=== PATIENT | female | born 1950 | race Caucasian/White ===

== ENCOUNTER 2016-10-31 20:43 | Emergency (ER) | payer OTHER ==
[~2016-10-31 20:43] MED LIST: ADVIN50050 INH; ALBU1NEB10 INH; AMIT10TA6 PO; ASPCH81X PO; ATOR-24 PO; BUPRTAB PO; DRGTP50 TOP; FEXO1TAB46 PO; FLX10 PO; FSM70 PO; FURO-85 PO; IPRA1AER2 INH; IPRASOL4 NEB; LORA10TA5 PO; MONT1TAB3 PO; NTRGSL/4 UT; ONDA4TAB46 PO; OXYC-106 PO; PANT40TA PO; POTA-327 PO; PRED10TA PO; ROPI0.5T15 PO; TIOTCAP INH
[2016-11-01] MEDS ORDERED: LACT1LOT3 TD (05:25)
[2016-11-01] MEDS ORDERED: ONDA4TAB46 PO (05:27)
[2016-11-01] MEDS ORDERED: DOCU100C31 PO (05:28)
[2016-11-01] MEDS ORDERED: ROPI2TAB6 PO (05:32)
[2016-11-01] MEDS ORDERED: ROPI1TAB PO (05:32)
[2016-11-01] MEDS ORDERED: BACL10TA PO (05:37)
[2016-11-01] MEDS ORDERED: ASCO500T16 PO (05:40)
[2016-11-01] MEDS ORDERED: TRAZ50TA35 PO (05:44)
[2016-11-02] MEDS ORDERED: ONDA4TAB46 PO (10:50)
[2016-11-02] MEDS ORDERED: FLM4 PO (10:50)
[2016-11-12] MEDS ORDERED: LCHC12280 TOP (11:46)
[2016-11-12] MEDS ORDERED: ALBINS/ INH (11:46)
[2016-11-12] MEDS ORDERED: OXGN (11:51)
[2016-11-12] MEDS ORDERED: PRED10TA PO (11:51)
[2016-11-12] MEDS ORDERED: NTRGSL/4 UT (11:51)
[2016-11-12] MEDS ORDERED: LEVO1TAB35 PO (11:51)
[2016-11-12] MEDS ORDERED: FLM4 PO (11:52)
[2016-11-19] MEDS ORDERED: OXYC-57 PO (09:26)
[2016-11-19] MEDS ORDERED: FLM4 PO (09:26)
[2016-11-19] MEDS ORDERED: NITR1CAP16 PO (09:26)
== END 2016-10-31 20:53 | disposition left against medical advice (07) ==
LOC: C.EDB 20:44
DX: R10.9 Unspecified abdominal pain (principal)

== ENCOUNTER 2016-11-01 03:17 | Emergency (ER) | payer OTHER ==
[~2016-11-01] VITALS: Ht 154.9 cm; Wt 110.6 kg
[2016-11-01] VITALS (9 sets, daily range): BP systolic 98–178; BP diastolic 58–113; PULSE 87–104; TEMP 36.8–37.6; O2SAT 90–95; Ht 154.9 cm; Wt 110.6 kg
[2016-11-01 03:39] LABS: BASO % 0.2 %; BASO ABS # 0.03 K/uL (0-0.2); COMPLETE YES; EOS % 0.2 %; HEMATOCRIT 44.2 % (37-47); IG% 0.2 %; LYMPH ABS # 0.67 K/uL (1.2-3.4); MEAN CELL VOLUME 87.2 fL (80-100); MEAN CORPUSCULAR HEMOGLOBIN 28.6 pg (25-34); MEAN CORPUSCULAR HGB CONC 32.8 g/dl (32-36); MEAN PLATELET VOLUME 12.5 fL (7.4-10.4); NEUT % 87.4 %; PLATELET COUNT 178 K/uL (130-400); RED BLOOD COUNT 5.07 M/uL (4.2-5.4); WHITE BLOOD COUNT 16.55 K/uL (4.8-10.8)
[2016-11-01 03:57] LABS: BUN/CREATININE RATIO 13.9 (10-20); CALCIUM 8.6 mg/dl (8.5-10.1); CREATININE 1.1 mg/dl (0.60-1.20); POTASSIUM 4.3 mmol/L (3.5-5.1)
[2016-11-01 04:45] LABS: MANUAL MICROSCOPIC REQUIRED? NO; REVIEW REQ? NO; URINE APPEARANCE CLEAR (CLEAR); URINE BILIRUBIN NEG (NEG); URINE COLOR YELLOW; URINE EPITHELIAL CELL AUTO >30 /lpf (0-5); URINE NITRITE NEG (NEG); URINE SPECIFIC GRAVITY 1.026 (1.000-1.030); UROBILINOGEN NEG (NEG); ZZUR CULT IF INDIC CLEAN CATCH NO
[2016-11-01] MEDS ORDERED: LACT1LOT3 TD (05:25)
[2016-11-01] MEDS ORDERED: ONDA4TAB46 PO (05:27)
[2016-11-01] MEDS ORDERED: HYDROmorphone INJ 0.5 MG/0.5 ML SYR IV STA (05:27)
[2016-11-01] MEDS ORDERED: DOCU100C31 PO (05:28)
[2016-11-01] MEDS ORDERED: CEFTRIAXONE SOD INJ 1 GM ADDVIAL IV STA (05:31)
[2016-11-01] MEDS ORDERED: ROPI1TAB PO (05:32)
[2016-11-01] MEDS ORDERED: ROPI2TAB6 PO (05:32)
[2016-11-01] MEDS ORDERED: BACL10TA PO (05:37)
[2016-11-01] MEDS ORDERED: ASCO500T16 PO (05:40)
[2016-11-01] MEDS ORDERED: TRAZ50TA35 PO (05:44)
[2016-11-01] MEDS ORDERED: TAMSULOSIN HCL 0.4 MG CAP PO SCH (05:59)
[2016-11-01] MEDS ORDERED: LEVALBUTEROL/IPRATROPIUM NEB INH PRN (06:45)
[2016-11-01] MEDS ORDERED: GLUCAGON FOR INJ 1 MG VIAL SQ PRN (06:45)
[2016-11-01] MEDS ORDERED: HYDROmorphone INJ 0.5 MG/0.5 ML SYR IV PRN (06:45)
[2016-11-01] MEDS ORDERED: OXYCODONE/ACETAMINOPHEN 10/325MG TAB PO PRN (06:45)
[2016-11-01] MEDS ORDERED: LORAZEPAM 2 MG/ML 1 ML VIAL IV PRN (06:45)
[2016-11-01] MEDS ORDERED: GLUCOSE 10 TABS/TUBE PO PRN (06:45)
[2016-11-01] MEDS ORDERED: GLUCOSE 40% GEL 15 GM TUBE PO PRN (06:45)
[2016-11-01] MEDS ORDERED: ACETAMINOPHEN 325 MG TAB PO PRN (06:45)
[2016-11-01] MEDS ORDERED: SODIUM CHLORIDE 0.45% 1000ML 1,000 ML IV ONE (06:45)
[2016-11-01] MEDS ORDERED: PROMETHAZINE HCL INJ 12.5 MG in SODIUM CHLORIDE 0.9% 50ML 50 ML IV PRN (06:45)
[2016-11-01] MEDS ORDERED: DEXTROSE 50% 50 ML SYR IV PRN (06:45)
[2016-11-01] MEDS ORDERED: IV FLUIDS COMPLETED PRN (06:45)
[2016-11-01 06:54] LABS: THYROID STIMULATING HORMONE 1.94 uIu/ml (0.300-4.500)
[2016-11-01] MEDS ORDERED: IPRATROPIUM BROMIDE NEB SOLN 0.02% 2.5 ML VIAL INH PRN (07:00)
[2016-11-01] MEDS ORDERED: LEVALBUTEROL 1.25MG/0.5ML NEB INH PRN (07:00)
--- NOTE | 2016-11-01 07:27 | EMERGENCY ROOM VISIT NOTE ---
History Report prepared by Renay: Jose Orozco Under the Supervision of: Dr. Rusty Juan M.D. First contact with patient: 03:21 Chief Complaint: FLANK PAIN Stated Complaint: FLANK PAIN History of Present Illness The patient is a 66 year old female who presents to the Emergency Room with complaints of persistent left-sided pain that started yesterday afternoon. The patient notes that the discomfort is similar to the symptoms she had in the past with kidney stones. She also complains of nausea. The patient was given 2 5 mg of Morphine and Zofran en route to the ED and notes that these helped her symptoms. Pt denies LOC, headache, fevers, chills, diaphoresis, visual changes, neck pain, chest pain, breathing difficulties, vomiting, melena, hematochezia, numbness, weakness, lymphadenopathy, rash, or other complaints. Source of History: patient Onset: yesterday afternoon Position: abdomen Timing: other (persistent) Associated Symptoms: + nausea Review of Systems See HPI for pertinent positives and negatives. A total of ten systems were reviewed and were otherwise negative. Past Medical & Surgical Medical Problems: (1) Benign hypertension (2) Calculus of kidney and ureter (3) Chronic Obstructive Asthma, Nos (4) Chronic obstructive lung disease (5) Diabetes mellitus type 2 (6) Dyslipidemia (7) Gastroesophageal reflux disease (8) Hypertension Nos (9) intractable vomiting (10) Lumbago (11) Morbid Obesity (12) Personal History, Pneumonia (Recurrent) (13) Renal colic (14) Sleep apnea (15) Spinal stenosis Family History High cholesterol Hypertension Social History Smoking Status: Current Every Day Smoker Alcohol Use: none Drug Use: none Marital Status: Housing Status: lives with family Occupation Status: retired Current/Historical Medications Scheduled Alendronate Sodium (Alendronate Sodium), 70 MG PO WK Amitriptyline Hcl (Elavil), 10 MG PO HS Ascorbic Acid (Ascorbic Acid), 500 MG PO DAILY Aspirin (Aspirin Chewable), 81 MG PO DAILY Atorvastatin (Lipitor), 40 MG PO DAILY Baclofen (Lioresal), 10 MG PO DAILY Bupropion Hcl (Wellbutrin Xl), 150 MG PO DAILY Docusate Sodium (Docusate Sodium), 100 MG PO BID Fentanyl (Fentanyl), 1 PATCH TOP [id number] Fluticasone Prop/Salmeterol (Advair Diskus 500-50 Mcg/Dose), 1 PUFF INH BID Furosemide (Lasix), 20 MG PO DAILY Lactic Acid (Ammonium Lactate) (Amlactin), 1 APPLN TD DAILY Montelukast Sodium (Singulair), 10 MG PO DAILY Pantoprazole (Protonix), 40 MG PO DAILY Potassium Ext Rel (Klor-Con), 10 MEQ PO BID Ropinirole (Requip), 1 MG PO Q AFTERNOON Ropinirole (Requip), 2 MG PO HS Tiotropium [place] (Spiriva [place]), 1 CAP INH DAILY Trazodone Hcl (Trazodone), 50 MG PO HS Scheduled PRN Ipratropium-Albuterol (Combivent Respimat), 1 PUFF INH QID PRN for SOB/Wheezing Ipratropium-Albuterol (Duoneb), 3 ML NEB QID PRN for Shortness of Breath Ondansetron Hcl (Zofran), 4 MG PO DAILY PRN for Nausea Oxycodone/Acetaminophen 10MG/325MG (Percocet 10MG/325MG), 1 TAB PO Q4H PRN for Pain Allergies Coded Allergies: Aspirin (Verified Allergy, Unknown, Patient can take upto 81 mg of ASA not any higher, 06/16/16) NSAIDs (Verified Allergy, Unknown, allergy, 06/16/16) Tramadol (Verified Adverse Reaction, Intermediate, URINARY RETENTION, ) Morphine (Verified Adverse Reaction, Mild, HALLUCINATIONS, 06/16/16) Physical Exam Vital Signs Date Time Temp Pulse Resp B/P Pulse Ox O2 Delivery O2 Flow Rate FiO2 11/01/16 06:20 95 22 171/94 96 Room Air 11/01/16 05:38 96 20 114/80 96 11/01/16 04:15 95 16 114/80 98 11/01/16 03:39 92 11/01/16 03:21 36.8 97 20 122/103 95 Room Air Physical Exam GENERAL: Awake, alert, well-appearing, in no distress HENT: Normocephalic, atraumatic. Oropharynx unremarkable. EYES: Normal conjunctiva. Sclera non-icteric. NECK: Supple. No nuchal rigidity. FROM. No JVD. RESPIRATORY: Clear to auscultation. CARDIAC: Regular rate, normal rhythm. Extremities warm and well perfused. Pulses equal. ABDOMEN: Soft, non-distended. No tenderness to palpation. No rebound or guarding. No masses. RECTAL: Deferred. MUSCULOSKELETAL: Chest examination reveals no tenderness. The back is symmetrical on inspection without obvious abnormality. There is left CVA tenderness to palpation. No joint edema. LOWER EXTREMITIES: Calves are equal size bilaterally and non-tender. No edema. No discoloration. NEURO: Normal sensorium. No sensory or motor deficits noted. SKIN: No rash or jaundice noted. Medical Decision & Procedures ER Provider Diagnostic Interpretation: Radiology results as stated below per my review and radiologist interpretation CT Abdomen & Pelvis: Comparison with CT dated 01/08/2014 6.5 mm calculus at the left UPJ with moderate left hydronephrosis and associated left renal enlargement and left perinephric stranding/fluid; these are findings are all likely obstructive. However would correlate clinically to exclude any superimposed infection. Multiple small left lower pole nonobstructing calyceal calculi. No bowel obstruction. No appendicitis or other inflammatory changes of bowel. Colonic diverticulitis. Pancreas and gallbladder are grossly unremarkable. Small hypodensities involving the nonenlarged spleen. No free air or free fluid. No other acute disease. Laboratory Results 11/01/16 02:55 Red Blood Count 5.07, Mean Corpuscular Volume 87.2, Mean Corpuscular Hemoglobin 28.6, Mean Corpuscular Hemoglobin Concent 32.8, Mean Platelet Volume 12.5, Neutrophils (%) (Auto) 87.4, Lymphocytes (%) (Auto) 4.0, Monocytes (%) (Auto) 8.0, Eosinophils (%) (Auto) 0.2, Basophils (%) (Auto) 0.2, Neutrophils # (Auto) 14.45, Lymphocytes # (Auto) 0.67, Monocytes # (Auto) 1.32, Eosinophils # (Auto) 0.04, Basophils # (Auto) 0.03 11/01/16 02:55 Test 11/01/16 02:55 11/01/16 04:30 11/01/16 07:10 White Blood Count 16.55 K/uL (4.8-10.8) Red Blood Count 5.07 M/uL (4.2-5.4) Hemoglobin 14.5 g/dL (12.0-16.0) Hematocrit 44.2 % (37-47) Mean Corpuscular Volume 87.2 fL (80-100) Mean Corpuscular Hemoglobin 28.6 pg (25-34) Mean Corpuscular Hemoglobin Concent 32.8 g/dl (32-36) Platelet Count 178 K/uL (130-400) Mean Platelet Volume 12.5 fL (7.4-10.4) Neutrophils (%) (Auto) 87.4 % Lymphocytes (%) (Auto) 4.0 % Monocytes (%) (Auto) 8.0 % Eosinophils (%) (Auto) 0.2 % Basophils (%) (Auto) 0.2 % Neutrophils # (Auto) 14.45 K/uL (1.4-6.5) Lymphocytes # (Auto) 0.67 K/uL (1.2-3.4) Monocytes # (Auto) 1.32 K/uL (0.11-0.59) Eosinophils # (Auto) 0.04 K/uL (0-0.5) Basophils # (Auto) 0.03 K/uL (0-0.2) RDW Standard Deviation 48.6 fL (36.4-46.3) RDW Coefficient of Variation 15.3 % (11.5-14.5) Immature Granulocyte % (Auto) 0.2 % Immature Granulocyte # (Auto) 0.04 K/uL (0.00-0.02) Anion Gap 8.0 mmol/L (3-11) Est Creatinine Clear Calc Drug Dose 57.7 ml/min Estimated GFR () 60.6 Estimated GFR (Non- 52.3 BUN/Creatinine Ratio 13.9 (10-20) Calcium Level 8.6 mg/dl (8.5-10.1) Magnesium Level 2.0 mg/dl (1.8-2.4) Total Bilirubin 0.7 mg/dl (0.2-1) Direct Bilirubin 0.1 mg/dl (0-0.2) Aspartate Amino Transf (AST/SGOT) 21 U/L (15-37) Alanine Aminotransferase (ALT/SGPT) 38 U/L (12-78) Alkaline Phosphatase 92 U/L (45-117) Total Protein 7.4 gm/dl (6.4-8.2) Albumin 3.9 gm/dl (3.4-5.0) Lipase 148 U/L (73-393) Thyroid Stimulating Hormone (TSH) 1.940 uIu/ml (0.300-4.500) Urine Color YELLOW Urine Appearance CLEAR (CLEAR) Urine pH 8.0 (4.5-7.5) Urine Specific [place] 1.026 (1.000-1.030) Urine Protein NEG (NEG) Urine Glucose (UA) TRACE (NEG) Urine Ketones NEG (NEG) Urine Occult Blood NEG (NEG) Urine Nitrite NEG (NEG) Urine Bilirubin NEG (NEG) Urine Urobilinogen NEG (NEG) Urine Leukocyte Esterase TRACE (NEG) Urine WBC (Auto) 1-5 /hpf (0-5) Urine RBC (Auto) 0-4 /hpf (0-4) Urine Hyaline Casts (Auto) 0 /lpf (0-5) Urine Epithelial Cells (Auto) >30 /lpf (0-5) Urine Bacteria (Auto) NEG (NEG) Laboratory results reviewed by me Medications Administered Medications (Trade) Dose Ordered Sig/Christiana Route Start Time Stop Time Status Last Admin Dose Admin Hydromorphone HCl (Dilaudid Inj) 0.5 mg NOW STAT IV 11/01/16 05:27 11/01/16 05:31 DC 11/01/16 05:40 0.5 MG Ceftriaxone Sodium (Rocephin Inj) 1 gm NOW STAT IV 11/01/16 05:31 11/01/16 05:33 DC 11/01/16 05:40 1 GM Tamsulosin HCl (Flomax Cap) 0.4 mg 0559 PO 11/01/16 05:59 11/01/16 06:30 DC 11/01/16 06:18 0.4 MG ED Course 0331: The patient was evaluated in room B10. A complete history and physical exam was performed. 0520: At this time, I reevaluated the patient and she was resting. She asked for her dose of chronic pain medicine that she is prescribed. Dilaudid was ordered. 0527: Ordered Dilaudid Inj 0.5 mg IV. 0529: At this time, the patient was reevaluated and she was resting. 0531: Ordered Rocephin Inj 1 gm. 0542: At this time, I discussed the patient's case with Dr. Soto - Hospitalist Kelly and he agreed to accept the patient for further evaluation. Medical Decision Prior records/ancillary studies reviewed. Triage Nursing notes reviewed and agree them. Additional history obtained from the family. The patient's history was concerning for flank and abdominal pain. Differential diagnosis: Etiologies such as renal colic, appendicitis, diverticulitis, mesenteric ischemia, aortic pathology, infections, inflammatory bowel disease, PUD, biliary pathology, UTI, as well as others were entertained. Physical examination findings: As above. ER treatment provided: IV Dilaudid IV Rocephin On reassessment the patient felt better. Diagnostic interpretation by me: The labs revealed a moderate leukocytosis of 16,000. CT imaging raise concerns about possible infection although the patient's urinalysis was unremarkable. Chemistry panel unremarkable. Urine culture pending. Imaging studies: CT of the abdomen and pelvis as above. The patient has a significant leukocytosis, large stone, and abnormal CT. I discussed further evaluation and management in the hospital. The patient was in agreement. Consultation: A consultation was placed with the hospitalist. The case was discussed and diagnostics were reviewed. The patient was evaluated in the ER for further treatment. The chart was completed utilizing [employer] Speech voice recognition software. Grammatical errors, random word insertions, pronoun errors, and incomplete sentences are an occasional consequence of this system due to software limitations, ambient noise, and hardware issues. Any formal questions or concerns about the content, text, or information contained within the body of this dictation should be directly addressed to the physician for clarification. Consults Time Called: [phone] Consulting Physician: Dr. Soto - Loraine Mendoza Returned Call: [phone] At this time, I discussed the patient's case with Dr. Soto and he agreed to accept the patient for further evaluation. Impression Primary Impression: Kidney stone Scribe Attestation The scribe's documentation has been prepared under my direction and personally reviewed by me in its entirety. I confirm that the note above accurately reflects all work, treatment, procedures, and medical decision making performed by me. Departure Information Dispostion Being Evaluated By Hospitalist Mariano Baldwin D.O. (PCP)
--- NOTE | 2016-11-01 07:29 | DIAGNOSTIC IMAGING REPORT ---
ABDOMEN AND PELVIS CT WITHOUT CONTRAST CT DOSE: 2076.27 mGy.cm HISTORY: Pain left flank pain TECHNIQUE: Multiaxial CT images of the abdomen and pelvis were performed without the use of intravenous and oral contrast according to the standard department stone protocol. COMPARISON STUDY: None. FINDINGS: Lung bases are clear. Liver pancreas is unremarkable. Several potential cysts/hypodensities in the spleen. Pancreas is uniform. Right kidney is negative for hydronephrosis. Multiple nonobstructing calcifications left kidney. Moderate left hydroureteronephrosis. 5 mm calculus left ureteropelvic junction. Ureters otherwise are normal in course and caliber. Bladder is midline. Bowel pattern is nonobstructive. The appendix is normal. IMPRESSION: 1. Obstructing 5 mm calculus left ureteropelvic junction. 2. Moderate left hydronephrosis. 3. Multiple nonobstructing calcifications mid to lower aspect left kidney. Electronically signed by: Camron Ramsey M.D. 11/01/2016 7:27 AM Dictated Date/Time: 11/01/2016 7:22 AM
[2016-11-01 07:35] LABS: PARTIAL THROMBOPLASTIN RATIO 0.9; PROTHROMBIN TIME (PATIENT) 10.3 SECONDS (9.0-12.0)
--- NOTE | 2016-11-01 08:08 | HISTORY & PHYSICAL EXAMINATION ---
DATE OF ADMISSION: 11/01/2016 PRIMARY CARE DOCTOR: Dr. Torres. Hx obtained from px and records. CHIEF COMPLAINT: Left flank pain. HISTORY OF PRESENT ILLNESS: Medical history significant for chronic respiratory failure secondary to COPD on home O2, past tobacco abuse, chronic pain on narcotics, DM2 diet controlled, mood/ anxiety disorder, urolithiasis. Recent confinement last April 2015 for COPD exacerbation. Ffw days history of achy left flank pain similar to kidney stone pain. No fever, no chills, no hematuria. Intractable pain in the Emergency Room. MEDICAL HISTORY: As above. SURGERIES: She has had urologic procedures, cataract surgery, tonsillectomy, breast punch biopsy, tonsillectomy. HOME MEDICATIONS: Include Klor-Con, Requip, Spiriva, trazodone, DuoNeb, Singulair, Zofran, Percocet, Protonix, docusate sodium, Lasix, fentanyl patch, Advair Diskus, Combivent, Elavil, ascorbic acid, aspirin chewable, alendronate, Lipitor, Wellbutrin. ALLERGIES: MORPHINE, TRAMADOL, NSAIDs. FAMILY HISTORY: Hypertension. PERSONAL AND SOCIAL HISTORY: past tobacco abuse. denies chronic ETOH intake. 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 REVIEW OF SYSTEMS: As per HPI, all other ROS negative. PHYSICAL EXAMINATION: VITAL SIGNS: Blood pressure was noted to be 122/70, pulse rate 97, RR 21, T 37 O2sats 95 on room air. GENERAL: Noted to be uncomfortable, obese, looks older for stated age, no resp distress. SKIN: Normal color. HEENT: [place] palpebral conjunctivae. Dry mucosa. NECK: Short neck. LUNGS: Decreased breath sounds. Occasional wheeze. HEART: Regular rate and rhythm. ABDOMEN: Soft. BCAK : No flank pain. EXTREMITIES: No edema. No tenderness. NEUROLOGIC: No gross focality. LABS: Hemoglobin was noted to be 14.5, white cell count 16.5, platelets 178. Sodium 141, potassium 4, chloride 104, CO2 of 29, BUN 50, creatinine 1, glucose 188 Hemoglobin A1c from [address] of the abdomen and pelvis initial read showed 6.5 mm calculus at left UPJ with moderate left hydronephrosis, perinephric stranding. Correlate clinically for superimposed infection; no enlarged spleen. UA, trace WBC esterase. ASSESSMENT: 1. Renal colic, L hx recurrent urolithiasis No sepsis for now. 2. Hypertension, stable. 3. Chronic resp failure 2 to COPD on home O2 pulmo status at baseline 4. past tobacco abuse 5. chronic pain on narcotics 6. DM2, diet controlled well controlled as of recent outpx HgA1c. PLAN: Observation GMF Flomax trial, analgesia, IVF, strain urine low threshold for initiating antibiotic rx if w/ fever spike Urology consult L renal colic (px known to Dr. Elizalde) ISS BG goal 140-180, px due for hemoglobin A1c recheck DVT prophylaxis, Lovenox subQ. Full code. MTDD
[2016-11-01] MEDS ORDERED: FENTANYL 50 MCG/HR TDSY TD SCH (09:00)
[2016-11-01] MEDS: MONTELUKAST SOD 10 MG TAB PO SCH ×2 (09:00→09:25)
[2016-11-01 09:09] LABS: ESTIMATED AVERAGE GLUCOSE 154 mg/dl; HA1C FLAG Normal (Normal)
[2016-11-01] MEDS: DOCUSATE SODIUM 100 MG CAP PO SCH ×2 (09:25→21:47)
[2016-11-01] MEDS: ASPIRIN 81 MG ECTAB PO SCH (09:25)
[2016-11-01] MEDS: FLUTICASONE/SALMETEROL (ADVAIR) 500/50 INH 14 PUFF INH SCH ×2 (09:25→21:47)
[2016-11-01] MEDS: TIOTROPIUM BROMIDE 5 PUFF/90 MCG INH INH SCH (09:25)
[2016-11-01] MEDS: BuPROPion XL 150 MG TABCR PO SCH (09:25)
[2016-11-01] MEDS: PANTOprazole SOD 40 MG TAB PO SCH (09:25)
[2016-11-01] MEDS: BACLOFEN 10 MG TAB PO SCH (09:25)
[2016-11-01] MEDS: ATORVASTATIN 40 MG TAB PO SCH (09:25)
[2016-11-01] MEDS: ENOXAPARIN 40 MG/0.4 ML SYR SQ SCH (09:30)
--- NOTE | 2016-11-01 10:20 | Urology Consultation ---
History General Date of Service: Nov 01, 2016. Chief Complaint: stones Primary Care Physician: Mariano Torres D.O. Pt seen a urologist before?: Yes If yes, why?: stones History of Present Illness I am asked by Dr Fonseca to evaluate and treat patient for stones. he is admitted with left renal colic. The ct scna shows left perinephric stranding and an obstructing left UPJ 5mm stone. She has an even larger 11mm stone in the left lower pole. She has had many stones and some ESWL with Dr Cabezas years ago. She has had pain nausea for one day. No fevers. Imaging Imaging: CT Laboratory Results Past 24 Hours Test 11/01/16 02:55 11/01/16 04:30 11/01/16 07:10 Range/Units White Blood Count 16.55 4.8-10.8 K/uL Red Blood Count 5.07 4.2-5.4 M/uL Hemoglobin 14.5 12.0-16.0 g/dL Hematocrit 44.2 37-47 % Mean Corpuscular Volume 87.2 80-100 fL Mean Corpuscular Hemoglobin 28.6 25-34 pg Mean Corpuscular Hemoglobin Concent 32.8 32-36 g/dl Platelet Count 178 130-400 K/uL Mean Platelet Volume 12.5 7.4-10.4 fL Neutrophils (%) (Auto) 87.4 % Lymphocytes (%) (Auto) 4.0 % Monocytes (%) (Auto) 8.0 % Eosinophils (%) (Auto) 0.2 % Basophils (%) (Auto) 0.2 % Neutrophils # (Auto) 14.45 1.4-6.5 K/uL Lymphocytes # (Auto) 0.67 1.2-3.4 K/uL Monocytes # (Auto) 1.32 0.11-0.59 K/uL Eosinophils # (Auto) 0.04 0-0.5 K/uL Basophils # (Auto) 0.03 0-0.2 K/uL RDW Standard Deviation 48.6 36.4-46.3 fL RDW Coefficient of Variation 15.3 11.5-14.5 % Immature Granulocyte % (Auto) 0.2 % Immature Granulocyte # (Auto) 0.04 0.00-0.02 K/uL Sodium Level 141 136-145 mmol/L Potassium Level 4.3 3.5-5.1 mmol/L Chloride Level 104 98-107 mmol/L Carbon Dioxide Level 29 21-32 mmol/L Anion Gap 8.0 3-11 mmol/L Blood Urea Nitrogen 15 7-18 mg/dl Creatinine 1.10 0.60-1.20 mg/dl Est Creatinine Clear Calc Drug Dose 57.7 ml/min Estimated GFR () 60.6 Estimated GFR (Non- 52.3 BUN/Creatinine Ratio 13.9 10-20 Random Glucose 188 70-99 mg/dl Estimated Average Glucose 154 mg/dl Hemoglobin A1c 7.0 4.5-5.6 % Calcium Level 8.6 8.5-10.1 mg/dl Magnesium Level 2.0 1.8-2.4 mg/dl Total Bilirubin 0.7 0.2-1 mg/dl Direct Bilirubin 0.1 0-0.2 mg/dl Aspartate Amino Transf (AST/SGOT) 21 15-37 U/L Alanine Aminotransferase (ALT/SGPT) 38 12-78 U/L Alkaline Phosphatase 92 45-117 U/L Total Protein 7.4 6.4-8.2 gm/dl Albumin 3.9 3.4-5.0 gm/dl Lipase 148 73-393 U/L Thyroid Stimulating Hormone (TSH) 1.940 0.300-4.500 uIu/ml Urine Color YELLOW Urine Appearance CLEAR CLEAR Urine pH 8.0 4.5-7.5 Urine Specific [place] 1.026 1.000-1.030 Urine Protein NEG NEG Urine Glucose (UA) TRACE NEG Urine Ketones NEG NEG Urine Occult Blood NEG NEG Urine Nitrite NEG NEG Urine Bilirubin NEG NEG Urine Urobilinogen NEG NEG Urine Leukocyte Esterase TRACE NEG Urine WBC (Auto) 1-5 0-5 /hpf Urine RBC (Auto) 0-4 0-4 /hpf Urine Hyaline Casts (Auto) 0 0-5 /lpf Urine Epithelial Cells (Auto) >30 0-5 /lpf Urine Bacteria (Auto) NEG NEG Prothrombin Time 10.3 9.0-12.0 SECONDS Prothromb Time International Ratio 1.0 0.9-1.1 Activated Partial Thromboplast Time 24.5 21.0-31.0 SECONDS Partial Thromboplastin Ratio 0.9 Microbiology Results 11/01/16 Urine Culture, Received Pending Labs were reviewed and are within normal limits unless listed below. Labs are available in the chart and at [facility] Problem List Medical Problems: (1) Back pain Status: Acute (2) Contusion of left chest wall Status: Acute (3) Cough Status: Acute (4) Kidney stone Status: Acute Past History anxiety, asthma, COPD, diabetes, hypertension Past Surgical History: other (stone surgery ) Family History High cholesterol Hypertension Social History Hx Tobacco Use In Past Year?: No Smoking: quit greater than 1 year Alcohol: socially Drug use: none Marital status: Housing status: lives with family Occupation status: retired Immunizations History of Influenza Vaccine: No Influenza Vaccine Date: Jun 15, 2012 History of Tetanus Vaccine?: Yes Tetanus Immunization Date: Feb 23, 2011 History of Pneumococcal: Yes Pneumococcal Date: Aug 07, 2005 History of Hepatitis B Vaccine: No History of MDRO No Allergies Coded Allergies: Aspirin (Verified Allergy, Unknown, Patient can take upto 81 mg of ASA not any higher, 06/16/16) NSAIDs (Verified Allergy, Unknown, allergy, 06/16/16) Tramadol (Verified Adverse Reaction, Intermediate, URINARY RETENTION, ) Morphine (Verified Adverse Reaction, Mild, HALLUCINATIONS, 06/16/16) Medications Home Medications: Home Meds and Scripts Medications Dose Route/Sig Max Daily Dose Days Date Category Dose Instructions Trazodone (Trazodone HCl) 50 Mg Tab 50 Mg PO HS 11/01/16 Reported Ascorbic Acid 500 Mg Tab 500 Mg PO DAILY 11/01/16 Reported Lioresal (Baclofen) 10 Mg Tab 10 Mg PO DAILY 11/01/16 Reported Requip (Ropinirole HCl) 2 Mg Tab 2 Mg PO HS 11/01/16 Reported Requip (Ropinirole HCl) 1 Mg Tab 1 Mg PO Q AFTERNOON 11/01/16 Reported Docusate Sodium 100 Mg Cap 100 Mg PO BID 11/01/16 Reported Zofran (Ondansetron HCl) 4 Mg Tab 4 Mg PO DAILY PRN 11/01/16 Reported Amlactin (Lactic Acid (Ammonium Lactate)) 12 % Lot 1 Appln TD DAILY 11/01/16 Reported APPLY TO DRY AREAS ON FEET DAILY Alendronate Sodium 70 Mg Tab 70 Mg PO WK 06/16/16 Reported Singulair (Montelukast Sodium) 10 Mg Tab 10 Mg PO DAILY 09/03/15 Reported Duoneb (Ipratropium-Albuterol) 3 Ml Nebu 3 Ml NEB QID PRN 04/25/15 Reported Elavil (Amitriptyline Hcl) 10 Mg Tab 10 Mg PO HS 01/27/15 Reported Percocet 10MG/325MG (Oxycodone/Acetaminophen) Tab 1 Tab PO Q4H PRN 01/27/15 Reported Fentanyl 50 Mcg Tdsy 1 Patch TOP [id number] 02/08/14 Reported Advair Diskus 500-50 Mcg/Dose (Fluticasone Prop/Salmeterol) 14 Puff/1 Inhaler Aerp 1 Puff INH BID 02/08/14 Reported Wellbutrin Xl (Bupropion Hcl) 150 Mg Tab 150 Mg PO DAILY 01/26/14 Reported Lasix (Furosemide) 20 Mg Tab 20 Mg PO DAILY 06/12/13 Reported Combivent Respimat (Ipratropium-Albuterol) 1 Aer Aer 1 Puff INH QID PRN 02/14/13 Reported Lipitor (Atorvastatin Calcium) 40 Mg Tab 40 Mg PO DAILY 10/20/12 Reported Aspirin Chewable (Aspirin) 81 Mg Chew 81 Mg PO DAILY 07/25/12 Reported Protonix (Pantoprazole Sodium) 40 Mg Tab 40 Mg PO DAILY 12/08/11 Reported Spiriva Handihaler (Tiotropium [place]) 18 Mcg/ Aerp 1 Cap INH DAILY 01/28/11 Reported Klor-Con (Potassium Chloride) 10 Meq Tabcr 10 Meq PO BID 05/22/09 Reported Inpatient Medications: Current Inpatient Medications Medications (Trade) Dose Ordered Sig/Christiana Route Start Time Stop Time Status Last Admin Dose Admin Tamsulosin HCl (Flomax Cap) 0.4 mg QAM PO 11/02/16 09:00 12/02/16 08:59 Enoxaparin Sodium (Lovenox Inj) 40 mg DAILY@0900 SQ 11/01/16 09:00 12/01/16 08:59 11/01/16 09:30 40 MG Acetaminophen (Tylenol Tab) 650 mg Q4H PRN PO 11/01/16 06:45 12/01/16 06:44 Insulin Aspart (novoLOG ASPART) SLIDING SCALE If C... ACHS SC 11/01/16 11:00 12/01/16 10:59 Glucose (Glucose 40% Gel) 15-30 GRAMS 15 GRAMS... UD PRN PO 11/01/16 06:45 12/01/16 06:44 Glucose (Glucose Chew Tab) 4-8 Tablets 4 Tabl... UD PRN PO 11/01/16 06:45 12/01/16 06:44 Dextrose (Dextrose 50% 50ML Syringe) 25-50ML OF 50% DW IV FOR... UD PRN IV 11/01/16 06:45 12/01/16 06:44 Glucagon (Glucagon Inj) 1 mg UD PRN SQ 11/01/16 06:45 12/01/16 06:44 Hydromorphone HCl (Dilaudid Inj) 0.5 mg Q3H PRN IV 11/01/16 06:45 11/15/16 06:44 Lorazepam (Ativan Inj) 0.5 mg Q4H PRN IV 11/01/16 06:45 12/01/16 06:44 Ondansetron HCl 4 mg 4 mg Q6H PRN IV 11/01/16 06:45 12/01/16 06:44 Promethazine HCl 12.5 mg/Sodium Chloride 50.5 ml @ 204 mls/hr Q6H PRN IV 11/01/16 06:45 12/01/16 06:44 Sodium Chloride (1/2 Nss 1000ml) 1,000 ml @ 100 mls/hr Q10H ONCE IV 11/01/16 06:45 11/01/16 16:44 11/01/16 08:37 100 MLS/HR Amitriptyline HCl (Elavil Tab) 10 mg HS PO 11/01/16 21:00 12/01/16 20:59 Aspirin (Ecotrin Tab) 81 mg DAILY PO 11/01/16 09:00 12/01/16 08:59 11/01/16 09:25 81 MG Atorvastatin Calcium (Lipitor Tab) 40 mg DAILY PO 11/01/16 09:00 12/01/16 08:59 11/01/16 09:25 40 MG Baclofen (Lioresal Tab) 10 mg DAILY PO 11/01/16 09:00 12/01/16 08:59 11/01/16 09:25 10 MG Bupropion HCl (Wellbutrin-Xl Tab) 150 mg DAILY PO 11/01/16 09:00 12/01/16 08:59 11/01/16 09:25 150 MG Docusate Sodium (coLACE CAP) 100 mg BID PO 11/01/16 09:00 12/01/16 08:59 11/01/16 09:25 100 MG Fentanyl (Duragesic Patch) 50 mcg Q72H TD 11/01/16 09:00 11/15/16 08:59 11/01/16 09:33 50 MCG Salmeterol Xinafoate/ Fluticasone (Advair Diskus 500/50 Inh) 1 puff BID INH 11/01/16 09:00 12/01/16 08:59 11/01/16 09:25 1 PUFF Pantoprazole Sodium (Protonix Tab) 40 mg DAILY PO 11/01/16 09:00 12/01/16 08:59 11/01/16 09:25 40 MG Ropinirole HCl (Requip Tab) 1 mg DAILY@1300 PO 11/01/16 13:00 12/01/16 12:59 Ropinirole HCl (Requip Tab) 2 mg HS PO 11/01/16 21:00 12/01/16 20:59 Tiotropium [place] (Spiriva Handihaler Inhaler) 1 puff DAILY INH 11/01/16 09:00 12/01/16 08:59 11/01/16 09:25 1 PUFF Trazodone HCl (Desyrel Tab) 50 mg HS PO 11/01/16 21:00 12/01/16 20:59 Oxycodone/ Acetaminophen (Percocet 10-325MG Tab) pain not relieved by tyle... Q4H PRN PO 11/01/16 06:45 11/15/16 06:44 Miscellaneous (Iv Fluids Completed) 1 ea PRN PRN N/A 11/01/16 06:45 11/01/17 06:44 Ipratropium [place] (Atrovent 0.02% 0.5MG/2.5ML Neb) 0.5 mg Q4H PRN INH 11/01/16 07:00 12/01/16 06:59 Levalbuterol (Xopenex 1.25MG/ 0.5ML Neb) 1.25 mg Q4H PRN INH 11/01/16 07:00 12/01/16 06:59 Miscellaneous (Fentanyl Patch Remove & Waste) 1 ea Q3D@0859 N/A 11/04/16 08:59 12/04/16 08:58 Miscellaneous Information (Check Fentanyl Patch Placement) 1 ea QS N/A 11/01/16 16:00 12/01/16 15:59 Montelukast Sodium (Singulair Tab) 10 mg HS PO 11/01/16 21:00 12/01/16 08:59 UNV Review of Systems Review of Systems Constitutional: No chills, No weight loss Neurological: No dizzy Endocrine: + excessive thirst, + tired/sluggish, No too cold, No too hot Gastrointestinal: + abdominal pain, + indigestion, + nausea, No constipation, No diarrhea Cardiovascular: No chest pain, No palpitations, No swelling ankles/feet Respiratory: + chronic cough, + shortness of breath Female : + infections, + kidney stones, No blood in urine, No frequent urination, No painful urination, No weak stream Physical Exam Vital Signs: Vital Signs Past 12 Hours Date Time Temp Pulse Resp B/P Pulse Ox O2 Delivery O2 Flow Rate FiO2 11/01/16 07:53 37.0 95 18 129/68 92 Room Air 11/01/16 07:40 90 22 155/79 96 11/01/16 06:20 95 22 171/94 96 Room Air 11/01/16 05:38 96 20 114/80 96 11/01/16 04:15 95 16 114/80 98 11/01/16 03:39 92 11/01/16 03:21 36.8 97 20 122/103 95 Room Air Physical Exam: General Appearance: WD/WN, no apparent distress, + obese Eyes: bilateral eyes normal inspection ENT: hearing grossly normal Neck: supple, no adenopathy, no JVD Respiratory/Chest: no respiratory distress, no accessory muscle use, + decreased breath sounds Cardiovascular: regular rate, rhythm, no edema Gastrointestinal: Abdomen: LUQ tenderness Bladder: normal bladder Renal: cva tenderness (left) Liver: normal liver Spleen: normal spleen Extremities: non-tender, normal inspection, no pedal edema, normal capillary refill Assessment & Plan Assessment & Plan obstructing 5mm left upj stone even larger left lp stone plan staged approach stent today under sedation and then in 2-3 weeks a left ureteroscopy to laser and remove all stones. 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
[2016-11-01] MEDS: INSULIN ASPART 100 UNITS/ML 3 ML PEN SC SCH ×3 (11:00→21:00)
[2016-11-01] MEDS ORDERED: LIDOCAINE 2% 20 MG/ML 5ML SYR ONE (12:27)
[2016-11-01] MEDS ORDERED: PROPOFOL IV EMULSION 10 MG/ML 20 ML VIAL IV ONE (12:27)
[2016-11-01] MEDS ORDERED: FENTANYL CITRATE INJ 50 MCG/1 ML 2 ML VIAL ONE (12:28)
[2016-11-01] MEDS ORDERED: MIDAZOLAM HCL 1 MG/ML 2ML VIAL ONE (12:28)
[2016-11-01] MEDS ORDERED: ROPINIROLE HCL 1 MG TAB PO SCH ×2 (13:00→21:00)
[2016-11-01] MEDS ORDERED: SODIUM CHLORIDE 0.9% INJ 10 ML VIAL ONE (13:24)
[2016-11-01] MEDS ORDERED: KETAMINE HCL INJ 50 MG/ML 10 ML VIAL ONE (13:24)
[2016-11-01] MEDS ORDERED: BELLADONNA/OPIUM SUPP 60 MG SUPP PR ONE ×2 (13:34→13:56)
--- NOTE | 2016-11-01 13:57 | [facility] Operative Report ---
Operative Report Operative Date Nov 01, 2016. Pre-Operative Diagnosis obstructing left upj stone, left renal stone, renal insufficiency Post-Operative Diagnosis same Procedure(s) Performed cysto left stent placement Surgeon naveed Associate Justice Surgeon(s) none Estimated Blood Loss 0mL Findings radio-opaque left upj stone and left lp renal stones Fluids 200mL Specimens none Drains 6 fr 24 centimeter double J stent Anesthesia iv sedation Complication(s) None Disposition Recovery Room / PACU (icu on the weekends) Indications severe pain from an obstructing 5mm left upj stone. also has larger left lp renal stones. plan stent to temporize pain and dilate ureter then do stone removal surgery in a few weeks. Description of Procedure Patient was sedated and placed in lithotomy position. Her severe COPD required her to have her torso elevated on blankets and pillows to ease respiration. Her genitals were prepped and draped in sterile fashion. Time out held with team. I placed a 21 fr rigid cystoscope to bladder. The urethra is unremarkable. The UOs are wide slit shape. There are small amounts white debris in the bladder but no bladder erythema. I placed a road runner wire up left ureter and placed a 24 centimeter 6 Fr double J stent easily. There is brisk efflux after placement. I left bladder empty and concluded case. I placed a belladonna and opium suppository for post-op pain. She transferred to recovery under my escort, in stable condition. Plan: Home today flomax daily oral pain meds as needed plan outpatient surgery for stones in 2-3 weeks ASA 4 clean contaminated case 8 seconds fluoro ceftriaxone antibiotic earlier this am. I attest to the content of the Intraoperative Record and any orders documented therein. Any exceptions are noted below.
--- NOTE | 2016-11-01 14:00 | DIAGNOSTIC IMAGING REPORT ---
Retrograde pyelogram RETROGRADE INCLUDES KUB CLINICAL HISTORY: CYSTO STENT stent placement TECHNIQUE: Image intensifier COMPARISON STUDY: CT abdomen and pelvis same date FINDINGS: Image intensifier was used for a left ureteral stent placement IMPRESSION: Image intensifier was used for left ureteral stent placement Electronically signed by: Camron Ramsey M.D. 11/01/2016 1:59 PM Dictated Date/Time: 11/01/2016 1:58 PM
[2016-11-01] MEDS ORDERED: ONDANSETRON INJ 2 MG/ML 2 ML VIAL ONE (14:10)
[2016-11-01] MEDS ORDERED: NURSING VERBAL MED ORDER ONE (14:10)
[2016-11-01] MEDS ORDERED: ONDANSETRON INJ 2 MG/ML 2 ML VIAL IV ONE (15:00)
--- NOTE | 2016-11-01 15:46 | Anesthesiology Progress Note ---
Anesthesia Post Op Note Date & Time Nov 01, 2016 at 15:46 Vital Signs Pain Intensity: 0 Vital Signs Past 12 Hours Date Time Temp Pulse Resp B/P Pulse Ox O2 Delivery O2 Flow Rate FiO2 11/01/16 14:35 94 18 98/58 92 Room Air 11/01/16 14:20 37.6 95 20 111/76 94 Room Air 11/01/16 14:05 36.5 90 20 126/72 96 Nasal Cannula 3 11/01/16 13:55 36.5 93 20 120/70 96 Nasal Cannula 3 11/01/16 13:47 36.5 96 20 138/84 96 Nasal Cannula 3 11/01/16 07:53 37.0 95 18 129/68 92 Room Air 11/01/16 07:40 90 22 155/79 96 11/01/16 06:20 95 22 171/94 96 Room Air 11/01/16 05:38 96 20 114/80 96 11/01/16 04:15 95 16 114/80 98 Notes Mental Status: alert / awake / arousable, participated in evaluation Pt Amnestic to Procedure: Yes Nausea / Vomiting: adequately controlled Pain: adequately controlled Airway Patency, RR, SpO2: stable & adequate BP & HR: stable & adequate Hydration State: stable & adequate Anesthetic Complications: no major complications apparent
[2016-11-01] MEDS: CHECK FENTANYL PATCH PLACEMENT SCH (16:49)
[2016-11-01] MEDS ORDERED: KETOROLAC TROMETHAMINE 30 MG/ML VIAL IV ONE (17:00)
--- NOTE | 2016-11-01 18:10 | Progress Note ---
Subjective Date of Service: Nov 01, 2016. Subjective Pt evaluation today including: conversation w/ patient, physical exam, lab review, review of studies, review of inpatient medication list Saw/examined the patient in room 253 She had a stent put in earlier today; continues to have left flank pain telling me she can't go home because of pain no nausea, no fevers Problem List Medical Problems: (1) Back pain Status: Acute (2) Contusion of left chest wall Status: Acute (3) Cough Status: Acute (4) Kidney stone Status: Acute Review of Systems Constitutional: No chills, No fever, No weakness Respiratory: No shortness of breath Cardiac: No chest pain Abdomen: + pain, + see HPI, No diarrhea, No nausea, No vomiting Musculoskeletal: No see HPI Female : No dysuria, No hematuria, No incontinence, No urinary frequency Heme: No abnormal bleeding/bruising Medications Current Inpatient Medications Medications (Trade) Dose Ordered Sig/Christiana Route Start Time Stop Time Status Last Admin Dose Admin Tamsulosin HCl (Flomax Cap) 0.4 mg QAM PO 11/02/16 09:00 12/02/16 08:59 Enoxaparin Sodium (Lovenox Inj) 40 mg DAILY@0900 SQ 11/01/16 09:00 12/01/16 08:59 11/01/16 09:30 40 MG Acetaminophen (Tylenol Tab) 650 mg Q4H PRN PO 11/01/16 06:45 12/01/16 06:44 Insulin Aspart (novoLOG ASPART) SLIDING SCALE If C... ACHS SC 11/01/16 11:00 12/01/16 10:59 Glucose (Glucose 40% Gel) 15-30 GRAMS 15 GRAMS... UD PRN PO 11/01/16 06:45 12/01/16 06:44 Glucose (Glucose Chew Tab) 4-8 Tablets 4 Tabl... UD PRN PO 11/01/16 06:45 12/01/16 06:44 Dextrose (Dextrose 50% 50ML Syringe) 25-50ML OF 50% DW IV FOR... UD PRN IV 11/01/16 06:45 12/01/16 06:44 Glucagon (Glucagon Inj) 1 mg UD PRN SQ 11/01/16 06:45 12/01/16 06:44 Hydromorphone HCl (Dilaudid Inj) 0.5 mg Q3H PRN IV 11/01/16 06:45 11/15/16 06:44 Lorazepam (Ativan Inj) 0.5 mg Q4H PRN IV 11/01/16 06:45 12/01/16 06:44 Ondansetron HCl 4 mg 4 mg Q6H PRN IV 11/01/16 06:45 12/01/16 06:44 Promethazine HCl/ Sodium Chloride (Phenergan Inj/ Nss 50ml) 50.5 ml @ 204 mls/hr Q6H PRN IV 11/01/16 06:45 12/01/16 06:44 Amitriptyline HCl (Elavil Tab) 10 mg HS PO 11/01/16 21:00 12/01/16 20:59 Aspirin (Ecotrin Tab) 81 mg DAILY PO 11/01/16 09:00 12/01/16 08:59 11/01/16 09:25 81 MG Atorvastatin Calcium (Lipitor Tab) 40 mg DAILY PO 11/01/16 09:00 12/01/16 08:59 11/01/16 09:25 40 MG Baclofen (Lioresal Tab) 10 mg DAILY PO 11/01/16 09:00 12/01/16 08:59 11/01/16 09:25 10 MG Bupropion HCl (Wellbutrin-Xl Tab) 150 mg DAILY PO 11/01/16 09:00 12/01/16 08:59 11/01/16 09:25 150 MG Docusate Sodium (coLACE CAP) 100 mg BID PO 11/01/16 09:00 12/01/16 08:59 11/01/16 09:25 100 MG Fentanyl (Duragesic Patch) 50 mcg Q72H TD 11/01/16 09:00 11/15/16 08:59 11/01/16 09:33 50 MCG Salmeterol Xinafoate/ Fluticasone (Advair Diskus 500/50 Inh) 1 puff BID INH 11/01/16 09:00 12/01/16 08:59 11/01/16 09:25 1 PUFF Pantoprazole Sodium (Protonix Tab) 40 mg DAILY PO 11/01/16 09:00 12/01/16 08:59 11/01/16 09:25 40 MG Ropinirole HCl (Requip Tab) 1 mg DAILY@1300 PO 11/01/16 13:00 12/01/16 12:59 Ropinirole HCl (Requip Tab) 2 mg HS PO 11/01/16 21:00 12/01/16 20:59 Tiotropium [place] (Spiriva Handihaler Inhaler) 1 puff DAILY INH 11/01/16 09:00 12/01/16 08:59 11/01/16 09:25 1 PUFF Trazodone HCl (Desyrel Tab) 50 mg HS PO 11/01/16 21:00 12/01/16 20:59 Oxycodone/ Acetaminophen (Percocet 10-325MG Tab) pain not relieved by tyle... Q4H PRN PO 11/01/16 06:45 11/15/16 06:44 11/01/16 15:52 2 TAB Miscellaneous (Iv Fluids Completed) 1 ea PRN PRN N/A 11/01/16 06:45 11/01/17 06:44 Ipratropium [place] (Atrovent 0.02% 0.5MG/2.5ML Neb) 0.5 mg Q4H PRN INH 11/01/16 07:00 12/01/16 06:59 Levalbuterol (Xopenex 1.25MG/ 0.5ML Neb) 1.25 mg Q4H PRN INH 11/01/16 07:00 12/01/16 06:59 Miscellaneous (Fentanyl Patch Remove & Waste) 1 ea Q3D@0859 N/A 11/04/16 08:59 12/04/16 08:58 Miscellaneous Information (Check Fentanyl Patch Placement) 1 ea QS N/A 11/01/16 16:00 12/01/16 15:59 11/01/16 16:49 1 EA Montelukast Sodium (Singulair Tab) 10 mg HS PO 11/01/16 21:00 12/01/16 08:59 Objective Vital Signs Date Time Temp Pulse Resp B/P Pulse Ox O2 Delivery O2 Flow Rate FiO2 11/01/16 16:54 37.4 95 20 133/79 92 Room Air 11/01/16 16:07 37.2 101 24 150/113 95 Nasal Cannula 3.0 11/01/16 14:35 94 18 98/58 92 Room Air 11/01/16 14:20 37.6 95 20 111/76 94 Room Air 11/01/16 14:05 36.5 90 20 126/72 96 Nasal Cannula 3 11/01/16 13:55 36.5 93 20 120/70 96 Nasal Cannula 3 11/01/16 13:47 36.5 96 20 138/84 96 Nasal Cannula 3 11/01/16 07:53 37.0 95 18 129/68 92 Room Air 11/01/16 07:40 90 22 155/79 96 11/01/16 06:20 95 22 171/94 96 Room Air 11/01/16 05:38 96 20 114/80 96 11/01/16 04:15 95 16 114/80 98 11/01/16 03:39 92 11/01/16 03:21 36.8 97 20 122/103 95 Room Air Physical Exam General Appearance: + moderate distress (secondary to pain) Respiratory/Chest: lungs clear, normal breath sounds, no respiratory distress, no accessory muscle use Cardiovascular: regular rate, rhythm, no edema, no murmur Abdomen: + tenderness (left flank) Laboratory Results Last 24 Hours Test 11/01/16 02:55 11/01/16 04:30 11/01/16 07:10 11/01/16 11:08 White Blood Count 16.55 K/uL Red Blood Count 5.07 M/uL Hemoglobin 14.5 g/dL Hematocrit 44.2 % Mean Corpuscular Volume 87.2 fL Mean Corpuscular Hemoglobin 28.6 pg Mean Corpuscular Hemoglobin Concent 32.8 g/dl Platelet Count 178 K/uL Mean Platelet Volume 12.5 fL Neutrophils (%) (Auto) 87.4 % Lymphocytes (%) (Auto) 4.0 % Monocytes (%) (Auto) 8.0 % Eosinophils (%) (Auto) 0.2 % Basophils (%) (Auto) 0.2 % Neutrophils # (Auto) 14.45 K/uL Lymphocytes # (Auto) 0.67 K/uL Monocytes # (Auto) 1.32 K/uL Eosinophils # (Auto) 0.04 K/uL Basophils # (Auto) 0.03 K/uL RDW Standard Deviation 48.6 fL RDW Coefficient of Variation 15.3 % Immature Granulocyte % (Auto) 0.2 % Immature Granulocyte # (Auto) 0.04 K/uL Sodium Level 141 mmol/L Potassium Level 4.3 mmol/L Chloride Level 104 mmol/L Carbon Dioxide Level 29 mmol/L Anion Gap 8.0 mmol/L Blood Urea Nitrogen 15 mg/dl Creatinine 1.10 mg/dl Est Creatinine Clear Calc Drug Dose 57.7 ml/min Estimated GFR () 60.6 Estimated GFR (Non- 52.3 BUN/Creatinine Ratio 13.9 Random Glucose 188 mg/dl Estimated Average Glucose 154 mg/dl Hemoglobin A1c 7.0 % Calcium Level 8.6 mg/dl Magnesium Level 2.0 mg/dl Total Bilirubin 0.7 mg/dl Direct Bilirubin 0.1 mg/dl Aspartate Amino Transf (AST/SGOT) 21 U/L Alanine Aminotransferase (ALT/SGPT) 38 U/L Alkaline Phosphatase 92 U/L Total Protein 7.4 gm/dl Albumin 3.9 gm/dl Lipase 148 U/L Thyroid Stimulating Hormone (TSH) 1.940 uIu/ml Urine Color YELLOW Urine Appearance CLEAR Urine pH 8.0 Urine Specific [place] 1.026 Urine Protein NEG Urine Glucose (UA) TRACE Urine Ketones NEG Urine Occult Blood NEG Urine Nitrite NEG Urine Bilirubin NEG Urine Urobilinogen NEG Urine Leukocyte Esterase TRACE Urine WBC (Auto) 1-5 /hpf Urine RBC (Auto) 0-4 /hpf Urine Hyaline Casts (Auto) 0 /lpf Urine Epithelial Cells (Auto) >30 /lpf Urine Bacteria (Auto) NEG Prothrombin Time 10.3 SECONDS Prothromb Time International Ratio 1.0 Activated Partial Thromboplast Time 24.5 SECONDS Partial Thromboplastin Ratio 0.9 Bedside Glucose 182 mg/dl Test 11/01/16 16:17 Bedside Glucose 153 mg/dl Assessment and Plan This is a 66 year old female with PMH of COPD on home O2, chronic narcotic use secondary to pain, DM2, obesity, depression/anxiety presents with left sided kidney stone Left Side Nephrolithiasis patient presented with kidney stone s/p stent as per urology appreciate their input will continue flomax patient was to be discharged home today, but she is in too much pain give an extra dose of IV Toradol, continue with percocet PRN Dilaudid PRN if above measures do not work COPD no exacerbation, no shortness of breath continue O2 continuously continue Spiriva, and home inhalers Chronic Pain continue home medications fentanyl patch and other home medications should have outpatient pain management consult Depression/Anxiety continue home medications DVT ppx Lovenox FULL CODE d/c home in AM (11/02)
[2016-11-01] MEDS ORDERED: AMITRIPTYLINE HCL 10 MG TAB PO SCH (21:00)
[2016-11-01] MEDS ORDERED: MONTELUKAST SOD 10 MG TAB PO SCH (21:00)
[2016-11-01] MEDS ORDERED: TRAZODONE HCL 50 MG TAB PO SCH (21:00)
[2016-11-01] MEDS: ONDANSETRON INJ 2 MG/ML 2 ML VIAL IV PRN (21:44)
[2016-11-02] MEDS: CHECK FENTANYL PATCH PLACEMENT SCH ×2 (00:01→08:00)
[2016-11-02] MEDS: ONDANSETRON INJ 2 MG/ML 2 ML VIAL IV PRN ×2 (05:51→11:22)
[2016-11-02 07:40] LABS: BASO % 0.2 %; BASO ABS # 0.02 K/uL (0-0.2); COMPLETE YES; HEMATOCRIT 34.7 % (37-47); IG% 0.1 %; LYMPH % 7.8 %; LYMPH ABS # 0.66 K/uL (1.2-3.4); MEAN CELL VOLUME 86.8 fL (80-100); MEAN CORPUSCULAR HEMOGLOBIN 27.8 pg (25-34); MEAN PLATELET VOLUME 11.9 fL (7.4-10.4); NEUT % 79.9 %; PLATELET COUNT 128 K/uL (130-400); WHITE BLOOD COUNT 8.42 K/uL (4.8-10.8)
[2016-11-02 07:41] LABS: CALCIUM 7.9 mg/dl (8.5-10.1); CREATININE 1.3 mg/dl (0.60-1.20); POTASSIUM 3.9 mmol/L (3.5-5.1)
[2016-11-02] MEDS ORDERED: NURSING VERBAL MED ORDER ONE (08:15)
[2016-11-02 08:23] VITALS: BP 131/84; PULSE 82; TEMP 36.7; O2SAT 95
[2016-11-02] MEDS ORDERED: PROMETHAZINE HCL INJ 12.5 MG in SODIUM CHLORIDE 0.9% 50ML 50 ML IV ONE (08:30)
[2016-11-02] MEDS: BACLOFEN 10 MG TAB PO SCH (08:54)
[2016-11-02] MEDS: ASPIRIN 81 MG ECTAB PO SCH (08:54)
[2016-11-02] MEDS: FLUTICASONE/SALMETEROL (ADVAIR) 500/50 INH 14 PUFF INH SCH (08:54)
[2016-11-02] MEDS: PANTOprazole SOD 40 MG TAB PO SCH (08:54)
[2016-11-02] MEDS: ATORVASTATIN 40 MG TAB PO SCH (08:55)
[2016-11-02] MEDS: TIOTROPIUM BROMIDE 5 PUFF/90 MCG INH INH SCH (08:55)
[2016-11-02] MEDS: BuPROPion XL 150 MG TABCR PO SCH (08:55)
[2016-11-02] MEDS: DOCUSATE SODIUM 100 MG CAP PO SCH (08:55)
[2016-11-02] MEDS ORDERED: TAMSULOSIN HCL 0.4 MG CAP PO SCH (09:00)
[2016-11-02] MEDS: INSULIN ASPART 100 UNITS/ML 3 ML PEN SC SCH ×2 (09:03→11:00)
[2016-11-02] MEDS: ENOXAPARIN 40 MG/0.4 ML SYR SQ SCH (09:34)
--- NOTE | 2016-11-02 10:44 | Progress Note ---
Subjective Date of Service: Nov 02, 2016. Subjective Pt evaluation today including: conversation w/ patient, physical exam, lab review, review of studies, review of inpatient medication list Saw/examined the patient in room 253 She is doing well, pain subsided +nausea, which is a chronic issue Eager to get home Problem List Medical Problems: (1) Back pain Status: Acute (2) Contusion of left chest wall Status: Acute (3) Cough Status: Acute (4) Kidney stone Status: Acute Review of Systems Constitutional: No chills, No fever, No weakness Cardiac: No chest pain, No edema, No palpitations Abdomen: + nausea, No GI bleeding, No constipation, No diarrhea, No pain (pain subsided), No vomiting Heme: No abnormal bleeding/bruising Medications Current Inpatient Medications Medications (Trade) Dose Ordered Sig/Christiana Route Start Time Stop Time Status Last Admin Dose Admin Tamsulosin HCl (Flomax Cap) 0.4 mg QAM PO 11/02/16 09:00 12/02/16 08:59 11/02/16 08:54 0.4 MG Enoxaparin Sodium (Lovenox Inj) 40 mg DAILY@0900 SQ 11/01/16 09:00 12/01/16 08:59 11/02/16 09:34 40 MG Acetaminophen (Tylenol Tab) 650 mg Q4H PRN PO 11/01/16 06:45 12/01/16 06:44 Insulin Aspart (novoLOG ASPART) SLIDING SCALE If C... ACHS SC 11/01/16 11:00 12/01/16 10:59 Glucose (Glucose 40% Gel) 15-30 GRAMS 15 GRAMS... UD PRN PO 11/01/16 06:45 12/01/16 06:44 Glucose (Glucose Chew Tab) 4-8 Tablets 4 Tabl... UD PRN PO 11/01/16 06:45 12/01/16 06:44 Dextrose (Dextrose 50% 50ML Syringe) 25-50ML OF 50% DW IV FOR... UD PRN IV 11/01/16 06:45 12/01/16 06:44 Glucagon (Glucagon Inj) 1 mg UD PRN SQ 11/01/16 06:45 12/01/16 06:44 Hydromorphone HCl (Dilaudid Inj) 0.5 mg Q3H PRN IV 11/01/16 06:45 11/15/16 06:44 Lorazepam (Ativan Inj) 0.5 mg Q4H PRN IV 11/01/16 06:45 12/01/16 06:44 Ondansetron HCl 4 mg 4 mg Q6H PRN IV 11/01/16 06:45 12/01/16 06:44 11/02/16 05:51 4 MG Promethazine HCl/ Sodium Chloride (Phenergan Inj/ Nss 50ml) 50.5 ml @ 204 mls/hr Q6H PRN IV 11/01/16 06:45 12/01/16 06:44 Amitriptyline HCl (Elavil Tab) 10 mg HS PO 11/01/16 21:00 12/01/16 20:59 11/01/16 21:47 10 MG Aspirin (Ecotrin Tab) 81 mg DAILY PO 11/01/16 09:00 12/01/16 08:59 11/02/16 08:54 81 MG Atorvastatin Calcium (Lipitor Tab) 40 mg DAILY PO 11/01/16 09:00 12/01/16 08:59 11/02/16 08:55 40 MG Baclofen (Lioresal Tab) 10 mg DAILY PO 11/01/16 09:00 12/01/16 08:59 11/02/16 08:54 10 MG Bupropion HCl (Wellbutrin-Xl Tab) 150 mg DAILY PO 11/01/16 09:00 12/01/16 08:59 11/02/16 08:55 150 MG Docusate Sodium (coLACE CAP) 100 mg BID PO 11/01/16 09:00 12/01/16 08:59 11/02/16 08:55 100 MG Fentanyl (Duragesic Patch) 50 mcg Q72H TD 11/01/16 09:00 11/15/16 08:59 11/01/16 09:33 50 MCG Salmeterol Xinafoate/ Fluticasone (Advair Diskus 500/50 Inh) 1 puff BID INH 11/01/16 09:00 12/01/16 08:59 11/02/16 08:54 1 PUFF Pantoprazole Sodium (Protonix Tab) 40 mg DAILY PO 11/01/16 09:00 12/01/16 08:59 11/02/16 08:54 40 MG Ropinirole HCl (Requip Tab) 1 mg DAILY@1300 PO 11/01/16 13:00 12/01/16 12:59 Ropinirole HCl (Requip Tab) 2 mg HS PO 11/01/16 21:00 12/01/16 20:59 11/01/16 21:46 2 MG Tiotropium [place] (Spiriva Handihaler Inhaler) 1 puff DAILY INH 11/01/16 09:00 12/01/16 08:59 11/02/16 08:55 1 PUFF Trazodone HCl (Desyrel Tab) 50 mg HS PO 11/01/16 21:00 12/01/16 20:59 11/01/16 21:47 50 MG Oxycodone/ Acetaminophen (Percocet 10-325MG Tab) pain not relieved by tyle... Q4H PRN PO 11/01/16 06:45 11/15/16 06:44 11/01/16 15:52 2 TAB Miscellaneous (Iv Fluids Completed) 1 ea PRN PRN N/A 11/01/16 06:45 11/01/17 06:44 Ipratropium [place] (Atrovent 0.02% 0.5MG/2.5ML Neb) 0.5 mg Q4H PRN INH 11/01/16 07:00 12/01/16 06:59 Levalbuterol (Xopenex 1.25MG/ 0.5ML Neb) 1.25 mg Q4H PRN INH 11/01/16 07:00 12/01/16 06:59 Miscellaneous (Fentanyl Patch Remove & Waste) 1 ea Q3D@0859 N/A 11/04/16 08:59 12/04/16 08:58 Miscellaneous Information (Check Fentanyl Patch Placement) 1 ea QS N/A 11/01/16 16:00 12/01/16 15:59 11/02/16 08:00 1 EA Montelukast Sodium (Singulair Tab) 10 mg HS PO 11/01/16 21:00 12/01/16 08:59 11/01/16 21:48 10 MG Objective Vital Signs Date Time Temp Pulse Resp B/P Pulse Ox O2 Delivery O2 Flow Rate FiO2 11/02/16 08:23 36.7 82 20 131/84 95 11/02/16 07:45 Nasal Cannula 2.0 11/01/16 23:55 Nasal Cannula 2.0 11/01/16 23:12 36.8 87 16 107/70 94 Nasal Cannula 2.0 11/01/16 19:41 Room Air 11/01/16 17:57 37.0 100 18 106/68 90 Room Air 11/01/16 16:54 37.4 95 20 133/79 92 Room Air 11/01/16 16:45 37.4 95 20 133/79 92 Room Air 11/01/16 16:07 37.2 101 24 150/113 95 Room Air 11/01/16 16:07 37.2 101 24 150/113 95 Nasal Cannula 3.0 11/01/16 14:35 94 18 98/58 92 Room Air 11/01/16 14:20 37.6 95 20 111/76 94 Room Air 11/01/16 14:05 36.5 90 20 126/72 96 Nasal Cannula 3 11/01/16 13:55 36.5 93 20 120/70 96 Nasal Cannula 3 11/01/16 13:47 36.5 96 20 138/84 96 Nasal Cannula 3 Physical Exam General Appearance: no apparent distress, + obese Respiratory/Chest: no respiratory distress, no accessory muscle use, + wheezing (mild end expiratory wheezing) Cardiovascular: regular rate, rhythm, no edema, no murmur Abdomen: normal bowel sounds, non tender, soft Extremities: normal inspection, no pedal edema Laboratory Results Last 24 Hours Test 11/01/16 11:08 11/01/16 16:17 11/01/16 19:56 11/02/16 06:40 Bedside Glucose 182 mg/dl 153 mg/dl 153 mg/dl White Blood Count 8.42 K/uL Red Blood Count 4.00 M/uL Hemoglobin 11.1 g/dL Hematocrit 34.7 % Mean Corpuscular Volume 86.8 fL Mean Corpuscular Hemoglobin 27.8 pg Mean Corpuscular Hemoglobin Concent 32.0 g/dl Platelet Count 128 K/uL Mean Platelet Volume 11.9 fL Neutrophils (%) (Auto) 79.9 % Lymphocytes (%) (Auto) 7.8 % Monocytes (%) (Auto) 11.0 % Eosinophils (%) (Auto) 1.0 % Basophils (%) (Auto) 0.2 % Neutrophils # (Auto) 6.72 K/uL Lymphocytes # (Auto) 0.66 K/uL Monocytes # (Auto) 0.93 K/uL Eosinophils # (Auto) 0.08 K/uL Basophils # (Auto) 0.02 K/uL RDW Standard Deviation 52.4 fL RDW Coefficient of Variation 16.2 % Immature Granulocyte % (Auto) 0.1 % Immature Granulocyte # (Auto) 0.01 K/uL Sodium Level 135 mmol/L Potassium Level 3.9 mmol/L Chloride Level 101 mmol/L Carbon Dioxide Level 27 mmol/L Anion Gap 7.0 mmol/L Blood Urea Nitrogen 26 mg/dl Creatinine 1.30 mg/dl Est Creatinine Clear Calc Drug Dose 49.0 ml/min Estimated GFR () 49.5 Estimated GFR (Non- 42.7 BUN/Creatinine Ratio 20.0 Random Glucose 156 mg/dl Calcium Level 7.9 mg/dl Test 11/02/16 07:25 Bedside Glucose 150 mg/dl Assessment and Plan This is a 66 year old female with PMH of COPD on home O2, chronic narcotic use secondary to pain, DM2, obesity, depression/anxiety presents with left sided kidney stone Left Side Nephrolithiasis 11/02 pain has subsided will d/c patient home today Flomax to be discharged home pain medications for pain will prescribe Zofran for nausea outpatient f/u with Dr. Torres on 11/10 @ 8:50AM outpatient urology follow-up 11/01 patient presented with kidney stone s/p stent as per urology appreciate their input will continue flomax patient was to be discharged home today, but she is in too much pain give an extra dose of IV Toradol, continue with percocet PRN Dilaudid PRN if above measures do not work COPD no exacerbation, no shortness of breath continue O2 continuously continue Spiriva, and home inhalers Chronic Pain continue home medications fentanyl patch and other home medications should have outpatient pain management consult Depression/Anxiety continue home medications DVT ppx Lovenox FULL CODE d/c home in AM (11/02)
[2016-11-02] MEDS ORDERED: ONDA4TAB46 PO (10:50)
[2016-11-02] MEDS ORDERED: FLM4 PO (10:50)
--- NOTE | 2016-11-02 11:00 | Discharge Instructions ---
Discharge Instructions Date of Service Nov 02, 2016. Admission Reason for Admission: Renal Colic Discharge Discharge Diagnosis / Problem: Left Renal Colic; nephrolithiasis Discharge Goals Goal(s): Decrease discomfort, Improve function, Diagnostic testing, Therapeutic intervention Activity Recommendations Activity Limitations: resume your previous activity . Instructions / Follow-Up Instructions / Follow-Up Please follow-up with Dr. Torres on November 10 @ 8:50AM * Will prescribe Flomax - to use daily * Outpatient urology follow-up for outpatient surgery Current Hospital Diet Patient's current hospital diet: AHA Diet (Heart Healthy), Diabetes Type 2 Diet Discharge Diet Recommended Diet: AHA Diet (Heart Healthy), Diabetes Type 2 Diet Procedures Procedures Performed: Cystscopy with left ureteral stent insertion Pending Studies Studies pending at discharge: no Laboratory Results Hemoglobin A1c Test 11/01/16 02:55 Range/Units Estimated Average Glucose 154 mg/dl Hemoglobin A1c 7.0 H 4.5-5.6 % Medical Emergencies . Who to Call and When: Medical Emergencies: If at any time you feel your situation is an emergency, please call 911 immediately. . Non-Emergent Contact Non-Emergency issues call your: Primary Care Provider, Urologist . . "Provider Documentation" section prepared by [employer]. VTE Core Measure Inpt VTE Proph given/why not?: Enoxaparin (Lovenox)SQ
--- NOTE | 2016-11-02 11:03 | Discharge Summary ---
Discharge Summary Date of Service Nov 02, 2016. Discharge Summary Admission Date: Nov 01, 2016 at 06:16 Discharge Date: Nov 02, 2016 Discharge Disposition: Home Principal Diagnosis: Left Renal Colic/Nephrolithiasis Medication Reconciliation New Medications: Tamsulosin HCl (Tamsulosin HCl) 0.4 Mg Cap 0.4 MG PO QAM for 30 Days, #30 CAP Continued Medications: Alendronate Sodium (Alendronate Sodium) 70 Mg Tab 70 MG PO WK Amitriptyline Hcl (Elavil) 10 Mg Tab 10 MG PO HS Ascorbic Acid (Ascorbic Acid) 500 Mg Tab 500 MG PO DAILY, TAB Aspirin (Aspirin Chewable) 81 Mg Chew 81 MG PO DAILY Atorvastatin (Lipitor) 40 Mg Tab 40 MG PO DAILY Baclofen (Lioresal) 10 Mg Tab 10 MG PO DAILY, TAB Bupropion Hcl (Wellbutrin Xl) 150 Mg Tab 150 MG PO DAILY Docusate Sodium (Docusate Sodium) 100 Mg Cap 100 MG PO BID, CAP Fentanyl (Fentanyl) 50 Mcg Tdsy 1 PATCH TOP CQ72HR Fluticasone Prop/Salmeterol (Advair Diskus 500-50 Mcg/Dose) 14 Puff/1 Inhaler Aerp 1 PUFF INH BID Furosemide (Lasix) 20 Mg Tab 20 MG PO DAILY Ipratropium-Albuterol (Combivent Respimat) 1 Aer Aer 1 PUFF INH QID PRN for SOB/Wheezing Ipratropium-Albuterol (Duoneb) 3 Ml Nebu 3 ML NEB QID PRN for Shortness of Breath Lactic Acid (Ammonium Lactate) (Amlactin) 12 % Lot 1 APPLN TD DAILY APPLY TO DRY AREAS ON FEET DAILY Montelukast Sodium (Singulair) 10 Mg Tab 10 MG PO DAILY Ondansetron Hcl (Zofran) 4 Mg Tab 4 MG PO DAILY PRN for Nausea for 10 Days, #10 TAB (This prescription has been renewed) Oxycodone/Acetaminophen 10MG/325MG (Percocet 10MG/325MG) Tab 1 TAB PO Q4H PRN for Pain Pantoprazole (Protonix) 40 Mg Tab 40 MG PO DAILY, 0 Refills Potassium Ext Rel (Klor-Con) 10 Meq Tabcr 10 MEQ PO BID Ropinirole (Requip) 1 Mg Tab 1 MG PO Q AFTERNOON, TAB Ropinirole (Requip) 2 Mg Tab 2 MG PO HS, TAB Tiotropium [place] (Spiriva Handihaler) 18 Mcg/ Aerp 1 CAP INH DAILY, 0 Refills Trazodone Hcl (Trazodone) 50 Mg Tab 50 MG PO HS, TAB Admission Information Physical Exam (per Admitting): DATE OF ADMISSION: 11/01/2016 PRIMARY CARE DOCTOR: Dr. Torres. Hx obtained from px and records. CHIEF COMPLAINT: Left flank pain. HISTORY OF PRESENT ILLNESS: Medical history significant for chronic respiratory failure secondary to COPD on home O2, past tobacco abuse, chronic pain on narcotics, DM2 diet controlled, mood/ anxiety disorder, urolithiasis. Recent confinement last April 2015 for COPD exacerbation. Ffw days history of achy left flank pain similar to kidney stone pain. No fever, no chills, no hematuria. Intractable pain in the Emergency Room. MEDICAL HISTORY: As above. SURGERIES: She has had urologic procedures, cataract surgery, tonsillectomy, breast punch biopsy, tonsillectomy. HOME MEDICATIONS: Include Klor-Con, Requip, Spiriva, trazodone, DuoNeb, Singulair, Zofran, Percocet, Protonix, docusate sodium, Lasix, fentanyl patch, Advair Diskus, Combivent, Elavil, ascorbic acid, aspirin chewable, alendronate, Lipitor, Wellbutrin. ALLERGIES: MORPHINE, TRAMADOL, NSAIDs. FAMILY HISTORY: Hypertension. PERSONAL AND SOCIAL HISTORY: past tobacco abuse. denies chronic ETOH intake. 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 REVIEW OF SYSTEMS: As per HPI, all other ROS negative. PHYSICAL EXAMINATION: VITAL SIGNS: Blood pressure was noted to be 122/70, pulse rate 97, RR 21, T 37 O2sats 95 on room air. GENERAL: Noted to be uncomfortable, obese, looks older for stated age, no resp distress. SKIN: Normal color. HEENT: [place] palpebral conjunctivae. Dry mucosa. NECK: Short neck. LUNGS: Decreased breath sounds. Occasional wheeze. HEART: Regular rate and rhythm. ABDOMEN: Soft. BCAK : No flank pain. EXTREMITIES: No edema. No tenderness. NEUROLOGIC: No gross focality. LABS: Hemoglobin was noted to be 14.5, white cell count 16.5, platelets 178. Sodium 141, potassium 4, chloride 104, CO2 of 29, BUN 50, creatinine 1, glucose 188 Hemoglobin A1c from [address] of the abdomen and pelvis initial read showed 6.5 mm calculus at left UPJ with moderate left hydronephrosis, perinephric stranding. Correlate clinically for superimposed infection; no enlarged spleen. UA, trace WBC esterase. ASSESSMENT: 1. Renal colic, L hx recurrent urolithiasis No sepsis for now. 2. Hypertension, stable. 3. Chronic resp failure 2 to COPD on home O2 pulmo status at baseline 4. past tobacco abuse 5. chronic pain on narcotics 6. DM2, diet controlled well controlled as of recent outpx HgA1c. PLAN: Observation GMF Flomax trial, analgesia, IVF, strain urine low threshold for initiating antibiotic rx if w/ fever spike Urology consult L renal colic (px known to Dr. Elizalde) ISS BG goal 140-180, px due for hemoglobin A1c recheck DVT prophylaxis, Lovenox subQ. Full code. Hospital Course This is a 66 year old female with PMH of COPD on home O2, chronic narcotic use secondary to pain, DM2, obesity, depression/anxiety presents with left sided kidney stone Left Side Nephrolithiasis 11/02 pain has subsided will d/c patient home today Flomax to be discharged home pain medications for pain will prescribe Zofran for nausea outpatient f/u with Dr. Torres on 11/10 @ 8:50AM outpatient urology follow-up 11/01 patient presented with kidney stone s/p stent as per urology appreciate their input will continue flomax patient was to be discharged home today, but she is in too much pain give an extra dose of IV Toradol, continue with percocet PRN Dilaudid PRN if above measures do not work COPD no exacerbation, no shortness of breath continue O2 continuously continue Spiriva, and home inhalers Chronic Pain continue home medications fentanyl patch and other home medications should have outpatient pain management consult Depression/Anxiety continue home medications DVT ppx Lovenox FULL CODE d/c home in AM (11/02) Total time spent on discharge = 25 minutes This includes examination of the patient, discharge planning, medication reconciliation, and communication with other providers. Discharge Instructions Please follow-up with Dr. Torres on November 10 @ 8:50AM * Will prescribe Flomax - to use daily * Outpatient urology follow-up for outpatient surgery
[2016-11-02 12:41] VITALS: BP 131/84; PULSE 82; TEMP 36.7; O2SAT 95
[2016-11-04] MEDS ORDERED: FENTANYL PATCH REMOVE & WASTE SCH (08:59)
[2016-11-12] MEDS ORDERED: LCHC12280 TOP (11:46)
[2016-11-12] MEDS ORDERED: ALBINS/ INH (11:46)
[2016-11-12] MEDS ORDERED: LEVO1TAB35 PO (11:51)
[2016-11-12] MEDS ORDERED: OXGN (11:51)
[2016-11-12] MEDS ORDERED: NTRGSL/4 UT (11:51)
[2016-11-12] MEDS ORDERED: PRED10TA PO (11:51)
[2016-11-12] MEDS ORDERED: FLM4 PO (11:52)
[2016-11-19] MEDS ORDERED: OXYC-57 PO (09:26)
[2016-11-19] MEDS ORDERED: NITR1CAP16 PO (09:26)
[2016-11-19] MEDS ORDERED: FLM4 PO (09:26)
[2017-06-27] MEDS ORDERED: GENT0.3S6 OPB (02:57)
== END 2016-11-02 13:00 | disposition home or self-care (01) ==
LOC: ENRESERVTM → ENRESERVDT → EDBD 03:17 → C.EDB 03:18 → C.MS2W 06:16
PROVIDERS: ADMIT Family Medicine; ATTEND Family Medicine
DX: N23 Unspecified renal colic (principal); N20.0 Calculus of kidney; I10 Essential (primary) hypertension; E78.5 Hyperlipidemia, unspecified; K21.9 Gastro-esophageal reflux disease without esophagitis; J45.909 Unspecified asthma, uncomplicated; J44.9 Chronic obstructive pulmonary disease, unspecified; F32.9 Major depressive disorder, single episode, unspecified; E11.9 Type 2 diabetes mellitus without complications; E66.01 Morbid (severe) obesity due to excess calories; Z68.42 Body mass index [BMI] 45.0-49.9, adult; Z88.5 Allergy status to narcotic agent; Z79.82 Long term (current) use of aspirin; Z79.899 Other long term (current) drug therapy; Z90.89 Acquired absence of other organs; Z98.49 Cataract extraction status, unspecified eye; Z98.890 Other specified postprocedural states; Z86.718 Personal history of other venous thrombosis and embolism; Z87.891 Personal history of nicotine dependence; Z82.49 Family history of ischemic heart disease and other diseases of the circulatory system

== ENCOUNTER 2016-11-19 05:12 | Day surgery (SDC) | payer OTHER ==
[2016-11-12 11:54] VITALS: BMI 46.0
--- NOTE | 2016-11-12 12:36 | PAT Medication Instructions ---
Service Date Nov 12, 2016. Current Home Medication List Albuterol Sulf (Proventil 0.083% 2.5MG/3ML), 2.5 MG INH QID PRN for PRN Alendronate Sodium (Alendronate Sodium), 70 MG PO WK Amitriptyline Hcl (Elavil), 10 MG PO HS Aspirin (Aspirin Chewable), 81 MG PO QAM Atorvastatin (Lipitor), 40 MG PO QAM Baclofen (Lioresal), 10 MG PO BID Bupropion Hcl (Wellbutrin Xl), 150 MG PO QAM Docusate Sodium (Docusate Sodium), 100 MG PO BID PRN for PRN Fentanyl (Fentanyl), 1 PATCH TOP CQ72HR Fluticasone Prop/Salmeterol (Advair Diskus 500-50 Mcg/Dose), 1 PUFF INH BID Furosemide (Lasix), 20 MG PO QAM Ipratropium-Albuterol (Combivent Respimat), 1 PUFF INH QID PRN for SOB/Wheezing Lactic Acid (Ammonium Lactate Cream 12%), 1 DOSE TOP DAILY Levofloxacin (Levaquin), 750 MG PO UD PRN for RN Montelukast Sodium (Singulair), 10 MG PO QAM Nitroglycerin (Nitrostat), 0.4 MG UT PRN Ondansetron Hcl (Zofran), 4 MG PO DAILY PRN for Nausea Oxycodone/Acetaminophen 10MG/325MG (Percocet 10MG/325MG), 1 TAB PO Q8H PRN for Pain Oxygen (Oxygen), 2.5 LITERS NA HS Pantoprazole (Protonix), 40 MG PO BID Potassium Ext Rel (Klor-Con), 10 MEQ PO BID Prednisone Tab (Prednisone), 10 MG PO UD PRN for RN Ropinirole (Requip), 1 MG PO HS Tamsulosin HCl (Tamsulosin HCl), 0.4 MG PO QAM Tiotropium [place] (Spiriva Handihaler), 1 CAP INH QAM Medication Instructions For Your Scheduled Surgery - Check surgeon/family doctor for instructions: Aspirin (Aspirin Chewable), 81 MG PO QAM - Continue as directed Fentanyl (Fentanyl), 1 PATCH TOP CQ72HR (avoid placing at surgical site) Alendronate Sodium (Alendronate Sodium), 70 MG PO WK (check if okay with family doctor) - Hold the following medications the morning of surgery: Tamsulosin HCl (Tamsulosin HCl), 0.4 MG PO QAM Potassium Ext Rel (Klor-Con), 10 MEQ PO BID Montelukast Sodium (Singulair), 10 MG PO QAM Lactic Acid (Ammonium Lactate Cream 12%), 1 DOSE TOP DAILY Furosemide (Lasix), 20 MG PO QAM Docusate Sodium (Docusate Sodium), 100 MG PO BID PRN for PRN Baclofen (Lioresal), 10 MG PO BID - Take the following medications the morning of surgery with a sip of water: Tiotropium [place] (Spiriva Handihaler), 1 CAP INH QAM Prednisone Tab (Prednisone), 10 MG PO UD PRN for RN (rescue kit)-- if needed Levofloxacin (Levaquin), 750 MG PO UD PRN for RN (rescue kit)-- if needed Pantoprazole (Protonix), 40 MG PO BID Ondansetron Hcl (Zofran), 4 MG PO DAILY PRN for Nausea Nitroglycerin (Nitrostat), 0.4 MG UT PRN Ipratropium-Albuterol (Combivent Respimat), 1 PUFF INH QID PRN for SOB/Wheezing Fluticasone Prop/Salmeterol (Advair Diskus 500-50 Mcg/Dose), 1 PUFF INH BID Bupropion Hcl (Wellbutrin Xl), 150 MG PO QAM Atorvastatin (Lipitor), 40 MG PO QAM Albuterol Sulf (Proventil 0.083% 2.5MG/3ML), 2.5 MG INH QID PRN for PRN (bring with you to hospital morning of surgery) Oxycodone/Acetaminophen 10MG/325MG (Percocet 10MG/325MG), 1 TAB PO Q8H PRN for Pain (okay to take up to 4 hours prior to surgery if needed) - Hold the following medications as scheduled the night before surgery: Ropinirole (Requip), 1 MG PO HS - Take the following medications as scheduled the night before surgery: Prednisone Tab (Prednisone), 10 MG PO UD PRN for RN (rescue kit)-- if needed Levofloxacin (Levaquin), 750 MG PO UD PRN for RN (rescue kit)-- if needed Potassium Ext Rel (Klor-Con), 10 MEQ PO BID Pantoprazole (Protonix), 40 MG PO BID Oxygen (Oxygen), 2.5 LITERS NA HS Ondansetron Hcl (Zofran), 4 MG PO DAILY PRN for Nausea Nitroglycerin (Nitrostat), 0.4 MG UT PRN Ipratropium-Albuterol (Combivent Respimat), 1 PUFF INH QID PRN for SOB/Wheezing Fluticasone Prop/Salmeterol (Advair Diskus 500-50 Mcg/Dose), 1 PUFF INH BID Docusate Sodium (Docusate Sodium), 100 MG PO BID PRN for PRN Baclofen (Lioresal), 10 MG PO BID Amitriptyline Hcl (Elavil), 10 MG PO HS Albuterol Sulf (Proventil 0.083% 2.5MG/3ML), 2.5 MG INH QID PRN for PRN Oxycodone/Acetaminophen 10MG/325MG (Percocet 10MG/325MG), 1 TAB PO Q8H PRN for Pain If you have any questions please call us at [phone] (Kisha Biggs PA-C) or [phone] or [phone]
--- NOTE | 2016-11-12 13:44 | DIAGNOSTIC IMAGING REPORT ---
TWO VIEW CHEST CLINICAL HISTORY: Preoperative examination. FINDINGS: PA and lateral chest radiographs are compared to study dated 06/16/2016 and correlated with chest CT dated 01/27/2015. The examination is degraded by large body habitus. The heart is mildly enlarged and there is atherosclerotic calcification of the thoracic aorta. The pulmonary vasculature is noncongested. Chronic interstitial thickening is unchanged. The lungs and pleural spaces are clear. There is no pneumothorax. The skeletal structures are osteopenic. Degenerative change is noted throughout the thoracic spine. IMPRESSION: Mild cardiac enlargement with no active disease in the chest. Electronically signed by: John Foster M.D. 11/12/2016 1:43 PM Dictated Date/Time: 11/12/2016 1:42 PM
[~2016-11-19] VITALS: Ht 154.9 cm; Wt 109.9 kg
[~2016-11-19 05:12] MED LIST changes: +ALBINS/ INH; -ALBU1NEB10 INH; +BACL10TA PO; +DOCU100C31 PO; -FEXO1TAB46 PO; +FLM4 PO; -FLX10 PO; -IPRASOL4 NEB; +LCHC12280 TOP; +LEVO1TAB35 PO; -LORA10TA5 PO; +OXGN; -ROPI0.5T15 PO; +ROPI1TAB PO
[2016-11-19 05:43] VITALS: BP 168/81; PULSE 90; TEMP 36.9; O2SAT 95; Ht 154.9 cm; Wt 109.9 kg
[2016-11-19] MEDS ORDERED: CEFAZOLIN 2000 MG/60 ML D5W IV SCH (06:00)
[2016-11-19] MEDS ORDERED: LACTATED RINGER'S 1000ML 1,000 ML IV SCH (06:00)
[2016-11-19] MEDS ORDERED: ROCURONIUM BROMIDE 10 MG/ML 5 ML VIAL ONE (06:48)
[2016-11-19] MEDS ORDERED: ONDANSETRON INJ 2 MG/ML 2 ML VIAL ONE (06:48)
[2016-11-19] MEDS ORDERED: PROPOFOL IV EMULSION 10 MG/ML 20 ML VIAL IV ONE (06:48)
[2016-11-19] MEDS ORDERED: FENTANYL CITRATE INJ 50 MCG/1 ML 2 ML VIAL ONE (06:48)
[2016-11-19] MEDS ORDERED: SUCCINYLCHOLINE CHLORIDE 20 MG/ML 10 ML VIAL IV ONE (06:48)
[2016-11-19] MEDS ORDERED: DEXAMETHASONE SOD INJ 4 MG/ML VIAL ONE (06:48)
[2016-11-19] MEDS ORDERED: LIDOCAINE HCL 2% 2 ML VIAL (20MG/ML) ONE (06:48)
--- NOTE | 2016-11-19 07:08 | History and Physical ---
History Date of Service: Nov 19, 2016. Chief Complaint: left ureteral and kidney stones Primary Care Physician: Mariano Torres D.O. Pt seen a urologist before?: Yes History of Present Illness Patient presents for treatment of her left kidney stones. She was urgently stented mid October. She will have stone laser litho today. Imaging CT Laboratory Labs were reviewed and are within normal limits unless listed below. Labs are available in the chart and at [facility] Problem List Medical Problems: (1) Back pain Status: Acute (2) Contusion of left chest wall Status: Acute (3) Cough Status: Acute (4) Kidney stone Status: Acute Past History Past Medical History: anxiety, asthma, COPD, diabetes, GERD, hypertension Pt had a problem w anesthesia?: No Past Surgical History: other Family History High cholesterol Hypertension Social History Hx Tobacco Use In Past Year?: No (SMOKED 1 PPD X 50 YRS-QUIT 2013) Smoking: quit greater than 1 year Alcohol: socially Drug use: none Marital status: Housing status: lives with family Occupation status: retired Immunizations History of Influenza Vaccine: No Influenza Vaccine Date: Jun 15, 2012 History of Tetanus Vaccine?: Yes Tetanus Immunization Date: Feb 23, 2011 History of Pneumococcal: Yes Pneumococcal Date: Aug 07, 2005 History of Hepatitis B Vaccine: No History of MDRO No Allergies Coded Allergies: Aspirin (Verified Allergy, Unknown, Patient can take upto 81 mg of ASA not any higher- hives, 11/19/16) NSAIDs (Verified Allergy, Unknown, hives, 11/19/16) Tramadol (Verified Adverse Reaction, Intermediate, URINARY RETENTION, ) Morphine (Verified Adverse Reaction, Mild, HALLUCINATIONS-PT DENIES, ) Medications Home Medications: Home Meds and Scripts Medications Dose Route/Sig Max Daily Dose Days Date Category Dose Instructions Tamsulosin HCl 0.4 Mg Cap 0.4 Mg PO QAM 11/12/16 Reported Oxygen Gas 2.5 Liters NA HS 11/12/16 Reported Nitrostat (Nitroglycerin) 0.4 Mg Tab 0.4 Mg UT PRN 11/12/16 Reported Prednisone 10 Mg Tab 10 Mg PO UD PRN 11/12/16 Reported RESCUE KIT Levaquin (Levofloxacin) 750 Mg Tab 750 Mg PO UD PRN 11/12/16 Reported RESCUE KIT Proventil 0.083% 2.5MG/3ML (Albuterol Sulf) 2.5 Mg/3 Ml Nebu 2.5 Mg INH QID PRN 11/12/16 Reported Ammonium Lactate Cream 12% (Lactic Acid) 280 Gm Cr 1 Dose TOP DAILY 11/12/16 Reported Zofran (Ondansetron HCl) 4 Mg Tab 4 Mg PO DAILY PRN 10 11/02/16 Rx Lioresal (Baclofen) 10 Mg Tab 10 Mg PO BID 11/01/16 Reported Requip (Ropinirole HCl) 1 Mg Tab 1 Mg PO HS 11/01/16 Reported Docusate Sodium 100 Mg Cap 100 Mg PO BID PRN 11/01/16 Reported Alendronate Sodium 70 Mg Tab 70 Mg PO WK 06/16/16 Reported WEDNESDAYS Singulair (Montelukast Sodium) 10 Mg Tab 10 Mg PO QAM 09/03/15 Reported Elavil (Amitriptyline Hcl) 10 Mg Tab 10 Mg PO HS 01/27/15 Reported Percocet 10MG/325MG (Oxycodone/Acetaminophen) Tab 1 Tab PO Q8H PRN 01/27/15 Reported Fentanyl 50 Mcg Tdsy 1 Patch TOP CQ72HR 02/08/14 Reported Advair Diskus 500-50 Mcg/Dose (Fluticasone Prop/Salmeterol) 14 Puff/1 Inhaler Aerp 1 Puff INH BID 02/08/14 Reported Wellbutrin Xl (Bupropion Hcl) 150 Mg Tab 150 Mg PO QAM 01/26/14 Reported Lasix (Furosemide) 20 Mg Tab 20 Mg PO QAM 06/12/13 Reported Combivent Respimat (Ipratropium-Albuterol) 1 Aer Aer 1 Puff INH QID PRN 02/14/13 Reported Lipitor (Atorvastatin Calcium) 40 Mg Tab 40 Mg PO QAM 10/20/12 Reported Aspirin Chewable (Aspirin) 81 Mg Chew 81 Mg PO QAM 07/25/12 Reported Protonix (Pantoprazole Sodium) 40 Mg Tab 40 Mg PO BID 12/08/11 Reported Spiriva Handihaler (Tiotropium [place]) 18 Mcg/ Aerp 1 Cap INH QAM 01/28/11 Reported Klor-Con (Potassium Chloride) 10 Meq Tabcr 10 Meq PO BID 05/22/09 Reported Inpatient Medications: Current Inpatient Medications Medications (Trade) Dose Ordered Sig/Christiana Route Start Time Stop Time Status Last Admin Dose Admin Cefazolin Sodium 60 ml @ 100 mls/hr PREOP IV 11/19/16 06:00 11/19/16 18:00 Lactated Ringer's (Lr 1000ml) 1,000 ml @ 15 mls/hr Q24H IV 11/19/16 06:00 11/20/16 05:59 11/19/16 06:54 15 MLS/HR Review of Systems Review of Systems Constitutional: + fever, + frequent headaches, No chills Endocrine: + excessive thirst, + tired/sluggish, No too cold, No too hot Gastrointestinal: + indigestion, No abdominal pain, No constipation, No nausea , No vomiting Cardiovascular: No chest pain, No palpitations Respiratory: + chronic cough, + shortness of breath Female : + blood in urine, + kidney stones Physical Exam Vital Signs: Vital Signs Past 12 Hours Date Time Temp Pulse Resp B/P Pulse Ox O2 Delivery O2 Flow Rate FiO2 11/19/16 05:43 36.9 90 20 168/81 95 Room Air Physical Exam: General Appearance: WD/WN, no apparent distress, + obese Eyes: bilateral eyes normal inspection ENT: hearing grossly normal Respiratory/Chest: chest non-tender, no accessory muscle use, + decreased breath sounds, + rhonchi Cardiovascular: regular rate, rhythm, no edema Extremities: non-tender, normal inspection, no pedal edema, no calf tenderness Neurologic/Psychiatric: alert, normal mood/affect, oriented x 3 Skin: normal color, warm/dry, no rash Assessment & Plan Assessment & Plan left ureteral and renal stones plan left ureteroscopy laser lithotripsy basket stone extraction 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
[2016-11-19] MEDS ORDERED: CEFAZOLIN SOD 1 GM VIAL ONE (07:48)
[2016-11-19] MEDS ORDERED: ALBUTEROL HFA INHALER 8.5 GM INH ONE (07:48)
[2016-11-19] MEDS ORDERED: SODIUM CHLORIDE 0.9% INJ 10 ML VIAL ONE (07:49)
[2016-11-19] MEDS ORDERED: EpHEDrine SULFATE INJ 50 MG/ML AMP IV PRN (08:15)
[2016-11-19] MEDS ORDERED: ATROPINE SULFATE 0.1 MG/ML 5ML SYR IV PRN (08:15)
[2016-11-19] MEDS ORDERED: ONDANSETRON INJ 2 MG/ML 2 ML VIAL IV PRN (08:15)
[2016-11-19] MEDS ORDERED: BELLADONNA/OPIUM SUPP 60 MG SUPP PR ONE (09:15)
--- NOTE | 2016-11-19 09:22 | [facility] Operative Report ---
Operative Report Operative Date Nov 19, 2016. Pre-Operative Diagnosis Left ureteral and kidney stones Post-Operative Diagnosis left renal stones, narrow left mid ureter Procedure(s) Performed cysto left ureteroscopy laser lithotripsy basket stone extraction stent exchange Surgeon Dr. Carine Elizalde Neurology Nurse Surgeon(s) None Estimated Blood Loss 1 mL Findings radio-opaque left renal stones, narrow left mid ureter Fluids 200mL Specimens Permanent specimens A: Left renal stone for analysis Drains 6 fr 24 centimeter double j stent Anesthesia GET Complication(s) None Disposition Recovery Room / PACU Indications obstructing left upper ureteral stone and many medium left renal stone in 3 locations in mid and lower left kidney. She was stented a few weeks ago to allow for ureteral dilation and now presents for stone removal. Description of Procedure Patient was given general ET anesthesia and placed in lithotomy position. Her genitals were prepped and draped in sterile fashion. Time out held with team. I placed a 22 fr rigid cystoscope to bladder. The urethra is unremarkable. The UOs are in normal location. The stent is clean. I grasped left stent tip and withdrew it to the meatus. I placed a stiff wire up left ureter to kidney and removed stent and found it to be intact. I attempted ureteral access sheath placement but it will not pass the mid ureter. There is no stone there just a dense slight narrowing of the ureter. I then passed the ureteroscope to the left kidney. The ureteral stone has been pushed into the renal pelvis. I used a 200 micron holmium laser to fragment 6 different stones into small pieces. I used a 2.2 fr zero tip basket to remove dozens of stone fragments. I then placed a 24 centimeter 6 Fr double J stent easily. There is brisk efflux after placement. I left bladder empty and concluded case. I placed a belladonna and opium suppository for post-op pain. She transferred to recovery under my escort, in stable condition. 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 Any exceptions are noted below.
[2016-11-19] MEDS ORDERED: FLM4 PO (09:26)
[2016-11-19] MEDS ORDERED: NITR1CAP16 PO (09:26)
[2016-11-19] MEDS ORDERED: OXYC-57 PO (09:26)
--- NOTE | 2016-11-19 09:28 | Discharge Instructions ---
Discharge Instructions Date of Service Nov 19, 2016. Admission Reason for Admission: Left Kidney Stone Discharge Discharge Diagnosis / Problem: kidney stones Discharge Goals Goal(s): Improve function, Improve disease control Activity Recommendations Activity Limitations: resume your previous activity Lifting Limitations: none Exercise/Sports Limitations: none May Resume Sexual Activity: when tolerated Shower/Bathe: no limitations . Instructions / Follow-Up Instructions / Follow-Up you will have bladder, urethra and left kidney pain for several days. call with fever over 100F take tamsulosin daily until stent is removed next week take macrobid antibiotic twice daily Discharge Diet Recommended Diet: Regular Diet Fluid Restriction: None Procedures Procedures Performed: Cystoscopy, Left Ureteroscopy, Laser Lithotripsy, Basket Stone Extraction; Stent Exchange Pending Studies Studies pending at discharge: yes List of pending studies: stone analysis Laboratory Results Hemoglobin A1c Test 11/01/16 02:55 Range/Units Estimated Average Glucose 154 mg/dl Hemoglobin A1c 7.0 H 4.5-5.6 % Medical Emergencies . Who to Call and When: Medical Emergencies: If at any time you feel your situation is an emergency, please call 911 immediately. . Non-Emergent Contact Non-Emergency issues call your: Urologist ([phone]) Call Non-Emergent contact if: temperature is above 100.5 . . "Provider Documentation" section prepared by Carine Elizalde. VTE Core Measure Inpt VTE Proph given/why not?: SCD's [place] Drug Monitoring Program Search Results: patient reviewed within database, no issues identified
[2016-11-19] MEDS: FENTANYL CITRATE INJ 50 MCG/1 ML 2 ML VIAL IV PRN ×3 (09:43→10:00)
[2016-11-19] MEDS ORDERED: ACETAMINOPHEN 1000 MG/100 ML IV IV ONE (09:59)
[2016-11-19] MEDS ORDERED: ACETAMINOPHEN IV 1,000 MG in EMPTY BAG 0 ML IV ONE (10:15)
[2016-11-19 10:30] VITALS: BP 118/65; PULSE 76; TEMP 36.6; O2SAT 96
--- NOTE | 2016-11-19 10:48 | DIAGNOSTIC IMAGING REPORT ---
KUB HISTORY: LEFT STENT EXCHANGE FLUOROSCOPY TIME: 10 seconds. FINDINGS: 3 fluoroscopic spot images were submitted for review. A guidewire was placed in the left ureter in a retrograde fashion. This is followed by placement of left ureteral stent. Only the distal portion of the stent is identified and appears be in good position. IMPRESSION: Fluoroscopy provided for left ureteral stent placement.. Electronically signed by: Wero Moore M.D. 11/19/2016 10:46 AM Dictated Date/Time: 11/19/2016 10:43 AM
--- NOTE | 2016-11-19 10:59 | Anesthesiology Progress Note ---
Anesthesia Post Op Note Date & Time Nov 19, 2016 at 10:58 Vital Signs Pain Intensity: 3 Vital Signs Past 12 Hours Date Time Temp Pulse Resp B/P Pulse Ox O2 Delivery O2 Flow Rate FiO2 11/19/16 10:30 36.6 76 22 118/65 96 Nasal Cannula 2.5 11/19/16 10:10 78 14 118/60 96 Nasal Cannula 2 11/19/16 10:00 75 14 119/61 96 Nasal Cannula 2 11/19/16 09:55 74 16 134/69 95 Nasal Cannula 2 11/19/16 09:45 76 16 129/71 96 Nasal Cannula 2 11/19/16 09:35 78 16 127/67 99 Nasal Cannula 3 11/19/16 09:25 79 16 115/63 97 Nasal Cannula 3 11/19/16 09:18 36.1 78 16 120/70 100 Nasal Cannula 3 11/19/16 05:43 36.9 90 20 168/81 95 Room Air Notes Mental Status: alert / awake / arousable, participated in evaluation Pt Amnestic to Procedure: Yes Nausea / Vomiting: adequately controlled Pain: adequately controlled Airway Patency, RR, SpO2: stable & adequate BP & HR: stable & adequate Hydration State: stable & adequate Anesthetic Complications: no major complications apparent post op flank pain controlled with fentanyl and ofirmev
[2017-06-27] MEDS ORDERED: GENT0.3S6 OPB (02:57)
== END 2016-11-19 11:16 | disposition home or self-care (01) ==
LOC: C.ACU 05:12
PROVIDERS: ATTEND Urology
DX: N20.2 Calculus of kidney with calculus of ureter (principal); E11.9 Type 2 diabetes mellitus without complications; I10 Essential (primary) hypertension; J44.9 Chronic obstructive pulmonary disease, unspecified; K21.9 Gastro-esophageal reflux disease without esophagitis; Z87.891 Personal history of nicotine dependence

== ENCOUNTER 2017-04-01 23:55 | Emergency (ER) | payer OTHER ==
[~2017-04-01] VITALS: Ht 157.5 cm; Wt 111.8 kg
[~2017-04-01 23:55] MED LIST changes: +OXYC-57 PO
[2017-04-01 23:58] VITALS: TEMP 36.7; Ht 157.5 cm; Wt 111.8 kg
[2017-04-02] MEDS ORDERED: KETOROLAC TROMETHAMINE 60 MG/2 ML VIAL IM STA (00:12)
--- NOTE | 2017-04-02 00:40 | EMERGENCY ROOM VISIT NOTE ---
History Report prepared by Renay: Dariusz Renteria Under the Supervision of: Dr. Georgie Rodriguez D.O. First contact with patient: 00:04 Chief Complaint: KNEEPAIN Stated Complaint: KNEE PAIN History of Present Illness The patient is a 66 year old female who presents to the Emergency Room with complaints of constant right knee pain beginning yesterday. The patient states that her porch was giving out, and it had a table with wood on it. She reports that yesterday afternoon she was chasing her cat and stepped on the weak portion of the porch. The patient notes her porch caved in, and the wood landed directly on her knee. She states that she was pinned down to the porch, and it took her daughter five minutes to remove all the wood. The patient reports that it hurts to walk, and she believes her knee has an indent in it. She notes that she is able to bed it, but it hurts. The patient states that she is using fentanyl patches and oxycodone for pain. She notes that she has a history of degenerative disk disease. The patient states that she went to the orthopedic the other day and was told she does not have cartilage in her knee; it is bone to bone contact. She denies a history of knee surgeries. The patient denies calf tenderness, hitting head, abdominal pain, and pain to the back of her knee. Source of History: patient Onset: yesterday Position: knee (right) Timing: constant Modifying Factors (Worsening): movement Modifying Factors (Relieving): narcotics Associated Symptoms: No abdominal pain Note: The patient denies calf tenderness, hitting head, and pain to the back of her knee. Review of Systems See HPI for pertinent positives & negatives. A total of 10 systems reviewed and were otherwise negative. Past Medical & Surgical Medical Problems: (1) Benign hypertension (2) Calculus of kidney and ureter (3) Chronic Obstructive Asthma, Nos (4) Chronic obstructive lung disease (5) Diabetes mellitus type 2 (6) Dyslipidemia (7) Gastroesophageal reflux disease (8) Hypertension Nos (9) intractable vomiting (10) Lumbago (11) Morbid Obesity (12) Personal History, Pneumonia (Recurrent) (13) Renal colic (14) Sleep apnea (15) Spinal stenosis Family History High cholesterol Hypertension Social History Smoking Status: Current Every Day Smoker Alcohol Use: none Drug Use: none Marital Status: Housing Status: lives with family Occupation Status: retired Current/Historical Medications Scheduled Alendronate Sodium (Alendronate Sodium), 70 MG PO WK Amitriptyline Hcl (Elavil), 10 MG PO HS Aspirin (Aspirin Chewable), 81 MG PO QAM Atorvastatin (Lipitor), 40 MG PO QAM Baclofen (Lioresal), 10 MG PO BID Bupropion Hcl (Wellbutrin Xl), 150 MG PO QAM Fentanyl (Fentanyl), 1 PATCH TOP CQ72HR Fluticasone Prop/Salmeterol (Advair Diskus 500-50 Mcg/Dose), 1 PUFF INH BID Furosemide (Lasix), 20 MG PO QAM Home O2 Therapy (Oxygen), 2.5 LITERS NA HS Lactic Acid (Ammonium Lactate Cream 12%), 1 DOSE TOP DAILY Montelukast Sodium (Singulair), 10 MG PO QAM Pantoprazole (Protonix), 40 MG PO BID Potassium Chloride (Potassium Chloride Er), 10 MEQ PO BID Ropinirole (Requip), 1 MG PO HS Tiotropium [place] (Spiriva Handihaler), 1 CAP INH QAM Scheduled PRN Albuterol Sulf (Proventil 0.083% 2.5MG/3ML), 2.5 MG INH QID PRN for PRN Docusate Sodium (Docusate Sodium), 100 MG PO BID PRN for PRN Ipratropium-Albuterol (Combivent Respimat), 1 PUFF INH QID PRN for SOB/Wheezing Levofloxacin (Levaquin), 750 MG PO UD PRN for RN Nitroglycerin (Nitrostat), 0.4 MG UT UD PRN for Chest Pain Oxycodone/Acetaminophen 10MG/325MG (Percocet 10MG/325MG), 1 TAB PO Q8H PRN for Pain Prednisone Tab (Prednisone), 10 MG PO UD PRN for RN Allergies Coded Allergies: Aspirin (Verified Allergy, Unknown, Patient can take upto 81 mg of ASA not any higher- hives, 11/19/16) NSAIDs (Verified Allergy, Unknown, hives, 11/19/16) Tramadol (Verified Adverse Reaction, Intermediate, URINARY RETENTION, ) Morphine (Verified Adverse Reaction, Mild, HALLUCINATIONS-PT DENIES, ) Physical Exam Vital Signs Date Time Temp Pulse Resp B/P (MAP) Pulse Ox O2 Delivery O2 Flow Rate FiO2 04/02/17 01:26 76 16 133/76 95 04/01/17 23:58 36.7 85 20 167/98 99 Room Air Physical Exam Neck: Supple; no JVD, nuchal rigidity, cervical lymphadenopathy. Heart: Regular rate and rhythm. There is a normal S1 and S2 with no murmurs, clicks, or gallops appreciated. Heart sounds distant secondary to body habitus. Lungs: Clear to auscultation bilaterally with no wheezes, rales, or rhonchi. Lung sounds distant secondary to body habitus. Abdomen: Soft, completely nontender, nondistended, with good bowel sounds. There are no palpable pulsatile masses or hepatosplenomegaly. There is no guarding, rigidity, or rebound noted. Extremities: Pain to palpation and edema over the lateral aspect of the right knee. Pain to palpation to the anterior and inferior aspect of the right knee. Could not tolerate any ligamentous testing. There are easily palpable peripheral pulses. Skin: warm and dry with good turgor and no rashes. Medical Decision & Procedures ER Provider Diagnostic Interpretation: X-ray results as stated below per interpretation by me: Right Knee Two View: no joint effusion, no obvious fracture, unchanged from 2014 Medications Administered Medications (Trade) Dose Ordered Sig/Christiana Route Start Time Stop Time Status Last Admin Dose Admin Ketorolac Tromethamine (Toradol Inj) 60 mg NOW STAT IM 04/02/17 00:12 04/02/17 00:14 DC 04/02/17 00:19 60 MG Procedure 0012: Ordered Toradol Inj 60 mg IM ED Course 0008: The patient was evaluated in room B09. A complete history and physical examination were performed. Nursing notes and previous electronic medical records were reviewed. 0012: Ordered Toradol Inj 60 mg IM. The patient went for plain films of the right knee as described above. 0121: The patient showed significant improvement of her symptoms. She is supposed to have a knee brace sent to her house from orthopedics. She will use her cane at home to ambulate. I discussed findings and results with her. She verbalized agreement of the treatment plan. She was discharged home. Medical Decision The patient is a 66 year old female who presents to the ED with right knee pain. Differential diagnosis includes lower extremity fracture, knee contusion, knee strain, and ligamentous injury to the right knee. X-ray shows no acute evidence of atraumatic injury. The patient had significant improvement in her symptoms after receiving IM Toradol. The patient has a history of chronic knee pain for which she was seen at orthopedics. They've ordered the patient to use a cane and wear a brace. The patient plans to do this. She will follow-up with [facility] orthopedics. Medication Reconcilliation Current Medication List: was personally reviewed by me Blood Pressure Screening Patient's blood pressure: Normal blood pressure Blood pressure disposition: Did not require urgent referral Impression Primary Impression: Contusion of knee, right Scribe Attestation The scribe's documentation has been prepared under my direction and personally reviewed by me in its entirety. I confirm that the note above accurately reflects all work, treatment, procedures, and medical decision making performed by me. Departure Information Dispostion Home / Self-Care Referrals No Doctor, Assigned (PCP) Forms HOME CARE DOCUMENTATION FORM, IMPORTANT VISIT INFORMATION Patient Instructions Contusion Bone About, My [facility] [employer] Additional Instructions Rest the knee. limit standing and walking Take tylenol for pain Wear the brace when you get it. Use the cane Problem Qualifiers Primary Impression: Contusion of knee, right Encounter type: initial encounter Qualified Codes: S80.01XA - Contusion of right knee, initial encounter
[2017-04-02] MEDS ORDERED: SPRIN/30 INH (01:16)
[2017-04-02] MEDS ORDERED: POTA-74 PO (01:17)
[2017-04-02 01:26] VITALS: BP 133/76; PULSE 76; O2SAT 95
--- NOTE | 2017-04-02 07:14 | DIAGNOSTIC IMAGING REPORT ---
RIGHT KNEE 1 OR 2 VIEWS ROUTINE CLINICAL HISTORY: eval right knee - pile of wood fell on leg Right pain. Trauma. COMPARISON: None. DISCUSSION: Degenerative change all major joint compartments. Moderate peripheral reactive osteophytic formation. No evidence for fracture or dislocation. Mild soft tissue edema IMPRESSION: Degenerative change. Mild soft tissue edema. The above report was generated using voice recognition software. It may contain grammatical, syntax or spelling errors. Electronically signed by: Camron Ramsey M.D. 04/02/2017 7:13 AM Dictated Date/Time: 04/02/2017 7:12 AM
== END 2017-04-02 01:27 | disposition home or self-care (01) ==
LOC: C.EDB 23:57
DX: S80.01XA Contusion of right knee, initial encounter (principal); W23.1XXA Caught, crushed, jammed, or pinched between stationary objects, initial encounter; Y92.018 Other place in single-family (private) house as the place of occurrence of the external cause; I10 Essential (primary) hypertension; E11.9 Type 2 diabetes mellitus without complications; E78.5 Hyperlipidemia, unspecified; K21.9 Gastro-esophageal reflux disease without esophagitis; J44.9 Chronic obstructive pulmonary disease, unspecified; E66.01 Morbid (severe) obesity due to excess calories; G47.30 Sleep apnea, unspecified; M48.00 Spinal stenosis, site unspecified; F17.200 Nicotine dependence, unspecified, uncomplicated; Z82.49 Family history of ischemic heart disease and other diseases of the circulatory system; Z79.82 Long term (current) use of aspirin

== ENCOUNTER 2017-06-30 02:36 | Emergency (ER) | payer OTHER ==
[~2017-06-30] VITALS: Ht 154.9 cm; Wt 115.0 kg
[~2017-06-30 02:36] MED LIST changes: -FLM4 PO; +GENT0.3S6 OPB; -ONDA4TAB46 PO; -OXYC-57 PO; -POTA-327 PO; +POTA-74 PO; +SPRIN/30 INH; -TIOTCAP INH
[2017-06-30 02:44] VITALS: TEMP 36.8; Ht 154.9 cm; Wt 115.0 kg
[2017-06-30] MEDS ORDERED: FENTANYL CITRATE INJ 50 MCG/1 ML 2 ML VIAL IV STA (03:15)
[2017-06-30] MEDS ORDERED: ONDANSETRON 4MG OD TAB PO ONE (03:15)
[2017-06-30] MEDS ORDERED: PROMETHAZINE HCL INJ 25 MG/ML 1 ML VIAL IM STA (03:15)
[2017-06-30] MEDS ORDERED: SODIUM CHLORIDE 0.9% 500ML 500 ML IV STA (03:15)
[2017-06-30 03:45] LABS: HEMATOCRIT 39.3 % (37-47); MEAN CELL VOLUME 87.1 fL (80-100); MEAN CORPUSCULAR HEMOGLOBIN 27.9 pg (25-34); MEAN CORPUSCULAR HGB CONC 32.1 g/dl (32-36); MEAN PLATELET VOLUME 12.1 fL (7.4-10.4); PLATELET COUNT 183 K/uL (130-400); RED BLOOD COUNT 4.51 M/uL (4.2-5.4); WHITE BLOOD COUNT 19.08 K/uL (4.8-10.8)
[2017-06-30 03:54] LABS: URINE APPEARANCE CLEAR (CLEAR); URINE BILIRUBIN NEG (NEG); URINE COLOR YELLOW; URINE NITRITE NEG (NEG); URINE SPECIFIC GRAVITY 1.023 (1.000-1.030); UROBILINOGEN NEG (NEG); ZZUR CULT IF INDIC CLEAN CATCH NO
[2017-06-30 04:00] LABS: MANUAL MICROSCOPIC REQUIRED? NO; REVIEW REQ? YES
[2017-06-30 04:02] LABS: ALT/SGPT 32 U/L (12-78); AST/SGOT 20 U/L (15-37); BLOOD UREA NITROGEN 15 mg/dl (7-18); BUN/CREATININE RATIO 17.4 (10-20); CALCIUM 8.8 mg/dl (8.5-10.1); CARBON DIOXIDE 28 mmol/L (21-32); CHLORIDE 106 mmol/L (98-107); CREATININE 0.86 mg/dl (0.60-1.20); GLUCOSE 158 mg/dl (70-99); MAGNESIUM 1.8 mg/dl (1.8-2.4); SODIUM 142 mmol/L (136-145)
--- NOTE | 2017-06-30 04:02 | EMERGENCY ROOM VISIT NOTE ---
History Report prepared by Renay: Cynthia Barnard Under the Supervision of: Dr. Kaur Camargo M.D. First contact with patient: 02:51 Chief Complaint: FLU LIKE SX Stated Complaint: FLU LIKE SYMPTOMS History of Present Illness The patient is a 66 year old female who presents to the Emergency Room with complaints of persistent vomiting starting [employer]. The patient presents to the ED by EMS. The patient is currently on eye drops for an eye infection. She started using the eye drops 3 days ago. Since then, she has had an upset stomach. Today , she started vomiting when she was trying to take her medications. She is currently having 10/10 pain all over her body because she has been unable to take her pain medication. She states that her fentanyl patch fell off 3 days ago. She put one on today, but reports that EMS knocked it off. Her mouth feels dry. She has been drinking a lot of water. She is having diarrhea. She denies any chest pain or SOB. She is borderline diabetic. She is not on Coumadin. 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 Review of Systems See HPI for pertinent positives & negatives. A total of 10 systems reviewed and were otherwise negative. Past Medical & Surgical Medical Problems: (1) Benign hypertension (2) Calculus of kidney and ureter (3) Chronic Obstructive Asthma, Nos (4) Chronic obstructive lung disease (5) Diabetes mellitus type 2 (6) Dyslipidemia (7) Gastroesophageal reflux disease (8) Hypertension Nos (9) intractable vomiting (10) Lumbago (11) Morbid Obesity (12) Personal History, Pneumonia (Recurrent) (13) Renal colic (14) Sleep apnea (15) Spinal stenosis Family History High cholesterol Hypertension Social History Smoking Status: Former Smoker Alcohol Use: none Drug Use: none Marital Status: Housing Status: lives with family Occupation Status: retired Current/Historical Medications Scheduled Alendronate Sodium (Alendronate Sodium), 70 MG PO WK Amitriptyline Hcl (Elavil), 10 MG PO HS Aspirin (Aspirin Chewable), 81 MG PO QAM Atorvastatin (Lipitor), 40 MG PO QAM Baclofen (Lioresal), 10 MG PO BID Bupropion Hcl (Wellbutrin Xl), 150 MG PO QAM Fentanyl (Fentanyl), 1 PATCH TOP [id number] Fluticasone Prop/Salmeterol (Advair Diskus 500-50 Mcg/Dose), 1 PUFF INH BID Furosemide (Lasix), 20 MG PO QAM Gentamicin Sulfate (Ophth) (Gentak), 1 DROP OPB Q4 Home O2 Therapy (Oxygen), 2.5 LITERS NA HS Lactic Acid (Ammonium Lactate Cream 12%), 1 DOSE TOP DAILY Montelukast Sodium (Singulair), 10 MG PO QAM Pantoprazole (Protonix), 40 MG PO BID Potassium Chloride (Potassium Chloride Er), 10 MEQ PO BID Ropinirole (Requip), 1 MG PO HS Tiotropium [place] (Spiriva Handihaler), 1 CAP INH QAM Scheduled PRN Albuterol Sulf (Proventil 0.083% 2.5MG/3ML), 2.5 MG INH QID PRN for PRN Docusate Sodium (Docusate Sodium), 100 MG PO BID PRN for PRN Ipratropium-Albuterol (Combivent Respimat), 1 PUFF INH QID PRN for SOB/Wheezing Levofloxacin (Levaquin), 750 MG PO UD PRN for RN Nitroglycerin (Nitrostat), 0.4 MG UT UD PRN for Chest Pain Oxycodone/Acetaminophen 10MG/325MG (Percocet 10MG/325MG), 1 TAB PO Q8H PRN for Pain Prednisone Tab (Prednisone), 10 MG PO UD PRN for RN Allergies Coded Allergies: Aspirin (Verified Allergy, Unknown, Patient can take upto 81 mg of ASA not any higher- hives, 06/30/17) NSAIDs (Verified Allergy, Unknown, hives, 06/30/17) Tramadol (Verified Adverse Reaction, Intermediate, URINARY RETENTION, ) Morphine (Verified Adverse Reaction, Mild, HALLUCINATIONS-PT DENIES, 06/30) Physical Exam Vital Signs Date Time Temp Pulse Resp B/P (MAP) Pulse Ox O2 Delivery O2 Flow Rate FiO2 06/30/17 04:46 99 15 160/91 95 06/30/17 04:37 99 15 160/91 95 Room Air 06/30/17 03:50 99 20 135/90 96 Room Air 06/30/17 02:44 36.8 100 15 174/70 94 Room Air Physical Exam Vital signs reviewed. General: Chronically ill-appearing female, in no significant distress. HEENT: Edentulous. Dry mucous membranes. No scleral icterus, PERRLA, neck supple. Atraumatic. Cardiovascular: Regular rate and rhythm, no extra sounds. Pulmonary: Clear to auscultation bilaterally, normal work of breathing. Abdomen: Obese, soft, diffusely tender, no rebound, no guarding, nondistended, positive bowel sounds. Musculoskeletal: Atraumatic, no peripheral edema. Neurologic: Patient awake alert and oriented x 3, full strength in all 4 extremities. Cranial nerves 2 through 12 grossly intact. Skin: Warm, dry, no rash Medical Decision & Procedures ER Provider Diagnostic Interpretation: Abdominal x-ray series: Abdominal x-ray series to my interpretation is negative for free air or obstruction. Chest x-ray is largely clear. No focal lung consolidation or failure evident. Laboratory Results 06/30/17 03:30 Red Blood Count 4.51, Mean Corpuscular Volume 87.1, Mean Corpuscular Hemoglobin 27.9, Mean Corpuscular Hemoglobin Concent 32.1, Mean Platelet Volume 12.1, Neutrophils (%) (Auto) 86.7, Lymphocytes (%) (Auto) 3.6, Monocytes (%) (Auto) 8.9, Eosinophils (%) (Auto) 0.4, Basophils (%) (Auto) 0.1, Neutrophils # (Auto) 16.56, Lymphocytes # (Auto) 0.68, Monocytes # (Auto) 1.69, Eosinophils # (Auto) 0.08, Basophils # (Auto) 0.02 06/30/17 03:30 Test 06/30/17 03:30 06/30/17 03:40 White Blood Count 19.08 K/uL (4.8-10.8) Red Blood Count 4.51 M/uL (4.2-5.4) Hemoglobin 12.6 g/dL (12.0-16.0) Hematocrit 39.3 % (37-47) Mean Corpuscular Volume 87.1 fL (80-100) Mean Corpuscular Hemoglobin 27.9 pg (25-34) Mean Corpuscular Hemoglobin Concent 32.1 g/dl (32-36) Platelet Count 183 K/uL (130-400) Mean Platelet Volume 12.1 fL (7.4-10.4) Neutrophils (%) (Auto) 86.7 % Lymphocytes (%) (Auto) 3.6 % Monocytes (%) (Auto) 8.9 % Eosinophils (%) (Auto) 0.4 % Basophils (%) (Auto) 0.1 % Neutrophils # (Auto) 16.56 K/uL (1.4-6.5) Lymphocytes # (Auto) 0.68 K/uL (1.2-3.4) Monocytes # (Auto) 1.69 K/uL (0.11-0.59) Eosinophils # (Auto) 0.08 K/uL (0-0.5) Basophils # (Auto) 0.02 K/uL (0-0.2) RDW Standard Deviation 49.3 fL (36.4-46.3) RDW Coefficient of Variation 15.5 % (11.5-14.5) Immature Granulocyte % (Auto) 0.3 % Immature Granulocyte # (Auto) 0.05 K/uL (0.00-0.02) Toxic Vacuolation 1+ Anion Gap 8.0 mmol/L (3-11) Est Creatinine Clear Calc Drug Dose 75.8 ml/min Estimated GFR () 81.6 Estimated GFR (Non- 70.4 BUN/Creatinine Ratio 17.4 (10-20) Calcium Level 8.8 mg/dl (8.5-10.1) Magnesium Level 1.8 mg/dl (1.8-2.4) Total Bilirubin 0.4 mg/dl (0.2-1) Direct Bilirubin < 0.1 mg/dl (0-0.2) Aspartate Amino Transf (AST/SGOT) 20 U/L (15-37) Alanine Aminotransferase (ALT/SGPT) 32 U/L (12-78) Alkaline Phosphatase 104 U/L (45-117) Total Protein 7.4 gm/dl (6.4-8.2) Albumin 3.5 gm/dl (3.4-5.0) Lipase 184 U/L (73-393) Urine Color YELLOW Urine Appearance CLEAR (CLEAR) Urine pH 6.0 (4.5-7.5) Urine Specific Rock 1.023 (1.000-1.030) Urine Protein NEG (NEG) Urine Glucose (UA) NEG (NEG) Urine Ketones TRACE (NEG) Urine Occult Blood NEG (NEG) Urine Nitrite NEG (NEG) Urine Bilirubin NEG (NEG) Urine Urobilinogen NEG (NEG) Urine Leukocyte Esterase TRACE (NEG) Urine WBC (Auto) 1-5 /hpf (0-5) Urine RBC (Auto) 0-4 /hpf (0-4) Urine Hyaline Casts (Auto) 0 /lpf (0-5) Urine Epithelial Cells (Auto) 10-20 /lpf (0-5) Urine Bacteria (Auto) NEG (NEG) Urine Crystals CALCIUM OXALATE (NONE Laboratory results per my review. Medications Administered Medications (Trade) Dose Ordered Sig/Christiana Route Start Time Stop Time Status Last Admin Dose Admin Ondansetron HCl (Zofran Odt) 4 mg ONE ONCE PO 06/30/17 03:15 06/30/17 03:16 DC 06/30/17 03:11 4 MG Sodium Chloride 500 ml @ 999 mls/hr Q31M STAT IV 06/30/17 03:15 06/30/17 03:45 DC 06/30/17 03:15 999 MLS/HR Promethazine HCl (Phenergan Inj) 25 mg NOW STAT IM 06/30/17 03:15 06/30/17 03:19 DC 06/30/17 03:51 25 MG Fentanyl Citrate (Fentanyl Inj) 50 mcg NOW STAT IV 06/30/17 03:15 06/30/17 03:19 DC 06/30/17 03:47 50 MCG ECG Indication: nausea Rate (beats per minute): 96 Rhythm: normal sinus Findings: no acute ischemic change, no ectopy ED Course 0313: Past medical records reviewed. The patient was evaluated in room B12B. A complete history and physical examination was performed. 0315: Fentanyl Citrate 50 mcg IV, Promethazine HCl 25 mg IM, NSS 500 ml @ 999 mls/hr IV, Zofran Odt 4 mg PO. 0434: Upon reevaluation, the patient appeared to have improvement of her symptoms. I discussed findings with her. She verbalized agreement of the treatment plan. She was discharged home. Medical Decision Differential diagnosis: Etiologies such as gastroenteritis, food borne illness, infections, appendicitis , diverticulitis, inflammatory bowel disease, obstruction, GI bleed, biliary pathology, medication withdrawal as well as others were entertained. This patient was evaluated and appeared to be in no significant distress. Patient seems to be somewhat uncomfortable on exam. She initially was hesitant to have an IV placed and laboratory work drawn. Patient was given Zofran 4 mg ODT. She had no further vomiting or diarrhea in the emergency department. She had been given 25 g of IV fentanyl and 25 mg of IM Phenergan for nausea. Patient did receive IV hydration. Abdominal x-ray series to my interpretation is negative for free air or obstruction. Chest x-ray is largely to clear. Patient is found have a leukocytosis of 19. She is afebrile without any other infectious symptoms. I suspect this is reactive. After the above interventions the patient stated she is "feeling much better and ready to go home." She does have family at the bedside. Patient will be discharged to see her PCP tomorrow as scheduled. She'll be given a Zofran home pack. Patient will return to the ER for worsening of symptoms or any medical concerns. Medication Reconcilliation Current Medication List: was personally reviewed by me Blood Pressure Screening Patient's blood pressure: Elevated blood pressure Blood pressure disposition: Elevated BP felt to be situational, Referred to PCP Impression Primary Impression: Acute narcotic withdrawal Scribe Attestation The scribe's documentation has been prepared under my direction and personally reviewed by me in its entirety. I confirm that the note above accurately reflects all work, treatment, procedures, and medical decision making performed by me. Departure Information Dispostion Home / Self-Care Referrals Mariano Torres D.O. (PCP) Forms HOME CARE DOCUMENTATION FORM, IMPORTANT VISIT INFORMATION Patient Instructions My [facility] Additional Instructions Diagnosis: Acute narcotic withdrawal Please drink plenty of clear fluids. Follow-up with your physician tomorrow for discussion of your narcotic prescription management and for reevaluation. Zofran 4 mg ODT every 6 hours as needed for nausea. Return to the emergency department for worsening of symptoms, fever, increased pain, inability to keep fluids down or any medical concerns.
[2017-06-30 04:05] LABS: ALKALINE PHOSPHATASE 104 U/L (45-117)
[2017-06-30 04:13] LABS: BASO % 0.1 %; BASO ABS # 0.02 K/uL (0-0.2); COMPLETE YES; EOS % 0.4 %; IG% 0.3 %; LYMPH % 3.6 %; LYMPH ABS # 0.68 K/uL (1.2-3.4); MONO % 8.9 %; NEUT % 86.7 %; VACUOLIZATION 1+
[2017-06-30] MEDS ORDERED: ONDANSETRON HOME PACK 4MG OD TAB PO ONE (04:45)
[2017-06-30 04:46] VITALS: BP 160/91; PULSE 99; O2SAT 95
--- NOTE | 2017-06-30 07:04 | DIAGNOSTIC IMAGING REPORT ---
ABDOMEN 2VIEW W/PA CHEST RTN HISTORY: 66 years-old Female SOB, nausea acute shortness of breath with nausea COMPARISON: Chest radiograph 11/12/2016, CT 11/01/2016 TECHNIQUE: Frontal view of the chest with erect and supine views of the abdomen FINDINGS: Cardiac silhouette is mildly enlarged and unchanged. There is atherosclerosis of the aorta. There is no pneumothorax, pleural effusion, focal airspace consolidation or overt pulmonary edema. Linear subsegmental left basilar opacities are again seen suggesting atelectasis or scarring. Degenerative changes are seen about the shoulders and spine. Multiple left-sided nephrolithiasis redemonstrated measuring up to approximately 6 mm. No definite ureteral calculi. Calcifications of the pelvis suggest phleboliths. Nonspecific small bowel air-fluid level of the left midabdomen. No pneumoperitoneum. Bowel gas pattern is nonobstructive. No organomegaly. Moderate degenerative changes of the hips. Degenerative changes of the lower lumbar spine also noted. IMPRESSION: 1. Mild cardiomegaly without acute cardiopulmonary process. 2. Left-sided nephrolithiasis redemonstrated without definite ureteral calculi. 3. Nonspecific small bowel air-fluid level of the left midabdomen may reflect ileus or enteritis. No bowel obstruction or pneumoperitoneum. The above report was generated using voice recognition software. It may contain grammatical, syntax or spelling errors. Electronically signed by: Naren Smith M.D. 06/30/2017 7:02 AM Dictated Date/Time: 06/30/2017 6:59 AM
== END 2017-06-30 04:48 | disposition home or self-care (01) ==
LOC: EDBD 02:36 → C.EDB 02:37
DX: F11.23 Opioid dependence with withdrawal (principal); R11.0 Nausea; I10 Essential (primary) hypertension; E11.9 Type 2 diabetes mellitus without complications; E78.5 Hyperlipidemia, unspecified; J44.9 Chronic obstructive pulmonary disease, unspecified; K21.9 Gastro-esophageal reflux disease without esophagitis; G47.39 Other sleep apnea; Z87.442 Personal history of urinary calculi; Z87.01 Personal history of pneumonia (recurrent); Z87.891 Personal history of nicotine dependence; Z79.82 Long term (current) use of aspirin; Z79.899 Other long term (current) drug therapy; Z88.5 Allergy status to narcotic agent; Z88.6 Allergy status to analgesic agent; Z88.8 Allergy status to other drugs, medicaments and biological substances; Z82.49 Family history of ischemic heart disease and other diseases of the circulatory system

== ENCOUNTER → 2017-07-01 | Outpatient (CLI) | payer OTHER ==
--- NOTE | 2017-07-01 13:07 | DIAGNOSTIC IMAGING REPORT ---
BILATERAL LOWER EXTREMITY VENOUS DOPPLER HISTORY: Bilateral leg edema. COMPARISON STUDY: None. FINDINGS: There is normal compressibility, flow, and augmentation within the bilateral lower extremity deep venous systems. A 5.8 x 2.9 x 0.9 cm complex popliteal cyst demonstrating septations and a few small calcifications. IMPRESSION: No DVT within the right or left lower extremity. Complex left popliteal cyst. Electronically signed by: Wero Moore M.D. 07/01/2017 1:05 PM Dictated Date/Time: 07/01/2017 1:04 PM
== END | disposition home or self-care (01) ==
LOC: C.ULTR 12:06
PROVIDERS: ATTEND Internal Medicine
DX: R60.0 Localized edema (principal); M71.22 Synovial cyst of popliteal space [Baker], left knee

== ENCOUNTER 2019-08-03 11:47 | Inpatient (IN) ==
[2019-08-03] MEDS ORDERED: fentaNYL citrate 100 MCG/2 ML VIAL IV STA (12:23)
[2019-08-03] MEDS ORDERED: ONDANSETRON INJ 2 MG/ML 2 ML VIAL IV STA (12:24)
[2019-08-03] MEDS ORDERED: fentaNYL citrate 100 MCG/2 ML VIAL IV PRN (12:35)
[2019-08-03] MEDS ORDERED: CEFAZOLIN 3,000 MG in DEXTROSE 5% 50 ML IV STA (12:35)
[2019-08-03 12:56] LABS: Basophils # (auto) 0.03 K/uL (0-0.2); Basophils % (auto) 0.3 %; Eosinophils # (auto) 0.11 K/uL (0-0.5); Eosinophils % (auto) 1.2 %; Hematocrit (blood only) 36.6 % (37-47); Hemoglobin 11.6 g/dL (12.0-16.0); Immature Granulocytes # (auto) 0.02 K/uL (0.00-0.02); Immature Granulocytes % (auto) 0.2 %; Lymphocytes # (auto) 1.17 K/uL (1.2-3.4); Lymphocytes % (auto) 12.3 %; Mean Corpuscular Hgb Conc 31.7 g/dL (32-36); Mean Corpuscular Volume 88.4 fL (80-100); Mean Platelet Volume 11.7 fL (7.4-10.4); Monocytes # (auto) 0.66 K/uL (0.11-0.59); Monocytes % (auto) 6.9 %; Neutrophils # (auto) 7.54 K/uL (1.4-6.5); Neutrophils % (auto) 79.1 %; Platelet Count 192 K/uL (130-400); RDW Coefficient of Variation 16.4 % (11.5-14.5); Red Blood Count 4.14 M/uL (4.2-5.4); White Blood Count 9.53 K/uL (4.8-10.8)
[2019-08-03 13:06] LABS: Partial Thromboplastin Ratio 0.9; Partial Thromboplastin Time 24.5 Seconds (21.0-31.0); Prothrombin Time 10.3 Seconds (9.0-12.0)
--- NOTE | 2019-08-03 13:10 | XRay Report ---
XR knee LT 1 or 2V routine HISTORY: 68 years-old Female laceration, fall acute left knee pain status post fall with soft tissue laceration COMPARISON: None available TECHNIQUE: 2 views of the left knee FINDINGS: Mildly demineralized appearance of the bones. Mild tricompartmental osteoarthritis. There is a large soft tissue defect of the anterior knee at the level of the patella. Extensive associated soft tissue swelling with areas of deep tissue air compatible with penetrating injury. No acute fracture, disloc ation or opaque foreign body. Small joint effusion. Soft tissue calcifications are noted within the s oft tissues posterior to the knee. Arterial calcifications also noted. IMPRESSION: 1. Soft tissue swelling with large soft tissue defect and deep tissue air of the anterior knee compat ible with penetrating injury. 2. No acute fracture, dislocation or opaque foreign body. ACT 112: Negative or not required by law. The above report was generated using voice recognition software. It may contain grammatical, syntax o r spelling errors. Electronically signed by: Naren Smith M.D. 08/03/2019 1:09 PM
[2019-08-03 13:14] LABS: Albumin Level 3.2 gm/dl (3.4-5.0); BUN Creatinine Ratio 13.1 (10-20); Calcium 8.7 mg/dl (8.5-10.1); Creatinine Clr Calc Pharmacy 82.1 ml/min; Est GFR (African American) 87.8; Est GFR (Non-African American) 75.8; Potassium 4.3 mmol/L (3.5-5.1)
[2019-08-03 13:17] LABS: Albumin Globulin Ratio 0.9 (0.9-2); Bilirubin,Total 0.5 mg/dl (0.2-1); Globulin 3.4 gm/dl (2.5-4.0); Total Protein 6.6 gm/dl (6.4-8.2)
--- NOTE | 2019-08-03 13:18 | Emergency Department Note ---
History of Present Illness General Chief Complaint: Fall Source: patient Mode of arrival: ambulatory Limitations: no limitations History of Present Illness Provider complaint: fall Onset (ago): hour(s) 1 Fall from: standing Fall witnessed: no Place fall occurred: home Loss of consciousness: none Prolonged down time: no Symptoms prior to fall: none Treatments prior to arrival: + other (Fentanyl, bandaging) Context: + tripped/slipped and + history of frequent falls Location of injury - extremities: Left: knee Severity: severe Current Pain Intensity: 10 Quality: + sharp and + throbbing This 68-year-old female patient presents emergency department today via ambulance due to a large laceration/degloving type of injury on the left knee. The patient states she tripped and fell, and slid across the carpet in the house. She states when she fell, she landed directly onto her left knee. She denies any head injury or loss of consciousness. She is supposed to be ambulating with assistive devices and was not using them. Patient reports sharp and throbbing 10/10 pain. The bleeding was controlled with bulky dressing by EMS staff. The patient states she was able to get herself up and ambulate after the fall with the help of the dog. Tetanus vaccination is up-to-date. Patient denies any history of surgery or injury to this knee. Related Data Patient tetanus UTD: Yes Home Medications Home Medications Medication Instructions Recorded Confirmed Type alendronate [Fosamax] 70 mg PO WK 06/09/18 08/03/19 History amitriptyline 10 mg PO HS 06/09/18 08/03/19 History aspirin 81 mg PO DAILY 06/09/18 08/03/19 History atorvastatin 40 mg PO QAM 06/09/18 08/03/19 History baclofen 10 mg PO BID 06/09/18 08/03/19 History bupropion HCl [Wellbutrin XL] 150 mg PO DAILY 06/09/18 08/03/19 History cholecalciferol (vitamin D3) 2,000 unit PO DAILY 06/09/18 08/03/19 History [Vitamin D3] docusate sodium 100 mg PO BID PRN 06/09/18 08/03/19 History fentanyl [Duragesic] 50 mcg TOPICAL UD 06/09/18 08/03/19 History furosemide [Lasix] 20 mg PO QAM 06/09/18 08/03/19 History mometasone-formoterol [Dulera] 2 puff INHALATION BID 06/09/18 08/03/19 History montelukast [Singulair] 10 mg PO PM 06/09/18 08/03/19 History nitroglycerin [Nitrostat] 0.4 mg SUBLINGUAL UD PRN 06/09/18 08/03/19 History oxycodone-acetaminophen [Percocet] 1 tab PO Q8 06/09/18 08/03/19 History pantoprazole [Protonix] 40 mg PO BID 06/09/18 08/03/19 History potassium chloride [Klor-Con 10] 10 meq PO BID 06/09/18 08/03/19 History prednisone 10 mg PO UD 06/09/18 08/03/19 History tiotropium bromide [Spiriva with 1 dose INHALATION DAILY 06/09/18 08/03/19 History HandiHaler] ropinirole 1 mg PO HS 08/03/19 08/03/19 History Allergies Allergy/AdvReac Type Severity Reaction Status Date / Time aspirin Allergy Unknown Patient Verified 08/03/19 13:09 can take upto 81 mg of ASA not any higher- hives NSAIDS (Non-Steroidal Allergy Unknown hives Verified 08/03/19 13:09 Anti-Inflamma tramadol AdvReac Intermediate URINARY Verified 08/03/19 13:09 RETENTION Past Med/Surg History Medical History Acid reflux Cervical strain (Acute) Chest pain (Acute) Chronic low back pain COPD exacerbation (Acute) Near syncope (Inactive) Vertigo (Inactive) Surgical History Hx of tonsillectomy Family History Other Gallbladder disease Kidney stone Lung disease Social History Preferred Language: Guinean Feels Safe at Home: Yes Smoking Status: Former smoker Review of Systems A total of 10 systems reviewed and were otherwise negative Physical Exam Vital Signs Vital Signs - 24 hr 08/03/19 11:47 08/03/19 11:51 08/03/19 13:00 Temperature 37.1 C Temperature Source Oral Pulse Rate 79 73 80 Pulse Rate from SpO2 Sensor 73 Pulse Rhythm Regular Regular Respiratory Rate 18 9 L 16 Respiratory Effort / Characteristics Non-Labored Respiratory Depth Normal Respiratory Pattern Regular Blood Pressure 178/103 H 178/103 H Blood Pressure Mean 128 129 Pulse Oximetry 95 90 92 Oxygen Delivery Method Room Air Room Air Room Air Sepsis Recent Fever Within 48 Hours No Sepsis New/Unexplained Change in Mental Status No Sepsis Action Taken by Nursing No Action Required 08/03/19 13:10 08/03/19 13:31 08/03/19 14:01 Temperature Temperature Source Pulse Rate 75 84 85 Pulse Rate from SpO2 Sensor 76 83 84 Pulse Rhythm Respiratory Rate 11 L 13 18 Respiratory Effort / Characteristics Respiratory Depth Respiratory Pattern Blood Pressure 139/59 L 103/86 133/95 Blood Pressure Mean 96 89 117 Pulse Oximetry 92 90 Oxygen Delivery Method Room Air Sepsis Recent Fever Within 48 Hours Sepsis New/Unexplained Change in Mental Status Sepsis Action Taken by Nursing 08/03/19 15:01 08/03/19 15:13 Temperature Temperature Source Pulse Rate 83 83 Pulse Rate from SpO2 Sensor 83 Pulse Rhythm Respiratory Rate 22 22 Respiratory Effort / Characteristics Respiratory Depth Respiratory Pattern Blood Pressure 100/62 100/62 Blood Pressure Mean 76 Pulse Oximetry 91 91 Oxygen Delivery Method Room Air Room Air Sepsis Recent Fever Within 48 Hours Sepsis New/Unexplained Change in Mental Status Sepsis Action Taken by Nursing VITALS: Vitals are noted on the nurse's note and reviewed by myself. Vital signs stable. GENERAL: This is a 68-year-old obese white female, in no acute distress, nondiaphoretic, well-developed well-nourished. SKIN: There is an 18 cm avulsion/degloving type of injury overlying the patella on the left knee. The deep structures including tendon and patella are visible at the base of the wound. There is a mild amount of active bleeding, but no obvious vascular bleeding or significant hemorrhage. Sensation in the area of the laceration is intact. The skin was otherwise without rashes, erythema, edema, or bruising. There is no tenting of the skin. Capillary refill less than 2 seconds. HEAD: Normocephalic atraumatic. NECK: Supple without nuchal rigidity. No lymphadenopathy. No thyromegaly. Cervical spine is nontender. No JVD. HEART: Regular rate and rhythm without murmurs gallops or rubs. LUNGS: Mild wheezing throughout. No retractions or accessory muscle use. ABDOMEN: Positive bowel sounds x 4. Normal tympanic percussion. Soft, nontender, without masses or organomegaly. Alvarado sign negative. No guarding or rebound tenderness. MUSCULOSKELETAL: Decreased range of motion at the left knee due to the large gaping laceration. Strength 3/5 in the left lower extremity, limited due to pain. Tendon and bone visible at the base of the laceration. Unable to perform deep physical exam due to patient's pain at this time, so unclear whether or not the tendon is lacerated, but highly suspicious. Decreased flexion of the left lower extremity due to pain. No muscle atrophy, erythema, or edema noted. Full range of motion without joint tenderness in all extremities except as noted. No tenderness to palpation of except of the left lower extremity is noted. Strength 5/5 throughout except as noted. NEURO: Patient was alert and oriented to person place and time. Normal se nsation to light and sharp touch. No focal neurological deficits. Course The patient was seen and evaluated as above. IV access obtained, labs drawn. Patient medicated with IV fluids, Ancef, fentanyl, and Zofran. I discussed the case with my attending physician. He did see and evaluate the patient. Paged orthopedics. Imaging performed and reviewed by myself and radiologist as above. Labs reviewed by myself. I discussed the findings with the patient at bedside. I discussed the case with Konrad Horton PA-C with [facility]. He did agree to see and evaluate the patient. I discussed the case at bedside with Konrad during his evaluation. He will consult with the surgeon and the patient will be taken to the operating room for irrigation and repair. Please see orthopedics dictation regarding ongoing management care of this patient. Administered Medications Fentanyl Citrate (Fentanyl Citrate) 50 mcg IV Q15M PRN PRN Reason: Pain Stop: 08/17/19 12:34 Last Admin: 08/03/19 14:58 Dose: 50 mcg Documented by: [id number] Discontinued Medications Fentanyl Citrate (Fentanyl Citrate) 50 mcg IV NOW STA Stop: 08/03/19 12:24 Last Admin: 08/03/19 12:31 Dose: 50 mcg Documented by: [id number] Cefazolin Sodium 3,000 mg/ (Dextrose) 72.5 mls @ 145 mls/hr IV NOW STA Stop: 08/03/19 13:04 Last Infusion: 08/03/19 13:45 Dose: 0 mls/hr Documented by: [id number] Admin: 08/03/19 13:09 Dose: 145 mls/hr Documented by: [id number] Ondansetron HCl (Zofran) 4 mg IV NOW STA Stop: 08/03/19 12:25 Last Admin: 08/03/19 12:31 Dose: 4 mg Documented by: [id number] Medical Decision Making Differential Diagnosis syncope, dislocation, fracture, compression fracture, concussion with loss of consciousness, concussion without loss of consciousness, closed head injury, intracranial bleeding, contusion, abrasion, soft tissue injury, conpartment syndrome and rhabdomyolysis Medical Records Attestation: I reviewed the patient's medical records. Home Medications Current Medication List: was personally reviewed by me Laboratory Data Attestation: I reviewed the patient's lab results. No leukocytosis. Mild anemia with a hemoglobin of 11.6 hematocrit 36.6. Coags normal. Renal, hepatic function and electrolytes without significant abnormality. Blood glucose elevated at 141. Result diagrams: 08/03/19 12:43 08/03/19 12:43 Lab Results 08/03/19 08/03/19 08/03/19 Range/Units 12:43 12:43 12:43 WBC 9.53 (4.8-10.8) K/uL RBC 4.14 L (4.2-5.4) M/uL Hgb 11.6 L (12.0-16.0) g/dL Hct 36.6 L (37-47) % MCV 88.4 (80-100) fL MCH 28.0 (25-34) pg MCHC 31.7 L (32-36) g/dL RDW Std Deviation 53.0 H (36.4-46.3) fL RDW Coeff of Isak 16.4 H (11.5-14.5) % Plt Count 192 (130-400) K/uL MPV 11.7 H (7.4-10.4) fL Immature Gran % (Auto) 0.2 % Neut % (Auto) 79.1 % Lymph % (Auto) 12.3 % Bandera % (Auto) 6.9 % Eos % (Auto) 1.2 % Baso % (Auto) 0.3 % Immature Gran # (Auto) 0.02 (0.00-0.02) K/uL Neut # (Auto) 7.54 H (1.4-6.5) K/uL Lymph # (Auto) 1.17 L (1.2-3.4) K/uL Bandera # (Auto) 0.66 H (0.11-0.59) K/uL Eos # (Auto) 0.11 (0-0.5) K/uL Baso # (Auto) 0.03 (0-0.2) K/uL PT 10.3 (9.0-12.0) Seconds INR 1.0 (0.9-1.1) APTT 24.5 (21.0-31.0) Seconds PTT Ratio 0.9 Sodium 141 (136-145) mmol/L Potassium 4.3 (3.5-5.1) mmol/L Chloride 108 H (98-107) mmol/L Carbon Dioxide 29 (21-32) mmol/L Anion Gap 4.0 (3-11) BUN 11 (7-18) mg/dl Creatinine 0.80 (0.6-1.2) mg/dl Est Cr Clr Drug Dosing 82.1 ml/min Est GFR ( Amer) 87.8 Est GFR (Non-Af Amer) 75.8 BUN/Creatinine Ratio 13.1 (10-20) Glucose 141 H (70-99) mg/dl Calcium 8.7 (8.5-10.1) mg/dl Total Bilirubin 0.5 (0.2-1) mg/dl AST 13 L (15-37) U/L ALT 27 (12-78) U/L Alkaline Phosphatase 94 (45-117) U/L Total Protein 6.6 (6.4-8.2) gm/dl Albumin 3.2 L (3.4-5.0) gm/dl Globulin 3.4 (2.5-4.0) gm/dl Albumin/Globulin Ratio 0.9 (0.9-2) Imaging Data Radiologist's Impression: XR knee LT 1 or 2V routine HISTORY: 68 years-old Female laceration, fall acute left knee pain status post fall with soft tissue laceration COMPARISON: None available TECHNIQUE: 2 views of the left knee FINDINGS: Mildly demineralized appearance of the bones. Mild tricompartmental osteoarthritis. There is a large soft tissue defect of the anterior knee at the level of the patella. Extensive associated soft tissue swelling with areas of deep tissue air compatible with penetrating injury. No acute fracture, dislocation or opaque foreign body. Small joint effusion. Soft tissue calcifications are noted within the soft tissues posterior to the knee. Arterial calcifications also noted. IMPRESSION: 1. Soft tissue swelling with large soft tissue defect and deep tissue air of the anterior knee compatible with penetrating injury. 2. No acute fracture, dislocation or opaque foreign body. ACT 112: Negative or not required by law. The above report was generated using voice recognition software. It may contain grammatical, syntax or spelling errors. Electronically signed by: Naren Smith M.D. 08/03/2019 1:09 PM XR chest 1V portable CLINICAL HISTORY: Preoperative evaluation. COMPARISON STUDY: Chest radiograph June 09, 2018. FINDINGS: Lung volumes are normal. Lungs are clear. There is no pneumothorax or pleural effusion. Mild cardiomegaly is unchanged. Mediastinal contours are no rmal. There is no evidence for pulmonary edema. Opacity along the left heart border favors epicardial fat pad. IMPRESSION: 1. No acute findings. 2. Mild cardiomegaly. Electronically signed by: Jon Cormier M.D. 08/03/2019 1:46 PM ECG Data Attestation: I personally reviewed and interpreted this ECG as follows: Indication: other (pre-op) Rate (beats per minute): 76 Rhythm: normal sinus Findings: no ST depression, no T-wave inversion, no ST elevation, no acute ischemic change and no ectopy Comparison ECG Date: from (06/09/18) Change: no significant change (MO interval has decreased) Blood Pressure Blood Pressure Findings: Elevated blood pressure Blood Pressure Disposition: elevated BP felt to be situational MDM Narrative This 68-year-old female patient presents the emergency department today for evaluation of a degloving type of laceration of the left knee. This does appear to extend into the joint. The patient's pain was managed while in the emergency department with IV fentanyl. Baseline labs obtained and preop chest x-ray and EKG performed. The patient will be taken to the operating room by orthopedics for washout of the wound and repair. Please see orthopedic dictation regarding ongoing management care of this patient. The chart was completed utilizing [employer] voice recognition software. Grammatical errors, random word insertions, pronoun errors, and incomplete sentences are an occasional consequence of this system due to software limitations, ambient noise, and hardware issues. Any formal questions or concerns about the content, text, or information contained within the body of this dictation should be directly addressed to the provider for clarification. Impression & Plan Degloving injury of left lower leg Discharge Plan Visit Data *Final* Discharge Date/Time: 08/03/19 15:13 Chief Complaint: Fall ED Provider: John Arrington ED Midlevel Provider: Jerrica Gomez Discharge Problem: Degloving injury of left lower leg Patient Disposition: Admitted As Inpatient Condition: Good Discharge Instructions Interventions: ED Discharge Assessment Last Done: 08/03/19 15:13
--- NOTE | 2019-08-03 13:48 | XRay Report ---
XR chest 1V portable CLINICAL HISTORY: Preoperative evaluation. COMPARISON STUDY: Chest radiograph June 09, 2018. FINDINGS: Lung volumes are normal. Lungs are clear. There is no pneumothorax or pleural effusion. Mil d cardiomegaly is unchanged. Mediastinal contours are normal. There is no evidence for pulmonary da a. Opacity along the left heart border favors epicardial fat pad. IMPRESSION: 1. No acute findings. 2. Mild cardiomegaly. Electronically signed by: Jon Cormier M.D. 08/03/2019 1:46 PM
--- NOTE | 2019-08-03 14:12 | Emergency Department Note ---
ED Visit Note Patient was seen by our PA/FARMHAND. I was involved in the patient's care and did evaluate the patient myself. I was involved in the care throughout the ER stay. The patient has a significant soft tissue injury to her left anterior knee. The underlying knee joint structures and patella are exposed. There appears to be some patellar injury. She is going to require orthopedic intervention and likely OR work. Lab work and imaging has been ordered. Antibiotics have been given. The orthopedic group has been consulted. .
--- NOTE | 2019-08-03 14:34 | History & Physical Report ---
Date of Service August 03, 2019 Assessment & Plan (1) Degloving injury of left lower leg: Patient will need irrigation debridement and repair of her laceration/degloving injury. This is been discussed with the patient in detail and she is in agreement to have her wound taken care of. Dr. Lane is present and will take the patient to the operating room here shortly for the above-noted I&D and repair. History of Present Illness Chief Complaint: Left knee pain Primary Care Provider: Mariano Torres DO Patient is a 68-year-old female who was walking across some carpet today and ended up tripping. She denies any shortness of breath, chest pain, lightheadedness prior to or after the fall. She did not hit her head. She did not lose consciousness. She had immediate pain in her left knee and noticed a large laceration across the knee itself. She was able to get herself up off of the floor however her ccie from her [employer] brought her to the emergency room to be seen by the staff. She was seen and x-rays were taken. X-rays are showing possibility of gas within the joint of the left knee along with noted swelling of the left knee. After examination, we were called noting that during examination they could see open tendon of the left knee and possibly bone. Patient is currently lying in bed sitting up and has some pain off and on whenever trying to examine her wound. Otherwise she is comfortable. She has no other complaints at this time. Allergies Allergy/AdvReac Type Severity Reaction Status Date / Time aspirin Allergy Unknown Patient Verified 08/03/19 13:09 can take upto 81 mg of ASA not any higher- hives NSAIDS (Non-Steroidal Allergy Unknown hives Verified 08/03/19 13:09 Anti-Inflamma tramadol AdvReac Intermediate URINARY Verified 08/03/19 13:09 RETENTION Home Medications Home Medications Medication Instructions Recorded Confirmed Type alendronate [Fosamax] 70 mg PO WK 06/09/18 08/03/19 History amitriptyline 10 mg PO HS 06/09/18 08/03/19 History aspirin 81 mg PO DAILY 06/09/18 08/03/19 History atorvastatin 40 mg PO QAM 06/09/18 08/03/19 History baclofen 10 mg PO BID 06/09/18 08/03/19 History bupropion HCl [Wellbutrin XL] 150 mg PO DAILY 06/09/18 08/03/19 History cholecalciferol (vitamin D3) 2,000 unit PO DAILY 06/09/18 08/03/19 History [Vitamin D3] docusate sodium 100 mg PO BID PRN 06/09/18 08/03/19 History fentanyl [Duragesic] 50 mcg TOPICAL UD 06/09/18 08/03/19 History furosemide [Lasix] 20 mg PO QAM 06/09/18 08/03/19 History mometasone-formoterol [Dulera] 2 puff INHALATION BID 06/09/18 08/03/19 History montelukast [Singulair] 10 mg PO PM 06/09/18 08/03/19 History nitroglycerin [Nitrostat] 0.4 mg SUBLINGUAL UD PRN 06/09/18 08/03/19 History oxycodone-acetaminophen [Percocet] 1 tab PO Q8 06/09/18 08/03/19 History pantoprazole [Protonix] 40 mg PO BID 06/09/18 08/03/19 History potassium chloride [Klor-Con 10] 10 meq PO BID 06/09/18 08/03/19 History prednisone 10 mg PO UD 06/09/18 08/03/19 History tiotropium bromide [Spiriva with 1 dose INHALATION DAILY 06/09/18 08/03/19 History HandiHaler] ropinirole 1 mg PO HS 08/03/19 08/03/19 History Past Med/Surg History Medical History (Updated 08/03/19 @ 14:37 by Konrad Horton PA-C) Acid reflux Cervical strain (Acute) Chest pain (Acute) Chronic low back pain COPD exacerbation (Acute) Near syncope (Inactive) Vertigo (Inactive) Surgical History Hx of tonsillectomy Family History Other Gallbladder disease Kidney stone Lung disease Social History Preferred Language: Sami Feels Safe at Home: Yes Smoking Status: Former smoker Review of Systems Review of Systems: No recent fevers, chills, recent cold or flu symptoms. She states that she gets short of breath on exertion and uses oxygen at nighttime at home. She has had no recent exacerbations of her COPD/asthma. She states that she has had twinges of chest pain in the past but no diagnosis of heart disease and no history of myocardial infarction. She states that she does have valvular disease of some kind but she cannot remember what type. No recent chest pressure, irregular heartbeat. H/O Pneumonia in the past. Denies hemoptysis, bronchitis. Above-noted history of COPD/asthma on home O2. States that she has GERD on occasion. Denies any unusual nausea, vomiting, diarrhea. Denies hematemesis, melena, hematochezia, hepatitis, peptic ulcer disease. No history of gynecological issues and denies any history of hematuria, pyuria, dysuria, or frequent urinary tract infections. No history of renal calculi. No history of CVA or TIA. Some history of vertigo in the past. No history of seizure disorder. Denies history of migraine headaches. Physical Exam Constitutional: WD/WN, vitals as above + obese Eyes: PERRL, conjunctivae normal, anicteric sclerae ENMT: external ear and nose normal, oropharynx normal Neck: normal visual inspection Respiratory: She has some mild wheezing in both lung moe. She is in no acute distress and does not appear to be using accessory muscles for breathing. She denies being short of breath currently Cardiovascular: Rate/Rhythm: regular rate and regular rhythm Gastrointestinal (Abdomen): normal bowel sounds, soft, nontender, no hepatosplenomegaly Musculoskeletal: On examination of her left knee, she has an approximate 18 cm horizontal laceration that goes from the medial aspect of the knee joint to the lateral aspect of the knee joint anteriorly. She has a fair amount of bleeding noted from this. I can see muscle and tendon however with further examination the wound causes her moderate pain. She has good range of motion of her ankle and toe of the left leg and has good sensation. No discomfort in the posterior aspect of the knee. Calves are soft and nontender. Right lower extremity is within normal limits and has good range of motion at the hip knee and ankle. Upper extremities are unaffected at this time. She has decreased range of motion of the knee obvious lead to her laceration, but otherwise has no gross motor or sensory loss at this time. Distal pulses are 2/4 bilaterally. Skin: no rashes, warm and dry Results & Data Vital Signs (Past 12 Hours) Vital Signs Temp Pulse Resp BP Pulse Ox 08/03/19 13:31 84 13 103/86 92 08/03/19 13:10 75 11 L 139/59 L 08/03/19 13:00 80 16 92 08/03/19 11:51 73 9 L 178/103 H 90 08/03/19 11:47 37.1 C 79 18 178/103 H 95 Laboratory Results Laboratory Results WBC 9.53 K/uL (4.8-10.8) 08/03/19 12:43 RBC 4.14 M/uL (4.2-5.4) L 08/03/19 12:43 Hgb 11.6 g/dL (12.0-16.0) L 08/03/19 12:43 Hct 36.6 % (37-47) L 08/03/19 12:43 MCV 88.4 fL (80-100) 08/03/19 12:43 MCH 28.0 pg (25-34) 08/03/19 12:43 MCHC 31.7 g/dL (32-36) L 08/03/19 12:43 RDW Std Deviation 53.0 fL (36.4-46.3) H 08/03/19 12:43 RDW Coeff of Isak 16.4 % (11.5-14.5) H 08/03/19 12:43 Plt Count 192 K/uL (130-400) 08/03/19 12:43 MPV 11.7 fL (7.4-10.4) H 08/03/19 12:43 Immature Gran % (Auto) 0.2 % 08/03/19 12:43 Neut % (Auto) 79.1 % 08/03/19 12:43 Lymph % (Auto) 12.3 % 08/03/19 12:43 [place] % (Auto) 6.9 % 08/03/19 12:43 Eos % (Auto) 1.2 % 08/03/19 12:43 Baso % (Auto) 0.3 % 08/03/19 12:43 Immature Gran # (Auto) 0.02 K/uL (0.00-0.02) 08/03/19 12:43 Neut # (Auto) 7.54 K/uL (1.4-6.5) H 08/03/19 12:43 Lymph # (Auto) 1.17 K/uL (1.2-3.4) L 08/03/19 12:43 [place] # (Auto) 0.66 K/uL (0.11-0.59) H 08/03/19 12:43 Eos # (Auto) 0.11 K/uL (0-0.5) 08/03/19 12:43 Baso # (Auto) 0.03 K/uL (0-0.2) 08/03/19 12:43 PT 10.3 Seconds (9.0-12.0) 08/03/19 12:43 INR 1.0 (0.9-1.1) 08/03/19 12:43 APTT 24.5 Seconds (21.0-31.0) 08/03/19 12:43 PTT Ratio 0.9 08/03/19 12:43 Sodium 141 mmol/L (136-145) 08/03/19 12:43 Potassium 4.3 mmol/L (3.5-5.1) 08/03/19 12:43 Chloride 108 mmol/L (98-107) H 08/03/19 12:43 Carbon Dioxide 29 mmol/L (21-32) 08/03/19 12:43 Anion Gap 4.0 (3-11) 08/03/19 12:43 BUN 11 mg/dl (7-18) 08/03/19 12:43 Creatinine 0.80 mg/dl (0.6-1.2) 08/03/19 12:43 Est Cr Clr Drug Dosing 82.1 ml/min 08/03/19 12:43 Est GFR ( Amer) 87.8 08/03/19 12:43 Est GFR (Non-Af Amer) 75.8 08/03/19 12:43 BUN/Creatinine Ratio 13.1 (10-20) 08/03/19 12:43 Glucose 141 mg/dl (70-99) H 08/03/19 12:43 Calcium 8.7 mg/dl (8.5-10.1) 08/03/19 12:43 Total Bilirubin 0.5 mg/dl (0.2-1) 08/03/19 12:43 AST 13 U/L (15-37) L 08/03/19 12:43 ALT 27 U/L (12-78) 08/03/19 12:43 Alkaline Phosphatase 94 U/L (45-117) 08/03/19 12:43 Total Protein 6.6 gm/dl (6.4-8.2) 08/03/19 12:43 Albumin 3.2 gm/dl (3.4-5.0) L 08/03/19 12:43 Globulin 3.4 gm/dl (2.5-4.0) 08/03/19 12:43 Albumin/Globulin Ratio 0.9 (0.9-2) 08/03/19 12:43 Diagnostic Findings Patient: MAYRA BYRNE Date: 08/03/19 MR#: [id number]: [address] Acct ID:[id number]: Date: 1950[facility] Zip: [place] [id number] Age: 68Location: ED Sex: F Room/Bed: Att Phy:Diagnosis: FALL Caity Phy: Mariano Torres, DOService Date: 08/03/19 Fam Phy:Interpreting Phy: Corby Smith Admit Phy: Ordering Phy: Jerrica Gomez PA-C cc: ~ XR knee LT 1 or 2V routine HISTORY: 68 years-old Female laceration, fall acute left knee pain status post fall with soft tissue laceration COMPARISON: None available TECHNIQUE: 2 views of the left knee FINDINGS: Mildly demineralized appearance of the bones. Mild tricompartmental osteoarthritis. There is a large soft tissue defect of the anterior knee at the level of the patella. Extensive associated soft tissue swelling with areas of deep tissue air compatible with penetrating injury. No acute fracture, dislocation or opaque foreign body. Small joint effusion. Soft tissue calcifications are noted within the soft tissues posterior to the knee. Arterial calcifications also noted. IMPRESSION: 1. Soft tissue swelling with large soft tissue defect and deep tissue air of the anterior knee compatible with penetrating injury. 2. No acute fracture, dislocation or opaque foreign body. ACT 112: Negative or not required by law. The above report was generated using voice recognition software. It may contain grammatical, syntax or spelling errors. Electronically signed by: Naren Smith M.D. 08/03/2019 1:09 PM
[2019-08-03] MEDS ORDERED: ALUMINUM/MAGNESIUM SUSP 30 ML UDC PO PRN (14:39)
[2019-08-03] MEDS ORDERED: ONDANSETRON INJ 2 MG/ML 2 ML VIAL IV PRN ×2 (14:39→15:48)
[2019-08-03] MEDS ORDERED: BACITRACIN INJ 50,000 UNIT VIAL ONE ×2 (14:43→15:57)
[2019-08-03] MEDS ORDERED: MIDAZOLAM HCL 1 MG/ML 2ML VIAL ONE (14:48)
[2019-08-03] MEDS ORDERED: fentaNYL citrate 100 MCG/2 ML VIAL ONE ×2 (14:48→16:15)
--- NOTE | 2019-08-03 15:23 | History & Physical Bridge Note ---
Date of Service August 03, 2019 History & Physical Bridge Note I have examined the patient, reviewed the History & Physical and in the interval since the performance of the History & Physical I have noted the following changes of clinical significance: no changes noted
[2019-08-03] MEDS ORDERED: CEFAZOLIN 2,000 MG/15 ML IV PUSH IV ONE (15:39)
[2019-08-03] MEDS ORDERED: ATROPINE SULFATE 0.1 MG/ML 10ML SYR IV PRN (15:48)
[2019-08-03] MEDS ORDERED: PROMETHAZINE HCL 6.25 MG in SODIUM CHLORIDE 0.9% 50 ML IV PRN (15:48)
[2019-08-03] MEDS ORDERED: ePHEDrine sulfate 50 MG/ML AMP IV PRN (15:48)
--- NOTE | 2019-08-03 15:48 | Anesthesiology Consultation ---
Date of Service August 03, 2019 Severe COPD Mitral regurg Morbid Obesity JEMIMA Chronic steroids Assessment & Plan (1) Encounter for pre-operative examination: Chart Review Chart Review: Acceptable Risk for Surgery and Patient NOT seen in Pre Admission Testing Consults Requested none ASA ASA4 Proposed Anesthesia Anesthesia Type: General Risk / Benefits Reviewed With: PT / POA / Parent / Guardian, Accepts Plan and Informed Consent Obtained History Surgery Operation Date: 08/03/19 13:45 Proposed Procedures p Left Knee Degloving - David Lane DO Height/Weight Height: 5 ft 3 in Weight: 114.6 kg Allergies Allergy/AdvReac Type Severity Reaction Status Date / Time aspirin Allergy Unknown Patient Verified 08/03/19 13:09 can take upto 81 mg of ASA not any higher- hives NSAIDS (Non-Steroidal Allergy Unknown hives Verified 08/03/19 13:09 Anti-Inflamma tramadol AdvReac Intermediate URINARY Verified 08/03/19 13:09 RETENTION Medications Home Medications Medication Instructions Recorded Confirmed Last Taken alendronate [Fosamax] 70 mg PO WK 06/09/18 08/03/19 08/03/19 amitriptyline 10 mg PO HS 06/09/18 08/03/19 08/02/19 aspirin 81 mg PO DAILY 06/09/18 08/03/19 08/03/19 atorvastatin 40 mg PO QAM 06/09/18 08/03/19 08/03/19 baclofen 10 mg PO BID 06/09/18 08/03/19 08/03/19 bupropion HCl [Wellbutrin XL] 150 mg PO DAILY 06/09/18 08/03/19 08/03/19 cholecalciferol (vitamin D3) 2,000 unit PO DAILY 06/09/18 08/03/19 08/03/19 [Vitamin D3] docusate sodium 100 mg PO BID PRN 06/09/18 08/03/19 08/03/19 fentanyl [Duragesic] 50 mcg TOPICAL UD 06/09/18 08/03/19 08/03/19 furosemide [Lasix] 20 mg PO QAM 06/09/18 08/03/19 08/03/19 mometasone-formoterol [Dulera] 2 puff INHALATION BID 06/09/18 08/03/19 08/03/19 montelukast [Singulair] 10 mg PO PM 06/09/18 08/03/19 08/02/19 nitroglycerin [Nitrostat] 0.4 mg SUBLINGUAL UD PRN 06/09/18 08/03/19 Unknown oxycodone-acetaminophen [Percocet] 1 tab PO Q8 06/09/18 08/03/19 08/03/19 pantoprazole [Protonix] 40 mg PO BID 06/09/18 08/03/19 08/03/19 potassium chloride [Klor-Con 10] 10 meq PO BID 06/09/18 08/03/19 08/03/19 prednisone 10 mg PO UD 06/09/18 08/03/19 Unknown tiotropium bromide [Spiriva with 1 dose INHALATION DAILY 06/09/18 08/03/19 08/03/19 HandiHaler] ropinirole 1 mg PO HS 08/03/19 08/03/19 08/02/19 Active Medications Generic Name Dose Route Start Last Admin Trade Name Freq PRN Reason Stop Dose Admin Fentanyl Citrate 50 mcg 08/03/19 12:35 08/03/19 14:58 Fentanyl Citrate IV 08/17/19 12:34 50 mcg Q15M PRN Administration Pain NPO Date Last Intake of Fluids: 08/03/19 Time Last Intake of Fluids: 09:00 Date Last Intake of Solids: 08/02/19 Time Last Intake of Solids: 21:00 Past Medical History Medical History Acid reflux Cervical strain (Acute) Chest pain (Acute) Chronic low back pain COPD exacerbation (Acute) Near syncope (Inactive) Vertigo (Inactive) Exercise / Class Metabolic Activity II 4-5 Yardwork/Stairs/Walk up hill Past Family History Family History Other Gallbladder disease Kidney stone Lung disease Past Surgical History Surgical History Hx of tonsillectomy Past Anesthesia History No Hx of Anesthesia Complications and No Family Hx of Anesthesia Complications History of PONV No Hx of PONV and No Hx of Motion Sickness Social History Smoking Status: Former smoker Physical Exam Vital Signs Last Vital Signs Temp 37.3 C 08/03/19 15:23 Pulse 84 08/03/19 15:23 Resp 18 08/03/19 15:23 BP 104/71 08/03/19 15:23 Pulse Ox 92 08/03/19 15:23 Constitutional + morbidly obese ENMT Mouth: + edentulous Thyromental Distance: > or= 3.5 Finger Breadths Mallampati Class: III Neck normal visual inspection, + short neck and + thick neck Respiratory normal respiratory effort Auscultation: + diminished lung sounds (bilaterally with increased expiratory phase) Cardiovascular Rate/Rhythm: regular rate and regular rhythm Psychiatric Orientation: alert Testing Laboratory Results 08/03/19 12:43 08/03/19 12:43 PT 10.3 Seconds (9.0-12.0) 08/03/19 12:43 INR 1.0 (0.9-1.1) 08/03/19 12:43 APTT 24.5 Seconds (21.0-31.0) 08/03/19 12:43 Electrocardiogram Date: 08/03/19 Findings: + NSR @ Chest X-Ray Date: 08/03/19 Findings: + NAD
[2019-08-03] MEDS ORDERED: SUCCINYLCHOLINE CHLORIDE 20 MG/ML 10 ML VIAL ONE (15:58)
[2019-08-03] MEDS ORDERED: PROPOFOL IV EMULSION 10 MG/ML 20 ML VIAL IV ONE (15:58)
[2019-08-03] MEDS ORDERED: ONDANSETRON INJ 2 MG/ML 2 ML VIAL ONE (15:58)
--- NOTE | 2019-08-03 16:34 | Operative Report ---
Post Operative Report Pre & Post Diagnosis Operation Date: 08/03/19 13:45 Pre-Op Diagnosis: Degloving injury of left lower leg Post-Op Diagnosis: Degloving injury of left lower leg I identified the patient and participated in the time-out.: Yes Procedure Operation Date: 08/03/19 13:45 Actual Procedures p Irrigation, debridement, and repair of degloved left knee 17 cm degloved- horizontal laceration to the inferior degloved area extra-articular wound David Lane DO Surgeon David Lane DO Cylinder Block Mechanic Konrad HEREDIA Estimated Blood Loss 20 Findings Consistent with Post-Op Diagnosis Patient presents after having had a fall landing on her left anterior knee sustaining 17 cm horizontal degloving injury down to the extensor mechanism without the disruption into the joint with an inferior degloved area approximately 6 cm under the skin with some necrosis of skin proximal skin wounds very poor quality of tissue Specimens None Drains Medium bore Hemovac Anesthesia Type General Complications none Disposition Accompanied Patient To Recovery: No Disposition: Recovery Room Indications Patient presents as a 60-year-old white female for having a fall sustaining an horizontal degloving wound of her anterior knee Description of Procedure After proper prepping and draping the left lower extremity 9 L of bacitracin impregnated sterile saline solution were washed through the knee wound hemostasis was obtained the wound did not extend through the extensor mechanism or capsule into the intra-articular portion of the joint there was market friability to the tissue though patient is been long-term prednisone with a very poor quality tissue the deep wound was closed over 2-0 Vicryl over medium bore Hemovac this the subcu and skin was closed with 2-0 Vicryl the skin was closed with a combination of skin wilber and 3-0 nylon sterile compressive dressings placed was in the immobilizer patient taken recovery in stable condition please note YAN Valentine was necessary prepping draping retraction wound closure of deep fascia subcu and skin I attest to the content of the Intraoperative Record and any orders documented therein. Any exceptions are noted below.
[2019-08-03] MEDS ORDERED: ALBUTEROL HFA INHALER 8.5 GM ONE (16:52)
[2019-08-03] MEDS: fentaNYL citrate 100 MCG/2 ML VIAL IV PRN ×4 (16:55→17:10)
[2019-08-03] MEDS: HYDROmorphone INJ 1 MG/ML SYRINGE IV PRN ×6 (17:15→17:40)
--- NOTE | 2019-08-03 17:45 | Anesthesiology Progress Note ---
Date of Service August 03, 2019 Anesthesia Post Procedure Vital Signs Vital Signs: Temp Pulse Pulse Pulse Resp BP BP 08/03/19 17:40 76 20 132/80 08/03/19 17:36 79 12 08/03/19 17:35 80 16 113/67 08/03/19 17:31 82 14 08/03/19 17:30 77 13 125/78 08/03/19 17:27 79 14 08/03/19 17:26 77 12 146/91 H 08/03/19 17:25 84 13 08/03/19 17:22 84 13 145/51 H 08/03/19 17:20 85 14 08/03/19 17:16 84 16 161/78 H 08/03/19 17:15 82 17 08/03/19 17:11 89 14 107/69 08/03/19 17:10 88 14 08/03/19 17:06 84 14 08/03/19 17:05 81 87 13 139/82 139/82 08/03/19 17:01 79 13 08/03/19 17:00 80 12 121/61 08/03/19 16:55 87 14 132/72 08/03/19 16:48 97.5 F L 86 16 105/79 08/03/19 15:23 99.1 F 84 18 104/71 08/03/19 15:13 83 22 100/62 08/03/19 15:01 83 22 100/62 08/03/19 14:01 85 18 133/95 08/03/19 13:31 84 13 103/86 08/03/19 13:10 75 11 L 139/59 L 08/03/19 13:00 80 16 08/03/19 11:51 73 9 L 178/103 H 08/03/19 11:47 98.8 F 79 18 178/103 H Pulse Ox 08/03/19 17:40 96 08/03/19 17:36 94 18 17:35 98 08/03/19 17:31 97 08/03/19 17:30 98 08/03/19 17:27 100 08/03/19 17:26 99 18 17:25 99 08/03/19 17:22 96 08/03/19 17:20 97 08/03/19 17:16 99 08/03/19 17:15 97 08/03/19 17:11 96 08/03/19 17:10 95 08/03/19 17:06 100 08/03/19 17:05 100 08/03/19 17:01 99 08/03/19 17:00 100 08/03/19 16:55 94 08/03/19 16:48 97 08/03/19 15:23 92 08/03/19 15:13 91 08/03/19 15:01 91 08/03/19 14:01 90 08/03/19 13:31 92 08/03/19 13:10 08/03/19 13:00 92 08/03/19 11:51 90 08/03/19 11:47 95 Pain Intensity Left Knee: Pain Intensity: 8 Transfer of Care Handoff Completed per policy Notes Mental Status: alert / awake / arousable and participated in evaluation Patient Amnestic to Procedure: Yes Nausea / Vomiting: adequately controlled Pain: adequately controlled Airway Patency, RR, SpO2: stable & adequate BP & HR: stable & adequate Hydration State: stable & adequate Anesthetic Complications: no major complications apparent and Pt Satisfied with anesthetic care
[2019-08-03] MEDS ORDERED: bisacodyL 10 MG SUPP PR PRN (18:24)
[2019-08-03] MEDS ORDERED: SODIUM CHLORIDE 0.9% 1000ML 1,000 ML IV SCH (18:24)
[2019-08-03] MEDS ORDERED: MAGNESIUM HYDROXIDE SUSP 30 ML UDC PO PRN (18:24)
[2019-08-03] MEDS ORDERED: NITROGLYCERIN SL 0.4 MG/TAB TAB SL PRN (18:24)
[2019-08-03] MEDS ORDERED: NALOXONE HCL 0.4 MG/1 ML VIAL/CARP IV PRN (18:24)
[2019-08-03] MEDS: SODIUM CHLORIDE 0.9% 1000ML 1,000 ML IV SCH ×2 (19:26→19:36)
[2019-08-03] MEDS: OXYCODONE HCL IR 5 MG TAB (IMMEDIATE RELEASE) PO PRN ×2 (19:26→19:57)
[2019-08-03] MEDS ORDERED: GLUCOSE 10 TABS/TUBE PO PRN (20:03)
[2019-08-03] MEDS ORDERED: DEXTROSE 50% 50 ML SYRINGE IV PRN (20:03)
[2019-08-03] MEDS ORDERED: GLUCAGON FOR INJ 1 MG VIAL SQ PRN (20:03)
[2019-08-03] MEDS ORDERED: CARBOHYDRATES FOR HYPOGLYCEMIA PO PRN (20:03)
[2019-08-03] MEDS ORDERED: GLUCOSE 40% GEL 15 GM TUBE PO PRN (20:03)
--- NOTE | 2019-08-03 20:19 | Hospitalist Consultation ---
Date of Consultation August 03, 2019 Assessment & Plan (1) Degloving injury of left lower leg: -patient presented to the ED after suffering a mechanical fall at home which resulted in a large laceration/degloving injury to the left knee -s/p irrigation, debridement, and repair of degloved left knee laceration - activity and wound care orders as per ortho - pain control with bowel regimen - PT/OT (2) Diabetes mellitus type 2, diet-controlled: -hgb a1c 7.2 05/2019 -currently not on any medications at home -Novolog per protocol while hospitalized -follow up with PCP (3) COPD (chronic obstructive pulmonary disease): -no signs of acute exacerbation -continue home inhalers (4) HTN (hypertension): -BP controlled -continue Losartan (5) Acid reflux: -continue PPI (6) DVT prophylaxis: -SCDs as per ortho Thank you for this consultation. We will follow the patient with you during their hospital stay. You can reach a member of the [place] [facility] Hospitalist Team 09/03 via pager @ [phone]. Supervising Physician Co-Signing Physician Notes Pt was seen and examined. Agreed with Eduarda MCCLENDON exam, assessment and plan. 68 year old female with PMH of diabetes, COPD, HTN, obesity present to the ER for degloving left knee laceration after falling on the carpet. S/P irrigation, debridement, and repair of degloved left knee laceration today by Dr. Lane. No post op complications. Continue pain management. PT/OT. Fall precaution. Monitor CBC. MD Timothy History of Present Illness Reason for Consultation: Post Op Medical Management Requesting Physician: Dr. Lane Attending Physician: Dr. Aguirre History of Present Illness 68 year old female who is s/p irrigation, debridement, and repair of degloved left knee laceration today by Dr. Lane. Patient tripped over a carpet in her home and suffered the injury. Fall seems to be mechanical. Patient denies any preceding lightheadedness, dizziness, or syncopal event. Reports she otherwise has been feeling well recently. Post operatively, patient reports she is having pain and nausea. She has had a couple of episodes of vomiting. No abdominal pain. Denies chest pain and shortness of breath. Allergies Allergy/AdvReac Type Severity Reaction Status Date / Time aspirin Allergy Unknown Patient Verified 12/18/19 13:09 can take upto 81 mg of ASA not any higher- hives NSAIDS (Non-Steroidal Allergy Unknown hives Verified 08/03/19 13:09 Anti-Inflamma tramadol AdvReac Intermediate URINARY Verified 08/03/19 13:09 RETENTION Home Medications Home Medications Medication Instructions Recorded Confirmed Type alendronate [Fosamax] 70 mg PO WK 06/09/18 08/03/19 History amitriptyline 10 mg PO HS 06/09/18 08/03/19 History aspirin 81 mg PO DAILY 06/09/18 08/03/19 History atorvastatin 40 mg PO QAM 06/09/18 08/03/19 History baclofen 10 mg PO BID 06/09/18 08/03/19 History bupropion HCl [Wellbutrin XL] 150 mg PO DAILY 06/09/18 08/03/19 History cholecalciferol (vitamin D3) 2,000 unit PO DAILY 06/09/18 08/03/19 History [Vitamin D3] docusate sodium 100 mg PO BID PRN 06/09/18 08/03/19 History fentanyl [Duragesic] 50 mcg TOPICAL UD 06/09/18 08/03/19 History furosemide [Lasix] 20 mg PO QAM 06/09/18 08/03/19 History mometasone-formoterol [Dulera] 2 puff INHALATION BID 06/09/18 08/03/19 History montelukast [Singulair] 10 mg PO PM 06/09/18 08/03/19 History nitroglycerin [Nitrostat] 0.4 mg SUBLINGUAL UD PRN 06/09/18 08/03/19 History oxycodone-acetaminophen [Percocet] 1 tab PO Q6H PRN 06/09/18 08/03/19 History pantoprazole [Protonix] 40 mg PO BID 06/09/18 08/03/19 History potassium chloride [Klor-Con 10] 10 meq PO BID 06/09/18 08/03/19 History prednisone 10 mg PO UD 06/09/18 08/03/19 History tiotropium bromide [Spiriva with 1 dose INHALATION DAILY 06/09/18 08/03/19 History HandiHaler] ropinirole 1 mg PO HS 08/03/19 08/03/19 History Patient History Medical History Acid reflux Chronic low back pain COPD (chronic obstructive pulmonary disease) Diabetes mellitus type 2, diet-controlled Dyslipidemia HTN (hypertension) Nocturnal hypoxia Non-rheumatic aortic stenosis Osteoarthritis RLS (restless legs syndrome) Spinal stenosis Vertigo (Inactive) Surgical History History of cataract surgery Hx of tonsillectomy Family History Mother Breast cancer Social History Preferred Language: Lao Communication Ability: Effective Toe Closing Machine Tender Required: No Beliefs That Will Affect Care: [employer] Beliefs: [employer] Current Living Situation: Family Current Living Situation Comment: lives with son and daughter Other Information That Helps Us Care for You: No Feels Safe at Home: Yes Safety Concerns: Feels Safe At This Time Smoking Status: Former smoker Smoking End Date: 2013 ; Hx Alcohol Use: Yes Alcohol type: wine Hx Substance Use: No Review of Systems Review of Systems: ROS per HPI, all other systems reviewed and negative Physical Exam Constitutional: WD/WN, vitals as above + obese; no acute distress Eyes: PERRL, conjunctivae normal, anicteric sclerae ENMT: external ear and nose normal, oropharynx normal Respiratory: normal respiratory effort, lungs clear to auscultation Cardiovascular: Rate/Rhythm: regular rate and regular rhythm Vessels: normal peripheral pulses Extremities: no edema Gastrointestinal (Abdomen): normal bowel sounds, soft, nontender, no hepatosplenomegaly Musculoskeletal: no cyanosis or clubbing, extremities motor strength 5/5 s/p left knee surgery, CSM checks intact to LLE, surgical dressing in place, drain in place draining bloody drainage Skin: no rashes, warm and dry Neurologic: PERRL, EOMI, accommodation nl, no face palsy, no dysarthria Psychiatric: A+Ox3, euthymic affect Results & Data Vital Signs (Past 12 Hours) Vital Signs Temp Pulse Pulse Pulse Resp BP BP 08/03/19 19:38 36.5 C 75 16 141/71 H 08/03/19 19:05 36.4 C L 78 20 133/64 08/03/19 18:32 36.8 C 77 14 137/60 08/03/19 18:16 79 19 140/68 08/03/19 18:15 75 20 08/03/19 18:11 70 12 145/68 H 08/03/19 18:10 79 17 08/03/19 18:07 70 14 08/03/19 18:06 75 10 L 137/47 L 08/03/19 18:05 73 26 H 08/03/19 18:01 71 14 08/03/19 18:00 70 12 144/59 H 08/03/19 17:56 74 14 08/03/19 17:55 76 18 147/73 H 08/03/19 17:54 36.6 C 08/03/19 17:52 69 14 08/03/19 17:51 69 16 113/76 08/03/19 17:50 79 13 08/03/19 17:46 77 14 08/03/19 17:45 73 14 137/62 08/03/19 17:41 78 15 08/03/19 17:40 76 20 132/80 08/03/19 17:36 79 12 08/03/19 17:35 80 16 113/67 08/03/19 17:31 82 14 08/03/19 17:30 77 13 125/78 08/03/19 17:27 79 14 08/03/19 17:26 77 12 146/91 H 08/03/19 17:25 84 13 08/03/19 17:22 84 13 145/51 H 08/03/19 17:20 85 14 08/03/19 17:16 84 16 161/78 H 08/03/19 17:15 82 17 08/03/19 17:11 89 14 107/69 08/03/19 17:10 88 14 08/03/19 17:06 84 14 08/03/19 17:05 81 87 13 139/82 139/82 08/03/19 17:01 79 13 08/03/19 17:00 80 12 121/61 08/03/19 16:55 87 14 132/72 08/03/19 16:48 36.4 C L 86 16 105/79 08/03/19 15:23 37.3 C 84 18 104/71 08/03/19 15:13 83 22 100/62 08/03/19 15:01 83 22 100/62 18 14:01 85 18 133/95 1819 13:31 84 13 103/86 08/03/19 13:10 75 11 L 139/59 L 08/03/19 13:00 80 16 08/03/19 11:51 73 9 L 178/103 H 08/03/19 11:47 37.1 C 79 18 178/103 H Pulse Ox 08/03/19 19:38 96 18 19:05 96 08/03/19 18:32 97 18 18:16 91 08/03/19 18:15 97 08/03/19 18:11 91 08/03/19 18:10 98 08/03/19 18:07 91 08/03/19 18:06 94 08/03/19 18:05 97 08/03/19 18:01 95 08/03/19 18:00 93 18 17:56 92 1819 17:55 92 1819 17:54 97 1819 17:52 92 1819 17:51 94 18/19 17:50 95 1819 17:46 93 18/19 17:45 92 18/19 17:41 98 18/19 17:40 96 18/19 17:36 94 18/19 17:35 98 18/19 17:31 97 18/19 17:30 98 18/19 17:27 100 18/19 17:26 99 18/19 17:25 99 18/19 17:22 96 18/19 17:20 97 18/19 17:16 99 18/19 17:15 97 18/19 17:11 96 18/19 17:10 95 18/19 17:06 100 18/19 17:05 100 18/19 17:01 99 18/19 17:00 100 18/19 16:55 94 18/19 16:48 97 18/19 15:23 92 18/19 15:13 91 18/19 15:01 91 08/03/19 14:01 90 13:31 92 08/03/19 13:10 08/03/19 13:00 92 08/03/19 11:51 90 08/03/19 11:47 95 (1) Degloving injury of left lower leg Encounter type: initial encounter Qualified Code(s): S81.802A - Unspecified open wound, left lower leg, initial encounter
[2019-08-03] MEDS ORDERED: Nursing to Pharmacy Communication ONE (20:52)
[2019-08-03] MEDS: AMITRIPTYLINE HCL 10 MG TAB PO SCH (21:15)
[2019-08-03] MEDS: ACETAMINOPHEN 500 MG TAB PO SCH (21:16)
[2019-08-03] MEDS: POTASSIUM CHLORIDE 10 MEQ TABCR PO SCH (21:16)
[2019-08-03] MEDS: MONTELUKAST SODIUM 10 MG TABLET PO SCH (21:16)
[2019-08-03] MEDS: DOCUSATE SODIUM 100 MG CAP PO SCH (21:16)
[2019-08-03] MEDS: BACLOFEN 10 MG TAB PO SCH (21:17)
[2019-08-03] MEDS: ROPINIROLE HCL 1 MG TABLET PO SCH (21:17)
[2019-08-03] MEDS: PANTOprazole 40 MG TAB PO SCH (21:17)
[2019-08-03] MEDS: HYDROmorphone INJ 0.5 MG/0.5 ML SYR IV PRN (21:24)
[2019-08-03] MEDS: TIOTROPIUM BROMIDE 5 PUFF/90 MCG INH INH SCH (21:28)
[2019-08-03] MEDS: INSULIN ASPART 100 UNITS/ML 3 ML PEN SC SCH (22:23)
[2019-08-03] MEDS ORDERED: DULERA~ORDER AWAITING ACTION SCH (22:30)
[2019-08-04] MEDS: CHECK FENTANYL PATCH PLACEMENT SCH ×3 (00:06→15:42)
[2019-08-04] MEDS: IPRATROPIUM BROMIDE/ALBUTEROL respimat INH INH SCH ×3 (00:07→13:33)
[2019-08-04] MEDS: FLUTICASONE/SALMETEROL 250/50 (ADVAIR) 14 PUFF/1 INHALER INH SCH ×3 (00:08→21:26)
[2019-08-04] MEDS: CEFAZOLIN 2000MG 2,000 MG/15 ML SYR IV SCH ×2 (00:08→08:26)
[2019-08-04] MEDS: OXYCODONE HCL IR 5 MG TAB (IMMEDIATE RELEASE) PO PRN ×4 (00:13→19:07)
[2019-08-04] MEDS: HYDROmorphone INJ 0.5 MG/0.5 ML SYR IV PRN (01:31)
[2019-08-04] MEDS: ACETAMINOPHEN 500 MG TAB PO SCH ×3 (05:31→21:27)
[2019-08-04] MEDS ORDERED: CEFAZOLIN 2000MG 2,000 MG/15 ML SYR IV SCH (06:00)
[2019-08-04 07:37] LABS: Hematocrit (blood only) 30.6 % (37-47); Hemoglobin 9.4 g/dL (12.0-16.0); Mean Corpuscular Hemoglobin 27.9 pg (25-34); Mean Corpuscular Hgb Conc 30.7 g/dL (32-36); Mean Corpuscular Volume 90.8 fL (80-100); Mean Platelet Volume 11.7 fL (7.4-10.4); Platelet Count 192 K/uL (130-400); RDW Coefficient of Variation 16.8 % (11.5-14.5); RDW Standard Deviation 55.8 fL (36.4-46.3); Red Blood Count 3.37 M/uL (4.2-5.4); White Blood Count 10.62 K/uL (4.8-10.8)
[2019-08-04 08:09] LABS: BUN Creatinine Ratio 17.9 (10-20); Calcium 8.2 mg/dl (8.5-10.1); Est GFR (African American) 66.2; Est GFR (Non-African American) 57.2; Potassium 4.6 mmol/L (3.5-5.1)
[2019-08-04] MEDS: TIOTROPIUM BROMIDE 5 PUFF/90 MCG INH INH SCH (08:28)
[2019-08-04] MEDS: DOCUSATE SODIUM 100 MG CAP PO SCH ×2 (08:29→21:26)
[2019-08-04] MEDS: POTASSIUM CHLORIDE 10 MEQ TABCR PO SCH ×2 (08:30→21:26)
[2019-08-04] MEDS: BACLOFEN 10 MG TAB PO SCH ×2 (08:30→21:26)
[2019-08-04] MEDS: ASPIRIN 81 MG ECTAB PO SCH (08:30)
[2019-08-04] MEDS: ATORVASTATIN 40 MG TAB PO SCH (08:31)
[2019-08-04] MEDS: CHOLECALCIFEROL 1,000 UNITS TAB PO SCH (08:31)
[2019-08-04] MEDS: MULTIVITAMIN TAB PO SCH (08:31)
[2019-08-04] MEDS: PANTOprazole 40 MG TAB PO SCH ×2 (08:31→21:26)
[2019-08-04] MEDS: BuPROPion XL 150 MG TABCR PO SCH (08:32)
[2019-08-04] MEDS ORDERED: fentaNYL 50 MCG/HR TDSY TD SCH (09:00)
--- NOTE | 2019-08-04 09:13 | Hospitalist Progress Note ---
Date of Service August 04, 2019 Assessment & Plan (1) Degloving injury of left lower leg: Patient presented to the ED after suffering a mechanical fall at home which resulted in a large laceration/degloving injury to the left knee s/p irrigation, debridement, and repair of degloved left knee laceration POD #[address] EBL 20ml, drain 10ml activity and wound care orders as per ortho pain control with bowel regimen PT/OT encourage incentive spirometry monitor H/H (2) Postoperative anemia: H&H stable at 9.4 and 30.6 Monitor H&H Preop hemoglobin 11.6 (3) Diabetes mellitus type 2, diet-controlled: hgb a1c 7.2 05/2019 currently not on any medications at home Novolog per protocol while hospitalized follow up with PCP (4) COPD (chronic obstructive pulmonary disease): no signs of acute exacerbation continue home inhalers schedule alb neb tx qid encourage incentive spirometry (5) Chronic respiratory failure: Secondary to COPD Continue O2 (6) HTN (hypertension): BP controlled continue Losartan (7) Acid reflux: continue PPI (8) DVT prophylaxis: SCDs as per ortho Disposition: Per primary Pt was seen and examined in collaboration with Dr. Blank, please see addendum Thank you for this consultation. We will follow the patient with you during their hospital stay. You [facility] via pager @ [phone]. Supervising Physician Co-Signing Physician Notes Patient is seen and examined at bedside. Complains of left knee pain at s urgical site. Also reports mild shortness of breath. Reports chronic cough which is unchanged. Offers no other complaints this morning. On exam patient is morbidly obese, no apparent distress, normocephalic atraumatic, lungs--decreased breath sounds, scattered wheezes, S1-S2, no murmur, abdomen soft nontender, left knee surgical site in dressing, no significant pedal edema, grossly nonfocal neurologist. S/P left knee-I&D and repair. Acute blood loss postoperative anemia. Monitor H&H. Continue bowel regimen to prevent constipation. Pain control, wound care, activity, DVT Px as per primary team. Agree with scheduled nebs for COPD. Advised to quit smoking. Continue home inhalers. I personally reviewed the record. Patient is interviewed and examined at bedside. Patient's care is coordinated with Renee Benton PA-C. Please refer to the documentation above for details of patient's presentation and for discussion of other issues. Subjective Patient seen and examined in room 355-2. Follow-up POD 1 status post I&D and repair of degloving injury to left knee by Dr. Lane. She complains of mild increasing shortness of breath. "I use a nebulizer at home 4 times a day and I have not had it since I have been here." She complains of chronic productive purulent cough secondary to COPD. Last night she did have some nausea and vomiting x2, mostly clear liquid. This morning she denies any nausea and vomiting. She has so far tolerated her breakfast. Complains of significant L knee pain and chronic low back pain for which she is on fentanyl patch. She denies any fever, chills, sweats, lightheadedness, dizziness, chest pain, palpitation, wheezing, abdominal pain, dysuria, increased urgency or frequency with urination. She is passing flatus. Has not moved her bowels. "I only move my bowels 2-3x per month, that's normal for me." Review of Systems Review of Systems: All systems reviewed & are unremarkable except as noted in HPI & below Physical Exam Physical Exam: Gen: Morbidly obese, female, lying in bed, WD/WN, NAD, A&O x3 HEENT: Normocephalic, atraumatic, conjunctivae moist, sclerae anicteric, mucous membranes moist. Lung: Clear to Auscultation bilaterally with decreased breath sounds at bases, distant breath sounds bilaterally, on O2 via nasal cannula 2L, no wheezes/rales/rhonchi Heart: Regular rate, regular rhythm, no murmurs, rubs, or gallops Abdomen: obese abdomen, firm, NT, ND +BS x 4 Extremities: No edema, LLE miguel bandage in place, NVI distally, +2 b/l pedal and PT pulses Skin: Warm, no rash, negative turgor. Results & Data Vital Signs (Past 12 Hours) Vital Signs Temp Pulse Resp BP Pulse Ox 08/04/19 07:17 37.1 C 84 16 113/72 95 08/04/19 03:58 36.6 C 88 20 147/74 H 96 08/03/19 23:05 36.7 C 81 24 132/74 97 Laboratory Results Short CBC 08/03/19 08/03/19 08/04/19 Range/Units 12:43 12:43 07:16 WBC 9.53 10.62 (4.8-10.8) K/uL Hgb 11.6 L 9.4 L (12.0-16.0) g/dL Hct 36.6 L 30.6 L (37-47) % Plt Count 192 192 (130-400) K/uL Creatinine 0.80 (0.6-1.2) mg/dl 08/04/19 Range/Units 07:16 WBC (4.8-10.8) K/uL Hgb (12.0-16.0) g/dL Hct (37-47) % Plt Count (130-400) K/uL Creatinine 1.01 (0.6-1.2) mg/dl BMP 08/03/19 08/04/19 12:43 07:16 Sodium 141 140 Potassium 4.3 4.6 Chloride 108 H 107 Carbon Dioxide 29 29 BUN 11 18 D Creatinine 0.80 1.01 Glucose 141 H 151 H Calcium 8.7 8.2 L Liver Function 08/03/19 Range/Units 12:43 Total Bilirubin 0.5 (0.2-1) mg/dl AST 13 L (15-37) U/L ALT 27 (12-78) U/L Alkaline Phosphatase 94 (45-117) U/L Albumin 3.2 L (3.4-5.0) gm/dl Medications Administered Acetaminophen (Tylenol) 1,000 mg PO Q8 PENDING SALE TO [facility] Stop: 09/02/19 21:59 Last Admin: 08/04/19 05:31 Dose: 1,000 mg Documented by: [id number] Admin: 08/03/19 21:16 Dose: Not Given Documented by: [id number] Albuterol (Combivent Respimat) 1 puffs INH QID PENDING SALE TO [facility] Stop: 09/02/19 22:09 Last Admin: 08/04/19 08:28 Dose: 1 puffs Documented by: [id number] Admin: 08/04/19 00:07 Dose: 1 puffs Documented by: [id number] Amitriptyline HCl (Elavil) 10 mg PO HS PENDING SALE TO [facility] Stop: 09/02/19 20:59 Last Admin: 08/03/19 21:15 Dose: 10 mg Documented by: [id number] Aspirin (Ecotrin Ectab) 81 mg PO DAILY PENDING SALE TO [facility] Stop: 09/03/19 08:59 Last Admin: 08/04/19 08:30 Dose: 81 mg Documented by: [id number] Atorvastatin Calcium (Lipitor) 40 mg PO QAM PENDING SALE TO [facility] Stop: 09/03/19 08:59 Last Admin: 08/04/19 08:31 Dose: 40 mg Documented by: [id number] Baclofen (Lioresal) 10 mg PO BID PENDING SALE TO [facility] Stop: 09/02/19 20:59 Last Admin: 08/04/19 08:30 Dose: 10 mg Documented by: [id number] Admin: 08/03/19 21:17 Dose: 10 mg Documented by: [id number] Bupropion HCl (Wellbutrin-Xl) 150 mg PO DAILY PENDING SALE TO [facility] Stop: 09/03/19 08:59 Last Admin: 08/04/19 08:32 Dose: 150 mg Documented by: [id number] Docusate Sodium (Colace) 100 mg PO BID PENDING SALE TO [facility] Stop: 09/02/19 20:59 Last Admin: 08/04/19 08:29 Dose: 100 mg Documented by: [id number] Admin: 08/03/19 21:16 Dose: 100 mg Documented by: [id number] Fentanyl (Duragesic) 50 mcg TD Q3D@0900 PENDING SALE TO [facility] Stop: 08/18/19 08:59 Last Admin: 08/04/19 08:42 Dose: 50 mcg Documented by: [id number] Hydromorphone HCl (Dilaudid) 0.25 mg IV Q4H PRN PRN Reason: Pain Stop: 08/17/19 18:23 Last Admin: 08/04/19 01:31 Dose: 0.25 mg Documented by: [id number] Admin: 08/03/19 21:24 Dose: 0.25 mg Documented by: [id number] Insulin Aspart (Novolog Flexpen) 0 units SC ACHS PENDING SALE TO [facility] Stop: 09/02/19 20:59 Last Admin: 08/03/19 22:23 Dose: 3 units Documented by: [id number] Cosigned by: [id number] Miscellaneous (Fentanyl Patch Check Placement) 1 ea N/A QS [facility] Stop: 09/03/19 00:00 Last Admin: 08/04/19 08:27 Dose: Not Given Documented by: [id number] Admin: 08/04/19 00:06 Dose: Not Given Documented by: [id number] Miscellaneous (Order Awaiting Action) 1 ea N/A QS [facility]END[facility] TO [facility] Stop: 09/03/19 00:00 Last Admin: 08/04/19 08:21 Dose: Not Given Documented by: [id number] Admin: 08/04/19 00:06 Dose: Not Given Documented by: [id number] Miscellaneous (Fentanyl Patch Remove & Waste) 1 ea N/A Q3D@0859 [facility] Stop: 09/03/19 08:58 Last Admin: 08/04/19 08:42 Dose: Not Given Documented by: [id number] Montelukast Sodium (Singulair) 10 mg PO PM PENDING SALE TO [facility] Stop: 09/02/19 20:59 Last Admin: 08/03/19 21:16 Dose: 10 mg Documented by: [id number] Multivitamins (Multivitamin Tab) 1 tab PO QAM PENDING SALE TO [facility] Stop: 09/03/19 08:59 Last Admin: 08/04/19 08:31 Dose: 1 tab Documented by: [id number] Ondansetron HCl (Zofran) 4 mg IV Q6H PRN PRN Reason: Nausea/Vomiting Stop: 09/02/19 14:38 Last Admin: 08/03/19 19:06 Dose: 4 mg Documented by: [id number] Oxycodone HCl (Roxicodone Immediate Rel) 5 - 10 mg PO Q4H PRN PRN Reason: Pain Stop: 08/17/19 18:23 Last Admin: 08/04/19 04:27 Dose: 10 mg Documented by: [id number] Admin: 08/04/19 00:13 Dose: 10 mg Documented by: [id number] Admin: 08/03/19 19:57 Dose: 10 mg Documented by: [id number] Pantoprazole Sodium (Protonix) 40 mg PO BID PENDING SALE TO [facility] Stop: 09/02/19 20:59 Last Admin: 08/04/19 08:31 Dose: 40 mg Documented by: [id number] Admin: 08/03/19 21:17 Dose: 40 mg Documented by: [id number] Potassium Chloride (Klor-Con M10) 10 meq PO BID PENDING SALE TO [facility] Stop: 09/02/19 20:59 Last Admin: 08/04/19 08:30 Dose: 10 meq Documented by: [id number] Admin: 08/03/19 21:16 Dose: 10 meq Documented by: [id number] Ropinirole HCl (Requip) 1 mg PO HS PENDING SALE TO [facility] Stop: 09/02/19 20:59 Last Admin: 08/03/19 21:17 Dose: 1 mg Documented by: [id number] Fluticasone/Salmeterol (Advair Diskus 250/50) 1 puffs INH BID [facility] Stop: 09/02/19 23:29 Last Admin: 08/04/19 08:27 Dose: 1 puffs Documented by: [id number] Admin: 08/04/19 00:08 Dose: 1 puffs Documented by: [id number] Tiotropium [place] (Spiriva) 1 puffs INH DAILY PENDING SALE TO [facility] Stop: 09/03/19 08:59 Last Admin: 08/04/19 08:28 Dose: 1 puffs Documented by: [id number] Vitamin D (Vitamin D3) 2,000 units PO DAILY [facility] Stop: 09/03/19 08:59 Last Admin: 08/04/19 08:31 Dose: 2,000 units Documented by: [id number] Discontinued Medications Bacitracin (Bacitracin) Confirm Administered Dose 50,000 units .ROUTE .STK-MED ONE Stop: 08/03/19 14:44 Last Admin: 08/03/19 16:15 Dose: 50,000 units Documented by: [id number] Bacitracin (Bacitracin) Confirm Administered Dose 50,000 units .ROUTE .STK-MED ONE Stop: 08/03/19 15:58 Last Admin: 08/03/19 16:15 Dose: 50,000 units Documented by: [id number] Cefazolin Sodium (Ancef 2000mg) Confirm Administered Dose 2,000 mg IV .STK-MED ONE Stop: 08/03/19 15:40 Last Admin: 08/03/19 15:50 Dose: 2,000 mg Documented by: [id number] Fentanyl Citrate (Fentanyl Citrate) 50 mcg IV NOW STA Stop: 08/03/19 12:24 Last Admin: 08/03/19 12:31 Dose: 50 mcg Documented by: [id number] Fentanyl Citrate (Fentanyl Citrate) 50 mcg IV Q5M PRN PRN Reason: PACU Use Only-Pain Stop: 08/03/19 20:48 Last Admin: 08/03/19 17:10 Dose: 50 mcg Documented by: [id number] Admin: 08/03/19 17:05 Dose: 50 mcg Documented by: [id number] Admin: 08/03/19 17:00 Dose: 50 mcg Documented by: [id number] Admin: 08/03/19 16:55 Dose: 50 mcg Documented by: [id number] Hydromorphone HCl (Dilaudid) 0.25 mg IV Q5M PRN PRN Reason: PACU Use Only-Pain Stop: 08/03/19 20:49 Last Admin: 08/03/19 17:40 Dose: 0.25 mg Documented by: [id number] Admin: 08/03/19 17:35 Dose: 0.25 mg Documented by: [id number] Admin: 08/03/19 17:30 Dose: 0.25 mg Documented by: [id number] Admin: 08/03/19 17:25 Dose: 0.25 mg Documented by: [id number] Admin: 08/03/19 17:20 Dose: 0.25 mg Documented by: [id number] Admin: 08/03/19 17:15 Dose: 0.25 mg Documented by: [id number] Cefazolin Sodium 3,000 mg/ (Dextrose) 72.5 mls @ 145 mls/hr IV NOW STA Stop: 08/03/19 13:04 Last Infusion: 08/03/19 13:45 Dose: 0 mls/hr Documented by: [id number] Admin: 08/03/19 13:09 Dose: 145 mls/hr Documented by: [id number] Sodium Chloride (Nss 1000ml) 1,000 mls @ 75 mls/hr IV .[id number] [facility] Stop: 09/02/19 14:44 Last Admin: 08/03/19 19:36 Dose: Not Given Documented by: [id number] Sodium Chloride (Nss 1000ml) 1,000 mls @ 75 mls/hr IV .[id number] [facility] Stop: 08/04/19 06:00 Last Infusion: 08/04/19 08:22 Dose: 0 mls/hr Documented by: [id number] Admin: 08/03/19 19:36 Dose: 75 mls/hr Documented by: [id number] Cefazolin Sodium (Ancef 2000mg) 2,000 mg in 15 mls @ 3.75 mls/min IV Q8H [facility]; Protocol Stop: 08/04/19 08:03 Last Admin: 08/04/19 08:26 Dose: 3.75 mls/min Documented by: [id number] Admin: 08/04/19 00:08 Dose: 3.75 mls/min Documented by: [id number] Ondansetron HCl (Zofran) 4 mg IV NOW STA Stop: 08/03/19 12:25 Last Admin: 08/03/19 12:31 Dose: 4 mg Documented by: [id number] (1) Degloving injury of left lower leg Encounter type: initial encounter Qualified Code(s): S81.802A - Unspecified open wound, left lower leg, initial encounter
[2019-08-04] MEDS: INSULIN ASPART 100 UNITS/ML 3 ML PEN SC SCH ×4 (09:26→21:28)
[2019-08-04] MEDS: ALBUTEROL 0.083% NEBU SOLN 3 ML VIAL INH SCH ×4 (09:45→19:01)
--- NOTE | 2019-08-04 11:12 | Orthopedic Progress Note ---
Date of Service August 04, 2019 Assessment & Plan (1) Degloving injury of left lower leg: POD 2 s/p I/D/ repair left knee degloving injury PT/OT. WBAT with immobilizer. DVT prophylaxis - SCD's/ASA Pain management - Pt with chronic h/o LBP. H/O use of Fentanyl patch and Percocet TID. Currently on OxyIR 5-10mg q4h prn and Fentanyl patch. Acute Blood Loss Anemia - From original injury and surgery. Follow H/H. Asymptomatic currently. DC planning - Pt hoping to go home. May benefit from HH services. Follow PT results. Subjective POD 1 Pt lying bed sleeping. Easily awoken. Having some discomfort in the operative knee but controlled at rest. Would like to get OOB to use BSC. No other issues. No increased SOB,CP. Physical Exam Physical Exam: Dressings C/D/I. Calves soft,NT. NV intact. Toes mobile. HV drainage noted to be 10ml latest shift. Results & Data Vital Signs (Past 12 Hours) Vital Signs Temp Pulse Resp BP Pulse Ox 08/04/19 09:46 82 16 92 08/04/19 07:17 37.1 C 84 16 113/72 95 08/04/19 03:58 36.6 C 88 20 147/74 H 96 Laboratory Results Laboratory Results WBC 10.62 K/uL (4.8-10.8) 08/04/19 07:16 RBC 3.37 M/uL (4.2-5.4) L 08/04/19 07:16 Hgb 9.4 g/dL (12.0-16.0) L 08/04/19 07:16 Hct 30.6 % (37-47) L 08/04/19 07:16 MCV 90.8 fL (80-100) 08/04/19 07:16 MCH 27.9 pg (25-34) 08/04/19 07:16 MCHC 30.7 g/dL (32-36) L 08/04/19 07:16 RDW Std Deviation 55.8 fL (36.4-46.3) H 08/04/19 07:16 RDW Coeff of Isak 16.8 % (11.5-14.5) H 08/04/19 07:16 Plt Count 192 K/uL (130-400) 08/04/19 07:16 MPV 11.7 fL (7.4-10.4) H 08/04/19 07:16 Immature Gran % (Auto) 0.2 % 08/03/19 12:43 Neut % (Auto) 79.1 % 08/03/19 12:43 Lymph % (Auto) 12.3 % 08/03/19 12:43 [place] % (Auto) 6.9 % 08/03/19 12:43 Eos % (Auto) 1.2 % 08/03/19 12:43 Baso % (Auto) 0.3 % 08/03/19 12:43 Immature Gran # (Auto) 0.02 K/uL (0.00-0.02) 08/03/19 12:43 Neut # (Auto) 7.54 K/uL (1.4-6.5) H 08/03/19 12:43 Lymph # (Auto) 1.17 K/uL (1.2-3.4) L 08/03/19 12:43 [place] # (Auto) 0.66 K/uL (0.11-0.59) H 08/03/19 12:43 Eos # (Auto) 0.11 K/uL (0-0.5) 08/03/19 12:43 Baso # (Auto) 0.03 K/uL (0-0.2) 08/03/19 12:43 PT 10.3 Seconds (9.0-12.0) 08/03/19 12:43 INR 1.0 (0.9-1.1) 08/03/19 12:43 APTT 24.5 Seconds (21.0-31.0) 08/03/19 12:43 PTT Ratio 0.9 08/03/19 12:43 Sodium 140 mmol/L (136-145) 08/04/19 07:16 Potassium 4.6 mmol/L (3.5-5.1) 08/04/19 07:16 Chloride 107 mmol/L (98-107) 08/04/19 07:16 Carbon Dioxide 29 mmol/L (21-32) 08/04/19 07:16 Anion Gap 5.0 (3-11) 08/04/19 07:16 BUN 18 mg/dl (7-18) D 08/04/19 07:16 Creatinine 1.01 mg/dl (0.6-1.2) 08/04/19 07:16 Est Cr Clr Drug Dosing 65.0 ml/min 08/04/19 07:16 Est GFR ( Amer) 66.2 08/04/19 07:16 Est GFR (Non-Af Amer) 57.2 08/04/19 07:16 BUN/Creatinine Ratio 17.9 (10-20) 08/04/19 07:16 Glucose 151 mg/dl (70-99) H 08/04/19 07:16 POC Glucose 170 (70-99) H 08/04/19 08:02 Calcium 8.2 mg/dl (8.5-10.1) L 08/04/19 07:16 Total Bilirubin 0.5 mg/dl (0.2-1) 08/03/19 12:43 AST 13 U/L (15-37) L 08/03/19 12:43 ALT 27 U/L (12-78) 08/03/19 12:43 Alkaline Phosphatase 94 U/L (45-117) 08/03/19 12:43 Total Protein 6.6 gm/dl (6.4-8.2) 08/03/19 12:43 Albumin 3.2 gm/dl (3.4-5.0) L 08/03/19 12:43 Globulin 3.4 gm/dl (2.5-4.0) 08/03/19 12:43 Albumin/Globulin Ratio 0.9 (0.9-2) 08/03/19 12:43 Hepatitis C Ab Screen Neg (Neg) 08/04/19 07:16 Blood Type B Negative 08/03/19 12:47 Antibody Screen NEGATIVE 08/03/19 12:47 (1) Degloving injury of left lower leg Encounter type: initial encounter Qualified Code(s): S81.802A - Unspecified open wound, left lower leg, initial encounter
[2019-08-04] MEDS ORDERED: ROPINIROLE HCL 1 MG TABLET PO STA (14:26)
[2019-08-04] MEDS: AMITRIPTYLINE HCL 10 MG TAB PO SCH (21:26)
[2019-08-04] MEDS: MONTELUKAST SODIUM 10 MG TABLET PO SCH (21:26)
[2019-08-05] MEDS: CHECK FENTANYL PATCH PLACEMENT SCH ×3 (00:16→15:59)
[2019-08-05] MEDS: OXYCODONE HCL IR 5 MG TAB (IMMEDIATE RELEASE) PO PRN ×2 (00:21→07:58)
[2019-08-05] MEDS: ACETAMINOPHEN 500 MG TAB PO SCH ×3 (05:34→21:31)
[2019-08-05 07:24] LABS: Hemoglobin 8.8 g/dL (12.0-16.0); Mean Corpuscular Hemoglobin 27.9 pg (25-34); Mean Corpuscular Hgb Conc 31.4 g/dL (32-36); Mean Corpuscular Volume 88.9 fL (80-100); Mean Platelet Volume 11.4 fL (7.4-10.4); Platelet Count 164 K/uL (130-400); RDW Coefficient of Variation 16.9 % (11.5-14.5); RDW Standard Deviation 54.4 fL (36.4-46.3); Red Blood Count 3.15 M/uL (4.2-5.4); White Blood Count 7.85 K/uL (4.8-10.8)
[2019-08-05] MEDS: ALBUTEROL 0.083% NEBU SOLN 3 ML VIAL INH SCH ×4 (07:29→19:46)
[2019-08-05 07:55] LABS: BUN Creatinine Ratio 22.1 (10-20); Calcium 8.9 mg/dl (8.5-10.1); Creatinine Clr Calc Pharmacy 67.7 ml/min; Est GFR (African American) 69.6; Potassium 4.3 mmol/L (3.5-5.1)
--- NOTE | 2019-08-05 08:42 | Hospitalist Progress Note ---
Date of Service August 05, 2019 Assessment & Plan (1) Degloving injury of left lower leg: Patient presented to the ED on 07/24/19 after suffering a mechanical fall at home which resulted in a large laceration/degloving injury to the left knee POD #2 S/P irrigation, debridement, and repair of degloved left knee laceration by Dr. Domingo ABRAHAM 20ml, total drain output 25ml activity and wound care orders as per ortho pain control with bowel regimen PT/OT encourage incentive spirometry Hgb: 8.8 from 11.6 pre-op, monitor H/H (2) Postoperative anemia: Hgb: 8.8 from 11.6 pre-op, monitor H/H (3) Diabetes mellitus type 2, diet-controlled: HgbA1c 7.2 in 05/2019 Currently not on any medications at home Novolog per protocol while hospitalized - has required minimal Novolog - 8 units over past 24 hours Fasting glucose 128 this am Will require additional follow up with PCP (4) COPD (chronic obstructive pulmonary disease): No signs of acute exacerbation. No increased SOB or cough. Continue home inhalers, montelukast Schedule alb neb tx qid Continue chronic oxygen Encourage incentive spirometry (5) Chronic respiratory failure: Secondary to COPD Continue chronic O2 at 2-2.5L via NC (6) HTN (hypertension): BP controlled Continue Losartan (7) Acid reflux: Continue PPI (8) DVT prophylaxis: SCDs as per ortho Disposition: Per primary Pt was seen and examined in collaboration with Dr. Blank, please see addendum Supervising Physician Co-Signing Physician Notes Patient is seen and examined at bedside. Left knee pain at surgical site is improved. Patient was able to bear weight on left knee and was able to ambulate today. Reports chronic cough which is unchanged. Offers no other complaints. On exam patient is morbidly obese, no apparent distress, normocephalic atraumatic, lungs--decreased breath sounds, scattered wheezes, S1-S2, no murmur, abdomen soft nontender, left knee surgical site in dressing, no significant pedal edema, grossly nonfocal neurologist. S/P left knee-I&D and repair POD #2. Acute blood loss postoperative anemia. Monitor H&H. Continue bowel regimen to prevent constipation. Pain control, wound care, activity, DVT Px as per primary team. Agree with scheduled nebs for COPD. Advised to quit smoking. Continue home inhalers. Patient currently not interested in rehab placement. Would likely benefit from outpatient PT. Continue PT/OT while hospitalized. Disposition as per primary team. I personally reviewed the record. Patient is interviewed and examined at bedside. Patient's care is coordinated with Marium Can PA-C. Please refer to the documentation above for details of patient's presentation and for discussion of other issues. Subjective F/U medical. Pt seen and examined sitting up in bed. POD #2 s/p irrigation, debridement, and repair of left knee laceration. Reports doing well post op. States has been up to bedside chair. Usually ambulates with walker at home. Denies any pain currently. Reports appetite at baseline. No BM while in hospital. reports chronic constipation. Reports chronic cough and denies any increased cough. Denies increased SOB. Reports wears 2-2.5L oxygen at home. Denies fever/chills, diaphoresis, N/V, WHITTAKER, dizziness, syncope, vision changes, neck pain, CP, orthopnea, palpitations, sore throat, choking, otalgia, rhinorrhea, abdominal pain, paresthesias, extremity edema, rashes, urinary symptoms. Review of Systems Review of Systems: All systems reviewed & are unremarkable except as noted in HPI & below Physical Exam Physical Exam: General: no distress, obese Head: normocephalic, atraumatic Eyes: conjunctiva non-injected, anicteric ENT: normal inspection external ears, nose, mucous membranes moist Neck: supple, trachea midline Lungs: clear, no respiratory distress, no wheezing/rhonchi/rales CV: RRR, no murmur, no pretibial edema Abd: normal BS, soft, protuberant, non-tender Ext: no calf tenderness; left knee with knee immobilizer and dressing in place, distal pulses palpable, sensation to light touch intact, Neuro: A&O x 3, no focal deficits noted, normal affect Skin: warm, dry Results & Data Vital Signs (Past 12 Hours) Vital Signs Temp Pulse Pulse Resp BP Pulse Ox 08/05/19 07:31 89 18 94 08/05/19 07:29 36.9 C 88 15 129/77 95 08/05/19 00:10 37 C 93 H 20 145/68 H 96 Laboratory Results Short CBC 08/03/19 08/04/19 08/05/19 Range/Units 12:43 07:16 06:56 WBC 7.85 (4.8-10.8) K/uL Hgb 8.8 L (12.0-16.0) g/dL Hct 28.0 L (37-47) % Plt Count 164 (130-400) K/uL Creatinine 0.80 1.01 (0.6-1.2) mg/dl Glucose 141 H 151 H (70-99) mg/dl 08/05/19 Range/Units 06:56 WBC (4.8-10.8) K/uL Hgb (12.0-16.0) g/dL Hct (37-47) % Plt Count (130-400) K/uL Creatinine 0.97 (0.6-1.2) mg/dl Glucose 128 H (70-99) mg/dl BMP 08/05/19 06:56 Sodium 138 Potassium 4.3 Chloride 106 Carbon Dioxide 29 BUN 21 H Creatinine 0.97 Glucose 128 H Calcium 8.9 (1) Degloving injury of left lower leg Encounter type: initial encounter Qualified Code(s): S81.802A - Unspecified open wound, left lower leg, initial encounter
--- NOTE | 2019-08-05 08:48 | Orthopedic Progress Note ---
Date of Service August 05, 2019 Assessment & Plan (1) Degloving injury of left lower leg: POD 2 s/p I/D/ repair left knee degloving injury PT/OT. WBAT with immobilizer. DVT prophylaxis - SCD's/ASA Pain management - Pt with chronic h/o LBP. H/O use of Fentanyl patch and Percocet TID. Currently on OxyIR 5-10mg q4h prn and Fentanyl patch. Acute Blood Loss Anemia - H/H stable DC planning - Pt hoping to go home. May benefit from HH services. Follow PT results. Patient's initial ambulation status was minimal yesterday. We discussed that she would have to increase her ambulation distance quite a bit for her to go home. She does not want to go to rehab facility and states she wi ll try harder with her physical therapy. She is agreeable to home health services and PT. We will reassess her PT progress and make a decision for discharge soon. Subjective Patient sitting up in bed awake and alert. Nursing staff just did a dressing change. Patient states she is having less pain today. Denies shortness of breath, chest pain, lightheadedness. Physical Exam Physical Exam: Incision is clean, dry, and intact. Ecchymosis noted of the lower section of the flap. No overt drainage. Drain was removed by nursing staff. Calves are soft nontender. Neurovascular is intact. Toes are mobile. Dressing reapplied and immobilizer was put back on. Results & Data Vital Signs (Past 12 Hours) Vital Signs Temp Pulse Pulse Resp BP Pulse Ox 08/05/19 07:31 89 18 94 08/05/19 07:29 36.9 C 88 15 129/77 95 08/05/19 00:10 37 C 93 H 20 145/68 H 96 (1) Degloving injury of left lower leg Encounter type: initial encounter Qualified Code(s): S81.802A - Unspecified open wound, left lower leg, initial encounter
[2019-08-05] MEDS: FLUTICASONE/SALMETEROL 250/50 (ADVAIR) 14 PUFF/1 INHALER INH SCH ×2 (08:54→21:05)
[2019-08-05] MEDS: TIOTROPIUM BROMIDE 5 PUFF/90 MCG INH INH SCH (08:55)
[2019-08-05] MEDS: CHOLECALCIFEROL 1,000 UNITS TAB PO SCH (08:56)
[2019-08-05] MEDS: BuPROPion XL 150 MG TABCR PO SCH (08:56)
[2019-08-05] MEDS: POTASSIUM CHLORIDE 10 MEQ TABCR PO SCH ×2 (08:56→21:05)
[2019-08-05] MEDS: PANTOprazole 40 MG TAB PO SCH ×2 (08:56→21:06)
[2019-08-05] MEDS: MULTIVITAMIN TAB PO SCH (08:56)
[2019-08-05] MEDS: ATORVASTATIN 40 MG TAB PO SCH (08:56)
[2019-08-05] MEDS: ASPIRIN 81 MG ECTAB PO SCH (08:56)
[2019-08-05] MEDS: BACLOFEN 10 MG TAB PO SCH ×2 (08:56→21:05)
[2019-08-05] MEDS: DOCUSATE SODIUM 100 MG CAP PO SCH ×2 (08:57→21:14)
[2019-08-05] MEDS: INSULIN ASPART 100 UNITS/ML 3 ML PEN SC SCH ×4 (09:15→21:09)
[2019-08-05] MEDS: ROPINIROLE HCL 1 MG TABLET PO SCH (21:05)
[2019-08-05] MEDS: MONTELUKAST SODIUM 10 MG TABLET PO SCH (21:05)
[2019-08-05] MEDS: AMITRIPTYLINE HCL 10 MG TAB PO SCH (21:05)
[2019-08-06] MEDS: CHECK FENTANYL PATCH PLACEMENT SCH ×2 (00:26→08:32)
[2019-08-06] MEDS: ACETAMINOPHEN 500 MG TAB PO SCH ×2 (05:57→13:40)
[2019-08-06 06:56] LABS: Hematocrit (blood only) 26.8 % (37-47); Hemoglobin 8.6 g/dL (12.0-16.0); Mean Corpuscular Hemoglobin 28.7 pg (25-34); Mean Corpuscular Hgb Conc 32.1 g/dL (32-36); Mean Corpuscular Volume 89.3 fL (80-100); Mean Platelet Volume 11.4 fL (7.4-10.4); Platelet Count 145 K/uL (130-400); RDW Coefficient of Variation 16.9 % (11.5-14.5); RDW Standard Deviation 55.1 fL (36.4-46.3); White Blood Count 6.68 K/uL (4.8-10.8)
[2019-08-06] MEDS: ALBUTEROL 0.083% NEBU SOLN 3 ML VIAL INH SCH ×2 (07:04→11:13)
[2019-08-06] MEDS: OXYCODONE HCL IR 5 MG TAB (IMMEDIATE RELEASE) PO PRN (07:33)
--- NOTE | 2019-08-06 07:51 | Orthopedic Progress Note ---
Date of Service August 06, 2019 Assessment & Plan (1) Degloving injury of left lower leg: POD 3 s/p I/D/ repair left knee degloving injury PT/OT. WBAT with immobilizer. DVT prophylaxis - SCD's/ASA Pain management - Pt with chronic h/o LBP. H/O use of Fentanyl patch and Percocet TID. Currently on OxyIR 5-10mg q4h prn and Fentanyl patch. Acute Blood Loss Anemia - H/H stable DC planning - D/C home today. Patient's initial ambulation status was minimal 2 days ago. We discussed that she would have to increase her ambulation distance quite a bit for her to go home. She does not want to go to rehab facility and states she will try harder with her physical therapy. She is agreeable to home health services and PT. We will reassess her PT progress and make a decision for discharge soon. Subjective Doing well today. States the knee feels very good. Pain controlled. Feels she is ready to go home today. Denies CP, SOB. Physical Exam Constitutional: WD/WN, vitals as above Musculoskeletal: Knee: + surgical incision (left knee transverse laceration well approximated. Candy in place.) and + joint line tenderness (Tender along left knee laceration.); knee normal to inspection, no skin erythema and no ecchymosis Blister on the distal aspect of the transverse laceration. No drainage. No erythema. Psychiatric: A+Ox3, euthymic affect Speech: normal rate/rhythm/volume of speech Results & Data Vital Signs (Past 12 Hours) Vital Signs Temp Pulse Pulse Resp BP Pulse Ox 08/06/19 07:04 82 18 98 08/05/19 23:25 37.2 C 85 19 118/75 94 (1) Degloving injury of left lower leg Encounter type: initial encounter Qualified Code(s): S81.802A - Unspecified open wound, left lower leg, initial encounter
[2019-08-06] MEDS: FLUTICASONE/SALMETEROL 250/50 (ADVAIR) 14 PUFF/1 INHALER INH SCH (08:32)
[2019-08-06] MEDS: BuPROPion XL 150 MG TABCR PO SCH (08:33)
[2019-08-06] MEDS: ATORVASTATIN 40 MG TAB PO SCH (08:33)
[2019-08-06] MEDS: POTASSIUM CHLORIDE 10 MEQ TABCR PO SCH (08:33)
[2019-08-06] MEDS: CHOLECALCIFEROL 1,000 UNITS TAB PO SCH (08:33)
[2019-08-06] MEDS: PANTOprazole 40 MG TAB PO SCH (08:33)
[2019-08-06] MEDS: MULTIVITAMIN TAB PO SCH (08:33)
[2019-08-06] MEDS: ASPIRIN 81 MG ECTAB PO SCH (08:33)
[2019-08-06] MEDS: TIOTROPIUM BROMIDE 5 PUFF/90 MCG INH INH SCH (08:33)
[2019-08-06] MEDS: BACLOFEN 10 MG TAB PO SCH (08:33)
[2019-08-06] MEDS: DOCUSATE SODIUM 100 MG CAP PO SCH (08:34)
[2019-08-06] MEDS: INSULIN ASPART 100 UNITS/ML 3 ML PEN SC SCH ×2 (08:38→13:37)
[2019-08-06] MEDS ORDERED: fentaNYL 50 MCG/HR TDSY TD SCH (09:00)
--- NOTE | 2019-08-06 16:34 | Hospitalist Progress Note ---
Date of Service August 06, 2019 Assessment & Plan (1) Degloving injury of left lower leg: H/O Mechanical fall leading to large laceration/degloving injury to the left knee POD #3 S/P irrigation, debridement, and repair of degloved left knee laceration by Dr. Lane Pain is well controlled Activity, wound care, DVT prophylaxis as per primary team Continue bowel regimen to prevent constipation Monitor for postop anemia (2) Postoperative anemia: Hb stable (3) Diabetes mellitus type 2, diet-controlled: HgbA1c 7.2 in 05/2019 Currently not on any medications at home Novolog per protocol while hospitalized Advised to follow-up with PCP for further recommendations (4) COPD (chronic obstructive pulmonary disease): No signs of acute exacerbation. Continue home inhalers, montelukast Continue Nebs Continue chronic oxygen (5) Chronic respiratory failure: Secondary to COPD Continue chronic O2 at 2-2.5L via NC (6) HTN (hypertension): BP controlled Continue Losartan (7) Acid reflux: Continue PPI (8) DVT prophylaxis: SCDs as per ortho Disposition: Per primary team Subjective Patient is seen and examined at bedside Knee pain is well controlled Denies any chest pain, shortness of breath, dizziness, nausea, abdominal pain Has chronic cough which is unchanged Offers no other complaints Review of Systems Review of Systems: All systems reviewed & are unremarkable except as noted in HPI & below Physical Exam Physical Exam: General: Morbid obesity, no apparent distress Head: normocephalic, atraumatic Eyes: EOMI, Anicteric Neck: supple, trachea midline Lungs:Decreased breath sounds, CTA CV: RRR, no murmur, no pretibial edema Abd: normal BS, soft, protuberant, non-tender Ext: no calf tenderness; left knee with knee immobilizer and dressing in place Neuro: A&O x 3, no focal deficits noted, normal affect Skin: warm, dry Results & Data Vital Signs (Past 12 Hours) Vital Signs Temp Pulse Pulse Resp BP Pulse Ox 08/06/19 13:49 37.1 C 81 90 18 122/68 98 08/06/19 11:14 81 18 98 08/06/19 10:05 37.1 C 82 90 18 122/68 90 08/06/19 07:32 37.1 C 90 18 122/68 90 08/06/19 07:04 82 18 98 Laboratory Results Short CBC 08/06/19 Range/Units 06:34 WBC 6.68 (4.8-10.8) K/uL Hgb 8.6 L (12.0-16.0) g/dL Hct 26.8 L (37-47) % Plt Count 145 (130-400) K/uL (1) Degloving injury of left lower leg Encounter type: initial encounter Qualified Code(s): S81.802A - Unspecified open wound, left lower leg, initial encounter
--- NOTE | 2019-08-15 17:25 | Discharge Summary ---
DISCHARGE DIAGNOSIS: Degloving injury left lower extremity. SECONDARY DIAGNOSES: Gastroesophageal reflux disease, chronic low back pain, COPD, vertigo. CONSULTS: HAKAN Charles/Dr. Fabián Aguirre. COMPLICATIONS: None. PROCEDURES: Irrigation and debridement and repair of degloving injury, left knee 17 cm laceration to the inferior degloved area, extraarticular wound by Dr. Lane on 08/03/2019. BRIEF HISTORY: As dictated in the history and physical. HOSPITAL SUMMARY: The patient was admitted on the above-noted date and had the above-noted surgery performed, which she tolerated well. [facility] service was consulted for medical management during her stay and saw the patient on the day of admission. On her first postoperative day, she was lying in bed sleeping but was easily awoken. She was having some discomfort in the operative knee, but was controlled at rest. The patient was stating she would like to get out of bed to use the bedside commode. She had no other issues. No increased shortness of breath or chest pain. Dressings clean, dry and intact. Calves were soft, nontender, neurovascularly intact. Toes were mobile. Hemovac drainage was noted to be 10 mL the previous shift. Vital signs were stable. She was afebrile. Hemoglobin was 9.4 and she was started on PT, OT protocols, weightbearing as tolerated with immobilizer. DVT prophylaxis and pain management. She had acute blood loss anemia from the original injury and surgery and plans were to follow the H&H. Patient was hoping to go home and planning for home health services. By her second postoperative day, she was sitting up in bed, awake and alert. Nursing staff just had a dressing change. The patient states that she was having less pain today. Denies shortness of breath, chest pain or lightheadedness. Her incision was clean, dry and intact. Ecchymosis was noted to the lower section of the flap. No overt drainage. Drain was removed per nursing staff. Calves were soft, nontender, neurovascularly intact. Toes were mobile. Dressings were applied. An immobilizer was put back on. Vital signs were stable. She was afebrile. Hemoglobin was 8.8. She was continued on her PT, OT protocol which she did minimal ambulation the day prior. We discussed the possibility of a rehab facility of which the patient was refusing. We discussed that she would have to increase her ambulation distance prior to returning home of which she was in agreement. She was continued on weightbearing as tolerated with immobilizer and continued on DVT prophylaxis with SCDs and aspirin. By her third postoperative day she was doing well and stated that she felt good. Pain was controlled and she felt ready to go home. She denied chest pain, shortness of breath. Surgical incision showed a transverse laceration well approximated and wilber in place. She was mildly tender along the left knee laceration. There was a blister on the distal aspects of the transverse laceration. No drainage, no erythema. Vital signs were stable. She was afebrile. She was continued on her PT, OT protocols, DVT prophylaxis and pain management. She was progressing well with physical therapy. She was remaining medically stable as well as orthopedically stable and it was felt she could be discharged to home on 08/06/2019. For further review, please see chart. LABORATORY AND X-RAY DATA: As per chart. DISCHARGE INSTRUCTIONS: The patient was discharged to home in satisfactory condition with home health services. ACTIVITY: Weightbearing as tolerated left lower extremity with immobilizer on. Weight as tolerated on the left lower extremity with immobilizer on at all times, may remove for changing clothes or bathing, range of motion of the left knee. Keep leg elevated on pillows when at rest. She can shower in 72 hours after surgery if you are having minimal or no drainage from the incision. No direct shower pressure on the wound. Do not soak it. No tub baths. Change dressing daily. May use an Luther wrap to keep the dressing on. Call the office if you have increased pain, swelling, redness of the wound or temperature of [address] or greater[address] Followup with Dr. Lane in 10-14 days; the patient to call for appointment. DISCHARGE MEDICATIONS: Acetaminophen 1000 mg p.o. q. 8 hours, oxycodone 5-10 mg p.o. q. 4 hours p.r.n. Resume home meds as listed and discontinue taking Percocet.
== END 2019-08-06 14:45 | disposition home health service (06) | DRG 605 ==
LOC: ED 11:47 → ASU 15:13 → 3N 15:14 → 3W 22:35

== ENCOUNTER 2022-03-04 13:48 | Inpatient (IN) ==
[2022-03-04 15:04] LABS: Basophils # (auto) 0.02 K/uL (0-0.2); Basophils % (auto) 0.2 %; Hematocrit (blood only) 37.2 % (34.1-44.9); Hemoglobin 11.7 g/dl (12.0-16.0); Immature Granulocytes # (auto) 0.05 K/uL (0.00-0.02); Immature Granulocytes % (auto) 0.4 %; Lymphocytes # (auto) 0.72 K/uL (1.2-3.4); Lymphocytes % (auto) 6.2 %; Mean Corpuscular Hemoglobin 28.1 pg (25.0-34.0); Mean Corpuscular Hgb Conc 31.5 g/dL (32.0-36.0); Mean Corpuscular Volume 89.2 fL (80.0-100.0); Mean Platelet Volume 12.8 fL (9.4-12.3); Monocytes # (auto) 1.61 K/uL (0.24-0.82); Monocytes % (auto) 13.9 %; Neutrophils # (auto) 9.15 K/uL (1.4-6.5); Neutrophils % (auto) 79.3 %; Platelet Count 135 K/uL (130-400); RDW Coefficient of Variation 14.7 % (11.5-14.5); RDW Standard Deviation 47.9 fL (36.4-46.3); Red Blood Count 4.17 M/uL (3.93-5.22); White Blood Count 11.55 K/ul (4.8-10.8)
[2022-03-04 15:16] LABS: INR 1.1 (0.9-1.1); Partial Thromboplastin Ratio 1.1; Partial Thromboplastin Time 28.9 Seconds (21.0-31.0); Prothrombin Time 11.5 Seconds (9.0-12.0)
[2022-03-04 15:26] LABS: Alanine Aminotransferase 14 U/L (7-52); Albumin Globulin Ratio 1.2 (0.9-2); Albumin Level 3.7 gm/dl (3.4-5.0); Alkaline Phosphatase 75 U/L (34-104); Anion Gap 6 (3-11); Aspartate Aminotransferase 18 U/L (13-39); BUN Creatinine Ratio 16.1 (10-20); Blood Urea Nitrogen 19 mg/dl (6-23); Calcium 8.4 mg/dl (8.5-10.1); Carbon Dioxide 27 mmol/L (21-32); Chloride 103 mmol/L (98-107); Est GFR (African American) 53.7 ml/min; Est GFR (Non-African American) 46.4 ml/min; Glucose 168 mg/dl (70-99(Fasting)); Magnesium 1.9 mg/dl (1.7-2.4); Potassium 4.1 mmol/L (3.5-5.1); Sodium 136 mmol/L (136-145); Total Protein 6.7 gm/dl (6.0-8.3)
[2022-03-04] MEDS ORDERED: FAMOTIDINE 20MG IV PUSH 20 MG/5 ML SYR IV STA (15:49)
[2022-03-04] MEDS ORDERED: ONDANSETRON INJ 2 MG/ML 2 ML VIAL IV STA (15:49)
[2022-03-04] MEDS ORDERED: SODIUM CHLORIDE 0.9% 1000ML 1,000 ML IV ONE (15:49)
[2022-03-04] MEDS ORDERED: OPTIRAY 320 100ml IV ONE (17:01)
--- NOTE | 2022-03-04 17:02 | XRay Report ---
XR chest 1V portable CLINICAL HISTORY: n/v, cough TECHNIQUE: Single frontal radiograph of the chest was obtained. Comparison: None available at the time of this dictation. FINDINGS: Exam is limited by underpenetration. Cardiomegaly is noted. Prominence and cephalization of the vascu lature is seen. No evidence of pleural effusion or pneumothorax. IMPRESSION: No acute chest disease. ACT 112: Negative or not required by law. Electronically signed by: El Romeo M.D. 03/04/2022 5:00 PM
--- NOTE | 2022-03-04 17:04 | XRay Report ---
XR shoulder LT min 2V routine CLINICAL HISTORY: Fall with left shoulder pain. COMPARISON STUDY: The left shoulder 06/01/2015. FINDINGS: The bones are osteopenic. No acute fracture or dislocation within the left shoulder. The le ft clavicle is intact. [id number] osteoarthritis within the left shoulder. Soft tissues are unr emarkable. IMPRESSION: No fracture or dislocation within the left shoulder. ACT 112: Negative or not required by law. Electronically signed by: Wero Moore M.D. 03/04/2022 5:02 PM
--- NOTE | 2022-03-04 17:17 | CT Scan Report ---
HEAD CT NONCONTRAST CT DOSE: 2751.79 mGy.cm HISTORY: confusion, dizziness TECHNIQUE: Multiaxial CT images of the head were performed without the use of intravenous contrast. A utomated exposure control was utilized for this study. A dose lowering technique was utilized adheri ng to the principles of ALARA. Comparison: Head CT 07/06/2021. Findings: The paranasal sinuses and mastoid air cells are clear. The calvarium and skull base are int act. There is no mass, hematoma, midline shift, acute infarct. White matter hypodensity is nonspecifi c but suggestive of microvascular ischemic change. The ventricles and sulci demonstrate mild age-rela carmen involutional changes. Impression: No significant change compared to the prior study. No acute intracranial abnormality. ACT 112: Negative or not required by law. Electronically signed by: Wero Moore M.D. 03/04/2022 5:14 PM
--- NOTE | 2022-03-04 17:29 | CT Scan Report ---
ABDOMEN AND PELVIS CT WITH IV CONTRAST CT DOSE: HISTORY: Nausea. Vomiting. Confusion. Generalized abdominal pain. TECHNIQUE: Multiaxial CT images of the abdomen and pelvis were performed following the use of intrave nous contrast. A dose lowering technique was utilized adhering to the principles of ALARA. COMPARISON STUDY: Abdomen and pelvis CT 11/01/2016. FINDINGS: Mild dependent changes seen at the lung bases. There is a punctate calcified granuloma with in the left lower lobe. No pneumoperitoneum. No pneumatosis. Moderate to severe degenerative disc dis ease within the lower lumbar spine. Stable left paracentral calcified disc herniation at L5-S1 measur ing 9 mm. The liver, gallbladder, pancreas, and adrenal glands unremarkable. There are a few hypodens e lesions within the spleen measuring up to 1.8 cm which remain stable. Normal right kidney. Mild uro thelial thickening within the left renal collecting system and left ureter. There are 2 nonobstructin g stones within the left kidney with the largest within the left renal pelvis measuring 7 mm. No left -sided hydronephrosis. However, there is mild asymmetric perinephric edema and mild hypoperfusion wit hin the left kidney comparison to the right. Therefore, these findings favor a left-sided pyelonephri tis/pyelitis. A 9 mm hypodense lesion within the lower pole the left kidney. This is technically too small to characterize but statistically represents a cyst. The main portal vein is patent. Advanced c alcified plaque within the takeoff of the left renal artery and superior mesenteric artery. Normal ca liber abdominal aorta with moderate calcified plaque. No retroperitoneal or mesenteric lymphadenopath y. The bladder, uterus, bilateral adnexa are unremarkable. No pelvic free fluid. No bowel wall thicke francheska or obstruction. Colonic diverticulosis. No evidence for acute diverticulitis. Normal appendix. IMPRESSION: 1. Mild asymmetric perinephric edema with hypoperfusion of the left kidney. There is also mild urothe lial thickening within the left renal collecting system and left ureter. This most likely represents a left-sided pyelonephritis/pyelitis. Recommend correlation with urinalysis. 2. Left-sided nephrolithiasis. No hydronephrosis. 3. No bowel wall thickening or obstruction. 4. Normal appendix. 5. Colonic diverticulosis. No evidence for acute diverticulitis. 6. Additional findings as described above. ACT 112: Negative or not required by law. Electronically signed by: Wero Moore M.D. 03/04/2022 5:28 PM
--- NOTE | 2022-03-04 17:30 | Electrocardiogram Report ---
Test Reason : Blood Pressure : / mmHG Vent. Rate : 085 BPM Atrial Rate : 085 BPM P-R Int : 178 ms QRS Dur : 084 ms QT Int : 358 ms P-R-T Axes : 049 046 047 degrees QTc Int : 426 ms Sinus rhythm with occasional Premature ventricular complexes Otherwise normal ECG When compared with ECG of 03-AUG-2019 13:42, Premature ventricular complexes are now Present Confirmed by Rudi Deleon ([id number]) on 03/04/2022 5:29:38 PM Referred By: Confirmed By:Rudi Deleon
[2022-03-04] MEDS ORDERED: cefTRIAXone SODIUM 2,000 MG/70 ML BAG IV STA (17:43)
--- NOTE | 2022-03-04 17:50 | Emergency Department Note ---
Impression & Plan Pyelonephritis, Dizziness, Nausea, Confusion ED Provider Note NAME: MAYRA BYRNE AGE: 71 SEX: F ARRIVES VIA: Walk-In INFORMANT: Patient ED PROVIDER(S): Huan Hernandez MD CHIEF COMPLAINT: Weakness PLAN: Disposition: Admit MEDICAL DECISION MAKING: The patient is a pleasant 71-year-old woman with a past medical history of COPD on home oxygen though noncompliant per family, hypertension, migraine headaches who presents to the emergency department a accompanied by her granddaughter for evaluation of worsening body aches, nausea and generalized weakness for the past several days in the setting of feeling unwell over the past couple of weeks. She was seen in the emergency department for migraine headache on 03/02 and was improved after medications. Blood work had been ordered however the patient had declined it at that time. She was treated with IM Compazine and given oral oxycodone. On arrival the patient is ill-appearing but no acute distress, afebrile, HR 100s and otherwise stable vital signs. She appears clinically dry. She has mild suprapubic discomfort without discrete tenderness. She exhibits generalized weakness throughout without focal neurologic deficits. She does have tenderness of the left AC joint with limited range of motion secondary to pain which the patient reports began after having a fall couple of days ago she was getting out of a car and fell onto her left shoulder. She denies any head strike or loss of consciousness WBC 11.5K, nonspecific. H/H 11.7/37.2 improved from prior values. Platelets within normal limits. Chemistry without metabolic acidosis. Electrolytes and LFTs without significant abnormality. High-sensitivity troponin 12.6, within normal limits. TSH within normal limits. CT of the head negative for acute process. CT of the abdomen pelvis demonstrates evidence of left-sided pyelonephrosis/pyelitis. X-ray of the left shoulder negative for fractures or dislocations. Case was discussed with Dr. August, [facility] hospitalist, who will evaluate the patient for admission. Triage Nursing notes reviewed and agree them. Prior medical records reviewed Vital Signs: reviewed and remarkable for tachycardia. Differential diagnosis: Infection, dehydration, metabolic abnormality, hypo/hyperglycemia, electrolyte disturbance, anemia, hypoxia, cardiac sources, intracerebral event, toxicologic, neurologic, as well as other pathologies. ER treatment provided: See below. Diagnostics interpreted by me: ECG: Sinus rhythm with occasional PVCs, 85 bpm, no overt ST elevation or depression, QTC 46, QRS 84 Cardiac Monitoring: An order for continuous cardiac monitoring was placed and demonstrated Sinus rhythm with occasional PVCs, 85 bpm Laboratory studies: See below Imaging studies: See below Consultation(s): Case was discussed with Dr. Angel, [facility] hospitalist, who will evaluate the patient for admission. HPI: The patient is a pleasant 71-year-old woman with a past medical history of COPD on home oxygen though noncompliant per family, hypertension, migraine headaches who presents to the emergency department a accompanied by her granddaughter for evaluation of worsening body aches, nausea and generalized weakness for the past several days in the setting of feeling unwell over the past couple of weeks. She was seen in the emergency department for migraine headache on 03/02 and was improved after medications. Blood work had been ordered however the patient had declined it at that time. She was treated with IM Compazine and given oral oxycodone. ROS: See above HPI for pertinent positives & negatives. A total of 10 systems reviewed and were otherwise negative. VITALS:See Below PHYSICAL EXAMINATION: GENERAL: Awake, alert, fatigued-appearing, in no distress, BMI 41.4. HENT: Normocephalic, atraumatic. Oropharynx with dry mucous membranes and otherwise unremarkable. EYES: Normal conjunctiva. Sclera non-icteric. EOMI. No nystamgus. PEARRL. NECK: Supple. No nuchal rigidity. FROM. No JVD. RESPIRATORY: Clear to auscultation. CARDIAC: Tachycardic rate, normal rhythm. Extremities warm and well perfused. Pulses equal. ABDOMEN: Soft, non-distended. Mild suprapubic discomfort without discrete t enderness to palpation. No rebound or guarding. No masses. RECTAL: Deferred. MUSCULOSKELETAL: Chest examination reveals no tenderness. The back is symmetrical on inspection without obvious abnormality. There is no CVA tenderness to palpation. No joint edema.Tenderness of the left AC joint with limited range of motion secondary to pain LOWER EXTREMITIES: Calves are equal size bilaterally and non-tender. No edema. No discoloration. NEURO: Generalized weakness without overt focal sensory or motor deficits noted. SKIN: No rash or jaundice noted. Huan Hernandez MD Past Med/Surg History Medical History Acid reflux Anemia reason for scheduled EGD/Colonoscopy Chronic low back pain COPD (chronic obstructive pulmonary disease) not well controlled COPD (chronic obstructive pulmonary disease) Depression Diabetes mellitus type 2, diet-controlled NIDDM DMII (diabetes mellitus, type 2) DVT (deep venous thrombosis) after delivery of child > LLE Dyslipidemia HLD (hyperlipidemia) HTN (hypertension) Iron deficiency Kidney stones hx Morbid obesity Nocturnal hypoxia Non-rheumatic aortic stenosis follows with [facility] On home oxygen therapy 2.5-3> just at HS or laying down Osteoarthritis RLS (restless legs syndrome) RLS (restless legs syndrome) Sleep apnea no cpap Spinal stenosis Vertigo Surgical History History of cataract surgery bilat History of lithotripsy History of tooth extraction Hx of tonsillectomy Family History Mother Breast cancer Diabetes Brother Colon cancer Social History Smoking Status: Former smoker Tobacco Type: Cigarettes Second Hand Exposure: No; Hx Alcohol Use: No Hx Substance Use: No Preferred Language: Angolan Communication Ability: Effective Adult Education Manager Required: No Beliefs That Will Affect Care: None marital status: Current Living Situation: Family Current Living Situation Comment: Lives with son and daughter Other Information That Helps Us Care for You: No Feels Safe at Home: Yes Safety Concerns: Feels Safe At This Time Assistive Devices: Denture - Upper, Denture - Lower, Glasses, Hearing Aid - Bi lateral, Oxygen - at Night and Walker Allergies Allergies Allergy/AdvReac Type Severity Reaction Status Date / Time aspirin Allergy Intermediate Patient Verified 03/04/22 19:07 can take upto 81 mg of ASA not any higher- hives NSAIDS (Non-Steroidal Allergy Intermediate hives Verified 03/04/22 19:07 Anti-Inflamma tramadol AdvReac Intermediate URINARY Verified 03/04/22 19:07 RETENTION Home Meds Home Medications Medication Instructions Recorded Confirmed alendronate 70 mg tablet (Fosamax) 70 mg PO WK 06/09/18 03/04/22 amitriptyline 10 mg tablet 10 mg PO HS 06/09/18 03/04/22 aspirin 81 mg tablet,delayed 81 mg PO QAM 10/24/18 07/19/22 release atorvastatin 40 mg tablet 40 mg PO QAM 06/09/18 03/04/22 baclofen 10 mg tablet 10 mg PO BID 06/09/18 03/04/22 bupropion HCl 150 mg 24 hr tablet, 150 mg PO QAM 06/09/18 03/04/22 extended release (Wellbutrin XL) cholecalciferol (vitamin D3) 50 2,000 unit PO QAM 06/09/18 03/04/22 mcg (2,000 unit) capsule (Vitamin D3) docusate sodium 100 mg tablet 100 mg PO BID PRN Constipation 06/09/18 03/04/22 furosemide 20 mg tablet (Lasix) 20 mg PO QAM 06/09/18 03/04/22 mometasone-formoterol HFA 200 2 puff inhalation BID 06/09/18 03/04/22 mcg-5 mcg/actuation aerosol inhaler (Dulera) montelukast 10 mg tablet 10 mg PO PM 06/09/18 03/04/22 (Singulair) nitroglycerin 0.4 mg sublingual 0.4 mg sublingual UD PRN Pain 06/09/18 03/04/22 tablet (Nitrostat) pantoprazole 40 mg tablet,delayed 40 mg PO BID 06/09/18 03/04/22 release (Protonix) potassium chloride 10 mEq 10 meq PO BID 06/09/18 03/04/22 tablet,extended release (Klor-Con) prednisone 10 mg tablet 10 mg PO UD 06/09/18 03/04/22 tiotropium bromide 18 mcg capsule 1 dose inhalation QAM 06/09/18 03/04/22 with inhalation device (Spiriva with HandiHaler) ropinirole 1 mg tablet 1 mg PO HS 08/03/19 03/04/22 albuterol sulfate 2.5 mg inhalation QID 08/04/19 03/04/22 metformin 500 mg tablet 500 mg PO QAM 03/22/20 03/04/22 acetaminophen 500 mg tablet 1,000 mg PO Q8 PRN Pain 01/21/21 03/04/22 ferrous sulfate 325 mg (65 mg 325 mg PO QAM 01/21/21 03/04/22 iron) tablet (iron) fluticasone 250 mcg-salmeterol 50 1 inh inhalation BID 03/04/22 03/04/22 mcg/dose blistr powdr for inhalation oxycodone-acetaminophen 10 mg-325 1 tab PO Q6H PRN Pain 03/04/22 03/04/22 mg tablet Results & Data (ED) Vital Signs Vital Signs - 24 hr 03/04/22 14:06 03/04/22 15:30 03/04/22 15:31 Temperature 37.2 C Temperature Source Temporal Artery Scan Pulse Rate 107 H Pulse Rate [Apical] Pulse Rate from SpO2 Sensor Respiratory Rate 18 Respiratory Effort / Characteristics Respiratory Depth Blood Pressure 155/72 H Blood Pressure [Right Arm] Blood Pressure Mean 99 Blood Pressure Mean [Right Arm] Pulse Oximetry 93 96 92 Oxygen Delivery Method Room Air Room Air Room Air Oxygen Flow Rate Sepsis New/Unexplained Change in Mental Status No Sepsis Action Taken by Nursing No Action Required 03/04/22 15:31 03/04/22 15:34 03/04/22 15:37 Temperature Temperature Source Oral Pulse Rate 86 Pulse Rate [Apical] 85 Pulse Rate from SpO2 Sensor 82 Respiratory Rate 18 19 Respiratory Effort / Characteristics Non-Labored Spontaneous Respiratory Depth Normal Blood Pressure Blood Pressure [Right Arm] 130/61 Blood Pressure Mean Blood Pressure Mean [Right Arm] 84 Pulse Oximetry 95 93 Oxygen Delivery Method Room Air Room Air Oxygen Flow Rate 94 2 Sepsis New/Unexplained Change in Mental Status Sepsis Action Taken by Nursing 03/04/22 16:00 03/04/22 16:01 03/04/22 16:01 Temperature Temperature Source Pulse Rate 109 H 107 H Pulse Rate [Apical] Pulse Rate from SpO2 Sensor 105 H 110 H Respiratory Rate 19 18 Respiratory Effort / Characteristics Respiratory Depth Blood Pressure 156/127 H Blood Pressure [Right Arm] Blood Pressure Mean 136 Blood Pressure Mean [Right Arm] Pulse Oximetry 92 92 Oxygen Delivery Method Oxygen Flow Rate 2 2 Sepsis New/Unexplained Change in Mental Status Sepsis Action Taken by Nursing 03/04/22 16:30 03/04/22 17:08 03/04/22 17:30 Temperature Temperature Source Pulse Rate 99 H 84 80 Pulse Rate [Apical] Pulse Rate from SpO2 Sensor 99 H 84 80 Respiratory Rate 12 9 L 15 Respiratory Effort / Characteristics Respiratory Depth Blood Pressure Blood Pressure [Right Arm] Blood Pressure Mean Blood Pressure Mean [Right Arm] Pulse Oximetry 92 96 98 Oxygen Delivery Method Oxygen Flow Rate 2 2 2 Sepsis New/Unexplained Change in Mental Status Sepsis Action Taken by Nursing 03/04/22 17:52 03/04/22 17:52 03/04/22 17:59 Temperature Temperature Source Pulse Rate 89 Pulse Rate [Apical] Pulse Rate from SpO2 Sensor 88 Respiratory Rate 20 Respiratory Effort / Characteristics Respiratory Depth Blood Pressure 92/69 L 147/77 H Blood Pressure [Right Arm] Blood Pressure Mean 76 100 Blood Pressure Mean [Right Arm] Pulse Oximetry 90 Oxygen Delivery Method Oxygen Flow Rate 2 Sepsis New/Unexplained Change in Mental Status Sepsis Action Taken by Nursing 03/04/22 17:59 03/04/22 18:00 03/04/22 18:00 Temperature Temperature Source Pulse Rate 81 80 Pulse Rate [Apical] Pulse Rate from SpO2 Sensor 84 79 Respiratory Rate 14 14 Respiratory Effort / Characteristics Respiratory Depth Blood Pressure 147/73 H Blood Pressure [Right Arm] Blood Pressure Mean 97 Blood Pressure Mean [Right Arm] Pulse Oximetry 95 94 Oxygen Delivery Method Oxygen Flow Rate 2 2 Sepsis New/Unexplained Change in Mental Status Sepsis Action Taken by Nursing Laboratory Data Attestation: I reviewed the patient's lab results. Result diagrams: 03/04/22 14:45 03/04/22 14:45 Lab Results 03/04/22 03/04/22 03/04/22 Range/Units 14:45 14:45 14:45 WBC 11.55 H (4.8-10.8) K/ul RBC 4.17 (3.93-5.22) M/uL Hgb 11.7 L (12.0-16.0) g/dl Hct 37.2 (34.1-44.9) % MCV 89.2 (80.0-100.0) fL MCH 28.1 (25.0-34.0) pg MCHC 31.5 L (32.0-36.0) g/dL RDW Std Deviation 47.9 H (36.4-46.3) fL RDW Coeff of Isak 14.7 H (11.5-14.5) % Plt Count 135 (130-400) K/uL MPV 12.8 H (9.4-12.3) fL Immature Gran % (Auto) 0.4 % Neut % (Auto) 79.3 % Lymph % (Auto) 6.2 % Pike % (Auto) 13.9 % Eos % (Auto) 0.0 % Baso % (Auto) 0.2 % Neut # (Auto) 9.15 H (1.4-6.5) K/uL Lymph # (Auto) 0.72 L (1.2-3.4) K/uL Pike # (Auto) 1.61 H (0.24-0.82) K/uL Eos # (Auto) 0.00 (0-0.50) K/uL Baso # (Auto) 0.02 (0-0.2) K/uL Immature Gran # (Auto) 0.05 H (0.00-0.02) K/uL PT 11.5 (9.0-12.0) Seconds INR 1.1 (0.9-1.1) APTT 28.9 (21.0-31.0) Seconds PTT Ratio 1.1 Sodium 136 (136-145) mmol/L Potassium 4.1 (3.5-5.1) mmol/L Chloride 103 (98-107) mmol/L Carbon Dioxide 27 (21-32) mmol/L Anion Gap 6 (3-11) BUN 19 (6-23) mg/dl Creatinine 1.18 (0.6-1.2) mg/dl Est Cr Clr Drug Dosing Not Reportable Est GFR ( Amer) 53.7 ml/min Est GFR (Non-Af Amer) 46.4 ml/min BUN/Creatinine Ratio 16.1 (10-20) Glucose 168 H (70-99(Fasting)) mg/dl Calcium 8.4 L (8.5-10.1) mg/dl Magnesium 1.9 (1.7-2.4) mg/dl Total Bilirubin 1.0 (0.2-1.0) mg/dl AST 18 (13-39) U/L ALT 14 (7-52) U/L Alkaline Phosphatase 75 (34-104) U/L Troponin I High Sens (0-14) pg/ml Total Protein 6.7 (6.0-8.3) gm/dl Albumin 3.7 (3.4-5.0) gm/dl Globulin 3.0 (2.5-4.0) gm/dl Albumin/Globulin Ratio 1.2 (0.9-2) Procalcitonin (0-0.5) ng/ml TSH (0.300-4.500) uIu/ml Urine Color Urine Appearance (Clear) Urine pH (4.5-7.5) Ur Specific [place] (1.000-1.030) Urine Protein (Negative) Urine Glucose (UA) (Negative) Urine Ketones (Negative) Urine Blood (Negative) Urine Nitrite (Negative) Urine Bilirubin (Negative) Urine Urobilinogen (Negative) Ur Leukocyte Esterase (Negative) Urine WBC (Auto) (0-5) /hpf Urine RBC (Auto) (0-4) /hpf U Hyaline Cast (Auto) (0-5) /lpf U Epithel Cells (Auto) (0-5) /lpf Urine Bacteria (Auto) (Negative) Urine Opiates Screen (Neg) Ur Methadone, Qual (Neg) Urine Barbiturates (Neg) Ur Phencyclidine (PCP) (Neg) U Amphetamin/Meth Scrn (Neg) MDMA (Ecstasy) Screen (Neg) U Benzodiazepines Scrn (Neg) Ur Cocaine Metabolite (Neg) U Marijuana (THC) Screen (Neg) Ethyl Alcohol mg/dL (<10.0) mg/dl SARS-CoV-2 (PCR) SARS-CoV-2, RNA, NAAT (NEGATIVE) 03/04/22 03/04/22 03/04/22 Range/Units 14:45 14:45 14:45 WBC (4.8-10.8) K/ul RBC (3.93-5.22) M/uL Hgb (12.0-16.0) g/dl Hct (34.1-44.9) % MCV (80.0-100.0) fL MCH (25.0-34.0) pg MCHC (32.0-36.0) g/dL RDW Std Deviation (36.4-46.3) fL RDW Coeff of Isak (11.5-14.5) % Plt Count (130-400) K/uL MPV (9.4-12.3) fL Immature Gran % (Auto) % Neut % (Auto) % Lymph % (Auto) % Pike % (Auto) % Eos % (Auto) % Baso % (Auto) % Neut # (Auto) (1.4-6.5) K/uL Lymph # (Auto) (1.2-3.4) K/uL Pike # (Auto) (0.24-0.82) K/uL Eos # (Auto) (0-0.50) K/uL Baso # (Auto) (0-0.2) K/uL Immature Gran # (Auto) (0.00-0.02) K/uL PT (9.0-12.0) Seconds INR (0.9-1.1) APTT (21.0-31.0) Seconds PTT Ratio Sodium (136-145) mmol/L Potassium (3.5-5.1) mmol/L Chloride (98-107) mmol/L Carbon Dioxide (21-32) mmol/L Anion Gap (3-11) BUN (6-23) mg/dl Creatinine (0.6-1.2) mg/dl Est Cr Clr Drug Dosing Est GFR ( Amer) ml/min Est GFR (Non-Af Amer) ml/min BUN/Creatinine Ratio (10-20) Glucose (70-99(Fasting)) mg/dl Calcium (8.5-10.1) mg/dl Magnesium (1.7-2.4) mg/dl Total Bilirubin (0.2-1.0) mg/dl AST (13-39) U/L ALT (7-52) U/L Alkaline Phosphatase (34-104) U/L Troponin I High Sens 12.6 (0-14) pg/ml Total Protein (6.0-8.3) gm/dl Albumin (3.4-5.0) gm/dl Globulin (2.5-4.0) gm/dl Albumin/Globulin Ratio (0.9-2) Procalcitonin (0-0.5) ng/ml TSH 0.814 (0.300-4.500) uIu/ml Urine Color Urine Appearance (Clear) Urine pH (4.5-7.5) Ur Specific [place] (1.000-1.030) Urine Protein (Negative) Urine Glucose (UA) (Negative) Urine Ketones (Negative) Urine Blood (Negative) Urine Nitrite (Negative) Urine Bilirubin (Negative) Urine Urobilinogen (Negative) Ur Leukocyte Esterase (Negative) Urine WBC (Auto) (0-5) /hpf Urine RBC (Auto) (0-4) /hpf U Hyaline Cast (Auto) (0-5) /lpf U Epithel Cells (Auto) (0-5) /lpf Urine Bacteria (Auto) (Negative) Urine Opiates Screen (Neg) Ur Methadone, Qual (Neg) Urine Barbiturates (Neg) Ur Phencyclidine (PCP) (Neg) U Amphetamin/Meth Scrn (Neg) MDMA (Ecstasy) Screen (Neg) U Benzodiazepines Scrn (Neg) Ur Cocaine Metabolite (Neg) U Marijuana (THC) Screen (Neg) Ethyl Alcohol mg/dL < 10.0 (<10.0) mg/dl SARS-CoV-2 (PCR) SARS-CoV-2, RNA, NAAT (NEGATIVE) 03/04/22 03/04/22 03/04/22 Range/Units 14:45 16:06 16:06 WBC (4.8-10.8) K/ul RBC (3.93-5.22) M/uL Hgb (12.0-16.0) g/dl Hct (34.1-44.9) % MCV (80.0-100.0) fL MCH (25.0-34.0) pg MCHC (32.0-36.0) g/dL RDW Std Deviation (36.4-46.3) fL RDW Coeff of Isak (11.5-14.5) % Plt Count (130-400) K/uL MPV (9.4-12.3) fL Immature Gran % (Auto) % Neut % (Auto) % Lymph % (Auto) % Pike % (Auto) % Eos % (Auto) % Baso % (Auto) % Neut # (Auto) (1.4-6.5) K/uL Lymph # (Auto) (1.2-3.4) K/uL Pike # (Auto) (0.24-0.82) K/uL Eos # (Auto) (0-0.50) K/uL Baso # (Auto) (0-0.2) K/uL Immature Gran # (Auto) (0.00-0.02) K/uL PT (9.0-12.0) Seconds INR (0.9-1.1) APTT (21.0-31.0) Seconds PTT Ratio Sodium (136-145) mmol/L Potassium (3.5-5.1) mmol/L Chloride (98-107) mmol/L Carbon Dioxide (21-32) mmol/L Anion Gap (3-11) BUN (6-23) mg/dl Creatinine (0.6-1.2) mg/dl Est Cr Clr Drug Dosing Est GFR ( Amer) ml/min Est GFR (Non-Af Amer) ml/min BUN/Creatinine Ratio (10-20) Glucose (70-99(Fasting)) mg/dl Calcium (8.5-10.1) mg/dl Magnesium (1.7-2.4) mg/dl Total Bilirubin (0.2-1.0) mg/dl AST (13-39) U/L ALT (7-52) U/L Alkaline Phosphatase (34-104) U/L Troponin I High Sens (0-14) pg/ml Total Protein (6.0-8.3) gm/dl Albumin (3.4-5.0) gm/dl Globulin (2.5-4.0) gm/dl Albumin/Globulin Ratio (0.9-2) Procalcitonin 0.42 (0-0.5) ng/ml TSH (0.300-4.500) uIu/ml Urine Color Urine Appearance (Clear) Urine pH (4.5-7.5) Ur Specific [place] (1.000-1.030) Urine Protein (Negative) Urine Glucose (UA) (Negative) Urine Ketones (Negative) Urine Blood (Negative) Urine Nitrite (Negative) Urine Bilirubin (Negative) Urine Urobilinogen (Negative) Ur Leukocyte Esterase (Negative) Urine WBC (Auto) (0-5) /hpf Urine RBC (Auto) (0-4) /hpf U Hyaline Cast (Auto) (0-5) /lpf U Epithel Cells (Auto) (0-5) /lpf Urine Bacteria (Auto) (Negative) Urine Opiates Screen (Neg) Ur Methadone, Qual (Neg) Urine Barbiturates (Neg) Ur Phencyclidine (PCP) (Neg) U Amphetamin/Meth Scrn (Neg) MDMA (Ecstasy) Screen (Neg) U Benzodiazepines Scrn (Neg) Ur Cocaine Metabolite (Neg) U Marijuana (THC) Screen (Neg) Ethyl Alcohol mg/dL (<10.0) mg/dl SARS-CoV-2 (PCR) Cancelled SARS-CoV-2, RNA, NAAT NEGATIVE (NEGATIVE) 03/04/22 03/04/22 Range/Units 17:50 17:50 WBC (4.8-10.8) K/ul RBC (3.93-5.22) M/uL Hgb (12.0-16.0) g/dl Hct (34.1-44.9) % MCV (80.0-100.0) fL MCH (25.0-34.0) pg MCHC (32.0-36.0) g/dL RDW Std Deviation (36.4-46.3) fL RDW Coeff of Isak (11.5-14.5) % Plt Count (130-400) K/uL MPV (9.4-12.3) fL Immature Gran % (Auto) % Neut % (Auto) % Lymph % (Auto) % Pike % (Auto) % Eos % (Auto) % Baso % (Auto) % Neut # (Auto) (1.4-6.5) K/uL Lymph # (Auto) (1.2-3.4) K/uL [place] # (Auto) (0.24-0.82) K/uL Eos # (Auto) (0-0.50) K/uL Baso # (Auto) (0-0.2) K/uL Immature Gran # (Auto) (0.00-0.02) K/uL PT (9.0-12.0) Seconds INR (0.9-1.1) APTT (21.0-31.0) Seconds PTT Ratio Sodium (136-145) mmol/L Potassium (3.5-5.1) mmol/L Chloride (98-107) mmol/L Carbon Dioxide (21-32) mmol/L Anion Gap (3-11) BUN (6-23) mg/dl Creatinine (0.6-1.2) mg/dl Est Cr Clr Drug Dosing Est GFR ( Amer) ml/min Est GFR (Non-Af Amer) ml/min BUN/Creatinine Ratio (10-20) Glucose (70-99(Fasting)) mg/dl Calcium (8.5-10.1) mg/dl Magnesium (1.7-2.4) mg/dl Total Bilirubin (0.2-1.0) mg/dl AST (13-39) U/L ALT (7-52) U/L Alkaline Phosphatase (34-104) U/L Troponin I High Sens (0-14) pg/ml Total Protein (6.0-8.3) gm/dl Albumin (3.4-5.0) gm/dl Globulin (2.5-4.0) gm/dl Albumin/Globulin Ratio (0.9-2) Procalcitonin (0-0.5) ng/ml TSH (0.300-4.500) uIu/ml Urine Color Yellow Urine Appearance Cloudy A (Clear) Urine pH 5.5 (4.5-7.5) Ur Specific [place] > 1.045 H (1.000-1.030) Urine Protein 1+ H (Negative) Urine Glucose (UA) Negative (Negative) Urine Ketones Negative (Negative) Urine Blood Trace H (Negative) Urine Nitrite Positive A (Negative) Urine Bilirubin Negative (Negative) Urine Urobilinogen Positive H (Negative) Ur Leukocyte Esterase 2+ H (Negative) Urine WBC (Auto) >30 H (0-5) /hpf Urine RBC (Auto) 5-10 H (0-4) /hpf U Hyaline Cast (Auto) 1-5 (0-5) /lpf U Epithel Cells (Auto) >30 H (0-5) /lpf Urine Bacteria (Auto) 4+ H (Negative) Urine Opiates Screen Neg (Neg) Ur Methadone, Qual Neg (Neg) Urine Barbiturates Neg (Neg) Ur Phencyclidine (PCP) Neg (Neg) U Amphetamin/Meth Scrn Neg (Neg) MDMA (Ecstasy) Screen Pos H (Neg) U Benzodiazepines Scrn Neg (Neg) Ur Cocaine Metabolite Neg (Neg) U Marijuana (THC) Screen Neg (Neg) Ethyl Alcohol mg/dL (<10.0) mg/dl SARS-CoV-2 (PCR) SARS-CoV-2, RNA, NAAT (NEGATIVE) Administered Medications Albuterol (Albut/Ipratrop 3mg/0.5mg Neb 3 Ml Vial) 3 ml NEB Q4R [facility]; Protocol Stop: 04/03/22 20:12 Last Admin: 03/04/22 23:19 Dose: 3 ml Documented By: Admin: 03/04/22 20:38 Dose: 3 ml Documented By: BWT Amitriptyline HCl (Amitriptyline Hcl 10 Mg Tab) 10 mg PO HS NATANAEL Stop: 04/03/22 20:59 Last Admin: 03/04/22 21:25 Dose: 10 mg Documented By: SG Baclofen (Baclofen 10 Mg Tab) 10 mg PO BID NATANAEL Stop: 04/03/22 20:59 Last Admin: 03/04/22 21:25 Dose: 10 mg Documented By: SG Enoxaparin Sodium (Enoxaparin Inj 40 Mg/0.4 Ml Syr) 40 mg SQ Q12H NATANAEL Stop: 04/03/22 20:59 Last Admin: 03/04/22 21:23 Dose: 40 mg Documented By: SG Fluticasone/Vilanterol (Fluticasone/Vilanterol 200/25mcg 14 Puffs/Inhaler) 1 pu ffs INH PM NATANAEL; Protocol Stop: 04/03/22 20:59 Last Admin: 03/04/22 21:25 Dose: 1 puffs Documented By: SG Insulin Aspart (Insulin Aspart Per Unit) 0 units SC ACHS NATANAEL Stop: 04/03/22 20:59 Last Admin: 03/04/22 20:57 Dose: Not Given Documented By: CHANTEL Montelukast Sodium (Montelukast Sodium 10 Mg Tablet) 10 mg PO PM NATANAEL Stop: 04/03/22 20:59 Last Admin: 03/04/22 21:24 Dose: 10 mg Documented By: CHANTEL Pantoprazole Sodium (Pantoprazole 40 Mg Tab) 40 mg PO BID NATANAEL Stop: 04/03/22 20:59 Last Admin: 03/04/22 21:25 Dose: 40 mg Documented By: CHANTEL Potassium Chloride (Potassium Chloride 10 Meq Tabcr) 10 meq PO BID NATANAEL Stop: 04/03/22 20:59 Last Admin: 03/04/22 21:24 Dose: 10 meq Documented By: CHANTEL Ropinirole HCl (Ropinirole Hcl 1 Mg Tablet) 1 mg PO HS NTAANAEL Stop: 04/03/22 20:59 Last Admin: 03/04/22 21:24 Dose: 1 mg Documented By: SG Discontinued Medications Acetaminophen (Acetaminophen 500 Mg Tab) 1,000 mg PO Q8H PRN PRN Reason: Mild-moderate Pain Stop: 04/03/22 19:32 Last Admin: 03/04/22 20:18 Dose: 1,000 mg Documented By: SG Sodium Chloride (Nss 1000ml) 1,000 mls @ 999 mls/hr IV .Q1H1M ONE Stop: 03/04/22 16:49 Last Infusion: 03/04/22 17:07 Dose: 0 mls/hr Documented By: Admin: 03/04/22 16:02 Dose: 999 mls/hr Documented By: ABDOULAYE Famotidine (Pepcid 20mg Iv Push) 20 mg in 5 mls @ 2.5 mls/min IV NOW STA Stop: 03/04/22 15:50 Last Admin: 03/04/22 16:01 Dose: 2.5 mls/min Documented By: ABDOULAYE Ceftriaxone Sodium (Rocephin) 2,000 mg in 70 mls @ 140 mls/hr IV NOW STA Stop: 03/04/22 18:12 Last Infusion: 03/04/22 20:42 Dose: 0 mls/hr Documented By: Admin: 03/04/22 19:30 Dose: 140 mls/hr Documented By: ABDOULAYE Ioversol (Optiray 320 100ml) 94 ml IV ONCE ONE Stop: 03/04/22 17:02 Last Admin: 03/04/22 17:02 Dose: 94 ml Documented By: REJI Ondansetron HCl (Ondansetron Inj 2 Mg/Ml 2 Ml Vial) 4 mg IV NOW STA Stop: 03/04/22 15:50 Last Admin: 03/04/22 16:01 Dose: 4 mg Documented By: ABDOULAYE Imaging Data Radiologist's Impression: Abdomen/Pelvis CT 03/04/22 15:[address] WITH IV CONTRAST CT DOSE: HISTORY: Nausea. Vomiting. Confusion. Generalized abdominal pain. TECHNIQUE: Multiaxial CT images of the abdomen and pelvis were performed following the use of intravenous contrast. A dose lowering technique was utilized adhering to the principles of ALARA. COMPARISON STUDY: Abdomen and pelvis CT 11/01/2016. FINDINGS: Mild dependent changes seen at the lung bases. There is a punctate calcified granuloma within the left lower lobe. No pneumoperitoneum. No pneumatosis. Moderate to severe degenerative disc disease within the lower lumbar spine. 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 The liver, gallbladder, pancreas, and adrenal glands unremarkable. There are a few hypodense lesions within the spleen measuring up to 1.8 cm which remain stable. Normal right kidney. Mild urothelial thickening within the left renal collecting system and left ureter. There are 2 nonobstructing stones within the left kidney with the largest within the left renal pelvis measuring 7 mm. No left-sided hydronephrosis. However, there is mild asymmetric perinephric edema and mild hypoperfusion within the left kidney comparison to the right. Therefore, these findings favor a left-sided pyelonephritis/pyelitis. A 9 mm hypodense lesion within the lower pole the left kidney. This is technically too small to characterize but statistically represents a cyst. The main portal vein is patent. Advanced calcified plaque within the takeoff of the left renal artery and superior mesenteric artery. Normal caliber abdominal aorta with moderate calcified plaque. No retroperitoneal or mesenteric lymphadenopathy. The bladder, uterus, bilateral adnexa are unremarkable. No pelvic free fluid. No bowel wall thickening or obstruction. Colonic diverticulosis. No evidence for acute diverticulitis. Normal appendix. IMPRESSION: 1. Mild asymmetric perinephric edema with hypoperfusion of the left kidney. There is also mild urothelial thickening within the left renal collecting system and left ureter. This most likely represents a left-sided pyelonephritis/pyelitis. Recommend correlation with urinalysis. 2. Left-sided nephrolithiasis. No hydronephrosis. 3. No bowel wall thickening or obstruction. 4. Normal appendix. 5. Colonic diverticulosis. No evidence for acute diverticulitis. 6. Additional findings as described above. ACT 112: Negative or not required by law. Electronically signed by: Wero Moore M.D. 03/04/2022 5:28 PM Chest X-Ray 03/04/22 15:47 XR chest 1V portable CLINICAL HISTORY: n/v, cough TECHNIQUE: Single frontal radiograph of the chest was obtained. Comparison: None available at the time of this dictation. FINDINGS: Exam is limited by underpenetration. Cardiomegaly is noted. Prominence and cephalization of the vasculature is seen. No evidence of pleural effusion or pneumothorax. IMPRESSION: No acute chest disease. ACT 112: Negative or not required by law. Electronically signed by: El Romeo M.D. 03/04/2022 5:[address] 03/04/22 15:[address] DOSE: 2751.79 mGy.cm HISTORY: confusion, dizziness TECHNIQUE: Multiaxial CT images of the head were performed without the use of intravenous contrast. Automated exposure control was utilized for this study. A dose lowering technique was utilized adhering to the principles of ALARA. Comparison: Head CT 07/06/2021. Findings: The paranasal sinuses and mastoid air cells are clear. The calvarium and skull base are intact. There is no mass, hematoma, midline shift, acute infarct. White matter hypodensity is nonspecific but suggestive of microvascular ischemic change. The ventricles and sulci demonstrate mild age-related involutional changes. Impression: No significant change compared to the prior study. No acute intracranial abnormality. ACT 112: Negative or not required by law. Electronically signed by: Wero Moore M.D. 03/04/2022 5:14 PM Shoulder X-Ray 03/04/22 15:50 XR shoulder LT min 2V routine CLINICAL HISTORY: Fall with left shoulder pain. COMPARISON STUDY: The left shoulder 06/01/2015. FINDINGS: The bones are osteopenic. No acute fracture or dislocation within the left shoulder. The left clavicle is intact. [id number] osteoarthritis wit hin the left shoulder. Soft tissues are unremarkable. IMPRESSION: No fracture or dislocation within the left shoulder. ACT 112: Negative or not required by law. Electronically signed by: Wero Moore M.D. 03/04/2022 5:02 PM Discharge Plan Visit Data Chief Complaint: Confusion Stated Complaint: LOSS OF APPETITE, CONFUSION ED Provider: Huan Hernandez Discharge Problem: Pyelonephritis, Dizziness, Nausea, Confusion Patient Disposition: Admitted As Inpatient Discharge Instructions Interventions: ED Discharge Assessment Last Done: 03/04/22 20:02
[2022-03-04 18:29] LABS: Appearance Urine Cloudy (Clear); Bacteria Urine Automated 4+ (Negative); Bilirubin Urine Negative (Negative); Blood Urine Trace (Negative); Color Urine Yellow; Epithelial Cell Urine Auto >30 /lpf (0-5); Glucose Urine UA Negative (Negative); Ketones Urine Negative (Negative); Leukocyte Esterase Urine 2+ (Negative); Nitrite Urine Positive (Negative); Protein Urine 1+ (Negative); Specific Gravity Urine > 1.045 (1.000-1.030); Urobilinogen Urine Positive (Negative); WBC Urine Automated >30 /hpf (0-5); pH Urine 5.5 (4.5-7.5)
[2022-03-04 18:38] LABS: Amphetamines+Metham, Urine Neg (Neg); Barbiturates, Urine Neg (Neg); Benzodiazepine, Urine Neg (Neg); Cocaine, Urine Neg (Neg); MDMA (Ecstacy), Urine Pos (Neg); Methadone, Urine Neg (Neg); Opiate, Urine Neg (Neg); Phencyclidine, Urine Neg (Neg)
[2022-03-04] MEDS ORDERED: ACETAMINOPHEN 500 MG TAB PO PRN (19:33)
[2022-03-04] MEDS ORDERED: DOCUSATE SODIUM 100 MG CAP PO PRN (19:40)
--- NOTE | 2022-03-04 19:44 | History & Physical Report ---
Date of Service March 04, 2022 Assessment & Plan (1) Pyelonephritis of left kidney: (2) COPD (chronic obstructive pulmonary disease): (3) DMII (diabetes mellitus, type 2): (4) HTN (hypertension): (5) HLD (hyperlipidemia): (6) Depression: (7) RLS (restless legs syndrome): History of Present Illness Primary Care Provider: Moreno العلي MD Pt is a 71 y/o F with hx of DMII, COPD on home oxygen at night (2.5-3L), HTN, Moderate , HLD, RLS, Osteoporosis, Depression, Spinal stenosis, on chronic pain medication came to the ER with 3 days hx of headache, 2 episodes of nausea with vomiting (NBNB). She also complain of generalized weakness. Pt denied any mid back pain, dysuria, hematuria but did complained of urinary frequency (chronic per pt). Allergies Allergy/AdvReac Type Severity Reaction Status Date / Time aspirin Allergy Intermediate Patient Verified 03/04/22 19:07 can take upto 81 mg of ASA not any higher- hives NSAIDS (Non-Steroidal Allergy Intermediate hives Verified 03/04/22 19:07 Anti-Inflamma tramadol AdvReac Intermediate URINARY Verified 03/04/22 19:07 RETENTION Home Medications Medication Instructions Recorded Confirmed Type alendronate 70 mg tablet (Fosamax) 70 mg PO WK 06/09/18 03/04/22 History amitriptyline 10 mg tablet 10 mg PO HS 06/09/18 03/04/22 History aspirin 81 mg tablet,delayed 81 mg PO QAM 06/09/18 03/04/22 History release atorvastatin 40 mg tablet 40 mg PO QAM 06/09/18 03/04/22 History baclofen 10 mg tablet 10 mg PO BID 06/09/18 03/04/22 History bupropion HCl 150 mg 24 hr tablet, 150 mg PO QAM 06/09/18 03/04/22 History extended release (Wellbutrin XL) cholecalciferol (vitamin D3) 50 2,000 unit PO QAM 06/09/18 03/04/22 History mcg (2,000 unit) capsule (Vitamin D3) docusate sodium 100 mg tablet 100 mg PO BID PRN Constipation 06/09/18 03/04/22 History furosemide 20 mg tablet (Lasix) 20 mg PO QAM 06/09/18 03/04/22 History mometasone-formoterol HFA 200 2 puff inhalation BID 06/09/18 03/04/22 History mcg-5 mcg/actuation aerosol inhaler (Dulera) montelukast 10 mg tablet 10 mg PO PM 06/09/18 03/04/22 History (Singulair) nitroglycerin 0.4 mg sublingual 0.4 mg sublingual UD PRN Pain 06/09/18 03/04/22 History tablet (Nitrostat) pantoprazole 40 mg tablet,delayed 40 mg PO BID 06/09/18 03/04/22 History release (Protonix) potassium chloride 10 mEq 10 meq PO BID 06/09/18 03/04/22 History tablet,extended release (Klor-Con) prednisone 10 mg tablet 10 mg PO UD 06/09/18 03/04/22 History tiotropium bromide 18 mcg capsule 1 dose inhalation QAM 06/09/18 03/04/22 History with inhalation device (Spiriva with HandiHaler) ropinirole 1 mg tablet 1 mg PO HS 08/03/19 03/04/22 History albuterol sulfate 2.5 mg inhalation QID 08/04/19 03/04/22 History metformin 500 mg tablet 500 mg PO QAM 03/22/20 03/04/22 History acetaminophen 500 mg tablet 1,000 mg PO Q8 PRN Pain 01/21/21 03/04/22 History ferrous sulfate 325 mg (65 mg 325 mg PO QAM 01/21/21 03/04/22 History iron) tablet (iron) fluticasone 250 mcg-salmeterol 50 1 inh inhalation BID 03/04/22 03/04/22 History mcg/dose blistr powdr for inhalation oxycodone-acetaminophen 10 mg-325 1 tab PO Q4 PRN Pain 03/04/22 03/04/22 History mg tablet Past Med/Surg History Medical History (Updated 03/04/22 @ 19:42 by Priyanka Angel MD) Acid reflux Anemia reason for scheduled EGD/Colonoscopy Chronic low back pain COPD (chronic obstructive pulmonary disease) not well controlled COPD (chronic obstructive pulmonary disease) Depression Diabetes mellitus type 2, diet-controlled NIDDM DMII (diabetes mellitus, type 2) DVT (deep venous thrombosis) after delivery of child > LLE Dyslipidemia HLD (hyperlipidemia) HTN (hypertension) Iron deficiency Kidney stones hx Morbid obesity Nocturnal hypoxia Non-rheumatic aortic stenosis follows with [facility] On home oxygen therapy 2.5-3> just at HS or laying down Osteoarthritis RLS (restless legs syndrome) RLS (restless legs syndrome) Sleep apnea no cpap Spinal stenosis Vertigo Surgical History History of cataract surgery bilat History of lithotripsy History of tooth extraction Hx of tonsillectomy Family History Mother Breast cancer Diabetes Brother Colon cancer Social History Smoking Status: Former smoker Tobacco Type: Cigarettes Second Hand Exposure: No; Hx Alcohol Use: No Hx Substance Use: No Preferred Language: Surinamese Communication Ability: Effective 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 Normocephalic and atraumatic, Normal Conjunctiva, EOMI, Sclera is non- icteric Lungs:.good air entry b/l with diffuse expiratory wheezing Heart:. Normal S1, S2, no murmur Abdominal:.obese abd, Soft, NT MSK:.b/l LE pitting edema Psych:. AAOx3, normal affect Results & Data Results & Data ([facility]) Vital Signs (Past 12 Hours) Vital Signs Temp Pulse Pulse Resp BP BP Pulse Ox 03/04/22 18:30 80 17 98 03/04/22 18:00 80 14 94 03/04/22 18:00 147/73 H 03/04/22 17:59 81 14 95 03/04/22 17:59 147/77 H 03/04/22 17:52 92/69 L 03/04/22 17:52 89 20 90 03/04/22 17:30 80 15 98 03/04/22 17:08 84 9 L 96 03/04/22 16:30 99 H 12 92 03/04/22 16:01 156/127 H 03/04/22 16:01 107 H 18 92 03/04/22 16:00 109 H 19 92 03/04/22 15:37 86 19 93 03/04/22 15:34 85 18 130/61 95 03/04/22 15:31 03/04/22 15:31 92 03/04/22 15:30 96 03/04/22 14:06 37.2 C 107 H 18 155/72 H 93 O2 Del Method O2 Flow Rate 03/04/22 18:30 2 03/04/22 18:00 2 03/04/22 18:00 03/04/22 17:59 2 03/04/22 17:59 03/04/22 17:52 03/04/22 17:52 2 03/04/22 17:30 2 03/04/22 17:08 2 03/04/22 16:30 2 03/04/22 16:01 03/04/22 16:01 2 03/04/22 16:00 2 03/04/22 15:37 2 03/04/22 15:34 Room Air 03/04/22 15:31 Room Air 94 03/04/22 15:31 Room Air 03/04/22 15:30 Room Air 03/04/22 14:06 Room Air Laboratory Results Short CBC 03/04/22 Range/Units 14:45 WBC 11.55 H (4.8-10.8) K/ul Hgb 11.7 L (12.0-16.0) g/dl Hct 37.2 (34.1-44.9) % Plt Count 135 (130-400) K/uL BMP 03/04/22 14:45 Sodium 136 Potassium 4.1 Chloride 103 Carbon Dioxide 27 BUN 19 Creatinine 1.18 Glucose 168 H Calcium 8.4 L Liver Function 03/04/22 Range/Units 14:45 Total Bilirubin 1.0 (0.2-1.0) mg/dl AST 18 (13-39) U/L ALT 14 (7-52) U/L Alkaline Phosphatase 75 (34-104) U/L Albumin 3.7 (3.4-5.0) gm/dl Urine 03/04/22 Range/Units 17:50 Urine Color Yellow Urine Appearance Cloudy A (Clear) Urine pH 5.5 (4.5-7.5) Ur Specific [place] > 1.045 H (1.000-1.030) Urine Protein 1+ H (Negative) Urine Glucose (UA) Negative (Negative) Diagnostic Findings Abdomen/Pelvis CT 03/04/22 15:[address] WITH IV CONTRAST CT DOSE: HISTORY: Nausea. Vomiting. Confusion. Generalized abdominal pain. TECHNIQUE: Multiaxial CT images of the abdomen and pelvis were performed following the use of intravenous contrast. A dose lowering technique was utilized adhering to the principles of ALARA. COMPARISON STUDY: Abdomen and pelvis CT 11/01/2016. FINDINGS: Mild dependent changes seen at the lung bases. There is a punctate calcified granuloma within the left lower lobe. No pneumoperitoneum. No pneumatosis. Moderate to severe degenerative disc disease within the lower lumbar spine. 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 The liver, gallbladder, pancreas, and adrenal glands unremarkable. There are a few hypodense lesions within the spleen measuring up to 1.8 cm which remain stable. Normal right kidney. Mild urothelial thickening within the left renal collecting system and left ureter. There are 2 nonobstructing stones within the left kidney with the largest within the left renal pelvis measuring 7 mm. No left-sided hydronephrosis. However, there is mild asymmetric perinephric edema and mild hypoperfusion within the left kidney comparison to the right. Therefore, these findings favor a left-sided pyelonephritis/pyelitis. A 9 mm hypodense lesion within the lower pole the left kidney. This is technically too small to characterize but statistically represents a cyst. The main portal vein is patent. Advanced calcified plaque within the takeoff of the left renal artery and superior mesenteric artery. Normal caliber abdominal aorta with moderate calcified plaque. No retroperitoneal or mesenteric lymphadenopathy. The bladder, uterus, bilateral adnexa are unremarkable. No pelvic free fluid. No bowel wall thickening or obstruction. Colonic diverticulosis. No evidence for acute diverticulitis. Normal appendix. IMPRESSION: 1. Mild asymmetric perinephric edema with hypoperfusion of the left kidney. There is also mild urothelial thickening within the left renal collecting system and left ureter. This most likely represents a left-sided pyelonephritis/pyelitis. Recommend correlation with urinalysis. 2. Left-sided nephrolithiasis. No hydronephrosis. 3. No bowel wall thickening or obstruction. 4. Normal appendix. 5. Colonic diverticulosis. No evidence for acute diverticulitis. 6. Additional findings as described above. ACT 112: Negative or not required by law. Electronically signed by: Wero Moore M.D. 03/04/2022 5:28 PM Chest X-Ray 03/04/22 15:47 XR chest 1V portable CLINICAL HISTORY: n/v, cough TECHNIQUE: Single frontal radiograph of the chest was obtained. Comparison: None available at the time of this dictation. FINDINGS: Exam is limited by underpenetration. Cardiomegaly is noted. Prominence and cephalization of the vasculature is seen. No evidence of pleural effusion or pneumothorax. IMPRESSION: No acute chest disease. ACT 112: Negative or not required by law. Electronically signed by: El Romeo M.D. 03/04/2022 5:[address] 03/04/22 15:[address] DOSE: 2751.79 mGy.cm HISTORY: confusion, dizziness TECHNIQUE: Multiaxial CT images of the head were performed without the use of i ntravenous contrast. Automated exposure control was utilized for this study. A dose lowering technique was utilized adhering to the principles of ALARA. Comparison: Head CT 07/06/2021. Findings: The paranasal sinuses and mastoid air cells are clear. The calvarium and skull base are intact. There is no mass, hematoma, midline shift, acute infarct. White matter hypodensity is nonspecific but suggestive of microvascular ischemic change. The ventricles and sulci demonstrate mild age-related involutional changes. Impression: No significant change compared to the prior study. No acute intracranial abnormality. ACT 112: Negative or not required by law. Electronically signed by: Wero Moore M.D. 03/04/2022 5:14 PM Shoulder X-Ray 03/04/22 15:50 XR shoulder LT min 2V routine CLINICAL HISTORY: Fall with left shoulder pain. COMPARISON STUDY: The left shoulder 06/01/2015. FINDINGS: The bones are osteopenic. No acute fracture or dislocation within the left shoulder. The left clavicle is intact. [id number] osteoarthritis within the left shoulder. Soft tissues are unremarkable. IMPRESSION: No fracture or dislocation within the left shoulder. ACT 112: Negative or not required by law. Electronically signed by: Wero Moore M.D. 03/04/2022 5:02 PM Code Status & VTE Plan VTE Prophylaxis Plan VTE Prophylaxis will be ordered: Yes Supervising Physician Co-Signing Physician Notes L pyelonephritis: -will continue ceftriaxone -UCx pending -Cr wnl -will get AM CBC and BMP - admit to obs -will get PT/OT COPD: -acute wheezing on exam -will do standing duoneb q6hrs -CXR: no acute finding - will continue nocturnal oxygen supplement DMII: -hold oral meds -continue ISS HTN/Depression/RLS/HLD/Spinal stenosis: -continue home meds Diet:Diabetic and heart healthy DVT PPx:Lovenox Code Status:FULL CODE Emergency Contact: SonEsteban [phone]
[2022-03-04] MEDS ORDERED: DEXTROSE 50% 50 ML SYRINGE IV PRN (20:13)
[2022-03-04] MEDS ORDERED: CARBOHYDRATES FOR HYPOGLYCEMIA PO PRN (20:13)
[2022-03-04] MEDS ORDERED: GLUCOSE 40% GEL 15 GM TUBE PO PRN (20:13)
[2022-03-04] MEDS ORDERED: POLYETHYLENE (MIRALAX) 17 GM PACK PO PRN (20:13)
[2022-03-04] MEDS ORDERED: ONDANSETRON INJ 2 MG/ML 2 ML VIAL IV PRN (20:13)
[2022-03-04] MEDS ORDERED: ACETAMINOPHEN 325 MG TAB PO PRN (20:13)
[2022-03-04] MEDS ORDERED: GLUCAGON FOR INJ 1 MG VIAL SQ PRN (20:13)
[2022-03-04] MEDS ORDERED: GLUCOSE 10 TAB/TUBE PO PRN (20:13)
[2022-03-04] MEDS: ALBUT/IPRATROP 3MG/0.5MG NEB 3 ML VIAL NEB SCH ×2 (20:38→23:19)
[2022-03-04] MEDS: INSULIN ASPART PER UNIT SC SCH (20:57)
[2022-03-04] MEDS ORDERED: FLUTICASONE/SALMETEROL 250/50 (ADVAIR) 14 PUFF/1 INHALER INH SCH (21:00)
[2022-03-04] MEDS: ENOXAPARIN INJ 40 MG/0.4 ML SYR SQ SCH (21:23)
[2022-03-04] MEDS: POTASSIUM CHLORIDE 10 MEQ TABCR PO SCH (21:24)
[2022-03-04] MEDS: rOPINIRole HCL 1 MG TABLET PO SCH (21:24)
[2022-03-04] MEDS: MONTELUKAST SODIUM 10 MG TABLET PO SCH (21:24)
[2022-03-04] MEDS: FLUTICASONE/VILANTEROL 200/25MCG 14 PUFFS/INHALER INH SCH (21:25)
[2022-03-04] MEDS: BACLOFEN 10 MG TAB PO SCH (21:25)
[2022-03-04] MEDS: PANTOprazole 40 MG TAB PO SCH (21:25)
[2022-03-04] MEDS: AMITRIPTYLINE HCL 10 MG TAB PO SCH (21:25)
[2022-03-05] MEDS: ALBUT/IPRATROP 3MG/0.5MG NEB 3 ML VIAL NEB SCH ×6 (03:15→22:16)
[2022-03-05] MEDS: PANTOprazole 40 MG TAB PO SCH ×2 (07:31→19:52)
[2022-03-05] MEDS: buPROPion XL 150 MG TABCR PO SCH (07:32)
[2022-03-05] MEDS: ATORVASTATIN 40 MG TAB PO SCH (07:32)
[2022-03-05] MEDS: FERROUS SULFATE 325 MG TAB PO SCH (07:32)
[2022-03-05] MEDS: POTASSIUM CHLORIDE 10 MEQ TABCR PO SCH ×2 (07:32→19:53)
[2022-03-05] MEDS: BACLOFEN 10 MG TAB PO SCH ×2 (07:32→19:52)
[2022-03-05] MEDS: CHOLECALCIFEROL 1,000 UNITS 25 MCG TAB PO SCH (07:32)
[2022-03-05] MEDS: ASPIRIN 81 MG ECTAB PO SCH (07:32)
[2022-03-05] MEDS: ENOXAPARIN INJ 40 MG/0.4 ML SYR SQ SCH ×2 (07:33→19:51)
[2022-03-05 08:25] LABS: Hematocrit (blood only) 32.8 % (34.1-44.9); Hemoglobin 10.7 g/dl (12.0-16.0); Mean Corpuscular Hemoglobin 28.5 pg (25.0-34.0); Mean Corpuscular Hgb Conc 32.6 g/dL (32.0-36.0); Mean Corpuscular Volume 87.2 fL (80.0-100.0); Mean Platelet Volume 12.9 fL (9.4-12.3); Platelet Count 119 K/uL (130-400); Red Blood Count 3.76 M/uL (3.93-5.22); White Blood Count 7.47 K/ul (4.8-10.8)
[2022-03-05] MEDS: INSULIN ASPART PER UNIT SC SCH ×4 (08:44→21:02)
[2022-03-05] MEDS ORDERED: FUROSEMIDE 20 MG TAB PO SCH (09:00)
[2022-03-05 09:03] LABS: BUN Creatinine Ratio 16.8 (10-20); Creatinine Clr Calc Pharmacy 56.2 ml/min; Est GFR (African American) 60.5 ml/min; Est GFR (Non-African American) 52.2 ml/min; Potassium 3.9 mmol/L (3.5-5.1)
[2022-03-05 09:07] LABS: A calco-baum cmplx NotReported Not Detected (NotDetected); Bact fragilis Not Reported Not Detected (NotDetected); C auris Not Reported Not Detected (NotDetected); CTX-M Resistant Gene Not Detected (NotDetected); Calbicans Not Reported Not Detected (NotDetected); Candida glabrata Not Reported Not Detected (NotDetected); Candida krusei Not Reported Not Detected (NotDetected); Cneoformans/gatti Not Reported Not Detected (NotDetected); Cparapsilosis Not Reported Not Detected (NotDetected); Ctropicalis Not Reported Not Detected (NotDetected); E cloacae compx Not Reported Not Detected (NotDetected); Efaecalis Not Reported Not Detected (NotDetected); Efaecium Not Reported Not Detected (NotDetected); Enterobacterales DETECTED (NotDetected); Enterobacterales Not Reported DETECTED (NotDetected); Escherichia coli Not Reported DETECTED (NotDetected); H influenzae Not Reported Not Detected (NotDetected); IMP Resistant Gene Not Detected (NotDetected); K aerogenes Not Reported Not Detected (NotDetected); KPC Resistant Gene Not Detected (NotDetected); Koxytoca Not Reported Not Detected (NotDetected); Kpneumoniae grp Not Reported Not Detected (NotDetected); Lmonocyt Not Reported Not Detected (NotDetected); N meningitidis Not Reported Not Detected (NotDetected); NDM Resistant Gene Not Detected (NotDetected); OXA 48 Like Resistant Gene Not Detected (NotDetected); P aeruginosa Not Reported Not Detected (NotDetected); Proteus spp Not Reported Not Detected (NotDetected); Salmonella spp Not Reported Not Detected (NotDetected); Smarcescens Not Reported Not Detected (NotDetected); Staph lugdunensis Not Reported Not Detected (NotDetected); Staph spp. Not Reported Not Detected (NotDetected); Staphaureus Not Reported Not Detected (NotDetected); Staphepi Not Reported Not Detected (NotDetected); Stenmaltophilia Not Reported Not Detected (NotDetected); Strep agal(GrpB) Not Reported Not Detected (NotDetected); Strep pneum Not Reported Not Detected (NotDetected); Strep pyog (GrpA) Not Reported Not Detected (NotDetected); Strep spp Not Reported Not Detected (NotDetected); VIM Resistant Gene Not Detected (NotDetected); mcr-1 Colistin Resistant Gene Not Detected (NotDetected)
[2022-03-05 09:24] LABS: Estimated Average Glucose 128 mg/dl; Hemoglobin A1C 6.1 % (4.5-5.6)
[2022-03-05] MEDS: oxyCODONE/ACETAMINOPHEN 10-325 TAB PO PRN (10:07)
--- NOTE | 2022-03-05 16:47 | Hospitalist Progress Note ---
Date of Service March 05, 2022 Assessment & Plan (1) Pyelonephritis of left kidney: Plan: - presented with generalized weaknes, n/v - leukocytosis and tachycardia on admission meeting sepsis criteria - CT AP showed left sided pyelonephrisis and UA grossly positive for infection - started on IVF, ceftriaxone in ED - blood cultures sent - growing enteobacter and e coli - ceftriaxone changed to cefepime due to increased resistence of enterobacter to 3rd generation cephalosporins - monitor vitals and fever curve - trend WBC (2) COPD (chronic obstructive pulmonary disease): Plan: - wheezing on admission but not in respiratory distress - reports using O2 NC 2L at home at night but is homeless and living in motel right now without oxygen - restarted on inhalers - O2 NC 2L as needed (3) DMII (diabetes mellitus, type 2): Plan: - SSI while inpatient - FSG AC+HS - diabetic diet (4) HTN (hypertension): Plan: - continue home meds (5) HLD (hyperlipidemia): Plan: - continue home meds (6) Depression: Plan: - continue home meds (7) RLS (restless legs syndrome): Plan: - continue home meds Plan Jarett Diaz MD [facility] Medicine Admission and Anticipated Discharge Date Admission Date: March 04, 2022 Subjective The patient was admitted generalized weakness, n/v, found to have complicated UTI/pyelonephritis complicated by sepsis. UA was largely positive, started on ceftriaxone in the ED. blood cultures resulted positive for Enterobacterae and E coli. Antibiotics were changed to cefepime due to possibility of resistance of Enterobacter to 3rd generation cephalosporins. She feels better this morning but still not feeling great. Has pain in left knee and weakness on left side that has been present for the past year without change. Otherwise, she denies other complaints of abdominal pain, n/v/d, chest pain, shortness of breath, cough, dysuria. Review of Systems Review of Systems: All systems reviewed & are unremarkable except as noted in Subjective Physical Exam Physical Exam: General:.obese pt, NAD, well developed HEENT:. Normocephalic and atraumatic, Normal Conjunctiva, EOMI, Sclera is non- icteric Lungs:.good air entry b/l with intermittently diffuse expiratory wheezes Heart:. Normal S1, S2, no murmur Abdominal:.obese abd, Soft, NT. +CVA tenderness on left MSK:.b/l LE pitting edema Psych:. AAOx3, normal affect Results & Data Results & Data ([facility]) Vital Signs (Past 12 Hours) Vital Signs Temp Pulse Resp BP Pulse Ox O2 Del Method O2 Flow Rate 03/05/22 15:00 37.0 C 104 H 18 112/70 96 Nasal Cannula 2 03/05/22 14:36 102 H 17 93 Nasal Cannula 2 03/05/22 10:53 105 H 18 91 Nasal Cannula 2 03/05/22 08:00 Nasal Cannula 2 03/05/22 07:16 103 H 20 92 Nasal Cannula 2 03/05/22 07:12 37.4 C 107 H 20 113/51 L 92 Nasal Cannula 2 03/05/22 06:10 38 C H Laboratory Results Short CBC 03/05/22 Range/Units 07:42 WBC 7.47 (4.8-10.8) K/ul Hgb 10.7 L (12.0-16.0) g/dl Hct 32.8 L (34.1-44.9) % Plt Count 119 L (130-400) K/uL BMP 03/05/22 07:42 Sodium 138 Potassium 3.9 Chloride 106 Carbon Dioxide 27 BUN 18 Creatinine 1.07 Glucose 138 H Calcium 8.0 L Urine 03/04/22 Range/Units 17:50 Urine Color Yellow Urine Appearance Cloudy A (Clear) Urine pH 5.5 (4.5-7.5) Ur Specific [place] > 1.045 H (1.000-1.030) Urine Protein 1+ H (Negative) Urine Glucose (UA) Negative (Negative) Diagnostic Findings Impressions Abdomen/Pelvis CT 03/04/22 15:[address] WITH IV CONTRAST CT DOSE: HISTORY: Nausea. Vomiting. Confusion. Generalized abdominal pain. TECHNIQUE: Multiaxial CT images of the abdomen and pelvis were performed following the use of intravenous contrast. A dose lowering technique was utilized adhering to the principles of ALARA. COMPARISON STUDY: Abdomen and pelvis CT 11/01/2016. FINDINGS: Mild dependent changes seen at the lung bases. There is a punctate calcified granuloma within the left lower lobe. No pneumoperitoneum. No pneumatosis. Moderate to severe degenerative disc disease within the lower lumbar spine. 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 The liver, gallbladder, pancreas, and adrenal glands unremarkable. There are a few hypodense lesions within the spleen measuring up to 1.8 cm which remain stable. Normal right kidney. Mild urothelial thickening within the left renal collecting system and left ureter. There are 2 nonobstructing stones within the left kidney with the largest within the left renal pelvis measuring 7 mm. No left-sided hydronephrosis. However, there is mild asymmetric perinephric edema and mild hypoperfusion within the left kidney comparison to the right. Therefore, these findings favor a left-sided pyelonep hritis/pyelitis. A 9 mm hypodense lesion within the lower pole the left kidney. This is technically too small to characterize but statistically represents a cyst. The main portal vein is patent. Advanced calcified plaque within the takeoff of the left renal artery and superior mesenteric artery. Normal caliber abdominal aorta with moderate calcified plaque. No retroperitoneal or mesenteric lymphadenopathy. The bladder, uterus, bilateral adnexa are unremarkable. No pelvic free fluid. No bowel wall thickening or obstruction. Colonic diverticulosis. No evidence for acute diverticulitis. Normal appendix. IMPRESSION: 1. Mild asymmetric perinephric edema with hypoperfusion of the left kidney. There is also mild urothelial thickening within the left renal collecting system and left ureter. This most likely represents a left-sided pyelonephritis/pyelitis. Recommend correlation with urinalysis. 2. Left-sided nephrolithiasis. No hydronephrosis. 3. No bowel wall thickening or obstruction. 4. Normal appendix. 5. Colonic diverticulosis. No evidence for acute diverticulitis. 6. Additional findings as described above. ACT 112: Negative or not required by law. Electronically signed by: Wero Moore M.D. 03/04/2022 5:28 PM Chest X-Ray 03/04/22 15:47 XR chest 1V portable CLINICAL HISTORY: n/v, cough TECHNIQUE: Single frontal radiograph of the chest was obtained. Comparison: None available at the time of this dictation. FINDINGS: Exam is limited by underpenetration. Cardiomegaly is noted. Prominence and cephalization of the vasculature is seen. No evidence of pleural effusion or pneumothorax. IMPRESSION: No acute chest disease. ACT 112: Negative or not required by law. Electronically signed by: El Romeo M.D. 03/04/2022 5:[address] 03/04/22 15:[address] DOSE: 2751.79 mGy.cm HISTORY: confusion, dizziness TECHNIQUE: Multiaxial CT images of the head were performed without the use of intravenous contrast. Automated exposure control was utilized for this study. A dose lowering technique was utilized adhering to the principles of ALARA. Comparison: Head CT 07/06/2021. Findings: The paranasal sinuses and mastoid air cells are clear. The calvarium and skull base are intact. There is no mass, hematoma, midline shift, acute infarct. White matter hypodensity is nonspecific but suggestive of microvascular ischemic change. The ventricles and sulci demonstrate mild age-related involutional changes. Impression: No significant change compared to the prior study. No acute intracranial abnormality. ACT 112: Negative or not required by law. Electronically signed by: Wero Moore M.D. 03/04/2022 5:14 PM Shoulder X-Ray 03/04/22 15:50 XR shoulder LT min 2V routine CLINICAL HISTORY: Fall with left shoulder pain. COMPARISON STUDY: The left shoulder 06/01/2015. FINDINGS: The bones are osteopenic. No acute fracture or dislocation within the left shoulder. The left clavicle is intact. [id number] osteoarthritis within the left shoulder. Soft tissues are unremarkable. IMPRESSION: No fracture or dislocation within the left shoulder. ACT 112: Negative or not required by law. Electronically signed by: Wero Moore M.D. 03/04/2022 5:02 PM Medications Administered Current Inpatient Medications Acetaminophen (Acetaminophen 325 Mg Tab) 650 mg PO Q4H PRN PRN Reason: pain/fever Stop: 04/03/22 20:12 Last Admin: 03/05/22 06:14 Dose: 650 mg Albuterol (Albut/Ipratrop 3mg/0.5mg Neb 3 Ml Vial) 3 ml NEB Q4R [facility]; Protocol Stop: 04/03/22 20:12 Last Admin: 03/05/22 14:36 Dose: 3 ml Amitriptyline HCl (Amitriptyline Hcl 10 Mg Tab) 10 mg PO HS [facility] Stop: 04/03/22 20:59 Last Admin: 03/04/22 21:25 Dose: 10 mg Aspirin (Aspirin 81 Mg Ectab) 81 mg PO QAM [facility] Stop: 04/04/22 08:59 Last Admin: 03/05/22 07:32 Dose: 81 mg Atorvastatin Calcium (Atorvastatin 40 Mg Tab) 40 mg PO [facility] Stop: 04/04/22 08:59 Last Admin: 03/05/22 07:32 Dose: 40 mg Baclofen (Baclofen 10 Mg Tab) 10 mg PO BID [facility] Stop: 04/03/22 20:59 Last Admin: 03/05/22 07:32 Dose: 10 mg Bupropion HCl (Bupropion Xl 150 Mg Tabcr) 150 mg PO [facility] Stop: 04/04/22 08:59 Last Admin: 03/05/22 07:32 Dose: 150 mg Dextrose (Dextrose 50% 50 Ml Syringe) 25 - 50 ml IV UD PRN; Protocol PRN Reason: Hypoglycemia Protocol Stop: 04/03/22 20:12 Docusate Sodium (Docusate Sodium 100 Mg Cap) 100 mg PO BID PRN PRN Reason: Constipation Stop: 04/03/22 19:39 Enoxaparin Sodium (Enoxaparin Inj 40 Mg/0.4 Ml Syr) 40 mg SQ Q12H [facility] Stop: 04/03/22 20:59 Last Admin: 03/05/22 07:33 Dose: 40 mg Ferrous Sulfate (Ferrous Sulfate 325 Mg Tab) 325 mg PO [facility] Stop: 04/04/22 08:59 Last Admin: 03/05/22 07:32 Dose: 325 mg Fluticasone/Vilanterol (Fluticasone/Vilanterol 200/25mcg 14 Puffs/Inhaler) 1 puffs INH PM [facility]; Protocol Stop: 04/03/22 20:59 Last Admin: 03/04/22 21:25 Dose: 1 puffs Furosemide (Furosemide 20 Mg Tab) 20 mg PO [facility] Stop: 04/04/22 08:59 Last Admin: 03/05/22 07:32 Dose: 20 mg Glucagon (Glucagon For Inj 1 Mg Vial) 1 mg SQ UD PRN; Protocol PRN Reason: Hypoglycemia Protocol Stop: 04/03/22 20:12 Glucose (Glucose 40% Gel 15 Gm Tube) 15 - 30 gm PO UD PRN; Protocol PRN Reason: Hypoglycemia Protocol Stop: 04/03/22 20:12 Glucose (Glucose 10 Tab/Tube) 4 - 8 tab PO UD PRN; Protocol PRN Reason: Hypoglycemia Treatment Stop: 04/03/22 20:12 Cefepime HCl 2,000 mg/ Syringe 20 mls @ 5 mls/min IV Q12H [facility]; Protocol Stop: 03/15/22 16:44 Insulin Aspart (Insulin Aspart Per Unit) 0 units SC ACHS [facility] Stop: 04/03/22 20:59 Last Admin: 03/05/22 12:40 Dose: 8 units Miscellaneous (Carbohydrates For Hypoglycemia ) 15 - 30 gm PO UD PRN PRN Reason: Hypoglycemia Protocol Stop: 04/03/22 20:12 Montelukast Sodium (Montelukast Sodium 10 Mg Tablet) 10 mg PO PM [facility] Stop: 04/03/22 20:59 Last Admin: 03/04/22 21:24 Dose: 10 mg Ondansetron HCl (Ondansetron Inj 2 Mg/Ml 2 Ml Vial) 4 mg IV Q6H PRN PRN Reason: Nausea Stop: 04/03/22 20:12 Oxycodone/Acetaminophen (Oxycodone/Acetaminophen 10-325 Tab) 1 tab PO Q6H PRN PRN Reason: severe pain (7-10) Stop: 03/18/22 19:32 Last Admin: 03/05/22 10:07 Dose: 1 tab Pantoprazole Sodium (Pantoprazole 40 Mg Tab) 40 mg PO BID [facility] Stop: 04/03/22 20:59 Last Admin: 03/05/22 07:31 Dose: 40 mg Polyethylene Glycol (Polyethylene (Miralax) 17 Gm Pack) 17 gm PO DAILY PRN PRN Reason: Constipation Stop: 04/03/22 20:12 Potassium Chloride (Potassium Chloride 10 Meq Tabcr) 10 meq PO BID [facility] Stop: 04/03/22 20:59 Last Admin: 03/05/22 07:32 Dose: 10 meq Ropinirole HCl (Ropinirole Hcl 1 Mg Tablet) 1 mg PO HS [facility] Stop: 04/03/22 20:59 Last Admin: 03/04/22 21:24 Dose: 1 mg Vitamin D (Cholecalciferol 1,000 Units 25 Mcg Tab) 2,000 units PO QAM [facility] Stop: 04/04/22 08:59 Last Admin: 03/05/22 07:32 Dose: 2,000 units
[2022-03-05] MEDS: LACTATED RINGER'S 1,000 ML IV SCH (17:14)
[2022-03-05] MEDS: CEFEPIME 2,000 MG in SYRINGE 0 ML IV SCH (17:16)
[2022-03-05] MEDS ORDERED: cefTRIAXone SODIUM 2,000 MG in DEXTROSE 5% 50 ML IV SCH (19:00)
[2022-03-05] MEDS: MONTELUKAST SODIUM 10 MG TABLET PO SCH (19:53)
[2022-03-05] MEDS: rOPINIRole HCL 1 MG TABLET PO SCH (19:53)
[2022-03-05] MEDS: AMITRIPTYLINE HCL 10 MG TAB PO SCH (19:53)
[2022-03-05] MEDS: FLUTICASONE/VILANTEROL 200/25MCG 14 PUFFS/INHALER INH SCH (20:00)
[2022-03-06] MEDS: ALBUT/IPRATROP 3MG/0.5MG NEB 3 ML VIAL NEB SCH ×6 (02:05→23:47)
[2022-03-06] MEDS: CEFEPIME 2,000 MG in SYRINGE 0 ML IV SCH ×2 (05:10→18:26)
[2022-03-06] MEDS: LACTATED RINGER'S 1,000 ML IV SCH (05:10)
[2022-03-06] MEDS ORDERED: LACTATED RINGER'S 1,000 ML IV SCH (07:45)
[2022-03-06] MEDS: BACLOFEN 10 MG TAB PO SCH ×2 (07:46→20:01)
[2022-03-06] MEDS: POTASSIUM CHLORIDE 10 MEQ TABCR PO SCH ×2 (07:46→20:02)
[2022-03-06] MEDS: buPROPion XL 150 MG TABCR PO SCH (07:47)
[2022-03-06] MEDS: CHOLECALCIFEROL 1,000 UNITS 25 MCG TAB PO SCH (07:47)
[2022-03-06] MEDS: PANTOprazole 40 MG TAB PO SCH ×2 (07:47→20:01)
[2022-03-06] MEDS: ATORVASTATIN 40 MG TAB PO SCH (07:48)
[2022-03-06] MEDS: FERROUS SULFATE 325 MG TAB PO SCH (07:48)
[2022-03-06] MEDS: ASPIRIN 81 MG ECTAB PO SCH (07:48)
[2022-03-06] MEDS: ENOXAPARIN INJ 40 MG/0.4 ML SYR SQ SCH ×2 (07:49→20:03)
[2022-03-06] MEDS: INSULIN ASPART PER UNIT SC SCH ×4 (09:34→22:31)
--- NOTE | 2022-03-06 16:42 | Hospitalist Progress Note ---
Date of Service March 06, 2022 Assessment & Plan (1) Pyelonephritis of left kidney: Plan: - presented with generalized weaknes, n/v - leukocytosis and tachycardia on admission meeting sepsis criteria - CT AP showed left sided pyelonephrisis and UA grossly positive for infection - started on IVF, ceftriaxone in ED - blood cultures sent - growing enteobacter and e coli - continue cefepime pending susceptibilities - will likely need bout 5 days of IV abx due to bacteremia then can transition to PO with acceptable susceptiblities - monitor vitals and fever curve - trend WBC (2) Bacteremia: Plan: - growing GNR, same as urine - likely source is - continue cefepime as above - likely will need about 5 days of IV abx at least then can transition to PO pending susceptibilities (3) COPD (chronic obstructive pulmonary disease): Plan: - wheezing on admission but not in respiratory distress - reports using O2 NC 2L at home at night but is homeless and living in motel right now without oxygen - restarted on inhalers - O2 NC 2L as needed - tolerating RA well today (4) DMII (diabetes mellitus, type 2): Plan: - SSI while inpatient - FSG AC+HS - diabetic diet (5) HTN (hypertension): Plan: - continue home meds (6) HLD (hyperlipidemia): Plan: - continue home meds (7) Depression: Plan: - continue home meds (8) RLS (restless legs syndrome): Plan: - continue home meds Plan Jarett Diaz MD [facility] Medicine Admission and Anticipated Discharge Date Admission Date: March 05, 2022 Subjective The patient was admitted generalized weakness, n/v, found to have complicated UTI/pyelonephritis complicated by sepsis. UA was largely positive, started on ceftriaxone in the ED. blood cultures resulted positive for Enterobacterae and E coli. Antibiotics were changed to cefepime due to possibility of resistance of Enterobacter to 3rd generation cephalosporins. She continued to improve on IV antibiotics. Was walking to the restroom on her own, eating well. She feels b much better today. She denies other complaints of abdominal pain, n/v/d, chest pain, shortness of breath, cough, dysuria. Review of Systems Review of Systems: All systems reviewed & are unremarkable except as noted in Subjective At least 10 Review of systems were reviewed and all negative except as indicated in HPI Physical Exam Physical Exam: General:.obese pt, NAD, well developed HEENT:. Normocephalic and atraumatic, Normal Conjunctiva, EOMI, Sclera is non- icteric Lungs:.good air entry b/l , no CTAB Heart:. Normal S1, S2, no murmur Abdominal:.obese abd, Soft, NT. -CVA tenderness on left MSK:.b/l LE pitting edema Psych:. AAOx3, normal affect Results & Data Results & Data ([facility]) Vital Signs (Past 12 Hours) Vital Signs Temp Pulse Resp BP Pulse Ox O2 Del Method 03/06/22 15:49 36.7 C 112 H 18 125/77 91 Room Air 03/06/22 15:24 121 H 16 94 Room Air 03/06/22 11:10 104 H 18 92 Room Air 03/06/22 08:35 36.8 C 108 H 18 117/64 94 Room Air 03/06/22 07:45 Room Air 03/06/22 07:23 107 H 18 90 Room Air Medications Administered Current Inpatient Medications Acetaminophen (Acetaminophen 325 Mg Tab) 650 mg PO Q4H PRN PRN Reason: pain/fever Stop: 04/03/22 20:12 Last Admin: 03/05/22 06:14 Dose: 650 mg Albuterol (Albut/Ipratrop 3mg/0.5mg Neb 3 Ml Vial) 3 ml NEB Q4R [facility]; Protocol Stop: 04/03/22 20:12 Last Admin: 03/06/22 15:23 Dose: 3 ml Amitriptyline HCl (Amitriptyline Hcl 10 Mg Tab) 10 mg PO HS REPLACED BY [facility] Stop: 04/03/22 20:59 Last Admin: 03/05/22 19:53 Dose: 10 mg Aspirin (Aspirin 81 Mg Ectab) 81 mg PO QAM REPLACED BY [facility] Stop: 04/04/22 08:59 Last Admin: 03/06/22 07:48 Dose: 81 mg Atorvastatin Calcium (Atorvastatin 40 Mg Tab) 40 mg PO QAM REPLACED BY [facility] Stop: 04/04/22 08:59 Last Admin: 03/06/22 07:48 Dose: 40 mg Baclofen (Baclofen 10 Mg Tab) 10 mg PO BID REPLACED BY [facility] Stop: 04/03/22 20:59 Last Admin: 03/06/22 07:46 Dose: 10 mg Bupropion HCl ([facility]ropion Xl 150 Mg Tabcr) [facility] Stop: 04/04/22 08:59 Last Admin: 03/06/22 07:47 Dose: 150 mg Dextrose (Dextrose 50% 50 Ml Syringe) 25 - 50 ml IV UD PRN; Protocol PRN Reason: Hypoglycemia Protocol Stop: 04/03/22 20:12 Docusate Sodium (Docusate Sodium 100 Mg Cap) 100 mg PO BID PRN PRN Reason: Constipation Stop: 04/03/22 19:39 Enoxaparin Sodium (Enoxaparin Inj 40 Mg/0.4 Ml Syr) 40 mg SQ Q12H REPLACED BY [facility] Stop: 04/03/22 20:59 Last Admin: 03/06/22 07:49 Dose: 40 mg Ferrous Sulfate (Ferrous Sulfate 325 Mg Tab) 325 mg PO [facility] Stop: 04/04/22 08:59 Last Admin: 03/06/22 07:48 Dose: 325 mg Fluticasone/Vilanterol (Fluticasone/Vilanterol 200/25mcg 14 Puffs/Inhaler) 1 puffs INH PM REPLACED BY [facility]; Protocol Stop: 04/03/22 20:59 Last Admin: 03/05/22 20:00 Dose: 1 puffs Furosemide (Furosemide 20 Mg Tab) 20 mg PO [facility] Stop: 04/04/22 08:59 Last Admin: 03/05/22 07:32 Dose: 20 mg Glucagon (Glucagon For Inj 1 Mg Vial) 1 mg SQ UD PRN; Protocol PRN Reason: Hypoglycemia Protocol Stop: 04/03/22 20:12 Glucose (Glucose 40% Gel 15 Gm Tube) 15 - 30 gm PO UD PRN; Protocol PRN Reason: Hypoglycemia Protocol Stop: 04/03/22 20:12 Glucose (Glucose 10 Tab/Tube) 4 - 8 tab PO UD PRN; Protocol PRN Reason: Hypoglycemia Treatment Stop: 04/03/22 20:12 Cefepime HCl 2,000 mg/ Syringe 20 mls @ 5 mls/min IV Q12H REPLACED BY [facility]; Protocol Stop: 03/15/22 16:44 Last Admin: 03/06/22 05:10 Dose: 5 mls/min Lactated Ringer's (Lr) 1,000 mls @ 80 mls/hr IV .[id number] REPLACED BY [facility] Stop: 03/06/22 19:44 Last Admin: 03/06/22 16:07 Dose: Not Given Insulin Aspart (Insulin Aspart Per Unit) 0 units SC ACHS REPLACED BY [facility] Stop: 04/03/22 20:59 Last Admin: 03/06/22 13:18 Dose: 4 units Miscellaneous (Carbohydrates For Hypoglycemia ) 15 - 30 gm PO UD PRN PRN Reason: Hypoglycemia Protocol Stop: 04/03/22 20:12 Montelukast Sodium (Montelukast Sodium 10 Mg Tablet) 10 mg PO PM [facility] Stop: 04/03/22 20:59 Last Admin: 03/05/22 19:53 Dose: 10 mg Ondansetron HCl (Ondansetron Inj 2 Mg/Ml 2 Ml Vial) 4 mg IV Q6H PRN PRN Reason: Nausea Stop: 04/03/22 20:12 Oxycodone/Acetaminophen (Oxycodone/Acetaminophen 10-325 Tab) 1 tab PO Q6H PRN PRN Reason: severe pain (7-10) Stop: 03/18/22 19:32 Last Admin: 03/05/22 10:07 Dose: 1 tab Pantoprazole Sodium (Pantoprazole 40 Mg Tab) 40 mg PO BID REPLACED BY [facility] Stop: 04/03/22 20:59 Last Admin: 03/06/22 07:47 Dose: 40 mg Polyethylene Glycol (Polyethylene (Miralax) 17 Gm Pack) 17 gm PO DAILY PRN PRN Reason: Constipation Stop: 04/03/22 20:12 Potassium Chloride (Potassium Chloride 10 Meq Tabcr) 10 meq PO BID [facility] Stop: 04/03/22 20:59 Last Admin: 03/06/22 07:46 Dose: 10 meq Ropinirole HCl (Ropinirole Hcl 1 Mg Tablet) 1 mg PO HS REPLACED BY [facility] Stop: 04/03/22 20:59 Last Admin: 03/05/22 19:53 Dose: 1 mg Vitamin D (Cholecalciferol 1,000 Units 25 Mcg Tab) 2,000 units PO QAM REPLACED BY [facility] Stop: 04/04/22 08:59 Last Admin: 03/06/22 07:47 Dose: 2,000 units
[2022-03-06] MEDS: MONTELUKAST SODIUM 10 MG TABLET PO SCH (20:01)
[2022-03-06] MEDS: AMITRIPTYLINE HCL 10 MG TAB PO SCH (20:02)
[2022-03-06] MEDS: rOPINIRole HCL 1 MG TABLET PO SCH (20:02)
[2022-03-06] MEDS: FLUTICASONE/VILANTEROL 200/25MCG 14 PUFFS/INHALER INH SCH (20:03)
[2022-03-07] MEDS: ALBUT/IPRATROP 3MG/0.5MG NEB 3 ML VIAL NEB SCH ×3 (03:33→11:06)
[2022-03-07] MEDS: CEFEPIME 2,000 MG in SYRINGE 0 ML IV SCH (05:14)
[2022-03-07 07:58] LABS: Basophils # (auto) 0.01 K/uL (0-0.2); Basophils % (auto) 0.2 %; Eosinophils # (auto) 0.08 K/uL (0-0.50); Eosinophils % (auto) 1.7 %; Hematocrit (blood only) 31.9 % (34.1-44.9); Hemoglobin 10.3 g/dl (12.0-16.0); Immature Granulocytes # (auto) 0.01 K/uL (0.00-0.02); Immature Granulocytes % (auto) 0.2 %; Lymphocytes # (auto) 0.86 K/uL (1.2-3.4); Lymphocytes % (auto) 18.2 %; Mean Corpuscular Hgb Conc 32.3 g/dL (32.0-36.0); Mean Corpuscular Volume 86.7 fL (80.0-100.0); Mean Platelet Volume 12.5 fL (9.4-12.3); Monocytes # (auto) 0.65 K/uL (0.24-0.82); Monocytes % (auto) 13.7 %; Neutrophils # (auto) 3.12 K/uL (1.4-6.5); Platelet Count 134 K/uL (130-400); RDW Coefficient of Variation 14.6 % (11.5-14.5); RDW Standard Deviation 46.6 fL (36.4-46.3); Red Blood Count 3.68 M/uL (3.93-5.22); White Blood Count 4.73 K/ul (4.8-10.8)
[2022-03-07 08:18] LABS: Albumin Globulin Ratio 1.1 (0.9-2); Albumin Level 3.1 gm/dl (3.4-5.0); BUN Creatinine Ratio 19.1 (10-20); Bilirubin,Total 0.5 mg/dl (0.2-1.0); Calcium 8.3 mg/dl (8.5-10.1); Est GFR (African American) 70.7 ml/min; Globulin 2.7 gm/dl (2.5-4.0); Magnesium 1.7 mg/dl (1.7-2.4); Phosphorus 2.8 mg/dl (2.5-4.9); Potassium 3.9 mmol/L (3.5-5.1); Total Protein 5.8 gm/dl (6.0-8.3)
[2022-03-07 08:24] LABS: Prothrombin Time 10.9 Seconds (9.0-12.0)
[2022-03-07] MEDS: FERROUS SULFATE 325 MG TAB PO SCH (08:57)
[2022-03-07] MEDS: BACLOFEN 10 MG TAB PO SCH ×2 (08:57→20:09)
[2022-03-07] MEDS: POTASSIUM CHLORIDE 10 MEQ TABCR PO SCH ×2 (08:57→20:10)
[2022-03-07] MEDS: ATORVASTATIN 40 MG TAB PO SCH (08:57)
[2022-03-07] MEDS: CHOLECALCIFEROL 1,000 UNITS 25 MCG TAB PO SCH (08:57)
[2022-03-07] MEDS: ENOXAPARIN INJ 40 MG/0.4 ML SYR SQ SCH ×2 (08:57→20:08)
[2022-03-07] MEDS: ASPIRIN 81 MG ECTAB PO SCH (08:57)
[2022-03-07] MEDS: PANTOprazole 40 MG TAB PO SCH ×2 (08:57→20:09)
[2022-03-07] MEDS: buPROPion XL 150 MG TABCR PO SCH (08:57)
[2022-03-07] MEDS: INSULIN ASPART PER UNIT SC SCH ×4 (09:01→20:29)
[2022-03-07] MEDS ORDERED: CIPROFLOXACIN / D5W 400 MG/200 ML BAG IV SCH (10:00)
[2022-03-07] MEDS ORDERED: ALBUT/IPRATROP 3MG/0.5MG NEB 3 ML VIAL NEB PRN (11:34)
--- NOTE | 2022-03-07 11:38 | Hospitalist Progress Note ---
Date of Service March 07, 2022 Assessment & Plan (1) Pyelonephritis of left kidney: Plan: - presented with generalized weaknes, n/v - leukocytosis and tachycardia on admission meeting sepsis criteria - CT AP showed left sided pyelonephrisis and UA grossly positive for infection - started on IVF, ceftriaxone in ED - continue on ceftriaxone with mancini sensitive E coli on ID/susceptibilities - trialed ciprofloxacin but patient had very mild allergic reaction at infusion site - swtiched back to ceftriaxone - will likely need bout 5 days of IV abx due to bacteremia then can transition to PO with acceptable susceptiblities - monitor vitals and fever curve - trend WBC (2) Bacteremia: Plan: - growing GNR, same as urine - likely source is - continue ceftriaxone as above - likely will need about 5 days of IV abx at least then can transition to PO pending susceptibilities (3) COPD (chronic obstructive pulmonary disease): Plan: - wheezing on admission but not in respiratory distress - reports using O2 NC 2L at home at night but is homeless and living in motel right now without oxygen - restarted on inhalers - O2 NC 2L as needed - tolerating RA well today (4) DMII (diabetes mellitus, type 2): Plan: - SSI while inpatient - FSG AC+HS - diabetic diet (5) HTN (hypertension): Plan: - continue home meds (6) HLD (hyperlipidemia): Plan: - continue home meds (7) Depression: Plan: - continue home meds (8) RLS (restless legs syndrome): Plan: - continue home meds Plan Jarett Diaz MD [facility] Medicine Admission and Anticipated Discharge Date Admission Date: March 05, 2022 Subjective The patient was admitted generalized weakness, n/v, found to have complicated UTI/pyelonephritis complicated by sepsis. UA was largely positive, started on ceftriaxone in the ED. blood cultures resulted positive for Enterobacterae and E coli. Antibiotics were changed to cefepime due to possibility of resistance of Enterobacter to 3rd generation cephalosporins. She continued to improve on IV antibiotics. Was walking to the restroom on her own, eating well. She continues to feel well today. She denies other complaints of abdominal pain, n/v/d, chest pain, shortness of breath, cough, dysuria. Review of Systems Review of Systems: All systems reviewed & are unremarkable except as noted in Subjective At least 10 Review of systems were reviewed and all negative except as indicated in HPI Physical Exam Physical Exam: General:.obese pt, NAD, well developed HEENT:. Normocephalic and atraumatic, Normal Conjunctiva, EOMI, Sclera is non- icteric Lungs:.good air entry b/l , no CTAB Heart:. Normal S1, S2, no murmur Abdominal:.obese abd, Soft, NT. -CVA tenderness on left MSK:. no LE edema Psych:. AAOx3, normal affect Results & Data Results & Data ([facility]) Vital Signs (Past 12 Hours) Vital Signs Temp Pulse Resp BP Pulse Ox O2 Del Method O2 Flow Rate 03/07/22 09:00 Room Air, Nasal Cannula 2 03/07/22 11:07 104 H 18 96 Room Air 03/07/22 07:35 36.7 C 103 H 18 109/64 96 Room Air 03/07/22 07:06 104 H 18 92 Room Air 03/07/22 03:33 103 H 20 96 Nasal Cannula 2 03/06/22 23:47 110 H 18 93 Room Air Laboratory Results Short CBC 03/07/22 Range/Units 07:31 WBC 4.73 L (4.8-10.8) K/ul Hgb 10.3 L (12.0-16.0) g/dl Hct 31.9 L (34.1-44.9) % Plt Count 134 (130-400) K/uL BMP 03/07/22 07:31 Sodium 139 Potassium 3.9 Chloride 108 H Carbon Dioxide 27 BUN 18 Creatinine 0.94 Glucose 114 H Calcium 8.3 L Liver Function 03/07/22 Range/Units 07:31 Total Bilirubin 0.5 (0.2-1.0) mg/dl AST 18 (13-39) U/L ALT 19 (7-52) U/L Alkaline Phosphatase 79 (34-104) U/L Albumin 3.1 L (3.4-5.0) gm/dl Medications Administered Current Inpatient Medications Acetaminophen (Acetaminophen 325 Mg Tab) 650 mg PO Q4H PRN PRN Reason: pain/fever Stop: 04/03/22 20:12 Last Admin: 03/05/22 06:14 Dose: 650 mg Albuterol (Albut/Ipratrop 3mg/0.5mg Neb 3 Ml Vial) 3 ml NEB Q4R PRN; Protocol PRN Reason: shortness of breath Stop: 04/03/22 20:12 Amitriptyline HCl (Amitriptyline Hcl 10 Mg Tab) 10 mg PO HS [facility] Stop: 04/03/22 20:59 Last Admin: 03/06/22 20:02 Dose: 10 mg Aspirin (Aspirin 81 Mg Ectab) [facility] [place]: 04/04/22 08:59 Last Admin: 03/07/22 08:57 Dose: 81 mg Atorvastatin Calcium (Atorvastatin 40 Mg Tab) [facility] [place] Stop: 04/04/22 08:59 Last Admin: 03/07/22 08:57 Dose: 40 mg Baclofen (Baclofen 10 Mg Tab) 10 mg PO BID [facility] Stop: 04/03/22 20:59 Last Admin: 03/07/22 08:57 Dose: 10 mg Bupropion HCl (Bupropion Xl 150 Mg Tabcr) 150 mg PO [facility] Stop: 04/04/22 08:59 Last Admin: 03/07/22 08:57 Dose: 150 mg Dextrose (Dextrose 50% 50 Ml Syringe) 25 - 50 ml IV UD PRN; Protocol PRN Reason: Hypoglycemia Protocol Stop: 04/03/22 20:12 Docusate Sodium (Docusate Sodium 100 Mg Cap) 100 mg PO BID PRN PRN Reason: Constipation Stop: 04/03/22 19:39 Enoxaparin Sodium (Enoxaparin Inj 40 Mg/0.4 Ml Syr) 40 mg SQ Q12H [facility] Stop: 04/03/22 20:59 Last Admin: 03/07/22 08:57 Dose: 40 mg Ferrous Sulfate (Ferrous Sulfate 325 Mg Tab) 325 mg PO [facility] Stop: 04/04/22 08:59 Last Admin: 03/07/22 08:57 Dose: 325 mg Fluticasone/Vilanterol (Fluticasone/Vilanterol 200/25mcg 14 Puffs/Inhaler) 1 puffs INH PM [facility]; Protocol Stop: 04/03/22 20:59 Last Admin: 03/06/22 20:03 Dose: 1 puffs Furosemide (Furosemide 20 Mg Tab) [facility] [place]: 04/04/22 08:59 Last Admin: 03/05/22 07:32 Dose: 20 mg Glucagon (Glucagon For Inj 1 Mg Vial) 1 mg SQ UD PRN; Protocol PRN Reason: Hypoglycemia Protocol Stop: 04/03/22 20:12 Glucose (Glucose 40% Gel 15 Gm Tube) 15 - 30 gm PO UD PRN; Protocol PRN Reason: Hypoglycemia Protocol Stop: 04/03/22 20:12 Glucose (Glucose 10 Tab/Tube) 4 - 8 tab PO UD PRN; Protocol PRN Reason: Hypoglycemia Treatment Stop: 04/03/22 20:12 Ceftriaxone Sodium 2,000 mg/ (Dextrose) 70 mls @ 100 mls/hr IV DAILY [facility]; Protocol Stop: 03/21/22 11:29 Insulin Aspart (Insulin Aspart Per Unit) 0 units SC ACHS [facility] Stop: 04/03/22 20:59 Last Admin: 03/07/22 09:01 Dose: 9 units Miscellaneous (Carbohydrates For Hypoglycemia ) 15 - 30 gm PO UD PRN PRN Reason: Hypoglycemia Protocol Stop: 04/03/22 20:12 Montelukast Sodium (Montelukast Sodium 10 Mg Tablet) 10 mg PO PM [facility] Stop: 04/03/22 20:59 Last Admin: 03/06/22 20:01 Dose: 10 mg Ondansetron HCl (Ondansetron Inj 2 Mg/Ml 2 Ml Vial) 4 mg IV Q6H PRN PRN Reason: Nausea Stop: 04/03/22 20:12 Oxycodone/Acetaminophen (Oxycodone/Acetaminophen 10-325 Tab) 1 tab PO Q6H PRN PRN Reason: severe pain (7-10) Stop: 03/18/22 19:32 Last Admin: 03/05/22 10:07 Dose: 1 tab Pantoprazole Sodium (Pantoprazole 40 Mg Tab) 40 mg PO BID [facility] Stop: 04/03/22 20:59 Last Admin: 03/07/22 08:57 Dose: 40 mg Polyethylene Glycol (Polyethylene (Miralax) 17 Gm Pack) 17 gm PO DAILY PRN PRN Reason: Constipation Stop: 04/03/22 20:12 Potassium Chloride (Potassium Chloride 10 Meq Tabcr) 10 meq PO BID [facility] Stop: 04/03/22 20:59 Last Admin: 03/07/22 08:57 Dose: 10 meq Ropinirole HCl (Ropinirole Hcl 1 Mg Tablet) 1 mg PO HS [facility] Stop: 04/03/22 20:59 Last Admin: 03/06/22 20:02 Dose: 1 mg Vitamin D (Cholecalciferol 1,000 Units 25 Mcg Tab) 2,000 units PO [facility] Stop: 04/04/22 08:59 Last Admin: 03/07/22 08:57 Dose: 2,000 units
[2022-03-07] MEDS ORDERED: CEFEPIME 2,000 MG in SYRINGE 0 ML IV SCH (13:00)
[2022-03-07] MEDS ORDERED: cefTRIAXone SODIUM 2,000 MG in DEXTROSE 5% 50 ML IV SCH (13:00)
--- NOTE | 2022-03-07 13:56 | Electrocardiogram Report ---
Test Reason : Blood Pressure : / mmHG Vent. Rate : 115 BPM Atrial Rate : 115 BPM P-R Int : 190 ms QRS Dur : 082 ms QT Int : 314 ms P-R-T Axes : 021 047 038 degrees QTc Int : 434 ms Sinus tachycardia with frequent Premature ventricular complexes Otherwise normal ECG When compared with ECG of 04-MAR-2022 14:37, No significant change was found Confirmed by Rudi Deleon ([id number]) on 03/07/2022 1:55:58 PM Referred By: REFERRED SELF Confirmed By:Rudi Deleon
[2022-03-07] MEDS: oxyCODONE/ACETAMINOPHEN 10-325 TAB PO PRN (20:07)
[2022-03-07] MEDS: rOPINIRole HCL 1 MG TABLET PO SCH (20:08)
[2022-03-07] MEDS: FLUTICASONE/VILANTEROL 200/25MCG 14 PUFFS/INHALER INH SCH (20:09)
[2022-03-07] MEDS: AMITRIPTYLINE HCL 10 MG TAB PO SCH (20:10)
[2022-03-07] MEDS: MONTELUKAST SODIUM 10 MG TABLET PO SCH (20:10)
[2022-03-08] MEDS: ATORVASTATIN 40 MG TAB PO SCH (08:38)
[2022-03-08] MEDS: POTASSIUM CHLORIDE 10 MEQ TABCR PO SCH (08:38)
[2022-03-08] MEDS: ASPIRIN 81 MG ECTAB PO SCH (08:38)
[2022-03-08] MEDS: BACLOFEN 10 MG TAB PO SCH (08:38)
[2022-03-08] MEDS: buPROPion XL 150 MG TABCR PO SCH (08:38)
[2022-03-08] MEDS: CHOLECALCIFEROL 1,000 UNITS 25 MCG TAB PO SCH (08:38)
[2022-03-08] MEDS: PANTOprazole 40 MG TAB PO SCH (08:38)
[2022-03-08] MEDS: FERROUS SULFATE 325 MG TAB PO SCH (08:39)
[2022-03-08] MEDS: ENOXAPARIN INJ 40 MG/0.4 ML SYR SQ SCH (08:39)
[2022-03-08] MEDS: INSULIN ASPART PER UNIT SC SCH ×2 (08:43→12:50)
--- NOTE | 2022-03-08 11:59 | Hospitalist Progress Note ---
Date of Service March 08, 2022 Assessment & Plan (1) Pyelonephritis of left kidney: Plan: - presented with generalized weaknes, n/v - leukocytosis and tachycardia on admission meeting sepsis criteria - CT AP showed left sided pyelonephrisis and UA grossly positive for infection - started on IVF, ceftriaxone in ED - continue on ceftriaxone with mancini sensitive E coli on ID/susceptibilities - trialed ciprofloxacin but patient had very mild allergic reaction at infusion site - switched back to ceftriaxone - will likely need bout 5 days of IV abx due to bacteremia then can transition to PO with acceptable susceptibilities - monitor vitals and fever curve - for discharge today to complete 14 day course of abx with bactrim (2) Bacteremia: Plan: - growing GNR, same as urine - likely source is - continue ceftriaxone as above - likely will need about 5 days of IV abx at least then can transition to PO pending susceptibilities as above (3) COPD (chronic obstructive pulmonary disease): Plan: - wheezing on admission but not in respiratory distress - reports using O2 NC 2L at home at night but is homeless and [facility] right now without oxygen - restarted on inhalers - O2 NC 2L as needed - tolerating RA well today (4) DMII (diabetes mellitus, type 2): Plan: - SSI while inpatient - FSG AC+HS - diabetic diet (5) HTN (hypertension): Plan: - continue home meds (6) HLD (hyperlipidemia): Plan: - continue home meds (7) Depression: Plan: - continue home meds (8) RLS (restless legs syndrome): Plan: - continue home meds Plan Jarett Diaz MD Hospital Medicine Admission and Anticipated Discharge Date Admission Date: March 05, 2022 Subjective The patient was admitted generalized weakness, n/v, found to have complicated UTI/pyelonephritis complicated by sepsis. UA was largely positive, started on ceftriaxone in the ED. blood cultures resulted positive for pansensitive E coli. Antibiotics were continued with ceftriaxone with good response. She continued to improve on IV antibiotics. Was walking to the restroom on her own, eating well. She was discharged to complete a full 2 week course of antibiotics with bactrim for pyelonephritis and bacteremia. She continues to feel well today. She denies other complaints of abdominal pain, n/v/d, chest pain, shortness of breath, cough, dysuria. Review of Systems Review of Systems: All systems reviewed & are unremarkable except as noted in Subjective At least 10 Review of systems were reviewed and all negative except as indicated in HPI Physical Exam Physical Exam: General:.obese pt, NAD, well developed HEENT:. Normocephalic and atraumatic, Normal Conjunctiva, EOMI, Sclera is non- icteric Lungs:.good air entry b/l , no CTAB Heart:. Normal S1, S2, no murmur Abdominal:.obese abd, Soft, NT. -CVA tenderness on left MSK:. no LE edema Psych:. AAOx3, normal affect Results & Data Results & Data ([facility]) Vital Signs (Past 12 Hours) Vital Signs Temp Pulse Resp BP Pulse Ox 03/08/22 08:17 36.6 C 75 16 128/68 97 Medications Administered Current Inpatient Medications Acetaminophen (Acetaminophen 325 Mg Tab) 650 mg PO Q4H PRN PRN Reason: pain/fever Stop: 04/03/22 20:12 Last Admin: 03/05/22 06:14 Dose: 650 mg Albuterol (Albut/Ipratrop 3mg/0.5mg Neb 3 Ml Vial) 3 ml NEB Q4R PRN; Protocol PRN Reason: shortness of breath Stop: 04/03/22 20:12 Amitriptyline HCl (Amitriptyline Hcl 10 Mg Tab) 10 mg PO HS [facility] Stop: 04/03/22 20:59 Last Admin: 03/07/22 20:10 Dose: 10 mg Aspirin (Aspirin 81 Mg Ectab) 81 mg PO QAM [facility] Stop: 04/04/22 08:59 Last Admin: 03/08/22 08:38 Dose: 81 mg Atorvastatin Calcium (Atorvastatin 40 Mg Tab) 40 mg PO QAM [facility] Stop: 04/04/22 08:59 Last Admin: 03/08/22 08:38 Dose: 40 mg Baclofen (Baclofen 10 Mg Tab) 10 mg PO BID [facility] Stop: 04/03/22 20:59 Last Admin: 03/08/22 08:38 Dose: 10 mg Bupropion HCl (Bupropion Xl 150 Mg Tabcr) 150 mg PO QAM [facility] Stop: 04/04/22 08:59 Last Admin: 03/08/22 08:38 Dose: 150 mg Dextrose (Dextrose 50% 50 Ml Syringe) 25 - 50 ml IV UD PRN; Protocol PRN Reason: Hypoglycemia Protocol Stop: 04/03/22 20:12 Docusate Sodium (Docusate Sodium 100 Mg Cap) 100 mg PO BID PRN PRN Reason: Constipation Stop: 04/03/22 19:39 Enoxaparin Sodium (Enoxaparin Inj 40 Mg/0.4 Ml Syr) 40 mg SQ Q12H [facility] Stop: 04/03/22 20:59 Last Admin: 03/08/22 08:39 Dose: 40 mg Ferrous Sulfate (Ferrous Sulfate 325 Mg Tab) 325 mg PO QAM [facility] Stop: 04/04/22 08:59 Last Admin: 03/08/22 08:39 Dose: 325 mg Fluticasone/Vilanterol (Fluticasone/Vilanterol 200/25mcg 14 Puffs/Inhaler) 1 puffs INH PM [facility]; Protocol Stop: 04/03/22 20:59 Last Admin: 03/07/22 20:09 Dose: 1 puffs Furosemide (Furosemide 20 Mg Tab) 20 mg PO QAM [facility] Stop: 04/04/22 08:59 Last Admin: 03/05/22 07:32 Dose: 20 mg Glucagon (Glucagon For Inj 1 Mg Vial) 1 mg SQ UD PRN; Protocol PRN Reason: Hypoglycemia Protocol Stop: 04/03/22 20:12 Glucose (Glucose 40% Gel 15 Gm Tube) 15 - 30 gm PO UD PRN; Protocol PRN Reason: Hypoglycemia Protocol Stop: 04/03/22 20:12 Glucose (Glucose 10 Tab/Tube) 4 - 8 tab PO UD PRN; Protocol PRN Reason: Hypoglycemia Treatment Stop: 04/03/22 20:12 Ceftriaxone Sodium 2,000 mg/ (Dextrose) 70 mls @ 100 mls/hr IV 1200 ONE; Protocol Stop: 03/08/22 12:41 Insulin Aspart (Insulin Aspart Per Unit) 0 units SC ACHS [facility] Stop: 04/03/22 20:59 Last Admin: 03/08/22 08:43 Dose: 3 units Miscellaneous (Carbohydrates For Hypoglycemia ) 15 - 30 gm PO UD PRN PRN Reason: Hypoglycemia Protocol Stop: 04/03/22 20:12 Montelukast Sodium (Montelukast Sodium 10 Mg Tablet) 10 mg PO PM [facility] Stop: 04/03/22 20:59 Last Admin: 03/07/22 20:10 Dose: 10 mg Ondansetron HCl (Ondansetron Inj 2 Mg/Ml 2 Ml Vial) 4 mg IV Q6H PRN PRN Reason: Nausea Stop: 04/03/22 20:12 Oxycodone/Acetaminophen (Oxycodone/Acetaminophen 10-325 Tab) 1 tab PO Q6H PRN PRN Reason: severe pain (7-10) Stop: 03/18/22 19:32 Last Admin: 03/07/22 20:07 Dose: 1 tab Pantoprazole Sodium (Pantoprazole 40 Mg Tab) 40 mg PO BID [facility] Stop: 04/03/22 20:59 Last Admin: 03/08/22 08:38 Dose: 40 mg Polyethylene Glycol (Polyethylene (Miralax) 17 Gm Pack) 17 gm PO DAILY PRN PRN Reason: Constipation Stop: 04/03/22 20:12 Potassium Chloride (Potassium Chloride 10 Meq Tabcr) 10 meq PO BID [facility] Stop: 04/03/22 20:59 Last Admin: 03/08/22 08:38 Dose: 10 meq Ropinirole HCl (Ropinirole Hcl 1 Mg Tablet) 1 mg PO HS [facility] Stop: 04/03/22 20:59 Last Admin: 03/07/22 20:08 Dose: 1 mg Vitamin D (Cholecalciferol 1,000 Units 25 Mcg Tab) 2,000 units PO QAM [facility] Stop: 04/04/22 08:59 Last Admin: 03/08/22 08:38 Dose: 2,000 units
[2022-03-08] MEDS ORDERED: cefTRIAXone SODIUM 2,000 MG in DEXTROSE 5% 50 ML IV ONE (12:00)
--- NOTE | 2022-03-08 15:36 | Discharge Summary ---
Date of Service March 08, 2022 Admission HPI Per Admitting Provider Pt is a 71 y/o F with hx of DMII, COPD on home oxygen at night (2.5-3L), HTN, Moderate , HLD, RLS, Osteoporosis, Depression, Spinal stenosis, on chronic pain medication came to the ER with 3 days hx of headache, 2 episodes of nausea with vomiting (NBNB). She also complain of generalized weakness. Pt denied any mid back pain, dysuria, hematuria but did complained of urinary frequency (chronic per pt). Admission Exam Per Admitting Provider General:.obese pt,NAD, well developed HEENT:.Normocephalic and atraumatic, Normal Conjunctiva, EOMI, Sclera is non- icteric Lungs:.good air entry b/l with diffuse expiratory wheezing Heart:.Normal S1, S2, no murmur Abdominal:.obese abd,Soft, NT MSK:.b/l LE pitting edema Psych:.AAOx3, normal affect Principal Diagnosis sepsis secondary to pyelonephritis complicated by bacteremia Discharge Exam General:.obese pt, NAD, well developed HEENT:. Normocephalic and atraumatic, Normal Conjunctiva, EOMI, Sclera is non- icteric Lungs:.good air entry b/l , no CTAB Heart:. Normal S1, S2, no murmur Abdominal:.obese abd, Soft, NT. -CVA tenderness on left MSK:. no LE edema Psych:. AAOx3, normal affect Discharge Data Allergies Allergy/AdvReac Type Severity Reaction Status Date / Time aspirin Allergy Intermediate Patient Verified 03/04/22 19:07 can take upto 81 mg of ASA not any higher- hives NSAIDS (Non-Steroidal Allergy Intermediate hives Verified 03/04/22 19:07 Anti-Inflamma ciprofloxacin Allergy Hives Verified 03/07/22 12:08 tramadol AdvReac Intermediate URINARY Verified 03/04/22 19:07 RETENTION Consultations 03/04/22 17:45 ED Decision to Admit Stat Ordered Studies 03/04/22 15:47 CT abd pelvis IV con only Stat CT head/brain wo con Stat Hospital Course (1) Pyelonephritis of left kidney: The patient was admitted generalized weakness, n/v, found to have complicated UTI/pyelonephritis complicated by sepsis. UA was largely positive, started on ceftriaxone in the ED. blood cultures resulted positive for pansensitive E coli. Antibiotics were continued with ceftriaxone with good response. She continued to improve on IV antibiotics. Was walking to the restroom on her own, eating well. She was discharged to complete a full 2 week course of antibiotics with bactrim for pyelonephritis and bacteremia. - presented with generalized weaknes, n/v - leukocytosis and tachycardia on admission meeting sepsis criteria - CT AP showed left sided pyelonephrisis and UA grossly positive for infection - started on IVF, ceftriaxone in ED - continue on ceftriaxone with mancini sensitive E coli on ID/susceptibilities - trialed ciprofloxacin but patient had very mild allergic reaction at infusion site - switched back to ceftriaxone - will likely need bout 5 days of IV abx due to bacteremia then can transition to PO with acceptable susceptibilities - monitor vitals and fever curve - for discharge today to complete 14 day course of abx with bactrim (2) Bacteremia: - growing GNR, same as urine - likely source is - continue ceftriaxone as above - likely will need about 5 days of IV abx at least then can transition to PO pending susceptibilities as above (3) COPD (chronic obstructive pulmonary disease): - wheezing on admission but not in respiratory distress - reports using O2 NC 2L at home at night but [facility] - restarted on inhalers - O2 NC 2L as needed - tolerating RA well today (4) DMII (diabetes mellitus, type 2): - SSI while inpatient - FSG AC+HS - diabetic diet (5) HTN (hypertension): - continue home meds (6) HLD (hyperlipidemia): - continue home meds (7) Depression: - continue home meds (8) RLS (restless legs syndrome): - continue home meds Plan Jarett Diaz MD [facility] Medicine Total Time Total Time Spent Total Time Spent (In Minutes): 30 minutes Total Time Includes: Examination of the Patient, Discharge Planning and Medication Reconciliation Discharge Plan Discharge Items Patient Disposition: Home - Self-Care Reason For Visit: PYELONEPHRITIS Discharge Diagnosis: pyelonephritis Condition on Discharge: Fair Activity: Resume your previous activity Non-emergency contact: Primary Care Provider Call non-emergency contact if: you have any medication questions, your symptoms worsen and you have a fever Follow-up/Referrals: Moreno العلي MD [Primary Care Provider] - Diet: Carb Consistent or DM2 and Heart Healthy Addtl Attending Provider Instructions: You were admitted for an infection of your kidneys that spread to your blood. You were treated with IV fluid resuscitation and antibiotics. Your symptoms improved and you were stable for discharge. You will complete 10 more days of antibiotics with a medication called Bactrim and are to follow up with you Primary care doctor within 1 week of discharge to make sure you continue to improve. Pending Studies at Discharge: No Stand-Alone Forms: My [facility], Smoking Cessation Medications and DC Order Prescriptions: New polyethylene glycol 3350 [Miralax] 17 gram Powder In Packet 17 g PO DAILY PRN (Reason: constipation) Qty: 30 0RF sulfamethoxazole-trimethoprim [Bactrim DS] 800-160 mg tablet 1 tab PO BID 10 Days Qty: 20 0RF Continued metformin 500 mg tablet 500 mg PO QAM ropinirole 1 mg Tablet 1 mg PO HS albuterol sulfate 2.5 mg /3 mL (0.083 %) Solution For Nebulization 2.5 mg INHALATION QID atorvastatin 40 mg tablet 40 mg PO QAM prednisone 10 mg tablet 10 mg PO UD Rx Instructions: PRN RESCUE KIT alendronate [Fosamax] 70 mg tablet 70 mg PO WK Rx Instructions: TAKE EVERY THU. potassium chloride [Klor-Con 10] 10 mEq tablet extended release 10 meq PO BID aspirin 81 mg Tablet,Delayed Release (Dr/Ec) 81 mg PO QAM amitriptyline 10 mg tablet 10 mg PO HS baclofen 10 mg tablet 10 mg PO BID pantoprazole [Protonix] 40 mg tablet,delayed release (DR/EC) 40 mg PO BID nitroglycerin [Nitrostat] 0.4 mg Tablet, Sublingual 0.4 mg Sublingual UD PRN (Reason: Pain) montelukast [Singulair] 10 mg Tablet 10 mg PO PM furosemide [Lasix] 20 mg tablet 20 mg PO QAM docusate sodium 100 mg Tablet 100 mg PO BID PRN (Reason: Constipation) bupropion HCl [Wellbutrin XL] 150 mg tablet extended release 24 hr 150 mg PO QAM Spiriva with HandiHaler 18 mcg capsule, w/inhalation device 1 dose Inhalation QAM cholecalciferol (vitamin D3) [Vitamin D3] 2,000 unit Capsule 2,000 unit PO QAM Dulera 200-5 mcg/actuation HFA aerosol inhaler 2 puff Inhalation BID ferrous sulfate [iron] 325 mg (65 mg iron) Tablet 325 mg PO QAM acetaminophen 500 mg tablet 1,000 mg PO Q8 PRN (Reason: Pain) fluticasone propion-salmeterol 250-50 mcg/dose blister with device 1 inh INHALATION BID oxycodone-acetaminophen 10-325 mg tablet 1 tab PO Q6H PRN (Reason: Pain) Discharge Orders: Discharge Order (Routine); Ordered 03/08/22 Ordered By: Jarett Diaz Admission Data Admit Date/Time: 03/05/22 16:23 Attending Provider: Jarett Diaz Admit Provider: Priyanka Angel Primary Care Provider: Moreno العلي Other Providers: Randall Ugarte Other Interventions: Discharge Summary Assessment (RN) Last Done: 03/08/22 12:56
[2022-03-09 11:26] LABS: MDA negative; MDEA negative; MDMA (Ecstasy) Urine, Confirm negative
--- NOTE | 2022-03-10 08:05 | Electrocardiogram Report ---
Test Reason : Blood Pressure : / mmHG Vent. Rate : 102 BPM Atrial Rate : 102 BPM P-R Int : 208 ms QRS Dur : 078 ms QT Int : 328 ms P-R-T Axes : 014 053 047 degrees QTc Int : 427 ms Sinus tachycardia with Premature atrial complexes Otherwise normal ECG When compared with ECG of 04-MAR-2022 14:37, Premature ventricular complexes are no longer Present Premature atrial complexes are now Present Confirmed by Rudi Deleon ([id number]) on 03/07/2022 1:43:01 PM Referred By: REFERRED SELF Confirmed By:Rudi Deleon
== END 2022-03-08 15:28 | disposition home or self-care (01) | DRG 872 ==
LOC: 3W 13:48 → ED 13:48 → SUATTDRO 18:24 → 3W 20:02

== ENCOUNTER 2023-07-16 22:04 | Observation (INO) ==
[2023-07-16 22:45] LABS: Basophils # (auto) 0.06 K/uL (0.00-0.20); Basophils % (auto) 0.4 %; Eosinophils # (auto) 0.03 K/uL (0.00-0.50); Eosinophils % (auto) 0.2 %; Hematocrit (blood only) 34.8 % (37.0-47.0); Hemoglobin 11.2 g/dl (12.0-16.0); Immature Granulocytes # (auto) 0.11 K/uL (0.01-0.20); Immature Granulocytes % (auto) 0.6 %; Lymphocytes # (auto) 1.27 K/uL (1.20-3.40); Lymphocytes % (auto) 7.4 %; Mean Corpuscular Hemoglobin 27.5 pg (25.0-34.0); Mean Corpuscular Hgb Conc 32.2 g/dL (32.0-36.0); Mean Corpuscular Volume 85.5 fL (80.0-100.0); Mean Platelet Volume 12.7 fL (9.4-12.4); Monocytes # (auto) 1.64 K/uL (0.11-0.59); Monocytes % (auto) 9.6 %; Neutrophils # (auto) 13.94 K/uL (1.40-6.50); Neutrophils % (auto) 81.8 %; Platelet Count 143 K/uL (130-400); RDW Standard Deviation 47.3 fL (36.4-46.3); Red Blood Count 4.07 M/uL (4.20-5.40); White Blood Count 17.05 K/ul (4.8-10.8)
[2023-07-16 23:00] LABS: Albumin Globulin Ratio 1.3 (0.9-2); Bilirubin,Total 0.9 mg/dl (0.2-1.0); Calcium 9.2 mg/dl (8.6-10.3); Est GFR (Non-African American) 37.1 ml/min; Globulin 3.1 gm/dl (2.5-4.0); Potassium 3.9 mmol/L (3.5-5.1); Total Protein 7.1 gm/dl (6.0-8.3)
--- NOTE | 2023-07-17 02:38 | Emergency Department Note ---
Impression & Plan Right lower lobe pneumonia, COPD (chronic obstructive pulmonary disease) ED Provider Note CHIEF COMPLAINT: Chest pain, COPD, pneumonia HISTORY OF PRESENTING ILLNESS: This 72-year-old female patient presents to the emergency department for evaluation of chest pain, cough, and shortness of breath that started 2 days ago. Having pain along the right side of her ribs from coughing so much. The patient states that she went to the emergency room at [place] at 8 pm and she was diagnosed with pneumonia. The patient states that she told them that she wanted to be admitted at [facility] so she came to our ER. She states that she does not think they gave her any antibiotics at [place]. She states that they did not give her any fluids or breathing treatments there either. She states that they just did the CXR and when she told them she didn't want to be admitted there, they told her to go straight to our ER. Has been having fevers of 102 F max at home. She is on 2.5 L of O2 at night. REVIEW OF SYSTEMS: See HPI for pertinent positives and pertinent negatives. ALLERGIES: Aspirin, NSAIDs, Cipro, Tramadol MEDICATIONS: See below PAST MEDICAL HISTORY: See below PHYSICAL EXAM: Vital Signs: Vitals are noted on the nurse's note and reviewed by myself. GENERAL: Non toxic in appearance and in no acute distress. SKIN: Capillary reflex less than 2 seconds. HEAD: Normocephalic, atraumatic. EARS: Bilateral external auditory canals clear without tragus tenderness. Bilateral tympanic membranes pearly blake without erythema or effusion. No mastoid tenderness bilaterally. EYES: Pupils equal round and reactive to light and accommodation. Conjunctivae without injection, sclerae without icterus. Extraocular movements intact. NOSE: Patent, turbinates inflamed with no discharge. No sinus tenderness. MOUTH: Mucous membranes moist. Airway patent, uvula midline. Pharynx is not erythematous and not edematous without exudate. Pharynx without postnasal drip. No evidence for peritonsillar abscess. NECK: Supple without nuchal rigidity. No lymphadenopathy. HEART: Tachycardic without murmurs gallops or rubs. LUNGS: Clear to auscultation bilaterally with scattered wheezes and rales in the right lower lobe. Mild accessory muscle use without retractions. ABDOMEN: Positive bowel sounds x 4. Normal tympanic percussion. Soft, nontender, without masses or organomegaly. NEURO: Patient was alert and oriented. DIFFERENTIAL DIAGNOSIS: Differential diagnosis includes URI, bronchitis, pneumonia, pneumothorax, hemothorax, PE, UT, pericarditis, myocarditis, airway obstruction, aspiration, pulmonary edema, asthma, COPD, CHF, pleurisy, metabolic acidosis, anemia, neoplasm, or others. ED COURSE AND MEDICAL DECISION MAKING: MONITOR: Continuous patient monitor: Order was placed for continuous patient monitor. Patient was placed on the patient monitor and continuous pulse ox. Patient was noted to be in sinus tachycardia at 105 bpm per my interpretation. EKG: EKG was interpreted by myself as sinus rhythm at 96 bpm with PACs, but no acute ST or T wave changes and no significant change from her previous EKG. MEDICATIONS GIVEN: 1.5 L of normal saline solution bolus. Zosyn 4.5 g IV, vancomycin 2500 mg IV. Tylenol 1000 mg IV. DuoNeb treatment. INTERPRETATION OF LABS: I interpreted the labs with full lab results as below in the lab section of this note. White blood cell count elevated at 17.05. Hemoglobin low at 11.2. Platelet count normal at 143. Sodium 134, BUN 24, creatinine 1.41, and glucose 160, but BMP otherwise essentially unremarkable. Magnesium is normal. Initial high-sensitivity troponin elevated 17 with repeat high-sensitivity troponin improved to 16.1. Lactate and procalcitonin were normal. Urinalysis questionable for infection versus contamination with culture pending. Blood cultures are pending. INTERPRETATION OF IMAGING: Chest x-ray interpreted by myself consistent with a right lower lobe pneumonia with radiology report pending. CONSULTATIONS: On-call hospitalist MDM SUMMARY: I examined the patient. The patient had been seen at [place] ER earlier today and diagnosed with pneumonia on chest x-ray. She states that she was not given any antibiotics or other treatment since she wanted to be admitted at [facility]. They discharged her home to come to our ER for admission. An IV lock was placed and labs were drawn. Initially there was concern for possible sepsis due to the patient's tachycardia, fever, and elevated white blood cell count. The patient was given 1.5 L normal saline solution bolus based on her ideal body weight. She was also given IV Zosyn and vancomycin for treatment of the pneumonia. Blood cultures are pending. However, the patient's lactate did come back normal. The patient was given IV Tylenol with resolution of her fever an improvement of her pain. The patient's tachycardia did resolve after the IV fluids. The patient was given a DuoNeb treatment with improvement of her wheezes and resolution of her mild accessory muscle use. The patient has a history of COPD and requires 2.5 L of oxygen at night per patient. I had a meaningful discussion about this patient with Dr. Wright who agrees with my assessment and the treatment plan. Due to the patient's pneumonia, abnormal labs, fever, and comorbidities we feel the patient requires admission for further management. I spoke with the on-call hospitalist who agreed to admit the patient for further evaluation and treatment. The patient's care was transferred in stable condition. DIAGNOSIS: Right lower lobe pneumonia COPD Past Med/Surg History Medical History Acid reflux Anemia reason for scheduled EGD/Colonoscopy Chronic low back pain COPD (chronic obstructive pulmonary disease) not well controlled COPD (chronic obstructive pulmonary disease) Depression Diabetes mellitus type 2, diet-controlled NIDDM DMII (diabetes mellitus, type 2) DVT (deep venous thrombosis) after delivery of child > LLE Dyslipidemia HLD (hyperlipidemia) HTN (hypertension) Iron deficiency Kidney stones hx Morbid obesity Nocturnal hypoxia Non-rheumatic aortic stenosis follows with [facility] On home oxygen therapy 2.5-3> just at HS or laying down Osteoarthritis RLS (restless legs syndrome) RLS (restless legs syndrome) Sleep apnea no cpap Spinal stenosis Vertigo Surgical History History of cataract surgery bilat History of lithotripsy History of tooth extraction Hx of tonsillectomy Family History Mother Breast cancer Diabetes Brother Colon cancer Social History Smoking Status: Never smoker Tobacco Type: Cigarettes Second Hand Exposure: No; Do You Dip or Chew Tobacco: No; Hx Alcohol Use: No Hx Substance Use: No Preferred Language: Colombian Communication Ability: Effective [employer] Required: No Beliefs That Will Affect Care: None marital status: Current Living Situation: Family Current Living Situation Comment: Lives with son and daughter How many Children do You have: 2 Feels Safe at Home: Yes Assistive Devices: Cane and Walker Allergies Allergies Allergy/AdvReac Type Severity Reaction Status Date / Time aspirin Allergy Intermediate Patient Verified 09/14/22 11:25 can take upto 81 mg of ASA not any higher- hives NSAIDS (Non-Steroidal Allergy Intermediate hives Verified 09/14/22 11:25 Anti-Inflamma ciprofloxacin Allergy Hives Verified 09/14/22 11:25 tramadol AdvReac Intermediate URINARY Verified 09/14/22 11:25 RETENTION Home Meds Home Medications Medication Instructions Recorded Confirmed alendronate 70 mg tablet (Fosamax) 70 mg PO WK 06/09/18 07/17/23 aspirin 81 mg tablet,delayed 81 mg PO QAM 06/09/18 07/17/23 release atorvastatin 40 mg tablet 40 mg PO QAM 06/09/18 07/17/23 baclofen 10 mg tablet 10 mg PO AMHS 06/09/18 07/17/23 bupropion HCl 150 mg 24 hr tablet, 150 mg PO QAM 06/09/18 07/17/23 extended release (Wellbutrin XL) docusate sodium 100 mg tablet 100 mg PO BID PRN Constipation 06/09/18 07/17/23 furosemide 20 mg tablet (Lasix) 20 mg PO QAM 06/09/18 07/17/23 montelukast 10 mg tablet 10 mg PO QAM 06/09/18 07/17/23 (Singulair) pantoprazole 40 mg tablet,delayed 40 mg PO BID 06/09/18 07/17/23 release (Protonix) potassium chloride 10 mEq 10 meq PO AMHS 06/09/18 07/17/23 tablet,extended release (Klor-Con) tiotropium bromide 18 mcg capsule 1 dose inhalation QAM 06/09/18 07/17/23 with inhalation device (Spiriva with HandiHaler) albuterol sulfate 2.5 mg/3 mL 2.5 mg inhalation Q4 PRN as 08/04/19 07/17/23 (0.083 %) solution for nebulization directed fluticasone 250 mcg-salmeterol 50 1 inh inhalation BID 03/04/22 07/17/23 mcg/dose blistr powdr for inhalation oxycodone-acetaminophen 10 mg-325 1 tab PO Q6H PRN Pain, Severe 03/04/22 07/17/23 mg tablet amitriptyline 25 mg tablet 25 mg PO HS 07/17/23 07/17/23 glipizide 5 mg tablet, extended 5 mg PO DAILY 07/17/23 07/17/23 release 24 hr ipratropium 20 mcg-albuterol 100 1 puff inhalation QID 07/17/23 07/17/23 mcg/actuation mist for inhalation lorazepam 0.5 mg tablet 0.5 mg PO Q8 PRN Anxiety 07/17/23 07/17/23 losartan 50 mg tablet 75 mg PO QAM 07/17/23 07/17/23 meclizine 12.5 mg tablet 12.5 mg PO TID PRN Dizziness 07/17/23 07/17/23 ondansetron HCl 4 mg tablet 8 mg PO Q8 PRN Nausea 07/17/23 07/17/23 ropinirole 3 mg tablet 3 mg PO HS 07/17/23 07/17/23 trazodone 50 mg tablet 50 mg PO HS PRN Sleep 07/17/23 07/17/23 Previous Rx's Medication Instructions Recorded polyethylene glycol 3350 17 gram 17 g PO DAILY PRN constipation #30 03/08/22 oral powder packet (Miralax) ea Results & Data (ED) Vital Signs Vital Signs - 24 hr 07/16/23 22:08 07/17/23 02:54 07/17/23 03:00 Temperature 37.7 C H Temperature Source Oral Pulse Rate 103 H 101 H 103 H Pulse Rate from SpO2 Sensor 102 H Respiratory Rate 24 19 Respiratory Effort / Characteristics Non-Labored Spontaneous Respiratory Depth Normal Blood Pressure 153/67 H Blood Pressure Mean 95 Pulse Oximetry 91 96 Oxygen Delivery Method Room Air Room Air Sepsis Recent Fever Within 48 Hours No Sepsis New/Unexplained Change in Mental Status No Sepsis Action Taken by Nursing Physician Notified 07/17/23 03:09 07/17/23 04:00 07/17/23 05:00 Temperature Temperature Source Pulse Rate 93 H 89 Pulse Rate from SpO2 Sensor 76 Respiratory Rate 18 13 Respiratory Effort / Characteristics Respiratory Depth Blood Pressure Blood Pressure Mean Pulse Oximetry 95 94 93 Oxygen Delivery Method Room Air Room Air Room Air Sepsis Recent Fever Within 48 Hours Sepsis New/Unexplained Change in Mental Status Sepsis Action Taken by Nursing Laboratory Data 07/17/23 06:24 07/17/23 06:24 Lab Results 1107/17/23 07/17/23 Range/Units 22:28 03:12 03:13 WBC 17.05 H (4.8-10.8) K/ul RBC 4.07 L (4.20-5.40) M/uL Hgb 11.2 L (12.0-16.0) g/dl Hct 34.8 L (37.0-47.0) % MCV 85.5 (80.0-100.0) fL MCH 27.5 (25.0-34.0) pg MCHC 32.2 (32.0-36.0) g/dL RDW Std Deviation 47.3 H (36.4-46.3) fL RDW Coeff of Isak 15.0 H (11.5-14.5) % Plt Count 143 (130-400) K/uL MPV 12.7 H (9.4-12.4) fL Immature Gran % (Auto) 0.6 % Neut % (Auto) 81.8 % Lymph % (Auto) 7.4 % [place] % (Auto) 9.6 % Eos % (Auto) 0.2 % Baso % (Auto) 0.4 % Neut # (Auto) 13.94 H (1.40-6.50) K/uL Lymph # (Auto) 1.27 (1.20-3.40) K/uL [place] # (Auto) 1.64 H (0.11-0.59) K/uL Eos # (Auto) 0.03 (0.00-0.50) K/uL Baso # (Auto) 0.06 (0.00-0.20) K/uL Immature Gran # (Auto) 0.11 (0.01-0.20) K/uL Sodium 134 L (136-145) mmol/L Potassium 3.9 (3.5-5.1) mmol/L Chloride 102 (98-107) mmol/L Carbon Dioxide 24 (21-32) mmol/L Anion Gap 8 (3-11) BUN 24 H (6-23) mg/dl Creatinine 1.41 H (0.6-1.2) mg/dl Est Cr Clr Drug Dosing 39.0 ml/min Est GFR ( Amer) 43.0 ml/min Est GFR (Non-Af Amer) 37.1 ml/min BUN/Creatinine Ratio 17.0 (10-20) Glucose 160 H (70-99(Fasting)) mg/dl Estimat Average Glucose 123 mg/dl Hemoglobin A1c 5.9 H (4.5-5.6) % Lactate 1.0 (0.4-2.0) mmol/L Calcium 9.2 (8.6-10.3) mg/dl Magnesium 1.8 (1.7-2.4) mg/dl Total Bilirubin 0.9 (0.2-1.0) mg/dl AST 12 L (13-39) U/L ALT 8 (7-52) U/L Alkaline Phosphatase 84 (34-104) U/L Troponin I High Sens 17.0 H 16.1 H (0-14) pg/ml B-Natriuretic Peptide 163 H (0-100) pg/ml Total Protein 7.1 (6.0-8.3) gm/dl Albumin 4.0 (3.4-5.0) gm/dl Globulin 3.1 (2.5-4.0) gm/dl Albumin/Globulin Ratio 1.3 (0.9-2) Lipase 22 (11-82) U/L Procalcitonin 0.34 (0-0.5) ng/ml Administered Medications Aspirin (Aspirin 81 Mg Ectab) 81 mg PO [facility] Stop: 08/16/23 08:59 Last Admin: 07/17/23 09:09 Dose: 81 mg Documented By: NH Atorvastatin Calcium (Atorvastatin 40 Mg Tab) 40 mg PO [facility] Stop: 08/16/23 08:59 Last Admin: 07/17/23 09:08 Dose: 40 mg Documented By: NH Baclofen (Baclofen 10 Mg Tab) 10 mg PO BID [facility] Stop: 08/16/23 08:59 Last Admin: 07/17/23 09:09 Dose: 10 mg Documented By: NH Bupropion HCl (Bupropion Xl 150 Mg Tabcr) 150 mg PO [facility] Stop: 08/16/23 08:59 Last Admin: 07/17/23 09:09 Dose: 150 mg Documented By: NH Fluticasone/Vilanterol (Fluticasone/Vilanterol 100/25mcg 14 Puffs/Inhaler) 1 puffs INH [facility] Stop: 08/16/23 08:59 Last Admin: 07/17/23 09:07 Dose: 1 puffs Documented By: DEANDRE Heparin Sodium (Porcine) (Heparin Sod 5,000 Unit/0.5 Ml Vial) 5,000 units SQ Q8 [facility] Stop: 08/16/23 06:59 Last Admin: 07/17/23 09:08 Dose: 5,000 units Documented By: DEANDRE Ceftriaxone Sodium 2,000 mg/ (Dextrose) 50 mls @ 100 mls/hr IV DAILY [facility]; Protocol Stop: 07/24/23 08:59 Last Infusion: 07/17/23 09:41 Dose: Infused Documented By: Admin: 07/17/23 09:07 Dose: 100 mls/hr Documented By: DEANDRE Insulin Aspart (Insulin Aspart Per Unit Charge) 0 units SC ACHS [facility] Stop: 08/16/23 06:55 Last Admin: 07/17/23 09:06 Dose: 8 units Documented By: DEANDRE Co-signed By: LORENE Insulin Glargine (Lantus Per Unit Charge) 5 units SQ DAILY [facility] Stop: 08/16/23 08:59 Last Admin: 07/17/23 09:07 Dose: 5 units Documented By: DEANDRE Co-signed By: LORENE Ipratropium [place] (Ipratropium [place] Neb Soln 0.02% 2.5 Ml Vial) 0.5 mg INH Q6R [facility] Stop: 08/16/23 06:59 Last Admin: 07/17/23 07:31 Dose: 0.5 mg Documented By: SHAWANDA Levalbuterol HCl (Levalbuterol 1.25 Mg/3 Ml Neb) 1.25 mg NEB Q6R [facility] Stop: 08/16/23 06:59 Last Admin: 07/17/23 07:31 Dose: 1.25 mg Documented By: SHAWANDA Montelukast Sodium (Montelukast Sodium 10 Mg Tablet) 10 mg PO QAM [facility] Stop: 08/16/23 08:59 Last Admin: 07/17/23 09:09 Dose: 10 mg Documented By: DEANDRE Pantoprazole Sodium (Pantoprazole 40 Mg Tab) 40 mg PO BID [facility] Stop: 08/16/23 08:59 Last Admin: 07/17/23 09:09 Dose: 40 mg Documented By: DEANDRE Umeclidinium [place] (Umeclidinium [place] 62.5mcg/Blister 7 Puffs/Inhaler) 1 puffs INH QAM [facility] Stop: 08/16/23 08:59 Last Admin: 07/17/23 09:09 Dose: 1 puffs Documented By: DEANDRE Discontinued Medications Albuterol (Albut/Ipratrop 3mg/0.5mg Neb 3 Ml Vial) 3 ml NEB NOW STA; Protocol Stop: 07/17/23 02:55 Last Admin: 07/17/23 03:15 Dose: 3 ml Documented By: MAY Benzonatate (Benzonatate 100 Mg Capsule) 100 mg PO NOW ONE Stop: 07/17/23 06:52 Last Admin: 07/17/23 06:56 Dose: 100 mg Documented By: MAY Sodium Chloride (Nss) 1,000 mls @ 999 mls/hr IV .Q1H1M ONE Stop: 07/17/23 03:54 Last Infusion: 07/17/23 05:18 Dose: Infused Documented By: Admin: 07/17/23 03:33 Dose: 999 mls/hr Documented By: MAY Sodium Chloride (Nss) 500 mls @ 999 mls/hr IV .Q31M ONE Stop: 07/17/23 03:24 Last Infusion: 07/17/23 05:18 Dose: Infused Documented By: Admin: 07/17/23 04:30 Dose: 999 mls/hr Documented By: MAY Piperacillin Sod/Tazobactam Sod (Zosyn) 4.5 gm in 100 mls @ 200 mls/hr IV NOW ONE Stop: 07/17/23 03:23 Last Infusion: 07/17/23 03:54 Dose: Infused Documented By: Admin: 07/17/23 03:14 Dose: 200 mls/hr Documented By: MAY Vancomycin HCl 2,500 mg/ (Sodium Chloride) 550 mls @ 200 mls/hr IV NOW ONE Stop: 07/17/23 05:38 Last Admin: 07/17/23 04:44 Dose: Not Given Documented By: MAY Acetaminophen (Ofirmev) 1,000 mg in 100 mls @ 400 mls/hr IV NOW STA Stop: 07/17/23 03:31 Last Infusion: 07/17/23 03:54 Dose: Infused Documented By: Admin: 07/17/23 03:37 Dose: 400 mls/hr Documented By: MAY Doxycycline Hyclate 100 mg/ (Dextrose) 100 mls @ 50 mls/hr IV NOW ONE Stop: 07/17/23 06:44 Last Infusion: 07/17/23 07:44 Dose: Infused Documented By: Admin: 07/17/23 05:19 Dose: 50 mls/hr Documented By: MAY Magnesium Sulfate/Dextrose (Magnesium Sulfate / D5w) 1 gm in 100 mls @ 50 mls/hr IV Q2H [place] Stop: 07/17/23 08:59 Last Infusion: 07/17/23 09:23 Dose: Infused Documented By: Admin: 07/17/23 07:10 Dose: 50 mls/hr Documented By: Infusion: 07/17/23 07:10 Dose: Infused Documented By: Admin: 07/17/23 05:23 Dose: 50 mls/hr Documented By: MAY Methylprednisolone 20 mg/ (Syringe) 0.32 mls @ 1.5 mls/min IV NOW ONE Stop: 07/17/23 05:31 Last Admin: 07/17/23 05:25 Dose: 1.5 mls/min Documented By: MAY Imaging Data Radiologist's Impression: Chest X-Ray 07/16/23 22:11 SINGLE VIEW CHEST CLINICAL HISTORY: Atypical chest pain. FINDINGS: An AP, portable, upright chest radiograph is compared to study dated 09/14/2022. The examination is degraded by portable technique and patient rotation. The heart is enlarged noting atherosclerotic calcification of the thoracic aorta. The pulmonary vasculature is noncongested. There is dense airspace consolidation at the right lung base. No large pleural effusion or pneumothorax is seen. The skeletal structures are osteopenic. The bony thorax is grossly intact. IMPRESSION: Dense airspace consolidation is seen at the right lung base, typical for pneumonia/aspiration pneumonitis. Clinical correlation will be required and radiographic follow-up to resolution is recommended. ACT 112: Negative or not required by law. Electronically signed by: John Foster M.D. 07/17/2023 7:13 AM Discharge Plan Visit Data Chief Complaint: Chest Pain Stated Complaint: CHEST PAIN, COPD/PNEMONIA ED Provider: Jairo Wright ED Midlevel Provider: Aydee Gutierrez Discharge Problem: Right lower lobe pneumonia, COPD (chronic obstructive pulmonary disease) Patient Disposition: Admitted As Inpatient Condition: Good Discharge Instructions Interventions: ED Discharge Assessment Last Done: 07/17/23 06:56 Discharge Problem: Right lower lobe pneumonia Qualifiers: Pneumonia type: due to unspecified organism Qualified Code(s): J18.9 - Pneumonia, unspecified organism COPD (chronic obstructive pulmonary disease) Qualifiers: COPD type: unspecified COPD Qualified Code(s): J44.9 - Chronic obstructive pulmonary disease, unspecified
[2023-07-17] MEDS ORDERED: SODIUM CHLORIDE 0.9% 500 ML IV ONE (02:54)
[2023-07-17] MEDS ORDERED: ALBUT/IPRATROP 3MG/0.5MG NEB 3 ML VIAL NEB STA (02:54)
[2023-07-17] MEDS ORDERED: SODIUM CHLORIDE 0.9% 1,000 ML IV ONE (02:54)
[2023-07-17] MEDS ORDERED: VANCOMYCIN HCL 2,500 MG in SODIUM CHLORIDE 0.9% 500 ML IV ONE (02:54)
[2023-07-17] MEDS ORDERED: VANCOMYCIN CONSULT ACTIVE PRN (02:54)
[2023-07-17] MEDS ORDERED: PIPERACILLIN/TAZOBACTAM 4.5 GM/100 ML BAG IV ONE (02:54)
[2023-07-17] MEDS ORDERED: ACETAMINOPHEN 1,000 MG/100 ML VIAL IV STA (03:17)
[2023-07-17 03:55] LABS: Troponin I High Sensitivity 16.1 pg/ml (0-14)
[2023-07-17 04:42] LABS: Magnesium 1.8 mg/dl (1.7-2.4)
[2023-07-17] MEDS ORDERED: DOXYCYCLINE HYCLATE 100 MG in DEXTROSE 5% MINI-B 100 ML IV ONE (04:45)
--- NOTE | 2023-07-17 05:13 | History & Physical Report ---
Date of Service July 17, 2023 Assessment & Plan (1) Severe sepsis: Plan: SIRS plus ARF on CKD Secondary to community-acquired pneumonia Troponin elevation secondary to above Downtrending noted on subsequent draw COPD exacerbation secondary to above hx moderate JEMIMA on nocturnal home O2 hx PVD hypertension, BP stable DM 2 on oral medications, well-controlled as of recent hemoglobin A1c of 6.21 February 2023 Chronic anemia, hemoglobin at baseline GERD, stable on regimen anxiety/mood disorder, at baseline past tobacco abuse Medical telemetry CS, ceftriaxone, doxycycline Nebs RTC, steroid course Pulmonology consult if without improvement Baseline UA Monitor creatinine response to IVF Hold losartan until creatinine back to baseline Basal bolus insulin, ISS BG goal 1 10-1 40, carb count coverage, update hemoglobin A1c DVT prophylaxis. Heparin subcu Full code Text document was generated using Tagito voice recognition software. It may contain grammatical or spelling errors. Kindly contact undersigned for clarification of any documentation item in question. History of Present Illness Chief Complaint: Worsening cough, shortness of breath Primary Care Provider: Moreno العلي MD History obtained from patient, family, and records. Medical history significant for moderate , COPD, JEMIMA on nocturnal home O2, PVD, hypertension, hyperlipidemia, DM 2 on oral medications, CRI (baseline creatinine 1.1), chronic anemia (baseline hemoglobin 10-11), GERD, chronic pain, RLS, urolithiasis, anxiety/mood disorder, past tobacco abuse. Last [facility] confinement February 2022 for E. coli septicemia secondary to pyelonephritis. Patient confined at [facility] February 2023 for urosepsis status post stent placement. Retained left stent subsequently removed via outpatient cystoscopy at [facility] 2 months ago. 2 days ago, patient noted cough symptoms productive of junky yellow sputum. Chest pain from coughing. Poor appetite. Denies fluid retention. Denies aspiration. Possible sick contacts. Has received COVID-19 vaccination. Lowest O2 sats of 80s noted at home. Patient went to [facility] ER yesterday. She was told she had pneumonia on the right side. Patient refused admission because she preferred to be confined at [facility]. Zosyn and neb treatment administered at the ER. Medical History as above Surgical History : Urologic procedures, cataract surgery, tonsillectomy, breast biopsy Family History : Heart disease, breast cancer, colon cancer Personal/Social history : Past tobacco abuse, rare EtOH intake, disabled Allergies Allergy/AdvReac Type Severity Reaction Status Date / Time aspirin Allergy Intermediate Patient Verified 09/14/22 11:25 can take upto 81 mg of ASA not any higher- hives NSAIDS (Non-Steroidal Allergy Intermediate hives Verified 09/14/22 11:25 Anti-Inflamma ciprofloxacin Allergy Hives Verified 09/14/22 11:25 tramadol AdvReac Intermediate URINARY Verified 09/14/22 11:25 RETENTION Home Medications Medication Instructions Recorded Confirmed Type alendronate 70 mg tablet (Fosamax) 70 mg PO WK 06/09/18 07/17/23 History aspirin 81 mg tablet,delayed 81 mg PO QAM 06/09/18 07/17/23 History release atorvastatin 40 mg tablet 40 mg PO QAM 06/09/18 07/17/23 History baclofen 10 mg tablet 10 mg PO AMHS 06/09/18 07/17/23 History bupropion HCl 150 mg 24 hr tablet, 150 mg PO QAM 06/09/18 07/17/23 History extended release (Wellbutrin XL) docusate sodium 100 mg tablet 100 mg PO BID PRN Constipation 06/09/18 07/17/23 History furosemide 20 mg tablet (Lasix) 20 mg PO QAM 06/09/18 07/17/23 History montelukast 10 mg tablet 10 mg PO QAM 06/09/18 07/17/23 History (Singulair) pantoprazole 40 mg tablet,delayed 40 mg PO BID 06/09/18 07/17/23 History release (Protonix) potassium chloride 10 mEq 10 meq PO AMHS 06/09/18 07/17/23 History tablet,extended release (Klor-Con) tiotropium bromide 18 mcg capsule 1 dose inhalation QAM 06/09/18 07/17/23 History with inhalation device (Spiriva with HandiHaler) albuterol sulfate 2.5 mg/3 mL 2.5 mg inhalation Q4 PRN as 08/04/19 07/17/23 History (0.083 %) solution for nebulization directed fluticasone 250 mcg-salmeterol 50 1 inh inhalation BID 03/04/22 07/17/23 History mcg/dose blistr powdr for inhalation oxycodone-acetaminophen 10 mg-325 1 tab PO Q6H PRN Pain, Severe 03/04/22 07/17/23 History mg tablet polyethylene glycol 3350 17 gram 17 g PO DAILY PRN constipation #30 03/08/22 07/17/23 Rx oral powder packet (Miralax) ea amitriptyline 25 mg tablet 25 mg PO HS 07/17/23 07/17/23 History glipizide 5 mg tablet, extended 5 mg PO DAILY 07/17/23 07/17/23 History release 24 hr ipratropium 20 mcg-albuterol 100 1 puff inhalation QID 07/17/23 07/17/23 History mcg/actuation mist for inhalation lorazepam 0.5 mg tablet 0.5 mg PO Q8 PRN Anxiety 07/17/23 07/17/23 History losartan 50 mg tablet 75 mg PO QAM 07/17/23 07/17/23 History meclizine 12.5 mg tablet 12.5 mg PO TID PRN Dizziness 07/17/23 07/17/23 History ondansetron HCl 4 mg tablet 8 mg PO Q8 PRN Nausea 07/17/23 07/17/23 History ropinirole 3 mg tablet 3 mg PO HS 07/17/23 07/17/23 History trazodone 50 mg tablet 50 mg PO HS PRN Sleep 07/17/23 07/17/23 History Past Med/Surg History Medical History Acid reflux Anemia reason for scheduled EGD/Colonoscopy Chronic low back pain COPD (chronic obstructive pulmonary disease) not well controlled COPD (chronic obstructive pulmonary disease) Depression Diabetes mellitus type 2, diet-controlled NIDDM DMII (diabetes mellitus, type 2) DVT (deep venous thrombosis) after delivery of child > LLE Dyslipidemia HLD (hyperlipidemia) HTN (hypertension) Iron deficiency Kidney stones hx Morbid obesity Nocturnal hypoxia Non-rheumatic aortic stenosis follows with [facility] On home oxygen therapy 2.5-3> just at HS or laying down Osteoarthritis RLS (restless legs syndrome) RLS (restless legs syndrome) Sleep apnea no cpap Spinal stenosis Vertigo Surgical History History of cataract surgery bilat History of lithotripsy History of tooth extraction Hx of tonsillectomy Family History Mother Breast cancer Diabetes Brother Colon cancer Social History Smoking Status: Never smoker Tobacco Type: Cigarettes Second Hand Exposure: No; Do You Dip or Chew Tobacco: No; Hx Alcohol Use: No Hx Substance Use: No Preferred Language: Maltese Communication Ability: Effective 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: No Beliefs That Will Affect Care: None marital status: Current Living Situation: Family Current Living Situation Comment: Lives with son and daughter How many Children do You have: 2 Feels Safe at Home: Yes Assistive Devices: Cane and Walker Review of Systems Review of Systems: As per HPI, all other systems reviewed and negative Physical Exam Physical Exam: GENERAL: Comfortable, obese, no respiratory distress SKIN: Pallor, warm HEENT: Pale palpebral conjunctivae, no ptosis, dry buccal mucosa NECK : Supple, short neck, no tenderness CHEST : Decreased breath sounds, occasional expiratory wheezes, no tenderness HEART : RRR, systolic murmur ABDOMEN: Some distention, nontender EXTREMITIES : Minimal LE swelling, no LE tenderness, no other conspicuous deformities noted NEUROLOGIC : Coherent, no facial asymmetry, no other gross focality Results & Data Results & Data Vital Signs (Past 12 Hours) Vital Signs Temp Pulse Resp BP Pulse Ox O2 Del Method 07/17/23 03:09 95 Room Air 07/17/23 03:00 103 H 19 96 Room Air 07/17/23 02:54 101 H 07/16/23 22:08 37.7 C H 103 H 24 153/67 H 91 Room Air Diagnostic Findings Laboratory Results WBC 17.05 K/ul (4.8-10.8) H 07/16/23 22:28 RBC 4.07 M/uL (4.20-5.40) L 07/16/23 22:28 Hgb 11.2 g/dl (12.0-16.0) L 07/16/23 22:28 Hct 34.8 % (37.0-47.0) L 07/16/23 22:28 MCV 85.5 fL (80.0-100.0) 07/16/23 22:28 MCH 27.5 pg (25.0-34.0) 07/16/23 22:28 MCHC 32.2 g/dL (32.0-36.0) 07/16/23 22: RDW Std Deviation 47.3 fL (36.4-46.3) H 07/16/23: RDW Coeff of Isak 15.0 % (11.5-14.5) H 07/16/23 22: Plt Count 143 K/uL (130-400) 07/16/23 22: MPV 12.7 fL (9.4-12.4) H 07/16/23 22: Immature Gran % (Auto) 0.6 % 07/16/23 22: Neut % (Auto) 81.8 % 07/16/23 22: Lymph % (Auto) 7.4 % 07/16/23: Titus % (Auto) 9.6 % 07/16/23 22: Eos % (Auto) 0.2 % 07/16/23 22: Baso % (Auto) 0.4 % 07/16/23 22: Neut # (Auto) 13.94 K/uL (1.40-6.50) H 07/16/23 22: Lymph # (Auto) 1.27 K/uL (1.20-3.40) 07/16/23 22: Titus # (Auto) 1.64 K/uL (0.11-0.59) H 07/16/23 22: Eos # (Auto) 0.03 K/uL (0.00-0.50) 07/16/23 22: Baso # (Auto) 0.06 K/uL (0.00-0.20) 07/16/23 22: Immature Gran # (Auto) 0.11 K/uL (0.01-0.20) 07/16/23 22: Sodium 134 mmol/L (136-145) L 07/16/23 22: Potassium 3.9 mmol/L (3.5-5.1) 07/16/23 22: Chloride 102 mmol/L (98-107) 07/16/23 22: Carbon Dioxide 24 mmol/L (21-32) 07/16/23 22: Anion Gap 8 (3-11) 07/16/23 22: BUN 24 mg/dl (6-23) H 07/16/23 22:28 Creatinine 1.41 mg/dl (0.6-1.2) H 07/16/23 22:28 Est Cr Clr Drug Dosing 39.0 ml/min 07/16/23 22:28 Est GFR ( Amer) 43.0 ml/min 07/16/23 22:28 Est GFR (Non-Af Amer) 37.1 ml/min 07/16/23 22:28 BUN/Creatinine Ratio 17.0 (10-20) 07/16/23 22:28 Glucose 160 mg/dl (70-99(Fasting)) H 07/16/23 22:28 Lactate 1.0 mmol/L (0.4-2.0) 07/17/23 03:12 Calcium 9.2 mg/dl (8.6-10.3) 07/16/23 22:28 Magnesium 1.8 mg/dl (1.7-2.4) 07/17/23 03:13 Total Bilirubin 0.9 mg/dl (0.2-1.0) 07/16/23 22:28 AST 12 U/L (13-39) L 07/16/23 22:28 ALT 8 U/L (7-52) 07/16/23 22:28 Alkaline Phosphatase 84 U/L (34-104) 07/16/23 22:28 Troponin I High Sens 16.1 pg/ml (0-14) H 07/17/23 03:13 B-Natriuretic Peptide 163 pg/ml (0-100) H 07/17/23 03:12 Total Protein 7.1 gm/dl (6.0-8.3) 07/16/23 22:28 Albumin 4.0 gm/dl (3.4-5.0) 07/16/23 22:28 Globulin 3.1 gm/dl (2.5-4.0) 07/16/23 22:28 Albumin/Globulin Ratio 1.3 (0.9-2) 07/16/23 22:28 Lipase 22 U/L (11-82) 07/16/23 22:28 Procalcitonin 0.34 ng/ml (0-0.5) 07/17/23 03:13 Medications Administered Chest x-ray as per my interpretation right lower lobe infiltrate EKG as per my interpretation : Rate 105, sinus tachycardia, normal axis, no ischemia, PVCs
[2023-07-17] MEDS ORDERED: PROMETHAZINE HCL 12.5 MG in SODIUM CHLORIDE 0.9% 50 ML IV PRN (05:19)
[2023-07-17] MEDS: MAGNESIUM SULFATE / D5W 1 GM/100 ML BAG IV SCH ×2 (05:23→07:10)
[2023-07-17] MEDS ORDERED: methylPREDNISolone 20 MG in SYRINGE 0 ML IV ONE (05:30)
[2023-07-17 06:43] LABS: Basophils # (auto) 0.04 K/uL (0.00-0.20); Basophils % (auto) 0.3 %; Eosinophils # (auto) 0.04 K/uL (0.00-0.50); Eosinophils % (auto) 0.3 %; Hematocrit (blood only) 29.4 % (37.0-47.0); Hemoglobin 9.6 g/dl (12.0-16.0); Immature Granulocytes # (auto) 0.11 K/uL (0.01-0.20); Immature Granulocytes % (auto) 0.8 %; Lymphocytes # (auto) 0.98 K/uL (1.20-3.40); Lymphocytes % (auto) 6.7 %; Mean Corpuscular Hemoglobin 27.4 pg (25.0-34.0); Mean Corpuscular Hgb Conc 32.7 g/dL (32.0-36.0); Mean Corpuscular Volume 83.8 fL (80.0-100.0); Mean Platelet Volume 12.9 fL (9.4-12.4); Monocytes # (auto) 1.41 K/uL (0.11-0.59); Monocytes % (auto) 9.7 %; Neutrophils % (auto) 82.2 %; Platelet Count 120 K/uL (130-400); RDW Coefficient of Variation 15.2 % (11.5-14.5); RDW Standard Deviation 46.6 fL (36.4-46.3); Red Blood Count 3.51 M/uL (4.20-5.40); White Blood Count 14.58 K/ul (4.8-10.8)
[2023-07-17] MEDS ORDERED: BENZONATATE 100 MG CAPSULE PO PRN (06:51)
[2023-07-17] MEDS ORDERED: BENZONATATE 100 MG CAPSULE PO ONE (06:51)
--- NOTE | 2023-07-17 06:55 | Emergency Department Note ---
ED Visit Note Physician Evaluation Note: I agree with assessment and plan of Aydee Gutierrez PA-C. I have participated in the medical decision making. I reviewed the chest x-ray and per my interpretation there is a right lower lobe infiltrate. Jairo Wright MD
[2023-07-17] MEDS ORDERED: GLUCOSE 10 TAB/TUBE PO PRN (06:56)
[2023-07-17] MEDS ORDERED: CARBOHYDRATES FOR HYPOGLYCEMIA PO PRN (06:56)
[2023-07-17] MEDS ORDERED: GLUCOSE 40% GEL 15 GM TUBE PO PRN (06:56)
[2023-07-17] MEDS ORDERED: POLYETHYLENE (MIRALAX) 17 GM PACK PO PRN (06:56)
[2023-07-17] MEDS ORDERED: traZODone HCL 50 MG TAB PO PRN (06:56)
[2023-07-17] MEDS ORDERED: LORazepam 0.5 MG TAB PO PRN (06:56)
[2023-07-17] MEDS ORDERED: GLUCAGON FOR INJ 1 MG VIAL SQ PRN (06:56)
[2023-07-17] MEDS ORDERED: ACETAMINOPHEN 325 MG TAB PO PRN (06:56)
[2023-07-17] MEDS ORDERED: DEXTROSE 50% 50 ML SYRINGE IV PRN (06:56)
[2023-07-17 06:57] LABS: Appearance Urine Cloudy (Clear); Bacteria Urine Automated Negative (Negative); Bilirubin Urine Negative (Negative); Blood Urine Negative (Negative); Color Urine Yellow; Epithelial Cell Urine Auto >30 /lpf (0-5); Glucose Urine UA Negative (Negative); Ketones Urine Trace (Negative); Leukocyte Esterase Urine 2+ (Negative); Nitrite Urine Negative (Negative); Protein Urine 1+ (Negative); RBC Urine Automated 0-4 /hpf (0-4); Specific Gravity Urine 1.017 (1.000-1.030); Urobilinogen Urine Negative (Negative); WBC Urine Automated >30 /hpf (0-5); pH Urine 5.5 (4.5-7.5)
[2023-07-17 06:59] LABS: BUN Creatinine Ratio 16.3 (10-20); Calcium 8.4 mg/dl (8.6-10.3); Creatinine Clr Calc Pharmacy 37.4 ml/min; Est GFR (African American) 40.9 ml/min; Est GFR (Non-African American) 35.3 ml/min; Potassium 3.4 mmol/L (3.5-5.1)
[2023-07-17] MEDS ORDERED: XOPENEX/ATROVENT 1.25mg/0.5MG NEB COMBO NEB SCH (07:00)
--- NOTE | 2023-07-17 07:14 | XRay Report ---
SINGLE VIEW CHEST CLINICAL HISTORY: Atypical chest pain. FINDINGS: An AP, portable, upright chest radiograph is compared to study dated 09/14/2022. The examina tion is degraded by portable technique and patient rotation. The heart is enlarged noting atheroscle rotic calcification of the thoracic aorta. The pulmonary vasculature is noncongested. There is dense airspace consolidation at the right lung base. No large pleural effusion or pneumothorax is seen. The skeletal structures are osteopenic. The bony thorax is grossly intact. IMPRESSION: Dense airspace consolidation is seen at the right lung base, typical for pneumonia/aspira tion pneumonitis. Clinical correlation will be required and radiographic follow-up to resolution is r ecommended. ACT 112: Negative or not required by law. Electronically signed by: John Foster M.D. 07/17/2023 7:13 AM
[2023-07-17] MEDS: LEVALBUTEROL 1.25 MG/3 ML NEB NEB SCH ×3 (07:31→21:14)
[2023-07-17] MEDS: IPRATROPIUM BROMIDE NEB SOLN 0.02% 2.5 ML VIAL INH SCH ×3 (07:31→21:14)
--- OUTSIDE RECORDS SUMMARY | 2023-07-17 07:45 | External Medical Summary | Summary of Care ---
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 Name Role Phone Moreno العلي MD Primary Care Provider [phone] Reason for Visit * Reason Comments Dosage Adjustment In Person (Anticoag Cl inic) Pain Encounter Details Date Type Department Care Team (Late st Contact Info) Description 06/29/2023 11:00 AM EST Office Visit Pharmacy, [place] [address] [phone] Pharmacist1, [facility] [place] [address] [phone] Spinal stenosis of lumbar region without neurogenic claudication*; Controlled substance agreement signed Allergies Active Allergy Reactions Criticality Noted Date Comments Ciprofloxacin 09/14/2022 Other Reaction(s): Hives Metformin Nausea/vomiting Medium 11/07/2020 Nsaids 01/07/2005 Other Allergy (See Comments) Wheezing High 04/27/2023 Pt states certain fragrances can cause her to have significant asthma reaction. Prednisone 12/26/2013 ? Hives Worries about blood sugar elevation Sulfa Antibiotics 12/26/2013 hives Tramadol Other (Please comment) 02/20/2014 Urine retention documented as of this encounter (statuses as of 06/29/2023) Medications Medication Sig Dispensed Refills Start Date End Date Status Elastic Bandages & Supports (KNEE BRACE/HINGED BARS LARGE) MISCIndications:Rec urrent right knee instability Use for right knee instability 1 Each 0 10/18/2019 Active Incontinence Supply Disposable (COMFORT SHIELD ADULT DIAPERS) MISCIndications:Fem brittney stress incontinence Adult large pull ups use 2 daily and as needed. 72 Each 11 11/11/2019 Active Iron (Ferrous Sulfate) 325 (65 Fe) MG Oral Tablet Take 1 Tab by mouth daily. 0 Active BD Swab Single Use Regular Pad Use up to 3 times a day as directed Dx: E11.9 100 Each 5 02/22/2021 Active True Metrix Level 1 Low In Vitro Solution Use up to 3 times a day as directed Dx: E11.9 1 Each 2 02/22/2021 Active TRUEplus Lancets 33G Use up to 3 times a day as directed Dx: E11.9 100 Each 5 02/22/2021 Active True Metrix Blood Glucose Test In Vitro Strip (Glucose Blood) Use up to 3 times a day as directed Dx: E11.9 100 Strip 5 02/22/2021 Active True Metrix Meter w/Device Kit Use up to 3 times a day as directed Dx: E11.9 1 Kit 0 02/22/2021 Active traZODone HCl 50 MG Oral Tablet (Desyrel)Indication s:Depression TAKE 1 TABLET BY MOUTH EVERYDAY AT BEDTIME 90 Tab 1 02/22/2021 Active Additional Information Patient taking differently: 50 mg Oral HS PRN, Sleep, TAKE 1 TABLET BY MOUTH EVERYDAY AT BEDTIME, Reported on 03/03/2023 Nitroglycerin 0.4 MG Sublingual Tablet Sublingual (Nitrostat) ONE TAB UNDER TONGUE NEEDED FOR CHEST PAIN MAXIMUM 3 DOSES 50 Tablet 5 07/23/2021 Active Additional Information Patient not taking.Reported on 05/11/2023 [facility] D3 50 MCG (1999 [place]) Oral Capsule (Cholecalciferol)In dications:Vitamin D deficiency Take by mouth 1 Capsule in the morning. 90 Capsule 3 12/27/2021 Active Additional Information Patient not taking.Reported on 05/11/2023 Aspirin 81 MG Oral Tablet Delayed Release (Aspirin Low Dose)Indications:Dy slipidemia, goal LDL below 100,Type 2 diabetes mellitus with hemoglobin A1c goal of less than 7.0% ([facility]) Take by mouth 1 Tablet in the morning. 90 Tablet 3 12/27/2021 Active LORazepam 0.5 MG Oral Tablet (Ativan) Take by mouth 1 Tablet every 8 hours as needed for Anxiety. 30 Tablet 0 03/14/2022 Active Vitamin B-12 1000 MCG Oral Tablet Take by mouth 1 Tablet in the morning. 90 Tablet 0 06/16/2022 Active Additional Information Patient not taking.Reported on 04/27/2023 Docusate Sodium 100 MG Oral Capsule (Colace) Take one capsule by mouth twice a day as needed for constipation. 180 Capsule 3 07/01/2022 Active Ipratropium-Albuter ol 20-100 MCG/ACT Inhalation Aerosol Solution (Combivent Respimat) inhale 1 puff by mouth four times a day 12 g 1 07/04/2022 Active Albuterol Sulfate (2.5 MG/3ML) 0.083% Inhalation Nebulization Solution (Proventil)Indicati ons:COPD, severity to be determined (HCC) inhale contents of 1 vial ( 3 milliliters ) in nebulizer by mouth and INTO THE LUNGS every 4 hours if needed Strength: (2.5 MG/3ML) 0.083% 225 mL 3 08/15/2022 Active Furosemide 20 MG Oral Tablet (Lasix) Take 1 Tablet by mouth in the morning. 90 Tablet 3 09/10/2022 Active Atorvastatin Calcium 40 MG Oral Tablet (Lipitor) Take 1 Tablet by mouth in the morning. 90 Tablet 3 09/10/2022 Active buPROPion HCl ER (XL) 150 MG Oral Tablet Extended Release 24 Hour (Wellbutrin XL) Take 1 Tablet by mouth in the morning. 90 Tablet 3 09/10/2022 Active Losartan Potassium 50 MG Oral Tablet (Cozaar) Take 1.5 Tablets by mouth in the morning. 135 Tablet 3 09/10/2022 Active Montelukast Sodium 10 MG Oral Tablet (Singulair) Take 1 Tablet by mouth in the morning. 90 Tablet 3 09/10/2022 Active Alendronate Sodium 70 MG Oral Tablet (Fosamax)Indication s:Osteoporosis 1 tablet weekly 12 Tablet 3 09/10/2022 Active Pantoprazole Sodium 40 MG Oral Tablet Delayed Release (Protonix) TAKE 1 TABLET TWICE DAILY 30 MINUTES BEFORE BREAKFAST AND DINNER 180 Tablet 3 09/10/2022 Active rOPINIRole HCl 3 MG Oral Tablet TAKE 1 TABLET BY MOUTH AT BEDTIME. 1-3 HOURS BEFORE BEDTIME WITH FOOD FOR RESTLESS LEGS 90 Tablet 3 09/10/2022 Active Spiriva HandiHaler 18 MCG Inhalation Capsule (tiotropium bromide) INHALE THE CONTENTS OF 1 CAPSULE EVERY DAY 90 Capsule 3 02/23/2023 Active glipiZIDE ER 5 MG Oral Tablet Extended Release 24 Hour (Glucotrol XL) TAKE 1 TABLET ONE TIME DAILY 30 MINUTES BEFORE A MEAL 90 Tablet 1 03/17/2023 Active Meclizine HCl 12.5 MG Oral Tablet (Antivert) TAKE 1 TABLET THREE TIMES DAILY NEEDED FOR DIZZINESS 90 Tablet 1 04/10/2023 Active Potassium Chloride ER 10 MEQ Oral Tablet Extended ReleaseIndications: Electrolyte and fluid disorder TAKE 1 TABLET IN THE MORNING AND TAKE 1 TABLET BEFORE BEDTIME 180 Tablet 1 04/22/2023 Active Ondansetron HCl 4 MG Oral Tablet (Zofran) TAKE 2 TABLETS EVERY 8 HOURS NEEDED FOR NAUSEA 90 Tablet 1 05/30/2023 Active Fluticasone-Salmete rol 250-50 MCG/ACT Inhalation Aerosol Powder Breath Activated (Advair Diskus)Indications: COPD, group C, by GOLD 2017 classification ([facility]) INHALE 1 PUFF TWICE DAILY DIRECTED 180 Each 1 06/09/2023 Active Baclofen 10 MG Oral Tablet (Lioresal) Take 1 Tablet by mouth in the morning and 1 Tablet before bedtime. 180 Tablet 1 06/29/2023 Active Amitriptyline HCl 25 MG Oral Tablet (Elavil) Take 1 Tablet by mouth at bedtime. 90 Tablet 1 06/29/2023 Active Amitriptyline HCl 10 MG Oral Tablet (Elavil)Indications :Spinal stenosis of lumbar region without neurogenic claudication take 1 tablet by mouth at bedtime 90 Tablet 3 09/10/2022 06/29/20 Discontinu ed(Medicat ion/Dose Changed) Cyclobenzaprine HCl 5 MG Oral Tablet (Flexeril) Take 1 Tablet by mouth in the morning and 1 Tablet at noon and 1 Tablet before bedtime. As needed for muscle spasms.. 270 Tablet 0 05/25/2023 06/29/20 Discontinu ed(Medicat ion/Dose Changed) oxyCODONE-Acetamino phen 10-325 MG Oral TabletIndications:C ontrolled substance agreement signed,Spinal stenosis of lumbar region without neurogenic claudication Take 1 Tablet by mouth every 6 hours as needed for Severe Pain, (MUST LAST 30 DAYS). 70 Tablet 0 05/26/2023 11/13/20 23 Discontinu ed(Refill) documented as of this encounter (statuses as of 06/29/2023) Active Problems Problem Noted Date Diagnosed Date Depression with anxiety 06/30/2022 Morbid obesity 12/27/2021 Moderate aortic stenosis 06/11/2021 Senile osteoporosis 06/09/2021 COPD, group C, by GOLD 2017 classification 01/24 Overview: Per COPD GOLD Classification Controlled substance agreement signed 07/20/2018 HTN, goal below 130/80 10/22/2015 Overview: Per HTN Protocol #27. RLS (restless legs syndrome) 05/18/2013 Dyslipidemia 07/26/2009 Overview: Per Lipid Taxonomy. Type 2 diabetes mellitus wit h hemoglobin A1c goal of less than 8.0% 06/14/2009 Overview: Per Diabetes Taxonomy. ICD-10 update of inactive term Gastroesophageal reflux disease without esophagi tis 11/19/2007 Spinal stenosis of lumbar re gion without neurogenic claudication 08/09/2007 documented as of this encounter (statuses as of 06/29/2023) Resolved Problems Problem Noted Date Diagnosed Date Resolved Date Severe sepsis 03/02/2023 03/24/2023 Septic shock 03/02/2023 03/07/2023 Complicated UTI (urinary tract infection) 03/02/2023 03/24/2023 Hydronephrosis, left 03/02/2023 023 JONA (generalized anxiety disorder) 03/14/2022 06/30/2022 Body mass index (BMI) of 40. 0 to 44.9 in adult 01/27/2022 03/12/2022 Overview: Per Obesity protocol Food insecurity 06/24/2021 03/12/2022 Overview: Per [facility] Protocol Recurrent major depressive d isorder, in full remission 06/09/2021 06/30/2022 Food insecurity 03/25/2021 06/09/2021 Overview: Per [facility] Protocol Leg wound, left, subsequent encounter 10/18/2019 03/08/2021 Morbid obesity with BMI of 40.0-44.9, adult 06/02/2019 12/27/2021 Nonrheumatic aortic valve stenosis 11/25/2018 06/11/2021 Body mass index (BMI) of 40. 0 to 44.9 in adult 07/26/2018 07/01/2019 Overview: Per Obesity protocol #1 - Rhinitis, nonallergic 01/27/20182018 Body mass index (BMI) of 45. 0 to 49.9 in adult 05/18/2017 07/30/2018 Overview: Per Obesity protocol #1 Microalbuminuria due to type 2 diabetes mellitus 02/24/2017 03/12/2022 History of tobacco use 10/26/201506/09 Nocturnal hypoxia 10/26/2015 06/09/2021 Allergic rhinitis 08/22/2013 08/22/2013 Carotid stenosis, non-symptomatic 11/19/2012 01/31/2019 OA (osteoarthritis) of knee 07/30/2012 06/09/2021 HTN, GOAL BELOW 140/80 04/05/201211/21 Overview: Per HTN Protocol #27. Renal stone 03/29/2012 01/31/2019 COPD, severe 06/23/2011 01/26/2019 Overview: Per COPD GOLD Classification HTN, GOAL BELOW 130/80 07/10/200904/08 Overview: Modified per HTN protocol #16. PURE HYPERCHOLESTEROLEM 09/18/200607/17 Overview: Per Lipid Taxonomy. ADVANCE DIRECTIVE INFORMATION 01/08/2005 06/09/2021 Overview: refused inf Type 2 diabetes mellitus wit h hemoglobin A1c goal of less than 7.0% 09/12/2004 03/24/2023 Overview: Per Diabetes Taxonomy. ICD-10 update of inactive term HYPERSOMNI W SLEEP APNEA-nocturnal oxygen 07/22/2004 06/09/2021 Tobacco use disorder 03/22/2004 016 EXT ASTHMA W-O STAT ASTH 02/2011 LUMBAGO 08/09/2007 HYPERTENSION NOS 07/10/2009 Overview: Modified per HTN protocol #16. GENERAL OSTEOARTHROSIS 06/09 documented as of this encounter (statuses as of 06/29/2023) Immunizations Name Administration Dates Next Due COVID-19 mRNA, LNP-s, No Pre serve, 2-Dose Series (Moderna) 11/17/2020,10/20/2020 H1N1 2009 Influenza, IM 08/15/2009 Pneumococcal Conjugate Vacc, 13 Valent (Prevnar) 02/04/2016 Pneumococcal Polysaccharide PPV23 (Pneumovax) 02/24/2017 SEASONAL INFLUENZA, PF, 6 M & Above, IM , (FLULAVAL or FLUZONE) 06/13/2018,07/20/2017 Season Influenza, Quad, PF, Adjuvanted, 65+ Yrs, IM (FLUAD) 07/09/2020 Seasonal Influenza Virus Vac cine, Unspecified Formulation 07/09/2020,06/02/2019,06/13/2018,07/20,05/14/2016,04/18/2014,05/18/2013 ,06/15/2012,05/14/2011,05/03/2010,04/17,06/17/2008,08/09/2007, 5,05/27/2004,07/23/2001 Seasonal Influenza, Quadriva lent Hd (Fluzone Hd) 05/11/2023,07/01/2022,06/11/2021 Seasonal Influenza, Quadriva lent, No Preserve, IM 05/14/2016 Seasonal Influenza, Split, I IV3, With Preserve, Inj 05/03/2015,04/18/2014,05/18/2013,06/15,05/14/2011,05/03/2010,05/02/2009 ,06/17/2008,08/09/2007 Seasonal Influenza, Trivalen t, Adjuvanted, 65+ yrs 06/02/2019 TDAP (age 10 and older)(Boostrix) 02/24/2017 TDAP (age 11 and older)(Adacel) 03/02/2008 Varicella Zoster Vaccine (Adult) 07/30/2012 Zoster Vaccine Recombinant (Shingrix) 05/27/2020 ,03/08/2020 documented as of this encounter Social History Tobacco Use Types Packs/Day Years Used Date Smoking Tobacco: Former Cigarettes 0.3 48 Q uit: 05/19/2014 Smokeless Tobacco: Never Alcohol Use Standard Drinks/Week Comments Yes 0 (1 standard drink = 0.6 oz pur e alcohol) rare PHQ-2 Answer Date Recorded PHQ Adult Total Score 2 03/08/2021 Hunger Vital Sign Answer Date Recorded Within the past 12 months, y ou worried that your food would run out before you got the money to buy more. Sometimes true Within the past 12 months, t he food you bought just didn't last and you didn't have money to get more. Often true Sex and Gender Information Value Date Recorded Sex Assigned at Female 01/31/2019 1:25 PM EDT Gender Identity Female 01/31/2019 1:25 PM EDT Sexual Orientation Straight 01/31/2019 1: 25 PM EDT Job Start Date Occupation Industry Not on file Not on file Not on file documented as of this encounter Functional Status Functional Status Response Date of Assess ment Do you have serious difficul ty walking or climbing stairs? (5 years old or older) No 03/04/2023 documented as of this encounter Progress Notes * Rolf Ortiz R, [facility] - 06/29/2023 11:04 AM EST Images from the original note were not included. Medication Therapy Disease Management Clinic - Chronic Pain Management Progress Note 06/29/2023 Anika Salvador, identified by name and date of , is a 72 year old female being seen for chronic pain management/education. Patient presents to pain MTM clinic for return visit. Referring Physician: Moreno العلي MD Medication Use Agreement: 05/25/23 Patient's Pharmacy: [facility] CHIEF COMPLAINT: back pain with arthritis of knees HPI: Cold weather causing increased arthritis pain in hands and knees Not as active due to increased pain and cold weather Back pain unchanged Stopped Flexeril due to "too much" drowsiness Restarted Baclofen 10mg at bedtime (helps with pain and sleeps better) Pain described as: neuropathy in feet, back pain is aching pain Sleep: trouble getting to sleep and staying asleep Palliating factors: heating pad provide minimal relief, hot showers Exacerbating factors: standing too long, lifting Other interventions tried: Chiropractor Massage Physical Therapy TENS Unit Worst time of day for pain: gets worse throughout the day Imaging: PROCEDURE INFORMATION: Exam: XR Right Knee Exam date and time: 03/05/2023 1:51 PM Age: 72 years old Clinical indication: Other: S/P fall, right knee pain TECHNIQUE: Imaging protocol: Radiologic exam of the right knee. Views: 1 or 2 views. COMPARISON: DX XR KNEE 4 OR MORE VIEWS 10/10/2022 8:40 PM FINDINGS: Bones/joints: There are pronounced degenerative changes of the knee joint, predominantly involving the medial and patellofemoral joint compartment.There are marginal osteophytes present. Extensive sclerosis is present at articular surfaces. A suprapatellar joint effusion is present. Soft tissues: There is soft tissue swelling. IMPRESSION: 1. Severe degenerative changes. No definite cortical disruption appreciated. 2. Soft tissue swelling and joint effusion 3. If further imaging is required based on clinical criteria consider CT. EXAM CT scan of the lumbar spine without contrast - 03/02/2023. HISTORY 72 years old female status post fall complaining of back pain. TECHNIQUE Spiral axial acquisition was performed through the lumbar spine; axial and reformatted sagittal andcoronal images were reviewed in bone and soft tissue windows. COMPARISON Radiographs of the lumbar spine dated 12/27/2021. FINDINGS Normal alignment is maintained with preservation of lumbar lordosis. No evidence of fracture, subluxation, or destructive lesion is seen. Degenerative changes are present throughout the lumbar spine,most advanced at L4-L5 and L5-S1 junctions, where there is loss of disc height, vacuum disc phenomenon, endplate irregularities and sclerosis, marginal endplate osteophytes, diffuse disc bulging, facet arthropathy, and ligamentum flavum thickening with resultant severe spinal canal stenosis, narrowing of the lateral recesses, and severe bilateral neural foraminal narrowing with impingement of theexiting L4 and L5 nerve roots. Prespinal and paraspinal soft tissues are within normal limits. Atherosclerotic calcifications are present in the abdominal aorta and its branches. No additional significant abnormalities are detected in the imaged abdominal and pelvic structures. IMPRESSION 1. No evidence of traumatic injury or other convincing acute abnormality. Degenerative changes in the lumbar spine as described above, most advanced at L4-L5 and L5-S1 junctions, where there is severe spinal canal stenosis, narrowing of the lateral recesses, and severe bilateral neural foraminal narrowing with compression of the exiting nerve roots. Psychiatric Hx: denies Neurological Hx: denies Cardiac Hx: denies, valve dz Renal Hx: denies Hepatic Hx: denies Other: Asthma/COPD Exercise/Activity: tries to talk down the block and back Tobacco Use: Former Alcohol Use: denies Illicit Substance/Rx Abuse: denies CONTROLLED SUBSTANCE COMPLIANCE MONITORING: Opioid Risk Assessment Tool (BRQ): Total score: 0-2 points (Low risk) CAGE-AID (05/25/2023): Total score: 0 points (problem unlikely) Daily MME: 60 PDMP Reviewed (06/29/2023): Urine Toxicology Screens: 05/28/23 (neg all substances), appropriate, no oxycodone onboard Pill Count: 0 tablets, last dose on Thursday Functional Goal: QOL Most recent answers to PEG-3 scale: What number best describes your pain on average in the past week?: 9 (05/25/2023 3:00 PM) What number best describes how, during the past week, pain has interfered with your enjoyment of life?: 10 - Completely interferes (05/25/2023 3:00 PM) What number best describes how, during the past week, pain has interfered with your general activity?: 8 (05/25/2023 3:00 PM) PEG Pain Total Score: 9 (05/25/2023 3:00 PM) Past Pain Medications: SA Opioids: Tramadol (ADR - fluid retention) LA Opioids: fentanyl patch NSAIDS: hives Muscle relaxants: baclofen, flexeril (drowsiness) Antidepressants: Anticonvulsants: gabapentin (nausea) Other: Current Pain Medications: Oxycodone/APAP 10 mg/325 mg 1 tab Q6H PRN (70 tablets /30 days) Amitriptyline 10 mg HS Flexeril 5 mg TID PRN (stopped due to drowsiness) Bupropion, Ropinirole, Lorazepam (lf 02/2023, reports not taking) Creatinine Clearance: Serum creatinine: 1.1 mg/dL (H) 05/28/23 1028 Estimated creatinine clearance: 50 mL/min (A) Creatinine Results: Recent Labs Units 05/28/23 1028 03/18/23 0422 03/11/23 0413 CREATININE - [facility] mg/dL 1.1* 1.4* 1.2* Hepatic Function (ALT): Recent Labs Units 03/18/23 0422 03/11/23 0413 03/02/23 1754 ALT - [facility] U/L 11 16 18 Comprehensive Metabolic Panel Results: Results for orders placed or performed in visit on 03/18/23 COMPREHENSIVE METABOLIC PANEL Result Value Ref Range BUN 12 6 - 20 mg/dL Creatinine 1.4 (H) 0.5 - 1.0 mg/dL Estimated Glomerular Filtration Rate 39 (L) >=60 mL/min Sodium 142 135 - 146 mmol/L Potassium 4.2 3.5 - 5.1 mmol/L Chloride 103 98 - 107 mmol/L CO2 31 22 - 32 mmol/L Anion Gap 8 7 - 15 mmol/L Glucose 109 70 - 120 mg/dL Albumin 2.9 (L) 3.8 - 5.0 g/dL AST 15 10 - 35 U/L Alkaline Phosphatase 96 35 - 130 U/L Bilirubin, Total 0.3 <=1.2 mg/dL Calcium 8.7 8.4 - 10.2 mg/dL Protein 5.3 (L) 6.0 - 8.3 g/dL ALT 11 10 - 35 U/L ASSESSMENT: Patient aware MTM is a clinical pharmacist visit, with focus on medication options for current diagnoses referred by Primary Care Provider for review and optimization. Focus of this visit is Medication Optimization. Current concerns: Uncontrolled back pain, knee pain, and neuropathy. Osteoporosis. History of kidney stones. snf opiate use and hyperalgesia. Adherence: Reviewed current regimen, patient stopped Flexeril due to drowsiness, but did provide some pain relief. Reports restarting baclofen at bedtime after stopping flexeril. Using Percocet as needed, last dose was Thursday 06/21. 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 Decreased kidney function Education provided: Reviewed BONY. Discussed MOA, SE's, and expected outcomes of treatment options above, elected to increase amitriptyline and return baclofen use to twice a day as previously prescribed. I have evaluated the patient for the appropriateness and necessity of opioid pain medications. Patient has been educated towards the benefits and risks of opioid medications, including dependence, addiction, and overdose. Patient is aware of the requirements set out in the medication use agreement,including the need for routine urine drug screening. No red flags for abuse or misuse have been exhibited. PLAN: INCREASE Amitriptyline 2. STOP Flexeril 3. START Baclofen Medication changes: yes, see below Pain Medications: Oxycodone/APAP 10 mg/325 mg 1 tab Q6H PRN (70 tablets /30 days) INCREASE Amitriptyline 25 mg HS STOP Flexeril 5 mg TID PRN START Baclofen 10mg BID Bupropion, Ropinirole, Lorazepam (lf 02/2023, reports not taking) Patient verbalized understanding of the plan. Contact clinic with any issues. FOLLOW UP: Return to clinic in 4 weeks 07/29/2023 Rolf Ortiz RPh Clinical Pharmacist - Promotions Representative Medication Therapy Management Clinic 06/29/2023, 11:04 AM documented in this encounter Plan of Treatment Upcoming Encounters Date Type Department Care Team (Late st Contact Info) Description 06/30/2023 9:45 AM EST Office Visit [place] [address] [facility] [address] [phone] Chris Aldridge Jr., MD [address] [facility] [address] [id number] 07/29/2023 2:00 PM EST Office Visit Pharmacy, [place] [address] [id number] Pharmacist1, [facility] [place] [address] [phone] 08/27/2023 3:30 PM EST Appointment Radiology, [address] [place] [phone] 09/28/2023 11:40 AM EST Office Visit Family Practice [facility] [address] [place] [phone] Moreno العلي MD [address] [place] [id number] Scheduled Procedures Name Priority Associated Diagnoses Date/Ti me COLONOSCOPY FLEXIBLE PROXIMA L DIAGNOSTIC Recall Family history of colon cancer Health Maintenance Due Date Last Done Comments Alpha-1 Antitrypsin 1968 Sigmoidoscopy 1995 Hepatitis B (1 of 3 - Risk 3-dose series) 2010 *ADVANCE DIRECTIVE NOT ON FILE 08/26/2014 Fecal Occult Blood Test 11/06/2017 11/06/2016, 01/24 DXA Scan 04/12/2020 04/12/2018, 02/25/2016 Cologuard 11/04/2021 11/04/2018 Depression Screening 03/08/2022 03/08/2021 Diabetic Eye Exam 07/05/2022 07/05/2021, , 07/05/2021, Additional history exists Diabetic Foot Exam 12/27/2022 12/27/2021, 0 03/08/2021, 03/07/2020, Additional history exists Mammogram 03/04/2023 03/04/2022, 05/18, 02/13/2017, Additional history exists COVID-19 Vaccine ( season) 2023 11/17/2020, 10/20/2020 HbA1c 09/11/2023 03/11/2023, 02/14, 08/21/2022, Additional history exists Albumin/Creatinine Ratio 05/04/2024 023, 12/27/2021, 11/07/2020, Additional history exists O2 ASSESSMENT COMPLETED IN PAST YEAR FOR COPD 05/25/2024 05/25/2023 GFR 05/28/2024 05/28/2023, 08/0 09/2022, 03/11/2023, Additional history exists DTaP,Tdap,and Td Vaccines (3 - Td or Tdap) 02/24/2027 02/24/2017, 03/02/2008 Lipid Panel 03/11/2028 03/11/2023, 05/18, 03/08/2021, Additional history exists Colonoscopy 06/06/2031 06/06/2021 Colorectal Cancer Screening 06/06/2031 Hepatitis C Screening Completed 06/25/2016 Pneumococcal Vaccine: 65+ Years Completed 02/24/2017, 02/04/2016, 08/07/2005 Zoster Vaccines Completed 05/27/2020, 02/15, 07/30/2012 VITAMIN D LEVEL ONCE IN A LIFETIME-USE SMARTSET# [id number] Completed 06/12/2022, 01/31/2019, 04/06/2018, Additional history exists Influenza Vaccine (FLU shot) Completed , 07/01/2022, 06/11/2021, Additional history exists GARDASIL-HPV IMMUNIZATION SERIES Aged Out No longer eligible based on patient's age to complete this topic MENINGOCOCCAL (MENACTRA/MENVEO) Aged Out No longer eligible based on patient's age to complete this topic documented as of this encounter Medical Devices Not on filedocumented as of this encounter Visit Diagnoses Diagnosis Spinal stenosis of lumbar region without neurogenic claudication- Primary Spinal stenosis, lumbar region, without neurogenic claudication Controlled substance agreement signed Encounter for long-term (current) use of other medications documented in this encounter Advance Directives Latest Code Status on File Code Status Date Activated Date Inactivated Comments Full Code 05/25/2023 10:19 AM 05/25/2023 3:49 PM This order reflects the patients wishes and were consensually agreed upon. Question Answer Comments Discussion of Advance Directives occurred with: Not Discussed due to patient's condition Code Status History Code Status Date Activated Date Inactivated Comments Full Code 05/11/2023 9:06 AM 05/11/2023 4:38 PM This order reflects the patients wishes and were consensually agreed upon. Question Answer Comments Discussion of Advance Directives occurred with: Not Discussed due to patient's condition Full Code 03/02/2023 11:58 PM 03/09/2023 6:38 PM This order reflects the patients wishes and were consensually agreed upon. Question Answer Comments Discussion of Advance Directives occurred with: Patient Care Teams Cnc Machine Operator Relationship Specialty Start Date End Date Moreno العلي MD [address] [address] PCP - General Family Medicine 06/11/21 documented as of this encounter
--- OUTSIDE RECORDS SUMMARY | 2023-07-17 07:45 | External Medical Summary | Summary of Care ---
Author Name Unknown Organization [facility] Address [address] [place] [address] Phone [phone] Care Team Providers Care Nut Chopper Name Role Phone Moreno العلي MD Primary Care Provider [phone] Encounter Details Date Type Department Care Team (Late st Contact Info) Description 04/06/2023 Telephone Family Practice [facility] [address] [facility] [place] [address] Moreno العلي MD [address] [facility] [place] [phone] Allergies Active Allergy Reactions Criticality Noted Date [...] as of this encounter (statuses as of 07/06/2023) Medications Medication Sig Dispensed Refills Start Date End Date Status Elastic Bandages & Supports (KNEE BRACE/HINGED BARS LARGE) MISCIndications:Re current right knee instability Use for right knee instability 1 Each 0 0 Active Incontinence Supply Disposable (COMFORT SHIELD ADULT DIAPERS) MISCIndications:Fe male stress incontinence Adult large pull ups use 2 daily and as needed. 72 Each 11 0 Active Iron (Ferrous Sulfate) 325 (65 Fe) MG Oral Tablet Take 1 Tab by mouth daily. 0 Active BD Swab Single Use Regular Pad Use up to 3 times a day as directed Dx: E11.9 100 Each 5 1 Active True Metrix Level 1 Low In Vitro Solution Use up to 3 times a day as directed Dx: E11.9 1 Each 2 1 Active TRUEplus Lancets 33G Use up to 3 times a day as directed Dx: E11.9 100 Each 5 1 Active True Metrix Blood Glucose Test In Vitro Strip (Glucose Blood) Use up to 3 times a day as directed Dx: E11.9 100 Strip 5 1 Active True Metrix Meter w/Device Kit Use up to 3 times a day as directed Dx: E11.9 1 Kit 0 1 Active traZODone HCl 50 MG Oral Tablet (Desyrel)Indicatio ns:Depression TAKE 1 TABLET BY MOUTH EVERYDAY AT BEDTIME 90 Tab 1 1 Active Additional Information Patient taking differently: 50 mg Oral HS PRN, Sleep, TAKE 1 TABLET BY MOUTH EVERYDAY AT BEDTIME, Reported on 03/03/2023 Nitroglycerin 0.4 MG Sublingual Tablet Sublingual (Nitrostat) ONE TAB UNDER TONGUE NEEDED FOR CHEST PAIN MAXIMUM 3 DOSES 50 Tablet 5 1 Active Additional Information Patient not taking.Reported on 05/11/2023 [facility] D3 50 MCG (1999 UT) Oral Capsule (Cholecalciferol)I ndications:Vitamin D deficiency Take by mouth 1 Capsule in the morning. 90 Capsule 3 2 Active Additional Information Patient not taking.Reported on 05/11/2023 Aspirin 81 MG Oral Tablet Delayed Release (Aspirin Low Dose)Indications:D yslipidemia, goal LDL below 100,Type 2 diabetes mellitus with hemoglobin A1c goal of less than 7.0% ([facility]) Take by mouth 1 Tablet in the morning. 90 Tablet 3 2 Active LORazepam 0.5 MG Oral Tablet (Ativan) Take by mouth 1 Tablet every 8 hours as needed for Anxiety. 30 Tablet 0 2 Active Vitamin B-12 1000 MCG Oral Tablet Take by mouth 1 Tablet in the morning. 90 Tablet 0 2 Active Additional Information Patient not taking.Reported on 04/27/2023 Docusate Sodium 100 MG Oral Capsule (Colace) Take one capsule by mouth twice a day as needed for constipation. 180 Capsule 3 2 Active Ipratropium-Albute rol 20-100 MCG/ACT Inhalation Aerosol Solution (Combivent Respimat) inhale 1 puff by mouth four times a day 12 g 1 2 Active Albuterol Sulfate (2.5 MG/3ML) 0.083% Inhalation Nebulization Solution (Proventil)Indicat ions:COPD, severity to be determined (HCC) inhale contents of 1 vial ( 3 milliliters ) in nebulizer by mouth and INTO THE LUNGS every 4 hours if needed Strength: (2.5 MG/3ML) 0.083% 225 mL 3 2 Active Furosemide 20 MG Oral Tablet (Lasix) Take 1 Tablet by mouth in the morning. 90 Tablet 3 3 Active Atorvastatin Calcium 40 MG Oral Tablet (Lipitor) Take 1 Tablet by mouth in the morning. 90 Tablet 3 3 Active buPROPion HCl ER (XL) 150 MG Oral Tablet Extended Release 24 Hour (Wellbutrin XL) Take 1 Tablet by mouth in the morning. 90 Tablet 3 3 Active Losartan Potassium 50 MG Oral Tablet (Cozaar) Take 1.5 Tablets by mouth in the morning. 135 Tablet 3 3 Active Montelukast Sodium 10 MG Oral Tablet (Singulair) Take 1 Tablet by mouth in the morning. 90 Tablet 3 3 Active Alendronate Sodium 70 MG Oral Tablet (Fosamax)Indicatio ns:Osteoporosis 1 tablet weekly 12 Tablet 3 3 Active Pantoprazole Sodium 40 MG Oral Tablet Delayed Release (Protonix) TAKE 1 TABLET TWICE DAILY 30 MINUTES BEFORE BREAKFAST AND DINNER 180 Tablet 3 3 Active rOPINIRole HCl 3 MG Oral Tablet TAKE 1 TABLET BY MOUTH AT BEDTIME. 1-3 HOURS BEFORE BEDTIME WITH FOOD FOR RESTLESS LEGS 90 Tablet 3 3 Active Spiriva HandiHaler 18 MCG Inhalation Capsule (tiotropium bromide) INHALE THE CONTENTS OF 1 CAPSULE EVERY DAY 90 Capsule 3 3 Active glipiZIDE ER 5 MG Oral Tablet Extended Release 24 Hour (Glucotrol XL) TAKE 1 TABLET ONE TIME DAILY 30 MINUTES BEFORE A MEAL 90 Tablet 1 3 Active Baclofen 10 MG Oral Tablet (Lioresal) Take 1 Tablet by mouth in the morning and 1 Tablet before bedtime. 180 Tablet 3 3 023 Discontinued(Me dication/Dose Changed) Amitriptyline HCl 10 MG Oral Tablet (Elavil)Indication s:Spinal stenosis of lumbar region without neurogenic claudication take 1 tablet by mouth at bedtime 90 Tablet 3 3 023 Discontinued(Me dication/Dose Changed) Meclizine HCl 12.5 MG Oral Tablet (Antivert) Take 1 Tablet by mouth 3 times a day as needed for Dizziness. 90 Tablet 1 3 023 Discontinued Potassium Chloride ER 10 MEQ Oral Tablet Extended ReleaseIndications :Electrolyte and fluid disorder Take 1 Tablet by mouth in the morning and 1 Tablet before bedtime. 180 Tablet 1 3 023 Discontinued Fluticasone-Salmet deyanira 250-50 MCG/ACT Inhalation Aerosol Powder Breath Activated (Advair Diskus)Indications :COPD, group C, by GOLD 2017 classification ([facility]) inhale 1 puff by mouth and INTO THE LUNGS twice a day 180 Each 1 3 023 Discontinued documented as of this encounter (statuses as of 07/06/2023) Active Problems Problem Noted Date Diagnosed Date [...] as of this encounter (statuses as of 07/06/2023) Resolved Problems Problem Noted Date Diagnosed Date [...] as of this encounter (statuses as of 07/06/2023) Immunizations Name Administration Dates Next Due COVID-19 [...] Seasonal Influenza, Quadriva lent Hd (Fluzone Hd) 07/01/2022,06/11/2021 Seasonal Influenza, Quadriva lent, No Preserve, IM [...] No 03/04/2023 documented as of this encounter Miscellaneous Notes * Telephone Encounter - Nunu Hudson MED ASSIST - 04/09/2023 9:51 AM EDT Patient is scheduled for 04/15 * Telephone Encounter - Cata Concepcion LPN - 04/08/2023 2:08 PM EDT Office next available cysto stent removal not too long Please assist with scheduling cysto with stent removal * Telephone Encounter - Cata Concepcion LPN - 04/08/2023 1:46 PM EDT Pt had cysto with stent placement on 03/03/23. Please review and advise when pt should be seen * Telephone Encounter - Shelby Gonzalez PHARM Tech - 04/06/2023 11:25 AM EDT Patient called in and stated she has an appointment to have her Stint removed. Patient missed the appointment because she was in rehab and was not taken to the appointment. Patient would like to have a new appointment in [place]. Please advise. Thank you, Shelby Gonzalez [facility] 04/06/2023, 11:26 AM documented in this encounter Plan of Treatment Upcoming Encounters Date Type Department Care Team (Late st Contact Info) Description 07/29/2023 2:00 PM EST Office Visit Pharmacy, [address] [place] [phone] Pharmacist1, [facility] [address] [place] [phone] 08/27/2023 3:30 PM EST Appointment Radiology, [facility] [address] [place] [phone] 09/28/2023 11:40 AM EST Office Visit [facility] [place] [address] Moreno العلي MD [address] [place] [address] Scheduled Procedures Name Priority Associated Diagnoses Date/Ti [...] season) 2023 11/17/2020, 10/20/2020 HbA1c 09/11/2023 03/11/2023, 0703/2023, 08/21/2022, Additional history exists Albumin/Creatinine Ratio 05/04/2024 [...] D LEVEL ONCE IN A LIFETIME-USE SMARTSET# [id number] Completed 06/12/2022, 01/31/2019, 04/06/2018, Additional history exists Influenza Vaccine (FLU shot) Completed , 07/01/2022, 06/11/2021, Additional history exists GARDASIL-HPV IMMUNIZATION SERIES Aged Out No longer eligible based on patient's age to complete this topic MENINGOCOCCAL (MENACTRA/MENVEO) Aged Out No longer eligible based on patient's age to complete this topic documented as of this encounter Medical Devices Not on filedocumented as of this encounter Advance Directives Latest Code Status [...] Advance Directives occurred with: Patient Care Teams Nut Chopper Relationship Specialty Start Date End Date Moreno العلي MD [address] [address] PCP - General Family Medicine 06/11/21 documented as of this encounter
--- OUTSIDE RECORDS SUMMARY | 2023-07-17 07:45 | External Medical Summary | Summary of Care ---
Author Name Unknown Organization [facility] Address [address] [place] [address] Phone [phone] Care Team Providers Care Bindery Supervisor Name Role Phone Moreno العلي MD Primary Care Provider [phone] Reason for Visit * Reason Onset Date Comments New Med Request 06/29/2023 Encounter Details Date Type Department Care Team (Late st Contact Info) Description 06/29/2023 Telephone Pharmacy, [place] [address] [place] [id number] Rolf Ortiz, [facility] [address] [place] [address] New Med Request Allergies Active Allergy Reactions Criticality Noted Date [...] as of this encounter (statuses as of 07/01/2023) Medications Medication Sig Dispensed Refills Start Date [...] taking.Reported on 05/11/2023 [facility] D3 50 MCG (2000 UT) Oral Capsule (Cholecalciferol)In dications:Vitamin D deficiency Take by mouth 1 Capsule in the morning. 90 Capsule 3 12/27/2021 Active Additional Information Patient not taking.Reported on 05/11/2023 Aspirin 81 MG Oral Tablet Delayed Release (Aspirin Low Dose)Indications:Dy slipidemia, goal LDL below 100,Type 2 diabetes mellitus with hemoglobin A1c goal of less than 7.0% ([facility]) Take by mouth 1 Tablet in the [...] COPD, group C, by GOLD 2017 classification ([facility]) INHALE 1 PUFF TWICE DAILY DIRECTED 180 Each 1 06/09/2023 Active Baclofen 10 MG Oral Tablet (Lioresal) Take 1 Tablet by mouth in the morning and 1 Tablet before bedtime. 180 Tablet 1 06/29/2023 Active Amitriptyline HCl 25 MG Oral Tablet (Elavil) Take 1 Tablet by mouth at bedtime. 90 Tablet 1 06/29/2023 Active oxyCODONE-Acetamino phen 10-325 MG Oral TabletIndications:S or[place] stenosis of lumbar region without neurogenic claudication,Contro lled substance agreement signed Take 1 Tablet by mouth every 6 hours as needed for severe pain. Severe (MUST LAST 30 DAYS). 70 Tablet 0 06/29/2023 Active oxyCODONE-Acetamino phen 10-325 MG Oral TabletIndications:C ontrolled substance agreement signed,Spinal stenosis of lumbar region without neurogenic claudication Take 1 Tablet by mouth every 6 hours as needed for Severe Pain, (MUST LAST 30 DAYS). 70 Tablet 0 05/26/2023 06/29/20 23 Discontinu ed(Refill) documented as of this encounter (statuses as of 07/01/2023) Active Problems Problem Noted Date Diagnosed Date [...] as of this encounter (statuses as of 07/01/2023) Resolved Problems Problem Noted Date Diagnosed Date [...] Modified per HTN protocol #16. GENERAL OSTEOARTHROSIS 10/24 /2021 documented as of this encounter (statuses as of 07/01/2023) Immunizations Name Administration Dates Next Due COVID-19 [...] encounter Miscellaneous Notes * Telephone Encounter - Rolf Ortiz RPh - 06/29/2023 12:25 PM EST Tushar, Saw patient in [facility] Pain Management. Reviewed PDMP. Recommend continued Percocet as needed, #70 per 30 days. Prescription pended for your review and approval. ThanksRolf, PharmD Clinical Pharmacist [facility] 06/29/2023 12:28 PM documented in this encounter Plan of Treatment Upcoming Encounters Date Type Department Care Team (Late st Contact Info) Description 07/29/2023 2:00 PM EST Office Visit Pharmacy, [address] [place] [phone] Pharmacist1, [facility] [place] [address] [place] [phone] 08/27/2023 3:30 PM EST Appointment Radiology, [address] [place] [phone] 09/28/2023 11:40 AM EST Office Visit Family Practice [facility] [address] [place] [address] Moreno العلي MD [address] [place] [address] Scheduled Procedures Name Priority Associated Diagnoses Date/Ti [...] D LEVEL ONCE IN A LIFETIME-USE SMARTSET# [id number] Completed 06/12/2022, 01/31/2019, 04/06/2018, Additional history exists [...] Advance Directives occurred with: Patient Care Teams Bindery Supervisor Relationship Specialty Start Date End Date Moreno العلي MD [address] [address] PCP - General Family Medicine 06/11/21 documented as of this encounter
--- OUTSIDE RECORDS SUMMARY | 2023-07-17 07:45 | External Medical Summary | Summary of Care ---
Author Name Unknown Organization [facility] Address [address] [place] [address] Phone [phone] Care Team Providers Care Religious Assistant Name Role Phone Meaghan Wilson MD Primary Care Provider [phone] Reason for Visit * Reason Comments eRx-Medication Refill Encounter Details Date Type Department Care Team (Late st Contact Info) Description 07/08/2023 Refill Family Practice [facility] [address] [place] [address] Meaghan Wilson MD [address] [place] [address] Allergies Active Allergy Reactions Criticality Noted Date [...] as of this encounter (statuses as of 07/08/2023) Medications Medication Sig Dispensed Refills Start Date [...] hemoglobin A1c goal of less than 7.0% ([facility]) Take by mouth 1 Tablet in the [...] for constipation. 180 Capsule 3 2 Active Ipratropium-Albuter ol 20-100 MCG/ACT Inhalation Aerosol [...] s:Osteoporosis 1 tablet weekly 12 Tablet 3 3 [...] A MEAL 90 Tablet 1 3 Active Potassium Chloride ER 10 MEQ Oral Tablet Extended ReleaseIndications: Electrolyte and fluid disorder TAKE 1 TABLET IN THE MORNING AND TAKE 1 TABLET BEFORE BEDTIME 180 Tablet 1 3 Active Ondansetron HCl 4 MG Oral Tablet (Zofran) TAKE 2 TABLETS EVERY 8 HOURS NEEDED FOR NAUSEA 90 Tablet 1 3 Active Fluticasone-Salmete rol 250-50 MCG/ACT Inhalation Aerosol Powder Breath Activated (Advair Diskus)Indications: COPD, group C, by GOLD 2017 classification ([facility]) INHALE 1 PUFF TWICE DAILY DIRECTED 180 Each 1 3 Active Baclofen 10 MG Oral Tablet (Lioresal) Take 1 Tablet by mouth in the morning and 1 Tablet before bedtime. 180 Tablet 1 3 Active Amitriptyline HCl 25 MG Oral Tablet (Elavil) Take 1 Tablet by mouth at bedtime. 90 Tablet 1 3 Active oxyCODONE-Acetamino phen 10-325 MG Oral TabletIndications:S or[place] stenosis of lumbar region without neurogenic claudication,Contro lled substance agreement signed Take 1 Tablet by mouth every 6 hours as needed for severe pain. Severe (MUST LAST 30 DAYS). 70 Tablet 0 3 Active Atorvastatin Calcium 40 MG Oral Tablet (Lipitor) TAKE 1 TABLET EVERY MORNING 90 Tablet 2 3 Active Meclizine HCl 12.5 MG Oral Tablet (Antivert) TAKE 1 TABLET THREE TIMES DAILY NEEDED FOR DIZZINESS 90 Tablet 2 3 Active Montelukast Sodium 10 MG Oral Tablet (Singulair) TAKE 1 TABLET EVERY MORNING 90 Tablet 2 3 Active buPROPion HCl ER (XL) 150 MG Oral Tablet Extended Release 24 Hour (Wellbutrin XL) TAKE 1 TABLET EVERY MORNING 90 Tablet 2 3 Active Losartan Potassium 50 MG Oral Tablet (Cozaar) TAKE 1 AND 1/2 TABLETS EVERY MORNING 135 Tablet 2 3 Active buPROPion HCl ER (XL) 150 MG Oral Tablet Extended Release 24 Hour (Wellbutrin XL) Take 1 Tablet by mouth in the morning. 90 Tablet 3 3 07/08/20 23 Discontinued Losartan Potassium 50 MG Oral Tablet (Cozaar) Take 1.5 Tablets by mouth in the morning. 135 Tablet 3 3 07/08/20 23 Discontinued Montelukast Sodium 10 MG Oral Tablet (Singulair) Take 1 Tablet by mouth in the morning. 90 Tablet 3 3 07/08/20 23 Discontinued documented as of this encounter (statuses as of 07/08/2023) Active Problems Problem Noted Date Diagnosed Date [...] as of this encounter (statuses as of 07/08/2023) Resolved Problems Problem Noted Date Diagnosed Date [...] as of this encounter (statuses as of 07/08/2023) Immunizations Name Administration Dates Next Due COVID-19 [...] encounter Miscellaneous Notes * Telephone Encounter - Jairo Pulido, [facility] - 07/08/2023 1:35 PM EST Signed Prescriptions: Disp Refills Montelukast Sodium 10 MG Oral Tablet (Sing*90 Tab*2 Sig: TAKE 1 TABLET EVERY MORNINGAuthorizing Provider: MEAGHAN WILSON User: JAIRO PULIDO buPROPion HCl ER (XL) 150 MG Oral Tablet E*90 Tab*2 Sig: TAKE 1 TABLET EVERY MORNINGAuthorizing Provi michael: MEAGHAN WILSON User: JAIRO PULIDO Losartan Potassium 50 MG Oral Tablet(Coza*135 Ta*2 Sig: TAKE 1 AND 1/2 TABLETS EVERY MORNINGAuthorizing Provider: MEAGHAN WILSON User: JAIRO PULIDO documented in this encounter Plan of Treatment Upcoming Encounters Date Type Department Care Team (Late st Contact Info) Description 07/29/2023 2:00 PM EST Office Visit Pharmacy, [place] [address] [place] [id number] Pharmacist1, [facility] [place] [address] [place] [phone] 08/27/2023 3:30 PM EST Appointment Radiology, [facility] [address] [facility] [place] [phone] 09/28/2023 11:40 AM EST Office Visit Family Practice [facility] [address] [place] [address] Meaghan Wilson MD [address] [place] [address] Scheduled Procedures Name Priority Associated Diagnoses Date/Ti [...] 03/07/2020, Additional history exists Mammogram 03/04/2023 03/04/2022, 10/2 01/2021, 02/13/2017, Additional history exists COVID-19 Vaccine (3 - 2022- season) 2023 11/17/2020, 10/20/2020 HbA1c 09/11/2023 03/11/2023, [...] D LEVEL ONCE IN A LIFETIME-USE SMARTSET# [id number] Completed 06/12/2022, 01/31/2019, 04/06/2018, Additional history exists [...] Advance Directives occurred with: Patient Care Teams Religious Assistant Relationship Specialty Start Date End Date Meaghan Wilson MD [address] [facility] [place] [address] PCP - General Family Medicine 06/11/21 documented as of this encounter
--- OUTSIDE RECORDS SUMMARY | 2023-07-17 07:45 | External Medical Summary | Summary of Care ---
Author Name Unknown Organization [facility] Address [address] [place] [address] Phone [phone] Care Team Providers Care Coordinate Measuring Machine Operator Name Role Phone Meaghan Wilson MD Primary Care Provider [phone] Reason for Visit * Reason Comments eRx-Medication Refill Encounter Details Date Type Department Care Team (Late st Contact Info) Description 07/06/2023 Refill Family Practice [facility] [address] [place] [address] Meaghan Wilson MD [address] [place] [address] Allergies Active Allergy Reactions Criticality Noted Date [...] as of this encounter (statuses as of 07/07/2023) Medications Medication Sig Dispensed Refills Start Date [...] COPD, group C, by GOLD 2017 classification ([facility]) INHALE 1 PUFF TWICE DAILY DIRECTED 180 [...] FOR DIZZINESS 90 Tablet 2 3 Active Atorvastatin Calcium 40 MG Oral Tablet (Lipitor) Take 1 Tablet by mouth in the morning. 90 Tablet 3 3 07/07/20 23 Discontinued Meclizine HCl 12.5 MG Oral Tablet (Antivert) TAKE 1 TABLET THREE TIMES DAILY NEEDED FOR DIZZINESS 90 Tablet 1 3 07/07/20 23 Discontinued documented as of this encounter (statuses as of 07/07/2023) Active Problems Problem Noted Date Diagnosed Date [...] as of this encounter (statuses as of 07/07/2023) Resolved Problems Problem Noted Date Diagnosed Date [...] as of this encounter (statuses as of 07/07/2023) Immunizations Name Administration Dates Next Due COVID-19 [...] encounter Miscellaneous Notes * Telephone Encounter - Theresa Aguilar RPh - 07/07/2023 10:18 AM EST Signed Prescriptions: Disp Refills Atorvastatin Calcium 40 MG Oral Tablet (Li*90 Tab*2 Sig: TAKE 1 TABLET EVERY MORNINGAuthorizing Provider: MEAGHAN WILSON User: THERESA AGUILAR Meclizine HCl 12.5 MG Oral Tablet (Antiver*90 Tab*2 Sig: TAKE 1 TABLET THREE TIMES DAILY NEEDED FOR DIZZINESSAuthorizing Provider: MEAGHAN WILSON User: THERESA AGUILAR- documented in this encounter Plan of Treatment Upcoming Encounters Date Type Department Care Team (Late st Contact Info) Description 07/29/2023 2:00 PM EST Office Visit Pharmacy, [address] [place] [phone] Pharmacist1, [facility] [address] [place] [phone] 08/27/2023 3:30 PM EST Appointment Radiology, [facility] [address] [place] [phone] 09/28/2023 11:40 AM EST Office Visit [facility] [address] [place] [address] Meaghan Wilson MD [address] [place] [address] Scheduled Procedures Name Priority Associated Diagnoses Date/Ti [...] D LEVEL ONCE IN A LIFETIME-USE SMARTSET# [id number] Completed 06/12/2022, 01/31/2019, 04/06/2018, Additional history exists [...] Advance Directives occurred with: Patient Care Teams Coordinate Measuring Machine Operator Relationship Specialty Start Date End Date Meaghan Wilson MD [address] [place] [address] PCP - General Family Medicine 06/11/21 documented as of this encounter
--- OUTSIDE RECORDS SUMMARY | 2023-07-17 07:45 | External Medical Summary | Summary of Care ---
Author Name Unknown Organization [facility] Address [address] [place] [address] Phone [phone] Care Team Providers Care Power House Control Room Operator Name Role Phone Meaghan Wilson MD Primary Care Provider [phone] Reason for Visit * Reason Comments eRx-Medication Refill Encounter Details Date Type Department Care Team (Late st Contact Info) Description 07/15/2023 Refill Family Practice [facility] [address] [place] [address] Meaghan Wilson MD [address] [place] [address] Osteoporosis Allergies Active Allergy Reactions Criticality Noted Date [...] as of this encounter (statuses as of 07/16/2023) Medications Medication Sig Dispensed Refills Start Date [...] goal of less than 7.0% ([facility]) Take by mouth 1 Tablet in [...] Solution (Proventil)Indicati ons:COPD, severity to be determined ([facility]) inhale contents of 1 vial ( 3 milliliters ) in nebulizer by mouth and INTO THE LUNGS every 4 hours if needed Strength: (2.5 MG/3ML) 0.083% 225 mL 3 2 Active Furosemide 20 MG Oral Tablet (Lasix) Take 1 Tablet by mouth in the morning. 90 Tablet 3 3 Active rOPINIRole HCl 3 [...] C, by GOLD 2017 classification ([facility]) INHALE 1 PUFF TWICE DAILY DIRECTED [...] EVERY MORNING 135 Tablet 2 3 Active Pantoprazole Sodium 40 MG Oral Tablet Delayed Release (Protonix) TAKE 1 TABLET TWICE DAILY 30 MINUTES BEFORE BREAKFAST AND DINNER 180 Tablet 3 3 Active Alendronate Sodium 70 MG Oral Tablet (Fosamax)Indication s:Osteoporosis TAKE 1 TABLET EVERY WEEK 12 Tablet 3 3 Active Alendronate Sodium 70 MG Oral Tablet (Fosamax)Indication s:Osteoporosis 1 tablet weekly 12 Tablet 3 3 07/16/20 23 Discontinued Pantoprazole Sodium 40 MG Oral Tablet Delayed Release (Protonix) TAKE 1 TABLET TWICE DAILY 30 MINUTES BEFORE BREAKFAST AND DINNER 180 Tablet 3 3 07/16/20 23 Discontinued documented as of this encounter (statuses as of 07/16/2023) Active Problems Problem Noted Date Diagnosed Date [...] as of this encounter (statuses as of 07/16/2023) Resolved Problems Problem Noted Date Diagnosed Date [...] as of this encounter (statuses as of 07/16/2023) Immunizations Name Administration Dates Next Due COVID-19 [...] encounter Miscellaneous Notes * Telephone Encounter - Bill Howard [facility] - 07/16/2023 7:28 AM ESTSigned Prescriptions: Disp Refills Pantoprazole Sodium 40 MG Oral Tablet Anne*180 Ta*3 Sig: TAKE 1 TABLET TWICE DAILY 30 MINUTES BEFORE BREAKFAST AND DINNERAuthorizing Provider: MEAGHAN WILSON User: BILL PUTNAM Alendronate Sodium 70 MG Oral Tablet (Fosa*12 Tab*3 Sig: TAKE 1 TABLET EVERY WEEKAuthorizing Provider: MEAGHAN WILSON User: BILL PUTNAM documented in this encounter Plan of Treatment Upcoming Encounters Date Type Department Care Team (Late st Contact Info) Description 07/29/2023 2:00 PM EST Office Visit Pharmacy, [address] [place] [address] Pharmacist1, [facility] [address] [place] [address] 08/27/2023 3:30 PM EST Appointment Radiology, [facility] [address] [place] [phone] 09/28/2023 11:40 AM EST Office Visit Family [facility] [address] [place] [address] Meaghan Wilson MD [address] [place] [address] Scheduled Procedures Name Priority Associated Diagnoses Date/Ti [...] D LEVEL ONCE IN A LIFETIME-USE SMARTSET# 44344 Completed 06/12/2022, 01/31/2019, 04/06/2018, Additional history exists [...] as of this encounter Visit Diagnoses Diagnosis Osteoporosis Osteoporosis, unspecified documented in this encounter Advance Directives Latest [...] Advance Directives occurred with: Patient Care Teams Power House Control Room Operator Relationship Specialty Start Date End Date Meaghan Wilson MD [address] [place] [address] PCP - General Family Medicine 06/11/21 documented as of this encounter
--- OUTSIDE RECORDS SUMMARY | 2023-07-17 07:46 | External Medical Summary | Summary of Care ---
Author Name Unknown Organization [facility] Address [address] [place] [address] Phone [phone] Care Team Providers Care Window Treatment Installer Name Role Phone Meaghan Wilson MD Primary Care Provider [phone] Reason for Visit * Reason Onset Date Comments Hospital Follow-Up 03/07/2023 Encounter Details Date Type Department Care Team Description 03/07/2023 Telephone Family Practice [facility] [address] [place] [address] Meaghan Wilson MD [address] [place] [address] Hospital Follow-Up Allergies Active Allergy Reactions Severity Noted Date Comments Ciprofloxacin 09/14/2022 Other Reaction(s): Hives Metformin Nausea/vomiting Medium 11/07/2020 Nsaids 01/07/2005 Other Allergy (See Comments) Wheezing High 04/27/2023 Pt states certain fragrances can cause her to have significant asthma reaction. Prednisone 12/26/2013 ? Hives Worries about blood sugar elevation Sulfa Antibiotics 12/26/2013 hives Tramadol Other (Please comment) 02/20/2014 Urine retention documented as of this encounter (statuses as of 06/05/2023) Medications Medication Sig Dispensed Refills Start Date End Date Status Elastic Bandages & Supports (KNEE BRACE/HINGED BARS LARGE) MISCIndications:Recu rrent right knee instability Use for right knee instability 1 Each 0 10/18/2019 Active Incontinence Supply Disposable (COMFORT SHIELD ADULT DIAPERS) MISCIndications:Fema le stress incontinence Adult large pull ups use [...] Active traZODone HCl 50 MG Oral Tablet (Desyrel)Indications :Depression TAKE 1 TABLET BY MOUTH EVERYDAY AT [...] D3 50 MCG (1999 UT) Oral Capsule (Cholecalciferol)Ind ications:Vitamin D deficiency Take by mouth 1 Capsule in the morning. 90 Capsule 3 12/27/2021 Active Additional Information Patient not taking.Reported on 05/11/2023 Aspirin 81 MG Oral Tablet Delayed Release (Aspirin Low Dose)Indications:Dys lipidemia, goal LDL below 100,Type 2 diabetes mellitus with hemoglobin A1c goal of less than 7.0% ([facility]) Take by mouth 1 Tablet in the [...] for constipation. 180 Capsule 3 07/01/2022 Active Ipratropium-Albutero l 20-100 MCG/ACT Inhalation Aerosol Solution (Combivent Respimat) inhale 1 puff by mouth four times a day 12 g 1 07/04/2022 Active Albuterol Sulfate (2.5 MG/3ML) 0.083% Inhalation Nebulization Solution (Proventil)Indicatio ns:COPD, severity to be determined ([facility]) inhale contents [...] Active Alendronate Sodium 70 MG Oral Tablet (Fosamax)Indications :Osteoporosis 1 tablet weekly 12 Tablet 3 09/10/2022 Active Amitriptyline HCl 10 MG Oral Tablet (Elavil)Indications: Spinal stenosis of lumbar region without neurogenic claudication take 1 tablet by mouth at bedtime 90 Tablet 3 09/10/2022 Active Pantoprazole Sodium 40 MG Oral Tablet Delayed Release (Protonix) TAKE 1 TABLET TWICE DAILY 30 MINUTES BEFORE BREAKFAST AND DINNER 180 Tablet 3 09/10/2022 Active rOPINIRole HCl 3 MG Oral Tablet TAKE 1 TABLET BY MOUTH AT BEDTIME. 1-3 HOURS BEFORE BEDTIME WITH FOOD FOR RESTLESS LEGS 90 Tablet 3 09/10/2022 Active Fluticasone-Salmeter ol 250-50 MCG/ACT Inhalation Aerosol Powder Breath Activated (Advair Diskus)Indications:C OPD, group C, by GOLD 2017 classification (HCC) inhale 1 puff by mouth and INTO THE LUNGS twice a day 180 Each 1 01/09/2023 Active Spiriva HandiHaler 18 MCG Inhalation Capsule (tiotropium bromide) INHALE THE CONTENTS OF 1 CAPSULE EVERY DAY 90 Capsule 3 02/23/2023 Active documented as of this encounter (statuses as of 06/05/2023) Active Problems Problem Noted Date Depression with anxiety 06/30/2022 Morbid obesity 12/27/2021 Moderate aortic stenosis 06/11/2021 Senile osteoporosis 06/09/2021 COPD, group C, by GOLD 2017 classificati on 01/24/2019 Overview: Per COPD GOLD Classification Controlled substance agreement signed HTN, goal below 130/80 10/22/2015 Overview: Per HTN Protocol #27. RLS (restless legs syndrome) 05/18/2013 Dyslipidemia 07/26/2009 Overview: Per Lipid Taxonomy. Type 2 diabetes mellitus with hemoglobin A1c goal of less than 8.0% 06/14/2009 Overview: Per Diabetes Taxonomy. ICD-10 update of inactive term Gastroesophageal reflux disease without esophagitis 11/19/2007 Spinal stenosis of lumbar region without neurogenic claudication 08/09/2007 documented as of this encounter (statuses as of 06/05/2023) Resolved Problems Problem Noted Date Resolved Date Severe sepsis 03/02/2023 03/24/2023 Septic shock 03/02/2023 03/07/2023 Complicated UTI (urinary tract infection) 202203/24/2023 Hydronephrosis, left 03/02/2023 03/24/2023 JONA (generalized anxiety disorder) 03/14/2022 06/30/2022 Body mass index (BMI) of 40.0 to 44.9 in adult 0 01/27/2022 03/12/2022 Overview: Per Obesity protocol Food insecurity 06/24/2021 03/12/2022 Overview: Per [facility] Protocol Recurrent major depressive disorder, in full rem ission 06/09/2021 06/30/2022 Food insecurity 03/25/2021 06/09/2021 Overview: Per [facility] Protocol Leg wound, left, subsequent encounter 10/18/2019 03/08/2021 Morbid obesity with BMI of 40.0-44.9, adult 05/1712/27/2021 Nonrheumatic aortic valve stenosis 11/25/2018 06/11/2021 Body mass index (BMI) of 40.0 to 44.9 in adult 1 09/26/2017 07/01/2019 Overview: Per Obesity protocol #1 - Rhinitis, nonallergic 01/27/2018 01/31/2019 Body mass index (BMI) of 45.0 to 49.9 in adult 1 07/30/2018 Overview: Per Obesity protocol #1 Microalbuminuria due to type 2 diabetes mellitus 02/24/2017 03/12/2022 History of tobacco use 10/26/2015 1 Nocturnal hypoxia 10/26/2015 06/09/2021 Allergic rhinitis 08/22/2013 08/22/2013 Carotid stenosis, non-symptomatic 11/19/2012 01/31/2019 OA (osteoarthritis) of knee 07/30/201205/18 HTN, GOAL BELOW 140/80 04/05/2012 6 Overview: Per HTN Protocol #27. Renal stone 03/29/2012 01/31/2019 COPD, severe 06/23/2011 01/26/2019 Overview: Per COPD GOLD Classification HTN, GOAL BELOW 130/80 07/10/2009 2 Overview: Modified per HTN protocol #16. PURE HYPERCHOLESTEROLEM 09/18/2006 07/26/20 09 Overview: Per Lipid Taxonomy. ADVANCE DIRECTIVE INFORMATION 01/08/2005 Overview: refused inf Type 2 diabetes mellitus wit h hemoglobin A1c goal of less than 7.0% 09/12/2004 03/24/2023 Overview: Per Diabetes Taxonomy. ICD-10 update of inactive term HYPERSOMNI W SLEEP APNEA-nocturnal oxygen 200306/09/2021 Tobacco use disorder 03/22/2004 10/26/2015 EXT ASTHMA W-O STAT ASTH 011 LUMBAGO 08/09/2007 HYPERTENSION NOS 07/10/2009 Overview: Modified per HTN protocol #16. GENERAL OSTEOARTHROSIS 1 documented as of this encounter (statuses as of 06/05/2023) Immunizations Name Administration Dates Next Due COVID-19 [...] = 0.6 oz pur e alcohol) rare Food Insecurity Answer Date Recorded Within the past 12 months, y ou worried that your food would run out before you got money to buy more. Sometimes true 2020 Within the past 12 months, t he food you bought just didn't last and you didn't have money to get more. Often true Sex Assigned at Date Recorded Female 01/31/2019 1:25 PM E DT Job Start Date Occupation Industry Not on file Not on file Not on file documented as of this encounter Functional Status Functional Status Response Date of Assess ment Do you have serious difficul ty walking or climbing stairs? (5 years old or older) No 03/04/2023 documented as of this encounter Miscellaneous Notes * Telephone Encounter - Kori Albert - 03/09/2023 10:05 AM EDT Spoke with patient, patient still admitted- will call when she is released to schedule hospital follow up. * Telephone Encounter - JEMIMA Kruger - 03/07/2023 1:11 PM EDT Patient Name: MAYRA SALVADOR([id number]) Sex: Female : 1950 PCP: MEAGHAN WILSON Center: [facility] Types of orders made on 03/07/2023: IP Discharge, IP Post Discharge , Lab, Medications, Point of Care Testing, Point of Care Rafaela ting - Unsolicited Results Order Date:03/07/2023 Ordering User:ANDI RICHMOND [[id number]] Attending Provider:Santo Devi DO [[id number]] Authorizing Provider: Andi Richmond MD [[id number]] Department:[address] [place] [address][[id number]] Order Specific Information Order: RETURN APPT [CUSTOM: [id number]] Order #: [id number]: [id number] Priority: Routine Class: Nursing Unit Department (Single Entry) -> Family Practice Appt Needed Within: (Specify # of Days, Weeks, Months) -> 1 Wk Released on: 03/07/2023 11:41 AM Priority: Routine Class: Nursing Unit Department (Single Entry) -> Family Practice Appt Needed Within: (Specify # of Days, Weeks, Months) -> 1 Wk Released on: 03/07/2023 11:41 AM documented in this encounter Plan of Treatment Upcoming Encounters Date Type Specialty Care Team Description 06/29/2023 Office Visit Pharmacy Pharmacist1, [facility] [address] [place] [phone] 06/30/2023 Office Visit Urology Oly Pierson, Chris Monsalve MD [address] [facility] [address] [place] [address] 08/27/2023 Appointment Radiology 09/28/2023 Office Visit Family Medicine Meaghan Wilson MD [address] [place] [address] Scheduled Procedures Name Priority Associated Diagnoses Date/Ti me COLONOSCOPY FLEXIBLE PROXIMA L DIAGNOSTIC Recall Family history of colon cancer Health Maintenance Due Date Last Done Comments Alpha-1 Antitrypsin 1968 Sigmoidoscopy 1995 *ADVANCE DIRECTIVE NOT ON FILE 08/26/2014 Fecal Occult Blood Test 11/06/2017 11/06/2016, 01/24 DXA Scan 04/12/2020 04/12/2018, 02/25/2016 Cologuard 11/04/2021 11/04/2018 Depression Screening 03/08/2022 03/08/2021 DIABETES-EYE EXAM 07/05/2022 07/05/2021, , 07/05/2021, Additional history exists [...] D LEVEL ONCE IN A LIFETIME-USE SMARTSET# [id number] Completed 06/12/2022, 01/31/2019, 04/06/2018, Additional history exists Influenza Vaccine (FLU shot) Completed , 07/01/2022, 06/11/2021, Additional history exists GARDASIL-HPV IMMUNIZATION SERIES Aged Out No longer eligible based on patient's age to complete this topic Hepatitis B Aged Out No longer eligi ble based on patient's age to complete this [...] Advance Directives occurred with: Patient Care Teams Window Treatment Installer Relationship Specialty Start Date End Date Meaghan Wilson MD [address] [place] [address] PCP - General Family Medicine 06/11/21 documented as of this encounter
--- OUTSIDE RECORDS SUMMARY | 2023-07-17 07:46 | External Medical Summary | Summary of Care ---
Author Name Unknown Organization [facility] Address [address] [place] [address] Phone [phone] Care Team Providers Care Tube Laser Operator Name Role Phone Moreno العلي MD Primary Care Provider [phone] Reason for Visit * Reason Comments Medication Refill Encounter Details Date Type Department Care Team (Late st Contact Info) Description 06/24/2023 Refill Pharmacy, [place] [address] [place] [address] Kimberly Fuller, DO [address] [facility] [place] [address] Controlled substance agreement signed; Spinal stenosis of lumbar region without neurogenic claudication Allergies Active Allergy Reactions Criticality Noted Date [...] as of this encounter (statuses as of 06/24/2023) Medications Medication Sig Dispensed Refills Start Date [...] goal of less than 7.0% ([facility]) Take by mouth 1 Tablet in [...] Chloride ER 10 MEQ Oral Tablet Extended ReleaseIndications:E lectrolyte and fluid disorder TAKE 1 TABLET IN THE MORNING AND TAKE 1 TABLET BEFORE BEDTIME 180 Tablet 1 04/22/2023 Active Cyclobenzaprine HCl 5 MG Oral Tablet (Flexeril) Take 1 Tablet by mouth in the morning and 1 Tablet at noon and 1 Tablet before bedtime. As needed for muscle spasms.. 270 Tablet 0 05/25/2023 Active oxyCODONE-Acetaminop hen 10-325 MG Oral TabletIndications:Co ntrolled substance agreement signed,Spinal stenosis of lumbar region without neurogenic claudication Take 1 Tablet by mouth every 6 hours as needed for Severe Pain, (MUST LAST 30 DAYS). 70 Tablet 0 05/26/2023 Active Ondansetron HCl 4 MG Oral Tablet (Zofran) TAKE 2 TABLETS EVERY 8 HOURS NEEDED FOR NAUSEA 90 Tablet 1 05/30/2023 Active Fluticasone-Salmeter ol 250-50 MCG/ACT Inhalation Aerosol Powder Breath Activated (Advair Diskus)Indications:C OPD, group C, by GOLD 2017 classification ([facility]) INHALE 1 PUFF TWICE DAILY DIRECTED 180 Each 1 06/09/2023 Active documented as of this encounter (statuses as of 06/24/2023) Active Problems Problem Noted Date Diagnosed Date [...] as of this encounter (statuses as of 06/24/2023) Resolved Problems Problem Noted Date Diagnosed Date [...] as of this encounter (statuses as of 06/24/2023) Immunizations Name Administration Dates Next Due COVID-19 [...] encounter Miscellaneous Notes * Telephone Encounter - Tiffanie Brunson LPN - 06/24/2023 11:39 AM ESTRefused Prescriptions: Disp Refills oxyCODONE-Acetaminophen 10-325 MG Oral Tab*70 Tab*0 Sig: Take 1Tablet by mouth every 6 hours as needed for Severe Pain, (MUST LAST 30 DAYS).Refused By: TIFFANIE BRUNSON LReason for Refusal: Managed by another physician documented in this encounter Plan of Treatment Upcoming Encounters Date Type Department Care Team (Late st Contact Info) Description 06/29/2023 11:00 AM EST Office Visit Pharmacy, [place] [address] [place] [address] Pharmacist1, [facility] [place] [address] [place] [address] 06/30/2023 9:45 AM EST Office Visit Urology Santosh Marquez [address] [place] [address] [place] [address] Chris Aldridge Jr., MD [address] [place] [address] [place] [address] 08/27/2023 3:30 PM EST Appointment Radiology, [facility] [address] [place] [phone] 09/28/2023 11:40 AM EST Office Visit Family [facility] [address] [place] [address] Moreno العلي MD [address] [place] [address] Scheduled Procedures Name Priority Associated Diagnoses Date/Ti [...] D LEVEL ONCE IN A LIFETIME-USE SMARTSET# [id number] Completed 06/12/2022, 01/31/2019, 04/06/2018, Additional history exists [...] as of this encounter Visit Diagnoses Diagnosis Controlled substance agreement signed Encounter for long-term (current) use of other medications Spinal stenosis of lumbar region without neurogenic claudication Spinal stenosis, lumbar region, without neurogenic claudication documented in this encounter Advance Directives Latest [...] Advance Directives occurred with: Patient Care Teams Tube Laser Operator Relationship Specialty Start Date End Date Moreno العلي MD [address] [place] [address] PCP - General Family Medicine 06/11/21 documented as of this encounter
--- OUTSIDE RECORDS SUMMARY | 2023-07-17 07:46 | External Medical Summary | Summary of Care ---
Author Name Unknown Organization [facility] Address [address] [place] [address] Phone [phone] Care Team Providers Care Slubber Hand Name Role Phone Moreno العلي MD Primary Care Provider [phone] Reason for Visit * Reason Comments Outpatient Testing Encounter Details Date Type Department Care Team Description 05/28/2023 Laboratory Laboratory, [facility] [address] [place] [phone] [facility], Lab [address] [place], [place] [id number] Kidney stone; Spinal stenosis of lumbar region without neurogenic claudication; Senile osteoporosis; Controlled substance agreement signed Allergies Active Allergy Reactions Severity Noted Date [...] as of this encounter (statuses as of 05/28/2023) Medications Medication Sig Dispensed Refills Start Date [...] A1c goal of less than 7.0% ([facility]) Take by mouth 1 Tablet [...] OPD, group C, by GOLD 2017 classification ([facility]) inhale 1 puff by mouth and INTO [...] A MEAL 90 Tablet 1 03/17/2023 Active Ondansetron HCl 4 MG Oral Tablet (Zofran) TAKE 2 TABLETS EVERY 8 HOURS NEEDED FOR NAUSEA 90 Tablet 1 04/08/2023 Active Meclizine HCl 12.5 MG Oral Tablet [...] 30 DAYS). 70 Tablet 0 05/26/2023 Active documented as of this encounter (statuses as of 05/28/2023) Active Problems Problem Noted Date Depression with [...] as of this encounter (statuses as of 05/28/2023) Resolved Problems Problem Noted Date Resolved Date [...] as of this encounter (statuses as of 05/28/2023) Immunizations Name Administration Dates Next Due COVID-19 mRNA, LNP-s, No Pre serve, 2-Dose Series (Moderna) 11/17/2020,10/20/2020 H1N1 2009 Influenza, IM 08/15/2009 Influenza, Whole Virus 07/23/2001 Pneumococcal Conjugate Vacc, 13 Valent (Prevnar) 02/04/2016 Pneumococcal Polysaccharide PPV23 (Pneumovax) 02/24/2017,08/07/2005 SEASONAL INFLUENZA, PF, 6 M & Above, IM , (FLULAVAL or FLUZONE) 06/13/2018,07/20/2017 Season Influenza, Quad, PF, Adjuvanted, 65+ Yrs, IM (FLUAD) 07/09/2020 Seasonal Influenza Virus Vac cine, Unspecified Formulation 07/09/2020,06/02/2019,06/13/2018,07/20,05/14/2016,04/18/2014,05/18/2013 ,06/15/2012,05/14/2011,05/03/2010,04/17,06/17/2008,08/09/2007, 5,05/27/2004,07/23/2001 Seasonal Influenza, Quadriva lent Hd (Fluzone Hd) 05/11/2023,07/01/2022,06/11/2021 Seasonal Influenza, Quadriva lent, No Preserve, IM 05/14/2016 Seasonal Influenza, Split, I IV3, With Preserve, Inj 05/03/2015,04/18/2014,05/18/2013,06/15,05/14/2011,05/03/2010,05/02/2009 ,06/17/2008,08/09/2007,08/07/2005,05/17 Seasonal Influenza, Trivalen t, Adjuvanted, 65+ yrs [...] No 03/04/2023 documented as of this encounter Plan of Treatment Upcoming Encounters Date Type Specialty Care Team Description 06/29/2023 Office Visit Pharmacy Pharmacist1, [facility] [place] [address] [place] [phone] 06/30/2023 Office Visit Urology Chris Aldridge Jr., MD [address] [place] [address] [place] [phone] 08/27/2023 Appointment Radiology 09/28/2023 Office Visit Family Medicine Moreno العلي MD [address] [facility] [place] [address] Pending Results Name Type Priority Associated Diagnoses Date /Time URORISK(R) DIAGNOSTIC PROFILE Lab Routine Kidney stone 05/28/2023 10:27 AM EDT PTH Lab Routine Kidney stone 05/28/2023 10:28 AM EDT BASIC METABOLIC PANEL Lab Routine Kidney stone 05/28/2023 10:28 AM EDT URIC ACID Lab Routine Kidney stone 05/28/2023 10:28 AM EDT PAIN MANAGEMENT DRUG PANEL, URINE W/ INTERPRETATION Lab Routine Controlled substance agreement signed 05/28/2023 10:59 AM EDT Scheduled Procedures Name Priority Associated Diagnoses Date/Ti [...] 02/13/2017, Additional history exists COVID-19 Vaccine ( - season) 2023 11/17/2020, 10/20/2020 HbA1c 09/11/2023 03/11/2023, 02/14, 08/21/2022, Additional history exists GFR 03/18/2024 03/18/2023, 02/15, 03/09/2023, Additional history exists Albumin/Creatinine Ratio 05/04/2024 023, 12/27/2021, 11/07/2020, Additional history exists O2 ASSESSMENT COMPLETED IN PAST YEAR FOR COPD 05/25/2024 05/25/2023 DTaP,Tdap,and Td Vaccines (3 - Td or Tdap) 02/24/2027 02/24/2017, 03/02/2008 Lipid Panel 03/11/2028 03/11/2023, 05/18, 03/08/2021, Additional history exists Colonoscopy 06/06/2031 06/06/2021 Colorectal Cancer Screening 06/06/2031 Hepatitis C Screening Completed 06/25/2016 Pneumococcal Vaccine: 65+ Years Completed 02/24/2017, 02/04/2016, 08/07/2005 Zoster Vaccines Completed 05/27/2020, 02/15, 07/30/2012 VITAMIN D LEVEL ONCE IN A LIFETIME-USE SMARTSET# [id number] Completed 06/12/2022, 01/31/2019, 04/06/2018, Additional history exists [...] as of this encounter Visit Diagnoses Diagnosis Kidney stone Calculus of kidney Spinal stenosis of lumbar region without neurogenic claudication Spinal stenosis, lumbar region, without neurogenic claudication Senile osteoporosis Controlled substance agreement signed Encounter for long-term [...] Advance Directives occurred with: Patient Care Teams Slubber Hand Relationship Specialty Start Date End Date Moreno العلي MD [address] [place] [address] PCP - General Family Medicine 06/11/21 documented as of this encounter
--- OUTSIDE RECORDS SUMMARY | 2023-07-17 07:46 | External Medical Summary | Summary of Care ---
Author Name Unknown Organization [facility] Address [address] [place] [address] Phone [phone] Care Team Providers Care Vault Clerk Name Role Phone Meaghan Wilson MD Primary Care Provider [phone] Reason for Visit * Reason Comments eRx-Medication Refill Encounter Details Date Type Department Care Team Description 05/29/2023 Refill Family Practice [facility] [address] [place] [address] Meaghan Wilson MD [address] [place] [address] Allergies Active Allergy Reactions Severity Noted Date [...] as of this encounter (statuses as of 05/30/2023) Medications Medication Sig Dispensed Refills Start Date [...] hemoglobin A1c goal of less than 7.0% ([facility]) Take by mouth 1 Tablet in the [...] tablet weekly 12 Tablet 3 3 Active Amitriptyline HCl 10 MG Oral Tablet (Elavil)Indications :Spinal stenosis of lumbar region without neurogenic claudication take 1 tablet by mouth at bedtime 90 Tablet 3 3 Active Pantoprazole Sodium 40 MG Oral Tablet Delayed Release (Protonix) TAKE 1 TABLET TWICE DAILY 30 MINUTES BEFORE BREAKFAST AND DINNER 180 Tablet 3 3 Active rOPINIRole HCl 3 MG Oral Tablet TAKE 1 TABLET BY MOUTH AT BEDTIME. 1-3 HOURS BEFORE BEDTIME WITH FOOD FOR RESTLESS LEGS 90 Tablet 3 3 Active Fluticasone-Salmete rol 250-50 MCG/ACT Inhalation Aerosol Powder Breath Activated (Advair Diskus)Indications: COPD, group C, by GOLD 2017 classification ([facility]) inhale 1 puff by mouth and INTO THE LUNGS twice a day 180 Each 1 3 Active Spiriva HandiHaler 18 MCG Inhalation Capsule (tiotropium bromide) INHALE THE CONTENTS OF 1 CAPSULE EVERY DAY 90 Capsule 3 3 Active glipiZIDE ER 5 MG Oral Tablet Extended Release 24 Hour (Glucotrol XL) TAKE 1 TABLET ONE TIME DAILY 30 MINUTES BEFORE A MEAL 90 Tablet 1 3 Active Meclizine HCl 12.5 MG Oral Tablet (Antivert) TAKE 1 TABLET THREE TIMES DAILY NEEDED FOR DIZZINESS 90 Tablet 1 3 Active Potassium Chloride ER 10 MEQ Oral Tablet Extended ReleaseIndications: Electrolyte and fluid disorder TAKE 1 TABLET IN THE MORNING AND TAKE 1 TABLET BEFORE BEDTIME 180 Tablet 1 3 Active Cyclobenzaprine HCl 5 MG Oral Tablet (Flexeril) Take 1 Tablet by mouth in the morning and 1 Tablet at noon and 1 Tablet before bedtime. As needed for muscle spasms.. 270 Tablet 0 3 Active oxyCODONE-Acetamino phen 10-325 MG Oral TabletIndications:C ontrolled substance agreement signed,Spinal stenosis of lumbar region without neurogenic claudication Take 1 Tablet by mouth every 6 hours as needed for Severe Pain, (MUST LAST 30 DAYS). 70 Tablet 0 3 Active Ondansetron HCl 4 MG Oral Tablet (Zofran) TAKE 2 TABLETS EVERY 8 HOURS NEEDED FOR NAUSEA 90 Tablet 1 3 Active Ondansetron HCl 4 MG Oral Tablet (Zofran) TAKE 2 TABLETS EVERY 8 HOURS NEEDED FOR NAUSEA 90 Tablet 1 3 05/30/20 23 Discontinued documented as of this encounter (statuses as of 05/30/2023) Active Problems Problem Noted Date Depression with [...] as of this encounter (statuses as of 05/30/2023) Resolved Problems Problem Noted Date Resolved Date [...] 02/24/2017 03/12/2022 History of tobacco use 10/26/2015 Nocturnal hypoxia 10/26/2015 06/09/2021 Allergic rhinitis 08/22/2013 [...] Modified per HTN protocol #16. GENERAL OSTEOARTHROSIS documented as of this encounter (statuses as of 05/30/2023) Immunizations Name Administration Dates Next Due COVID-19 [...] encounter Miscellaneous Notes * Telephone Encounter - Meaghan Wilson MD - 05/30/2023 11:08 AM EDTSigned Prescriptions: Disp Refills Ondansetron HCl 4 MG Oral Tablet (Zofran) 90 Tab*1 Sig: TAKE 2 TABLETS EVERY 8 HOURS NEEDED FOR NAUSEA Authorizing Provider: MEAGHAN WILSON * Telephone Encounter - Jr Soto RPh - 05/30/2023 9:31 AM EDTPending Prescriptions: Disp Refills Ondansetron HCl 4 MG Oral Tablet (Zofran) 90 Tab*1 Sig: TAKE 2 TABLETS EVERY 8 HOURS NEEDED FOR NAUSEA * Telephone Encounter - Jr Soto RPh - 05/30/2023 9:30 AM EDT Unable to authorize medication refills for pended medication(s) at this time. Part of the protocol criteria used for refill authorization was not satisfied. Concurrent use of other medications known to prolong QT interval: amitriptyline, pantoprazole, trazodone. Please approve if appropriate. Pending Prescriptions: Disp Refills Ondansetron HCl 4 MG Oral Tablet (Zofran)*90 Tab*1 Sig: TAKE 2 TABLETS EVERY 8 HOURS NEEDED FOR NAUSEA Last Visit: 03/27/2023 (in office), Visit date not found (telemedicine) Next Visit: 09/28/2023 If no future appointments scheduled, and last appointment is greater than a year ago, please schedule patient for a follow-up appointment Last date the medication was ordered: 04-08-23 Pharmacy: [facility] [id number] [facility] Is this request for a controlled substance? No Urine Drug Screen: Results for orders placed or performed in visit on 05/28/23 PAIN MANAGEMENT DRUG PANEL, URINE W/ INTERPRETATION Result Value Compliance Interpretation Amphetamine Negative Benzodiazepines Refer to confirmation results (A) Cannabinoids Negative Cocaine Metabolite Negative Fentanyl Negative Hydrocodone / Hydromorphone Negative Methadone Metabolite Negative Morphine / Codeine Negative Oxycodone / Oxymorphone Refer to confirmation results (A) Valid Interpretation Normal Creatinine KARENA 68 Narrative Cutoff Concentrations: Drug Level Amphetamines 500 ng/mL Benzodiazepines 100 ng/mL Cannabinoids 50 ng/mL Cocaine Metabolite 150 ng/mL Fentanyl 1 ng/mL Hydrocodone / Hydromorphone 300 ng/mL Methadone Metabolite 100 ng/mL Morphine / Codeine 300 ng/mL Oxycodone / Oxymorphone 100 ng/mL Screening results are presumptive and can only be used for medical purposes. Confirmatory testing is available upon request. *Note: Due to a large number of results and/or encounters for the requested time period, some results have not been displayed. A complete set of results can be found in Results Review. Patient Phone Numbers Labs: Lab Results Component Value Date/Time CREAT 1.1 (H) 05/28/2023 10:28 AM CREAT 0.9 06/21/2020 03:28 PM CREAT 0.6 (L) 10/13/1996 03:40 PM POTASSIUM 4.5 05/28/2023 10:28 AM POTASSIUM 4.3 06/21/2020 03:28 PM POTASSIUM 3.8 10/13/1996 03:40 PM TSH 2.12 03/03/2023 06:03 AM TSH 2.63 07/01/2017 12:55 PM TSH 1.56 10/13/1996 03:40 PM LDLCALC 40 03/11/2023 04:13 AM LDLCALC 68 03/07/2020 02:30 PM LDLCALC 150. (H) 10/13/1996 03:40 PM LDLDIRECT NOT APPLICABLE 03/07/2020 02:30 PM LDLDIRECT 75 10/28/2017 04:30 PM ALT 11 03/18/2023 04:22 AM ALT 31 06/14/2019 10:57 AM ALT 16 10/13/1996 03:40 PM HGBA1C 6.3 (H) 03/11/2023 04:13 AM HGBA1C 6.8 (H) 07/09/2020 03:09 PM Thanks, Jr Soto, Declan.Ph. Clinical Pharmacist [facility] [phone] ext [phone] 05/30/2023,9:30 AM documented in this encounter Plan of Treatment Upcoming Encounters Date Type Specialty Care Team Description 06/29/2023 Office Visit Pharmacy Pharmacist1, [facility] [address] [place] [address] 06/30/2023 Office Visit Urology Chris Aldridge Jr., MD [address] [place] [address] [place] [address] 08/27/2023 Appointment Radiology 09/28/2023 Office Visit Family Medicine Meaghan Wilson MD [address] [place] [address] Scheduled Procedures Name Priority Associated Diagnoses Date/Ti [...] D LEVEL ONCE IN A LIFETIME-USE SMARTSET# [id number] Completed 06/12/2022, 01/31/2019, 04/06/2018, Additional history exists [...] Advance Directives occurred with: Patient Care Teams Vault Clerk Relationship Specialty Start Date End Date Meaghan Wilson MD [address] [place] [address] PCP - General Family Medicine 06/11/21 documented as of this encounter
--- OUTSIDE RECORDS SUMMARY | 2023-07-17 07:46 | External Medical Summary | Summary of Care ---
Author Name Unknown Organization [facility] Address [address] [place] [address] Phone [phone] Care Team Providers Care Engineering Operator Name Role Phone Moreno العلي MD Primary Care Provider [phone] Reason for Visit * Reason Onset Date Comments Medication Management 06/10/2023 Encounter Details Date Type Department Care Team (Late st Contact Info) Description 06/10/2023 Telephone Family Practice [facility] [address] [facility] [place] [address] Moreno العلي MD [address] [place] [address] Medication Management Allergies Active Allergy Reactions Criticality Noted Date [...] as of this encounter (statuses as of 06/10/2023) Medications Medication Sig Dispensed Refills Start Date [...] goal of less than 7.0% ([facility]) Take by mouth 1 Tablet in [...] C, by GOLD 2017 classification ([facility]) INHALE 1 PUFF TWICE DAILY DIRECTED 180 Each 1 06/09/2023 Active documented as of this encounter (statuses as of 06/10/2023) Active Problems Problem Noted Date Diagnosed Date [...] as of this encounter (statuses as of 06/10/2023) Resolved Problems Problem Noted Date Diagnosed Date [...] as of this encounter (statuses as of 06/10/2023) Immunizations Name Administration Dates Next Due COVID-19 [...] = 0.6 oz pur e alcohol) rare Sex and Gender Information Value Date Recorded [...] encounter Miscellaneous Notes * Telephone Encounter - Carine Chinchilla LPN - 06/10/2023 4:25 PM EDT Called pharmacy, clarified that pt is not on the meds at the same time and has been on them for awhile. Severiano is not concerned about side effects. * Telephone Encounter - Margot Figueroa - 06/10/2023 1:45 PM EDT [facility] Clarification needed Message: "RX for Meclizine 12.5 MG tab, requested 06/09/23. Active RX for Cyclobenaprine 5 MG tab, filled 05/27/2023. Please clarify if current RX is meclizine 12.5MG tab or Cyclobenaprine 5 MG tab. Thank you (DUR)." documented in this encounter Plan of Treatment Upcoming Encounters Date Type Department Care Team (Late st Contact Info) Description 06/29/2023 11:00 AM EST Office Visit Pharmacy, [place] [address] [place] [address] Pharmacist1, [facility] [place] [address] [place] [phone] 06/30/2023 9:45 AM EST Office Visit Urology Santosh Marquez [address] [place] [address] [place] [address] Oly Pierson, Chris Monsalve MD [address] [place] [place] [phone] 08/27/2023 3:30 PM EST Appointment Radiology, [facility] [address] [place] [phone] 09/28/2023 11:40 AM EST Office Visit Family [facility] [address] [place] [address] Moreno العلي MD [address] [place] [address] Scheduled Procedures Name Priority Associated Diagnoses Date/Ti [...] D LEVEL ONCE IN A LIFETIME-USE SMARTSET# [id number] Completed 06/12/2022, 01/31/2019, 04/06/2018, Additional history exists [...] Advance Directives occurred with: Patient Care Teams Engineering Operator Relationship Specialty Start Date End Date Moreno العلي MD [address] [place] [address] PCP - General Family Medicine 06/11/21 documented as of this encounter
--- OUTSIDE RECORDS SUMMARY | 2023-07-17 07:46 | External Medical Summary | Summary of Care ---
Author Name Unknown Organization [facility] Address [address] [place] [address] Phone [phone] Care Team Providers Care Parking Lot Manager Name Role Phone Meaghan Wilson MD Primary Care Provider [phone] Reason for Visit * Reason Comments eRx-Medication Refill Encounter Details Date Type Department Care Team (Late st Contact Info) Description 06/08/2023 Refill Family Practice [facility] [address] [place] [address] Meaghan Wilson MD [address] [place] [phone] COPD, group C, by GOLD 2017 classification (HCC) Allergies Active Allergy Reactions Criticality Noted Date [...] as of this encounter (statuses as of 06/09/2023) Medications Medication Sig Dispensed Refills Start Date [...] DAILY DIRECTED 180 Each 1 3 Active Fluticasone-Salmete rol 250-50 MCG/ACT Inhalation Aerosol Powder Breath Activated (Advair Diskus)Indications: COPD, group C, by GOLD 2017 classification ([facility]) inhale 1 puff by mouth and INTO THE LUNGS twice a day 180 Each 1 3 06/09/20 23 Discontinued documented as of this encounter (statuses as of 06/09/2023) Active Problems Problem Noted Date Diagnosed Date [...] as of this encounter (statuses as of 06/09/2023) Resolved Problems Problem Noted Date Diagnosed Date [...] as of this encounter (statuses as of 06/09/2023) Immunizations Name Administration Dates Next Due COVID-19 [...] encounter Miscellaneous Notes * Telephone Encounter - Noni Garcia RPh - 06/09/2023 7:33 AM EDTSigned Prescriptions: Disp Refills Fluticasone-Salmeterol 250-50 MCG/ACT Inha*180 Ea*1 Sig: INHALE 1 PUFF TWICE DAILY DIRECTEDAuthorizing Provider: MEAGHAN WILSON User: NONI GARCIA documented in this encounter Plan of Treatment Upcoming Encounters Date Type Department Care Team (Late st Contact Info) Description 06/29/2023 11:00 AM EST Office Visit Pharmacy, [place] [address] [place] [address] Pharmacist1, [facility] [place] [address] [place] [phone] 06/30/2023 9:45 AM EST Office Visit Urology Santosh Marquez [address] [facility] [address] [place] [phone] Oly Pierson, Chris Monsalve MD [address] [place] [address] [place] [address] 08/27/2023 3:30 PM EST Appointment Radiology, [facility] [address] [place] [phone] 09/28/2023 11:40 AM EST Office Visit Family [facility] [address] [place] [address] Meaghan Wilson MD [address] [place] [address] Scheduled Procedures Name Priority Associated Diagnoses Date/Ti [...] FOR COPD 05/25/2024 05/25/2023 GFR 05/28/2024 05/28/2023, 09/2022, 03/11/2023, Additional history exists DTaP,Tdap,and Td Vaccines (3 - Td or Tdap) 02/24/2027 02/24/2017, 03/02/2008 Lipid Panel 03/11/2028 03/11/2023, 05/18, 03/08/2021, Additional history exists Colonoscopy 06/06/2031 06/06/2021 Colorectal Cancer Screening 06/06/2031 Hepatitis C Screening Completed 06/25/2016 Pneumococcal Vaccine: 65+ Years Completed 02/24/2017, 02/04/2016, 08/07/2005 Zoster Vaccines Completed 05/27/2020, 02/15, 07/30/2012 VITAMIN D LEVEL ONCE IN A LIFETIME-USE SMARTSET# [id number] Completed 06/12/2022, 01/31/2019, 04/06/2018, Additional history exists [...] as of this encounter Visit Diagnoses Diagnosis COPD, group C, by GOLD 2017 classification (HCC) documented in this encounter Advance Directives Latest [...] Advance Directives occurred with: Patient Care Teams Parking Lot Manager Relationship Specialty Start Date End Date Meaghan Wilson MD [address] [place] [address] PCP - General Family Medicine 06/11/21 documented as of this encounter
--- OUTSIDE RECORDS SUMMARY | 2023-07-17 07:46 | External Medical Summary | Summary of Care ---
Author Name Unknown Organization [facility] Address [address] [place] [address] Phone [phone] Care Team Providers Care Public Service Representative Name Role Phone Moreno العلي MD Primary Care Provider [phone] Reason for Visit * Reason Onset Date Comments Med Request 03/20/2023 Encounter Details Date Type Department Care Team (Late st Contact Info) Description 03/20/2023 Telephone Family Practice [facility] [address] [facility] [place] [address] Moreno العلي MD [address] [facility] [address] Med Request Allergies Active Allergy Reactions Criticality [...] as of this encounter (statuses as of 06/19/2023) Medications Medication Sig Dispensed Refills Start Date [...] A1c goal of less than 7.0% ([facility]) Take by mouth 1 Tablet in [...] Active Amitriptyline HCl 10 MG Oral Tablet (Elavil)Indication [...] Dizziness. 90 Tablet 1 3 023 Discontinued Ondansetron HCl 4 MG Oral Tablet (Zofran) TAKE 2 TABLETS EVERY 8 HOURS NEEDED FOR NAUSEA 90 Tablet 1 3 023 Discontinued Potassium Chloride ER 10 MEQ Oral Tablet Extended ReleaseIndications :Electrolyte and fluid disorder Take 1 Tablet by mouth in the morning and 1 Tablet before bedtime. 180 Tablet 1 3 023 Discontinued Fluticasone-Salmet deyanira 250-50 MCG/ACT Inhalation Aerosol Powder Breath Activated (Advair Diskus)Indications :COPD, group C, by GOLD 2017 classification ([facility]) inhale 1 puff by mouth and INTO THE LUNGS twice a day 180 Each 1 3 023 Discontinued Ciprofloxacin HCl 500 MG Oral Tablet (Cipro) Take 1 Tablet by mouth in the morning and 1 Tablet before bedtime. 16 Tablet 0 3 023 Discontinued oxyCODONE HCl 5 MG Oral Tablet (Oxy IR) Take 1 Tablet by mouth every 6 hours as needed for Pain, Severe. 20 Tablet 0 3 023 Discontinued(Kanchan medina) documented as of this encounter (statuses as of 06/19/2023) Active Problems Problem Noted Date Diagnosed Date [...] as of this encounter (statuses as of 06/19/2023) Resolved Problems Problem Noted Date Diagnosed Date [...] as of this encounter (statuses as of 06/19/2023) Immunizations Name Administration Dates Next Due COVID-19 [...] encounter Miscellaneous Notes * Telephone Encounter - Yanci Mcintosh LPN - 03/23/2023 9:36 AM EDT Pt has appt on 03/27/2023 to address * Telephone Encounter - Moreno العلي MD - 03/21/2023 1:11 PM EDT No. Would need SNF follow up if meds are changing, etc. Especially when the med is an opiate. * Telephone Encounter - Carine Chinchilla LPN - 03/20/2023 1:46 PM EDT Called pt, discharge rehab hosp was [facility] in [place]. Called rehab hosp, had to leave message with medical records. Asked if they could fax us rehab discharge note. I do see the 5mg on her med list, but pt is asking for the 10mg-325mg dose. Please advise, as this one is not on her current med list, only the 5mg. Pt states she is in pain, and the 5mg do not work. * Telephone Encounter - Dot Sahu PHARM Tech - 03/20/2023 1:37 PM EDT Pt said she just got out of rehab because she fell. Pt said she was taking oxycodone-acetaminophen 10-325 before she fell so she was requesting a refill. Pt said she is not taking oxycodone 5 mg. Pt is out of rx and said she is in a lot of pain. Patient requesting refills for oxycodone- acetaminophen 10-325 mg. Upon chart review, medication islisted as discontinued, with discontinuation reason as "refill". Please advise if you wish to continue this therapy for the patient. Thanks, Dot Sahu Lithographic Stripper [facility] 03/20/2023,1:38 PM documented in this encounter Plan of Treatment Upcoming Encounters Date Type Department Care Team (Late st Contact Info) Description 06/29/2023 11:00 AM EST Office Visit Pharmacy, [place] [address] [place] [phone] Pharmacist1, [facility] [place] [address] [place] [address] 06/30/2023 9:45 AM EST Office Visit Urology Santosh Marquez [address] [place] [address] [place] [address] Oly Pierson, Chris Monsalve MD [address] [place] [place] [address] 08/27/2023 3:30 PM EST Appointment Radiology, [address] [place] [address] 09/28/2023 11:40 AM EST Office Visit Family Practice [facility] [address] [place] [address] Moreno العلي MD [address] [place] [address] Scheduled Procedures Name Priority Associated Diagnoses Date/Ti [...] D LEVEL ONCE IN A LIFETIME-USE SMARTSET# [id number] Completed 06/12/2022, 01/31/2019, 04/06/2018, Additional history exists [...] Advance Directives occurred with: Patient Care Teams Public Service Representative Relationship Specialty Start Date End Date Moreno العلي MD [address] [facility] [place] [address] PCP - General Family Medicine 06/11/21 documented as of this encounter
--- OUTSIDE RECORDS SUMMARY | 2023-07-17 07:47 | External Medical Summary | Summary of Care ---
Author Name Unknown Organization [facility] Address [address] [place] [address] Phone [phone] Care Team Providers Care Sealer Sander Name Role Phone Moreno العلي MD Primary Care Provider [phone] Reason for Visit * Reason Comments Outpatient Testing Encounter Details Date Type Department Care Team Description 05/28/2023 Laboratory Laboratory, [facility] [address] [place] [phone] [facility], Lab [address] [place], [place] [phone] Kidney stone; Spinal stenosis of lumbar region [...] hemoglobin A1c goal of less than 7.0% ([facility]) Take by mouth 1 Tablet in [...] OPD, group C, by GOLD 2017 classification ([facility]) inhale 1 puff by mouth and [...] Team Description 06/29/2023 Office Visit Pharmacy Pharmacist1, [facility] [place] [address] [place] [phone] 06/30/2023 Office Visit Urology Oly Pierson, Chris Monsalve MD [address] [place] [address] [place] [address] 08/27/2023 Appointment Radiology 09/28/2023 Office Visit Family Medicine Moreno العلي MD [address] [place] [address] Pending Results Name Type Priority Associated Diagnoses Date /Time URORISK(R) DIAGNOSTIC PROFILE Lab Routine Kidney stone 05/28/2023 10:27 AM EDT PTH Lab Routine Kidney stone 05/28/2023 10:28 AM EDT BASIC METABOLIC PANEL Lab Routine Kidney stone 05/28/2023 10:28 AM EDT URIC ACID Lab Routine Kidney stone 05/28/2023 10:28 AM EDT Scheduled Procedures Name Priority Associated [...] D LEVEL ONCE IN A LIFETIME-USE SMARTSET# [id number] Completed 06/12/2022, 01/31/2019, 04/06/2018, Additional history exists [...] Advance Directives occurred with: Patient Care Teams Sealer Sander Relationship Specialty Start Date End Date Moreno العلي MD [address] [place] [address] PCP - General Family Medicine 06/11/21 documented as of this encounter
--- OUTSIDE RECORDS SUMMARY | 2023-07-17 07:47 | External Medical Summary ---
Author Name Unknown Address Unknown Organization K01:[facility] - [address] [place] [address] Laboratory Report Ordering Provider Test Date Status DAVID JEONG JR 05/28/2023 10:28:42 Final Discharge Order Observation Date Value Abnormality Reference (Units ) Status BUN 05/28/2023 10:28:42 17 6-20 (mg/dL) Final Creatinine 05/28/2023 10:28:42 1.1 Above high normal 0.5-1.0 (mg/dL) Final Glomerular filtration rate/1.73 sq M.predicted [Volume Rate/Area] in Serum, Plasma or Blood by Creatinine-based formula (CKD-EPI) 05/28/2023 10:28:42 52 Below low normal >=60 (mL/min) Final eGFR is calculated based on the CKD-EPI 2020 equation SODIUM 05/28/2023 10:28:42 140 135-146 (m mol/L) Final Potassium 05/28/2023 10:28:42 4.5 3.5-5.1 (m mol/L) Final Cl 05/28/2023 10:28:42 103 98-107 (mm ol/L) Final CO2 05/28/2023 10:28:42 27 22-32 (mmo l/L) Final Anion gap 05/28/2023 10:28:42 10 7-15 (mmol /L) Final Glucose 05/28/2023 10:28:42 71 70-120 (mg /dL) Final Calcium 05/28/2023 10:28:42 9.6 8.4-10.2 ( mg/dL) Final Performing Location [facility] [place] - [address] [place] [address]
--- OUTSIDE RECORDS SUMMARY | 2023-07-17 07:47 | External Medical Summary | Summary of Care ---
Author Name Unknown Organization [facility] Address [address] [place] [address] Phone [phone] Care Team Providers Care Counseling Center Manager Name Role Phone Moreno العلي MD Primary Care Provider [phone] Reason for Visit * Reason Onset Date Comments Letter Requests 05/15/2023 Encounter Details Date Type Department Care Team Description 05/15/2023 Telephone Pharmacy Call Center [address] [facility] [place] [address] Pharmacist1, [facility] [place] [address] [place] [address] Letter Requests Allergies Active Allergy Reactions Severity Noted Date [...] as of this encounter (statuses as of 05/19/2023) Medications Medication Sig Dispensed Refills Start Date [...] D3 50 MCG (2000 UT) Oral Capsule (Cholecalciferol)Ind ications:Vitamin D deficiency Take by mouth 1 Capsule in the morning. 90 Capsule 3 12/27/2021 Active Additional Information Patient not taking.Reported on 05/11/2023 Aspirin 81 MG Oral Tablet Delayed Release (Aspirin Low Dose)Indications:Dys lipidemia, goal LDL below 100,Type 2 diabetes mellitus with hemoglobin A1c goal of less than 7.0% ([facility]) Take by mouth 1 Tablet in [...] Solution (Proventil)Indicatio ns:COPD, severity to be determined ([facility]) inhale contents of 1 vial ( [...] the morning. 90 Tablet 3 09/10/2022 Active Baclofen 10 MG Oral Tablet (Lioresal) Take 1 Tablet by mouth in the morning and 1 Tablet before bedtime. 180 Tablet 3 09/10/2022 Active buPROPion HCl ER [...] MINUTES BEFORE BREAKFAST AND DINNER 180 Tablet 09/10/2022 Active rOPINIRole HCl 3 MG Oral Tablet TAKE 1 TABLET BY MOUTH AT BEDTIME. 1-3 HOURS BEFORE BEDTIME WITH FOOD FOR RESTLESS LEGS 90 Tablet 3 09/10/2022 Active Fluticasone-Salmeter ol 250-50 MCG/ACT Inhalation Aerosol Powder Breath Activated (Advair Diskus)Indications:C OPD, group C, by GOLD 2017 classification ([facility]) inhale 1 puff by mouth and [...] BEFORE BEDTIME 180 Tablet 1 04/22/2023 Active oxyCODONE HCl 10 MG Oral Tablet (Roxicodone)Indicati ons:Controlled substance agreement signed,Spinal stenosis of lumbar region without neurogenic claudication Take 1 Tablet by mouth every 4 hours as needed for Pain, Severe. 60 Tablet 0 05/05/2023 Active oxyCODONE-Acetaminop hen 5-325 MG Oral Tablet (Percocet) Take 1 Tablet by mouth every 4 hours as needed for Pain, Severe. 16 Tablet 0 05/11/2023 Active documented as of this encounter (statuses as of 05/19/2023) Active Problems Problem Noted Date Depression with [...] as of this encounter (statuses as of 05/19/2023) Resolved Problems Problem Noted Date Resolved Date [...] as of this encounter (statuses as of 05/19/2023) Immunizations Name Administration Dates Next Due COVID-19 [...] encounter Miscellaneous Notes * Telephone Encounter - DENILSON Alfonso - 05/18/2023 8:10 AM EDT Pt called stating the letter that was sent was not correct. Pt said she needs a letter that states it is necessary for her to go today. Pt can be reached at [phone]. Thanks, Dot Sahu [employer] Prepar[employer] [facility] 05/18/2023,8:11 AM * Telephone Encounter - Rolf Ortiz RPh - 05/15/2023 5:07 PM EDT Faxed 05/18 [facility] appointment notification to Call A Ride at * Telephone Encounter - DENILSON Marin - 05/15/2023 2:04 PM EDT [facility] front end specialist calling, pt dropped off there they r/s apt then called and said it had to be changed to between 10-12 for the ride to bring her. I did r/s but a fax has to be sen to call a ride priorto 8 on Thursday, and not until the day of. The fax is . It has to include location andtime of appt. And it urgent and cannot wait another 24hours. documented in this encounter Plan of Treatment Upcoming Encounters Date Type Specialty Care Team Description 05/25/2023 Hospital Encounter Surgery Chris Aldridge Jr., MD [address] [place] [address] [place] [address] 05/25/2023 Surgery Surgery Chris Aldridge Jr., MD [address] [place] [address] [place] [address] CYSTOURETHROSCOPY WITH FOREIGN BODY REMOVAL SIMPLE 05/25/2023 Office Visit Pharmacy Pharmacist1, [facility] [address] [place] [address] 08/27/2023 Appointment Radiology 09/28/2023 Office Visit Family Medicine Moreno العلي MD [address] [place] [address] Scheduled Procedures Name Priority Associated Diagnoses Date/Ti me CYSTOURETHROSCOPY WITH FOREI GN BODY REMOVAL SIMPLE Kidney stone 05/25/2023 7:40 AM EDT COLONOSCOPY FLEXIBLE PROXIMA L DIAGNOSTIC Recall Family [...] Additional history exists COVID-19 Vaccine ( - 2022- season) 2023 11/17/2020, 10/20/2020 HbA1c 09/11/2023 03/11/2023, 02/14, 08/21/2022, Additional history exists GFR 03/18/2024 03/18/2023, 02/15, 03/09/2023, Additional history exists Albumin/Creatinine Ratio 05/04/2024 023, 12/27/2021, 11/07/2020, Additional history exists O2 ASSESSMENT COMPLETED IN PAST YEAR FOR COPD 05/11/2024 05/11/2023 DTaP,Tdap,and Td Vaccines (3 - Td or Tdap) 02/24/2027 02/24/2017, 03/02/2008 Lipid Panel 03/11/2028 03/11/2023, 05/18, 03/08/2021, Additional history exists Colonoscopy 06/06/2031 06/06/2021 Colorectal Cancer Screening 06/06/2031 Hepatitis C Screening Completed 06/25/2016 Pneumococcal Vaccine: 65+ Years Completed 02/24/2017, 02/04/2016, 08/07/2005 Zoster Vaccines Completed 05/27/2020, 02/15, 07/30/2012 VITAMIN D LEVEL ONCE IN A LIFETIME-USE SMARTSET# [id number] Completed 06/12/2022, 01/31/2019, 04/06/2018, Additional history exists [...] Date Activated Date Inactivated Comments Full Code 03/02/2023 11:58 PM 03/09/2023 6:38 PM This order reflects the patients wishes and were consensually agreed upon. Question Answer Comments Discussion of Advance Directives occurred with: Patient Care Teams Counseling Center Manager Relationship Specialty Start Date End Date Moreno العلي MD [address] [place] [address] PCP - General Family Medicine 06/11/21 documented as of this encounter
--- OUTSIDE RECORDS SUMMARY | 2023-07-17 07:47 | External Medical Summary | Summary of Care ---
Author Name Unknown Organization [facility] Address [address] [place] [address] Phone [phone] Care Team Providers Care Head Of Digital Name Role Phone Moreno العلي MD Primary Care Provider [phone] Reason for Visit * Reason Comments Dosage Adjustment In Person (Anticoag Cl inic) Pain * Evaluate & Treat - Unlimited Visits (Within 30 days (routine)) - Pending Review Specialty Diagnoses / Procedures Referred By Erika zapata Referred To Contact Pharmacist / Pharmacy Diagnoses Spinal stenosis of lumbar region without neurogenic claudication Moreno العلي MD [address] [place] [address] Referral ID Status Reason Start Date Expiration Date Visits Requested Visits Authorized [id number] Pending Review Specialty Services Required 04/19/2023 99 99 Encounter Details Date Type Department Care Team Description 05/25/2023 Office Visit Pharmacy, [place] [address] [place] [phone] Pharmacist1, [facility] [place] [address] [place] [address] Spinal stenosis of lumbar region without neurogenic claudication*; Senile osteoporosis; Controlled substance agreement signed Allergies [...] as of this encounter (statuses as of 05/25/2023) Medications Medication Sig Dispensed Refills Start Date [...] hemoglobin A1c goal of less than 7.0% ([facility]) Take by mouth 1 Tablet in the [...] Solution (Proventil)Indicati ons:COPD, severity to be determined ([facility]) inhale contents of 1 vial [...] RESTLESS LEGS 90 Tablet 3 09/10/2022 Active Fluticasone-Salmete rol 250-50 MCG/ACT Inhalation Aerosol Powder Breath Activated (Advair Diskus)Indications: COPD, group C, by GOLD 2017 classification ([facility]) inhale 1 puff by mouth [...] Active oxyCODONE HCl 10 MG Oral Tablet (Roxicodone)Indicat ions:Controlled substance agreement signed,Spinal stenosis of lumbar region without neurogenic claudication Take 1 Tablet by mouth every 4 hours as needed for Pain, Severe. 60 Tablet 0 05/05/2023 Active oxyCODONE-Acetamino phen 5-325 MG Oral Tablet (Percocet) Take 1 Tablet by mouth every 4 hours as needed for Pain, Severe. 16 Tablet 0 05/11/2023 Active Cyclobenzaprine HCl 5 MG Oral Tablet (Flexeril) Take 1 Tablet by mouth in the morning and 1 Tablet at noon and 1 Tablet before bedtime. As needed for muscle spasms.. 270 Tablet 0 05/25/2023 Active Baclofen 10 MG Oral Tablet (Lioresal) Take 1 Tablet by mouth in the morning and 1 Tablet before bedtime. 180 Tablet 3 09/10/2022 05/25/20 23 Discontinu ed(Medicat ion/Dose Changed) documented as of this encounter (statuses as of 05/25/2023) Active Problems Problem Noted Date Depression with [...] as of this encounter (statuses as of 05/25/2023) Resolved Problems Problem Noted Date Resolved Date [...] as of this encounter (statuses as of 05/25/2023) Immunizations Name Administration Dates Next Due COVID-19 [...] of this encounter Progress Notes * Rolf Ortiz, [facility] - 05/25/2023 2:02 PM EDT Images from the original note were not included. Medication Therapy Disease Management Clinic - Chronic Pain Management Progress Note 05/25/2023 Anika Salvador, identified by name and date of , is a 72 year old female being seen for chronic pain management/education. Patient presents to pain MTM clinic for initial visit. Referring Physician: Moreno العلي MD Medication Use Agreement: New BONY completed today Patient's Pharmacy: [facility] CHIEF COMPLAINT: back pain with arthritis of knees HPI: Arthritis both knees "Really bad back", disc disease, constant pain, some days are better than others, can not stand forprolonged periods of time Recent fall, tripped over dog, increase pain, and increase Oxycodone use Limited income, unable to afford OTC medications at this time May be moving back to [place] area Pain described as: neuropathy in feet, back [...] (problem unlikely) Daily MME: 60 PDMP Reviewed (05/25/2023): Urine Toxicology Screens: 08/31/20, ordered today, complete at next visit Pill Count: not completed at visit, instructed to bring medications to visits Functional Goal: improve QOL Most recent answers to PEG-3 scale: [...] Opioids: fentanyl patch NSAIDS: hives Muscle relaxants: baclofen Antidepressants: Anticonvulsants: gabapentin (nausea) Other: Current Pain Medications: Oxycodone 10 mg 1 tablet Q4H PRN Amitriptyline 10 mg HS Baclofen 10 mg BID Bupropion, Ropinirole, Lorazepam (lf 02/2023, not taking) Creatinine Clearance: Serum creatinine: 1.4 mg/dL (H) 03/18/23421 Estimated creatinine clearance: 39.3 mL/min (A) Creatinine Results: Recent Labs Units 03/18/2342103/11/233 03/09/23 0455 CREATININE - [facility] mg/dL 1.4* 1.2* 1.2* Hepatic Function (ALT): Recent Labs Units 03/18/2342103/11/233 03/02/23 1754 ALT - [facility] U/L 11 [...] and neuropathy. Osteoporosis. History of kidney stones. correction opiate use and hyperalgesia. Adherence: Reviewed current regimen, patient is adherent to regimen. Reports recent fall due to tripping over dog, causing increased pain and increase in oxycodone use, last dose 1 week ago Treatment options: Rotate muscle relaxer, increase amitriptyline, add Lyrica. 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 Decreased kidney function Education provided: Reviewed BONY, ordered UDS (did not complete today due to transportation schedule, will complete at next visit). Discussed MOA, SE's, and expected outcomes of treatment options above, elected to rotate muscle relaxer. . I have evaluated the patient for the appropriateness and necessity of opioid pain medications. Patient has been educated towards the benefits and risks of opioid medications, including dependence, addiction, and overdose. Patient is aware of the requirements set out in the medication use agreement,including the need for routine urine drug screening. No red flags for abuse or misuse have been exhibited. PLAN: STOP Baclofen Start Flexeril 5 mg TID PRN Medication changes: yes, see below Pain Medications: STOP Oxycodone 10 mg 1 tablet Q4H PRN START Oxycodone/APAP 10 mg/325 mg 1 tab Q4H PRN Amitriptyline 10 mg HS STOP Baclofen 10 mg BID START Flexeril 5 mg TID PRN Bupropion, Ropinirole, Lorazepam (lf 02/2023, reports not taking) Patient verbalized understanding of the plan. Contact clinic with any issues. FOLLOW UP: Return to clinic in 4 weeks 06/29/2023 Rolf Ortiz RPh Clinical Pharmacist - Hospitality Recruiter Medication Therapy Management Clinic 05/25/2023, 2:02 PM documented in this encounter Plan of Treatment Upcoming Encounters Date Type Specialty Care Team Description 06/29/2023 Office Visit Pharmacy Pharmacist1, [facility] [address] [place] [address] 06/30/2023 Office Visit Urology Chris Aldridge Jr., MD [address] [place] [address] [place] [address] 08/27/2023 Appointment Radiology 09/28/2023 Office Visit Family Medicine Moreno العلي MD [address] [facility] [place] [address] Scheduled Orders Name Type Priority Associated Diagnoses Orde r Schedule PAIN MANAGEMENT DRUG PANEL, URINE W/ INTERPRETATION Lab Routine Spinal stenosis of lumbar region without neurogenic claudication Senile osteoporosis Controlled substance agreement signed Expected: 05/25/2023 (Approximate), Expires: 05/25/2024 Scheduled Procedures Name Priority Associated Diagnoses Date/Ti me CYSTOURETHROSCOPY WITH FOREI GN BODY REMOVAL SIMPLE Kidney stone 05/25/2023 10:00 AM EDT COLONOSCOPY FLEXIBLE PROXIMA L DIAGNOSTIC [...] D LEVEL ONCE IN A LIFETIME-USE SMARTSET# [id number] Completed 06/12/2022, 01/31/2019, 04/06/2018, Additional history exists [...] Advance Directives occurred with: Patient Care Teams Head Of Digital Relationship Specialty Start Date End Date Moreno العلي MD [address] [place] [address] PCP - General Family Medicine 06/11/21 documented as of this encounter
--- OUTSIDE RECORDS SUMMARY | 2023-07-17 07:47 | External Medical Summary ---
Author Name Unknown Address Unknown Organization K01:[facility] [address] [facility] [place] [address] Laboratory Report Ordering Provider Test Date Status STEVE HARDING 05/28/2023 10:59:16 Final Drugs that require complianc e testing:

Opioids:
Oxycodone: Quantity unknown Date/Time of last Dose unknown

Benzodiazepines
Lorazepam: Quantity unknown Date/Time of last Dose unknown

Cutoff Concentrations:
Drug Level
Alpha-Hydroxyalprazolam 10 ng/mL
7- Aminoclonazepam 20 ng/mL
Nordiazepam 20 ng/mL
Oxazepam 20 ng/mL
Temazepam 20 ng/mL
Lorazepam 10 ng/mL

This test was developed and its performance characteristics determined by [facility]. It has not been cleared or approved by the [place] Food and Drug Administration. Observation Date Value Abnormality Reference (Units ) Status METHODOLOGY 05/28/2023 10:59:16 LC-MS/MS Final Alpha hydroxyalprazolam cutoff [Mass/volume] in Urine for Confirmatory method 05/28/2023 10:59:16 Negative Negative Final 7-Aminoclonazepam [Mass/volume] in Urine by Confirmatory method 05/28/2023 10:59:16 Negative Negative Final Nordiazepam cutoff [Mass/volume] in Urine for Confirmatory method 05/28/2023 10:59:16 Negative Negative Final Oxazepam cutoff [Mass/volume] in Urine for Confirmatory method 05/28/2023 10:59:16 Negative Negative Final Temazepam cutoff [Mass/volume] in Urine for Confirmatory method 05/28/2023 10:59:16 Negative Negative Final LORazepam cutoff [Mass/volume] in Urine for Confirmatory method 05/28/2023 10:59:16 Negative Negative Final Performing Location [facility] [address] [facility] [address]
--- OUTSIDE RECORDS SUMMARY | 2023-07-17 07:47 | External Medical Summary ---
Author Name Unknown Address Unknown Organization : Laboratory Report Ordering Provider Test Date Status DAVID JEONG 05/28/2023 10:27:45 Final Discharge Order Observation Date Value Abnormality Reference (Units ) Status TOTAL URINE VOLUME 05/28/2023 10:27:45 1.80 Below low normal >2.00 (L/day) Final This test was developed and its analytical performance
characteristics have been determined by [facility]. It has not been cleared or approved by the
FDA. This assay has been validated pursuant to the CLIA
regulations and is used for clinical purposes. PH URINE 05/28/2023 10:27:45 6.8 5.5-7.0 Final CALCIUM, 24 HOUR URINE 05/28/2023 10:27:45 59 <250.0 (mg/day) Final This test was developed and its analytical performance
characteristics have been determined by [facility]. It has not been cleared or approved by the
FDA. This assay has been validated pursuant to the CLIA
regulations and is used for clinical purposes. OXALATE, 24 HOUR URINE 05/28/2023 10:27:45 26 <45 (mg/day) Final This test was developed and its analytical performance
characteristics have been determined by [facility]. It has not been cleared or approved by the
FDA. This assay has been validated pursuant to the CLIA
regulations and is used for clinical purposes. URIC ACID, 24 HOUR URINE 05/28/2023 10:27:45 574 <700 (mg/day) Final This test was developed and its analytical performance
characteristics have been determined by [facility]. It has not been cleared or approved by the
FDA. This assay has been validated pursuant to the CLIA
regulations and is used for clinical purposes. CITRIC ACID, 24 HOUR URINE 05/28/2023 10:27:45 350 >320 (mg/day) Final This test was developed and its analytical performance
characteristics have been determined by [facility]. It has not been cleared or approved by the
FDA. This assay has been validated pursuant to the CLIA
regulations and is used for clinical purposes. SODIUM, 24 HOUR URINE 05/28/2023 10:27:45 212 Above hi gh normal <200 (mEq/day) Final This test was developed and its analytical performance
characteristics have been determined by [facility]. It has not been cleared or approved by the
FDA. This assay has been validated pursuant to the CLIA
regulations and is used for clinical purposes. SULFATE, 24 HOUR URINE 05/28/2023 10:27:45 5 <30 (mmol/day) Final This test was developed and its analytical performance
characteristics have been determined by [facility]. It has not been cleared or approved by the
FDA. This assay has been validated pursuant to the CLIA
regulations and is used for clinical purposes. PHOSPHORUS, 24 HOUR URINE 05/28/2023 10:27:45 713 <1100 (mg/day) Final This test was developed and its analytical performance
characteristics have been determined by [facility]. It has not been cleared or approved by the
FDA. This assay has been validated pursuant to the CLIA
regulations and is used for clinical purposes. MAGNESIUM, 24 HOUR URINE 05/28/2023 10:27:45 38 Below low normal >60.0 (mg/day) Final This test was developed and its analytical performance
characteristics have been determined by [facility]. It has not been cleared or approved by the
FDA. This assay has been validated pursuant to the CLIA
regulations and is used for clinical purposes. POTASSIUM, 24 HOUR URINE 05/28/2023 10:27:45 63 19-135 (mEq/day) Final This test was developed and its analytical performance
characteristics have been determined by [facility]. It has not been cleared or approved by the
FDA. This assay has been validated pursuant to the CLIA
regulations and is used for clinical purposes. CREATININE, 24 HOUR URINE 05/28/2023 10:27:45 980 805-2210 (mg/day) Final This test was developed and its analytical performance
characteristics have been determined by [facility]. It has not been cleared or approved by the
FDA. This assay has been validated pursuant to the CLIA
regulations and is used for clinical purposes. CALCIUM OXALATE 05/28/2023 10:27:45 0.45 <2.0 0 Final BRUSHITE 05/28/2023 10:27:45 0.79 <2.00 Final SODIUM URATE 05/28/2023 10:27:45 3.14 Above high normal <2.00 Final URIC ACID 05/28/2023 10:27:45 0.25 <2.00 Final THE PATIENT HAS: 05/28/2023 10:27:45 SEE BELOW Final Low urine volume
High u rinary sodium SUPERSATURATION INDEX: 05/28/2023 10:27:45 SEE BELOW Final Monosodium urate SUSPECTED PROBLEM IS: 05/28/2023 10:27:45 DNR Final COMMENTS 05/28/2023 10:27:45 DNR Final Test performed by [facility]
[id number] [facility] [place] [address]

Car Escort: FILOMENA ROSS M.D.
[facility],
[facility],
[address] [place], [place]
Wero Velazquez M.D., Ph.D., Director of Laboratories
, [place] [id number] Performing Location
--- OUTSIDE RECORDS SUMMARY | 2023-07-17 07:47 | External Medical Summary ---
Author Name Unknown Address Unknown Organization : Laboratory Report Ordering Provider Test Date Status DAVID JEONG JR 05/25/2023 09:32:31 Final Observation Date Value Abnormality Reference (Units ) Status Glucose Point of Care 05/25/2023 09:32:31 106 70-120 (mg/dL) Final Performing Location
--- OUTSIDE RECORDS SUMMARY | 2023-07-17 07:47 | External Medical Summary | Summary of Care ---
Author Name Unknown Organization [facility] Address [address] [place] [address] Phone [phone] Care Team Providers Care Weaver Apprentice Name Role Phone Moreno العلي MD Primary Care Provider [phone] Reason for Visit * Reason Comments Dosage Adjustment In Person (Anticoag Cl inic) Pain * Evaluate & Treat - Unlimited Visits (Within 30 days (routine)) - Pending Review Specialty Diagnoses / Procedures Referred By Erika zapata Referred To Contact Pharmacist / Pharmacy Diagnoses Spinal stenosis of lumbar region without neurogenic claudication Moreno العلي MD [address] [place] [address] Referral ID Status Reason Start Date Expiration Date Visits Requested Visits Authorized [id number] Pending Review Specialty Services Required 04/19/2023 99 99 Encounter Details Date Type Department Care Team Description 05/25/2023 Office Visit Pharmacy, [place] [address] [place] [phone] Pharmacist1, [facility] [place] [address] [place] [id number] Spinal stenosis of lumbar region without neurogenic [...] as of this encounter (statuses as of 05/26/2023) Medications Medication Sig Dispensed Refills Start Date [...] Solution (Proventil)Indicati ons:COPD, severity to be determined ([facility]) inhale contents of 1 vial ( 3 [...] COPD, group C, by GOLD 2017 classification ([facility]) inhale 1 puff by mouth [...] as of this encounter (statuses as of 05/26/2023) Active Problems Problem Noted Date Depression with [...] as of this encounter (statuses as of 05/26/2023) Resolved Problems Problem Noted Date Resolved Date [...] as of this encounter (statuses as of 05/26/2023) Immunizations Name Administration Dates Next Due COVID-19 [...] this encounter Progress Notes * Rolf Ortiz, [facility] - 05/25/2023 2:02 PM EDT Images from [...] this time May be moving back to [place] area Pain described as: neuropathy in feet, [...] and neuropathy. Osteoporosis. History of kidney stones. residential opiate use and hyperalgesia. Adherence: Reviewed current regimen, patient is adherent to regimen. Reports recent fall due to tripping over dog, causing increased pain and increase in oxycodone use, last dose 1 week ago Treatment options: Rotate muscle relaxer, increase amitriptyline, add Lyrica. Change oxycodone to oxycodone/APAP Treatment concerns: On multiple agents that can cause STONE ROUGHER depression and increased risk of falls. Decreased [...] requirements set out in the medication use agreement, including the need for routine urine drug screening. [...] 06/29/2023 Rolf Ortiz RPh Clinical Pharmacist - [facility] [employer] [facility] 05/25/2023, 2:02 PM documented in this encounter Plan of Treatment Upcoming Encounters Date Type Specialty Care Team Description 06/29/2023 Office Visit Pharmacy Pharmacist1, [facility] [address] [place] [address] 06/30/2023 Office Visit Urology Chris Aldridge Jr., MD [address] [place] [address] [place] [address] 08/27/2023 Appointment Radiology 09/28/2023 Office Visit Family Medicine Moreno العلي MD [address] [facility] [place] [address] Scheduled Orders Name Type Priority Associated Diagnoses [...] D LEVEL ONCE IN A LIFETIME-USE SMARTSET# 13270 Completed 06/12/2022, 01/31/2019, 04/06/2018, Additional history exists [...] Advance Directives occurred with: Patient Care Teams Weaver Apprentice Relationship Specialty Start Date End Date Moreno العلي MD [address] [place] [address] PCP - General Family Medicine 06/11/21 documented as of this encounter
--- OUTSIDE RECORDS SUMMARY | 2023-07-17 07:47 | External Medical Summary | Summary of Care ---
Author Name Unknown Organization [facility] Address [address] [place] [address] Phone [phone] Care Team Providers Care Relief Salesperson Name Role Phone Moreno العلي MD Primary Care Provider [phone] Reason for Visit * Reason Onset Date Comments medication change 05/26/2023 Encounter Details Date Type Department Care Team Description 05/26/2023 Telephone Pharmacy, [place] [address] [place] [address] Rolf Ortiz, [facility] [address] [place] [phone] medication change Allergies Active Allergy Reactions Severity Noted Date [...] hemoglobin A1c goal of less than 7.0% ([facility]) Take by mouth 1 Tablet [...] COPD, group C, by GOLD 2017 classification ([facility]) inhale 1 puff by mouth [...] muscle spasms.. 270 Tablet 0 05/25/2023 Active oxyCODONE-Acetamino phen 10-325 MG Oral TabletIndications:C ontrolled substance agreement signed,Spinal stenosis of lumbar region without neurogenic claudication Take 1 Tablet by mouth every 6 hours as needed for Severe Pain, (MUST LAST 30 DAYS). 70 Tablet 0 05/26/2023 Active oxyCODONE HCl 10 MG Oral Tablet (Roxicodone)Indicat ions:Controlled substance agreement signed,Spinal stenosis of lumbar region without neurogenic claudication Take 1 Tablet by mouth every 4 hours as needed for Pain, Severe. 60 Tablet 0 05/05/2023 05/26/20 Discontinu ed(Medicat ion/Dose Changed) oxyCODONE-Acetamino phen 5-325 MG Oral Tablet (Percocet) Take 1 Tablet by mouth every 4 hours as needed for Pain, Severe. 16 Tablet 0 05/11/2023 05/26/20 Discontinu ed(Medicat ion/Dose Changed) documented as of [...] Morbid obesity with BMI of 40.0-44.9, adult 1002/201912/27/2021 Nonrheumatic aortic valve stenosis 11/25/2018 06/11/2021 Body [...] Telephone Encounter - Rolf Ortiz RPh - 05/26/2023 4:40 PM EDT Saw patient in [facility], updated BONY reviewed and signed. Patient currently on oxycodone 10mg tab q4h asneeded (last filled #60 05/06). Recommend switching to oxycodone/acetaminophen 10mg/325mg tablet q6has needed for severe pain "must last 30 days", #70. Next [facility] appointment 06/29. Rx pended for review. Thanks, Rolf Ortiz, PharmD Clinical Pharmacist [facility] 05/26/2023 4:57 PM documented in this encounter Plan of Treatment Upcoming Encounters Date Type Specialty Care Team Description 06/29/2023 Office Visit Pharmacy Pharmacist1, [facility] [address] [place] [phone] 06/30/2023 Office Visit Urology Chris Aldridge Jr., MD [address] [place] [address] [place] [address] 08/27/2023 Appointment Radiology 09/28/2023 Office Visit Family Medicine Moreno العلي MD [address] [place] [address] Scheduled Procedures Name Priority Associated Diagnoses Date/Ti [...] 05/18, 02/13/2017, Additional history exists COVID-19 Vaccine (2022- season) 2023 11/17/2020, 10/20/2020 HbA1c 09/11/2023 03/11/2023, [...] D LEVEL ONCE IN A LIFETIME-USE SMARTSET# [id number] Completed 06/12/2022, 01/31/2019, 04/06/2018, Additional history exists [...] encounter Visit Diagnoses Diagnosis Controlled substance agreement signed- Primary Encounter for long-term (current) use of other [...] Advance Directives occurred with: Patient Care Teams Relief Salesperson Relationship Specialty Start Date End Date Moreno العلي MD [address] [place] [address] PCP - General Family Medicine 06/11/21 documented as of this encounter
--- OUTSIDE RECORDS SUMMARY | 2023-07-17 07:47 | External Medical Summary | Summary of Care ---
Author Name Unknown Organization [facility] Address [address] [place] [address] Phone [phone] Care Team Providers Care Novelties Sales Representative Name Role Phone Moreno العلي MD Primary Care Provider [phone] Reason for Visit * Reason Onset Date Comments Letter Requests 05/15/2023 Encounter Details Date Type Department Care Team Description 05/15/2023 Telephone Pharmacy Call Center [address] [facility] [place] [address] Pharmacist1, [facility] [place] [address] [place] [address] Letter Requests Allergies Active [...] as of this encounter (statuses as of 05/22/2023) Medications Medication Sig Dispensed Refills Start Date [...] severity to be determined ([facility]) inhale contents of 1 vial ( [...] 2017 classification ([facility]) inhale 1 puff by mouth and [...] as of this encounter (statuses as of 05/22/2023) Active Problems Problem Noted Date Depression with [...] as of this encounter (statuses as of 05/22/2023) Resolved Problems Problem Noted Date Resolved Date [...] as of this encounter (statuses as of 05/22/2023) Immunizations Name Administration Dates Next Due COVID-19 [...] Telephone Encounter - Rolf Ortiz RPh - 05/22/2023 4:13 PM EDT Patient Phone Numbers Returned patient's call to [facility] regarding requested documentation for transportation for appointment 05/25. Left message and toll free number requesting returned phone call. Rolf Ortiz PharmD Clinical Pharmacist [facility] 05/22/2023 4:15 PM * Telephone Encounter - DENILSON Alfonso - 05/18/2023 8:10 AM EDT Pt called stating the letter that was sent was not correct. Pt said she needs a letter that states it is necessary for her to go today. Pt can be reached at [phone]. Thanks, Dot Sahu [employer] Consultant [facility] 05/18/2023,8:11 AM * Telephone Encounter - Rolf Ortiz RPh - 05/15/2023 5:07 PM EDT Faxed 05/18 [facility] appointment notification to [facility] A Ride at * Telephone Encounter - DENILSON Marin - 05/15/2023 2:04 PM EDT [facility] front desk team member calling, pt dropped off there they r/s [...] Surgery Chris Aldridge Jr., MD [address] [place] [address] 05/25/2023 Surgery Surgery Chris Aldridge Jr., MD [address] [place] [address] CYSTOURETHROSCOPY WITH FOREIGN BODY REMOVAL SIMPLE 05/25/2023 Office Visit Pharmacy Pharmacist1, [facility] [address] [address] 08/27/2023 Appointment Radiology 09/28/2023 Office Visit Family Medicine Moreno العلي MD [address] [place] [address] Scheduled Procedures Name Priority Associated Diagnoses Date/Ti me CYSTOURETHROSCOPY WITH FOREI GN BODY REMOVAL SIMPLE Kidney stone 05/25/2023 10:12 AM EDT COLONOSCOPY FLEXIBLE PROXIMA L DIAGNOSTIC [...] D LEVEL ONCE IN A LIFETIME-USE SMARTSET# [id number] Completed 06/12/2022, 01/31/2019, 04/06/2018, Additional history exists [...] Advance Directives occurred with: Patient Care Teams Novelties Sales Representative Relationship Specialty Start Date End Date Moreno العلي MD [address] [place] [address] PCP - General Family Medicine 06/11/21 documented as of this encounter
--- OUTSIDE RECORDS SUMMARY | 2023-07-17 07:47 | External Medical Summary ---
Author Name Unknown Address Unknown Organization [id number][place] [place] [address] [place] [address] Laboratory Report Ordering Provider Test Date Status DAVID JEONG JR 05/28/2023 10:28:42 Final Discharge Order Observation Date Value Abnormality Reference (Units ) Status Parathyrin.intact [Mass/volume] in Serum or Plasma 05/28/2023 10:28:42 57 15-65 (pg/mL) Final Performing Location [facility] [place] [address] [place] [address]
--- OUTSIDE RECORDS SUMMARY | 2023-07-17 07:47 | External Medical Summary ---
Author Name Unknown Address Unknown Organization K01:[facility] [place] - [address] [place] [address] Laboratory Report Ordering Provider Test Date Status DAVID EJONG JR 05/28/2023 10:28:42 Final Discharge Order Observation Date Value Abnormality Reference (Units ) Status Uric Acid 05/28/2023 10:28:42 6.2 Above high normal 2. 4-5.7 (mg/dL) Final Performing Location [facility] [place] - [address] [place] [address]
--- OUTSIDE RECORDS SUMMARY | 2023-07-17 07:47 | External Medical Summary ---
Author Name Unknown Address Unknown Organization K01:[facility] - [address] [facility] [place] [address] Laboratory Report Ordering Provider Test Date Status STEVE HARDING 05/28/2023 10:59:16 Final Drugs that require complianc e testing:

Opioids:
Oxycodone: Quantity unknown Date/Time of last Dose unknown

Benzodiazepines
Lorazepam: Quantity unknown Date/Time of last Dose unknown

Cutoff Concentrations:
Drug Level
Amphetamines 500 ng/mL
Benzodiazepines 100 ng/mL
Cannabinoids 50 ng/mL
Cocaine Metabolite 150 ng/mL
Fentanyl 1 ng/mL
Hydrocodone / Hydromorphone 300 ng/mL
Methadone Metabolite 100 ng/mL
Morphine / Codeine 300 ng/mL
Oxycodone / Oxymorphone 100 ng/mL

Screening results are presumptive and can only be used for medical purposes. Confirmatory testing is available upon request. Observation Date Value Abnormality Reference (Units) Status COMPLIANCE INTERPRETATION 05/28/2023 10:59:16 Based on the medication information provided: Final COMPLIANCE INTERPRETATION 05/28/2023 10:59:16 The absence of oxycodone and oxymorphone indicates no recent oxycodone use prior to urine drug testing. Final COMPLIANCE INTERPRETATION 05/28/2023 10:59:16 The absence of lorazepam indicates no recent lorazepam use prior to urine drug testing. Final Changed Report: Previously r eported on 05/29/2023 at 1054 EDT. See Results History in EPIC for previous versions of the report. Amphetamines, Urine screen 05/28/2023 10:59:16 Negative Negative Final Benzodiazepines, Urine screen 05/28/2023 10:59:16 Refer to confirmation results Abnormal Negative Final Cannabinoids, Urine screen 05/28/2023 10:59:16 Negative Negative Final Cocaine Metabolite, Urine screen 05/28/2023 10:59:16 Negative Negative Final fentaNYL [Presence] in Urine by Screen method 05/28/2023 10:59:16 Negative Negative Final HYDROcodone [Presence] in Urine by Screen method 05/28/2023 10:59:16 Negative Negative Final 8-Crusoxqhro-6,5-Dimeth yl-3,3-Diphenylpyrrolid ine (EDDP) [Presence] in Urine 05/28/2023 10:59:16 Negative Negative Final Opiates, Urine screen 05/28/2023 10:59:16 Negative Negative Final oxyCODONE [Presence] in Urine by Screen method 05/28/2023 10:59:16 Refer to confirmation results Abnormal Negative Final FORENSIC VALID INTERPRETATION 05/28/2023 10:59:16 Normal Final Creatinine, Urine 05/28/2023 10:59:16 68 (mg/dL) Final Performing Location [facility] [place] - [facility] [address] [facility] [address]
--- OUTSIDE RECORDS SUMMARY | 2023-07-17 07:47 | External Medical Summary | Summary of Care ---
Author Name Unknown Organization [facility] Address [address] [place] [address] Phone [phone] Care Team Providers Care Hothouse Worker Name Role Phone Meaghan Wilson MD Primary Care Provider [phone] Reason for Visit * Auth/Cert Specialty Diagnoses / Procedures Referred By Erika t Referred To Contact Diagnoses Kidney stone Kidney stone [N20.0] Procedures CYSTOSCOPY/REMOVE OBJECT, SIMPLE CYSTOURETHROSCOPY WITH FOREIGN BODY REMOVAL SIMPLE Referral ID Status Reason Start Date Expiration Date Visits Re quested Visits Authorized [id number] Encounter Details Date Type Department Care Team Description 05/25/2023 Hospital Encounter OR [facility], Operating Room, Main [facility] - 4th Floor [address] [facility] [place] [address] Chris Aldridge Jr., MD [address] [facility] [place] [address] [place] [address] Allergies Active Allergy Reactions Severity Noted Date [...] hemoglobin A1c goal of less than 7.0% ([facility]) Take by mouth 1 Tablet in the [...] COPD, group C, by GOLD 2017 classification ([facility]) inhale 1 puff by mouth and INTO [...] Pain, Severe. 60 Tablet 0 05/05/2023 Active Baclofen 10 MG Oral Tablet (Lioresal) Take 1 Tablet by mouth in the morning and 1 Tablet before bedtime. 180 Tablet 3 09/10/2022 05/25/20 Discontinu ed(Medicat ion/Dose Changed) oxyCODONE HCl 10 MG Oral Tablet (Roxicodone)Indicat ions:Controlled substance agreement signed,Spinal stenosis of lumbar region without neurogenic claudication Take 1 Tablet by mouth every 4 hours as needed for Pain, Severe. 60 Tablet 0 04/07/2023 05/04/20 Discontinu ed(Refill) documented as of this encounter [...] on file documented as of this encounter Last Filed Vital Signs Vital Sign Reading Time Taken Comments Blood Pressure 122/69 05/25/2023 11:41 AM EDT Pulse 89 05/25/2023 11:41 AM EDT Temperature 36.3 C (97.3 F) 05/25/2023 11:41 AM E DT Respiratory Rate 20 05/25/2023 11:41 AM EDT Oxygen Saturation 96% 05/25/2023 11:41 AM EDT Inhaled Oxygen Concentration - - Weight 96.2 kg (212 lb) 05/25/2023 9:11 AM EDT Height 157.5 cm (5' 2") 05/25/2023 9:11 AM EDT Body Mass Index 38.78 05/25/2023 9:11 AM EDT documented in this encounter Functional Status Functional Status Response Date of Assess ment Do you have serious difficul ty walking or climbing stairs? (5 years old or older) No 03/04/2023 documented as of this encounter Discharge Instructions * Discharge Instr - AVS* Chris Aldridge Jr., MD - 05/25/2023 10:15 AM EDT Discharge Date: 05/25/2023 Check your Patient Education Brochure for further information. If you have any further questions call your physician at [phone]. The information below provides you with the instructions and the list of medications you need to betaking following discharge from the hospital. If you have any questions, please ask before leaving.Please carry this letter with you when you see your doctor in the clinic. If you have questions, you can reach us at the numbers above. Diet: Start with clear liquids (jello, tea, apple juice), avoid dairy products (milk, cheese, pudding, ice cream) and fried, greasy foods. Progress to prescribed diet as tolerated. If nausea should occur, have clear liquids only until soft foods can be tolerated. Activity: A responsible adult must be with the patient for 24 hours after surgery. Rest today and tomorrow, and then increase activity as tolerated. DO NOT drive, operate any appliances and/or machinery or sign legal documents for 24 hours. Control of Pain: Ibuprofen Warnings: Call your surgeon promptly in case of: A. Excessive bleeding B. Fever greater than 101 degrees F (38.3 degrees centigrade) C. Persistent nausea and vomiting D. Redness, swelling or pus-like drainage E. Pain that is not relieved by the medicine you were told to take F. Other start metabolic studies after discharge Special Instructions: A. Dressing change: Date you may return to work or school: Follow-up with your urologist in 1 month(s). documented in this encounter Progress Notes * Chris Aldridge Jr., MD - 05/25/2023 10:15 AM EDT [address] [address] OUTPATIENT SURGERY DISCHARGE SUMMARY NOTE Name: Anika Salvador Location: [facility]/[place] Date: 05/25/2023 Time: 10:15 AM Surgery Date: 05/25/2023 Procedure: Procedure(s): CYSTOURETHROSCOPY WITH FOREIGN BODY REMOVAL SIMPLE Left Surgeon: Surgeon(s): Chris Aldridge Jr., MD Discharge Diagnosis: stones After examination of this patient, I have determined she is ready for discharge to home when the patient meets criteria. Discharge instructions were given to the patient. documented in this encounter H&P Notes * Chris Aldridge Jr., MD - 05/25/2023 9:52 AM EDT Images from the original note were not included. H&P 05/25/23 From prior note H&P 05/11/23 H&P 05/11/23 [id number] PCP: MEAGHAN WILSON [address] [place] [address] [phone] Anika Salvador is a 72 year old female, who presents in referral for evaluation of left renal stones both near 1 cm post UTI and stent placement now needing definitive stone management. She is not an ideal candidate for ESWL with her large stone burden and UTI history. Kidney stones that obstruct theureter can be severely painful. There are options for management. Expectant management will allow stones to spontaneously pass. For stones under 6 mm this can be 80% of the time. Passage rates and pain control can be improved with the use of medications including alpha blockers. The time to passagecan vary. Uncontrollable pain or progressive obstruction without passage or infection is indications for intervention. Placing a ureteral stent can relieve the obstruction or drain an infection. ESWLis an external way of fracturing a stone in the ureter or kidney which fragments the stone into passable pieces 70% to 80% of the time. Ureteroscopy involves entering into the urinary tract with a scope and removing the stone or fracturing it with laser. It is more successful at over 90% but more invasive and usually requires a stent. More complicated or larger stones can be treated with percutaneous or laparoscopic procedures which would be referred to a tertiary center. Current Outpatient Medications Medication Sig Dispense Refill Elastic Bandages & Supports (KNEE BRACE/HINGED BARS LARGE) MISC Use for right knee instability 1 Each 0 Incontinence Supply Disposable (COMFORT SHIELD ADULT DIAPERS) MISC Adult large pull ups use 2 dailyand as needed. 72 Each 11 Iron (Ferrous Sulfate) 325 (65 Fe) MG Oral Tablet Take 1 Tab by mouth daily. BD Swab Single Use Regular Pad Use up to 3 times a day as directed Dx: E11.9 100 Each 5 True Metrix Level 1 Low In Vitro Solution Use up to 3 times a day as directed Dx: E11.9 1 Each 2 TRUEplus Lancets 33G Use up to 3 times a day as directed Dx: E11.9 100 Each 5 True Metrix Blood Glucose Test In Vitro Strip (Glucose Blood) Use up to 3 times a day as directed Dx: E11.9 100 Strip 5 True Metrix Meter w/Device Kit Use up to 3 times a day as directed Dx: E11.9 1 Kit 0 traZODone HCl 50 MG Oral Tablet (Desyrel) TAKE 1 TABLET BY MOUTH EVERYDAY AT BEDTIME (Patient taking differently: Take 1 Tablet by mouth at bedtime as needed for Sleep. TAKE 1 TABLET BY MOUTH EVERYDAY AT BEDTIME) 90 Tab 1 Nitroglycerin 0.4 MG Sublingual Tablet Sublingual (Nitrostat) ONE TAB UNDER TONGUE NEEDED FOR CHEST PAIN MAXIMUM 3 DOSES 50 Tablet 5 CVS D3 50 MCG (2000 UT) Oral Capsule (Cholecalciferol) Take by mouth 1 Capsule in the morning. 90 Capsule 3 Aspirin 81 MG Oral Tablet Delayed Release (Aspirin Low Dose) Take by mouth 1 Tablet in the morning.90 Tablet 3 LORazepam 0.5 MG Oral Tablet (Ativan) Take by mouth 1 Tablet every 8 hours as needed for Anxiety. 30 Tablet 0 Vitamin B-12 1000 MCG Oral Tablet Take by mouth 1 Tablet in the morning. 90 Tablet 0 Docusate Sodium 100 MG Oral Capsule (Colace) Take one capsule by mouth twice a day as needed for constipation. 180 Capsule 3 Ipratropium-Albuterol 20-100 MCG/ACT Inhalation Aerosol Solution (Combivent Respimat) inhale 1 puffby mouth four times a day 12 g 1 Albuterol Sulfate (2.5 MG/3ML) 0.083% Inhalation Nebulization Solution (Proventil) inhale contents of 1 vial ( 3 milliliters ) in nebulizer by mouth and INTO THE LUNGS every 4 hours if needed Strength: (2.5 MG/3ML) 0.083% 225 mL 3 Furosemide 20 MG Oral Tablet (Lasix) Take 1 Tablet by mouth in the morning. 90 Tablet 3 Atorvastatin Calcium 40 MG Oral Tablet (Lipitor) Take 1 Tablet by mouth in the morning. 90 Tablet 3 Baclofen 10 MG Oral Tablet (Lioresal) Take 1 Tablet by mouth in the morning and 1 Tablet before bedtime. 180 Tablet 3 buPROPion HCl ER (XL) 150 MG Oral Tablet Extended Release 24 Hour (Wellbutrin XL) Take 1 Tablet by mouth in the morning. 90 Tablet 3 Losartan Potassium 50 MG Oral Tablet (Cozaar) Take 1.5 Tablets by mouth in the morning. 135 Tablet 3 Montelukast Sodium 10 MG Oral Tablet (Singulair) Take 1 Tablet by mouth in the morning. 90 Tablet 3 Alendronate Sodium 70 MG Oral Tablet (Fosamax) 1 tablet weekly 12 Tablet 3 Amitriptyline HCl 10 MG Oral Tablet (Elavil) take 1 tablet by mouth at bedtime 90 Tablet 3 Pantoprazole Sodium 40 MG Oral Tablet Delayed Release (Protonix) TAKE 1 TABLET TWICE DAILY 30 MINUTES BEFORE BREAKFAST AND DINNER 180 Tablet 3 rOPINIRole HCl 3 MG Oral Tablet TAKE 1 TABLET BY MOUTH AT BEDTIME. 1-3 HOURS BEFORE BEDTIME WITH FOOD FOR RESTLESS LEGS 90 Tablet 3 Potassium Chloride ER 10 MEQ Oral Tablet Extended Release Take 1 Tablet by mouth in the morning and1 Tablet before bedtime. 180 Tablet 1 Fluticasone-Salmeterol 250-50 MCG/ACT Inhalation Aerosol Powder Breath Activated (Advair Diskus) inhale 1 puff by mouth and INTO THE LUNGS twice a day 180 Each 1 Spiriva HandiHaler 18 MCG Inhalation Capsule (tiotropium bromide) INHALE THE CONTENTS OF 1 CAPSULE EVERY DAY 90 Capsule 3 glipiZIDE ER 5 MG Oral Tablet Extended Release 24 Hour (Glucotrol XL) TAKE 1 TABLET ONE TIME DAILY 30 MINUTES BEFORE A MEAL 90 Tablet 1 oxyCODONE HCl 10 MG Oral Tablet (Roxicodone) Take 1 Tablet by mouth every 4 hours as needed for Pain, Severe. 60 Tablet 0 Ondansetron HCl 4 MG Oral Tablet (Zofran) TAKE 2 TABLETS EVERY 8 HOURS NEEDED FOR NAUSEA 90 Tablet 1 Meclizine HCl 12.5 MG Oral Tablet (Antivert) TAKE 1 TABLET THREE TIMES DAILY NEEDED FOR DIZZINESS 90 Tablet 1 No current facility-administered medications for this visit. Review of patient's allergies indicates: Allergen Reactions Metformin Nausea/vomiting Nsaids Prednisone ? Hives Worries about blood sugar elevation Sulfa Antibiotics hives Tramadol Other (Please comment) Urine retention Social History: Social History Tobacco Use Smoking status: Former Packs/day: 0.25 Years: 48.00 Pack years: 12.00 Types: Cigarettes Quit date: 05/19/2014 Years since quittin.9 Smokeless tobacco: Never Substance Use Topics Alcohol use: Yes Comment: rare Vaping/E-Cigarette Use Vaping/E-Cigarette Use Never User Vaping/E-Cigarette Substances Vaping/E-Cigarette Devices Past Surgical History: Procedure Laterality Date CATARACT SURGERY,COMPLEX 08/28/2009 left eye COLONOSCOPY, DIAGNOSTIC (RECTUM) 06/06/2021 poor prep, repeat / [facility] CYSTOSCOPY 02/22/2014 ull left with stent exchange CYSTOSCOPY/INSERTION OF STENT Left 03/03/2023 CYSTOURETHROSCOPY WITH INSERTION URETERAL STENT performed by Chris Aldridge Jr., MD at OR [facility] CYSTOSCOPY/REMOVE OBJECT, SIMPLE 03/20/2014 EGD, FLEXIBLE, DIAGNOSTIC 06/06/2021 normal bx / [facility] MISCELLANEOUS ORDER ([facility] ONLY) 03/16/2008 Right breast punch biopsy (benign) - Dr. Orozco REMOVAL OF TONSILS, AGE 12+ Tonsils Removal,12+ Y/O Patient Active Problem List Diagnosis Code Spinal stenosis of lumbar region without neurogenic claudication M48.061 Gastroesophageal reflux disease without esophagitis K21.9 Type 2 diabetes mellitus with hemoglobin A1c goal of less than 8.0% ([facility]) E11.9 Dyslipidemia E78.5 RLS (restless legs syndrome) G25.81 HTN, goal below 130/80 I10 Controlled substance agreement signed Z79.899 COPD, group C, by GOLD 2017 classification ([facility]) J44.9 Senile osteoporosis M81.0 Moderate aortic stenosis I35.0 Morbid obesity ([facility]) E66.01 Depression with anxiety F41.8 Past Surgical History: no changes Past Medical History: no changes Patient's Family History: no changes GENERAL EXAM: Alert and oriented x3 and no acute distress LUNGS: clear Heart: regular ABDOMEN: negative, Abdomen soft, non-tender. BS normal, No masses, organomegaly, hernia RECTAL EXAM: deferred. GENITAL EXAM: Deferred Impression/Plan: We are recommending a ureteroscopy. This is an outpatient procedure that requires anesthesia. We gain entrance to the urinary tract through the urethra and then in the bladder to thekidneys or ureter. We can perform lithotripsy and remove fragments of stone. It is very likely thatwe will place a ureteral stent for a week to allow for healing and the swelling to resolve. They usually have pain frequency and bleeding after this procedure for a week or two. Success rates are around 90%. There is a known risk of injury to the ureter with possible perforation or stricture. She reported a long history of seeing urologists in [place] for stones and may return to themfor treatment. We preformed the following surgery: [facility]-[address] [id number] OPERATIVE REPORT Name: Anika Salvador Date: 05/11/2023 Time: 8:54 AM Location: [facility] Service: Urology Date of Operation: 05/11/2023 Pre-op Diagnosis: left renal stones 11 mm, 7 mm retained stent Post-op Diagnosis: same Operation: left ureteroscopy laser lithotripsy of both stones with stone removal and stent exchange. Surgeon: Chris Aldridge Jr., MD Assistants: None Anesthesia: General LMA anesthesia Drains: left stent 6-26 Estimated Blood Loss: 5 ml. IV Fluids: 400 ml. Urine Output: N/A Specimens/Disposition: stone Apparent Intraoperative Complications: NONE Patient Condition: good Disposition: Post Anesthesia Care Unit Attestation: I performed the procedure Findings: 2 stones in the left kidney with a stent in good position able to fracture all of the stones into small pieces 2-3 mm or smaller and obtain 1 sample for analysis. Indications: This is a 72-year-old woman with a long history of kidney stones previously stented now coming in for removal of large stone 11 mm and 7 mm in the left kidney with a stent in place previously infected currently now noninfected. The general information alternatives and risks of the procedure were explained and understood in detail. Procedure: The patient was taken to the operating room and identified she her allergies were reviewed she had received an IV antibiotic her ipsilateral left hand had been marked we reviewed her filmsintraoperatively she had SCDs and then was put under general LMA anesthesia. We were able to begin with cystoscopy identifying a normal-appearing urethra the stent was seen in the left ureter we are able to grasp the stent and cannulate this through the stent and safety wire and remove the stent intact and disposed of it. We used a 25 cm 12 14 access sheath over the safety wire to gain access to the collecting system and then went in with a flexible digital scope. We identified the 2 stones both of them in the lower pole calyx and fair amount of debris in the area also. We were able to use the laser lithotripsy fiber at a setting of 12 hertz and 800 mJ and began breaking each of the 2 stones we continued to break the stones for quite a long period of time getting them into all smaller fragments and extract in 1 piece with a basket and then continuing to break the rest up. We are able toget all of the stones into small fragments that should be passable with the safety wire in place atall times. We are able to put a new stent over the safety wire in good position proximally and distally we will be getting that out in the OR in 2 weeks and we will be discussing stone analysis and stone prevention at that later date. 1 SEE BELOW Comment: Calcium Oxalate Dihydrate (Weddellite) 20% Calcium Oxalate Monohydrate (Whewellite) 80% She is now returning for stent removal. The general information alternatives and risks of this procedure were explained and understood in detail. documented in this encounter Nursing Notes * Catalina Thornton RN - 05/25/2023 10:31 AM EDT Right ureteral stent removed, intact, and discarded, per Dr. Aldridge. documented in this encounter OR Notes * OR Surgeon - Chris Aldridge Jr., MD - 05/25/2023 10:14 AM EDT [facility]-[address] [address] OPERATIVE REPORT Name: Anika Salvador Date: 05/25/2023 Time: 10:13 AM Location: [facility] Service: Urology Date of Operation: 05/25/2023 Pre-op Diagnosis: retained left stent Post-op Diagnosis: same Operation: cystoscopy left stent removal Surgeon: Chris Aldridge Jr., MD Assistants: None Anesthesia: Monitored Local Anesthesia with Sedation Drains: none Estimated Blood Loss: 0 ml. IV Fluids: 400 ml. Urine Output: N/A Specimens/Disposition: None Apparent Intraoperative Complications: NONE Patient Condition: good Disposition: Post Anesthesia Care Unit Attestation: I performed the procedure Indications: This is a woman with a recent ureteroscopy lithotripsy and stent placement of left-sided multiple calcium oxalate stones. She is now coming in for cystoscopy and stent removal and we arealso in the process of recommending metabolic studies for stone prevention with her history of recurrent stones. Findings: We identified a stent coming from the left ureteral orifice and a normal-appearing bladder grasped the stent and removed it intact and identified good flow of urine from that side post stent removal. Procedure: The patient was taken to the operating room and identified a surgical time-out was taken. We reviewed her allergies her ipsilateral left side was marked we had reviewed her films intraoperatively she received an IV antibiotic she had SCDs and all the appropriate personnel and equipment were available. We began with instillation of lidocaine jelly in the urethra and then went in with the cystoscope. The bladder appeared normal with a stent emanating from the left ureteral orifice we are able to identify the stent no other stones or tumors were noted in the bladder and an alligator forceps was used to grasp the stent and remove it intact. We observed a good flow of urine from that side post stent removal and she will be discharged to home later today I did order metabolic studiesincluding blood studies and 24 hour urine studies to be completed prior to her 1 month follow-up inthe office to discuss stone prevention. * Operative Report Brief - Chris Aldridge Jr., MD - 05/25/2023 10:13 AM EDT [facility]-[address] [address] OPERATIVE REPORT - BRIEF Name: Anika Salvador Date: 05/25/2023 Time: 10:13 AM Location: OR [facility] Service: Urology Date of Operation: 05/25/2023 Pre-op Diagnosis: retained left stent Post-op Diagnosis: same Operation: cystoscopy left stent removal Surgeon: Chris Aldridge Jr., MD Assistants: None Anesthesia: Monitored Local Anesthesia with Sedation Drains: none Estimated Blood Loss: 0 ml. IV Fluids: 400 ml. Urine Output: N/A Specimens/Disposition: None Apparent Intraoperative Complications: NONE Patient Condition: good Disposition: Post Anesthesia Care Unit Attestation: I performed the procedure documented in this encounter Plan of Treatment Upcoming Encounters Date Type Specialty Care Team Description 06/29/2023 Office Visit Pharmacy Pharmacist1, [facility] [address] [place] [address] 06/30/2023 Office Visit Urology Oly Pierson, Chris Monsalve MD [address] [place] [address] [place] [address] 08/27/2023 Appointment Radiology 09/28/2023 Office Visit Family Medicine Meaghan Wilson MD [address] [place] [address] Scheduled Orders Name Type Priority Associated Diagnoses Orde r Schedule URORISK(R) DIAGNOSTIC PROFILE Lab Routine Kidney stone Expected: 05/26/2023, Expires: 05/25/2024 PTH Lab Routine Kidney stone Expected: 05/26/2023, Expires: 05/25/2024 BASIC METABOLIC PANEL Lab Routine Kidney stone Expected: 05/26/2023, Expires: 05/25/2024 URIC ACID Lab Routine Kidney stone Expected: 05/26/2023, Expires: 05/25/2024 Scheduled Procedures Name Priority Associated [...] D LEVEL ONCE IN A LIFETIME-USE SMARTSET# [id number] Completed 06/12/2022, 01/31/2019, 04/06/2018, Additional history exists [...] Not on filedocumented as of this encounter Procedures Procedure Name Priority Date/Time Associated Diagnosis Comments GLUCOSE METER, POINT OF CARE SANDRA 05/25/2023 9:32 AM EDT documented in this encounter Results * GLUCOSE METER, POINT OF CARE (05/25/2023 9:32 AM EDT) Glucose Meter 106 70 - 120 mg/dL 05/25/2023 9:35 AM EDT [facility] Blood Whole blood specimen / Unknown 05/25/2023 9:32 AM EDT 05/25/2023 9:34 AM EDT Chris Aldridge Jr., MD LAB POINT OF C ARE TEST DOCKED DEVICE UNSOLICITED RESULTS [facility] [address] [place] [address] documented in this encounter Visit Diagnoses Diagnosis Kidney stone- Primary Calculus of kidney documented in this encounter Administered Medications Inactive Administered Medications - up to 3 most recent administrations Medication Order MAR Action Action Date Dose Rate Site Acetaminophen (Tylenol) tab 975 mg 975 mg, Oral, ONCE, On Thu05/25/23 at 0945, For 1 dose, Maximum of 4 grams (4000 mg) per day., Pre-Op Given 05/25/2023 9:12 AM EDT 975 mg albuterol-ipratropium (Duoneb) inhalation solution 3 mL 3 mL, Nebulizer, ONCE, On Thu05/25/23 at 1030, For 1 dose, 3 mL = 0.5 mg ipratropium/ 2.5 mg albuterol, Pre-Op Given 05/25/2023 10:02 AM EDT 3 mL isolyte 1,000 mL bolus infusion Intravenous, at 2,000 mL/hr Administer over 30 Minutes, Administer entire volume within 60 minutes or less. Plasma-LYTE 148, isolyte-S, and isolyte-S pH 7.4 are considered equivalent - including for MAR barcode scanning., ONCE, 1 dose, On Thu05/25/23 at 0945, Pre-Op New Bag 05/25/2023 9:35 AM EDT 1,000 mL 200 0 mL/hr metoclopramide (Reglan) tab 10 mg 10 mg, Oral, ONCE, On Thu05/25/23 at 0945, For 1 dose, Pre-Op Given 05/25/2023 9:13 AM EDT 10 mg documented in this encounter Active and Recently Administered Medications Times are shown in EDT. Scheduled Medication Order 05/23/2023 05/24/2023 05/25/2023 Acetaminophen (Tylenol) tab 975 mg (COMPLETED) 975 mg, Oral, ONCE, On Thu05/25/23 at 0945, For 1 dose, Maximum of 4 grams (4000 mg) per day., Pre-Op 0912 (Given - Provid er: Lee Ann Palacios RN) albuterol-ipratropium (Duoneb) inhalation solution 3 mL (COMPLETED) 3 mL, Nebulizer, ONCE, On Thu05/25/23 at 1030, For 1 dose, 3 mL = 0.5 mg ipratropium/ 2.5 mg albuterol, Pre-Op 1002 (Given - Provid er: Maria Kumari, ZAY) ceFAZolin in dextrose (Ancef) ivpb 2 g (COMPLETED) 2 g, IV Piggyback, ONCE, 1 dose, On Thu05/25/23 at 1030 1016 (Given - Provid er: Elza Smith CRNA - Comment: Administered over 30 minutes) isolyte 1,000 mL bolus infusion (COMPLETED)(Linked Group 1) Intravenous, at 2,000 mL/hr Administer over 30 Minutes, Administer entire volume within 60 minutes or less. Plasma-LYTE 148, isolyte-S, and isolyte-S pH 7.4 are considered equivalent - including for MAR barcode scanning., ONCE, 1 dose, On Thu05/25/23 at 0945, Pre-Op 0935 (New Bag - Prov ider: Lee Ann Palacios RN) isolyte 250 mL bolus infusion (COMPLETED)(Linked Group 1) Intravenous, at 250 mL/hr Administer over 60 Minutes, Administer entire volume within 60 minutes or less. Plasma-LYTE 148, isolyte-S, and isolyte-S pH 7.4 are considered equivalent - including for MAR barcode scanning., ONCE, 1 dose, On Thu05/25/23 at 0945, Pre-Op 1010 (New Bag - Prov ider: Elza Smith CRNA)1010 (Continue from Pre-Op - Provider: Elza Smith CRNA)1011 (Anes Intra-Op Fluid - Provider: Elza Smith CRNA - Comment: Administered in the pre-op area prior to anesthesia taking over care of the patient.)1040 (Anes Intra-Op Fluid - Provider: Elza Smith CRNA) metoclopramide (Reglan) tab 10 mg (COMPLETED) 10 mg, Oral, ONCE, On Thu05/25/23 at 0945, For 1 dose, Pre-Op 0913 (Given - Provid er: Lee Ann Palacios RN) PRN Medication Order 05/23/2023 05/24/2023 05/25/2023 lidocaine urethral/mucosal 2 % gel (CANCELED) ONCE PRN INTRA PROCEDURE, Starting on Thu05/25/23 at 1029, Until Thu05/25/23 at 1037, Intra-Op 1029 (Given - Provid er: Chris Aldridge Jr., MD) sodium chloride IR 0.9 % irrigation (CANCELED) ONCE PRN INTRA PROCEDURE, Starting on Thu05/25/23 at 1029, Until Thu05/25/23 at 1037, Intra-Op 1029 (Given - Provid er: Chris Aldridge Jr., MD) Linked Groups Order Group 1: isolyte 1,000 mL bolus infusion (COMPLETED)Jump to med Intravenous, at 2,000 mL/hr Administer over 30 Minutes
Administer entire volume within 60 minutes or less. Plasma-LYTE 148, isolyte-S, and isolyte-S pH 7.4 are considered equivalent - including for MAR barcode scanning.
ONCE, 1 dose, On Thu05/25/23 at 0945, Pre-Op Followed by isolyte 250 mL bolus infusion (COMPLETED)Jump to med Intravenous, at 250 mL/hr Administer over 60 Minutes
Administer entire volume within 60 minutes or less. Plasma-LYTE 148, isolyte-S, and isolyte-S pH 7.4 are considered equivalent - including for MAR barcode scanning.
ONCE, 1 dose, On 05/25/23 at 0945, Pre-Op documented in this encounter Advance Directives Latest [...] Advance Directives occurred with: Patient Care Teams Hothouse Worker Relationship Specialty Start Date End Date Meaghan Wilson MD [address] [place] [id number] PCP - General Family Medicine 06/11/21 documented as of this encounter
--- OUTSIDE RECORDS SUMMARY | 2023-07-17 07:47 | External Medical Summary ---
Author Name Unknown Address Unknown Organization K01:[facility] [place] [address] [facility] [address] Laboratory Report Ordering Provider Test Date Status STEVE HARDING 05/28/2023 10:59:16 Final Drugs that require complianc e testing:

Opioids:
Oxycodone: Quantity unknown Date/Time of last Dose unknown

Benzodiazepines
Lorazepam: Quantity unknown Date/Time of last Dose unknown

Cutoff Concentrations:
Drug Level
Oxycodone 50 ng/mL
Oxymorphone 50 ng/mL

This test was developed and its performance characteristics determined by [facility]. It has not been cleared or approved by the [place] Food and Drug Administration. Observation Date Value Abnormality Reference (Units ) Status METHODOLOGY 05/28/2023 10:59:16 LC-MS/MS Final oxyCODONE [Presence] in Urine by Screen method 05/28/2023 10:59:16 Negative Negative Final oxyMORphone cutoff [Mass/volume] in Urine for Confirmatory method 05/28/2023 10:59:16 Negative Negative Final Performing Location [facility] [address] [facility] [address]
--- OUTSIDE RECORDS SUMMARY | 2023-07-17 07:48 | External Medical Summary | Summary of Care ---
Author Name Unknown Organization [facility] Address [address] [place] [address] Phone [phone] Care Team Providers Care Fast Food Restaurant Manager Name Role Phone Moreno العلي MD Primary Care Provider [phone] Reason for Visit * Reason Onset Date Comments Letter Requests 05/15/2023 Encounter Details Date Type Department Care Team Description 05/15/2023 Telephone Pharmacy Call Center [address] [facility] [place] [address] Pharmacist1, [facility] [place] [address] [place] [address] Letter Requests Allergies Active [...] as of this encounter (statuses as of 05/18/2023) Medications Medication Sig Dispensed Refills Start Date [...] hemoglobin A1c goal of less than 7.0% ([facility]) Take by mouth 1 Tablet [...] Solution (Proventil)Indicatio ns:COPD, severity to be determined ([facility]) inhale contents of 1 vial [...] OPD, group C, by GOLD 2017 classification ([facility]) inhale 1 puff by mouth [...] as of this encounter (statuses as of 05/18/2023) Active Problems Problem Noted Date Depression with [...] as of this encounter (statuses as of 05/18/2023) Resolved Problems Problem Noted Date Resolved Date [...] as of this encounter (statuses as of 05/18/2023) Immunizations Name Administration Dates Next Due COVID-19 [...] go today. Pt can be reached at [phone]. Thanks, Dot Sahu Material Attendant [facility] 05/18/2023,8:11 AM * Telephone Encounter - Rolf Ortiz RPh - 05/15/2023 5:07 PM EDT Faxed 05/18 [facility] appointment notification to Call A Ride at * Telephone Encounter - DENILSON Marin - 05/15/2023 2:04 PM EDT [facility] desktop manager calling, pt dropped off there they r/s [...] Encounters Date Type Specialty Care Team Description 05/18/2023 Office Visit Pharmacy Pharmacist1, [facility] [address] [place] [id number] 05/25/2023 Hospital Encounter Surgery Chris Aldridge Jr., MD [address] [place] [place] [address] 05/25/2023 Surgery Surgery Chris Aldridge Jr., MD [address] [place] [address] CYSTOURETHROSCOPY WITH FOREIGN BODY REMOVAL SIMPLE 09/28/2023 Office Visit Family Medicine Moreno العلي MD [address] [place] [address] Scheduled Procedures Name Priority Associated Diagnoses Date/Ti me CYSTOURETHROSCOPY WITH FOREI GN BODY REMOVAL SIMPLE Kidney stone 05/25/2023 7:40 AM EDT COLONOSCOPY FLEXIBLE PROXIMA L DIAGNOSTIC Recall Family history of colon cancer Health Maintenance Due Date Last Done Comments Alpha-1 Antitrypsin 1968 Sigmoidoscopy 1995 *ADVANCE DIRECTIVE NOT ON FILE 08/26/2014 Fecal Occult Blood Test 11/06/2017 11/06/2016, 01/24 DXA Scan 04/12/2020 04/12/2018, 02/25/2016 COVID-19 Vaccine (3 - Moderna series) 01/12/2021 11/17/2020, 10/20/2020 Cologuard 11/04/2021 11/04/2018 Depression Screening 03/08/2022 03/08/2021 DIABETES-EYE EXAM 07/05/2022 07/05/2021, , 07/05/2021, Additional history exists Diabetic Foot Exam 12/27/2022 12/27/2021, 0 03/08/2021, 03/07/2020, Additional history exists Mammogram 03/04/2023 03/04/2022, 05/18, 02/13/2017, Additional history exists HbA1c 09/11/2023 03/11/2023, 02/14, 08/21/2022, Additional history [...] D LEVEL ONCE IN A LIFETIME-USE SMARTSET# [id number] Completed 06/12/2022, 01/31/2019, 04/06/2018, Additional history exists [...] Advance Directives occurred with: Patient Care Teams Fast Food Restaurant Manager Relationship Specialty Start Date End Date Moreno العلي MD [address] [place] [phone] PCP - General Family Medicine 06/11/21 documented as of this encounter
--- OUTSIDE RECORDS SUMMARY | 2023-07-17 07:48 | External Medical Summary | Summary of Care ---
Author Name Unknown Organization [facility] Address [address] [place] [address] Phone [phone] Care Team Providers Care District Administrative Assistant Name Role Phone Moreno العلي MD Primary Care Provider [phone] Reason for Visit * Reason Onset Date Comments Order Request 05/18/2023 Mammogram Screen ing BLAINE Bilateral Encounter Details Date Type Department Care Team Description 05/18/2023 Telephone Radiology, [place] [address] [place] [address] Services, Scheduling [address] [place] [address] Order Request (Mammogram Screening BLAINE Bi... Allergies Active Allergy Reactions Severity Noted Date [...] hemoglobin A1c goal of less than 7.0% ([facility]) Take by mouth 1 Tablet [...] Solution (Proventil)Indicatio ns:COPD, severity to be determined ([facility]) inhale contents of 1 vial [...] by mouth in the morning. 90 Tablet 09/10/2022 Active Baclofen 10 MG Oral Tablet [...] (Fosamax)Indications :Osteoporosis 1 tablet weekly 12 Tablet 09/10/2022 Active Amitriptyline HCl 10 MG Oral [...] OPD, group C, by GOLD 2017 classification ([facility]) inhale 1 puff by mouth [...] encounter Miscellaneous Notes * Telephone Encounter - JEMIMA Xiong - 05/18/2023 4:21 PM EDT Could you please place a Mammogram Screening BLAINE Bilateral order for patient. She is currently scheduled for her yearly exam. Thank you Radiology Scheduling documented in this encounter Plan of Treatment Upcoming Encounters Date Type Specialty Care Team Description 05/25/2023 Hospital Encounter Surgery Chris Aldridge Jr., MD [address] [place] [place] [address] 05/25/2023 Surgery Surgery Chris Aldridge Jr., MD [address] [place] [address] CYSTOURETHROSCOPY WITH FOREIGN BODY REMOVAL SIMPLE 05/25/2023 Office Visit Pharmacy Pharmacist1, [facility] [address] [place] [id number] 08/27/2023 Appointment Radiology 09/28/2023 Office Visit Family Medicine Moreno العلي MD [address] [facility] [place] [address] Scheduled Orders Name Type Priority Associated Diagnoses Orde r Schedule MAMMOGRAM SCREENING BLAINE BILATERAL Medical Imaging Routine Encounter for screening mammogram for breast cancer Expected: 05/19/2023, Expires: 06/18/2024 Scheduled Procedures Name Priority Associated Diagnoses Date/Ti [...] D LEVEL ONCE IN A LIFETIME-USE SMARTSET# [id number] Completed 06/12/2022, 01/31/2019, 04/06/2018, Additional history exists [...] as of this encounter Visit Diagnoses Diagnosis Encounter for screening mammogram for breast cancer- Primary Kidney stone Calculus of kidney documented in this encounter Advance Directives Latest [...] Advance Directives occurred with: Patient Care Teams District Administrative Assistant Relationship Specialty Start Date End Date Moreno العلي MD [address] [place] [address] PCP - General Family Medicine 06/11/21 documented as of this encounter
--- OUTSIDE RECORDS SUMMARY | 2023-07-17 07:48 | External Medical Summary | Summary of Care ---
Author Name Unknown Organization [facility] Address [address] [place] [address] Phone [phone] Care Team Providers Care Bleach Chlorinator Name Role Phone Moreno العلي MD Primary Care Provider [phone] Reason for Visit * Reason Onset Date Comments Order Request 05/18/2023 Mammogram Screen ing BLAINE Bilateral Encounter Details Date Type Department Care Team Description 05/18/2023 Telephone Radiology, [place] [address], [place] [id number] Services, Scheduling [address] [place] [address] Order Request (Mammogram Screening BLAINE Bi... Allergies [...] goal of less than 7.0% ([facility]) Take by mouth 1 Tablet [...] Solution (Proventil)Indicatio ns:COPD, severity to be determined ([facility]) inhale contents of 1 vial [...] OPD, group C, by GOLD 2017 classification ([facility]) inhale 1 puff by mouth [...] encounter Miscellaneous Notes * Telephone Encounter - Melissa Portillo LPN - 05/19/2023 9:06 AM EDT Mammo ordered yesterday. * Telephone Encounter - JEMIMA Xiong - [...] MD [address] [place] [address] 05/25/2023 Surgery Surgery Chris Aldridge Jr., MD [address] [place] [address] CYSTOURETHROSCOPY WITH FOREIGN BODY REMOVAL SIMPLE 05/25/2023 Office Visit Pharmacy Pharmacist1, [facility] [address] [place] [address] 08/27/2023 Appointment Radiology 09/28/2023 Office Visit Family Medicine Moreno العلي MD [address] [place] [address] Scheduled Orders Name Type Priority Associated Diagnoses [...] D LEVEL ONCE IN A LIFETIME-USE SMARTSET# [id number] Completed 06/12/2022, 01/31/2019, 04/06/2018, Additional history exists [...] Advance Directives occurred with: Patient Care Teams Bleach Chlorinator Relationship Specialty Start Date End Date Moreno العلي MD [address] [place] [address] PCP - General Family Medicine 06/11/21 documented as of this encounter
--- OUTSIDE RECORDS SUMMARY | 2023-07-17 07:48 | External Medical Summary | Summary of Care ---
Author Name Unknown Organization [facility] Address [address] [place] [address] Phone [phone] Care Team Providers Care Digital Content Specialist Name Role Phone Meaghan العلي MD Primary Care Provider [phone] Reason for Visit * Auth/Cert Specialty Diagnoses / Procedures Referred By Erika zapata Referred To Contact Diagnoses Kidney stone Kidney stone [N20.0] Procedures CYSTO/URETERO W/LITHOTRIPSY CYSTOURETHROSCOPY URETEROSCOPY WITH LITHOTRIPSY AND STENT INSERTION Referral ID Status Reason Start Date Expiration Date Visits Re quested Visits Authorized [id number] Encounter Details Date Type Department Care Team Description 05/11/2023 Hospital Encounter OR [facility], Operating Room, [facility] - 4th Floor [address] [facility] [place] [address] Chris Aldridge Jr., MD [address] [place] [address] [place] [address] Allergies Active Allergy Reactions Severity Noted Date [...] as of this encounter (statuses as of 05/12/2023) Medications Medication Sig Dispensed Refills Start Date [...] hemoglobin A1c goal of less than 7.0% ([facility]) Take by mouth 1 Tablet [...] Solution (Proventil)Indicati ons:COPD, severity to be determined ([facility]) inhale contents of 1 vial [...] COPD, group C, by GOLD 2017 classification ([facility]) inhale 1 puff by mouth [...] BEFORE BEDTIME 180 Tablet 1 04/22/2023 Active oxyCODONE-Acetamino phen 5-325 MG Oral Tablet (Percocet) Take 1 Tablet by mouth every 4 hours as needed for Pain, Severe. 16 Tablet 0 05/11/2023 Active oxyCODONE HCl 10 MG Oral Tablet (Roxicodone)Indicat ions:Controlled substance agreement signed,Spinal stenosis of lumbar region without neurogenic claudication Take 1 Tablet by mouth every 4 hours as needed for Pain, Severe. 60 Tablet 0 04/07/2023 05/04/20 23 Discontinu ed(Refill) documented as of this encounter (statuses as of 05/12/2023) Active Problems Problem Noted Date Depression with [...] as of this encounter (statuses as of 05/12/2023) Resolved Problems Problem Noted Date Resolved Date [...] as of this encounter (statuses as of 05/12/2023) Immunizations Name Administration Dates Next Due COVID-19 mRNA, LNP-s, No Pre serve, 2-Dose Series (Moderna) 11/17/2020,10/20/2020 H1N1 2009 Influenza, IM 08/15/2009 Pneumococcal Conjugate Vacc, 13 Valent (Prevnar) 02/04/2016 Pneumococcal Polysaccharide PPV23 (Pneumovax) 02/24/2017 Season Influenza, Quad, PF, Adjuvanted, 65+ Yrs, IM (FLUAD) 07/09/2020 Seasonal Influenza Virus Vac cine, Unspecified Formulation 07/09/2020,06/02/2019,06/13/2018,07/20,05/14/2016,04/18/2014,05/18/2013 ,06/15/2012,05/14/2011,05/03/2010,04/17,06/17/2008,08/09/2007, 5,05/27/2004,07/23/2001 Seasonal Influenza, PF, 6 mo ns & Above, IM , (Flulaval) 06/13/2018,07/20/2017 Seasonal Influenza, Quadriva lent Hd (Fluzone Hd) [...] Sign Reading Time Taken Comments Blood Pressure 188/88 05/11/2023 12:18 PM EDT Pulse 73 05/11/2023 12:18 PM EDT Temperature 36.1 C (97 F) 05/11/2023 12:18 PM EDT Respiratory Rate 18 05/11/2023 12:18 PM EDT Oxygen Saturation 97% 05/11/2023 12:18 PM EDT Inhaled Oxygen Concentration - - Weight 96.2 kg (212 lb) 05/11/2023 8:07 AM EDT Height 157.5 cm (5' 2.01") 05/11/2023 8:07 AM ED T Body Mass Index 38.77 05/11/2023 8:07 AM EDT documented in this encounter Functional Status Functional Status Response Date of Assess ment Do you have serious difficul ty walking or climbing stairs? (5 years old or older) No 03/04/2023 documented as of this encounter Discharge Instructions * Discharge Instr - AVS* Chris Aldridge Jr., MD - 05/11/2023 9:03 AM EDT Discharge Date: 05/11/2023 Check your Patient Education Brochure for further information. If you have any further questions call your physician at [phone]. The information below provides you with the [...] documents for 24 hours. Control of Pain: Prescription: percocet PRN Warnings: Call your surgeon promptly in case of: A. Excessive bleeding B. Fever greater than 101 degrees F (38.3 degrees centigrade) C. Persistent nausea and vomiting D. Redness, swelling or pus-like drainage E. Pain that is not relieved by the medicine you were told to take F. Other stent removal as scheduled in OR Special Instructions: A. Dressing change: none Date you may return to work or school: N/A Follow-up with your urologist in 2 week(s). documented in this encounter Progress Notes * Chris Aldridge Jr., MD - 05/11/2023 9:03 AM EDT [address] [address] OUTPATIENT SURGERY DISCHARGE SUMMARY NOTE Name: Anika Salvador Location: [facility] Date: 05/11/2023 Time: 9:03 AM Surgery Date: 05/11/2023 Procedure: Procedure(s): CYSTOURETHROSCOPY URETEROSCOPY WITH LITHOTRIPSY AND STENT INSERTION Left Surgeon: Surgeon(s): Chris Aldridge Jr., MD Discharge Diagnosis: stones After examination of this patient, I have determined she is ready for discharge to home when the patient meets criteria. Discharge instructions were given to the patient. documented in this encounter H&P Notes * Chris Aldridge Jr., MD - 05/11/2023 8:22 AM EDT H&P 05/11/23 [id number] PCP: MEAGHAN العلي [address] [place] [address] [phone] Anika Salvador is a 72 year old [...] Bandages & Supports (KNEE BRACE/HINGED BARS LARGE) [facility] Use for right knee instability 1 Each 0 Incontinence Supply Disposable (COMFORT SHIELD ADULT DIAPERS) [facility] Adult large pull ups use 2 dailyand [...] DIAGNOSTIC (RECTUM) 06/06/2021 poor prep, repeat / [facility] CYSTOSCOPY 02/22/2014 ull left with stent exchange CYSTOSCOPY/INSERTION OF STENT Left 03/03/2023 CYSTOURETHROSCOPY WITH INSERTION URETERAL STENT performed by Chris Aldridge Jr., MD at OR [facility] CYSTOSCOPY/REMOVE OBJECT, SIMPLE 03/20/2014 EGD, FLEXIBLE, DIAGNOSTIC 06/06/2021 normal bx / [facility] MISCELLANEOUS ORDER ([facility] ONLY) 03/16/2008 Right breast punch biopsy (benign) - Dr. Orozco REMOVAL OF TONSILS, AGE 12+ Tonsils Removal,12+ Y/O Patient Active Problem List Diagnosis Code Spinal stenosis of lumbar region without neurogenic claudication M48.061 Gastroesophageal reflux disease without esophagitis K21.9 Type 2 diabetes mellitus with hemoglobin A1c goal of less than 8.0% ([facility]) E11.9 Dyslipidemia E78.5 RLS (restless legs syndrome) G25.81 HTN, goal below 130/80 I10 Controlled substance agreement signed Z79.899 COPD, group C, by GOLD 2017 classification ([facility]) J44.9 Senile osteoporosis M81.0 Moderate aortic stenosis I35.0 Morbid obesity ([facility]) E66.01 Depression with anxiety F41.8 Past Surgical [...] a long history of seeing urologists in [place] for stones and may return to themfor treatment. Chris Aldridge Jr, MD 1:17 PM 04/15/2023In And Out Surgery Nothing to eat or drink after midnight the night prior to surgery Discontinue Aspirin/NSAID use 7 days prior to procedure CT 03/02/23 Kidneys and ureters: The left kidney is mildly edematous compared to the right with subtle adjacent perinephric fat stranding. Mild prominence of the left renal collecting system with 2 renal calculi within the left renal pelvis measuring 1.1 and 0.7 cm respectively. Right kidney is unremarkable. CULTURE, URINE, QUANTITATIVE Order: [id number] Status: Final result Visible to patient: Yes (seen) Next appt: 05/15/2023 at 01:00 PM in Pharmacy ([facility] Pharmacist1) Dx: Preoperative cardiovascular examinati... Specimen Information: Urine, Clean Catch 0 Result Notes Culture Growth No significant growth Resulting Agency: Specimen Collected: 05/04/23 13:41 documented in this encounter Nursing Notes * Brian Ghosh RN - 05/11/2023 12:35 PM EDT [address] [address] SameDay Surgery Discharge Note Name: Anika Salvador Date: 05/11/2023 Time: 12:36 PM Discharge Disposition: Home Responsible adult as escort home: granddaughter Transport Mode: Wheelchair Accompanied by: Mundo Ghosh RN To: Car Belongings with patient: Yes Patient meets criteria to be transferred or discharged. * Jojo Camargo RN - 04/27/2023 3:19 PM EDT Patient identified by: name/birthdate Person taught: Patient Optime case procedure confirmed with patient/parent/guardian - no consent signed. Laterality confirmed as Left Surgery date at time of Pre-Surgery Center Encounter: 05/11/23 Cystourethroscopy, Ureteroscopy, Lithotripsy and Stent Insertion - Left and 05/25/23 Cystourethroscopy with Stent Removal - Left What procedure is patient having? See above In an emergency, is patient willing to accept blood products or blood transfusion? Unknown Do you need to place a blood bank order? No Anesthesia consent pool notified? N/A Anesthesia evaluation requested per case documentation? No Preop Evaluation Requested? No PATIENT EDUCATION SCREENING Person taught: Patient Motivation Level: Asks Questions and Eager to Learn Language Barrier: No Physical Barrier: N/A METHOD: Lecture-telephone interview Patient Preferred Learning Methods: Lecture-Telephone interview Health History interview completed, questions answered, and the following patient instructions provided via telephone interview: Preoperative bathing instructions General preoperative instructions Medication instructions NPO instructions - If your normal morning routine take Spiriva, Advair, Lipitor, Wellbutrin, Singulair, Protonix, combivent and ativan if needed the morning of surgery. Pt states she received instructions from Dr. Aldridge's office re: use of ASA and NSAID pre-op. OUTCOME: State / Describe / Explain and Needs Reinforcement documented in this encounter OR Notes * OR Surgeon - Chris Aldridge Jr., MD - 05/11/2023 10:26 AM EDT [facility] [address] OPERATIVE REPORT Name: Anika Salvador Date: 05/11/2023 Time: 8:54 AM Location: [facility] Service: Urology Date of Operation: 05/11/2023 Pre-op [...] and stone prevention at that later date. * Operative Report Brief - Chris Aldridge Jr., MD - 05/11/2023 8:54 AM EDT [facility] [address] OPERATIVE REPORT - BRIEF Name: Anika Salvador Date: 05/11/2023 Time: 8:54 AM Location: [facility] Service: Urology Date of Operation: 05/11/2023 Pre-op [...] Encounters Date Type Specialty Care Team Description 05/15/2023 Office Visit Pharmacy Pharmacist1, [facility] [address] [place] [address] 05/25/2023 Hospital Encounter Surgery Chris Aldridge Jr., MD [address] [facility] [address] [place] [address] 05/25/2023 Surgery Surgery Chris Aldridge Jr., MD [address] [facility] [address] [place] [address] CYSTOURETHROSCOPY WITH FOREIGN BODY REMOVAL SIMPLE 09/28/2023 Office Visit Family Medicine Meaghan العلي MD [address] [facility] [place] [address] Pending Results Name Type Priority Associated Diagnoses Date /Time STONE ANALYSIS Lab Routine Kidney stone 05/11/2023 10:19 AM EDT Scheduled Orders Name Type Priority Associated Diagnoses Orde r Schedule STONE ANALYSIS Lab Routine Kidney stone Release Upon Ordering for 1 Occurrences starting 05/11/2023 Scheduled Procedures Name Priority Associated Diagnoses Date/Ti [...] Colonoscopy 06/06/2031 06/06/2021 Colorectal Cancer Screening 06/06/2031 Pneumococcal Vaccine: 65+ Years Completed 02/24/2017, 02/04/2016, 08/07/2005 Zoster Vaccines Completed 05/27/2020, 02/15, 07/30/2012 VITAMIN D LEVEL ONCE IN A LIFETIME-USE SMARTSET# [id number] Completed 06/12/2022, 01/31/2019, 04/06/2018, Additional history exists [...] Comments GLUCOSE METER, POINT OF CARE SANDRA 05/11/2023 10:35 AM EDT XR RETROGRADE URETHROGRAM IN OR - TECH CHARGE Routine 05/11/2023 10:25 AM EDT GLUCOSE METER, POINT OF CARE [facility] 05/11/2023 8:29 AM EDT documented in this encounter Results * GLUCOSE METER, POINT OF CARE (05/11/2023 10:35 AM EDT) Glucose Meter 117 70 - 120 mg/dL 05/11/2023 10:37 AM EDT [facility] Blood Whole blood specimen / Unknown 05/11/2023 10:35 AM EDT 05/11/2023 10:37 AM EDT Chris Aldridge Jr., MD LAB POINT OF C ARE TEST DOCKED DEVICE UNSOLICITED RESULTS [facility] [address] [place] [address] * XR RETROGRADE URETHROGRAM IN OR - TECH CHARGE (05/11/2023 10:25 AM EDT) Narrative Scheduling, Silent - 05/11/2023 10:25 AM EDT This procedure will not be read by a Radiologist. Please see operative note. Chris Aldridge Jr., MD RADIOLOGY ([facility]) * GLUCOSE METER, POINT OF CARE (05/11/2023 8:29 AM EDT) Glucose Meter 97 70 - 120 mg/dL 05/11/2023 8:30 AM EDT [facility] Blood Whole blood specimen / Unknown 05/11/2023 8:29 AM EDT 05/11/2023 8:30 AM EDT Chris Aldridge Jr., MD LAB POINT OF C ARE TEST DOCKED DEVICE UNSOLICITED RESULTS [facility] [address] [place] [address] documented in this encounter Visit Diagnoses Diagnosis Kidney stone Calculus of kidney Kidney stone Calculus of kidney documented in this encounter Administered Medications Inactive Administered Medications - up to 3 most recent administrations Medication Order MAR Action Action Date Dose Rate Site albuterol-ipratropium (Duoneb) inhalation solution 3 mL 3 mL, Nebulizer, RESPQID, First dose on Thu05/11/23 at 0845, Until Discontinued, 3 mL = 0.5 mg ipratropium/ 2.5 mg albuterol Given 05/11/2023 8:41 AM EDT 3 mL ePHEDrine sulfate inj 10 mg 10 mg, IV Push, Q5 MIN PRN Other, Administer for systolic BP less than 80 mm Hg., Starting on Thu05/11/23 at 1038, Until Thu05/11/23 at 1638, For 3 doses, Administer for systolic BP less than 80 mm Hg. ADMINISTER ONLY IN PACU, PACU fentaNYL (PF) inj 25 mcg 25 mcg, IV Push, Q5 MIN PRN Pain, Severe, Starting on Thu05/11/23 at 1038, Until Thu05/11/23 at 1638, For 3 doses, Administer up to 150 mcg total in 24 hours. ADMINISTER ONLY IN PACU When given IV Push its recommended that the dose be given over 3 to 5 minutes. , PACU Given 05/11/2023 10:58 AM EDT 25 mcg Given 05/11/2023 10:43 AM EDT 25 mcg isolyte-S pH 7.4 infusion Intravenous, Plasma-LYTE 148, isolyte-S, and isolyte-S pH 7.4 are considered equivalent - including for MAR barcode scanning., CONTINUOUS, Starting on Thu05/11/23 at 0900, Until Thu05/11/23 at 1638 Rate Change 05/11/2023 8:53 AM EDT 50 mL /hr Continue from Pre-Op 05/11/2023 8:48 AM EDT 10 mL/hr New Bag 05/11/2023 8:40 AM EDT 1,000 mL 10 mL/hr ondansetron (Zofran) inj 4 mg 4 mg, IV Push, Q6H PRN Nausea, Starting on Thu05/11/23 at 1038, Until Thu05/11/23 at 1337, For 3 hours, Administer only in PACU., PACU oxyCODONE (Oxy IR) tab 10 mg 10 mg, Oral, ONCE, On Thu05/11/23 at 1145, For 1 dose Given 05/11/2023 11:18 AM EDT 10 mg oxygen GAS Inhalation, OXYGEN, First dose on Thu05/11/23 at 1115, Until Discontinued, Device/Managed by: Low Flow Device, Goal SPO2 (%): 91-95, Starting Device: Nasal Cannula, Inital Flow Rate (LPM): 2, Lowest Support: Nasal Cannula: Flow 0-6 LPM. Titrate up/down by 1 LPM., Titration Interval: Q2 minutes and as needed., Notify Provider: For sudden DECREASE in resting SPO2 to less than 85% and when escalating delivery device. documented in this encounter Active and Recently Administered Medications Times are shown in EDT. Scheduled Medication Order 05/09/2023 05/10/2023 05/11/2023 albuterol-ipratropium (Duoneb) inhalation solution 3 mL 3 mL, Nebulizer, RESPQID, First dose on Thu05/11/23 at 0845, Until Discontinued, 3 mL = 0.5 mg ipratropium/ 2.5 mg albuterol 0841 (Given - Provid er: Chacorta Tamayo RN - Comment: Given by Ben Garcia RN)1200 (Due) ceFAZolin in dextrose (Ancef) ivpb 2 g (COMPLETED) 2 g, IV Piggyback, ONCE, 1 dose, On Thu05/11/23 at 0900 0901 (Given - Provid er: TUCKER Mcnamara) fentaNYL (PF) inj 50 mcg 50 mcg, IV Push, ONCE, On Thu05/11/23 at 1145, For 1 dose, When given IV Push its recommended that the dose be given over 3 to 5 minutes. 1145 (Due) oxyCODONE (Oxy IR) tab 10 mg (COMPLETED) 10 mg, Oral, ONCE, On Thu05/11/23 at 1145, For 1 dose 1118 (Given - Provid er: Brooklynn Mcclain RN) oxygen GAS Inhalation, OXYGEN, First dose on Thu05/11/23 at 1115, Until Discontinued, Device/Managed by: Low Flow Device, Goal SPO2 (%): 91-95, Starting Device: Nasal Cannula, Inital Flow Rate (LPM): 2, Lowest Support: Nasal Cannula: Flow 0-6 LPM. Titrate up/down by 1 LPM., Titration Interval: Q2 minutes and as needed., Notify Provider: For sudden DECREASE in resting SPO2 to less than 85% and when escalating delivery device. 1115 (Due) Continuous Medication Order 05/09/2023 05/10/2023 05/11/2023 isolyte-S pH 7.4 infusion Intravenous, Plasma-LYTE 148, isolyte-S, and isolyte-S pH 7.4 are considered equivalent - including for MAR barcode scanning., CONTINUOUS, Starting on Thu05/11/23 at 0900, Until Thu05/11/23 at 1638 0840 (New Bag - Prov ider: Chacorta Tamayo RN)0848 (Continue from Pre-Op - Provider: TUCKER Mcnamara)0853 (Rate Change - Provider: TUCKER Mcnamara)1022 (Anes Intra-Op Fluid - Provider: TUCKER Mcnamara) PRN Medication Order 05/09/2023 05/10/2023 05/11/2023 ePHEDrine sulfate inj 10 mg 10 mg, IV Push, Q5 MIN PRN Other, Administer for systolic BP less than 80 mm Hg., Starting on Thu05/11/23 at 1038, Until Thu05/11/23 at 1638, For 3 doses, Administer for systolic BP less than 80 mm Hg. ADMINISTER ONLY IN PACU, PACU fentaNYL (PF) inj 25 mcg 25 mcg, IV Push, Q5 MIN PRN Pain, Severe, Starting on Thu05/11/23 at 1038, Until Thu05/11/23 at 1638, For 3 doses, Administer up to 150 mcg total in 24 hours. ADMINISTER ONLY IN PACU When given IV Push its recommended that the dose be given over 3 to 5 minutes. , PACU 1043 (Given - Provid er: Brooklynn Mcclain RN)1058 (Given - Provider: Brooklynn Mcclain RN) ondansetron (Zofran) inj 4 mg 4 mg, IV Push, Q6H PRN Nausea, Starting on Thu05/11/23 at 1038, Until Thu05/11/23 at 1337, For 3 hours, Administer only in PACU., PACU sodium chloride IR 0.9 % irrigation (CANCELED) ONCE PRN INTRA PROCEDURE, Starting on Thu05/11/23 at 1021, Until Thu05/11/23 at 1028, Intra-Op 1021 (Given - Provid er: Chris Aldridge Jr., MD) documented in this encounter Advance Directives Latest [...] Advance Directives occurred with: Patient Care Teams Digital Content Specialist Relationship Specialty Start Date End Date Meaghan العلي MD [address] [place] [address] PCP - General Family Medicine 06/11/21 documented as of this encounter
--- OUTSIDE RECORDS SUMMARY | 2023-07-17 07:48 | External Medical Summary | Summary of Care ---
Author Name Unknown Organization [facility] Address [address] [place] [address] Phone [phone] Care Team Providers Care Neurological Surgery Teacher Name Role Phone Moreno العلي MD Primary Care Provider [phone] Reason for Visit * Reason Onset Date Comments Letter Requests 05/15/2023 Encounter Details Date Type Department Care Team Description 05/15/2023 Telephone Pharmacy Call Center [address] [facility] [place] [address] Pharmacist1, [facility] [place] [address] [place] [address] Letter Requests Allergies Active [...] as of this encounter (statuses as of 05/15/2023) Medications Medication Sig Dispensed Refills Start Date [...] as of this encounter (statuses as of 05/15/2023) Active Problems Problem Noted Date Depression with [...] as of this encounter (statuses as of 05/15/2023) Resolved Problems Problem Noted Date Resolved Date [...] as of this encounter (statuses as of 05/15/2023) Immunizations Name Administration Dates Next Due COVID-19 [...] - 05/15/2023 5:07 PM EDT Faxed 05/18 [facility] appointment notification to Call A Ride at * Telephone Encounter - DENILSON Marin - 05/15/2023 2:04 PM EDT [facility] front desk supervisor calling, pt dropped off there they r/s [...] Team Description 05/18/2023 Office Visit Pharmacy Pharmacist1, [facility] [place] [address] [place] [address] 05/25/2023 Hospital Encounter Surgery Oly Pierson, Chris Monsalve MD [address] [facility] [address] [place] [address] 05/25/2023 Surgery Surgery Oly Pierson, Chris Monsalve MD [address] [place] [address] [place] [address] CYSTOURETHROSCOPY WITH FOREIGN BODY REMOVAL SIMPLE 09/28/2023 Office Visit Family Medicine Moreno العلي MD [address] [place] [address] Scheduled Procedures Name Priority Associated Diagnoses Date/Ti [...] D LEVEL ONCE IN A LIFETIME-USE SMARTSET# [id number] Completed 06/12/2022, 01/31/2019, 04/06/2018, Additional history exists [...] Advance Directives occurred with: Patient Care Teams Neurological Surgery Teacher Relationship Specialty Start Date End Date Moreno العلي MD [address] [place] [address] PCP - General Family Medicine 06/11/21 documented as of this encounter
--- OUTSIDE RECORDS SUMMARY | 2023-07-17 07:49 | External Medical Summary | Summary of Care ---
Author Name Unknown Organization [facility] Address [address] [place] [address] Phone [phone] Care Team Providers Care Commercial Construction Project Manager Name Role Phone Moreno العلي MD Primary Care Provider [phone] Reason for Visit * Reason Comments Outpatient Testing Encounter Details Date Type Department Care Team Description 05/04/2023 Laboratory Laboratory, [facility] [address] [place] [id number] [facility], Lab [address] [place] [address] Kidney stone; Preoperative cardiovascular examination Allergies Active Allergy Reactions Severity Noted Date [...] as of this encounter (statuses as of 05/04/2023) Medications Medication Sig Dispensed Refills Start Date [...] 3 DOSES 50 Tablet 5 07/23/2021 Active [facility]S D3 50 MCG (1999 [place]) Oral Capsule (Cholecalciferol)Ind ications:Vitamin D deficiency Take by mouth 1 Capsule in the morning. 90 Capsule 3 12/27/2021 Active Aspirin 81 MG Oral Tablet Delayed Release (Aspirin Low Dose)Indications:Dys lipidemia, goal LDL below 100,Type 2 diabetes mellitus with hemoglobin A1c goal of less than 7.0% ([facility]) Take by mouth 1 Tablet in [...] OPD, group C, by GOLD 2017 classification ([facility]) inhale 1 puff by mouth and [...] A MEAL 90 Tablet 1 03/17/2023 Active oxyCODONE HCl 10 MG Oral Tablet (Roxicodone)Indicati ons:Controlled substance agreement signed,Spinal stenosis of lumbar region without neurogenic claudication Take 1 Tablet by mouth every 4 hours as needed for Pain, Severe. 60 Tablet 0 04/07/2023 Active Ondansetron HCl 4 MG Oral Tablet [...] BEFORE BEDTIME 180 Tablet 1 04/22/2023 Active documented as of this encounter (statuses as of 05/04/2023) Active Problems Problem Noted Date Depression with [...] as of this encounter (statuses as of 05/04/2023) Resolved Problems Problem Noted Date Resolved Date [...] as of this encounter (statuses as of 05/04/2023) Immunizations Name Administration Dates Next Due COVID-19 mRNA, LNP-s, No Pre serve, 2-Dose Series (Moderna) 11/17/2020,10/20/2020 H1N1 2009 Influenza, IM 08/15/2009 Influenza, Whole Virus 07/23/2001 Pneumococcal Conjugate Vacc, 13 Valent (Prevnar) 02/04/2016 Pneumococcal Polysaccharide PPV23 (Pneumovax) 02/24/2017,08/07/2005 Season Influenza, Quad, PF, Adjuvanted, 65+ Yrs, [...] as of this encounter Miscellaneous Notes * Addendum Note - PRACHI Lopez - 05/04/2023 1:52 PM EDTAddended by: JOSE R RANGEL on: 05/04/2023 01:52 PM Modules accepted: Orders documented in this encounter Plan of Treatment Upcoming Encounters Date Type Specialty Care Team Description 05/11/2023 Hospital Encounter Surgery Chris Aldridge Jr., MD [address] [place] [address] [place] [address] 05/11/2023 Surgery Surgery Chris Aldridge Jr., MD [address] [facility] [place] [address] [place] [address] CYSTOURETHROSCOPY URETEROSCOPY WITH LITHOTRIPSY AND STENT INSERTION 05/25/2023 Hospital Encounter Surgery Chris Aldridge Jr., MD [address] [place] [address] [place] [address] 05/25/2023 Surgery Surgery Chris Aldridge Jr., MD [address] [place] [address] [place] [address] CYSTOURETHROSCOPY WITH FOREIGN BODY REMOVAL SIMPLE 09/28/2023 Office Visit Family Medicine Moreno العلي MD [address] [place] [address] Pending Results Name Type Priority Associated Diagnoses Date /Time CULTURE, URINE, QUANTITATIVE Lab Routine Kidney stone Preoperative cardiovascular examination 05/04/2023 1:41 PM EDT EXTRA TUBES Lab Routine 05/04/2023 1: 41 PM EDT EXTRA URINE Lab Routine 05/04/2023 1: 41 PM EDT Scheduled Procedures Name Priority Associated Diagnoses Date/Ti me CYSTOURETHROSCOPY URETEROSCO PY WITH LITHOTRIPSY AND STENT INSERTION Kidney stone 05/11/2023 10:10 AM EDT CYSTOURETHROSCOPY WITH FOREI GN BODY REMOVAL SIMPLE Kidney stone 05/25/2023 8:18 AM EDT COLONOSCOPY FLEXIBLE PROXIMA L DIAGNOSTIC [...] 07/05/2022 07/05/2021, , 07/05/2021, Additional history exists Albumin/Creatinine Ratio 12/27/2022 022, 11/07/2020, 10/18/2019, Additional history exists Diabetic Foot Exam 12/27/2022 12/27/2021, 0 03/08/2021, 03/07/2020, Additional history exists Mammogram 03/04/2023 03/04/2022, 05/18, 02/13/2017, Additional history exists Influenza Vaccine (FLU shot) (#1) 2023 07/01/2022, 06/11/2021, 07/09/2020, Additional history exists HbA1c 09/11/2023 03/11/2023, 02/14, 08/21/2022, Additional history exists O2 ASSESSMENT COMPLETED IN PAST YEAR FOR COPD 03/03/2024 03/03/2023 GFR 03/18/2024 03/18/2023, 02/15, 03/09/2023, Additional history exists DTaP,Tdap,and Td Vaccines (3 - Td or Tdap) 02/24/2027 02/24/2017, 03/02/2008 Lipid Panel 03/11/2028 03/11/2023, 05/18, 03/08/2021, Additional history exists Colonoscopy 06/06/2031 06/06/2021 Colorectal Cancer Screening 06/06/2031 Pneumococcal Vaccine: 65+ Years Completed 02/24/2017, 02/04/2016, 08/07/2005 Zoster Vaccines Completed 05/27/2020, 02/15, 07/30/2012 VITAMIN D LEVEL ONCE IN A LIFETIME-USE SMARTSET# [id number] Completed 06/12/2022, 01/31/2019, 04/06/2018, Additional history exists GARDASIL-HPV IMMUNIZATION SERIES Aged [...] Diagnoses Diagnosis Kidney stone Calculus of kidney Preoperative cardiovascular examination Pre-operative cardiovascular examination Kidney stone Calculus of kidney Kidney stone Calculus of kidney documented in this encounter Advance Directives Latest Code Status on File Code Status Date Activated Date Inactivated Comments Full Code 03/02/2023 11:58 PM 03/09/2023 6:38 PM This order reflects the patients wishes and were consensually agreed upon. Question Answer Comments Discussion of Advance Directives occurred with: Patient Care Teams Commercial Construction Project Manager Relationship Specialty Start Date End Date Moreno العلي MD [address] [place] [address] PCP - General Family Medicine 06/11/21 documented as of this encounter
--- OUTSIDE RECORDS SUMMARY | 2023-07-17 07:49 | External Medical Summary | Summary of Care ---
Author Name Unknown Organization [facility] Address [address] [place] [address] Phone [phone] Care Team Providers Care Primary Care Pediatrician Name Role Phone Moreno العلي MD Primary Care Provider [phone] Reason for Visit * Reason Comments Outpatient Testing Encounter Details Date Type Department Care Team Description 05/04/2023 Laboratory Laboratory, [facility] [address] [place] [id number] [facility], Lab [address] [place] [address] Kidney stone; Preoperative cardiovascular examination [...] hemoglobin A1c goal of less than 7.0% ([facility]) Take by mouth 1 Tablet [...] OPD, group C, by GOLD 2017 classification ([facility]) inhale 1 puff by mouth [...] [address] [place] [address] [place] [address] 05/11/2023 Surgery Surgery Chris Aldridge Jr., MD 27 [facility] [place] [address] [place] [address] CYSTOURETHROSCOPY URETEROSCOPY WITH LITHOTRIPSY AND STENT INSERTION 05/25/2023 Hospital Encounter Surgery Chris Aldridge Jr., MD [address] [place] [address] [place] [address] 05/25/2023 Surgery Surgery Chris Aldridge Jr., MD [address] [place] [address] [place] [address] CYSTOURETHROSCOPY WITH FOREIGN BODY REMOVAL SIMPLE 09/28/2023 Office Visit Family Medicine Moreno العلي MD [address] [place] [address] Pending Results Name Type Priority Associated Diagnoses [...] D LEVEL ONCE IN A LIFETIME-USE SMARTSET# [id number] Completed 06/12/2022, 01/31/2019, 04/06/2018, Additional history exists [...] Advance Directives occurred with: Patient Care Teams Primary Care Pediatrician Relationship Specialty Start Date End Date Moreno العلي MD [address] [place] [address] PCP - General Family Medicine 06/11/21 documented as of this encounter
--- OUTSIDE RECORDS SUMMARY | 2023-07-17 07:49 | External Medical Summary ---
Author Name Unknown Address Unknown Organization [id number]:LABORATORY [facility] - [address] [place] [id number] Laboratory Report Ordering Provider Test Date Status DAVID JEONG JR 05/04/2023 13:41:40 Final Observation Date Value Abnormality Reference (Units) Status Bacteria identified in Specimen by Culture 05/04/2023 13:41:40 No significant growth Final Test: Culture, Urine, Quanti tative
Specimen Source: Urine, Clean Catch
Specimen Type: Urine
Specimen Date: 05/04/2023 1:41 PM
Result Date: 05/05/2023 1:27 PM
Result Status: Final result
Resulting Lab: LAB[facility]ATORY [facility]
[address]
[facility] [address]

CULTURE

No significant growth

null Performing Location LABORATORY [facility] - [address] [facility] [address]
--- OUTSIDE RECORDS SUMMARY | 2023-07-17 07:49 | External Medical Summary ---
Author Name Unknown Address Unknown Organization : Laboratory Report Ordering Provider Test Date Status DAVID JEONG JR 05/11/2023 08:29:01 Final Observation Date Value Abnormality Reference (Units ) Status Glucose Point of Care 05/11/2023 08:29:01 97 70-120 (mg/dL) Final Performing Location
--- OUTSIDE RECORDS SUMMARY | 2023-07-17 07:49 | External Medical Summary ---
Author Name Unknown Address Unknown Organization [id number]:LABORATORY [facility] - [address] [place] [address] Laboratory Report Ordering Provider Test Date Status BABAR BETANCOURT 05/04/2023 13:41:00 Final Normal: <30 mg/g creatinine< br/>High: 30-300 mg/g creatinine
Very High: >300 mg/g creatinine
Nephrotic: >2200 mg/g creatinine Observation Date Value Abnormality Reference (Units ) Status Albumin, Urine 05/04/2023 13:41:00 10.90 (mg/dL) Final Creatinine, Urine 05/04/2023 13:41:00 32 (mg/dL) Final Albumin/Creatinine [Mass Ratio] in Urine 05/04/2023 13:41:00 341 Above high normal <30 (mg/g Creat) Final Performing Location LABORATORY [facility] - [address] [place] [address]
--- OUTSIDE RECORDS SUMMARY | 2023-07-17 07:49 | External Medical Summary | Summary of Care ---
Author Name Unknown Organization [facility] Address [address] [place] [address] Phone [phone] Care Team Providers Care Mobility Scooter Repairer Name Role Phone Moreno العلي MD Primary Care Provider [phone] Reason for Visit * Reason Onset Date Comments Referral 04/24/2023 Encounter Details Date Type Department Care Team Description 04/24/2023 [facility]phone Pharm[facility], [facility] [address] [facility] [address] [facility] [address] Referral Allergies Active Allergy Reactions Severity Noted Date Comments Metformin Nausea/vomiting Medium 11/07/2020 Nsaids 01/07/2005 Prednisone 12/26/2013 ? Hives Worries about blood sugar elevation Sulfa Antibiotics 12/26/2013 hives Tramadol Other (Please comment) 02/20/2014 Urine retention documented as of this encounter (statuses as of 04/24/2023) Medications Medication Sig Dispensed Refills Start Date [...] hemoglobin A1c goal of less than 7.0% ([facility]) Take by mouth 1 Tablet in the morning. 90 Tablet 3 12/27/2021 Active LORazepam 0.5 MG Oral Tablet (Ativan) Take by mouth 1 Tablet every 8 hours as needed for Anxiety. 30 Tablet 0 03/14/2022 Active Vitamin B-12 1000 MCG Oral Tablet Take by mouth 1 Tablet in the morning. 90 Tablet 0 06/16/2022 Active Docusate Sodium 100 MG Oral Capsule (Colace) [...] and 1 Tablet before bedtime. 180 Tablet 09/10/2022 Active buPROPion HCl ER (XL) 150 MG Oral Tablet Extended Release 24 Hour (Wellbutrin XL) Take 1 Tablet by mouth in the morning. 90 Tablet 09/10/2022 Active Losartan Potassium 50 MG Oral Tablet (Cozaar) Take 1.5 Tablets by mouth in the morning. 135 Tablet 09/10/2022 Active Montelukast Sodium 10 MG Oral Tablet (Singulair) Take 1 Tablet by mouth in the morning. 90 Tablet 09/10/2022 Active Alendronate Sodium 70 MG Oral Tablet (Fosamax)Indications :Osteoporosis 1 tablet weekly 12 Tablet 09/10/2022 Active Amitriptyline HCl 10 MG Oral Tablet (Elavil)Indications: Spinal stenosis of lumbar region without neurogenic claudication take 1 tablet by mouth at bedtime 90 Tablet 09/10/2022 Active Pantoprazole Sodium 40 MG Oral Tablet Delayed Release (Protonix) TAKE 1 TABLET TWICE DAILY 30 MINUTES BEFORE BREAKFAST AND DINNER 180 Tablet 09/10/2022 Active rOPINIRole HCl 3 MG Oral Tablet TAKE 1 TABLET BY MOUTH AT BEDTIME. 1-3 HOURS BEFORE BEDTIME WITH FOOD FOR RESTLESS LEGS 90 Tablet 09/10/2022 Active Fluticasone-Salmeter ol 250-50 MCG/ACT Inhalation Aerosol Powder Breath Activated (Advair Diskus)Indications:C OPD, group C, by GOLD 2017 classification ([facility]) inhale 1 puff by mouth and INTO [...] as of this encounter (statuses as of 04/24/2023) Active Problems Problem Noted Date Depression with [...] as of this encounter (statuses as of 04/24/2023) Resolved Problems Problem Noted Date Resolved Date [...] as of this encounter (statuses as of 04/24/2023) Immunizations Name Administration Dates Next Due COVID-19 [...] encounter Miscellaneous Notes * Telephone Encounter - Concepción Amaro RPh - 04/24/2023 4:02 PM EDT Referral reviewed and is appropriate. Please schedule. Initial appt length: 60 minutes Patient referred to [facility] clinic for Pain Management Regimen optimization on behalf of Dr. العلي. Referral reviewed and relevant pre-visit information listed below: Pain Follow-up as scheduled. Concepción Amaro RPh 04/24/2023, 4:02 PM * Telephone Encounter - DENILSON Coronel Tech - 04/24/2023 3:53 PM EDT Pharmacist Medication Therapy Management: Minimum frequency patient should be seen in person for medication management: as appropriate per clinical condition and patient status By my signature, I understand that my patient Anika Salvador will have her medication therapy managedby the [facility] Medication Therapy [facility] ([facility]) per established policies, procedures, and protocols. I also certify that this referral may serve as an initiation of service for the management of drug therapy in the above noted patient. [facility] providers will be responsible for scheduling patient visits, obtaining appropriate laboratory studies, and adjusting medication management therapy per patient's need, in addition to those roles spelled out in the clinic policy, procedures, and drug management protocols. I understand that the service provided by the [facility] Clinic is voluntary and have informed patient that they can refuse the service at their discretion. I am aware that the [facility] Clinic will provide me with a copy of the patient encounter via my [employer]. I authorize the [facility] Clinic to carry out these activities on my behalf. I consider this program to be a necessary part of the patient's medical care. Yanci Mcintosh LPN Status History Encounter View Encounter Order Questions Question Answer Referral Priority Within 30 days (routine) Department: Primary Care Reason for Referral: Pain Pain Diagnosis: Back pain Pain Treatment Options: Opioids and/or Non-opioids Does patient have a signed BONY? This is required for patients on opioids Yes Has patient completed a Urine Drug Screen in the past 3 months? This is required for patients on opioids Yes Pain Treatment Goal: Med Optimization documented in this encounter Plan of Treatment Upcoming Encounters Date Type Specialty Care Team Description 05/11/2023 Hospital Encounter Surgery Chris Aldridge Jr., MD [address] [place] [place] [address] 05/11/2023 Surgery Surgery Chris Aldridge Jr., MD [address] [place] [place] [address] CYSTOURETHROSCOPY URETEROSCOPY WITH LITHOTRIPSY AND STENT INSERTION 05/25/2023 Hospital Encounter Surgery Chris Aldridge Jr., MD [address] [place] [place] [address] 05/25/2023 Surgery Surgery Chris Aldridge Jr., MD [address] [place] [place] [address] CYSTOURETHROSCOPY WITH FOREIGN BODY REMOVAL SIMPLE 09/28/2023 Office Visit Family Medicine Moreno العلي MD [address] [place] [address] Scheduled Procedures Name Priority Associated Diagnoses Date/Ti [...] D LEVEL ONCE IN A LIFETIME-USE SMARTSET# [id number] Completed 06/12/2022, 01/31/2019, 04/06/2018, Additional history exists [...] Advance Directives occurred with: Patient Care Teams Mobility Scooter Repairer Relationship Specialty Start Date End Date Moreno العلي MD [address] [place] [address] PCP - General Family Medicine 06/11/21 documented as of this encounter
--- OUTSIDE RECORDS SUMMARY | 2023-07-17 07:49 | External Medical Summary | Summary of Care ---
Author Name Unknown Organization [facility] Address [address] [place] [address] Phone [phone] Care Team Providers Care Tire Center Manager Name Role Phone Meaghan Wilson MD Primary Care Provider [phone] Reason for Visit * Reason Comments eRx-Medication Refill Encounter Details Date Type Department Care Team Description 04/21/2023 Refill Family Practice [facility] [address] [place] [address] Meaghan Wilson MD [email or web address] [place] [id number] Electrolyte and fluid disorder Allergies Active Allergy Reactions Severity Noted Date Comments Metformin Nausea/vomiting Medium 11/07/2020 Nsaids 01/07/2005 Prednisone 12/26/2013 ? Hives Worries about blood sugar elevation Sulfa Antibiotics 12/26/2013 hives Tramadol Other (Please comment) 02/20/2014 Urine retention documented as of this encounter (statuses as of 04/22/2023) Medications Medication Sig Dispensed Refills Start Date [...] 3 DOSES 50 Tablet 5 1 Active [facility]S D3 50 MCG (1999 [place]) Oral Capsule (Cholecalciferol)In dications:Vitamin D deficiency Take by mouth 1 Capsule in the morning. 90 Capsule 3 2 Active Aspirin 81 MG Oral Tablet Delayed Release (Aspirin Low Dose)Indications:Dy slipidemia, goal LDL below 100,Type 2 diabetes mellitus with hemoglobin A1c goal of less than 7.0% ([facility]) Take by mouth 1 Tablet in the morning. 90 Tablet 3 2 Active LORazepam 0.5 MG Oral Tablet (Ativan) Take by mouth 1 Tablet every 8 hours as needed for Anxiety. 30 Tablet 0 2 Active Vitamin B-12 1000 MCG Oral Tablet Take by mouth 1 Tablet in the morning. 90 Tablet 0 2 Active Docusate Sodium 100 MG Oral Capsule [...] the morning. 90 Tablet 3 3 Active Baclofen 10 MG Oral Tablet (Lioresal) Take 1 Tablet by mouth in the morning and 1 Tablet before bedtime. 180 Tablet 3 3 Active buPROPion HCl ER [...] C, by GOLD 2017 classification ([facility]) inhale 1 puff by mouth [...] A MEAL 90 Tablet 1 3 Active oxyCODONE HCl 10 MG Oral Tablet (Roxicodone)Indicat ions:Controlled substance agreement signed,Spinal stenosis of lumbar region without neurogenic claudication Take 1 Tablet by mouth every 4 hours as needed for Pain, Severe. 60 Tablet 0 3 Active Ondansetron HCl 4 MG Oral Tablet (Zofran) TAKE 2 TABLETS EVERY 8 HOURS NEEDED FOR NAUSEA 90 Tablet 1 3 Active Meclizine HCl 12.5 MG Oral Tablet (Antivert) TAKE 1 TABLET THREE TIMES DAILY NEEDED FOR DIZZINESS 90 Tablet 1 3 Active Potassium Chloride ER 10 MEQ Oral Tablet Extended ReleaseIndications: Electrolyte and fluid disorder TAKE 1 TABLET IN THE MORNING AND TAKE 1 TABLET BEFORE BEDTIME 180 Tablet 1 3 Active Potassium Chloride ER 10 MEQ Oral Tablet Extended ReleaseIndications: Electrolyte and fluid disorder Take 1 Tablet by mouth in the morning and 1 Tablet before bedtime. 180 Tablet 1 3 04/22/20 23 Discontinued documented as of this encounter (statuses as of 04/22/2023) Active Problems Problem Noted Date Depression with [...] as of this encounter (statuses as of 04/22/2023) Resolved Problems Problem Noted Date Resolved Date [...] as of this encounter (statuses as of 04/22/2023) Immunizations Name Administration Dates Next Due COVID-19 [...] encounter Miscellaneous Notes * Telephone Encounter - Evangelina Hayes RPh - 04/22/2023 11:47 AM EDTSigned Prescriptions: Disp Refills Potassium Chloride ER 10 MEQ Oral Tablet E*180 Ta*1 Sig: TAKE 1 TABLET IN THE MORNING AND TAKE 1 TABLET BEFORE BEDTIMEAuthorizing Provider: MEAGHAN WILSON User: EVANGELINA HAYES documented in this encounter Plan of Treatment Upcoming Encounters Date Type Specialty Care Team Description 05/11/2023 Hospital Encounter Surgery Chris Aldridge Jr., MD [address] [place] [place] [address] 05/11/2023 Surgery Surgery Chris Aldridge Jr., MD [address] [place] [address] [place] [address] CYSTOURETHROSCOPY URETEROSCOPY WITH LITHOTRIPSY AND STENT INSERTION 05/25/2023 Hospital Encounter Surgery Chris Aldridge Jr., MD [address] [place] [address] [place] [address] 05/25/2023 Surgery Surgery Chris Aldridge Jr., MD [address] [place] [place] [address] CYSTOURETHROSCOPY WITH FOREIGN BODY REMOVAL SIMPLE 09/28/2023 Office Visit Family Medicine Meaghan Wilson MD [address] [place] [address] Scheduled Procedures Name Priority Associated Diagnoses Date/Ti me CYSTOURETHROSCOPY URETEROSCO PY WITH LITHOTRIPSY AND STENT INSERTION Kidney stone 05/11/2023 11:26 AM EDT CYSTOURETHROSCOPY WITH FOREI GN BODY [...] 01/12/2021 11/17/2020, 10/20/2020 Cologuard 11/04/2021 11/04/2018 Depression Screening, Annual for Pts 12 and Over 03/08/2022 03/08/2021 DIABETES-EYE EXAM 07/05/2022 07/05/2021, , [...] D LEVEL ONCE IN A LIFETIME-USE SMARTSET# [id number] Completed 06/12/2022, 01/31/2019, 04/06/2018, Additional history exists [...] as of this encounter Visit Diagnoses Diagnosis Electrolyte and fluid disorder Electrolyte and fluid disorders not elsewhere classified Kidney stone Calculus of kidney Kidney stone Calculus of kidney documented in this encounter Advance Directives Latest Code Status on File Code Status Date Activated Date Inactivated Comments Full Code 03/02/2023 11:58 PM 03/09/2023 6:38 PM This order reflects the patients wishes and were consensually agreed upon. Question Answer Comments Discussion of Advance Directives occurred with: Patient Care Teams Tire Center Manager Relationship Specialty Start Date End Date Meaghan Wilson MD [address] [place] [address] PCP - General Family Medicine 06/11/21 documented as of this encounter
--- OUTSIDE RECORDS SUMMARY | 2023-07-17 07:49 | External Medical Summary ---
Author Name Unknown Address Unknown Organization : Laboratory Report Ordering Provider Test Date Status DAVID JEONG JR 05/11/2023 10:35:26 Final Observation Date Value Abnormality Reference (Units ) Status Glucose Point of Care 05/11/2023 10:35:26 117 70-120 (mg/dL) Final Performing Location
--- OUTSIDE RECORDS SUMMARY | 2023-07-17 07:49 | External Medical Summary | Summary of Care ---
Author Name Unknown Organization [facility] Address [address] [place] [address] Phone [phone] Care Team Providers Care Glue Maker Name Role Phone Moreno العلي MD Primary Care Provider [phone] [phone] Reason for Visit * Reason Comments Medication Refill Encounter Details Date Type Department Care Team Description 05/04/2023 Refill Family Practice [facility] [address] [place] [address] Moreno العلي MD [address] [place] [address] Type 2 diabetes mellitus with hemoglobin A1c goal of less than 8.0% ([facility])*; Controlled substance agreement signed; Spinal stenosis of lumbar region without neurogenic claudication Allergies Active Allergy Reactions Severity Noted Date [...] as of this encounter (statuses as of 05/05/2023) Medications Medication Sig Dispensed Refills Start Date [...] 5 07/23/2021 Active [facility]S D3 50 MCG (1999) Oral Capsule (Cholecalciferol)In dications:Vitamin D deficiency Take [...] GOLD 2017 classification ([facility]) inhale 1 puff by mouth and [...] Pain, Severe. 60 Tablet 0 05/05/2023 Active oxyCODONE HCl 10 MG Oral Tablet (Roxicodone)Indicat ions:Controlled substance agreement signed,Spinal stenosis of lumbar region without neurogenic claudication Take 1 Tablet by mouth every 4 hours as needed for Pain, Severe. 60 Tablet 0 04/07/2023 05/04/20 23 Discontinu ed(Refill) documented as of this encounter (statuses as of 05/05/2023) Active Problems Problem Noted Date Depression with [...] as of this encounter (statuses as of 05/05/2023) Resolved Problems Problem Noted Date Resolved Date [...] as of this encounter (statuses as of 05/05/2023) Immunizations Name Administration Dates Next Due COVID-19 [...] encounter Miscellaneous Notes * Telephone Encounter - Jim Toth DO - 05/05/2023 4:22 PM EDTSigned Prescriptions: Disp Refills oxyCODONE HCl 10 MG Oral Tablet (Roxicodon*60 Tab*0 Sig: Take 1 Tablet by mouth every 4 hours as needed for Pain, Severe.Authorizing Provider: JIM TOTH----- * Telephone Encounter - Jim Toth DO - 05/05/2023 4:22 PM EDTSigned Prescriptions: Disp Refills oxyCODONE HCl 10 MG Oral Tablet (Roxicodon*60 Tab*0 Sig: Take 1 Tablet by mouth every 4 hours as needed for Pain, Severe.Authorizing Provider: JIM TOTH----- * Telephone Encounter - Jazmyn Farris CPhT - 05/05/2023 3:44 PM EDT Patient asking high priority stating she is in a lot of pain. Patient calling to check on status of refill request. Caller can be reached at [phone]. Thank you, Shelby Farris Sales Planning Coordinator I [facility] (Formerly [facility]) 05/05/2023,3:44 PM * Telephone Encounter - Phi White [facility] - 05/05/2023 8:38 AM EDT Pending Prescriptions: Disp Refills oxyCODONE HCl 10 MG Oral Tablet (Roxicodon*60 Tab*0 Sig: Take 1 Tablet by mouth every 4 hours as needed for Pain, Severe. * Telephone Encounter - Phi White [facility] - 05/05/2023 8:35 AM EDT I have reviewed the patients controlled substance dispensing history in the Prescription Drug Monitoring Program in compliance with the [facility] regulations before prescribing a controlled substance. PDMP checked on 05/05/2023. Pending Prescriptions: Disp Refills oxyCODONE HCl 10 MG Oral Tablet (Roxicodo*60 Tab*0 Sig: Take 1 Tablet by mouth every 4 hours as needed for Pain, Severe. Last Visit: 03/27/2023 (in office), Visit date not found (telemedicine) Next Visit: 09/28/2023 Date medication was last filled: 04/07 Date medication is due for refill: 04/15 Pharmacy: [facility] Is this request for a controlled substance? Yes and Urine Drug Screen Not completed Toxicology results: Results for orders placed or performed in visit on 08/31/20 OPIOIDS/BENZO COMPLIANCE MONITORING W/INTERP Result Value COMPLIANCE INTERP (NOTE) URINE DRUG SCREEN RESULT Amphetamine NEGATIVE Benzodiazepines NEGATIVE Cannabinoids NEGATIVE Cocaine Metabolite NEGATIVE HYDROCODONE NEGATIVE METHADONE METABOLITE NEGATIVE Morphine / Codeine NEGATIVE OXYCODONE REFER TO CONFIRMATION RESULT (A) COMMENT THE ABOVE SCREENING RESULTS ARE PRESUMPTIVE AND CAN ONLY BE USED FOR MEDICAL PURPOSES. CONFIRMATORY TESTING IS AVAILABLE UPON REQUEST. Cutoff Concentration URINE VALID INTERP NORMAL CREATININE KARENA 21 *Note: Due to a large number of results and/or encounters for the requested time period, some results have not been displayed. A complete set of results can be found in Results Review. Please approve if appropriate. Thanks, Dustin CuevasD Clinical Pharmacist [facility] ([facility]) (formerly [facility]) [phone] 05/05/2023,8:36 AM documented in this encounter Plan of Treatment Upcoming Encounters Date Type Specialty Care Team Description 05/11/2023 Hospital Encounter Surgery Chris Aldridge Jr., MD [address] [place] [address] [place] [id number] 05/11/2023 Surgery Surgery Chris lAdridge Jr., MD [address] [place] [address] CYSTOURETHROSCOPY URETEROSCOPY WITH LITHOTRIPSY AND STENT INSERTION 05/25/2023 Hospital Encounter Surgery Chris Aldridge Jr., MD [address] [place] [place] [address] 05/25/2023 Surgery Surgery Chris Aldridge Jr., MD [address] [place] [address] [place] [address] CYSTOURETHROSCOPY WITH FOREIGN BODY REMOVAL SIMPLE 09/28/2023 Office Visit Family Medicine Moreno العلي MD [address] [place] [address] Scheduled Procedures Name Priority Associated Diagnoses Date/Ti me CYSTOURETHROSCOPY URETEROSCO PY WITH LITHOTRIPSY AND STENT INSERTION Kidney stone 05/11/2023 9:04 AM EDT CYSTOURETHROSCOPY WITH FOREI GN BODY [...] 05/04/2024 023, 12/27/2021, 11/07/2020, Additional history exists DTaP,Tdap,and Td Vaccines (3 - Td or Tdap) 02/24/2027 02/24/2017, 03/02/2008 Lipid Panel 03/11/2028 03/11/2023, 05/18, 03/08/2021, Additional history exists Colonoscopy 06/06/2031 06/06/2021 Colorectal Cancer Screening 06/06/2031 Pneumococcal Vaccine: 65+ Years Completed 02/24/2017, 02/04/2016, 08/07/2005 Zoster Vaccines Completed 05/27/2020, 02/15, 07/30/2012 VITAMIN D LEVEL ONCE IN A LIFETIME-USE SMARTSET# [id number] Completed 06/12/2022, 01/31/2019, 04/06/2018, Additional history exists [...] Not on filedocumented as of this encounter Results * (ABNORMAL) ALBUMIN / CREATININE RATIO, URINE (05/04/2023 1:41 PM EDT) Albumin, Random Urine 10.90 mg/dL 05/05/2023 9:13 AM EDT LAB[facility] Creatinine, Random Urine 32 mg/dL 05/05/2023 9:13 AM EDT LABORATORY GL Albumin / Creatinine Ratio, Urine 341(H) <30 mg/g Creat 05/05/2023 9:13 AM EDT LABORATORY GL Urine Urine specimen / Unknown 05/04/2023 1:41 PM EDT 05/04/2023 1:52 PM EDT Narrative [facility] - 05/05/2023 9:13 AM EDT Normal: <30 mg/g creatinine High: 30-300 mg/g creatinine Very High: >300 mg/g creatinine Nephrotic: >2200 mg/g creatinine Phi White [facility] LAB URINE ORDE [facility] [address] [facility] [place] [id number] documented in this encounter Visit Diagnoses Diagnosis Type 2 diabetes mellitus with hemoglobin A1c goal of less than 8.0% ([facility])- Primary Controlled substance agreement signed Encounter for long-term (current) use of other medications Spinal stenosis of lumbar region without neurogenic claudication Spinal stenosis, lumbar region, without neurogenic claudication Kidney stone Calculus of kidney Kidney stone Calculus of kidney documented in this encounter Advance Directives Latest Code Status on File Code Status Date Activated Date Inactivated Comments Full Code 03/02/2023 11:58 PM 03/09/2023 6:38 PM This order reflects the patients wishes and were consensually agreed upon. Question Answer Comments Discussion of Advance Directives occurred with: Patient Care Teams Glue Maker Relationship Specialty Start Date End Date Moreno العلي MD [address] [facility] [place] [address] PCP - General Family Medicine 06/11/21 documented as of this encounter
--- OUTSIDE RECORDS SUMMARY | 2023-07-17 07:49 | External Medical Summary | Summary of Care ---
Author Name Unknown Organization [facility] Address [address] [place] [address] Phone [phone] Care Team Providers Care Tacking Machine Operator Name Role Phone Moreno العلي MD Primary Care Provider [phone] Reason for Visit * Reason Onset Date Comments Pre-Op Testing 04/29/2023 Encounter Details Date Type Department Care Team Description 04/29/2023 Telephone Pre Surgery Center, [facility] [address] [place] [address] Moreno Garcia MD [address] [place] [address] Pre-Op Testing Allergies Active Allergy Reactions Severity Noted Date [...] as of this encounter (statuses as of 04/29/2023) Medications Medication Sig Dispensed Refills Start Date [...] CVS D3 50 MCG (1999) Oral Capsule (Cholecalciferol)Ind ications:Vitamin D deficiency Take by mouth 1 Capsule in the morning. 90 Capsule 3 12/27/2021 Active Aspirin 81 MG Oral Tablet Delayed Release (Aspirin Low Dose)Indications:Dys lipidemia, goal LDL below 100,Type 2 diabetes mellitus with hemoglobin A1c goal of less than 7.0% ([facility]) Take by mouth 1 Tablet in the [...] as of this encounter (statuses as of 04/29/2023) Active Problems Problem Noted Date Depression with [...] as of this encounter (statuses as of 04/29/2023) Resolved Problems Problem Noted Date Resolved Date [...] as of this encounter (statuses as of 04/29/2023) Immunizations Name Administration Dates Next Due COVID-19 [...] encounter Miscellaneous Notes * Telephone Encounter - Jojo Camargo RN - 04/29/2023 11:13 AM EDT Spoke with Dr. Garcia to review most recent EKG. He is requesting a repeat EKG prior to surgery. Order placed and patient notified. She states she will have it completed prior to surgery. documented in this encounter Plan of Treatment Upcoming Encounters Date Type Specialty Care Team Description 05/11/2023 Hospital Encounter Surgery Chris Aldridge Jr., MD [address] [place] [address] [place] [address] 05/11/2023 Surgery Surgery Chris Aldridge Jr., MD [address] [facility] [address] [place] [address] CYSTOURETHROSCOPY URETEROSCOPY WITH LITHOTRIPSY AND STENT INSERTION 05/25/2023 Hospital Encounter Surgery Chris Aldridge Jr., MD [address] [place] [address] 05/25/2023 Surgery Surgery Chris Aldridge Jr., MD [address] [place] [address] CYSTOURETHROSCOPY WITH FOREIGN BODY REMOVAL SIMPLE 09/28/2023 Office Visit Family Medicine Moreno العلي MD [address] [place] [address] Scheduled Orders Name Type Priority Associated Diagnoses Orde r Schedule EKG EKG Routine Kidney stone Expected: 05/06/2023 (Approximate), Expi res: 05/29/2024 Scheduled Procedures Name Priority Associated Diagnoses Date/Ti [...] D LEVEL ONCE IN A LIFETIME-USE SMARTSET# [id number] Completed 06/12/2022, 01/31/2019, 04/06/2018, Additional history exists [...] of this encounter Visit Diagnoses Diagnosis Kidney stone- Primary Calculus of kidney Kidney stone Calculus of kidney Kidney stone Calculus of kidney documented in this encounter Advance Directives Latest Code Status on File Code Status Date Activated Date Inactivated Comments Full Code 03/02/2023 11:58 PM 03/09/2023 6:38 PM This order reflects the patients wishes and were consensually agreed upon. Question Answer Comments Discussion of Advance Directives occurred with: Patient Care Teams Tacking Machine Operator Relationship Specialty Start Date End Date Moreno العلي MD [address] [place] [address] PCP - General Family Medicine 06/11/21 documented as of this encounter
--- OUTSIDE RECORDS SUMMARY | 2023-07-17 07:49 | External Medical Summary ---
Author Name Unknown Address Unknown Organization : Laboratory Report Ordering Provider Test Date Status DAVID JEONG JR 05/11/2023 10:19:00 Final left renal calculus Observation Date Value Abnormality Reference (Units ) Status SPECIMEN SOURCE 05/11/2023 10:19:00 LT REANL Final COMPONENT 1 05/11/2023 10:19:00 SEE BELOW Final Calcium Oxalate Dihydrate (W eddellite) 20%
Calcium Oxalate Monohydrate (Whewellite) 80%
This test was developed and its analytical performance
characteristics have been determined by [facility]. It has not been cleared or approved by the
FDA. This assay has been validated pursuant to the CLIA
regulations and is used for clinical purposes. COMPONENT 2 05/11/2023 10:19:00 DNR Final STONE WEIGHT 05/11/2023 10:19:00 0.014 (g) Final Test performed by [facility] [employer] [facility]
[id number] [facility]
[place] [address]

Maintenance Technician 3Rd Shift: FILOMENA ROSS M.D.
Test Reported by [facility],
[facility],
[address] [place], [place]
Wero Velazquez M.D., Ph.D., Director of Laboratories
, CLIA [id number] Performing Location
--- OUTSIDE RECORDS SUMMARY | 2023-07-17 07:49 | External Medical Summary | Summary of Care ---
Author Name Unknown Organization [facility] Address [address] [place] [address] Phone [phone] Care Team Providers Care Log Snaker Name Role Phone Moreno العلي MD Primary Care Provider [phone] Encounter Details Date Type Department Care Team Description 05/04/2023 Hospital Encounter Cardiac Studies, [facility] [address] [place] [address] Glh, Sat Act Instructor [address] [place], [place] [id number] EKG Report Allergies Active Allergy Reactions Severity Noted Date [...] goal of less than 7.0% ([facility]) Take by mouth 1 Tablet [...] No 03/04/2023 documented as of this encounter Procedure Notes * Peña Reyes DO - 05/04/2023 1:06 PM EDTAssociated Order(s): EKG REASON FOR STUDY: pre -op. most recent EKG showing Afib RVR CONCLUSIONS: Normal sinus rhythm with sinus arrhythmia Normal ECG When compared with ECG of 06-MAR-2023 03:27, Sinus rhythm has replaced Atrial fibrillation Ventricular Rate: 79 Atrial Rate: 79 CT Interval: 194 QRS Duration: 84 QT/QTc: 360/412 ms P-R-T [place]: 52 : 44 : 57 degrees documented in this encounter Plan of Treatment Upcoming Encounters Date Type Specialty Care Team Description 05/11/2023 Hospital Encounter Surgery Chris Aldridge Jr., MD [address] [facility] [place] [place] [address] 05/11/2023 Surgery Surgery Chris Aldridge Jr., MD [address] [place] [address] [place] [address] CYSTOURETHROSCOPY URETEROSCOPY WITH LITHOTRIPSY AND STENT INSERTION 05/25/2023 Hospital Encounter Surgery Chris Aldridge Jr., MD [address] [place] [address] [place] [address] 05/25/2023 Surgery Surgery Chris Aldridge Jr., MD [address] [place] [place] [address] CYSTOURETHROSCOPY WITH FOREIGN BODY REMOVAL SIMPLE 09/28/2023 Office Visit Family Medicine Moreno العلي MD [address] [place] [address] Scheduled Procedures Name Priority Associated Diagnoses Date/Ti [...] D LEVEL ONCE IN A LIFETIME-USE SMARTSET# [id number] Completed 06/12/2022, 01/31/2019, 04/06/2018, Additional history exists [...] Procedure Name Priority Date/Time Associated Diagnosis Comments HC ECG TRACING ONLY Routine 05/04/2023 1 :06 PM EDT Kidney stone documented in this encounter Results * EKG (05/04/2023 1:06 PM EDT) 05/04/2023 1:06 PM EDT Procedure Note Peña Reyes, - 05/04/2023 1:06 PM EDT REASON FOR STUDY: pre -op. most recent EKG showing Afib RVR CONCLUSIONS: Normal sinus rhythm with sinus arrhythmia Normal ECG When compared with ECG of 06-MAR-2023 03:27, Sinus rhythm has replaced Atrial fibrillation Ventricular Rate: 79 Atrial Rate: 79 CT Interval: 194 QRS Duration: 84 QT/QTc: 360/412 ms P-R-T [place]: 52 : 44 : 57 degrees Moreno Garcia MD EKG Performing Organization Address City/State/ZIP Co pr Phone Number [facility] documented in this encounter Visit Diagnoses Diagnosis [...] Advance Directives occurred with: Patient Care Teams Log Snaker Relationship Specialty Start Date End Date Moreno العلي MD [address] [place] [address] PCP - General Family Medicine 06/11/21 documented as of this encounter
--- OUTSIDE RECORDS SUMMARY | 2023-07-17 07:49 | External Medical Summary | Summary of Care ---
Author Name Unknown Organization [facility] Address [address] [place] [address] Phone [phone] Care Team Providers Care Captain Waiter Name Role Phone Meaghan Wilson MD Primary Care Provider [phone] Reason for Referral * Evaluate & Treat - Unlimited Visits (Within 30 days (routine)) - Pending Review Specialty Diagnoses / Procedures Referred By Contmarcos zapata Referred To Contact Pharmacist / Pharmacy Diagnoses Spinal stenosis of lumbar region without neurogenic claudication Meaghan Wilson MD [address] [place] [address] Referral ID Status Reason Start Date Expiration Date Visits Requested Visits Authorized [id number] Pending Review Specialty Services Required 04/19/2023 99 99 Question Answer Referral Priority Within 30 days [...] opioids Yes Pain Treatment Goal: Med Optimization Comments Pharmacist Medication Therapy Management: Minimum frequency patient should be seen in person for medication management: as appropriate per clinical condition and patient status By my signature, I understand that my patient Anika Salvador will have her medication therapy managed by the [facility] Medication Therapy [facility] ([facility]) per established policies, procedures, and protocols. I also certify that this referral may serve as an initiation of service for the management of drug therapy in the above noted patient. [facility] providers will be responsible for scheduling patient visits, obtaining appropriate laboratory studies, and adjusting medication management therapy per patient's need, in addition to those roles spelled out in the clinic policy, procedures, and drug management protocols. I understand that the service provided by the [facility] is voluntary and have informed patient that they can refuse the service at their discretion. I am aware that the [facility] Clinic will provide me with a copy of the patient encounter via my [employer] InBasket. I authorize the [facility] Clinic to carry out these activities on my behalf. I consider this program to be a necessary part of the patient's medical care. Madelyn Mayo LPN Reason for Visit * Reason Onset Date Comments Advice 04/16/2023 Encounter Details Date Type Department Care Team Description 04/16/2023 Telephone Family Practice [facility] [address] [place] [address] Meaghan Wilson MD [address] [place] [address] Advice Allergies Active Allergy Reactions Severity Noted Date Comments Metformin Nausea/vomiting Medium 11/07/2020 Nsaids 01/07/2005 Prednisone 12/26/2013 ? Hives Worries about blood sugar elevation Sulfa Antibiotics 12/26/2013 hives Tramadol Other (Please comment) 02/20/2014 Urine retention documented as of this encounter (statuses as of 04/21/2023) Medications Medication Sig Dispensed Refills Start Date [...] Solution (Proventil)Indicatio ns:COPD, severity to be determined ([facility]) inhale contents of 1 vial ( 3 [...] FOR RESTLESS LEGS 90 Tablet 09/10/2022 Active Potassium Chloride ER 10 MEQ Oral Tablet Extended ReleaseIndications:E lectrolyte and fluid disorder Take 1 Tablet by mouth in the morning and 1 Tablet before bedtime. 180 Tablet 1 11/20/2022 Active Fluticasone-Salmeter ol 250-50 MCG/ACT Inhalation Aerosol [...] FOR DIZZINESS 90 Tablet 1 04/10/2023 Active documented as of this encounter (statuses as of 04/21/2023) Active Problems Problem Noted Date Depression with [...] as of this encounter (statuses as of 04/21/2023) Resolved Problems Problem Noted Date Resolved Date [...] as of this encounter (statuses as of 04/21/2023) Immunizations Name Administration Dates Next Due COVID-19 [...] encounter Miscellaneous Notes * Telephone Encounter - Annalee Ghosh - 04/21/2023 7:09 AM EDT MTM will call to schedule * Addendum Note - Meaghan Wilson MD - 04/19/2023 5:19 PM EDTAddended by: MEAGHAN WILSON on: 04/19/2023 05:19 PM Modules accepted: Orders * Telephone Encounter - Meaghan Wilson MD - 04/19/2023 5:19 PM EDT Referral to MTM signed. Please assist with scheduling. * Addendum Note - Madelyn Mayo LPN - 04/17/2023 4:09 PM EDTAddended by: MADELYN MAYO on: 04/17/2023 04:09 PM Modules accepted: Orders * Telephone Encounter - Madelyn Mayo LPN - 04/17/2023 4:02 PM EDT Called and spoke with pt, states she is unsure what she should do because she has pain all day every day. Pt agreeable to seeing pain management Pended if agreeable * Telephone Encounter - DENILSON Chacko - 04/16/2023 1:18 PM EDT Pt calling upset that she only got a 10 day supply of oxycodone 10 mg. At the last Office Visit pt stated that Would give her a 1 month supply. Pt wants a call back from Dr Wilson please [phone] Thank you, Maria Victoria Rich, park worker supervisor Professor Of Environmental Science II [facility])(Formerly [facility]) 04/16/2023,1:22 PM documented in this encounter Plan of Treatment Upcoming Encounters Date Type Specialty Care Team Description 05/11/2023 Hospital Encounter Surgery Chris Aldridge Jr., MD [address] [place] [address] 05/11/2023 Surgery Surgery Chris Aldridge Jr., MD [address] [place] [address] CYSTOURETHROSCOPY URETEROSCOPY WITH LITHOTRIPSY AND STENT INSERTION 05/25/2023 Hospital Encounter Surgery Chris Aldridge Jr., MD [address] [place] [place] [address] 05/25/2023 Surgery Surgery Chris Aldridge Jr., MD [address] [place] [place] [address] CYSTOURETHROSCOPY WITH FOREIGN BODY REMOVAL SIMPLE 09/28/2023 Office Visit Family Medicine Meaghan Wilson MD [address] [place] [address] Scheduled Procedures Name Priority Associated Diagnoses Date/Ti me CYSTOURETHROSCOPY URETEROSCO PY WITH LITHOTRIPSY AND STENT INSERTION Kidney stone 05/11/2023 11:26 AM EDT CYSTOURETHROSCOPY WITH FOREI GN BODY REMOVAL SIMPLE Kidney stone 05/25/2023 8:18 AM EDT COLONOSCOPY FLEXIBLE PROXIMA L DIAGNOSTIC Recall Family history of colon cancer Scheduled Referrals Name Type Priority Associated Diagnoses Orde r Schedule PHARMACIST MEDS THERAPY MGMT REFERRAL OP Referral Within 30 days (routine) Spinal stenosis of lumbar region without neurogenic claudication Ordered: 04/19/2023 Health Maintenance Due Date Last Done Comments [...] 12/27/2022 022, 11/07/2020, 10/18/2019, Additional history exists DIABETES-FOOT EXAM 12/27/2022 12/27/2021, 0 03/08/2021, 03/07/2020, Additional history [...] D LEVEL ONCE IN A LIFETIME-USE SMARTSET# [id number] Completed 06/12/2022, 01/31/2019, 04/06/2018, Additional history exists [...] Advance Directives occurred with: Patient Care Teams Captain Waiter Relationship Specialty Start Date End Date Meaghan Wilson MD [address] [place] [address] PCP - General Family Medicine 06/11/21 documented as of this encounter
--- OUTSIDE RECORDS SUMMARY | 2023-07-17 07:50 | External Medical Summary | Summary of Care ---
Author Name Unknown Organization [facility] Address [address] [place] [address] Phone [phone] Care Team Providers Care Network Project Manager Name Role Phone Meaghan Wilson MD Primary Care Provider [phone] Reason for Visit * Reason Comments Medication Refill Encounter Details Date Type Department Care Team Description 04/14/2023 Refill Family Practice [facility] [address] [place] [address] Meaghan Wilson MD [address] [place] [phone] Controlled substance agreement signed; Spinal stenosis of lumbar region without neurogenic claudication Allergies Active Allergy Reactions Severity Noted Date Comments Metformin Nausea/vomiting Medium 11/07/2020 Nsaids 01/07/2005 Prednisone 12/26/2013 ? Hives Worries about blood sugar elevation Sulfa Antibiotics 12/26/2013 hives Tramadol Other (Please comment) 02/20/2014 Urine retention documented as of this encounter (statuses as of 04/15/2023) Medications Medication Sig Dispensed Refills Start Date [...] goal of less than 7.0% ([facility]) Take by mouth 1 Tablet in the [...] in the morning. 90 Tablet 09/10/2022 Active Atorvastatin Calcium 40 MG Oral [...] OPD, group C, by GOLD 2017 classification ([facility]) inhale 1 puff by mouth and INTO [...] as of this encounter (statuses as of 04/15/2023) Active Problems Problem Noted Date Depression with [...] as of this encounter (statuses as of 04/15/2023) Resolved Problems Problem Noted Date Resolved Date [...] as of this encounter (statuses as of 04/15/2023) Immunizations Name Administration Dates Next Due COVID-19 [...] Telephone Encounter - Meaghan Wilson MD - 04/15/2023 12:17 PM EDTRefused Prescriptions: Disp Refills oxyCODONE HCl 10 MG Oral Tablet (Roxicodon*60 Tab*0 Sig: Take 1 Tablet by mouth every 4 hours as needed for Pain, Severe. Refused By: MEAGHAN WILSON Reason for Refusal: Other (comment below) * Telephone Encounter - Meaghan Wilson MD - 04/15/2023 12:17 PM EDT No. This is an as needed medication. Not to be taken around the clock. 60 tabs will have to last her a month. * Telephone Encounter - Meaghan Nur [facility] - 04/15/2023 11:17 AM EDT Pending Prescriptions: Disp Refills oxyCODONE HCl 10 MG Oral Tablet (Roxicodon*60 Tab*0 Sig: Take 1 Tablet by mouth every 4 hours as needed for Pain, Severe. * Telephone Encounter - Meaghan Nur [facility] - 04/15/2023 11:16 AM EDT I have reviewed the patients controlled substance dispensing history in the Prescription Drug Monitoring Program in compliance with the [facility] regulations before prescribing a controlled substance. PDMP checked on 04/15/2023. Pending Prescriptions: Disp Refills oxyCODONE HCl 10 MG Oral Tablet (Roxicodo*60 Tab*0 Sig: Take 1 Tablet by mouth every 4 hours as needed for Pain, Severe. Last Visit: 03/27/2023 (in office), Visit date not found (telemedicine) Next Visit: 09/28/2023 Date medication was last filled: 04/07 Date medication is due for refill: 04/16 Pharmacy: [facility] Is this request for a controlled [...] Results Review. Please approve if appropriate. Thanks, Meaghan Nur, PharmD Clinical Pharmacist [facility](formerly telepharmacy) [phone] 04/15/2023, 11:16 AM documented in this encounter Plan of Treatment Upcoming Encounters Date Type Specialty Care Team Description 04/15/2023 Office Visit Urology Chris Aldridge Jr., MD [address] [place] [address] 09/28/2023 Office Visit Family Medicine Meaghan Wilson [...] D LEVEL ONCE IN A LIFETIME-USE SMARTSET# [id number] Completed 06/12/2022, 01/31/2019, 04/06/2018, Additional history exists [...] Advance Directives occurred with: Patient Care Teams Network Project Manager Relationship Specialty Start Date End Date Meaghan Wilson MD [address] [place] [address] PCP - General Family Medicine 06/11/21 documented as of this encounter
--- OUTSIDE RECORDS SUMMARY | 2023-07-17 07:50 | External Medical Summary | Summary of Care ---
Author Name Unknown Organization [facility] Address [address] [place] [address] Phone [phone] Care Team Providers Care Director Of Digital Technology Name Role Phone Moreno العلي MD Primary Care Provider [phone] Reason for Visit * Reason Onset Date Comments Advice 04/16/2023 Encounter Details Date Type Department Care Team Description 04/16/2023 Telephone Family Practice [facility] [address] [place] [address] Moreno العلي MD [address] [place] [address] Advice Allergies Active Allergy Reactions Severity Noted Date Comments Metformin Nausea/vomiting Medium 11/07/2020 Nsaids 01/07/2005 Prednisone 12/26/2013 ? Hives Worries about blood sugar elevation Sulfa Antibiotics 12/26/2013 hives Tramadol Other (Please comment) 02/20/2014 Urine retention documented as of this encounter (statuses as of 04/17/2023) Medications Medication Sig Dispensed Refills Start Date [...] hemoglobin A1c goal of less than 7.0% ([facility]) Take by mouth 1 Tablet in [...] Solution (Proventil)Indicatio ns:COPD, severity to be determined ([facility]) inhale contents of 1 vial ( [...] OPD, group C, by GOLD 2017 classification ([facility]) inhale 1 puff by mouth and [...] as of this encounter (statuses as of 04/17/2023) Active Problems Problem Noted Date Depression with [...] as of this encounter (statuses as of 04/17/2023) Resolved Problems Problem Noted Date Resolved Date [...] as of this encounter (statuses as of 04/17/2023) Immunizations Name Administration Dates Next Due COVID-19 [...] encounter Miscellaneous Notes * Addendum Note - Yanci Mayo LPN - 04/17/2023 4:09 PM EDTAddended by: YANCI MAYO on: 04/17/2023 04:09 PM Modules accepted: Orders * Telephone Encounter - Yanci Mayo LPN - 04/17/2023 4:02 PM EDT [...] Pt wants a call back from Dr العلي please [phone] Thank you, Maria Victoria Rich [facility] Obiee Consultant II [facility])(Formerly Telepharmacy) 04/16/2023,1:22 PM documented in this encounter Plan of Treatment Upcoming Encounters Date Type Specialty Care Team Description 05/11/2023 Hospital Encounter Surgery Chris Aldridge Jr., MD [address] [place] [address] 05/11/2023 Surgery Surgery Chris Aldridge Jr., MD [address] [place] [address] CYSTOURETHROSCOPY URETEROSCOPY WITH LITHOTRIPSY AND STENT INSERTION 05/25/2023 Hospital Encounter Surgery Chris Aldridge Jr., MD [address] [place] [place] [address] 05/25/2023 Surgery Surgery Chris Aldridge Jr., MD [address] [place] [place] [address] CYSTOURETHROSCOPY WITH FOREIGN BODY REMOVAL SIMPLE 09/28/2023 Office Visit Family Medicine Moreno العلي MD [address] [email or web address] [place] [address] Scheduled Procedures Name Priority Associated Diagnoses Date/Ti [...] D LEVEL ONCE IN A LIFETIME-USE SMARTSET# [id number] Completed 06/12/2022, 01/31/2019, 04/06/2018, Additional history exists [...] Advance Directives occurred with: Patient Care Teams Director Of Digital Technology Relationship Specialty Start Date End Date Moreno العلي MD [address] [place] [address] PCP - General Family Medicine 06/11/21 documented as of this encounter
--- OUTSIDE RECORDS SUMMARY | 2023-07-17 07:50 | External Medical Summary | Summary of Care ---
Author Name Unknown Organization [facility] Address [address] [place] [address] Phone [phone] Care Team Providers Care Stereoptic Projection Topographer Name Role Phone Meaghan Wilson MD Primary Care Provider [phone] Reason for Visit * Reason Comments Medication Refill Encounter Details Date Type Department Care Team Description 04/14/2023 Refill Family Practice [facility] [address] [place] [address] Meaghan Wilson MD [address] [place] [phone] Controlled substance agreement signed; Spinal stenosis of lumbar region without neurogenic claudication Allergies Active Allergy Reactions Severity Noted Date Comments Metformin Nausea/vomiting Medium 11/07/2020 Nsaids 01/07/2005 Prednisone 12/26/2013 ? Hives Worries about blood sugar elevation Sulfa Antibiotics 12/26/2013 hives Tramadol Other (Please comment) 02/20/2014 Urine retention documented as of this encounter (statuses as of 04/16/2023) Medications Medication Sig Dispensed Refills Start Date [...] as of this encounter (statuses as of 04/16/2023) Active Problems Problem Noted Date Depression with [...] as of this encounter (statuses as of 04/16/2023) Resolved Problems Problem Noted Date Resolved Date [...] as of this encounter (statuses as of 04/16/2023) Immunizations Name Administration Dates Next Due COVID-19 [...] month. * Telephone Encounter - Meaghan Nur [facility] - 04/15/2023 11:17 AM EDT Pending Prescriptions: Disp Refills oxyCODONE HCl 10 MG Oral Tablet (Roxicodon*60 Tab*0 Sig: Take 1 Tablet by mouth every 4 hours as needed for Pain, Severe. * Telephone Encounter - Meaghan Nur [facility] - 04/15/2023 11:16 AM EDT I have reviewed the patients controlled substance dispensing history in the Prescription Drug Monitoring Program in compliance with the [facility] regulations before prescribing a controlled substance. PDMP checked on 04/15/2023. Pending Prescriptions: Disp Refills oxyCODONE HCl 10 MG Oral Tablet (Roxicodo*60 Tab*0 Sig: Take 1 Tablet by mouth every 4 hours as needed for Pain, Severe. Last Visit: 03/27/2023 (in office), Visit date not found (telemedicine) Next Visit: 09/28/2023 Date medication was last filled: 04/07 Date medication is due for refill: 04/16 Pharmacy: [facility] Is this request for a controlled [...] Clinical Pharmacist Central[facility] Clinical Pharmacy Services(formerly telepharmacy) [phone] 04/15/2023, 11:16 AM documented in this encounter Plan of Treatment Upcoming Encounters Date Type Specialty Care Team Description 05/11/2023 Hospital Encounter Surgery Chris Aldridge Jr., MD [address] [place] [address] 05/11/2023 Surgery Surgery Chris Aldridge Jr., MD [address] [place] [address] CYSTOURETHROSCOPY URETEROSCOPY WITH LITHOTRIPSY AND STENT INSERTION 05/25/2023 Hospital Encounter Surgery Chris Aldridge Jr., MD [address] [place] [address] [place] [address] 05/25/2023 Surgery Surgery Chris Aldridge Jr., MD [address] [place] [place] [address] CYSTOURETHROSCOPY WITH FOREIGN BODY REMOVAL SIMPLE 09/28/2023 Office Visit Family Medicine Meaghan Wilson MD [address] [place] [address] Scheduled Procedures Name Priority Associated Diagnoses Date/Ti [...] D LEVEL ONCE IN A LIFETIME-USE SMARTSET# [id number] Completed 06/12/2022, 01/31/2019, 04/06/2018, Additional history exists [...] Advance Directives occurred with: Patient Care Teams Stereoptic Projection Topographer Relationship Specialty Start Date End Date Meaghan Wilson MD [address] [facility] [place] [address] PCP - General Family Medicine 06/11/21 documented as of this encounter
--- OUTSIDE RECORDS SUMMARY | 2023-07-17 07:50 | External Medical Summary | Summary of Care ---
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 I also certify that this referral may serve as an initiation of service for the management of drug therapy in the above noted patient. [facility] providers will be responsible for scheduling patient visits, obtaining appropriate laboratory studies, and adjusting medication management therapy per patient's need, in addition to those roles spelled out in the clinic policy, procedures, and drug management protocols. I understand that the service provided by the [facility] is voluntary and have informed patient that they can refuse the service at their discretion. I am aware that the [facility] Clinic will provide me with a copy of the patient encounter via my [employer] InBasket. I authorize the [facility] Clinic to carry out these activities on my behalf. I consider this program to be a necessary part of the patient's medical care. Madelyn Mayo LPN Reason for Visit * Reason Onset Date Comments Advice 04/16/2023 Encounter Details Date Type Department Care Team Description 04/16/2023 Telephone Family Practice [facility] [address] [place] [address] Meaghan Wilson MD [address] [place] [address] Advice Allergies Active Allergy Reactions Severity Noted Date Comments Metformin Nausea/vomiting Medium 11/07/2020 Nsaids 01/07/2005 Prednisone 12/26/2013 ? Hives Worries about blood sugar elevation Sulfa Antibiotics 12/26/2013 hives Tramadol Other (Please comment) 02/20/2014 Urine retention documented as of this encounter (statuses as of 04/19/2023) Medications Medication Sig Dispensed Refills Start Date [...] goal of less than 7.0% ([facility]) Take by mouth 1 Tablet in [...] ns:COPD, severity to be determined ([facility]) inhale contents of 1 vial ( [...] as of this encounter (statuses as of 04/19/2023) Active Problems Problem Noted Date Depression with [...] as of this encounter (statuses as of 04/19/2023) Resolved Problems Problem Noted Date Resolved Date [...] as of this encounter (statuses as of 04/19/2023) Immunizations Name Administration Dates Next Due COVID-19 [...] encounter Miscellaneous Notes * Addendum Note - Meaghan Wilson MD - 04/19/2023 5:19 PM EDTAddended by: MEAGHAN WILSON on: 04/19/2023 05:19 PM Modules accepted: Orders * Telephone Encounter - Meaghan Wilson MD - 04/19/2023 5:19 PM EDT Referral to [facility] signed. Please assist with scheduling. * Addendum [...] Pt wants a call back from Dr iWlson please [phone] Thank you, Maria Victoria Rich citizenship teacher Senior Ux Developer II [facility])(Formerly Telepharmacy) 04/16/2023,1:22 PM documented in this encounter Plan of Treatment Upcoming Encounters Date Type Specialty Care Team Description 05/11/2023 Hospital Encounter Surgery Chris Aldridge Jr., MD [address] [place] [place] [address] 05/11/2023 Surgery Surgery Chris Aldridge Jr., MD [address] [place] [place] [address] CYSTOURETHROSCOPY URETEROSCOPY WITH LITHOTRIPSY AND STENT INSERTION 05/25/2023 Hospital Encounter Surgery Chris Aldridge Jr., MD [address] [place] [place] [address] 05/25/2023 Surgery Surgery Chris Aldridge Jr., MD [address] [place] [place] [address] CYSTOURETHROSCOPY WITH FOREIGN BODY REMOVAL SIMPLE 09/28/2023 Office Visit Family Medicine Meaghan Wilson MD [address] [place] [address] Scheduled Procedures Name Priority Associated Diagnoses Date/Ti [...] D LEVEL ONCE IN A LIFETIME-USE SMARTSET# [id number] Completed 06/12/2022, 01/31/2019, 04/06/2018, Additional history exists [...] Advance Directives occurred with: Patient Care Teams Coat Ironer Hand Relationship Specialty Start Date End Date Meaghan Wilson MD [address] [place] [address] PCP - General Family Medicine 06/11/21 documented as of this encounter
--- OUTSIDE RECORDS SUMMARY | 2023-07-17 07:50 | External Medical Summary | Summary of Care ---
Author Name Unknown Organization [facility] Address [address] [place] [address] Phone [phone] Care Team Providers Care Appraisal Manager Name Role Phone Meaghan Wilson MD Primary Care Provider [phone] Reason for Visit * Reason Comments eRx-Medication Refill Encounter Details Date Type Department Care Team Description 04/10/2023 Refill Family Practice [facility] [address] [place] [address] Meaghan Wilson MD [address] [place] [address] Allergies Active Allergy Reactions Severity Noted Date Comments Metformin Nausea/vomiting Medium 11/07/2020 Nsaids 01/07/2005 Prednisone 12/26/2013 ? Hives Worries about blood sugar elevation Sulfa Antibiotics 12/26/2013 hives Tramadol Other (Please comment) 02/20/2014 Urine retention documented as of this encounter (statuses as of 04/10/2023) Medications Medication Sig Dispensed Refills Start Date [...] 5 1 Active [facility] D3 50 MCG (1999) Oral Capsule (Cholecalciferol)In dications:Vitamin D deficiency Take by mouth 1 Capsule in the morning. 90 Capsule 3 2 Active Aspirin 81 MG Oral Tablet Delayed Release (Aspirin Low Dose)Indications:Dy slipidemia, goal LDL below 100,Type 2 diabetes mellitus with hemoglobin A1c goal of less than 7.0% ([facility]) Take by mouth 1 Tablet in [...] RESTLESS LEGS 90 Tablet 3 3 Active Potassium Chloride ER 10 MEQ Oral Tablet Extended ReleaseIndications: Electrolyte and fluid disorder Take 1 Tablet by mouth in the morning and 1 Tablet before bedtime. 180 Tablet 1 3 Active Fluticasone-Salmete rol 250-50 MCG/ACT Inhalation Aerosol Powder Breath Activated (Advair Diskus)Indications: COPD, group C, by GOLD 2017 classification ([facility]) inhale 1 puff by mouth and [...] FOR DIZZINESS 90 Tablet 1 3 Active Meclizine HCl 12.5 MG Oral Tablet (Antivert) Take 1 Tablet by mouth 3 times a day as needed for Dizziness. 90 Tablet 1 3 04/10/20 23 Discontinued documented as of this encounter (statuses as of 04/10/2023) Active Problems Problem Noted Date Depression with [...] as of this encounter (statuses as of 04/10/2023) Resolved Problems Problem Noted Date Resolved Date [...] as of this encounter (statuses as of 04/10/2023) Immunizations Name Administration Dates Next Due COVID-19 [...] encounter Miscellaneous Notes * Telephone Encounter - Julio Valdivia [facility] - 04/10/2023 2:37 PM EDTSigned Prescriptions: Disp Refills Meclizine HCl 12.5 MG Oral Tablet (Antiver*90 Tab*1 Sig: TAKE 1 TABLET THREE TIMES DAILY NEEDED FOR DIZZINESSAuthorizing Provider: MEAGHAN WILSON User: JULIO VALDIVIA documented in this encounter Plan of Treatment Upcoming Encounters Date Type Specialty Care Team Description 04/15/2023 Office Visit Urology Oly Pierson, Chris Monsalve MD [address] [place] [place] [address] 09/28/2023 Office Visit Family Medicine Meaghan Wilson MD [address] [facility] [place] [address] Scheduled Procedures Name Priority Associated Diagnoses Date/Ti [...] D LEVEL ONCE IN A LIFETIME-USE SMARTSET# [id number] Completed 06/12/2022, 01/31/2019, 04/06/2018, Additional history exists [...] Advance Directives occurred with: Patient Care Teams Appraisal Manager Relationship Specialty Start Date End Date Meaghan Wilson MD [address] [place] [address] PCP - General Family Medicine 06/11/21 documented as of this encounter
--- OUTSIDE RECORDS SUMMARY | 2023-07-17 07:50 | External Medical Summary | Summary of Care ---
Author Name Unknown Organization [facility] Address [address] [place] [address] Phone [phone] Care Team Providers Care Programming Equipment Operator Name Role Phone Meaghan Wilson MD Primary Care Provider [phone] Reason for Visit * Reason Comments Follow Up Encounter Details Date Type Department Care Team Description 04/15/2023 Office Visit Urology Santosh Marquez [address] [place] [address] [place] [address] Chris Aldridge Jr., MD [address] [place] [address] [place] [address] Kidney stone*; Preoperative cardiovascular examination Allergies Active Allergy Reactions [...] goal of less than 7.0% ([facility]) Take by mouth 1 Tablet in the [...] Solution (Proventil)Indicatio ns:COPD, severity to be determined ([facility]) inhale contents of 1 vial ( 3 [...] C, by GOLD 2017 classification ([facility]) inhale 1 puff by mouth and INTO [...] as of this encounter Progress Notes * Chris Aldridge Jr., MD - 04/15/2023 1:17 PM EDT [id number] PCP: MEAGHAN WILSON [address] [place] [address] [phone] Anika Salvador is a 72 year old [...] Bandages & Supports [place]KNEE BRACE/HINGED BARS [place]AR[place] [facility] [place] for [place] instability 1 Each 0 Incontinence Supply Disposable (COMFORT SHIELD ADULT DIAPERS) [facility] [place] Adult large pull ups use 2 dailyand [...] DIAGNOSTIC (RECTUM) 06/06/2021 poor prep, repeat / [facility] CYSTOSCOPY 02/22/2014 ull left with stent exchange CYSTOSCOPY/INSERTION OF STENT Left 03/03/2023 CYSTOURETHROSCOPY WITH INSERTION URETERAL STENT performed by Chris Aldridge Jr., MD at OR [facility] CYSTOSCOPY/REMOVE OBJECT, SIMPLE 03/20/2014 EGD, FLEXIBLE, DIAGNOSTIC 06/06/2021 normal bx / [facility] MISCELLANEOUS ORDER ([facility] ONLY) 03/16/2008 Right breast punch biopsy (benign) - Dr. Orozco REMOVAL OF TONSILS, AGE 12+ Tonsils Removal,12+ Y/O Patient Active Problem List Diagnosis Code Spinal stenosis of lumbar region without neurogenic claudication M48.061 Gastroesophageal reflux disease without esophagitis K21.9 Type 2 diabetes mellitus with hemoglobin A1c goal of less than 8.0% ([facility]) E11.9 Dyslipidemia E78.5 RLS (restless legs syndrome) G25.81 HTN, goal below 130/80 I10 Controlled substance agreement signed Z79.899 COPD, group C, by GOLD 2017 classification ([facility]) J44.9 Senile osteoporosis M81.0 Moderate aortic stenosis I35.0 Morbid obesity ([facility]) E66.01 Depression with anxiety F41.8 Past Surgical [...] a long history of seeing urologists in [place] for stones and may return to themfor treatment. Chris Aldridge Jr, MD 1:17 PM 04/15/2023In And Out Surgery Nothing to eat or drink after midnight the night prior to surgery Discontinue Aspirin/NSAID use 7 days prior to procedure documented in this encounter Nursing Notes * Milagro Clay LPN - 04/15/2023 1:20 PM EDT Patient presents to discuss next step for kidney stones. Has stent in place. States she does have dysuria but otherwise it doesn't bother her. Long history of stones needing surgical removal. States she doesn't void very much now and her flow is slow. documented in this encounter Plan of Treatment Upcoming Encounters Date Type Specialty Care Team Description 05/11/2023 Hospital Encounter Surgery Oly Pierson, Chris Monsalve MD [address] [place] [address] [place] [address] 09/28/2023 Office Visit Family Medicine Meaghan Wilson MD [address] [facility] [place] [address] Scheduled Orders Name Type Priority Associated Diagnoses Orde r Schedule BASIC METABOLIC PANEL Lab Pre-operative Kidney stone Preoperative cardiovascular examination Expected: 04/22/2023, Expires: 04/15/2024 CBC Lab Pre-operative Kidney stone Preoperative cardiovascular examination Expected: 04/22/2023, Expires: 04/15/2024 CULTURE, URINE, QUANTITATIVE Lab Routine Kidney stone Preoperative cardiovascular examination Expected: 04/22/2023, Expires: 04/15/2024 XR ABDOMEN 1 VIEW Medical Imaging Routine Kidney stone Expected: 04/22/2023, Expires: 05/16/2024 Scheduled Procedures Name Priority Associated Diagnoses Date/Ti me CYSTOURETHROSCOPY URETEROSCO PY WITH LITHOTRIPSY AND STENT INSERTION Kidney stone COLONOSCOPY FLEXIBLE PROXIMA L DIAGNOSTIC Recall Family [...] D LEVEL ONCE IN A LIFETIME-USE SMARTSET# [id number] Completed 06/12/2022, 01/31/2019, 04/06/2018, Additional history exists [...] Diagnosis Kidney stone- Primary Calculus of kidney Preoperative cardiovascular examination Pre-operative cardiovascular examination documented in this encounter Advance Directives Latest Code Status on File Code Status Date Activated Date Inactivated Comments Full Code 03/02/2023 11:58 PM 03/09/2023 6:38 PM This order reflects the patients wishes and were consensually agreed upon. Question Answer Comments Discussion of Advance Directives occurred with: Patient Care Teams Programming Equipment Operator Relationship Specialty Start Date End Date Meaghan Wilson MD [address] [place] [address] PCP - General Family Medicine 06/11/21 documented as of this encounter
--- OUTSIDE RECORDS SUMMARY | 2023-07-17 07:50 | External Medical Summary | Summary of Care ---
Author Name Unknown Organization [facility] Address [address] [place] [address] Phone [phone] Care Team Providers Care Paralegal Supervisor Name Role Phone Meaghan Wilson MD Primary Care Provider [phone] Reason for Visit * Reason Comments Follow Up Encounter Details Date Type Department Care Team Description 04/15/2023 Office Visit Urology Santosh Marquez [address] [place] [address] [place] [address] Chris Aldridge Jr., MD [address] [place] [address] [place] [address] Kidney stone*; Preoperative cardiovascular examination Allergies Active [...] hemoglobin A1c goal of less than 7.0% ([facility]) Take by mouth 1 Tablet [...] Solution (Proventil)Indicatio ns:COPD, severity to be determined ([facility]) inhale contents of 1 vial [...] OPD, group C, by GOLD 2017 classification ([facility]) inhale 1 puff by mouth [...] Jr., MD - 04/15/2023 1:17 PM EDT [id number] PCP: MEAGHAN WILSON [address] [place] [address] [phone] Anika Salvador is a 72 year old [...] Bandages & Supports [place]KNEE BRACE[place]HINGED BARS [place]GE[place] [facility] [place] for [place] instability 1 Each 0 Incontinence Supply Disposable (COMFORT SHIELD ADULT DIAPERS) [facility] [place] large pull ups use 2 dailyand [...] (RECTUM) 06/06/2021 poor prep, repeat / [facility] CYSTOSCOPY 02/22/2014 ull left with stent exchange CYSTOSCOPY/INSERTION OF STENT Left 03/03/2023 CYSTOURETHROSCOPY WITH INSERTION URETERAL STENT performed by Chris Aldridge Jr., MD at OR [facility] CYSTOSCOPY/REMOVE OBJECT, SIMPLE 03/20/2014 EGD, FLEXIBLE, DIAGNOSTIC 06/06/2021 normal bx / [facility] MISCELLANEOUS ORDER ([facility] ONLY) 03/16/2008 Right breast punch biopsy (benign) - Dr. Orozco REMOVAL OF TONSILS, AGE 12+ Tonsils Removal,12+ Y/O Patient Active Problem List Diagnosis Code Spinal stenosis of lumbar region without neurogenic claudication M48.061 Gastroesophageal reflux disease without esophagitis K21.9 Type 2 diabetes mellitus with hemoglobin A1c goal of less than 8.0% ([facility]) E11.9 Dyslipidemia E78.5 RLS (restless legs syndrome) G25.81 HTN, goal below 130/80 I10 Controlled substance agreement signed Z79.899 COPD, group C, by GOLD 2017 classification ([facility]) J44.9 Senile osteoporosis M81.0 Moderate aortic stenosis I35.0 Morbid obesity ([facility]) E66.01 Depression with anxiety F41.8 [...] a long history of seeing urologists in [place] for stones and may return to themfor [...] flow is slow. documented in this encounter Miscellaneous Notes * Addendum Note - JEMIMA Figueroa - 04/15/2023 2:01 PM EDTAddended by: VARUN LANGFORD on: 04/15/2023 02:01 PM Modules accepted: Orders documented in this encounter Plan of Treatment Upcoming Encounters Date Type Specialty Care Team Description 05/11/2023 Hospital Encounter Chris Jackson Jr., MD [address] [place] [address] [place] [address] 05/25/2023 Hospital Encounter Surgery Chris Aldridge Jr., MD [address] [place] [address] [place] [address] 09/28/2023 Office Visit Family Medicine Meaghan Wilson MD [address] [place] [address] Scheduled Orders Name Type Priority Associated Diagnoses Orde r Schedule CULTURE, URINE, QUANTITATIVE Lab Routine Kidney stone Preoperative cardiovascular examination Expected: 04/22/2023, Expires: 04/15/2024 Scheduled Procedures Name Priority Associated Diagnoses Date/Ti me CYSTOURETHROSCOPY URETEROSCO PY WITH LITHOTRIPSY AND STENT INSERTION Kidney stone CYSTOURETHROSCOPY WITH FOREI GN BODY REMOVAL SIMPLE Kidney stone COLONOSCOPY FLEXIBLE PROXIMA L DIAGNOSTIC [...] D LEVEL ONCE IN A LIFETIME-USE SMARTSET# [id number] Completed 06/12/2022, 01/31/2019, 04/06/2018, Additional history exists [...] Advance Directives occurred with: Patient Care Teams Paralegal Supervisor Relationship Specialty Start Date End Date Meaghan Wilson MD [address] [place] [address] PCP - General Family Medicine 06/11/21 documented as of this encounter
--- OUTSIDE RECORDS SUMMARY | 2023-07-17 07:50 | External Medical Summary | Summary of Care ---
Author Name Unknown Organization [facility] Address [address] [place] [address] Phone [phone] Care Team Providers Care Museum Archivist Name Role Phone Meaghan Wilson MD Primary Care Provider [phone] Reason for Visit * Reason Comments eRx-Medication Refill Encounter Details Date Type Department Care Team Description 04/07/2023 Refill Family Practice [facility] [address] [address] Meaghan Wilson MD [address] [place] [address] Allergies Active Allergy Reactions Severity Noted Date Comments Metformin Nausea/vomiting Medium 11/07/2020 Nsaids 01/07/2005 Prednisone 12/26/2013 ? Hives Worries about blood sugar elevation Sulfa Antibiotics 12/26/2013 hives Tramadol Other (Please comment) 02/20/2014 Urine retention documented as of this encounter (statuses as of 04/08/2023) Medications Medication Sig Dispensed Refills Start Date [...] RESTLESS LEGS 90 Tablet 3 3 Active Meclizine HCl 12.5 MG Oral Tablet (Antivert) Take 1 Tablet by mouth 3 times a day as needed for Dizziness. 90 Tablet 1 3 Active Potassium Chloride [...] NEEDED FOR NAUSEA 90 Tablet 1 3 04/08/20 23 Discontinued documented as of this encounter (statuses as of 04/08/2023) Active Problems Problem Noted Date Depression with [...] as of this encounter (statuses as of 04/08/2023) Resolved Problems Problem Noted Date Resolved Date [...] as of this encounter (statuses as of 04/08/2023) Immunizations Name Administration Dates Next Due COVID-19 [...] encounter Miscellaneous Notes * Telephone Encounter - Caleb Diaz RPh - 04/08/2023 10:52 AM EDTSigned Prescriptions: Disp Refills Ondansetron HCl 4 MG Oral Tablet (Zofran) 90 Tab*1 Sig: TAKE 2 TABLETS EVERY 8 HOURS NEEDED FOR NAUSEAAuthorizing Provider: MEAGHAN WILSON User: CALEB DIAZ documented in this encounter Plan of Treatment Upcoming Encounters Date Type Specialty Care Team Description 09/28/2023 Office Visit Family Medicine Meaghan Wilson MD [address] [place] [address] Scheduled Procedures Name Priority Associated Diagnoses Date/Ti [...] D LEVEL ONCE IN A LIFETIME-USE SMARTSET# [id number] Completed 06/12/2022, 01/31/2019, 04/06/2018, Additional history exists [...] Advance Directives occurred with: Patient Care Teams Museum Archivist Relationship Specialty Start Date End Date Meaghan Wilson MD [address] [place] [address] PCP - General Family Medicine 06/11/21 documented as of this encounter
--- OUTSIDE RECORDS SUMMARY | 2023-07-17 07:50 | External Medical Summary | Summary of Care ---
Author Name Unknown Organization [facility] Address [address] [place] [address] Phone [phone] Care Team Providers Care Manager Of Administration Name Role Phone Moreno العلي MD Primary Care Provider [phone] Reason for Visit * Reason Onset Date Comments Advice 04/16/2023 Encounter Details Date Type Department Care Team Description 04/16/2023 Telephone Family Practice [facility] [address] [address] [employer] [place] [address] Moreno العلي MD [address] [address] [employer] [place] [address] Advice Allergies Active Allergy Reactions Severity Noted [...] hemoglobin A1c goal of less than 7.0% ([facility]) Take by mouth 1 Tablet in the [...] Solution (Proventil)Indicatio ns:COPD, severity to be determined ([facility]) inhale contents of 1 vial ( 3 [...] OPD, group C, by GOLD 2017 classification ([facility]) inhale 1 puff by mouth and INTO [...] Miscellaneous Notes * Telephone Encounter - DENILSON Chacko - 04/16/2023 1:18 PM EDT Pt calling upset that she only got a 10 day supply of oxycodone 10 mg. At the last Office Visit pt stated that Would give her a 1 month supply. Pt wants a call back from Dr العلي please [phone] Thank you, Maria Victoria Rich, [facility] Hatchery Supervisor II [facility])(Formerly Telepharmacy) 04/16/2023,1:22 PM documented in this encounter Plan of Treatment Upcoming Encounters Date Type Specialty Care Team Description 05/11/2023 Hospital Encounter Surgery Chris Aldridge Jr., MD [address] [facility] [place] [address] [place] [address] 05/11/2023 Surgery Surgery Chris Aldridge Jr., MD [address] [place] [address] [place] [address] CYSTOURETHROSCOPY URETEROSCOPY WITH LITHOTRIPSY AND STENT INSERTION 05/25/2023 Hospital Encounter Surgery Chris Aldridge Jr., MD [address] [place] [address] [place] [address] 05/25/2023 Surgery Surgery Chris Aldridge Jr., MD [address] [place] [address] [place] [address] CYSTOURETHROSCOPY WITH FOREIGN BODY REMOVAL SIMPLE 09/28/2023 Office Visit Family Medicine Moreno العلي MD [address] [place] [address] Scheduled Procedures Name Priority Associated Diagnoses Date/Ti [...] D LEVEL ONCE IN A LIFETIME-USE SMARTSET# [id number] Completed 06/12/2022, 01/31/2019, 04/06/2018, Additional history exists [...] Advance Directives occurred with: Patient Care Teams Manager Of Administration Relationship Specialty Start Date End Date Moreno العلي MD [address] [place] [address] PCP - General Family Medicine 06/11/21 documented as of this encounter
--- OUTSIDE RECORDS SUMMARY | 2023-07-17 07:51 | External Medical Summary | Summary of Care ---
Author Name Unknown Organization [facility] Address [address] [place] [address] Phone [phone] Care Team Providers Care Break Up Worker Name Role Phone Moreno العلي MD Primary Care Provider [phone] Reason for Visit * Reason Onset Date Comments Medication Refill 03/23/2023 Encounter Details Date Type Department Care Team Description 03/23/2023 Telephone Family Practice [facility] [address] [place] [address] Moreno العلي MD [address] [facility] [place] [address] Medication Refill Allergies Active Allergy Reactions Severity Noted Date Comments Metformin Nausea/vomiting Medium 11/07/2020 Nsaids 01/07/2005 Prednisone 12/26/2013 ? Hives Worries about blood sugar elevation Sulfa Antibiotics 12/26/2013 hives Tramadol Other (Please comment) 02/20/2014 Urine retention documented as of this encounter (statuses as of 03/23/2023) Medications Medication Sig Dispensed Refills Start Date [...] hemoglobin A1c goal of less than 7.0% ([facility]) Take by mouth 1 Tablet [...] RESTLESS LEGS 90 Tablet 3 09/10/2022 Active Meclizine HCl 12.5 MG Oral Tablet (Antivert) Take 1 Tablet by mouth 3 times a day as needed for Dizziness. 90 Tablet 1 10/17/2022 Active Ondansetron HCl 4 MG Oral Tablet (Zofran) TAKE 2 TABLETS EVERY 8 HOURS NEEDED FOR NAUSEA 90 Tablet 1 10/17/2022 Active Potassium Chloride ER 10 MEQ Oral Tablet Extended ReleaseIndications:E lectrolyte and fluid disorder Take 1 Tablet by mouth in the morning and 1 Tablet before bedtime. 180 Tablet 1 11/20/2022 Active Fluticasone-Salmeter ol 250-50 MCG/ACT Inhalation Aerosol Powder Breath Activated (Advair Diskus)Indications:C OPD, group C, by GOLD 2017 classification ([facility]) inhale 1 puff by mouth and INTO THE LUNGS twice a day 180 Each 1 01/09/2023 Active Spiriva HandiHaler 18 MCG Inhalation Capsule (tiotropium bromide) INHALE THE CONTENTS OF 1 CAPSULE EVERY DAY 90 Capsule 3 02/23/2023 Active Ciprofloxacin HCl 500 MG Oral Tablet (Cipro) Take 1 Tablet by mouth in the morning and 1 Tablet before bedtime. 16 Tablet 0 03/09/2023 Active oxyCODONE HCl 5 MG Oral Tablet (Oxy IR) Take 1 Tablet by mouth every 6 hours as needed for Pain, Severe. 20 Tablet 0 03/09/2023 Active glipiZIDE ER 5 MG Oral Tablet Extended Release 24 Hour (Glucotrol XL) TAKE 1 TABLET ONE TIME DAILY 30 MINUTES BEFORE A MEAL 90 Tablet 1 03/17/2023 Active documented as of this encounter (statuses as of 03/23/2023) Active Problems Problem Noted Date Severe sepsis 03/02/2023 Complicated UTI (urinary tract infection ) 03/02/2023 Hydronephrosis, left 03/02/2023 Depression with anxiety 06/30/2022 Morbid obesity due to excess calories Moderate aortic stenosis 06/11/2021 Senile osteoporosis 06/09/2021 [...] of lumbar region without neurogenic claudication 08/09/2007 Type 2 diabetes mellitus with hemoglobin A1c goal of less than 7.0% 09/12/2004 Overview: Per Diabetes Taxonomy. ICD-10 update of inactive term documented as of this encounter (statuses as of 03/23/2023) Resolved Problems Problem Noted Date Resolved Date Septic shock 03/02/2023 03/07/2023 JONA (generalized anxiety disorder) 03/14/2022 06/30/2022 Body [...] ADVANCE DIRECTIVE INFORMATION 01/08/2005 Overview: refused inf HYPERSOMNI W SLEEP APNEA-nocturnal oxygen 200306/09/2021 Tobacco use disorder 03/22/2004 10/26/2015 EXT ASTHMA W-O STAT ASTH 011 LUMBAGO 08/09/2007 HYPERTENSION NOS 07/10/2009 Overview: Modified per HTN protocol #16. GENERAL OSTEOARTHROSIS 1 documented as of this encounter (statuses as of 03/23/2023) Immunizations Name Administration Dates Next Due COVID-19 mRNA, LNP-s, No Pre serve, 2-Dose Series (Moderna) 11/17/2020,10/20/2020 H1N1 2009 Influenza, IM 08/15/2009 Pneumococcal Conjugate Vacc, 13 Valent (Prevnar) 02/04/2016 Pneumococcal Polysaccharide PPV23 (Pneumovax) 02/24/2017 Seasonal Influenza Virus Vac cine, Unspecified Formulation 07/09/2020,06/02/2019,06/13/2018,07/20,05/14/2016,04/18/2014,05/18/2013 ,06/15/2012,05/14/2011,05/03/2010,04/17,06/17/2008,08/09/2007, 5,05/27/2004,07/23/2001 Seasonal Influenza, Quadriva lent Hd (Fluzone Hd) 07/01/2022,06/11/2021 Seasonal Influenza, Quadriva lent, No Preserve, 6 Mons & Above, IM 06/13/2018,07/20/2017 Seasonal Influenza, Quadriva lent, No Preserve, Adjuvanted, 65+ Yrs, IM 07/09/2020 Seasonal Influenza, Quadriva lent, No Preserve, IM [...] * Telephone Encounter - DENILSON Chacko - 03/23/2023 8:21 AM EDT Med was disc while in hospital Pt has appt on thu03/27/2023 Pt calling requesting the following medication below that is listed as "Historical". The following information was provided: Medication Name: percocet Strength: 10-325 mg Directions:1b Tablet every 6 hours as needed for pain Preferred Quantity: 120 Previous Prescriber: katrin Preferred Pharmacy: [facility] Please review and approve if appropriate. Thank you, Maria Victoria Rich, [facility] Athletic Coordinator II [facility])(Formerly Telepharmacy) 03/23/2023,8:23 AM documented in this encounter Plan of Treatment Upcoming Encounters Date Type Specialty Care Team Description 03/27/2023 Office Visit Family Medicine Moreno العلي MD [address] [place] [address] Scheduled Procedures Name Priority Associated Diagnoses Date/Ti [...] D LEVEL ONCE IN A LIFETIME-USE SMARTSET# [id number] Completed 06/12/2022, 01/31/2019, 04/06/2018, Additional history exists [...] Advance Directives occurred with: Patient Care Teams Break Up Worker Relationship Specialty Start Date End Date Moreno العلي MD [address] [place] [address] PCP - General Family Medicine 06/11/21 documented as of this encounter
--- OUTSIDE RECORDS SUMMARY | 2023-07-17 07:51 | External Medical Summary | Summary of Care ---
Author Name Unknown Organization [facility] Address [address] [place] [address] Phone [phone] Care Team Providers Care Hat Brusher Machine Name Role Phone Moreno العلي MD Primary Care Provider [phone] [phone] Reason for Visit * Reason Onset Date Comments Med Request 03/30/2023 Encounter Details Date Type Department Care Team Description 03/30/2023 Telephone Family Practice [facility] [address] [facility] [place] [address] Moreno العلي MD [address] [facility] [place] [address] Med Request (/) Allergies Active Allergy Reactions Severity Noted Date Comments Metformin Nausea/vomiting Medium 11/07/2020 Nsaids 01/07/2005 Prednisone 12/26/2013 ? Hives Worries about blood sugar elevation Sulfa Antibiotics 12/26/2013 hives Tramadol Other (Please comment) 02/20/2014 Urine retention documented as of this encounter (statuses as of 03/31/2023) Medications Medication Sig Dispensed Refills Start Date [...] goal of less than 7.0% ([facility]) Take by mouth 1 Tablet in the [...] C, by GOLD 2017 classification ([facility]) inhale 1 puff by mouth and INTO [...] needed for Pain, Severe. 60 Tablet 0 03/27/2023 Active documented as of this encounter (statuses as of 03/31/2023) Active Problems Problem Noted Date Depression with [...] as of this encounter (statuses as of 03/31/2023) Resolved Problems Problem Noted Date Resolved Date [...] as of this encounter (statuses as of 03/31/2023) Immunizations Name Administration Dates Next Due COVID-19 mRNA, LNP-s, No Pre serve, 2-Dose Series (Moderna) 11/17/2020,10/20/2020 H1N1 2009 Influenza, IM 08/15/2009 Influenza, Whole Virus 07/23/2001 Pneumococcal Conjugate Vacc, 13 Valent (Prevnar) 02/04/2016 Pneumococcal Polysaccharide PPV23 (Pneumovax) 02/24/2017,08/07/2005 Seasonal Influenza Virus Vac cine, Unspecified Formulation [...] Miscellaneous Notes * Telephone Encounter - Jairo Salguero RN - 03/31/2023 9:17 AM EDT Called patient and informed her of Dr. العلي's previous message. She verbalized understanding of all information and is agreeable. Patient said Dr. العلي only gave her a 10 day supply of the oxycodone, and will need another prescription sent to the pharmacy. She is requesting a 30 day supply. Patient said she has to have someone go and pick it up for her and it costs her money every time she has someone go to pick it up. Pharmacy confirmed. Please advise. * Telephone Encounter - Moreno العلي MD - 03/30/2023 7:53 PM EDT No. She can take a tylenol at the same time if she wants. No changing of meds for now. * Telephone Encounter - Kimmie Le CPhT - 03/30/2023 12:37 PM EDT Patient stated she does not like the Oxy 10mg that was prescribed. She would like to go back the Oxycodone-apap that she was prescribed in rehab. Please advise patient if the request will be approved or not. Patient requesting refills for Oxycodone-apap . Upon chart review, medication is listed as discontinued, with discontinuation reason as "none". Please advise if you wish to continue this therapy for the patient. Thank you, Kimmie Le CPhT Senior Risk Analyst [facility] ([facility])(formerly telepharmacy) 03/30/2023,12:38 PM documented in this encounter Plan of Treatment Upcoming Encounters Date Type Specialty Care Team Description 09/28/2023 Office Visit Family Medicine Moreno العلي MD [address] [place] [address] Scheduled Procedures Name Priority Associated Diagnoses Date/Ti [...] D LEVEL ONCE IN A LIFETIME-USE SMARTSET# [id number] Completed 06/12/2022, 01/31/2019, 04/06/2018, Additional history exists [...] Advance Directives occurred with: Patient Care Teams Hat Brusher Machine Relationship Specialty Start Date End Date Moreno العلي MD [address] [place] [address] PCP - General Family Medicine 06/11/21 documented as of this encounter
--- OUTSIDE RECORDS SUMMARY | 2023-07-17 07:51 | External Medical Summary | Summary of Care ---
Author Name Unknown Organization [facility] Address [address] [place] [address] Phone [phone] Care Team Providers Care Social Media Specialist Name Role Phone Moreno العلي MD Primary Care Provider [phone] [phone] Reason for Visit * Reason Onset Date Comments Med Request 03/30/2023 Encounter Details Date Type Department Care Team Description 03/30/2023 Telephone Family Practice [facility] [address] [facility] [place] [address] Moreno العلي MD [address] [facility] [place] [address] Med Request (/) Allergies Active Allergy Reactions Severity Noted Date Comments Metformin Nausea/vomiting Medium 11/07/2020 Nsaids 01/07/2005 Prednisone 12/26/2013 ? Hives Worries about blood sugar elevation Sulfa Antibiotics 12/26/2013 hives Tramadol Other (Please comment) 02/20/2014 Urine retention documented as of this encounter (statuses as of 03/30/2023) Medications Medication Sig Dispensed Refills Start Date [...] A1c goal of less than 7.0% ([facility]) Take by mouth 1 Tablet in the [...] group C, by GOLD 2017 classification ([facility]) inhale 1 puff by mouth and INTO [...] as of this encounter (statuses as of 03/30/2023) Active Problems Problem Noted Date Depression with [...] as of this encounter (statuses as of 03/30/2023) Resolved Problems Problem Noted Date Resolved Date [...] as of this encounter (statuses as of 03/30/2023) Immunizations Name Administration Dates Next Due COVID-19 [...] encounter Miscellaneous Notes * Telephone Encounter - Kimmie Le CPhT [...] the patient. Thank you, Kimmie Le CPhT Operating Table Assembler [facility] ([facility])(formerly telepharmacy) 03/30/2023,12:38 PM documented in this encounter Plan of Treatment Upcoming Encounters Date Type Specialty Care Team Description 09/28/2023 Office Visit Family Medicine Moreno العلي MD [address] [place] [address] Scheduled Procedures Name Priority Associated Diagnoses Date/Ti [...] D LEVEL ONCE IN A LIFETIME-USE SMARTSET# [id number] Completed 06/12/2022, 01/31/2019, 04/06/2018, Additional history exists [...] Advance Directives occurred with: Patient Care Teams Social Media Specialist Relationship Specialty Start Date End Date Moreno العلي MD [address] [place] [address] PCP - General Family Medicine 06/11/21 documented as of this encounter
--- OUTSIDE RECORDS SUMMARY | 2023-07-17 07:51 | External Medical Summary | Summary of Care ---
Author Name Unknown Organization [facility] Address [address] [place] [address] Phone [phone] Care Team Providers Care Sap Business Intelligence Consultant Name Role Phone Moreno العلي MD Primary Care Provider [phone] [phone] Reason for Visit * Reason Onset Date Comments Hospital Follow-Up Pt here to fo llow up on hospital and custodial Hospital Follow-Up 03/27/2023 Encounter Details Date Type Department Care Team Description 03/27/2023 Office Visit [facility] [address] [place] [address] Moreno العلي MD [address] [place] [address] Hospital discharge follow-up*; Controlled substance agreement signed; Dyslipidemia; COPD, group C, by GOLD 2017 classification ([facility]); Type 2 diabetes mellitus with hemoglobin A1c goal of less than 8.0% ([facility]); Moderate aortic stenosis; HTN, goal below 130/80; Morbid obesity ([facility]); Gastroesophageal reflux disease without esophagitis; Senile osteoporosis; RLS (restless legs syndrome); Spinal stenosis of lumbar region without neurogenic claudication; Depression with anxiety; Screening mammogram for breast cancer Allergies Active Allergy Reactions Severity Noted Date Comments Metformin Nausea/vomiting Medium 11/07/2020 Nsaids 01/07/2005 Prednisone 12/26/2013 ? Hives Worries about blood sugar elevation Sulfa Antibiotics 12/26/2013 hives Tramadol Other (Please comment) 02/20/2014 Urine retention documented as of this encounter (statuses as of 03/27/2023) Medications Medication Sig Dispensed Refills Start Date [...] [facility] D3 50 MCG (1999) Oral Capsule (Cholecalciferol)I ndications:Vitamin D deficiency Take [...] for Dizziness. 90 Tablet 1 3 Active Ondansetron HCl 4 MG Oral Tablet (Zofran) TAKE 2 TABLETS EVERY 8 HOURS NEEDED FOR NAUSEA 90 Tablet 1 3 Active Potassium Chloride ER 10 MEQ Oral Tablet Extended ReleaseIndications :Electrolyte and fluid disorder Take 1 Tablet by mouth in the morning and 1 Tablet before bedtime. 180 Tablet 1 3 Active Fluticasone-Salmet deyanira 250-50 MCG/ACT Inhalation Aerosol Powder Breath Activated (Advair Diskus)Indications :COPD, group C, by GOLD 2017 classification ([facility]) inhale 1 puff by mouth and INTO [...] Active oxyCODONE HCl 10 MG Oral Tablet (Roxicodone)Indica tions:Controlled substance agreement signed,Spinal stenosis of lumbar region without neurogenic claudication Take 1 Tablet by mouth every 4 hours as needed for Pain, Severe. 60 Tablet 0 3 Active Ciprofloxacin HCl 500 MG Oral Tablet (Cipro) Take 1 Tablet by mouth in the morning and 1 Tablet before bedtime. 16 Tablet 0 3 023 Discontinued oxyCODONE HCl 5 MG Oral Tablet (Oxy IR) Take 1 Tablet by mouth every 6 hours as needed for Pain, Severe. 20 Tablet 0 3 023 Discontinued(Kanchan medina) documented as of this encounter (statuses as of 03/27/2023) Active Problems Problem Noted Date Depression with [...] as of this encounter (statuses as of 03/27/2023) Resolved Problems Problem Noted Date Resolved Date [...] 03/22/2004 10/26/2015 EXT ASTHMA W-O STAT ASTH 11/07/2 011 LUMBAGO 08/09/2007 HYPERTENSION NOS 07/10/2009 Overview: Modified per HTN protocol #16. GENERAL OSTEOARTHROSIS 1 documented as of this encounter (statuses as of 03/27/2023) Immunizations Name Administration Dates Next Due COVID-19 [...] Sign Reading Time Taken Comments Blood Pressure 158/74 03/27/2023 11:07 AM EDT Pulse 88 03/27/2023 11:07 AM EDT Temperature 36.6 C (97.8 F) 03/27/2023 11:07 AM E DT Respiratory Rate 18 03/27/2023 11:07 AM EDT Oxygen Saturation - - Inhaled Oxygen Concentration - - Weight 98.4 kg (217 lb) 03/27/2023 11:07 AM EDT Height 157.5 cm (5' 2") 03/27/2023 11:07 AM EDT Body Mass Index 39.69 03/27/2023 11:07 AM EDT documented in this encounter Functional Status Functional Status Response Date of Assess ment Do you have serious difficul ty walking or climbing stairs? (5 years old or older) No 03/04/2023 documented as of this encounter Progress Notes * Moreno العلي MD - 03/27/2023 11:36 AM EDT SUBJECTIVE: Anika Salvador is a 72 year old female. Chief Complaint Patient presents with Hospital Follow-Up Pt here to follow up on hospital and custodial Hospital Follow-Up Recent Admission: Patient was recently admitted to [facility]. Discharge report received and reviewed. HPI: Here for hospital d/c follow up. Was in ICU with urosepsis then went to short term rehab. Feels generally well. Pain is not really controlled on Oxycodone 5 mg. She says they decreased her dose since I last saw her because they "didn't believe in giving 10 mg, only 5 mg." Hospital records/labs/meds reviewed at length. She is back to baseline. Patient Active Problem List Diagnosis Code Spinal stenosis of lumbar region without neurogenic claudication M48.061 Gastroesophageal reflux disease without esophagitis K21.9 Type 2 diabetes mellitus with hemoglobin A1c goal of less than 8.0% ([facility]) E11.9 Dyslipidemia E78.5 RLS (restless legs syndrome) G25.81 HTN, goal below 130/80 I10 Controlled substance agreement signed Z79.899 COPD, group C, by GOLD 2017 classification ([facility]) J44.9 Senile osteoporosis M81.0 Moderate aortic stenosis I35.0 Morbid obesity ([facility]) E66.01 Depression with anxiety F41.8 Current Outpatient Medications Medication Sig Dispense Refill Elastic Bandages & Supports (KNEE BRACE/HINGED BARS LARGE) [facility] Use for right knee instability 1 Each 0 Incontinence Supply Disposable (COMFORT SHIELD ADULT DIAPERS) [facility] Adult large pull ups use 2 daily and as needed. 72 Each 11 Iron (Ferrous Sulfate) 325 (65 Fe) MG Oral Tablet Take 1 Tab by mouth daily. Nitroglycerin 0.4 MG Sublingual Tablet Sublingual (Nitrostat) ONE TAB UNDER TONGUE NEEDED FOR CHEST PAIN MAXIMUM 3 DOSES 50 Tablet 5 CVS D3 50 MCG (2000 UT) Oral Capsule (Cholecalciferol) Take by mouth 1 Capsule in the morning. 90 Capsule 3 Aspirin 81 MG Oral Tablet Delayed Release (Aspirin Low Dose) Take by mouth 1 Tablet in the morning. 90 Tablet 3 LORazepam 0.5 MG Oral Tablet (Ativan) Take by mouth 1 Tablet every 8 hours as needed for Anxiety. 30 Tablet 0 Docusate Sodium 100 MG Oral [...] mouth in the morning and 1 Tablet beforebedtime. 180 Tablet 3 buPROPion HCl ER (XL) 150 MG Oral Tablet Extended Release 24 Hour (Wellbutrin XL) Take 1 Tabletby mouth in the morning. 90 Tablet 3 [...] FOOD FOR RESTLESS LEGS 90 Tablet 3 Meclizine HCl 12.5 MG Oral Tablet (Antivert) Take 1 Tablet by mouth 3 times a day as needed forDizziness. 90 Tablet 1 Ondansetron HCl 4 MG Oral Tablet (Zofran) TAKE 2 TABLETS EVERY 8 HOURS NEEDED FOR NAUSEA 90 Tablet 1 Potassium Chloride ER 10 MEQ Oral Tablet Extended Release Take 1 Tablet by mouth in the morningand 1 Tablet before bedtime. 180 Tablet 1 Fluticasone-Salmeterol [...] by mouth every 4 hours as needed forPain, Severe. 60 Tablet 0 BD Swab Single Use Regular Pad Use [...] MOUTH EVERYDAY AT BEDTIME) 90 Tab 1 Vitamin B-12 1000 MCG Oral Tablet Take by mouth 1 Tablet in the morning. 90 Tablet 0 No current facility-administered medications for this visit. Current and discharge medications have been reconciled. Review of patient's allergies indicates: Allergen Reactions Metformin Nausea/vomiting Nsaids Prednisone ? Hives Worries about blood sugar elevation Sulfa Antibiotics hives Tramadol Other (Please comment) Urine retention OBJECTIVE: BP 158/74 (BP Site: Left Arm, BP Position: Sitting, BP Cuff Size: Large) | Pulse 88 | Temp 36.6 C(97.8 F) (Tympanic) | Resp 18 | Ht 1.575 m (5' 2") | Wt 98.4 kg (217 lb) | BMI 39.69 kg/m | BSA2.07 m PHYSICAL EXAM: General: alert, healthy and no distress Head: Normocephalic, No masses, lesions, tenderness or abnormalities Neck: supple, no adenopathy, no bruits, thyroid normal size, non-tender, without nodularity Heart: regular rate & rhythm, no murmur and no gallops Lungs: chest symmetric with normal AP diameter, no chest deformities noted, no chest wall tenderness, lungs clear to auscultation Abdomen: abdomen soft, non-tender, normal bowel sounds and no masses or organomegaly Back: back symmetric, no curvature, no costovertebral angle tenderness, range of motion is normal Extremities: less than 2 second capillary refill, no joint deformities, effusion, or inflammation Neuro Exam: alert & oriented x 3 with fluent speech, no focal motor/sensory deficits, gait normal, reflexes normal and symmetric ASSESSMENT: Hospital discharge follow-up (Primary) - DISCH MED RECON CUR MED LIS Controlled substance agreement signed - oxyCODONE HCl 10 MG Oral Tablet (Roxicodone); Take 1 Tablet by mouth every 4 hours as needed for Pain, Severe. Dyslipidemia COPD, group C, by GOLD 2017 classification ([facility]) Type 2 diabetes mellitus with hemoglobin A1c goal of less than 8.0% ([facility]) Moderate aortic stenosis HTN, goal below 130/80 Morbid obesity ([facility]) Gastroesophageal reflux disease without esophagitis Senile osteoporosis RLS (restless legs syndrome) Spinal stenosis of lumbar region without neurogenic claudication - oxyCODONE HCl 10 MG Oral Tablet (Roxicodone); Take 1 Tablet by mouth every 4 hours as needed for Pain, Severe. Depression with anxiety Screening mammogram for breast cancer - MAMMOGRAM SCREENING BILATERAL; Future; Expected date: 03/28/2023 Follow Up: Return in about 6 months (around 09/27/2023). PLAN: Continue present medication(s): Follow up in 6 month, or before that if needed. Moreno العلي MD documented in this encounter Nursing Notes * Yanci Mcintosh LPN - 03/27/2023 11:07 AM EDT The patient has been properly identified by confirmation of name and date of . Chief Complaint Patient presents with Hospital Follow-Up Pt here to follow up on hospital and custodial documented in this encounter Plan of Treatment Upcoming Encounters Date Type Specialty Care Team Description 09/28/2023 Office Visit Family Medicine Moreno العلي MD [address] [facility] [place] [place] [address] Scheduled Orders Name Type Priority Associated Diagnoses Orde r Schedule MAMMOGRAM SCREENING BILATERAL Medical Imaging Routine Screening mammogram for breast cancer Expected: 03/28/2023, Expires: 04/27/2024 Scheduled Procedures Name Priority Associated Diagnoses Date/Ti [...] D LEVEL ONCE IN A LIFETIME-USE SMARTSET# [id number] Completed 06/12/2022, 01/31/2019, 04/06/2018, Additional history exists [...] as of this encounter Visit Diagnoses Diagnosis Hospital discharge follow-up- Primary Other follow-up examination Controlled substance agreement signed Encounter for long-term (current) use of other medications Dyslipidemia Other and unspecified hyperlipidemia COPD, group C, by GOLD 2017 classification (HCC) Type 2 diabetes mellitus with hemoglobin A1c goal of less than 8.0% ([facility]) Moderate aortic stenosis Aortic valve disorders HTN, goal below 130/80 Unspecified essential hypertension Morbid obesity (HCC) Morbid obesity Gastroesophageal reflux disease without esophagitis Esophageal reflux Senile osteoporosis RLS (restless legs syndrome) Restless legs syndrome (RLS) Spinal stenosis of lumbar region without neurogenic claudication Spinal stenosis, lumbar region, without neurogenic claudication Depression with anxiety Dysthymic disorder Screening mammogram for breast cancer documented in this encounter Advance Directives Latest Code Status on File Code Status Date Activated Date Inactivated Comments Full Code 03/02/2023 11:58 PM 03/09/2023 6:38 PM This order reflects the patients wishes and were consensually agreed upon. Question Answer Comments Discussion of Advance Directives occurred with: Patient Care Teams Sap Business Intelligence Consultant Relationship Specialty Start Date End Date Moreno العلي MD [address] [place] [address] PCP - General Family Medicine 06/11/21 documented as of this encounter
--- OUTSIDE RECORDS SUMMARY | 2023-07-17 07:51 | External Medical Summary ---
Author Name Unknown Address Unknown Organization [id number]:[facility] - [address] [place] [address] [address] [place] [address] Laboratory Report Ordering Provider Test Date Status MARIO ADAM 03/18/2023 04:22:00 Final Observation Date Value Abnormality Reference (Units ) Status WBC, Total 03/18/2023 04:22:00 5.88 4.00-10.80 (K/uL) Final RBC 03/18/2023 04:22:00 2.99 3.85-5.15 (M/uL) Final Hemoglobin 03/18/2023 04:22:00 7.9 Below low normal 12.0-15.3 (g/dL) Final HCT 03/18/2023 04:22:00 26.7 Below low normal 36.0-45.2 (%) Final MCV 03/18/2023 04:22:00 89.3 81.5-97.5 (fL) Final MCH 03/18/2023 04:22:00 26.4 27.0-34.0 (pg) Final MCHC 03/18/2023 04:22:00 29.6 32.0-36.0 (g/dL) Final RDW 03/18/2023 04:22:00 15.3 11.5-15.5 (%) Final Platelets 03/18/2023 04:22:00 183 140-400 (K/uL) Final MPV 03/18/2023 04:22:00 13.0 6.6-11.1 (fL) Final Nucleated erythrocytes/100 leukocytes [Ratio] in Blood by Automated count 03/18/2023 04:22:00 0 <=0 (/100 WBCs) Final Performing Location [facility] - [address] [facility] [address] [place] [address]
--- OUTSIDE RECORDS SUMMARY | 2023-07-17 07:51 | External Medical Summary | Summary of Care ---
Author Name Unknown Organization [facility] Address [address] [place] [address] Phone [phone] Care Team Providers Care Clear Coat Sprayer Name Role Phone Moreno العلي MD Primary Care Provider [phone] Reason for Visit * Reason Onset Date Comments Medication Refill 03/23/2023 Encounter Details Date Type Department Care Team Description 03/23/2023 Telephone Family Practice [facility] [address] [address] [address] Moreno العلي MD [address] [facility] [place] [address] Medication Refill Allergies Active Allergy Reactions Severity [...] hemoglobin A1c goal of less than 7.0% ([facility]) Take by mouth 1 Tablet in the [...] OPD, group C, by GOLD 2017 classification ([facility]) inhale 1 puff by mouth and INTO [...] if appropriate. Thank you, Maria Victoria Rich, [facility] Operations Architect II [facility])(Formerly Telepharmacy) 03/23/2023,8:23 AM documented in this encounter Plan of Treatment Upcoming Encounters Date Type Specialty Care Team Description 03/27/2023 Office Visit Family Medicine Moreno العلي MD [address] [place] [address] Scheduled Procedures Name Priority Associated Diagnoses Date/Ti [...] D LEVEL ONCE IN A LIFETIME-USE SMARTSET# [id number] Completed 06/12/2022, 01/31/2019, 04/06/2018, Additional history exists [...] Advance Directives occurred with: Patient Care Teams Clear Coat Sprayer Relationship Specialty Start Date End Date Moreno العلي MD [address] [place] [address] PCP - General Family Medicine 06/11/21 documented as of this encounter
--- OUTSIDE RECORDS SUMMARY | 2023-07-17 07:51 | External Medical Summary | Summary of Care ---
Author Name Unknown Organization [facility] Address [address] [place] [address] Phone [phone] Care Team Providers Care Public Records Officer Name Role Phone Moreno العلي MD Primary Care Provider [phone] Reason for Visit * Reason Onset Date Comments Med Request 03/30/2023 Encounter Details Date Type Department Care Team Description 03/30/2023 Telephone Family Practice [facility] [address] [place] [address] Moreno العلي MD [address] [facility] [place] [address] Med Request (/) Allergies Active Allergy Reactions Severity Noted Date Comments Metformin Nausea/vomiting Medium 11/07/2020 Nsaids 01/07/2005 Prednisone 12/26/2013 ? Hives Worries about blood sugar elevation Sulfa Antibiotics 12/26/2013 hives Tramadol Other (Please comment) 02/20/2014 Urine retention documented as of this encounter (statuses as of 04/02/2023) Medications Medication Sig Dispensed Refills Start Date [...] goal of less than 7.0% ([facility]) Take by mouth 1 Tablet [...] C, by GOLD 2017 classification ([facility]) inhale 1 puff by mouth [...] as of this encounter (statuses as of 04/02/2023) Active Problems Problem Noted Date Depression with [...] as of this encounter (statuses as of 04/02/2023) Resolved Problems Problem Noted Date Resolved Date [...] as of this encounter (statuses as of 04/02/2023) Immunizations Name Administration Dates Next Due COVID-19 [...] encounter Miscellaneous Notes * Telephone Encounter - Moreno العلي MD - 03/31/2023 9:47 AM EDT After 10 days I'll send in more * Telephone Encounter - Jairo Salguero RN [...] the patient. Thank you, Kimmie Le CPhT Loan Service Officer [facility] ([facility])(formerly telepharmacy) 03/30/2023,12:38 PM documented in this encounter Plan of Treatment Upcoming Encounters Date Type Specialty Care Team Description 09/28/2023 Office Visit Family Medicine Moreno العلي MD [address] [place] [address] Scheduled Procedures Name Priority Associated Diagnoses Date/Ti [...] D LEVEL ONCE IN A LIFETIME-USE SMARTSET# [id number] Completed 06/12/2022, 01/31/2019, 04/06/2018, Additional history exists [...] Directives occurred with: Patient Care Teams Public Records Officer Relationship Specialty Start Date End Date Moreno العلي MD [address] [place] [address] PCP - General Family Medicine 06/11/21 documented as of this encounter
--- OUTSIDE RECORDS SUMMARY | 2023-07-17 07:51 | External Medical Summary | Summary of Care ---
Author Name Unknown Organization [facility] Address [address] [place] [address] Phone [phone] Care Team Providers Care Auto Cleaner Name Role Phone Meaghan Wilson MD Primary Care Provider [phone] [phone] Reason for Visit * Reason Comments Medication Refill Encounter Details Date Type Department Care Team Description 04/06/2023 Refill Family Practice [facility] [address] [place] [address] Meaghan Wilson MD [address] [place] [address] Controlled substance agreement signed; Spinal stenosis of lumbar region without neurogenic claudication Allergies Active Allergy Reactions Severity Noted Date Comments Metformin Nausea/vomiting Medium 11/07/2020 Nsaids 01/07/2005 Prednisone 12/26/2013 ? Hives Worries about blood sugar elevation Sulfa Antibiotics 12/26/2013 hives Tramadol Other (Please comment) 02/20/2014 Urine retention documented as of this encounter (statuses as of 04/07/2023) Medications Medication Sig Dispensed Refills Start Date [...] (Fosamax)Indication s:Osteoporosis 1 tablet weekly 12 Tablet 09/10/2022 Active [...] before bedtime. 180 Tablet 1 11/20/2022 Active Fluticasone-[place] rol 250-50 MCG/ACT Inhalation Aerosol Powder Breath Activated (Advair Diskus)Indications: COPD, group C, by GOLD 2017 classification ([facility]) inhale 1 puff by mouth and [...] Pain, Severe. 60 Tablet 0 04/07/2023 Active oxyCODONE HCl 10 MG Oral Tablet (Roxicodone)Indicat ions:Controlled substance agreement signed,Spinal stenosis of lumbar region without neurogenic claudication Take 1 Tablet by mouth every 4 hours as needed for Pain, Severe. 60 Tablet 0 03/27/2023 04/06/20 23 Discontinu ed(Refill) documented as of this encounter (statuses as of 04/07/2023) Active Problems Problem Noted Date Depression with [...] as of this encounter (statuses as of 04/07/2023) Resolved Problems Problem Noted Date Resolved Date [...] as of this encounter (statuses as of 04/07/2023) Immunizations Name Administration Dates Next Due COVID-19 [...] Telephone Encounter - Meaghan Wilson MD - 04/07/2023 8:33 AM EDTSigned Prescriptions: Disp Refills oxyCODONE HCl 10 MG Oral Tablet (Roxicodon*60 Tab*0 Sig: Take 1 Tablet by mouth every 4 hours as needed for Pain, Severe. Authorizing Provider: MEAGHAN WILSON * Telephone Encounter - Betty Stone [facility] - 04/07/2023 8:28 AM EDTPending Prescriptions: Disp Refills oxyCODONE HCl 10 MG Oral Tablet (Roxicodon*60 Tab*0 Sig: Take 1 Tablet by mouth every 4 hours as needed for Pain, Severe. * Telephone Encounter - Betty Stone [facility] - 04/07/2023 8:28 AM EDTPending Prescriptions: Disp Refills oxyCODONE HCl 10 MG Oral Tablet (Roxicodon*60 Tab*0 Sig: Take 1 Tablet by mouth every 4 hours as needed for Pain, Severe. * Telephone Encounter - Betty Stone RP - 04/07/2023 8:27 AM EDT I have reviewed the patients controlled substance dispensing history in the Prescription Drug Monitoring Program in compliance with the [facility] regulations before prescribing a controlled substance. PDMP checked on 04/07/2023. Pending Prescriptions: Disp Refills oxyCODONE HCl 10 MG Oral Tablet (Roxicodo*60 Tab*0 Sig: Take 1 Tablet by mouth every 4 hours as needed for Pain, Severe. Last Visit: 03/27/2023 (in office), Visit date not found (telemedicine) Next Visit: 09/28/2023 Date medication was last filled: 03/30/23 Date medication is due for refill: 04/08/23 Pharmacy: [facility] Is this request for a controlled [...] Results Review. Please approve if appropriate. Thanks, Betty Stone PharmD Clinical Pharmacist Centralized Clinical Pharmacy Services ([facility]PS - Formerly Telepharmacy) [phone] 04/07/2023 8:27 AM * Telephone Encounter - DENILSON Dodson - 04/06/2023 11:27 AM EDT Did you pend patient's preferred pharmacy and medication before forwarding?yes Pharmacy: [facility] Pending Prescriptions: Disp Refills oxyCODONE HCl 10 [...] appointment Last date the medication was ordered: 03/27/2023 Is this request for a controlled substance?Yes, What was the last refill date 03/27/2023 w/ [id number] and dosage 10 and Urine Drug Screen Not completed Urine Drug Screen: Results for orders placed [...] Labs: Lab Results Component Value Date/Time CREAT 1.4 (H) 03/18/2023 04:22 AM CREAT 0.9 06/21/2020 03:28 PM CREAT 0.6 (L) 10/13/1996 03:40 PM POTASSIUM 4.2 03/18/2023 04:22 AM POTASSIUM 4.3 06/21/2020 03:28 PM POTASSIUM [...] AM HGBA1C 6.8 (H) 07/09/2020 03:09 PM documented in this encounter Plan of Treatment Upcoming Encounters Date Type Specialty Care Team Description 09/28/2023 Office Visit Family Medicine Meaghan Wilson MD [address] [place] [address] Scheduled Procedures Name Priority Associated Diagnoses Date/Ti [...] 03/07/2020, Additional history exists Mammogram 03/04/2023 03/04/2022, 1001/2021, 02/13/2017, Additional history exists Influenza Vaccine (FLU [...] D LEVEL ONCE IN A LIFETIME-USE SMARTSET# [id number] Completed 06/12/2022, 01/31/2019, 04/06/2018, Additional history exists [...] Advance Directives occurred with: Patient Care Teams Auto Cleaner Relationship Specialty Start Date End Date Meaghan Wilson MD [address] [place] [address] PCP - General Family Medicine 06/11/21 documented as of this encounter
--- OUTSIDE RECORDS SUMMARY | 2023-07-17 07:51 | External Medical Summary | Summary of Care ---
Author Name Unknown Organization [facility] Address [address] [place] [address] Phone [phone] Care Team Providers Care Security System Sales Consultant Name Role Phone Moreno العلي MD Primary Care Provider [phone] Reason for Visit * Reason Onset Date Comments Med Request 03/30/2023 Encounter Details Date Type Department Care Team Description 03/30/2023 Telephone Family Practice [facility] [address] [facility] [place] [address] Moreno العلي MD [address] [facility] [place] [address] Med Request (/) Allergies [...] less than 7.0% ([facility]) Take by mouth 1 Tablet in the [...] GOLD 2017 classification ([facility]) inhale 1 puff by mouth and INTO [...] the patient. Thank you, Kimmie Le CPhT Systems Test Engineer Centralized Clinical Pharmacy Services ([facility]PS)(formerly telepharmacy) 03/30/2023,12:38 PM documented in this encounter Plan of Treatment Upcoming Encounters Date Type Specialty Care Team Description 09/28/2023 Office Visit Family Medicine Moreno العلي MD [address] [place] [address] Scheduled Procedures Name Priority Associated Diagnoses Date/Ti [...] D LEVEL ONCE IN A LIFETIME-USE SMARTSET# [id number] Completed 06/12/2022, 01/31/2019, 04/06/2018, Additional history exists [...] Advance Directives occurred with: Patient Care Teams Security System Sales Consultant Relationship Specialty Start Date End Date Moreno العلي MD [address] [place] [address] PCP - General Family Medicine 06/11/21 documented as of this encounter
--- OUTSIDE RECORDS SUMMARY | 2023-07-17 07:51 | External Medical Summary | Summary of Care ---
Author Name Unknown Organization [facility] Address [address] [place] [address] Phone [phone] Care Team Providers Care Director Of Cardiac Rehabilitation Name Role Phone Moreno العلي MD Primary Care Provider [phone] Reason for Visit * Reason Onset Date Comments Med Request 03/30/2023 Encounter Details Date Type Department Care Team Description 03/30/2023 Telephone Family Practice [facility] [address] [facility] [place] [address] Moreno العلي MD [address] [facility] [place] [address] Med Request (/) [...] goal of less than 7.0% ([facility]) Take by mouth 1 Tablet [...] C, by GOLD 2017 classification ([facility]) inhale 1 puff by mouth [...] the patient. Thank you, Kimmie Le CPhT Project Structural Engineer Centralized [facility] Pharm[facility] Services ([facility]PS)(formerly telepharmacy) 03/30/2023,12:38 PM documented in this encounter Plan of Treatment Upcoming Encounters Date Type Specialty Care Team Description 09/28/2023 Office Visit Family Medicine Moreno العلي MD [address] [place] [address] [place] [address] Scheduled Procedures Name Priority Associated Diagnoses Date/Ti [...] D LEVEL ONCE IN A LIFETIME-USE SMARTSET# [id number] Completed 06/12/2022, 01/31/2019, 04/06/2018, Additional history exists [...] occurred with: Patient Care Teams Director Of Cardiac Rehabilitation Relationship Specialty Start Date End Date Moreno العلي MD [address] [place] [address] PCP - General Family Medicine 06/11/21 documented as of this encounter
--- OUTSIDE RECORDS SUMMARY | 2023-07-17 07:51 | External Medical Summary ---
Author Name Unknown Address Unknown Organization K1F:LABORATORY [facility] - [address] [place] [address] Laboratory Report Ordering Provider Test Date Status MARIO ADAM 03/20/2023 04:17:00 Final Observation Date Value Abnormality Reference (Units ) Status WBC, Total 03/20/2023 04:17:00 5.44 4.00-10.80 (K/uL) Final RBC 03/20/2023 04:17:00 3.22 3.85-5.15 (M/uL) Final Hemoglobin 03/20/2023 04:17:00 8.8 Below low normal 12.0-15.3 (g/dL) Final HCT 03/20/2023 04:17:00 28.9 Below low normal 36.0-45.2 (%) Final MCV 03/20/2023 04:17:00 89.8 81.5-97.5 (fL) Final MCH 03/20/2023 04:17:00 27.3 27.0-34.0 (pg) Final MCHC 03/20/2023 04:17:00 30.4 32.0-36.0 (g/dL) Final RDW 03/20/2023 04:17:00 15.4 11.5-15.5 (%) Final Platelets 03/20/2023 04:17:00 186 140-400 (K/uL) Final MPV 03/20/2023 04:17:00 13.4 6.6-11.1 (fL) Final Nucleated erythrocytes/100 leukocytes [Ratio] in Blood by Automated count 03/20/2023 04:17:00 0 <=0 (/100 WBCs) Final Performing Location LABORATORY [facility] - [address] [place] [address]
--- OUTSIDE RECORDS SUMMARY | 2023-07-17 07:51 | External Medical Summary ---
Author Name Unknown Address Unknown Organization K1F:LABORATORY [facility] - [address] [facility] [place] [address] Laboratory Report Ordering Provider Test Date Status MARIO ADAM 03/18/2023 04:22:00 Final Observation Date Value Abnormality Reference (Units ) Status BUN 03/18/2023 04:22:00 12 6-20 (mg/dL) Final Creatinine 03/18/2023 04:22:00 1.4 Above high normal 0.5-1.0 (mg/dL) Final Glomerular filtration rate/1.73 sq M.predicted [Volume Rate/Area] in Serum, Plasma or Blood by Creatinine-based formula (CKD-EPI) 03/18/2023 04:22:00 39 Below low normal >=60 (mL/min) Final eGFR is calculated based on the CKD-EPI 2020 equation SODIUM 03/18/2023 04:22:00 142 135-146 (m mol/L) Final Potassium 03/18/2023 04:22:00 4.2 3.5-5.1 (m mol/L) Final Cl 03/18/2023 04:22:00 103 98-107 (mm ol/L) Final CO2 03/18/2023 04:22:00 31 22-32 (mmo l/L) Final Anion gap 03/18/2023 04:22:00 8 7-15 (mmol /L) Final Glucose 03/18/2023 04:22:00 109 70-120 (mg /dL) Final Albumin 03/18/2023 04:22:00 2.9 Below low normal 3.8 -5.0 (g/dL) Final AST (Aspartate aminotransferase) 03/18/2023 04:22:00 15 10-35 (U/L) Fin al Alk Phos 03/18/2023 04:22:00 96 35-130 (U/ L) Final Bilirubin, Total 03/18/2023 04:22:00 0.3 <=1 .2 (mg/dL) Final Calcium 03/18/2023 04:22:00 8.7 8.4-10.2 ( mg/dL) Final Protein 03/18/2023 04:22:00 5.3 Below low normal 6.0 -8.3 (g/dL) Final ALT (Alanine aminotransferase) 03/18/2023 04:22:00 11 10-35 (U/L) Rai murrell Performing Location LABORATORY [facility] - [address] [place] [address] [address] [place] [address]
--- OUTSIDE RECORDS SUMMARY | 2023-07-17 07:52 | External Medical Summary | Summary of Care ---
Author Name Unknown Organization [facility] Address [address] [place] [address] Phone [phone] Care Team Providers Care Edge Dyer Name Role Phone Meaghan Wilson MD Primary Care Provider [phone] [phone] Reason for Visit * Reason Comments eRx-Medication Refill Encounter Details Date Type Department Care Team Description 03/16/2023 Refill Family Practice [facility] [address] [place] [address] Meaghan Wilson MD [address] [employer] [place] [address] Allergies Active Allergy Reactions Severity Noted Date Comments Metformin Nausea/vomiting Medium 11/07/2020 Nsaids 01/07/2005 Prednisone 12/26/2013 ? Hives Worries about blood sugar elevation Sulfa Antibiotics 12/26/2013 hives Tramadol Other (Please comment) 02/20/2014 Urine retention documented as of this encounter (statuses as of 03/17/2023) Medications Medication Sig Dispensed Refills Start Date [...] A1c goal of less than 7.0% ([facility]) Take by mouth 1 Tablet in the [...] group C, by GOLD 2017 classification ([facility]) inhale 1 puff by mouth and INTO THE LUNGS twice a day 180 Each 1 3 Active Spiriva HandiHaler 18 MCG Inhalation Capsule (tiotropium bromide) INHALE THE CONTENTS OF 1 CAPSULE EVERY DAY 90 Capsule 3 3 Active Ciprofloxacin HCl 500 MG Oral Tablet (Cipro) Take 1 Tablet by mouth in the morning and 1 Tablet before bedtime. 16 Tablet 0 3 Active oxyCODONE HCl 5 MG Oral Tablet (Oxy IR) Take 1 Tablet by mouth every 6 hours as needed for Pain, Severe. 20 Tablet 0 3 Active glipiZIDE ER 5 MG Oral Tablet Extended Release 24 Hour (Glucotrol XL) TAKE 1 TABLET ONE TIME DAILY 30 MINUTES BEFORE A MEAL 90 Tablet 1 3 Active glipiZIDE ER 5 MG Oral Tablet Extended Release 24 Hour (Glucotrol XL) take 1 tablet by mouth once daily 30 MINUTES BEFORE A MEAL 90 Tablet 1 3 03/17/20 23 Discontinued documented as of this encounter (statuses as of 03/17/2023) Active Problems Problem Noted Date Severe sepsis [...] as of this encounter (statuses as of 03/17/2023) Resolved Problems Problem Noted Date Resolved Date [...] as of this encounter (statuses as of 03/17/2023) Immunizations Name Administration Dates Next Due COVID-19 [...] encounter Miscellaneous Notes * Telephone Encounter - Lisset Hand [facility] - 03/17/2023 2:11 PM EDTSigned Prescriptions: Disp Refills glipiZIDE ER 5 MG Oral Tablet Extended Rel*90 Tab*1 Sig: TAKE 1 TABLET ONE TIME DAILY 30 MINUTES BEFORE A MEALAuthorizing Provider: MEAGHAN WILSON User: LISSET HAND documented in this encounter Plan of Treatment Scheduled Procedures Name Priority Associated Diagnoses Date/Ti [...] PAST YEAR FOR COPD 03/03/2024 03/03/2023 GFR 03/11/2024 03/11/2023, 02/15, 03/08/2023, Additional history exists DTaP,Tdap,and Td Vaccines (3 - Td or Tdap) 02/24/2027 02/24/2017, 03/02/2008 Lipid Panel 03/11/2028 03/11/2023, 05/18, 03/08/2021, Additional history exists Colonoscopy 06/06/2031 06/06/2021 Colorectal Cancer Screening 06/06/2031 Pneumococcal Vaccine: 65+ Years Completed 02/24/2017, 02/04/2016, 08/07/2005 Zoster Vaccines Completed 05/27/2020, 02/15, 07/30/2012 VITAMIN D LEVEL ONCE IN A LIFETIME-USE SMARTSET# [id number] Completed 06/12/2022, 01/31/2019, 04/06/2018, Additional history exists [...] Advance Directives occurred with: Patient Care Teams Edge Dyer Relationship Specialty Start Date End Date Meaghan Wilson MD [address] [place] [address] PCP - General Family Medicine 06/11/21 documented as of this encounter
--- OUTSIDE RECORDS SUMMARY | 2023-07-17 07:52 | External Medical Summary ---
Author Name Unknown Address Unknown Organization K1F:LABORATORY [facility] - [address] [facility] [place] [address] Laboratory Report Ordering Provider Test Date Status MARIO ADAM 03/11/2023 04:13:00 Final Observation Date Value Abnormality Reference (Units ) Status BUN 03/11/2023 04:13:00 19 6-20 (mg/dL) Final Creatinine 03/11/2023 04:13:00 1.2 Above high normal 0.5-1.0 (mg/dL) Final Glomerular filtration rate/1.73 sq M.predicted [Volume Rate/Area] in Serum, Plasma or Blood by Creatinine-based formula (CKD-EPI) 03/11/2023 04:13:00 47 Below low normal >=60 (mL/min) Final eGFR is calculated based on the CKD-EPI 2020 equation SODIUM 03/11/2023 04:13:00 142 135-146 (m mol/L) Final Potassium 03/11/2023 04:13:00 3.7 3.5-5.1 (m mol/L) Final Cl 03/11/2023 04:13:00 104 98-107 (mm ol/L) Final CO2 03/11/2023 04:13:00 29 22-32 (mmo l/L) Final Anion gap 03/11/2023 04:13:00 9 7-15 (mmol /L) Final Glucose 03/11/2023 04:13:00 99 70-120 (mg /dL) Final Albumin 03/11/2023 04:13:00 2.6 Below low normal 3.8 -5.0 (g/dL) Final AST (Aspartate aminotransferase) 03/11/2023 04:13:00 20 10-35 (U/L) Fin al Alk Phos 03/11/2023 04:13:00 125 35-130 (U/ L) Final Bilirubin, Total 03/11/2023 04:13:00 0.3 <=1 .2 (mg/dL) Final Calcium 03/11/2023 04:13:00 8.3 Below low normal 8.4 -10.2 (mg/dL) Final Protein 03/11/2023 04:13:00 5.6 Below low normal 6.0 -8.3 (g/dL) Final ALT (Alanine aminotransferase) 03/11/2023 04:13:00 16 10-35 (U/L) Rai murrell Performing Location LABORATORY [facility] - [address] [place], [place] [address] [place] [address]
--- OUTSIDE RECORDS SUMMARY | 2023-07-17 07:52 | External Medical Summary ---
Author Name Unknown Address Unknown Organization K01:LABORATORY [facility] - [address] [place] [address] Laboratory Report Ordering Provider Test Date Status KIADIANAROSA 03/11/2023 04:13:00 Final Observation Date Value Abnormality Reference (Units ) Status Vitamin B12 03/11/2023 04:13:00 794 945-1183 (pg/mL) Final Performing Location LAB[facility]ORY [facility] - [address] [place] [address]
--- OUTSIDE RECORDS SUMMARY | 2023-07-17 07:52 | External Medical Summary ---
Author Name Unknown Address Unknown Organization K01:[facility] [address] [facility] [address] [place] [address] Laboratory Report Ordering Provider Test Date Status MARIO ADAM 03/11/2023 04:13:00 Final Observation Date Value Abnormality Reference (Units ) Status Triglyceride 03/11/2023 04:13:00 95 <=174 ( mg/dL) Final Triglyceride Reference Range s (mg/dL):
<150 Acceptable
150-174 Borderline high
175-499 High
>=500 Very high Cholesterol 03/11/2023 04:13:00 82 <200 (mg /dL) Final Total Cholesterol Reference Ranges (mg/dL):
<200 Desirable
200-239 Borderline high
>=240 High HDL 03/11/2023 04:13:00 23 Below low normal >49 (mg/dL) Final HDL Cholesterol Reference Ra nges (mg/dL):
>=60 High (Desirable)
<50 Low (Undesirable) For Females
<40 Low (Undesirable) For Males NON-HDL CHOLESTEROL 03/11/2023 04:13:00 59 <=159 (mg/dL) Final Non-HDL Cholesterol Referenc e Range (mg/dL):
<100 Target level for high risk ASCVD patient
<130 Optimal for general population
130-159 Near optimal for general population
160-189 Borderline High
190-219 High
>=220 Very High LDL, (calculated) 03/11/2023 04:13:00 40 <= 129 (mg/dL) Final LDL Cholesterol Reference Ra nges (mg/dL):
<70 Target level for high risk ASCVD patient
<100 Optimal for general population
100-129 Near optimal for general population
130-159 Borderline high
160-189 High
>=190 Very high Performing Location [facility]ORY [facility] - [address] [facility] [address]
--- OUTSIDE RECORDS SUMMARY | 2023-07-17 07:52 | External Medical Summary | Summary of Care ---
Author Name Unknown Organization [facility] Address [address] [place] [address] Phone [phone] Care Team Providers Care Lab Engineer Name Role Phone Moreno العلي MD Primary Care Provider [phone] Reason for Visit * Reason Onset Date Comments Hospital Follow-Up 03/10/2023 No KAM needed Encounter Details Date Type Department Care Team Description 03/10/2023 Telephone Ancillary [facility] [address] [place] [address] Nadia Sierra, RN Hospital Follow-Up (No KAM needed) Allergies Active Allergy Reactions Severity Noted Date Comments Metformin Nausea/vomiting Medium 11/07/2020 Nsaids 01/07/2005 Prednisone 12/26/2013 ? Hives Worries about blood sugar elevation Sulfa Antibiotics 12/26/2013 hives Tramadol Other (Please comment) 02/20/2014 Urine retention documented as of this encounter (statuses as of 03/10/2023) Medications Medication Sig Dispensed Refills Start Date [...] goal of less than 7.0% ([facility]) Take by mouth 1 Tablet [...] ns:COPD, severity to be determined ([facility]) inhale contents of 1 vial [...] in the morning. 90 Tablet 09/10/2022 Active glipiZIDE ER 5 MG Oral Tablet Extended Release 24 Hour (Glucotrol XL) take 1 tablet by mouth once daily 30 MINUTES BEFORE A MEAL 90 Tablet 09/10/2022 Active Losartan Potassium 50 [...] FOR RESTLESS LEGS 90 Tablet 09/10/2022 Active Meclizine HCl 12.5 MG Oral [...] C, by GOLD 2017 classification ([facility]) inhale 1 puff by mouth [...] Pain, Severe. 20 Tablet 0 03/09/2023 Active documented as of this encounter (statuses as of 03/10/2023) Active Problems Problem Noted Date Severe sepsis [...] as of this encounter (statuses as of 03/10/2023) Resolved Problems Problem Noted Date Resolved Date [...] Morbid obesity with BMI of 40.0-44.9, adult 10/02/201912/27/2021 Nonrheumatic aortic valve stenosis 11/25/2018 06/11/2021 Body [...] as of this encounter (statuses as of 03/10/2023) Immunizations Name Administration Dates Next Due COVID-19 [...] encounter Miscellaneous Notes * Telephone Encounter - Nadia Sierra RN - 03/10/2023 8:36 AM EDT Transitions of Care Note Reason for Referral:Recent Admission Phone visit for follow up: KAM Admitted to: [facility], Date: 03/02 Discharged to: [facility], Date: 03/09 Diagnosis driving hospitalization: Complicated UTI (urinary tract infection) No KAM needed. Pt was dc'd to a SNF documented in this encounter Plan of Treatment [...] 07/01/2022, 06/11/2021, 07/09/2020, Additional history exists HbA1c 09/03/2023 03/03/2023, 01/0 12/2022, 12/27/2021, Additional history exists O2 ASSESSMENT COMPLETED IN PAST YEAR FOR COPD 03/03/2024 03/03/2023 GFR 03/09/2024 03/09/2023, 02/15, 03/07/2023, Additional history exists DTaP,Tdap,and Td Vaccines (3 - Td or Tdap) 02/24/2027 02/24/2017, 03/02/2008 Lipid Panel 06/12/2027 06/12/2022, 02/15, 03/07/2020, Additional history exists Colonoscopy 06/06/2031 06/06/2021 Colorectal Cancer Screening 06/06/2031 Pneumococcal Vaccine: 65+ Years Completed 02/24/2017, 02/04/2016, 08/07/2005 Zoster Vaccines Completed 05/27/2020, 02/15, 07/30/2012 VITAMIN D LEVEL ONCE IN A LIFETIME-USE SMARTSET# [id number] Completed 06/12/2022, 01/31/2019, 04/06/2018, Additional history exists [...] Advance Directives occurred with: Patient Care Teams Lab Engineer Relationship Specialty Start Date End Date Moreno العلي MD [address] [place] [address] PCP - General Family Medicine 06/11/21 documented as of this encounter
--- OUTSIDE RECORDS SUMMARY | 2023-07-17 07:52 | External Medical Summary ---
Author Name Unknown Address Unknown Organization K01:[facility]ORY [facility] - [address] [facility] [place] [address] Laboratory Report Ordering Provider Test Date Status MARIO ADAM 03/11/2023 04:13:00 Final Observation Date Value Abnormality Reference (Units ) Status HbA1C 03/11/2023 04:13:00 6.3 Above high normal 4. 0-5.6 (%) Final The use of HbA1c to monitor glycemic status is based on normal hemoglobin and HbA composition. This test should not be used in patients with abnormal hemoglobin that affects the half life of the red blood cell or the in vivo glycation rates. Glucose, estimated average 03/11/2023 04:13:00 134 Above high normal <126 (mg/dL) Rai murrell Performing Location LAB[facility]ORY [facility] - [address] [facility] [address]
--- OUTSIDE RECORDS SUMMARY | 2023-07-17 07:52 | External Medical Summary ---
Author Name Unknown Address Unknown Organization K1F:[facility] - [address] [place] [address] [address] [place] [address] Laboratory Report Ordering Provider Test Date Status MARIO ADAM 03/11/2023 04:13:00 Final Observation Date Value Abnormality Reference (Units ) Status WBC, Total 03/11/2023 04:13:00 10.28 4.00-10.80 (K/uL) Final RBC 03/11/2023 04:13:00 3.50 3.85-5.15 (M/uL) Final Hemoglobin 03/11/2023 04:13:00 9.3 Below low normal 12.0-15.3 (g/dL) Final HCT 03/11/2023 04:13:00 30.6 Below low normal 36.0-45.2 (%) Final MCV 03/11/2023 04:13:00 87.4 81.5-97.5 (fL) Final MCH 03/11/2023 04:13:00 26.6 27.0-34.0 (pg) Final MCHC 03/11/2023 04:13:00 30.4 32.0-36.0 (g/dL) Final RDW 03/11/2023 04:13:00 15.4 11.5-15.5 (%) Final Platelets 03/11/2023 04:13:00 172 140-400 (K/uL) Final MPV 03/11/2023 04:13:00 12.8 6.6-11.1 (fL) Final Nucleated erythrocytes/100 leukocytes [Ratio] in Blood by Automated count 03/11/2023 04:13:00 0 <=0 (/100 WBCs) Final Performing Location [facility] - [address] [place] [address]
--- OUTSIDE RECORDS SUMMARY | 2023-07-17 07:53 | External Medical Summary ---
Author Name Unknown Address Unknown Organization K1F:[facility] - [address] [address] Laboratory Report Ordering Provider Test Date Status MALU CHING 03/09/2023 04:55:00 Final Observation Date Value Abnormality Reference (Units ) Status BUN 03/09/2023 04:55:00 23 Above high normal 6-20 (mg/dL) Final Creatinine 03/09/2023 04:55:00 1.2 Above high normal 0.5-1.0 (mg/dL) Final Glomerular filtration rate/1.73 sq M.predicted [Volume Rate/Area] in Serum, Plasma or Blood by Creatinine-based formula (CKD-EPI) 03/09/2023 04:55:00 50 Below low normal >=60 (mL/min) Final eGFR is calculated based on the CKD-EPI 2020 equation SODIUM 03/09/2023 04:55:00 140 135-146 (m mol/L) Final Potassium 03/09/2023 04:55:00 3.6 3.5-5.1 (m mol/L) Final Cl 03/09/2023 04:55:00 104 98-107 (mm ol/L) Final CO2 03/09/2023 04:55:00 29 22-32 (mmo l/L) Final Anion gap 03/09/2023 04:55:00 7 7-15 (mmol /L) Final Glucose 03/09/2023 04:55:00 127 Above high normal 70 -120 (mg/dL) Final Calcium 03/09/2023 04:55:00 8.6 8.4-10.2 ( mg/dL) Final Performing Location LABORATORY [facility] - [address] [place] [address]
--- OUTSIDE RECORDS SUMMARY | 2023-07-17 07:53 | External Medical Summary ---
Author Name Unknown Address Unknown Organization : Laboratory Report Ordering Provider Test Date Status ROCIO WHIPPLE 03/08/2023 16:04:50 Final Observation Date Value Abnormality Reference (Units ) Status Glucose Point of Care 03/08/2023 16:04:50 134 Above high normal 70-120 (mg/dL) Final Performing Location
--- OUTSIDE RECORDS SUMMARY | 2023-07-17 07:53 | External Medical Summary ---
Author Name Unknown Address Unknown Organization : Laboratory Report Ordering Provider Test Date Status ROCIO WHIPPLE 03/08/2023 07:38:12 Final Observation Date Value Abnormality Reference (Units ) Status Glucose Point of Care 03/08/2023 07:38:12 113 70-120 (mg/dL) Final Performing Location
--- OUTSIDE RECORDS SUMMARY | 2023-07-17 07:53 | External Medical Summary ---
Author Name Unknown Address Unknown Organization K1F:[facility] - [address] [place] [address] Laboratory Report Ordering Provider Test Date Status MALU CHING 03/09/2023 04:55:00 Final Observation Date Value Abnormality Reference (Units ) Status Calcium.ionized [Moles/volume] in Serum or Plasma by Ion-selective membrane electrode (ISE) 03/09/2023 04:55:00 1.22 1.13-1.32 (mmol/L) Final This test was developed and its performance characteristics dtermined by [employer]. It has not been cleared or approved by the [place] Food and Drug Administration Performing Location [facility] - [address] [place] [address]
--- OUTSIDE RECORDS SUMMARY | 2023-07-17 07:53 | External Medical Summary | Summary of Care ---
Author Name Unknown Organization [facility] Address [address] [place] [address] Phone [phone] Care Team Providers Care Product Inspection Coordinator Name Role Phone Moreno العلي MD Primary Care Provider [phone] Reason for Visit * Reason Comments Fall * Auth/Cert Specialty Diagnoses / Procedures Referred By Erika t Referred To Contact Referral ID Status Reason Start Date Expiration Date Visits Re quested Visits Authorized [id number] Encounter Details Date Type Department Care Team Description 03/02/2023 - 03/09/[address] [facility] 4th Floor [address], [place] [id number] Santo Devi[address] [address] Carl Adrian MD [address], [place] [phone] Nigel Washington MD [address] [facility] [place], [place] [id number] Andi Richmond MD [address] [place] [address] Various: OP,EKG Allergies Active Allergy Reactions Severity Noted Date [...] hemoglobin A1c goal of less than 7.0% ([facility]) Take by mouth 1 Tablet [...] Solution (Proventil)Indicat ions:COPD, severity to be determined ([facility]) inhale contents of 1 vial [...] the morning. 90 Tablet 3 3 Active glipiZIDE ER 5 MG Oral Tablet Extended Release 24 Hour (Glucotrol XL) take 1 tablet by mouth once daily 30 MINUTES BEFORE A MEAL 90 Tablet 1 3 Active Losartan Potassium 50 MG Oral [...] :COPD, group C, by GOLD 2017 classification ([facility]) inhale 1 puff by mouth [...] Pain, Severe. 20 Tablet 0 3 Active oxyCODONE-Acetamin ophen 10-325 MG Oral Tablet (Percocet)Indicati ons:Spinal stenosis of lumbar region without neurogenic claudication Take 1 Tablet by mouth every 6 hours as needed for Severe Pain, 120 Tablet 0 3 023 Discontinued Ciprofloxacin HCl 750 MG Oral Tablet (Cipro) Take 1 Tablet by mouth in the morning and 1 Tablet before bedtime. Do all this for 8 days. 16 Tablet 0 3 023 Discontinued(Re fill) Ciprofloxacin HCl 500 MG Oral Tablet (Cipro) Take 1 Tablet by mouth in the morning and 1 Tablet before bedtime. 16 Tablet 0 3 023 Discontinued(Re fill) documented as of this encounter (statuses as [...] HTN protocol #16. PURE HYPERCHOLESTEROLEM 09/18/2006 07/26/20 Overview: Per Lipid Taxonomy. ADVANCE DIRECTIVE INFORMATION [...] Sign Reading Time Taken Comments Blood Pressure 152/83 03/09/2023 7:45 AM EDT Pulse 97 03/09/2023 7:45 AM EDT Temperature 36.6 C (97.9 F) 03/09/2023 7:45 AM ED T Respiratory Rate 18 03/09/2023 7:45 AM EDT Oxygen Saturation 97% 03/09/2023 7:45 AM EDT Inhaled Oxygen Concentration - - Weight 110.6 kg (243 lb 13.3 oz) 03/09/2023 5:58 AM EDT Height 157.5 cm (5' 2") 03/03/2023 5:54 AM EDT Body Mass Index 44.6 03/03/2023 5:54 AM EDT documented in this encounter Functional Status Functional Status Response Date of Assess ment Do you have serious difficul ty walking or climbing stairs? (5 years old or older) No 03/04/2023 documented as of this encounter Discharge Summaries * Andi Richmond MD - 03/09/2023 9:32 AM EDT [facility] [address] Admission Date: 03/02/2023 Discharge Date: 03/09/2023 RECOMMENDED TO DO FOR NEXT PROVIDER(S): Complete Ciprofloxacin course REASON(S) FOR MEDICATION CHANGE(S): Antibiotics for complicated UTI and bacteremia DISPOSITION ON DISCHARGE: home with health services Active Hospital Problems Diagnosis *Principal Diagnosis - Complicated UTI (urinary tract infection) Hydronephrosis, left Depression with anxiety Morbid obesity due to excess calories ([facility]) COPD, group C, by GOLD 2017 classification ([facility]) HTN, goal below 130/80 RLS (restless legs syndrome) Gastroesophageal reflux disease without esophagitis Type 2 diabetes mellitus with hemoglobin A1c goal of less than 7.0% ([facility]) Resolved Hospital Problems Diagnosis Date Resolved Septic shock ([facility]) 03/07/2023 ADMISSION HISTORY & PHYSICAL EXAM (focused): Per admitting physician, HPI: This is a 72 yo woman with below pmh that includes dm2, copd c, obesity, on chronic supplemental o2, htn, restless legs, and prior kidney stones. She reports nausea vomiting yesterday and that she fell out of her wheel chair today. She came to ED, where she was shivering and while being worked up for trauma, was found to have edematous left kidney with obstructing kidney stones. Case was discussed by ED provider with urologist who felt that she didn't need immediate stenting and recommended to admit her on abx and that she could be stented tomorrow. He requested that we contact the office in morning. Patient was hypotensive in ED and after sepsis fluid bolus, was placed on pressors. I discussed case with dr. Salvador from EICU and admission to ICU was felt warranted. Patient denies headache. No diarrhea. She said that she has been making very little urine. Constitutional: (+) ill appearing elderly woman resting in bed; she is wearing supplemental o2 and shivering. HEENT: normal: normocephalic, atraumatic Eyes: sclera and conjunctiva normal; crust around eye lids. Neck: supple CV: normal rate Chest: normal respiratory effort, lungs clear to auscultation Abdomen: obese but soft, bowel sounds normal, no tenderness Extremities: no edema; feet warm Skin: warm, dry, intact: Neuro: alert, oriented to person, place, weak but otherwise non-focal HOSPITAL COURSE (focused): Patient was admitted to the ICU for septic shock due to complicated UTI from infected kidney stone as well as bacteremia. Blood and Urine cultures grew E.Coli. She was started on vancomycin and Zosyn. She was given pressors to maintain decent map. Urology was consulted and recommended urgent cystoscopy with stent placement to treat infected stone. Patient had procedure done and findings of pyelonephritis were seen. She tolerated procedure well without any complications. On day 3 of admission, patient was transferred out of the ICU to the floors after maintaining decent blood pressure on IV fluids. Her antibiotics were transitioned to Rocephin after MRSA came back negative. Patient continuedto improve clinically and was stable on home 3 L oxygen via nasal cannula. Repeat blood cultures did not show any growth till date. Infectious Disease was consulted for bacteremia and recommended transition to ciprofloxacin upon discharge. PT OT was consulted and recommended patient be discharged to short- term rehab. Patient refused short-term rehab and requested she be discharged home with health services. She has her son and daughter living with her and says they can provide care for her throughout the day. She was stable on day of discharge. Operations & Procedures: Cystoscopy with placement of temporary indwelling double-J stent Complications: none significant Significant Lab and Imaging Results: As mentioned above Results for orders placed or performed during the hospital encounter of 03/02/23 CBC Result Value Ref Range WBC 28.63 (H) 4.00 - 10.80 K/uL RBC 4.29 3.85 - 5.15 M/uL HGB 12.0 12.0 - 15.3 g/dL HCT 37.0 36.0 - 45.2 % MCV 86.2 81.5 - 97.5 fL MCH 28.0 27.0 - 34.0 pg MCHC 32.4 32.0 - 36.0 g/dL RDW 15.1 11.5 - 15.5 % PLT 157 140 - 400 K/uL MPV 11.4 6.6 - 11.1 fL nRBCs 0 <=0 /100 WBCs RESPIRATORY PATHOGEN PANEL, PCR Result Value Ref Range Adenovirus by PCR Negative Negative Coronavirus 229E by PCR Negative Negative Coronavirus HKU1 by PCR Negative Negative Coronavirus NL63 by PCR Negative Negative Coronavirus OC43 by PCR Negative Negative Coronavirus SARS-CoV-2 by PCR Negative Negative Human Metapneumovirus by PCR Negative Negative Rhinovirus/Enterovirus by PCR Negative Negative Influenza A Virus by PCR Negative Negative Influenza B Virus by PCR Negative Negative Parainfluenza Virus 1 by PCR Negative Negative Parainfluenza Virus 2 by PCR Negative Negative Parainfluenza Virus 3 by PCR Negative Negative Parainfluenza Virus 4 by PCR Negative Negative Respiratory Syncytial Virus by PCR Negative Negative Bordetella pertussis by PCR Negative Negative Chlamydia pneumoniae by PCR Negative Negative Mycoplasma pneumoniae by PCR Negative Negative Bordetella parapertussis by PCR Negative Negative COMPREHENSIVE METABOLIC PANEL Result Value Ref Range BUN 32 (H) 6 - 20 mg/dL Creatinine 2.4 (H) 0.5 - 1.0 mg/dL Estimated Glomerular Filtration Rate 21 (L) >=60 mL/min Sodium 134 (L) 135 - 146 mmol/L Potassium 4.6 3.5 - 5.1 mmol/L Chloride 100 98 - 107 mmol/L CO2 25 22 - 32 mmol/L Anion Gap 9 7 - 15 mmol/L Glucose 122 (H) 70 - 120 mg/dL Albumin 3.1 (L) 3.8 - 5.0 g/dL AST 30 10 - 35 U/L Alkaline Phosphatase 86 35 - 130 U/L Bilirubin, Total 0.7 <=1.2 mg/dL Calcium 8.7 8.4 - 10.2 mg/dL Protein 6.6 6.0 - 8.3 g/dL ALT 18 10 - 35 U/L LACTATE,WHOLE BLOOD Result Value Ref Range Lactate, Whole Blood 2.4 (H) 0.4 - 2.0 mmol/L LIPASE Result Value Ref Range Lipase 10 (L) 13 - 60 U/L URINALYSIS, REFLEX TO MICROSCOPIC Result Value Ref Range Color, Urine Yellow Light Yellow, Yellow, Dark Yellow Clarity, Urine Cloudy (A) Clear Glucose, Urine Negative Negative mg/dL Bilirubin, Urine Small (A) Negative Ketone, Urine Negative Negative mg/dL Specific [place], Urine 1.017 1.003 - 1.030 Blood, Urine Large (A) Negative pH, Urine 5.5 5.0 - 7.5 Units Protein, Urine >=300 (A) Negative mg/dL Urobilinogen, Urine 1.0 0.2, 1.0 mg/dL Nitrite, Urine Negative Negative Esterase, Urine Large (A) Negative MICROSCOPIC EXAM, URINE Result Value Ref Range RBC, Urine WBC, Urine 50+ (A) 0 - 2 /HPF Bacteria, Urine >200 (A) 0 - 25 /HPF CULTURE, BLOOD Result Value Ref Range Blood Culture Growth Both bottles of set Escherichia coli (AA) Stain Description Anaerobic bottle Gram negative bacilli (AA) Stain Description Aerobic bottle Gram negative bacilli (AA) Susceptibility Escherichia coli - MICROBROTH DILUTIONS Ampicillin Susceptible Cefepime Susceptible Ceftriaxone Susceptible Ciprofloxacin Susceptible Gentamicin Susceptible Piperacillin Tazobactam Susceptible Trimeth/Sulfamethoxazole Susceptible CULTURE, BLOOD Result Value Ref Range Blood Culture Growth (AA) Both bottles of set Lactose fermenting gram negative bacilli Stain Description Anaerobic bottle Gram negative bacilli (AA) Stain Description Aerobic bottle Gram negative bacilli (AA) MRSA SCREEN, PCR Result Value Ref Range MRSA PCR Result Negative Negative BASIC METABOLIC PANEL Result Value Ref Range BUN 38 (H) 6 - 20 mg/dL Creatinine 2.5 (H) 0.5 - 1.0 mg/dL Estimated Glomerular Filtration Rate 20 (L) >=60 mL/min Sodium 138 135 - 146 mmol/L Potassium 4.3 3.5 - 5.1 mmol/L Chloride 106 98 - 107 mmol/L CO2 20 (L) 22 - 32 mmol/L Anion Gap 12 7 - 15 mmol/L Glucose 103 70 - 120 mg/dL Calcium 7.5 (L) 8.4 - 10.2 mg/dL HEMOGLOBIN A1C Result Value Ref Range Hemoglobin A1C 6.0 (H) 4.0 - 5.6 % Estimated Average Glucose 126 (H) <126 mg/dL CBC Result Value Ref Range WBC 29.75 (H) 4.00 - 10.80 K/uL RBC 3.81 3.85 - 5.15 M/uL HGB 10.5 (L) 12.0 - 15.3 g/dL HCT 33.2 (L) 36.0 - 45.2 % MCV 87.1 81.5 - 97.5 fL MCH 27.6 27.0 - 34.0 pg MCHC 31.6 32.0 - 36.0 g/dL RDW 15.3 11.5 - 15.5 % PLT 139 (L) 140 - 400 K/uL MPV 13.2 6.6 - 11.1 fL nRBCs 0 <=0 /100 WBCs BLOOD CULTURE PCR IDENTIFICATION-ANAEROBIC Result Value Ref Range Escherichia coli DNA by PCR Positive (AA) Negative CTX-M (Cephalosporin resistance gene) Negative Negative IMP (Carbapenem resistance gene) Negative Negative KPC (carbapenem-resistance gene) Negative Negative VIM (Carbapenem resistance gene) Negative Negative OXA-48 (Carbapenem resistance gene) Negative Negative NDM (Carbapenem resistance gene) Negative Negative mcr-1 (Colistin resistance gene) Negative Negative Comment Negative for all other bacterial targets and resistance genes. LACTATE Result Value Ref Range Lactate 1.7 0.4 - 2.0 mmol/L DIFFERENTIAL, TECHNOLOGIST REVIEW Result Value Ref Range WBC 29.75 (H) 4.00 - 10.80 K/uL Neutrophils % 98.0 (H) 40.0 - 75.0 % Monocytes % 2.0 1.0 - 11.0 % Absolute Neutrophils 29.16 (H) 1.80 - 7.70 K/uL Absolute Monocytes 0.60 0.00 - 1.10 K/uL Nakul Cells Moderate (A) None Seen CULTURE, URINE, QUANTITATIVE Specimen: Urine, Cystoscopy Result Value Ref Range Culture Growth >100,000 colonies/mL Escherichia coli (A) Susceptibility Escherichia coli - MICROBROTH DILUTIONS Ampicillin Susceptible Cefazolin Susceptible Cefepime Susceptible Ceftriaxone Susceptible Ciprofloxacin* Susceptible * Due to serious side effects, the FDA has advised against using Ciprofloxacin to treat uncomplicated UTIs and respiratory tract infections unless there are no alternative treatment options. Gentamicin Susceptible Nitrofurantoin Susceptible Piperacillin Tazobactam Susceptible Trimeth/Sulfamethoxazole Susceptible TSH WITH FREE T4 IF INDICATED Result Value Ref Range TSH 2.12 0.27 - 4.20 uIU/mL CALCIUM, IONIZED, WHOLE BLOOD Result Value Ref Range Calcium, Ionized, Whole Blood 1.05 (L) 1.13 - 1.32 mmol/L BASIC METABOLIC PANEL Result Value Ref Range BUN 41 (H) 6 - 20 mg/dL Creatinine 2.3 (H) 0.5 - 1.0 mg/dL Estimated Glomerular Filtration Rate 22 (L) >=60 mL/min Sodium 135 135 - 146 mmol/L Potassium 4.7 3.5 - 5.1 mmol/L Chloride 104 98 - 107 mmol/L CO2 20 (L) 22 - 32 mmol/L Anion Gap 11 7 - 15 mmol/L Glucose 130 (H) 70 - 120 mg/dL Calcium 7.9 (L) 8.4 - 10.2 mg/dL MAGNESIUM Result Value Ref Range Magnesium 1.7 1.5 - 2.6 mg/dL CALCIUM, IONIZED, WHOLE BLOOD Result Value Ref Range Calcium, Ionized, Whole Blood 1.14 1.13 - 1.32 mmol/L CBC Result Value Ref Range WBC 19.91 (H) 4.00 - 10.80 K/uL RBC 3.63 3.85 - 5.15 M/uL HGB 10.1 (L) 12.0 - 15.3 g/dL HCT 32.2 (L) 36.0 - 45.2 % MCV 88.7 81.5 - 97.5 fL MCH 27.8 27.0 - 34.0 pg MCHC 31.4 32.0 - 36.0 g/dL RDW 15.5 11.5 - 15.5 % PLT 122 (L) 140 - 400 K/uL MPV 12.6 6.6 - 11.1 fL nRBCs 0 <=0 /100 WBCs BASIC METABOLIC PANEL Result Value Ref Range BUN 41 (H) 6 - 20 mg/dL Creatinine 2.1 (H) 0.5 - 1.0 mg/dL Estimated Glomerular Filtration Rate 24 (L) >=60 mL/min Sodium 135 135 - 146 mmol/L Potassium 4.2 3.5 - 5.1 mmol/L Chloride 104 98 - 107 mmol/L CO2 20 (L) 22 - 32 mmol/L Anion Gap 11 7 - 15 mmol/L Glucose 98 70 - 120 mg/dL Calcium 7.6 (L) 8.4 - 10.2 mg/dL MAGNESIUM Result Value Ref Range Magnesium 2.0 1.5 - 2.6 mg/dL PHOSPHORUS Result Value Ref Range Phosphorus 3.1 2.5 - 4.8 mg/dL CBC Result Value Ref Range WBC 14.26 (H) 4.00 - 10.80 K/uL RBC 3.34 3.85 - 5.15 M/uL HGB 9.2 (L) 12.0 - 15.3 g/dL HCT 29.3 (L) 36.0 - 45.2 % MCV 87.7 81.5 - 97.5 fL MCH 27.5 27.0 - 34.0 pg MCHC 31.4 32.0 - 36.0 g/dL RDW 15.6 11.5 - 15.5 % PLT 105 (L) 140 - 400 K/uL MPV 12.5 6.6 - 11.1 fL nRBCs 0 <=0 /100 WBCs CALCIUM, IONIZED Result Value Ref Range Calcium, Ionized 1.05 (L) 1.13 - 1.32 mmol/L CULTURE, BLOOD Result Value Ref Range Blood Culture Growth No growth to date BASIC METABOLIC PANEL Result Value Ref Range BUN 43 (H) 6 - 20 mg/dL Creatinine 2.0 (H) 0.5 - 1.0 mg/dL Estimated Glomerular Filtration Rate 26 (L) >=60 mL/min Sodium 137 135 - 146 mmol/L Potassium 4.1 3.5 - 5.1 mmol/L Chloride 104 98 - 107 mmol/L CO2 24 22 - 32 mmol/L Anion Gap 9 7 - 15 mmol/L Glucose 101 70 - 120 mg/dL Calcium 7.7 (L) 8.4 - 10.2 mg/dL MAGNESIUM Result Value Ref Range Magnesium 2.4 1.5 - 2.6 mg/dL PHOSPHORUS Result Value Ref Range Phosphorus 3.5 2.5 - 4.8 mg/dL CBC Result Value Ref Range WBC 11.42 (H) 4.00 - 10.80 K/uL RBC 3.18 3.85 - 5.15 M/uL HGB 8.8 (L) 12.0 - 15.3 g/dL HCT 27.8 (L) 36.0 - 45.2 % MCV 87.4 81.5 - 97.5 fL MCH 27.7 27.0 - 34.0 pg MCHC 31.7 32.0 - 36.0 g/dL RDW 15.8 11.5 - 15.5 % PLT 87 (L) 140 - 400 K/uL MPV 12.3 6.6 - 11.1 fL nRBCs 0 <=0 /100 WBCs CALCIUM, IONIZED Result Value Ref Range Calcium, Ionized 1.10 (L) 1.13 - 1.32 mmol/L BASIC METABOLIC PANEL Result Value Ref Range BUN 41 (H) 6 - 20 mg/dL Creatinine 1.8 (H) 0.5 - 1.0 mg/dL Estimated Glomerular Filtration Rate 30 (L) >=60 mL/min Sodium 136 135 - 146 mmol/L Potassium 3.9 3.5 - 5.1 mmol/L Chloride 103 98 - 107 mmol/L CO2 24 22 - 32 mmol/L Anion Gap 9 7 - 15 mmol/L Glucose 99 70 - 120 mg/dL Calcium 8.2 (L) 8.4 - 10.2 mg/dL MAGNESIUM Result Value Ref Range Magnesium 2.4 1.5 - 2.6 mg/dL PHOSPHORUS Result Value Ref Range Phosphorus 3.1 2.5 - 4.8 mg/dL CBC Result Value Ref Range WBC 10.37 4.00 - 10.80 K/uL RBC 3.46 3.85 - 5.15 M/uL HGB 9.5 (L) 12.0 - 15.3 g/dL HCT 30.1 (L) 36.0 - 45.2 % MCV 87.0 81.5 - 97.5 fL MCH 27.5 27.0 - 34.0 pg MCHC 31.6 32.0 - 36.0 g/dL RDW 15.9 11.5 - 15.5 % PLT 100 (L) 140 - 400 K/uL MPV 12.8 6.6 - 11.1 fL nRBCs 0 <=0 /100 WBCs CALCIUM, IONIZED Result Value Ref Range Calcium, Ionized 1.16 1.13 - 1.32 mmol/L BASIC METABOLIC PANEL Result Value Ref Range BUN 35 (H) 6 - 20 mg/dL Creatinine 1.5 (H) 0.5 - 1.0 mg/dL Estimated Glomerular Filtration Rate 37 (L) >=60 mL/min Sodium 137 135 - 146 mmol/L Potassium 3.7 3.5 - 5.1 mmol/L Chloride 104 98 - 107 mmol/L CO2 25 22 - 32 mmol/L Anion Gap 8 7 - 15 mmol/L Glucose 124 (H) 70 - 120 mg/dL Calcium 8.5 8.4 - 10.2 mg/dL MAGNESIUM Result Value Ref Range Magnesium 2.2 1.5 - 2.6 mg/dL PHOSPHORUS Result Value Ref Range Phosphorus 2.5 2.5 - 4.8 mg/dL CBC Result Value Ref Range WBC 10.31 4.00 - 10.80 K/uL RBC 3.38 3.85 - 5.15 M/uL HGB 9.5 (L) 12.0 - 15.3 g/dL HCT 29.6 (L) 36.0 - 45.2 % MCV 87.6 81.5 - 97.5 fL MCH 28.1 27.0 - 34.0 pg MCHC 32.1 32.0 - 36.0 g/dL RDW 15.9 11.5 - 15.5 % PLT 103 (L) 140 - 400 K/uL MPV 12.6 6.6 - 11.1 fL nRBCs 0 <=0 /100 WBCs CALCIUM, IONIZED Result Value Ref Range Calcium, Ionized 1.20 1.13 - 1.32 mmol/L BASIC METABOLIC PANEL Result Value Ref Range BUN 29 (H) 6 - 20 mg/dL Creatinine 1.3 (H) 0.5 - 1.0 mg/dL Estimated Glomerular Filtration Rate 44 (L) >=60 mL/min Sodium 138 135 - 146 mmol/L Potassium 3.6 3.5 - 5.1 mmol/L Chloride 104 98 - 107 mmol/L CO2 26 22 - 32 mmol/L Anion Gap 8 7 - 15 mmol/L Glucose 128 (H) 70 - 120 mg/dL Calcium 8.8 8.4 - 10.2 mg/dL MAGNESIUM Result Value Ref Range Magnesium 1.8 1.5 - 2.6 mg/dL PHOSPHORUS Result Value Ref Range Phosphorus 2.5 2.5 - 4.8 mg/dL CBC Result Value Ref Range WBC 8.40 4.00 - 10.80 K/uL RBC 3.49 3.85 - 5.15 M/uL HGB 9.3 (L) 12.0 - 15.3 g/dL HCT 30.7 (L) 36.0 - 45.2 % MCV 88.0 81.5 - 97.5 fL MCH 26.6 27.0 - 34.0 pg MCHC 30.3 32.0 - 36.0 g/dL RDW 15.6 11.5 - 15.5 % PLT 117 (L) 140 - 400 K/uL MPV 13.5 6.6 - 11.1 fL nRBCs 0 <=0 /100 WBCs *Note: Due to a large number of results and/or encounters for the requested time period, some results have not been displayed. A complete set of results can be found in Results Review. Results Pending at Discharge: Lab Results Pending at Discharge: EXTRA TUBES Routine BASIC METABOLIC PANEL Routine MAGNESIUM STAT PHOSPHORUS STAT CBC STAT CALCIUM, IONIZED Routine MEDICATION UPDATES AT DISCHARGE START taking these medications INSTRUCTIONS ciprofloxacin 500 MG Tablet Commonly known as: Cipro Take 1 Tablet by mouth in the morning and 1 Tablet before bedtime. oxyCODONE 5 MG immediate release tablet Commonly known as: Oxy IR Take 1 Tablet by mouth every 6 hours as needed for Pain, Severe. CHANGE how you take these medications INSTRUCTIONS traZODone 50 MG Tablet Commonly known as: Gino What changed: how much to take how to take this when to take this reasons to take this Notes to patient: Sleep aid TAKE 1 TABLET BY MOUTH EVERYDAY AT BEDTIME CONTINUE taking these medications INSTRUCTIONS Albuterol Sulfate (2.5 MG/3ML) 0.083% nebulizer solution Commonly known as: Proventil Notes to patient: For wheezing and shortness of breath inhale contents of 1 vial ( 3 milliliters ) in nebulizer by mouth and INTO THE LUNGS every 4 hours if needed Strength: (2.5 MG/3ML) 0.083% alendronate 70 MG Tablet Commonly known as: Fosamax Notes to patient: Improves bone density 1 tablet weekly amitriptyline 10 MG Tablet Commonly known as: Elavil Notes to patient: For mood or nerve pain take 1 tablet by mouth at bedtime aspirin enteric coated 81 MG Tbec Commonly known as: Aspirin Low Dose Notes to patient: Tomorrow Take by mouth 1 Tablet in the morning. atorvaSTATin 40 MG Tablet Commonly known as: Lipitor Notes to patient: Reduces cholesterol Take 1 Tablet by mouth in the morning. Baclofen 10 MG Tablet Commonly known as: Lioresal Notes to patient: Muscle relaxant Take 1 Tablet by mouth in the morning and 1 Tablet before bedtime. BD Swab Single Use Regular Pads Use up to 3 times a day as directed Dx: E11.9 buPROPion XL 150 MG Tb24 Commonly known as: Wellbutrin XL Notes to patient: Mood Take 1 Tablet by mouth in the morning. Comfort Shield Adult Diapers Misc Adult large pull ups use 2 daily and as needed. CVS D3 50 MCG (1999 [place]) Capsule Generic drug: Cholecalciferol Notes to patient: Vitamin Take by mouth 1 Capsule in the morning. Docusate Sodium 100 MG Capsule Commonly known as: Colace Notes to patient: Stool softener Take one capsule by mouth twice a day as needed for constipation. Fluticasone-Salmeterol 250-50 MCG/ACT inhaler Commonly known as: Advair Diskus Notes to patient: Prevents breathing problems inhale 1 puff by mouth and INTO THE LUNGS twice a day Furosemide 20 MG Tablet Commonly known as: Lasix Notes to patient: Water pill Take 1 Tablet by mouth in the morning. glipiZIDE XL 5 MG Tb24 Commonly known as: Glucotrol XL Notes to patient: Lowers blood sugar take 1 tablet by mouth once daily 30 MINUTES BEFORE A MEAL Ipratropium-Albuterol 20-100 MCG/ACT Inhaler Commonly known as: Combivent Respimat Notes to patient: Opens airways in lungs for improved breathing inhale 1 puff by mouth four times a day Iron (Ferrous Sulfate) 325 (65 Fe) MG Tabs Notes to patient: Supplement Take 1 Tab by mouth daily. Knee Brace/Hinged Bars Large Misc Use for right knee instability LORAzepam 0.5 MG Tablet Commonly known as: Ativan Notes to patient: Anxiety Take by mouth 1 Tablet every 8 hours as needed for Anxiety. losartan 50 MG Tablet Commonly known as: Cozaar Notes to patient: Lowers blood pressure Take 1.5 Tablets by mouth in the morning. meclizine 12.5 MG Tablet Commonly known as: Antivert Notes to patient: Dizziness Take 1 Tablet by mouth 3 times a day as needed for Dizziness. montelukast 10 MG Tablet Commonly known as: Singulair Notes to patient: Allergies/asthma Take 1 Tablet by mouth in the morning. Nitroglycerin 0.4 MG Subl Commonly known as: Nitrostat Notes to patient: For Acute Chest pain. Do not chew or swallow. Allow to dissolve under tongue. Please sit down or lay down when taking this medicine as it may cause lightheaded/dizzy. If pain is notresolved after 3rd tablet, call 911. ONE TAB UNDER TONGUE NEEDED FOR CHEST PAIN MAXIMUM 3 DOSES ondansetron 4 MG Tablet Commonly known as: Zofran Notes to patient: Nausea TAKE 2 TABLETS EVERY 8 HOURS NEEDED FOR NAUSEA pantoprazole 40 MG Tbec Commonly known as: Protonix Notes to patient: Decreases stomach acid TAKE 1 TABLET TWICE DAILY 30 MINUTES BEFORE BREAKFAST AND DINNER potassium chloride ER 10 MEQ Tbcr Notes to patient: Supplement Take 1 Tablet by mouth in the morning and 1 Tablet before bedtime. rOPINIRole HCl 3 MG Tablet Notes to patient: Restless legs TAKE 1 TABLET BY MOUTH AT BEDTIME. 1-3 HOURS BEFORE BEDTIME WITH FOOD FOR RESTLESS LEGS Spiriva HandiHaler 18 MCG inhalation Capsule Generic drug: tiotropium bromide Notes to patient: Prevents breathing problems INHALE THE CONTENTS OF 1 CAPSULE EVERY DAY True Metrix Blood Glucose Test Strp Generic drug: Glucose Blood Use up to 3 times a day as directed Dx: E11.9 True Metrix Level 1 Low Soln Use up to 3 times a day as directed Dx: E11.9 True Metrix Meter w/Device Kit Use up to 3 times a day as directed Dx: E11.9 TRUEplus Lancets 33G Misc Use up to 3 times a day as directed Dx: E11.9 Vitamin B-12 1000 MCG Tablet Commonly known as: Cyanocobalamin Notes to patient: Vitamin Take by mouth 1 Tablet in the morning. STOP taking these medications oxyCODONE-Acetaminophen 10-325 MG per tablet Commonly known as: Percocet SCHEDULED FOLLOW-UP: Future Appointments This patient does not currently have any appointments scheduled. Other Information Indwelling Devices: LINES None Vital Signs (last recorded): Most Recent Systolic BP: 152 mmHg (03/09/23744) Most Recent Diastolic BP: 83 mmHg (03/09/23744) Pulse: 97 (03/09/23744) Resp: 18 (03/09/23744) Most Recent Temperature: 36.61 C (03/09/23744) Weight: 110.6 kg (243 lb 13.3 oz) (03/09/23557) SpO2: 97 % (03/09/23744) O2 flow rate: 2.5 L/MIN (03/09/23744) Allergies: Metformin, Nsaids, Prednisone, Sulfa antibiotics, and Tramadol Activity: as tolerated Diet: age appropriate diet Code status (this admission): Full Code Discussion of adv directives occurred with - adult: Patient Condition on Discharge: stable Isolation status: None Cognition: normal HOSPITAL CONSULTS ORDERED: UROLOGY CONSULT IP CRITICAL CARE MEDICINE CONSULT IP ADULT PHYSICAL THERAPY CONSULT IP ADULT OCCUPATIONAL THERAPY CONSULT IP INFECTIOUS DISEASE CONSULT IP REFERRING PHYSICIAN: Ref: [id number]] NO STREET ADDRESS AVAILABLE None (office) None (fax) PRIMARY CARE PROVIDER: PCP: Moreno العلي MD [address] [facility] / [place] [address] (office) [phone] (fax) Note: To contact a physician responsible for this patients hospital care, please call [facility] [phone]. I certify this patient is confined to the home and needs intermittent detention care, physical therapy and/or speech therapy, or continues to need occupational therapy. The patient is under my care and I have authorized services on this plan of care. The clinical findings of decrease in functional mobility secondary to decreased strength, decreased balance, and decreased endurance due to recent hospitalization and overall medical condition support the need for home health, and the patientdemonstrates a considerable and taxing effort when attempting to leave the home. The patient had a [id number] encounter with an allowed provider type on 03/07/2023 and the encounter was related to the primary reason for home health care. Under situations in which I am an acute/post acute facilityphysician who will not be following the patient's plan of care, I authorized services on this plan of care and I transfer the patient for plan of care certification to the primary care physician named below who will follow the patient and update the plan of care. Primary care physician Moreno العلي MD Patient was seen, examined and discharge plan discussed with my attending, Dr. Richmond. Maureen Meza MD Resident PGY-2 I saw and evaluated the patient today. I have reviewed the trainee note and agree. I spent a total of 45 minutes coordinating, documenting, and providing care for this patient excluding time spent inthe performance of separately billed services. Andi Richmond MD documented in this encounter Discharge Instructions * Discharge Instr - AVS* Andi Richmond MD - 03/07/2023 9:32 AM EDT Discharge Date: 03/09/2023 The information below provides you with the instructions and the list of medications you need to betaking following discharge from the hospital. If you have any questions, please ask before leaving. If you have questions after leaving, you can reach us at the numbers below. YOUR HOSPITAL PROVIDERS: Discharging Provider: Andi Richmond MD Provider Department: Hospital Medicine To reach this Provider Thursday through Thursday (8:00 AM to 4:30 PM) for any questions or test results: Call [phone] For after-hours concerns: Call [phone] and have your provider paged, or the provider station mechanic helper for the Department of Hospital Medicine paged. Please note, the discharging provider will not be able to provide you with any medications refills.Please discuss these with your primary care provider. Worsening Symptoms: If you have new symptoms, or your symptoms get worse, please contact your Discharge Provider or Primary Care Provider (PCP). If these providers are not available, you can go to your local [facility] clinic or Urgent Care Clinic during their business hours. In an EMERGENCY situation: Call 911 or go to the nearest emergency room. A BRIEF SUMMARY OF YOUR HOSPITAL STAY: You came to the hospital with: complaint of nausea, vomiting and abdominal pain Your main diagnosis at discharge was: Sepsis due to complicated UTI and bacteremia Operations & Procedures performed: none Complications: none significant Inpatient test results that are pending at discharge: none Advance Directive Documented: Advance Directive Does the Patient have an Advance Directive? No YOUR FOLLOW UP APPOINTMENTS: Primary Care Provider Information: PCP: Moreno العلي MD [address] [place] [address] [place] [address] (office) [phone] (fax) An appointment was requested with your PCP (Moreno العلي MD) within 7 days. (Please take this form to this visit with your primary care physician.) You need the following studies in the future: none INSTRUCTIONS: Diet: Previous diet Activity: As tolerated Additional Instructions: - Call your primary care physician or seek medical attention if abdominal pain, shortness of breath, fever or chills. - Complete Antibiotics (Ciprofloxacin) for a total of 14 days as prescribed - Oxycodone for pain documented in this encounter Progress Notes * Rudi Johnson RPh - 03/09/2023 11:41 AM EDT PHARMACY DISCHARGE MEDICATION RECONCILIATION REVIEW [address] [id number] Name: Mayra Salvador Location: [facility] [id number] Date: 03/09/2023 Time: 11:41 AM This discharge medication reconciliation was reviewed by a pharmacist and no corrections or interventions were required. * Andi Richmond MD - 03/08/2023 10:01 AM EDT Images from the original note were not included. [facility] [id number]/W 72-year-old female with a past medical history of DM 2, COPD, obesity, chronic 3L oxygen supplementation, HTN, admitted on 03/03 to the ICU for sepsis due to complicated UTI with infected kidney stoneand bacteremia. She was started on levophed for hypotension and Vanc & Zosyn for broad spectrumcoverage. Urine and blood cultures growing E coli. 03/04 - stent was placed by urology; pyelonephritis found 03/05 - MRSA neg; transitioned to Rocephin. Off pressors. Transferred to floor INTERVAL HISTORY: Pending Rehab placement. Today with new right arm erythema per nursing. Objective Physical Exam Most Recent Vital Signs: BP: 157 mmHg/89 mmHg (03/08/23734) Pulse: 94 (03/08/23734) Temp: 36.78 C (03/08/23734) Resp: 18 (03/08/23734) SpO2: 97 % (03/08/23734) Physical Exam Vitals reviewed. Constitutional: Appearance: She is not ill-appearing or toxic-appearing. Cardiovascular: Rate and Rhythm: Normal rate. Heart sounds: No friction rub. No gallop. Pulmonary: Effort: Pulmonary effort is normal. No respiratory distress. Breath sounds: No stridor. No wheezing or rales. Abdominal: General: There is no distension. Palpations: Abdomen is soft. Tenderness: There is no abdominal tenderness. There is no guarding. Musculoskeletal: Right lower leg: No edema. Left lower leg: No edema. Skin: Comments: See image Neurological: Mental Status: She is alert. Motor: Weakness present. Peripheral Line Right 22 Gauge (Active) Number of days: 1 STUDIES: Labs and other studies reviewed with pertinent findings noted below: Lab results within last 7 days (see chart for full results) Units 03/08/23 0527 03/07/23 0600 03/06/23 0550 HGB g/dL 9.3* 9.5* 9.5* HCT % 30.7* 29.6* 30.1* WBC K/uL 8.40 10.31 10.37 PLT K/uL 117* 103* 100* Lab results within last 7 days (see chart for full results) Units 03/08/23 0527 03/07/23 0600 03/06/23 0550 Sodium mmol/L 138 137 136 Potassium mmol/L 3.6 3.7 3.9 Chloride mmol/L 104 104 103 CO2 mmol/L 26 25 24 BUN mg/dL 29* 35* 41* Creatinine mg/dL 1.3* 1.5* 1.8* Lab results within last 7 days (see chart for full results) Units 03/08/23 0527 03/07/23 0600 03/06/23 0550 Magnesium mg/dL 1.8 2.2 2.4 ] Lab results within last 7 days (see chart for full results) Units 03/02/23 1754 Protein g/dL 6.6 Bilirubin, Total mg/dL 0.7 Alkaline Phosphatase U/L 86 AST U/L 30 ALT U/L 18 Lab results within last 7 days (see chart for full results) Units 03/03/23 0653 03/02/23 1754 Lactate, Whole Blood mmol/L -- 2.4* Lactate mmol/L 1.7 -- Recent Cultures (2 Weeks) 03/04/2023 03/03/2023 03/02/2023 03/02/2023 5:15 PM 10:30 AM 7:23 PM 7:20 PM STAIN DESCRIPTION -- -- Anaerobic bottle Gram negative bacilli Anaerobic bottle Gram negative bacilli Aerobic bottle Gram negative bacilli Aerobic bottle Gram negative bacilli BLOOD CULTURE GROWTH No growth to date -- Both bottles of set Lactose fermenting gram negative bacilli Both bottles of set Escherichia coli QUANT URINE CULTURE GROWTH -- >100,000 colonies/mL Escherichia coli -- -- Assessment and Plan IMPRESSION : Principal Problem: Complicated UTI (urinary tract infection) Active Problems: Type 2 diabetes mellitus with hemoglobin A1c goal of less than 7.0% ([facility]) Gastroesophageal reflux disease without esophagitis RLS (restless legs syndrome) HTN, goal below 130/80 COPD, group C, by GOLD 2017 classification ([facility]) Morbid obesity due to excess calories ([facility]) Depression with anxiety Hydronephrosis, left Resolved Problems: Septic shock ([facility]) DIFFERENTIAL AND PLAN: Plan for Rehab given level of weakness and lack of support at home Continue current regimen Will get D dimer reflex to right arm imaging type Will add Lactate, Procal, CRP Monitor BP, if persistently elevated will add BP med to her regimen PHARMACOLOGIC VTE PROPHYLAXIS: hEParin CODE STATUS: Full Code EXPECTED DISCHARGE DATE: 03/09/2023 I spent a total of 35 minutes coordinating, documenting, and providing care for this patient excluding time spent in the performance of separately billed services. * Andi Richmond MD - 03/07/2023 3:59 PM EDT Images from the original note were not included. [facility] [id number]/W 72-year-old female with a past medical history of DM 2, COPD, obesity, chronic 3L oxygen supplementation, HTN, admitted on 03/03 to the ICU for sepsis due to complicated UTI with infected kidney stoneand bacteremia. She was started on levophed for hypotension and Vanc & Zosyn for broad spectrumcoverage. Urine and blood cultures growing E coli. 03/04 - stent was placed by urology; pyelonephritis found 03/05 - MRSA neg; transitioned to Rocephin. Off pressors. Transferred to floor INTERVAL HISTORY: Patient seen and examined. Wants to go home. States that she changed her mind anddoes not want to go to rehab. Wants people to go to her house because her insurance covers it. Explained risk and she still refused. Later in the day, she had no ride to pick her up. Wanted transportand HH yet to be arranged. After second discussion agreed to rehab. Objective Physical Exam Most Recent Vital Signs: BP: 143 mmHg/88 mmHg (03/07/23 1515) Pulse: 84 (03/07/23 1515) Temp: 37.11 C (03/07/23 1515) Resp: 16 (03/07/23 151) SpO2: 97 % (03/07/231514) Physical Exam Vitals reviewed. Constitutional: Appearance: She is not ill-appearing or toxic-appearing. Cardiovascular: Rate and Rhythm: Normal rate. Heart sounds: No friction rub. No gallop. Pulmonary: Effort: Pulmonary effort is normal. No respiratory distress. Breath sounds: No stridor. No wheezing or rales. Abdominal: General: There is no distension. Palpations: Abdomen is soft. Tenderness: There is no abdominal tenderness. There is no guarding. Musculoskeletal: Right lower leg: No edema. Left lower leg: No edema. Neurological: Mental Status: She is alert. Peripheral Line Right 22 Gauge (Active) Number of days: 0 STUDIES: Labs and other studies reviewed with pertinent findings noted below: Lab results within last 7 days (see chart for full results) Units 03/07/23 0600 03/06/23 0550 03/05/23 0527 HGB g/dL 9.5* 9.5* 8.8* HCT % 29.6* 30.1* 27.8* WBC K/uL 10.31 10.37 11.42* PLT K/uL 103* 100* 87* Lab results within last 7 days (see chart for full results) Units 03/07/23 0600 03/06/23 0550 03/05/23 0527 Sodium mmol/L 137 136 137 Potassium mmol/L 3.7 3.9 4.1 Chloride mmol/L 104 103 104 CO2 mmol/L 25 24 24 BUN mg/dL 35* 41* 43* Creatinine mg/dL 1.5* 1.8* 2.0* Lab results within last 7 days (see chart for full results) Units 03/07/23 0600 03/06/23 0550 03/05/23 0527 Magnesium mg/dL 2.2 2.4 2.4 ] Lab results within last 7 days (see chart for full results) Units 03/02/23 1754 Protein g/dL 6.6 Bilirubin, Total mg/dL 0.7 Alkaline Phosphatase U/L 86 AST U/L 30 ALT U/L 18 Lab results within last 7 days (see chart for full results) Units 03/03/23 0653 03/02/23 1754 Lactate, Whole Blood mmol/L -- 2.4* Lactate mmol/L 1.7 -- No results in the last 7 days - inpatent use only Recent Cultures (2 Weeks) 03/04/2023 03/03/2023 03/02/2023 03/02/2023 5:15 PM 10:30 AM 7:23 PM 7:20 PM STAIN DESCRIPTION -- -- Anaerobic bottle Gram negative bacilli Anaerobic bottle Gram negative bacilli Aerobic bottle Gram negative bacilli Aerobic bottle Gram negative bacilli BLOOD CULTURE GROWTH No growth to date -- Both bottles of set Lactose fermenting gram negative bacilli Both bottles of set Escherichia coli QUANT URINE CULTURE GROWTH -- >100,000 colonies/mL Escherichia coli -- -- Assessment and Plan IMPRESSION : Principal Problem: Septic shock ([facility]) Active Problems: Type 2 diabetes mellitus with hemoglobin A1c goal of less than 7.0% ([facility]) Gastroesophageal reflux disease without esophagitis RLS (restless legs syndrome) HTN, goal below 130/80 COPD, group C, by GOLD 2017 classification ([facility]) Morbid obesity due to excess calories ([facility]) Depression with anxiety Complicated UTI (urinary tract infection) Hydronephrosis, left Resolved Problems: * No resolved hospital problems. * DIFFERENTIAL AND PLAN: Plan for Rehab given level of weakness and lack of support at home Continue current regimen, plan for d/c when Rehab ready PHARMACOLOGIC VTE PROPHYLAXIS: hEParin CODE STATUS: Full Code EXPECTED DISCHARGE DATE: 03/09/2023 I spent a total of 50 minutes coordinating, documenting, and providing care for this patient excluding time spent in the performance of separately billed services. * Gabby Duggan RN - 03/07/2023 7:15 AM EDT Nursing Critical Care Response Note [facility] [id number] Name: Mayra Salvador Date: 03/07/2023 Time: 3:10 PM Event Location: [facility], Unit Area: 4B In the role of the Critical Response Nurse I was involved in the care of this patient. Method of notification to the critical care response nurse: Follow up previous notification Reason for notification or follow up: Chart Review Observations/Interventions/Assessment: Chart reviewed. Discussed pt with overnight CRN. Pt to be discharged on Thursday. No events overnight. Outcome/Plan We will discontinue follow ups at this time. Please contact us if any concerns arise. * Gabby Duggan RN - 03/06/2023 10:15 AM EDT LATE ENTRY Nursing Critical Care Response Note [address] [address] Name: Mayra Salvador Date: 03/07/2023 Time: 3:07 PM Event Location: [facility], Unit Area: In the role of the Critical Response Nurse I was involved in the care of this patient. Method of notification to the critical care response nurse: Follow up previous notification Reason for notification or follow up: Chart Review Observations/Interventions/Assessment: Chart reviewed. Discussed pt with primary nurse. Pt had episode of Afib RVR overnight. Outcome/Plan Will continue to follow this pt. Please contact us if any concerns arise. * Maureen Meza MD - 03/06/2023 8:10 AM EDT Images from the original note were not included. [facility] [id number]/W 72-year-old female with a past medical history of DM 2, COPD, obesity, chronic 3L oxygen supplementation, HTN, admitted on 03/03 to the ICU for sepsis due to complicated UTI with infected kidney stoneand bacteremia. She was started on levophed for hypotension and Vanc & Zosyn for broad spectrumcoverage. Urine and blood cultures growing E coli. 03/04 - stent was placed by urology; pyelonephritis found 03/05 - MRSA neg; transitioned to Rocephin. Off pressors. Transferred to floors INTERVAL HISTORY: Patient was evaluated today at bedside appearing stable. She reports no new complaints at this time. She is currently on 3 L of oxygen same as home supplementation. Objective Physical Exam Most Recent Vital Signs: BP: 109 mmHg/61 mmHg (03/06/23 1044) Pulse: 96 (03/06/23 1044) Temp: 36.72 C (03/06/23 1044) Resp: 16 (03/06/23 1044) SpO2: 96 % (03/06/23 1044) Physical Exam Constitutional: General: She is not in acute distress. Appearance: She is obese. HENT: Head: Normocephalic. Mouth/Throat: Mouth: Mucous membranes are moist. Eyes: Pupils: Pupils are equal, round, and reactive to light. Cardiovascular: Rate and Rhythm: Normal rate and regular rhythm. Heart sounds: No murmur heard. Pulmonary: Breath sounds: Decreased breath sounds present. Comments: On 3L of oxygen Abdominal: General: Bowel sounds are normal. Palpations: Abdomen is soft. Musculoskeletal: Right lower leg: No edema. Left lower leg: No edema. Skin: General: Skin is warm. Capillary Refill: Capillary refill takes less than 2 seconds. Neurological: General: No focal deficit present. Mental Status: She is alert. Psychiatric: Mood and Affect: Mood normal. Peripheral Line Lower;Posterior;Right Arm 20 Gauge (Active) Number of days: 4 STUDIES: Labs and other studies reviewed with pertinent findings noted below: Lab results within last 7 days (see chart for full results) Units 03/06/23 0550 03/05/23 0527 03/04/23 0549 03/03/23 1613 03/03/23 0603 03/02/23 1754 WBC K/uL 10.37 11.42* 14.26* 19.91* 29.75* 28.63* RBC M/uL 3.46 3.18 3.34 3.63 3.81 4.29 HGB g/dL 9.5* 8.8* 9.2* 10.1* 10.5* 12.0 HCT % 30.1* 27.8* 29.3* 32.2* 33.2* 37.0 PLT K/uL 100* 87* 105* 122* 139* 157 Lab results within last 7 days (see chart for full results) Units 03/06/23 0550 03/05/23 0527 03/04/23 0549 03/03/23 1609 03/03/23 0603 03/02/23 1754 Sodium mmol/L 136 137 135 135 138 134* Potassium mmol/L 3.9 4.1 4.2 4.7 4.3 4.6 Chloride mmol/L 103 104 104 104 106 100 CO2 mmol/L 24 24 20* 20* 20* 25 BUN mg/dL 41* 43* 41* 41* 38* 32* Creatinine mg/dL 1.8* 2.0* 2.1* 2.3* 2.5* 2.4* Glucose mg/dL 99 101 98 130* 103 122* Calcium mg/dL 8.2* 7.7* 7.6* 7.9* 7.5* 8.7 Magnesium mg/dL 2.4 2.4 2.0 1.7 -- -- Lab results within last 7 days (see chart for full results) Units 03/02/23 1754 Protein g/dL 6.6 Bilirubin, Total mg/dL 0.7 Alkaline Phosphatase U/L 86 AST U/L 30 ALT U/L 18 Component Ref Range & Units Escherichia coli DNA by PCR Negative PositivePanic CTX-M (Cephalosporin resistance gene) Negative Negative IMP (Carbapenem resistance gene) Negative Negative KPC (carbapenem-resistance gene) Negative Negative VIM (Carbapenem resistance gene) Negative Negative OXA-48 (Carbapenem resistance gene) Negative Negative NDM (Carbapenem resistance gene) Negative Negative mcr-1 (Colistin resistance gene) Negative Negative Comment Negative for all other bacterial targets and resistance genes. Culture Growth >100,000 colonies/mL Escherichia coliAbnormal Recent blood cultures 03/04 - NGTD XR KNEE 1-2 VIEWS Result Date: 03/05/2023 IMPRESSION: 1. Severe degenerative changes. No definite cortical disruption appreciated. 2. Soft tissue swelling and joint effusion 3. If further imaging is required based on clinical criteria consider CT. THIS DOCUMENT HAS BEEN ELECTRONICALLY SIGNED BY HUSSAIN MABRY MD XR CHEST 1 VIEW Result Date: 03/04/2023 IMPRESSION: Small left pleural effusion with left basilar atelectasis versus pneumonia. THIS DOCUMENT HAS BEEN ELECTRONICALLY SIGNED BY JOSEPH WILKINS MD Assessment and Plan IMPRESSION : Principal Problem: Septic shock (HCC) Active Problems: Type 2 diabetes mellitus with hemoglobin A1c goal of less than 7.0% ([facility]) Gastroesophageal reflux disease without esophagitis RLS (restless legs syndrome) HTN, goal below 130/80 COPD, group C, by GOLD 2017 classification ([facility]) Morbid obesity due to excess calories ([facility]) Depression with anxiety Complicated UTI (urinary tract infection) Hydronephrosis, left Resolved Problems: * No resolved hospital problems. * DIFFERENTIAL AND PLAN: 72-year-old female with a past medical history of DM 2, COPD, obesity, chronic 3L oxygen supplementation, HTN, admitted on 03/03 to the ICU for sepsis due to complicated UTI with infected kidney stoneand bacteremia. She was transferred out of the ICU on 03/05 after becoming stable and maintaining decent MAP off pressors. Sepsis due to complicated UTI with bacteremia. S/P stent placement - Continue IV Rocephin (day 2) - Follow repeat blood cultures - PT/OT/CM evaluation - Continue oxygen supplementation - Infectious disease consult for antibiotic therapy upon DC Dispo: Plan for DC to Rehab once available PHARMACOLOGIC VTE PROPHYLAXIS: hEParin CODE STATUS: Full Code EXPECTED DISCHARGE DATE: 03/11/2023 Patient was seen, was examined and was discussed with my attending, Dr. Richmond. Maureen Meza MD PGY-2 FM Resident Associated attestation - Andi Richmond MD - 03/06/2023 3:01 PM EDT I saw and evaluated the patient today. I have reviewed the trainee note and agree. I spent a total of 35 minutes coordinating, documenting, and providing care for this patient excluding time spent inthe performance of separately billed services. * Nigel Washington MD - 03/05/2023 3:07 PM EDT Images from the original note were not included. [facility] [id number] INTERVAL HISTORY: 72-year-old with past medical history of dm2, copd c, obesity, on chronic supplemental o2, htn, restless legs, and prior kidney stones admitted to ICU for sepsis, complicated UTI due to an infected kidney stone as well as bacteremia. Patient received sepsis bolus fluids as well asIV pressors. Patient is status post stent by urology Per CCM: brought to the hospital for evaluation by EMS after falling out of her wheelchair. Noted that shehas falling off a wheelchair twice in the past 2 days. Complains of lower back pain and buttock pain which is chronic. Noted that she has had pain or have live and has chronically been on Percocet and baclofen. Has been having nausea with associated vomiting also for about 2 days. Has felt quite weak and recently has been having left-sided abdominal pain. Has a history of kidney stones.At baseline patient usually wears 3 L of oxygen at night and as needed during the day. She has sleep apnea but was unable to tolerate the mask. She has history of urinary incontinence but denies any dysuria or burning sensation. Had associated fever with chills. At the emergency room on arrival was noted to be shivering. He had imaging studies that showed evidence of left hydronephrosis with obstructing kidney stone. She was hypotensive and was given sepsis fluid and subsequently started on Levophed and transferredto the intensive care unit further evaluation and management. Urology was contacted yesterday and plans to patient today for possible stent placement. Patient was continued on antibiotics. Remains weak and sleepy but arousable. Able to answer simple questions and obey simple commands. Has not been very ambulatory at baseline and mostly uses a wheelchair. Can ambulate minimally with a walker. Lives at home with son 03/04:Patient was taken to the OR yesterday by Urology and had stone removed and left stent placed. Findings during the procedure was suggestive of pyelonephritis. Patient continues to be on antibiotics based on culture results. Still slightly sleepy but much improved when compared to prior. Able to maintain decent saturation when awake but tends to desaturate while sleeping and requires oxygen supplementation. Patient given Miralax and senokot. 03/05: Patient remains slightly sleepy but arousable. Much more awake and continues to require oxygen supplementation to maintain decent saturation. Transition to Rocephin. Without function is slowly improving. White count is down to normal. Patient is no longer requiring pressors to maintain decentblood pressure, but continues to be on IV fluid. Complains of right knee pain with movement which she relates to the fall. Transferred to floor on 03/05/2023 Knee x-ray showed severe degenerative changes , effusion but no fracture. Some fatigue, no other complaint ROS: Review of Systems All other systems reviewed and are negative. Objective Physical Exam Most Recent Vital Signs: BP: 97 mmHg/74 mmHg (03/05/23 1000) Pulse: 79 (03/05/23 1000) Temp: 36.22 C (03/05/23 1145) Resp: 14 (03/05/23 1000) SpO2: 97 % (03/05/23 1000) Constitutional: no acute distress HEAD: unchanged CV: First and second heart sounds Chest: normal respiratory effort at rest with nasal canula in place. Air entry is mildly decreased mostly at the bases. Abdomen: soft, bowel sounds normal Extremities: no edema Skin: warm, dry: Neuro: alert, oriented. Psych: normal mood and affect Peripheral Line Lower;Posterior;Right Arm 20 Gauge (Active) Number of days: 3 STUDIES: Labs and other studies reviewed with pertinent findings noted below: CT L SPINE WO CONTRAST Result Date: 03/02/2023 IMPRESSION 1. No evidence of traumatic injury or other convincing acute abnormality. Degenerative changes in the lumbar spine as described above, most advanced at L4-L5 and L5-S1 junctions, where there is severe spinal canal stenosis, narrowing of the lateral recesses, and severe bilateral neural fo raminal narrowing with compression of the exiting nerve roots. XR HIP UNILAT 2-3 VIEWS INCLUDING AP PELVIS Result Date: 03/02/2023 IMPRESSION: No acute findings. THIS DOCUMENT HAS BEEN ELECTRONICALLY SIGNED BY FERDINAND GEORGE MD XR KNEE 1-2 VIEWS Result Date: 03/05/2023 IMPRESSION: 1. Severe degenerative changes. No definite cortical disruption appreciated. 2. Soft tissue swelling and joint effusion 3. If further imaging is required based on clinical criteria consider CT. THIS DOCUMENT HAS BEEN ELECTRONICALLY SIGNED BY HUSSAIN MABRY MD CT ABD/PELVIS WO IV/ORAL CONTRAST Result Date: 03/02/2023 IMPRESSION: 1. Edematous appearance of the left kidney with mild prominence of the left renal collecting system secondary to 2 obstructing calculi in the left renal pelvis measuring up to 1.1 and 0.7cm respectively. 2. Colonic diverticulosis without diverticulitis. 3. Atherosclerotic vascular disease. THIS DOCUMENT HAS BEEN ELECTRONICALLY SIGNED BY FERDINAND GEORGE MD XR CHEST 1 VIEW Result Date: 03/04/2023 IMPRESSION: Small left pleural effusion with left basilar atelectasis versus pneumonia. THIS DOCUMENT HAS BEEN ELECTRONICALLY SIGNED BY JOSEPH WILKINS MD XR CHEST 2 VIEWS Result Date: 03/02/2023 IMPRESSION: No acute findings. THIS DOCUMENT HAS BEEN ELECTRONICALLY SIGNED BY FERDINAND GEORGE MD Lab results within last 7 days (see chart for full results) Units 03/05/23 0527 03/04/23 0549 03/03/23 1613 HGB g/dL 8.8* 9.2* 10.1* HCT % 27.8* 29.3* 32.2* WBC K/uL 11.42* 14.26* 19.91* PLT K/uL 87* 105* 122* Lab results within last 7 days (see chart for full results) Units 03/05/23 0527 03/04/23 0549 03/03/23 1609 Sodium mmol/L 137 135 135 Potassium mmol/L 4.1 4.2 4.7 Chloride mmol/L 104 104 104 CO2 mmol/L 24 20* 20* BUN mg/dL 43* 41* 41* Creatinine mg/dL 2.0* 2.1* 2.3* Recent Cultures (2 Weeks) 03/04/2023 03/03/2023 03/02/2023 03/02/2023 5:15 PM 10:30 AM 7:23 PM 7:20 PM STAIN DESCRIPTION -- -- Anaerobic bottle Gram negative bacilli Anaerobic bottle Gram negative bacilli Aerobic bottle Gram negative bacilli Aerobic bottle Gram negative bacilli BLOOD CULTURE GROWTH No growth to date -- Both bottles of set Lactose fermenting gram negative bacilli Both bottles of set Escherichia coli QUANT URINE CULTURE GROWTH -- >100,000 colonies/mL Escherichia coli -- -- Assessment and Plan IMPRESSION : Principal Problem: Septic shock ([facility]) Active Problems: Type 2 diabetes mellitus with hemoglobin A1c goal of less than 7.0% ([facility]) Gastroesophageal reflux disease without esophagitis RLS (restless legs syndrome) HTN, goal below 130/80 COPD, group C, by GOLD 2017 classification ([facility]) Morbid obesity due to excess calories ([facility]) Depression with anxiety Complicated UTI (urinary tract infection) Hydronephrosis, left Resolved Problems: * No resolved hospital problems. * DIFFERENTIAL AND PLAN: 72-year-old with past medical history of dm2, copd c, obesity, on chronic supplemental o2, htn, restless legs, and prior kidney stones admitted to ICU for sepsis, complicated UTI due to an infected kidney stone as well as bacteremia. Patient received sepsis bolus fluids as well as IV pressors. Patient is status post stent by urology Cont iv abx Await final sensistivities for blood and urine PT/OT CM. Pt uses wheelchair and walker at home. Cont rocephin Conservative care for knee pain. Cont current meds cefTRIAXone in dextrose (Rocephin) IVPB 2 g Baclofen (Lioresal) tab 10 mg hEParin inj 7,500 Units melatonin tab 6 mg oxyCODONE (Oxy IR) tab 5 mg Polyethylene Glycol 3350 (Miralax) oral powder 17 g senna-docusate (Senokot-S) 1 Tablet Acetaminophen (Tylenol) tab 650 mg albuterol-ipratropium (Duoneb) inhalation solution 3 mL dextrose 50 % inj 25 mL dextrose 50 % inj 50 mL fentaNYL (PF) inj 50 mcg glucagon (Glucagen) inj 1 mg Glucose (Glutose 15) 40 % gel 15 g of glucose Glucose (Glutose 15) 40 % gel 30 g of glucose glucose chew tab 16 g insulin aspart (NovoLOG) inj rOPINIRole (Requip) tab 3 mg amitriptyline (Elavil) tab 10 mg aspirin enteric coated tab 81 mg atorvaSTATin (Lipitor) tab 40 mg buPROPion (Wellbutrin) tab 75 mg chlorHEXIDINE (Periogard) 0.12 % oral rinse 15 mL fluticasone furoate-vilanterol (BREO ellipta) 100-25 MCG/ACT inhaler 1 Puff LORAzepam (Ativan) tab 0.5 mg meclizine (Antivert) tab 12.5 mg montelukast (Singulair) tab 10 mg pantoprazole (Protonix) tab 40 mg sodium chloride 0.9 % flush peripheral karen 3 mL umeclidinium [place] (INCRUSE ellipta) 62.5 MCG/ACT inhaler 1 Puff PHARMACOLOGIC VTE PROPHYLAXIS: hEParin CODE STATUS: Full Code EXPECTED DISCHARGE DATE: 03/11/2023 * Carl Adrian MD - 03/05/2023 12:52 PM EDT CCM - PROGRESS NOTE [address] [id number] Name: Mayra Salvador Location: [id number] Date: 03/05/2023 Time: 12:52 PM Care during the described time interval was provided by me. I have reviewed this patient's available data, including medical history, events of note, physical examination and test results. PATIENT DESCRIPTION: Patient is a 72 year old female, brought to the hospital for evaluation by Zoraner falling out of her wheelchair. Noted that she has falling off a wheelchair twice in the past 2 days. Complains of lower back pain and buttock pain which is chronic. Noted that she has had pain or have live and has chronically been on Percocet and baclofen. Has been having nausea with associated vomiting also for about 2 days. Has felt quite weak and recently has been having left-sided abdominal pain. Has a history of kidney stones. At baseline patient usually wears 3 L of oxygen at night and as needed during the day. She has sleep apnea but was unable to tolerate the mask. She has history of urinary incontinence but denies any dysuria or burning sensation. Had associated fever with chills. At the emergency room on arrival was noted to be shivering. He had imaging studies that showedevidence of left hydronephrosis with obstructing kidney stone. She was hypotensive and was given sepsis fluid and subsequently started on Levophed and transferredto the intensive care unit further evaluation and management. Urology was contacted yesterday and plans to patient today for possible stent placement. Patient was continued on antibiotics. Remains weak and sleepy but arousable. Able to answer simple questions and obey simple commands. Has not been very ambulatory at baseline and mostly uses a wheelchair. Can ambulate minimally with a walker. Lives at home with son 03/04: Patient was taken to the OR yesterday by Urology and had stone removed and left stent placed.Findings during the procedure was suggestive of pyelonephritis. Patient continues to be on antibiotics based on culture results. Still slightly sleepy but much improved when compared to prior. Able to maintain decent saturation when awake but tends to desaturate while sleeping and requires oxygen supplementation. Patient given Miralax and senokot. 03/05: Patient remains slightly sleepy but arousable. Much more awake and continues to require oxygen supplementation to maintain decent saturation. Transition to Rocephin. Without function is slowly improving. White count is down to normal. Patient is no longer requiring pressors to maintain decentblood pressure, but continues to be on IV fluid. Complains of right knee pain with movement which she relates to the fall. MEDICATIONS: Current Facility-Administered Medications Medication Dose Route Frequency Provider cefTRIAXone in dextrose (Rocephin) IVPB 2 g 2 g IV Piggyback Q24H Carl Adrian MD Baclofen (Lioresal) tab 10 mg 10 mg Oral HS Carl Adrian MD hEParin inj 7,500 Units 7,500 Units Subcutaneous Q8H Carl Adrian MD isolyte-S pH 7.4 infusion Intravenous Continuous Carl Adrian MD melatonin tab 6 mg 6 mg Oral HS PRN Scarlett Bacon PA-C oxyCODONE (Oxy IR) tab 5 mg 5 mg Oral Q4H PRN Scarlett Bacon PA-C Polyethylene Glycol 3350 (Miralax) oral powder 17 g 1 Packet Oral Daily(AM) Carl Adrian MD senna-docusate (Senokot-S) 1 Tablet 1 Tablet Oral Daily(AM) Carl Adrian MD Acetaminophen (Tylenol) tab 650 mg 650 mg Oral Q4H PRN Scarlett Bacon PA-C albuterol-ipratropium (Duoneb) inhalation solution 3 mL 3 mL Nebulizer Q6H PRN Carl Adrian MD dextrose 50 % inj 25 mL 25 mL IV Push PRN Juan Carlos Ackerman PA-C dextrose 50 % inj 50 mL 50 mL IV Push PRN Juan Carlos Ackerman PA-C fentaNYL (PF) inj 50 mcg 50 mcg IV Push Q6H PRN Carl Adrian MD glucagon (Glucagen) inj 1 mg 1 mg Intramuscular PRN Juan Carlos Ackerman PA-C Glucose (Glutose 15) 40 % gel 15 g of glucose 15 g of glucose Oral PRN Juan Carlos Ackerman PA-C Glucose (Glutose 15) 40 % gel 30 g of glucose 30 g of glucose Oral PRN Juan Carlos Ackerman PA-C glucose chew tab 16 g 16 g Oral PRN Juan Carlos Ackerman PA-C insulin aspart (NovoLOG) inj Subcutaneous With Meals and HS Carl Adrian MD rOPINIRole (Requip) tab 3 mg 3 mg Oral QHS Robert Neal [facility] amitriptyline (Elavil) tab 10 mg 10 mg Oral QHS Juan Carlos Ackerman PA-C aspirin enteric coated tab 81 mg 81 mg Oral Daily(AM) Juan Carlos Ackerman PA-C atorvaSTATin (Lipitor) tab 40 mg 40 mg Oral Daily(AM) Juan Carlos Ackerman PA-C buPROPion (Wellbutrin) tab 75 mg 75 mg Oral BID(AM/PM) Juan Carlos Ackerman PA-C chlorHEXIDINE (Periogard) 0.12 % oral rinse 15 mL 15 mL Oral mucosal membrane BID (08,1999) Juan Carlos Ackerman PA-C fluticasone furoate-vilanterol (BREO ellipta) 100-25 MCG/ACT inhaler 1 Puff 1 Puff Inhalation Daily(AM) Juan Carlos Ackerman PA-C LORAzepam (Ativan) tab 0.5 mg 0.5 mg Oral Q8H PRN Juan Carlos Ackerman PA-C meclizine (Antivert) tab 12.5 mg 12.5 mg Oral TID PRN Juan Carlos Ackerman PA-C montelukast (Singulair) tab 10 mg 10 mg Oral Daily(AM) Juan Carlos Ackerman PA-C pantoprazole (Protonix) tab 40 mg 40 mg Oral BID(AM/PM) Juan Carlos Ackerman PA-C sodium chloride 0.9 % flush peripheral karen 3 mL 3 mL IV Push Q8H Juan Carlos Ackerman PA-C umeclidinium [place] (INCRUSE ellipta) 62.5 MCG/ACT inhaler 1 Puff 1 Puff Inhalation Daily(AM) Juan Carlos Ackerman PA-C CONSTITUTIONAL DATA: BP: 97 mmHg/74 mmHg (03/05/23 1000) Pulse: 79 (03/05/23 1000) Temp: 36.22 C (03/05/23 1145) Resp: 14 (03/05/23 1000) SpO2: 97 % (03/05/23 1000) Intake/Output Summary (Last 24 hours) at 03/05/2023 1252 Last data filed at 03/05/2023 1200 Gross per 24 hour Intake 3195.6 ml Output 1035 ml Net 2160.6 ml PHYSICAL EXAM: Constitutional: no acute distress HEAD: unchanged ENT: oral mucosa - moist Eyes: sclera and conjunctiva normal Neck: supple CV: First and second heart sounds Chest: normal respiratory effort at rest with nasal canula in place. Air entry is mildly decreased mostly at the bases. Abdomen: soft, bowel sounds normal Extremities: no edema Skin: warm, dry: Neuro: More awake and able to answer simple questions and obey simple commands. Moves extremities. Oriented. Psych: normal mood and affect LABORATORY VALUES: reviewed 03/04/23 05:49 03/05/23 05:27 Sodium 135 137 Potassium 4.2 4.1 Chloride 104 104 CO2 20 (L) 24 BUN 41 (H) 43 (H) Creatinine 2.1 (H) 2.0 (H) Estimated Glomerular Filtration Rate 24 (L) 26 (L) Anion Gap 11 9 Glucose 98 101 Calcium 7.6 (L) 7.7 (L) Calcium, Ionized 1.05 (L) 1.10 (L) Magnesium 2.0 2.4 Phosphorus 3.1 3.5 03/04/23 05:49 03/05/23 05:27 WBC 14.26 (H) 11.42 (H) HGB 9.2 (L) 8.8 (L) HCT 29.3 (L) 27.8 (L) MCV 87.7 87.4 PLT 105 (L) 87 (L) RADIOGRAPHIC STUDIES: reviewed chest x-ray done yesterday was reviewed by me on PACs. My interpretation-left base pleural effusion with associated atelectasis/consolidation. Principal Problem: Septic shock secondary to E coli Obstructive nephropathy - left ureteric stones s/p left stent placement Metabolic encephalopathy likely due to sepsis - improved Left pyelonephritis New left pleural effusion with associated consolidation/atelectasis Acute renal failure Type 2 diabetes mellitus Chronic pain with chronic opiate use Spinal stenosis - with lumbar degenerative disease Ambulatory dysfunction Right knee pain s/p fall Gastroesophageal reflux disease without esophagitis Recent recurrent falls RLS (restless legs syndrome) History of hypertension Chronic respiratory failure Obstructive sleep apnea COPD, group C, by GOLD 2017 classification ([facility]) Morbid obesity due to excess calories Depression with anxiety SYSTEM BASED PLAN: Central nervous system Poor mental status likely due to a combination of sepsis and medication - improved Continue pain management Continue home medications Avoid oversedation Pain management Neuro watch Respiratory system Continue oxygen supplementation wean down FiO2 as tolerated Patient actually likely requires oxygen supplementation while sleepy Continue bronchodilators Cardiovascular system Discontinue IV fluid Start lasix tomorrow Will gently restart patient's home medication as she improves Gastrointestinal system Reflux precautions Nutrition PO intake Diabetic diet Endo Blood glucose as per protocol Insulin as per protocol Normal TSH level Hematology DVT prophylaxis Musculoskeletal PT/OT Right knee x-ray Infectious disease Follow final culture results Continue Rocephin 2 gm F/u final culture and sensitivity Renal Discontinue IV fluid Consider starting Lasix from tomorrow Monitor and supplement electrolytes Skin Stable General Care management evaluation GLOBAL ISSUES: Analgesia: protocol with control Sedation: N/A Delirium/Confusion Assessment Method for ICU (CAM-ICU): CAM-ICU negative HOB Elevation: greater than 30 degress Nutrition: PO DVT Prophylaxis: chemoprophylaxis with pneumatic compression devices Stress Ulcer Prophylaxis: PPI therapy for other indication Glycemic Control: controlled - protocol Central Line Necessity Reviewed: N/A Santamaria: N/A Disposition: transfer to floor Patient's decisional capacity: has capacity to make decisions Communication with Patient/Family: No meeting held. Goals of Care: improve respiratory status, wean respiratory parameters, improve mental status to baseline and decrease pain and discomfort I have provided critical care diagnostic services for neurologic failure, renal failure, respiratory failure, overwhelming infection and therapeutic services with renal replacement therapy assessment, frequent evaluation and titration of therapies for this patient on the date referenced above. Timedevoted to patient care services described in this note equal: 40 minutes total critical care time exclusive of time spent performing procedures or time spent by another provider or resident. DISCLAIMER: This dictation was verbally transcribed via Dictation system. Occasional Errors, spelling flaws andomissions are inherent in digital transcriptions. Please contact the undersigned for any clarification/correction in the dictated transcript as needed. * Carl Adrian MD - 03/04/2023 3:25 PM EDT CCM - PROGRESS NOTE [facility]-[address] [id number] Name: Mayra Salvador Location: [id number] Date: 03/04/2023 Time: 3:25 PM Care during the described time interval was provided by me. I have reviewed this patient's available data, including medical history, events of note, physical examination and test results. PATIENT DESCRIPTION: Patient is a 72 year old female, brought to the hospital for evaluation by Zoraner falling out of her wheelchair. Noted that she has falling off a wheelchair twice in the past 2 days. Complains of lower back pain and buttock pain which is chronic. Noted that she has had pain or have live and has chronically been on Percocet and baclofen. Has been having nausea with associated vomiting also for about 2 days. Has felt quite weak and recently has been having left-sided abdominal pain. Has a history of kidney stones. At baseline patient usually wears 3 L of oxygen at night and as needed during the day. She has sleep apnea but was unable to tolerate the mask. She has history of urinary incontinence but denies any dysuria or burning sensation. Had associated fever with chills. At the emergency room on arrival was noted to be shivering. He had imaging studies that showedevidence of left hydronephrosis with obstructing kidney stone. She was hypotensive and was given sepsis fluid and subsequently started on Levophed and transferredto the intensive care unit further evaluation and management. Urology was contacted yesterday and plans to patient today for possible stent placement. Patient was continued on antibiotics. Remains weak and sleepy but arousable. Able to answer simple questions and obey simple commands. Has not been very ambulatory at baseline and mostly uses a wheelchair. Can ambulate minimally with a walker. Lives at home with son 03/04: Patient was taken to the OR yesterday by Urology and had stone removed and left stent placed.Findings during the procedure was suggestive of pyelonephritis. Patient continues to be on antibiotics based on culture results. Still slightly sleepy but much improved when compared to prior. Able to maintain decent saturation when awake but tends to desaturate while sleeping and requires oxygen supplementation. Patient given Miralax and senokot. MEDICATIONS: Current Facility-Administered Medications Medication Dose Route Frequency Provider Baclofen (Lioresal) tab 10 mg 10 mg Oral HS Carl Adrian MD hEParin inj 7,500 Units 7,500 Units Subcutaneous Q8H Carl Adrian MD Polyethylene Glycol 3350 (Miralax) oral powder 17 g 1 Packet Oral Daily(AM) Carl Adrian MD senna-docusate (Senokot-S) 1 Tablet 1 Tablet Oral Daily(AM) Carl Adrian MD Acetaminophen (Tylenol) tab 650 mg 650 mg Oral Q4H PRN Scarlett Bacon PA-C albuterol-ipratropium (Duoneb) inhalation solution 3 mL 3 mL Nebulizer Q6H PRN Carl Adrian MD dextrose 50 % inj 25 mL 25 mL IV Push PRN Juan Carlos Ackerman PA-C dextrose 50 % inj 50 mL 50 mL IV Push PRN Juan Carlos Ackerman PA-C fentaNYL (PF) inj 50 mcg 50 mcg IV Push Q6H PRN Carl Adrian MD glucagon (Glucagen) inj 1 mg 1 mg Intramuscular PRN Juan Carlos Ackerman PA-C Glucose (Glutose 15) 40 % gel 15 g of glucose 15 g of glucose Oral PRN Juan Carlos Ackerman PA-C Glucose (Glutose 15) 40 % gel 30 g of glucose 30 g of glucose Oral PRN Juan Carlos Ackerman PA-C glucose chew tab 16 g 16 g Oral PRN Juan Carlos Ackerman PA-C insulin aspart (NovoLOG) inj Subcutaneous With Meals and HS Carl Adrian MD isolyte-S pH 7.4 infusion Intravenous Continuous Carl Adrian MD rOPINIRole (Requip) tab 3 mg 3 mg Oral QHS Robert Neal, [facility] amitriptyline (Elavil) tab 10 mg 10 mg Oral QHS Juan Carlos Ackerman PA-C aspirin enteric coated tab 81 mg 81 mg Oral Daily(AM) Juan Carlos Ackerman PA-C atorvaSTATin (Lipitor) tab 40 mg 40 mg Oral Daily(AM) Juan Carlos Ackerman PA-C buPROPion (Wellbutrin) tab 75 mg 75 mg Oral BID(AM/PM) Juan Carlos Ackerman PA-C chlorHEXIDINE (Periogard) 0.12 % oral rinse 15 mL 15 mL Oral mucosal membrane BID (0800,2000) Juan Carlos Ackerman PA-C fluticasone furoate-vilanterol (BREO ellipta) 100-25 MCG/ACT inhaler 1 Puff 1 Puff Inhalation Daily(AM) Juan Carlos Ackerman PA-C LORAzepam (Ativan) tab 0.5 mg 0.5 mg Oral Q8H PRN Juan Carlos Ackerman PA-C meclizine (Antivert) tab 12.5 mg 12.5 mg Oral TID PRN Juan Carlos Ackerman PA-C montelukast (Singulair) tab 10 mg 10 mg Oral Daily(AM) Juan Carlos Ackerman PA-C Oral Hygiene: Mouth Swab with dentifrice Oral Q4H Limited (00;04;12;16) Juan Carlos Ackerman PA-C pantoprazole (Protonix) tab 40 mg 40 mg Oral BID(AM/PM) Juan Carlos Ackerman PA-C piperacillin-tazobactam (ZOSYN) 4.5 g in D5W 100 mL (FOUR hour infusion) 4.5 g IV Piggyback [id number] Carlos Ackerman PA-C sodium chloride 0.9 % flush peripheral karen 3 mL 3 mL IV Push Q8H Juan Carlos Ackerman PA-C umeclidinium [place] (INCRUSE ellipta) 62.5 MCG/ACT inhaler 1 Puff 1 Puff Inhalation Daily(AM) Juan Carlos Ackerman PA-C CONSTITUTIONAL DATA: BP: 98 mmHg/62 mmHg (03/04/23 1400) Pulse: 96 (03/04/23 1400) Temp: 36.11 C (03/04/23 0715) Resp: 19 (03/04/23 1400) SpO2: 94 % (03/04/23 1400) Intake/Output Summary (Last 24 hours) at 03/04/2023 1525 Last data filed at 03/04/2023 1351 Gross per 24 hour Intake 3989.41 ml Output 1285 ml Net 2704.41 ml PHYSICAL EXAM: Constitutional: no acute distress HEAD: unchanged ENT: oral mucosa - slightly moist Eyes: sclera and conjunctiva normal Neck: supple CV: First and second heart sounds Chest: normal respiratory effort at rest with nasal cannula in place. Air entry remains mildly decreased mostly at the bases with occasional transmitted sounds noted. Abdomen: soft, bowel sounds normal, still some tenderness around the left lumbar area-improved. Extremities: no edema Skin: warm, dry: Neuro: much more awake but remains slightly drowsy. Able to answer simple questions and obey simplecommands. Moves extremities. Psych: slightly sleepy but arousable. LABORATORY VALUES: reviewed 03/03/23 16:09 03/04/23 05:49 Sodium 135 135 Potassium 4.7 4.2 Chloride 104 104 CO2 20 (L) 20 (L) BUN 41 (H) 41 (H) Creatinine 2.3 (H) 2.1 (H) Estimated Glomerular Filtration Rate 22 (L) 24 (L) Anion Gap 11 11 Glucose 130 (H) 98 Calcium 7.9 (L) 7.6 (L) Calcium, Ionized 1.05 (L) Calcium, Ionized, Whole Blood 1.14 Magnesium 1.7 2.0 Phosphorus 3.1 03/03/23 16:13 03/04/23 05:49 WBC 19.91 (H) 14.26 (H) HGB 10.1 (L) 9.2 (L) HCT 32.2 (L) 29.3 (L) MCV 88.7 87.7 PLT 122 (L) 105 (L) RADIOGRAPHIC STUDIES: reviewed Principal Problem: Septic shock secondary to E coli Obstructive nephropathy - left ureteric stones s/p left stent placement Metabolic encephalopathy likely due to sepsis Left pyelonephritis Acute renal failure Type 2 diabetes mellitus Chronic pain with chronic opiate use Spinal stenosis - with lumbar degenerative disease Ambulatory dysfunction Gastroesophageal reflux disease without esophagitis Recent recurrent falls RLS (restless legs syndrome) History of hypertension Chronic respiratory failure Obstructive sleep apnea COPD, group C, by GOLD 2017 classification (HCC) Morbid obesity due to excess calories Depression with anxiety SYSTEM BASED PLAN: Central nervous system Poor mental status likely due to a combination of sepsis and medication - improved Continue pain management Will gently restart patient's medication as she improves Pain management Neuro watch Respiratory system Continue oxygen supplementation wean down FiO2 as tolerated Patient actually likely requires oxygen supplementation while sleepy Continue bronchodilators Cardiovascular system Continue IV fluid and will decrease to 150 Will gently restart patient's home medication as she improves Gastrointestinal system Reflux precautions Nutrition PO intake Diabetic diet Endo Blood glucose as per protocol Insulin as per protocol Normal TSH level Hematology DVT prophylaxis Musculoskeletal PT/OT Infectious disease Follow final culture results Discontinue vancomycin Transition patient to Rocephin 2 gm if sensitive after getting final culture [id number] Repeat blood cultures today Renal Continue IV fluids and decrease to 50 Monitor and supplement electrolytes Ionized calcium level in am Monitor input and output Skin Stable General Care management evaluation GLOBAL ISSUES: Analgesia: protocol with control Sedation: N/A Delirium/Confusion Assessment Method for ICU (CAM-ICU): CAM-ICU negative HOB Elevation: greater than 30 degress Nutrition: PO DVT Prophylaxis: chemoprophylaxis with pneumatic compression devices Stress Ulcer Prophylaxis: PPI therapy for other indication Glycemic Control: controlled - protocol Central Line Necessity Reviewed: N/A Santamaria: will remove Disposition: keep in ICU Patient's decisional capacity: has capacity to make decisions Communication with Patient/Family: No meeting held. Goals of Care: improve respiratory status, wean respiratory parameters, stabilize hemodynamic status, improve mental status to baseline and decrease pain and discomfort I have provided critical care diagnostic services for circulatory failure, renal failure, overwhelming infection and therapeutic services with volume resuscitation, neurological monitoring and treatment, renal replacement therapy assessment, frequent evaluation and titration of therapies for this patient on the date referenced above. Time devoted to patient care services described in this note equal: 45 minutes total critical care time exclusive of time spent performing procedures or time spentby another provider or resident. DISCLAIMER: This dictation was verbally transcribed via Dictation system. Occasional Errors, spelling flaws andomissions are inherent in digital transcriptions. Please contact the undersigned for any clarification/correction in the dictated transcript as needed. * Cassy Salvador MD - 03/03/2023 4:14 AM EDT EVENT NOTE - eICU [facility]-[address] [id number] Name: Mayra Salvador Location: [facility] [id number] Date: 03/03/2023 Time: 4:15 AM I have reviewed physiologic trends, reviewed laboratory values, reviewed pertinent imaging studies and spoke with Hospitalist. In summary a 72 year old female with past medical history significant for type 2 diabetes COPD chronically on 3 L nasal cannula hyperlipidemia gastroesophageal reflux hypertension aortic stenosis renal stones restless leg syndrome obesity who presented to the emergency room due to nausea vomiting and a fall from her wheelchair. CT scan showed edematous left kidney with obstructing renal stones. Patient noted to be hypotensive in the emergency department despite fluid resuscitation with 3 L normal saline and was started on Levophed. Patient admitted to the ICU for further monitoring.. Principal Problem: Septic shock (HCC) Active Problems: Type 2 diabetes mellitus with hemoglobin A1c goal of less than 7.0% (HCC) Gastroesophageal reflux disease without esophagitis RLS (restless legs syndrome) HTN, goal below 130/80 COPD, group C, by GOLD 2017 classification ([facility]) Morbid obesity due to excess calories (HCC) Depression with anxiety Complicated UTI (urinary tract infection) Hydronephrosis, left Resolved Problems: * No resolved hospital problems. * Plan: Patient is alert and able to answer questions. She is protecting her airway and oxygenating well on 3 L nasal cannula. Patient has history of COPD and is on Advair 250-50 Spiriva and Singulair at home. Would continue home COPD medications as well as p.r.n. albuterol nebulizer. Patient hypotensive in the emergency department with lactate elevated at 2.4. Patient currently on Levophed. Would continue fluid resuscitation and follow lactate until cleared. Check troponin and EKG. Hypotension likely due to sepsis in the setting of urinary tract infection. UA consistent with infection. CT scanshowing obstructing left renal calculi. Urology consult evaluation pending. Cultures pending. Patient started on Zosyn and vancomycin. Patient with acute kidney injury with creatinine of 2.4 baselineis 0.9. Would follow renal function and urine output. Follow electrolytes and check magnesium and phos. NPO for now and GI prophylaxis. Patient started on stress dose steroids. Follow fingerstick and maintain glycemic control given history of diabetes. Will need DVT prophylaxis. Will continue to follow overnight in ICU. documented in this encounter H&P Notes * Alcides Britt MD - 03/02/2023 11:47 PM EDT Images from the original note were not included. [facility] 11B/X PRESENTING PROBLEM: Fever, chills, nausea, vomiting x1d HPI: This is a 72 yo woman with below pmh that includes dm2, copd c, obesity, on chronic supplemental o2, htn, restless legs, and prior kidney stones. She reports nausea vomiting yesterday and that she fell out of her wheel chair today. She came to ED, where she was shivering and while being workedup for trauma, was found to have edematous left kidney with obstructing kidney stones. Case was discussed by ED provider with urologist who felt that she didn't need immediate stenting and recommended to admit her on abx and that she could be stented tomorrow. He requested that we contact the office in morning. Patient was hypotensive in ED and after sepsis fluid bolus, was placed on pressors. I d iscussed case with dr. Salvador from EICU and admission to ICU was felt warranted. Patient denies headache. No diarrhea. She said that she has been making very little urine. ROS: see hpi for pertinent ros; 10 systems reviewed and otherwise negative. Subjective Patient's past history, medications, and allergies were reviewed. Objective Physical Exam Most Recent Vital Signs: BP: 94 mmHg/51 mmHg (03/02/232299) Pulse: 102 (03/02/232318) Temp: 36.94 C (03/02/232318) Resp: 22 (03/02/232299) SpO2: 91 % (03/02/232029) Constitutional: (+) ill appearing elderly woman resting in bed; she is wearing supplemental o2 and shivering. HEENT: normal: normocephalic, atraumatic Eyes: sclera and conjunctiva normal; crust around eye lids. Neck: supple CV: normal rate Chest: normal respiratory effort, lungs clear to auscultation Abdomen: obese but soft, bowel sounds normal, no tenderness Extremities: no edema; feet warm Skin: warm, dry, intact: Neuro: alert, oriented to person, place, weak but otherwise non-focal Urethral Catheter Regular catheter (Active) Number of days: 0 Peripheral Line Lower;Posterior;Right Arm 20 Gauge (Active) Number of days: 0 STUDIES: Labs and other studies reviewed with pertinent findings noted below: Results for orders placed or performed during the hospital encounter of 03/02/23 CBC Result Value Ref Range WBC 28.63 (H) 4.00 - 10.80 K/uL RBC 4.29 3.85 - 5.15 M/uL HGB 12.0 12.0 - 15.3 g/dL HCT 37.0 36.0 - 45.2 % MCV 86.2 81.5 - 97.5 fL MCH 28.0 27.0 - 34.0 pg MCHC 32.4 32.0 - 36.0 g/dL RDW 15.1 11.5 - 15.5 % PLT 157 140 - 400 K/uL MPV 11.4 6.6 - 11.1 fL nRBCs 0 <=0 /100 WBCs RESPIRATORY PATHOGEN PANEL, PCR Result Value Ref Range Adenovirus by PCR Negative Negative Coronavirus 229E by PCR Negative Negative Coronavirus HKU1 by PCR Negative Negative Coronavirus NL63 by PCR Negative Negative Coronavirus OC43 by PCR Negative Negative Coronavirus SARS-CoV-2 by PCR Negative Negative Human Metapneumovirus by PCR Negative Negative Rhinovirus/Enterovirus by PCR Negative Negative Influenza A Virus by PCR Negative Negative Influenza B Virus by PCR Negative Negative Parainfluenza Virus 1 by PCR Negative Negative Parainfluenza Virus 2 by PCR Negative Negative Parainfluenza Virus 3 by PCR Negative Negative Parainfluenza Virus 4 by PCR Negative Negative Respiratory Syncytial Virus by PCR Negative Negative Bordetella pertussis by PCR Negative Negative Chlamydia pneumoniae by PCR Negative Negative Mycoplasma pneumoniae by PCR Negative Negative Bordetella parapertussis by PCR Negative Negative COMPREHENSIVE METABOLIC PANEL Result Value Ref Range BUN 32 (H) 6 - 20 mg/dL Creatinine 2.4 (H) 0.5 - 1.0 mg/dL Estimated Glomerular Filtration Rate 21 (L) >=60 mL/min Sodium 134 (L) 135 - 146 mmol/L Potassium 4.6 3.5 - 5.1 mmol/L Chloride 100 98 - 107 mmol/L CO2 25 22 - 32 mmol/L Anion Gap 9 7 - 15 mmol/L Glucose 122 (H) 70 - 120 mg/dL Albumin 3.1 (L) 3.8 - 5.0 g/dL AST 30 10 - 35 U/L Alkaline Phosphatase 86 35 - 130 U/L Bilirubin, Total 0.7 <=1.2 mg/dL Calcium 8.7 8.4 - 10.2 mg/dL Protein 6.6 6.0 - 8.3 g/dL ALT 18 10 - 35 U/L LACTATE,WHOLE BLOOD Result Value Ref Range Lactate, Whole Blood 2.4 (H) 0.4 - 2.0 mmol/L LIPASE Result Value Ref Range Lipase 10 (L) 13 - 60 U/L URINALYSIS, REFLEX TO MICROSCOPIC Result Value Ref Range Color, Urine Yellow Light Yellow, Yellow, Dark Yellow Clarity, Urine Cloudy (A) Clear Glucose, Urine Negative Negative mg/dL Bilirubin, Urine Small (A) Negative Ketone, Urine Negative Negative mg/dL Specific [place], Urine 1.017 1.003 - 1.030 Blood, Urine Large (A) Negative pH, Urine 5.5 5.0 - 7.5 Units Protein, Urine >=300 (A) Negative mg/dL Urobilinogen, Urine 1.0 0.2, 1.0 mg/dL Nitrite, Urine Negative Negative Esterase, Urine Large (A) Negative MICROSCOPIC EXAM, URINE Result Value Ref Range RBC, Urine WBC, Urine 50+ (A) 0 - 2 /HPF Bacteria, Urine >200 (A) 0 - 25 /HPF *Note: Due to a large number of results and/or encounters for the requested time period, some results have not been displayed. A complete set of results can be found in Results Review. XR HIP UNILAT 2-3 VIEWS INCLUDING AP PELVIS Final Result PROCEDURE INFORMATION: Exam: XR Right Hip Exam date and time: 03/02/2023 6:51 PM Age: 72 years old Clinical indication: Other: Fell out of wheelchair, pain to lower extremities. Denies chest complaints. ; Additional info: Fall, pain TECHNIQUE: Imaging protocol: Radiologic exam of the right hip. Views: 2 or 3 views hip with pelvis when performed. COMPARISON: CT L SPINE WO CONTRAST 03/02/2023 6:46 PM FINDINGS: Bones/joints: No acute fracture or dislocation in the right hip. Advanced degenerative changes in the visualized lumbar spine. Soft tissues: Unremarkable. IMPRESSION IMPRESSION: No acute findings. THIS DOCUMENT HAS BEEN ELECTRONICALLY SIGNED BY FERDINAND GEORGE MD XR CHEST 2 VIEWS Final Result PROCEDURE INFORMATION: Exam: XR Chest Exam date and time: 03/02/2023 6:51 PM Age: 72 years old Clinical indication: Other: Fell out of wheelchair, pain to lower extremities. Denies chest complaints. ; Additional info: Fever TECHNIQUE: Imaging protocol: Radiologic exam of the chest. Views: 2 views. COMPARISON: CR CHEST PA 06/12/2022 11:57 AM FINDINGS: Lungs: Unremarkable. No consolidation. Pleural spaces: Unremarkable. No pleural effusion. No pneumothorax. Heart/Mediastinum: Unremarkable. No cardiomegaly. Bones/joints: Moderate degenerative changes in the spine. IMPRESSION IMPRESSION: No acute findings. THIS DOCUMENT HAS BEEN ELECTRONICALLY SIGNED BY FERDINAND GEORGE MD CT L SPINE WO CONTRAST Final Result Addendum (preliminary) 1 of 1 Correction to findings: 2 obstructing calculi in the left renal pelvis measuring 1.1 and 0.7 cm respectively causing mild prominence of the left renal collecting system. THIS DOCUMENT HAS BEEN ELECTRONICALLY SIGNED BY FERDINAND GEORGE MD Final EXAM CT scan of the lumbar spine without contrast - 03/02/2023. HISTORY 72 years old female status post fall complaining of back pain. TECHNIQUE Spiral axial acquisition was performed through the lumbar spine; axial and reformatted sagittal and coronal images were reviewed in bone and soft tissue windows. COMPARISON Radiographs of the lumbar spine dated 12/27/2021. FINDINGS Normal alignment is maintained with preservation of lumbar lordosis. No evidence of fracture, subluxation, or destructive lesion is seen. Degenerative changes are present throughout the lumbar spine, most advanced at L4-L5 and L5-S1 junctions, where there is loss of disc height, vacuum disc phenomenon, endplate irregularities and sclerosis, marginal endplate osteophytes, diffuse disc bulging, facet arthropathy, and ligamentum flavum thickening with resultant severe spinal canal stenosis, narrowing of the lateral recesses, and severe bilateral neural foraminal narrowing with impingement of the exiting L4 and L5 nerve roots. Prespinal and paraspinal soft tissues are within normal limits. Atherosclerotic calcifications are present in the abdominal aorta and its branches. No additional significant abnormalities are detected in the imaged abdominal and pelvic structures. IMPRESSION IMPRESSION 1. No evidence of traumatic injury or other convincing acute abnormality. Degenerative changes in the lumbar spine as described above, most advanced at L4-L5 and L5-S1 junctions, where there is severe spinal canal stenosis, narrowing of the lateral recesses, and severe bilateral neural foraminal narrowing with compression of the exiting nerve roots. CT ABD/PELVIS WO IV/ORAL CONTRAST Final Result PROCEDURE INFORMATION: Exam: CT Abdomen And Pelvis Without Contrast Exam date and time: 03/02/2023 6:46 PM Age: 72 years old Clinical indication: Abdominal pain; Additional info: Fall. Back pain TECHNIQUE: Imaging protocol: Computed tomography of the abdomen and pelvis without contrast. Radiation optimization: All CT scans at this facility use at least one of these dose optimization techniques: automated exposure control; mA and/or kV adjustment per patient size (includes targeted exams where dose is matched to clinical indication); or iterative reconstruction. REPORTING DATA: Count of CT and Cardiac NM exams in prior 12 months: This patient has received 0 known CTs and 0 known cardiac nuclear medicine studies in the 12 months prior to the current study. COMPARISON: US RENAL 12/16/2019 1:31 PM FINDINGS: Liver: Normal. No mass. Gallbladder and bile ducts: Normal. No calcified stones. No ductal dilation. Pancreas: Normal. No ductal dilation. Spleen: 2.4 cm simple splenic cyst. No splenomegaly. Adrenal glands: Normal. No mass. Kidneys and ureters: The left kidney is mildly edematous compared to the right with subtle adjacent perinephric fat stranding. Mild prominence of the left renal collecting system with 2 renal calculi within the left renal pelvis measuring 1.1 and 0.7 cm respectively. Right kidney is unremarkable. Stomach and bowel: Scattered diverticulosis of the colon without diverticulitis. No obstruction. No mucosal thickening. Appendix: No evidence of appendicitis. Intraperitoneal space: Unremarkable. No free air. No significant fluid collection. Vasculature: Atherosclerosis of the abdominal aorta and iliac arteries without aneurysm. Lymph nodes: Unremarkable. No enlarged lymph nodes. Urinary bladder: Bladder is decompressed limiting evaluation. Reproductive: Unremarkable as visualized. Bones/joints: Advanced degenerative changes in the lumbar spine. No acute fractures. No acute fracture. Soft tissues: Unremarkable. IMPRESSION IMPRESSION: 1. Edematous appearance of the left kidney with mild prominence of the left renal collecting system secondary to 2 obstructing calculi in the left renal pelvis measuring up to 1.1 and 0.7 cm respectively. 2. Colonic diverticulosis without diverticulitis. 3. Atherosclerotic vascular disease. THIS DOCUMENT HAS BEEN ELECTRONICALLY SIGNED BY FERDINAND GEORGE MD Assessment and Plan IMPRESSION: Principal Problem: Septic shock ([facility]) Active Problems: Type 2 diabetes mellitus with hemoglobin A1c goal of less than 7.0% ([facility]) Gastroesophageal reflux disease without esophagitis RLS (restless legs syndrome) HTN, goal below 130/80 COPD, group C, by GOLD 2017 classification ([facility]) Morbid obesity due to excess calories ([facility]) Depression with anxiety Complicated UTI (urinary tract infection) Hydronephrosis, left Resolved Problems: * No resolved hospital problems. * DIFFERENTIAL AND PLAN: Patient has severe sepsis/shock as she requires pressor medications after sepsis dose fluid bolus. Source is urinary. She will need to obtain local control of infection and will therefore consult urology service. In meantime, admit to ICU on broad spectrum abx. -continue zosyn and give dose vancomycin; do mrsa screen -stress steroids -ivf -pressors to map above 65 -continue supplemental o2 -hold cozaar and lasix - insulin for dm2 -continue copd meds -critical care consult - discussed case with dr. Salvador. -npo and consult urology PHARMACOLOGIC VTE PROPHYLAXIS: scd CODE STATUS: Full Code EXPECTED DISCHARGE DATE: 2 days or more approximately 55 minutes of critical care time used during this admission including treatment of septic shock and coordination of care with sub-specialists. documented in this encounter Procedure Notes * Rylee To DO - 03/06/2023 3:27 AM EDTAssociated Order(s): EKG REASON FOR STUDY: rhythm change CONCLUSIONS: Atrial fibrillation with rapid ventricular response Abnormal ECG When compared with ECG of 03-MAR-2023 15:27, Atrial fibrillation has replaced Sinus rhythm Ventricular Rate: 116 QRS Duration: 104 QT/QTc: 280/389 ms P-R-T [place]: 0 : 33 : 46 degrees * Rylee To DO - 03/03/2023 3:27 PM EDTAssociated Order(s): EKG REASON FOR STUDY: ekg changes CONCLUSIONS: Sinus tachycardia with 1st degree AV block with Premature atrial complexes Otherwise normal ECG When compared with ECG of 12-JUN-2022 09:44, Premature atrial complexes are now Present Vent. rate has increased BY 39 BPM Ventricular Rate: 118 Atrial Rate: 118 FL Interval: 224 QRS Duration: 88 QT/QTc: 326/456 ms P-R-T [place]: 50 : 43 : 51 degrees documented in this encounter Consult Notes * Dory Ceja MD - 03/06/2023 12:36 PM EDTAssociated Order(s): INFECTIOUS DISEASE CONSULT IP CONSULT - Infectious Disease [facility] [id number] Name: Mayra Salvador Location: [facility] [id number] Date: 03/06/2023 Time: 12:36 PM REQUESTING SERVICE: [facility] REASON FOR CONSULT: Sepsis due to complicated UTI and bacteremia. Blood & Urine CX grew Ecoli HPI: Patient is a 72 year old female admitted to the hospital on 03/02/2023.PMHx DM2, COPD, obesity,on chronic supplemental o2, HTN, restless legs, and prior kidney stones. She reports nausea vomiting and subsequently fell out of her wheel chair . She came to ED, where she was found to have edematous left kidney with obstructing kidney stones. Case was discussed with urologist who felt that she didn't need immediate stenting and recommended to admit her and she was started on zosyn and vancomycin .Lab test revealed NICHELLE and she was taken to the OR on 03/04/23 by Urology and had stone removed and left stent placed with findings suggestive of pyelonephritis .Blood and urine cultures have grownpan sensitive E Coli and she is on ceftriaxone ALLERGIES: Metformin, Nsaids, Prednisone, Sulfa antibiotics, and Tramadol PAST MEDICAL HISTORY: Past Medical History: Diagnosis Date Carotid stenosis, non-symptomatic 11/19/2012 COPD, severe ([facility]) 06/23/2011 Depression with anxiety 06/30/2022 DM type 2, goal A1c below 7 Diabetes Type II, Controlled Dyslipidemia 07/26/2009 Per Lipid Taxonomy. Dyslipidemia, goal LDL below 100 07/26/2009 Per Lipid Taxonomy. Dyslipidemia, goal LDL below 160 Hypercholesterolemia Esophageal reflux 11/19/2007 Gastroesophageal reflux disease without esophagitis 11/19/2007 Generalized osteoarthritis HTN, goal below 140/80 04/05/2012 Per HTN Protocol #27. HTN, goal below 140/90 HYPERSOMNI W SLEEP APNEA-nocturnal oxygen 07/22/2004 Lumbago Moderate aortic stenosis 06/11/2021 Nonrheumatic aortic valve stenosis 11/25/2018 OA (osteoarthritis) of knee 07/30/2012 Recurrent major depressive disorder, in full remission (HCC) 06/09/2021 Renal stone 03/29/2012 RLS (restless legs syndrome) 05/18/2013 Senile osteoporosis 06/09/2021 SPINAL STENOSIS-LUMBAR 08/09/2007 Tobacco use disorder 03/22/2004 PAST SURGICAL HISTORY: Past Surgical History: Procedure Laterality Date CATARACT SURGERY,COMPLEX 08/28/2009 left eye COLONOSCOPY, DIAGNOSTIC (RECTUM) 06/06/2021 poor prep, repeat / [facility] CYSTOSCOPY 02/22/2014 ull left with stent exchange CYSTOSCOPY/INSERTION OF STENT Left 03/03/2023 CYSTOURETHROSCOPY WITH INSERTION URETERAL STENT performed by Chris Aldridge Jr., MD at OR [facility] CYSTOSCOPY/REMOVE OBJECT, SIMPLE 03/20/2014 EGD, FLEXIBLE, DIAGNOSTIC 06/06/2021 normal bx / [facility] MISCELLANEOUS ORDER ([facility] ONLY) 03/16/2008 Right breast punch biopsy (benign) - Dr. Orozco REMOVAL OF TONSILS, AGE 12+ Tonsils Removal,12+ Y/O SOCIAL HISTORY: Social History Tobacco Use Smoking status: Former Packs/day: 0.25 Years: 48.00 Pack years: 12.00 Types: Cigarettes Quit date: 05/19/2014 Years since quittin.8 Smokeless tobacco: Never Vaping Use Vaping Use: Never used Substance Use Topics Alcohol use: Yes Comment: rare Drug use: No FAMILY HISTORY and FAMILY STATUS: Family History Problem Relation Age of Onset Heart Disorder Brother Colon cancer Brother Heart Disorder Brother Allergies Son nasal allergies Heart Disorder Father Heart Disorder Mother Diabetes Mother Breast Cancer Mother 60s Eye Problems No significant family history denies Fh: AMD, GLAUCOMA, RD'S, BLINDNESS Family Status Relation Status Bro Bro Obie - shortly after Obie Alive Son Alive Son Alive Son Alive Obie Alive Fa (Not Specified) Mo (Not Specified) No history (Not Specified) ROS: Constitutional: (-) fever chills sweats or weight loss Pulmonary: (+) dyspnea with exertion Rest of ROS negative PHYSICAL EXAMINATION: Most Recent Vital Signs: BP: 109 mmHg/61 mmHg (03/06/23 1044) Pulse: 81 (03/06/23 1205) Temp: 36.72 C (03/06/23 1044) Resp: 16 (03/06/23 1044) SpO2: 94 % (03/06/23 1205) Vital Signs Last 24 Hours: Systolic BP: Most Recent Systolic BP Av mmHg Min: 103 mmHg Max: 116 mmHg Temperature: Most Recent Temperature Av.8 C Min: 36.39 C Max: 37.11 C Pulse: Pulse Av.5 Min: 74 Max: 110 Respirations: Resp Av.3 Min: 14 Max: 18 SpO2: SpO2 Av.4 % Min: 94 % Max: 100 % Constitutional: no acute distress HEENT: normocephalic atraumatic Eyes: sclera and conjunctiva normal CV: normal rate, normal rhythm Chest: normal respiratory effort Abdomen: soft, obese Skin: warm, dry: Neuro: drowsy LABS: Labs reviewed as indicated below: I have reviewed her labs WBC [id number] MICROBIOLOGY DATA: I have reviewed her cultures Escherichia coli MICROBROTH DILUTIONS Ampicillin Susceptible Cefepime Susceptible Ceftriaxone Susceptible Ciprofloxacin Susceptible Gentamicin Susceptible Piperacillin Tazobactam Susceptible Trimeth/Sulfamethoxazole Susceptible IMAGING: I have reviewed her imaging IMPRESSION: 1. Edematous appearance of the left kidney with mild prominence of the left renal collecting system secondary to 2 obstructing calculi in the left renal pelvis measuring up to 1.1 and 0.7 cm respectively. 2. Colonic diverticulosis without diverticulitis. 3. Atherosclerotic vascular disease. IMPRESSION: Patient with history of kidney stones who presented with nausea and vomiting and was found to have obstructing left renal stones and is s/p cystoscopy and temporary indwelling stent to left kidney with blood and urine cultures growing mancini sensitive E Coli on ceftriaxone 1)Left pyelonephritis 2)Left kidney stone s/p stent 3)E Coli bacteremia 4)E Coli UTI/pyelonephritis RECOMMENDATIONS: Continue ceftriaxone while inpatient ,can switch to PO ciprofloxacin on discharge if no contra-indications such as QT prolongation for a total of 14 days Thank you for allowing us toparticipate in the care of this patient ID will sign off * Mundo Ross, PT - 03/06/2023 10:26 AM EDTAssociated Order(s): ADULT PHYSICAL THERAPY CONSULT IP GENERAL EVALUATION - Physical Therapy [address] [phone] Name: Mayra Salvador [address]: [address] Date: 03/06/2023 Time: 12:46 PM Mayra Salvador is a/an 72 year old female. Patient Status: Inpatient Insurance: Payor: [employer] MEDICARE ADVANTAGE Plan: [employer] CHOICE PPO Product Type: *No Product type* Payor: [facility] MEDICAID Plan: [facility] Product Type: *No Product type* Patient Seen: at bedside, nursing cleared patient for therapy Patient Identified By: Name, ID Band and Date Diagnosis: Gait dysfunction, s/p fall, septic shock, complicated UTI (03/06/23926) Status of treatment: Evaluation completed (03/06/23 102) Orders: PT evaluation and treatment (03/06/23926) Weight Bearing Status: Weight bearing as tolerated;RUE;LUE;RLE;LLE (03/06/23926) Precautions: Alarms;Falls;Safety;Oxygen (03/06/23926) Total Treatment Time--free text: 59 minutes (03/06/23 102) HPI: Per chart review: "This is a 72 yo woman with below pmh that includes dm2, copd c, obesity, onchronic supplemental o2, htn, restless legs, and prior kidney stones. She reports nausea vomiting yesterday and that she fell out of her wheel chair today. She came to ED, where she was shivering andwhile being worked up for trauma, was found to have edematous left kidney with obstructing kidney st ones. Case was discussed by ED provider with urologist who felt that she didn't need immediate stenting and recommended to admit her on abx and that she could be stented tomorrow. He requested that we contact the office in morning. Patient was hypotensive in ED and after sepsis fluid bolus, was placed on pressors. I discussed case with dr. Salvador from EICU and admission to ICU was felt warranted. Patient denies headache. No diarrhea. She said that she has been making very little urine. " Past Medical History: Past Medical History: Diagnosis Date Carotid stenosis, non-symptomatic 11/19/2012 COPD, severe (HCC) 06/23/2011 Depression with anxiety 06/30/2022 DM type 2, goal A1c below 7 Diabetes Type II, Controlled Dyslipidemia 07/26/2009 Per Lipid Taxonomy. Dyslipidemia, goal LDL below 100 07/26/2009 Per Lipid Taxonomy. Dyslipidemia, goal LDL below 160 Hypercholesterolemia Esophageal reflux 11/19/2007 Gastroesophageal reflux disease without esophagitis 11/19/2007 Generalized osteoarthritis HTN, goal below 140/80 04/05/2012 Per HTN Protocol #27. HTN, goal below 140/90 HYPERSOMNI W SLEEP APNEA-nocturnal oxygen 07/22/2004 Lumbago Moderate aortic stenosis 06/11/2021 Nonrheumatic aortic valve stenosis 11/25/2018 OA (osteoarthritis) of knee 07/30/2012 Recurrent major depressive disorder, in full remission (HCC) 06/09/2021 Renal stone 03/29/2012 RLS (restless legs syndrome) 05/18/2013 Senile osteoporosis 06/09/2021 SPINAL STENOSIS-LUMBAR 08/09/2007 Tobacco use disorder 03/22/2004 Past Surgical History: Past Surgical History: Procedure Laterality Date CATARACT SURGERY,COMPLEX 08/28/2009 left eye COLONOSCOPY, DIAGNOSTIC (RECTUM) 06/06/2021 poor prep, repeat / [facility] CYSTOSCOPY 02/22/2014 ull left with stent exchange CYSTOSCOPY/INSERTION OF STENT Left 03/03/2023 CYSTOURETHROSCOPY WITH INSERTION URETERAL STENT performed by Chris Aldridge Jr., MD at OR [facility] CYSTOSCOPY/REMOVE OBJECT, SIMPLE 03/20/2014 EGD, FLEXIBLE, DIAGNOSTIC 06/06/2021 normal bx / [facility] MISCELLANEOUS ORDER ([facility] ONLY) 03/16/2008 Right breast punch biopsy (benign) - Dr. Orozco REMOVAL OF TONSILS, AGE 12+ Tonsils Removal,12+ Y/O Subjective: Pt expressed willingness to participate in PT consult. Social History/Disposition Lives with: Family (son and daughter) (03/05/231112) Assistance available: Yes (son or daughter w/ pt /) (03/06/23926) Dwelling type: Multi-story home (with first floor setup) (03/05/23 111) Entry steps: 3 (3 at front w/ 1 railing, 2 at back w/ no rail; typically uses front) (03/06/23926) Inside steps: None (0 on 1st floor, pt stays on 1st floor at all times) (03/06/23926) Bedroom location: 1st floor (03/06/23926) Bath location: 1st floor powder room (pt sponge baths) (03/06/23926) Prior Level of Function Reported by: Patient (03/06/23926) Ambulation: Ambulatory with device (03/06/23926) Ambulatory Device: Rollator (which pt reports is wearing out and in need of a new rollator) (03/06/23926) Devices at home: Rollator;Other - describe;Wheelchair (oxygen) (03/06/23926) Observations Consciousness: Alert (03/06/23926) Orientation: Person;Place;Situation (Identified roshni and year as September 2002) (03/06/23926) Psychosocial: Patient can communicate basic needs;Patient can converse in a social setting (03/06/23926) Other Findings: Yes (03/06/23926) Findings: Light touch sensation;Coordination;Tone (03/06/23926) Light Touch Sensation Results: Intact;LLE;RLE (03/06/23926) Coordination Results: Intact;LLE;RLE (03/06/23926) Tone Results: Intact;LLE;RLE (03/06/23926) Sitting Posture: Forward head;Rounded shoulders (03/06/23926) Standing Posture: Forward head;Rounded shoulders;Anterior lean (03/06/23926) Pain: Patient has complaints of pain. Pain located R knee during transfers and ambulation. 03/26 Staff Notified Range of Motion Range of Motion: WFL (B LE; see OT for B UE) (03/06/23926) Strength Assessment Strength Assessment: Deficits noted (see OT for B UE) (03/06/23926) WNL, except: LLE;RLE (03/06/23926) LLE: 3-/5;Hip;4-/5;Knee;Ankle (03/06/23926) RLE: Hip;4-/5;Knee;Ankle (03/06/23926) P.T. Bed Mobility Supine-Sit: Maximal Assistance (03/06/23 1026) Transfers Sit-Stand: Moderate Assistance (performed 4 times) (03/06/23 1026) Stand-Sit: Moderate Assistance (performed 4 times) (03/06/23 1026) W/C-Bed/Mat: Maximal Assistance (03/06/23 1026) Ambulation: Distance ambulated (feet): 10 (4 feet once and 3 feet twice) Assistive Device: Rolling walker Assist: Moderate Assistance 1 Unsteady, increased trunk sway, fatigues easily, decreased speed and step length, pt is not safe totransfer or amb w/o assistance. Balance Sit (Static): Good (03/06/23 102) Sit (Dynamic): Fair (03/06/231025) Stand (Static): Poor (poor+ to fair-: mod to min A 1) (03/06/231025) Stand (Dynamic): Poor (03/06/231025) Patient and or Family Goal(s): to get well and to return home Patient Education Review of Precautions: Safety;Fall (no amb or transfers w/o nursing assist) (03/06/231025) Review of Exercises: Pt Demonstrated Exercise;Verbal Exercises Provided (03/06/231025) Safety Awareness: Patient verbalizes insight of current deficits;Patient demonstrates carryover of insight during functional tasks;Patient can communicate basic needs (03/06/231025) Preferred learning method: Combination (03/06/231025) Barriers to learning: Medical Status;Cognition (not fully oriented) (03/06/231025) Method of Education: Verbalized to patient;Patient demonstrated task (03/06/231025) Topic of Education: Safety with mobility, Goals/plan of care, Use of assistive device and Fall prevention and instructed pt and informed pt's nurse and case mgt that at current level of function if discharged home, pt is to use a rollator or rolling walker (except on stairs which are not large enough for all 4 legs of walker to fit on each stair) and have assist of 1 at all times for amb and transfers from a caregiver who can physically assist pt, and at current level of function, pt would needto be transported up steps to enter home via stretcher. Method of Education: Verbal discussion and explanation provided to pt: verbalized understanding andor agreement of this information Treatment Provided: Therapeutic Activities 25 minutes: bed mobility training transfer training toilet transfer training balance training to improve strength, balance, endurance and functional mobility: static sitting EOB w/ CGA to supervision 1, static standing at rolling walker w/ min to mod A 1, amb w/ rolling walker during bed to recliner and recliner <> bsc transfers Therapeutic Exercises: 15 minutes Evaluation Moderate Complexity 19 minutes - [id number]: Patient was cooperative, pleasant, motivated andalert during treatment session. Moderate complexity evaluation performed and 1-2 personal factors or comorbidities were identified that will impact plan of care, including multiple steps at home, obesity, history of COPD, cardiac history and evolving clinical presentation. Patient presents with limitations in strength, bed mobility, transfers, gait, elevations, balance, endurance and safety, which will impact plan of care. These limitations will be addressed by the goals set for this patient. Alarm Status Patient positioned in: Chair (recliner, brakes locked, pure wick secured placed by nursing, O2 3L/min nc, IV secure) (03/06/23 1026) With: Pressure pad alarm intact and functioning and call mendosa in reach (03/06/23 1026) Treatment Status: Treatment at bedside (03/06/23 102) Goals: Demonstrate Bed Mobility with: Supine to Sit: contact guard Sit to supine: contact guard Demonstrate Transfers with: Sit to stand: contact guard Stand to sit: contact guard Bed to chair: contact guard Chair to bed: contact guard Demonstrate Ambulation: assistive device: rolling walker distance in feet: 10 or greater level of assistance on level surface: contact guard Demonstrate Stairclimbing: Number of steps: 3, 1 railing and Level of Assistance: moderate assistance (pt does 50%) Increase Safety: w/ functional mobility Time Frame: 10 sessions Assessment: O2 saturation on 3L/min nc ranged from 94% to 96% and pulse rate ranged from 89 bpm to 112 bpm. Pt presents w/ deficits in strength, balance, endurance and functional mobility and required mod tomax A 1 for transfers and amb w/ rolling walker, AM PAC 12 and is not safe to transfer or amb without assistance. At discharge would consider post acute care services which may include home health, detention, outpatient therapy or in pt rehab. The level of care will be determined in collaboration with the patient, family/caregiver and care team members. Skilled PT at [facility] is warranted to address deficits in strength, endurance, balance and functional mobility and to continue to assess discharge needs. Deficits requiring P.T. treatment needs: Safety;Mobility;Balance;Weakness (03/06/23 0468) Equipment Needs: Equipment needs: Rollator;Hospital bed (pt states that she needs a new rollator) (03/06/23 1026) Treatment Plan: Bed mobility training, Transfer training, Gait training, Elevation training (if tolerated), ROM exercises: B LE, Strengthening exercises: B LE, Balance activities and Educate on safety with functional mobility Anticipated Frequency (on eval): (3-6 times per week) (03/06/23 1026) AM PAC Score with Stairs: 12 * Kristal Rea, OT - 03/05/2023 11:13 AM EDTAssociated Order(s): ADULT OCCUPATIONAL THERAPY CONSULT IP GENERAL EVALUATION - Occupational Therapy [facility]-[address] [id number] Name: Mayra Salvador Location: [facility] [id number] Date: 03/05/2023 Time: 12:22 PM Mayra Salvador is a 72 year old female. Per H&P "This is a 72 yo woman with below pmh that includes dm2, copd c, obesity, on chronic supplemental o2, htn, restless legs, and prior kidney stones. She reports nausea vomiting yesterday and that she fell out of her wheel chair today. She came to ED, where she was shivering and while being worked up for trauma, was found to have edematous left kidney with obstructing kidney stones. Casewas discussed by ED provider with urologist who felt that she didn't need immediate stenting and recommended to admit her on abx and that she could be stented tomorrow. He requested that we contact the office in morning. Patient was hypotensive in ED and after sepsis fluid bolus, was placed on pressors. I discussed case with dr. Salvador from EICU and admission to ICU was felt warranted. Patient denies headache. No diarrhea. She said that she has been making very little urine. ROS: see hpi for pertinent ros; 10 systems reviewed and otherwise negative. " Patient Status: Inpatient Insurance: Payor: [employer] MEDICARE ADVANTAGE Plan: [employer] CHO[employer] PPO Product Type: *No Product type* Payor: [facility] MEDICAID Plan: [facility] Product Type: *No Product type* Patient Seen: at bedside, nursing cleared patient for therapy Patient Identified By: Name, ID Band and Date Diagnosis: weakness, ADL deficits, decreased endurance = (03/05/23 1113) Status of treatment: Evaluation completed (03/05/23 1158) Orders: OT evaluation and treatment (03/05/23 1113) Weight Bearing Status: Weight bearing as tolerated (03/05/23 1113) Precautions: Alarms;Falls;Safety;Oxygen (03/05/23 1113) Total Treatment Time: 45 (03/05/23 1158) Past Medical History: Past Medical History: Diagnosis Date Carotid stenosis, non-symptomatic 11/19/2012 COPD, severe (HCC) 06/23/2011 Depression with anxiety 06/30/2022 DM type 2, goal A1c below 7 Diabetes Type II, Controlled Dyslipidemia 07/26/2009 Per Lipid Taxonomy. Dyslipidemia, goal LDL below 100 07/26/2009 Per Lipid Taxonomy. Dyslipidemia, goal LDL below 160 Hypercholesterolemia Esophageal reflux 11/19/2007 Gastroesophageal reflux disease without esophagitis 11/19/2007 Generalized osteoarthritis HTN, goal below 140/80 04/05/2012 Per HTN Protocol #27. HTN, goal below 140/90 HYPERSOMNI W SLEEP APNEA-nocturnal oxygen 07/22/2004 Lumbago Moderate aortic stenosis 06/11/2021 Nonrheumatic aortic valve stenosis 11/25/2018 OA (osteoarthritis) of knee 07/30/2012 Recurrent major depressive disorder, in full remission (HCC) 06/09/2021 Renal stone 03/29/2012 RLS (restless legs syndrome) 05/18/2013 Senile osteoporosis 06/09/2021 SPINAL STENOSIS-LUMBAR 08/09/2007 Tobacco use disorder 03/22/2004 Past Surgical History: Past Surgical History: Procedure Laterality Date CATARACT SURGERY,COMPLEX 08/28/2009 left eye COLONOSCOPY, DIAGNOSTIC (RECTUM) 06/06/2021 poor prep, repeat / [facility] CYSTOSCOPY 02/22/2014 ull left with stent exchange CYSTOSCOPY/INSERTION OF STENT Left 03/03/2023 CYSTOURETHROSCOPY WITH INSERTION URETERAL STENT performed by Chris Aldridge Jr., MD at OR [facility] CYSTOSCOPY/REMOVE OBJECT, SIMPLE 03/20/2014 EGD, FLEXIBLE, DIAGNOSTIC 06/06/2021 normal bx / [facility] MISCELLANEOUS ORDER ([facility] ONLY) 03/16/2008 Right breast punch biopsy (benign) - Dr. Orozco REMOVAL OF TONSILS, AGE 12+ Tonsils Removal,12+ Y/O Social History/Disposition Lives with: Family (son and daughter) (03/05/23 111) Assistance available: Yes (03/05/231112) Dwelling type: Multi-story home (with first floor setup) (03/05/23 111) Entry steps: 3 (03/05/231112) Inside steps: (19) (03/05/231112) Bedroom location: 1st floor (03/05/23 111) Bath location: 1st floor full bath (03/05/231112) Prior Level of Function Reported by: Patient (03/05/231112) Ambulation: Ambulatory with device (03/05/23 111) Ambulatory Device: Rolling walker (03/05/231112) Grooming: Independent (03/05/231112) Bathing: Independent (03/05/231112) Dressing: Independent (03/05/231112) Feeding: Independent (03/05/231112) Toileting: Independent (03/05/23 1113) Meal Prep: Assistance (03/05/23 111) Homemaking: Assistance (03/05/231112) Shopping: Assistance (03/05/231112) Medication Management: Independent (03/05/233) Money Management: Independent (03/05/231112) Driving: No (03/05/231112) Durable Medical Equipment at home: Rolling walker (03/05/231112) Subjective: Pt without significant comment and agreeable to participate in therapy. Pain: No complaints of pain Observations Consciousness: Alert (03/05/231112) Orientation: Oriented times 4 (03/05/231112) Psychosocial: Patient can communicate basic needs;Patient can converse in a social setting (03/05/231112) Visual Deficits: (glasses) (03/05/231112) Sitting posture: Posterior lean (03/05/231112) Standing posture: Forward head;Rounded shoulders;Anterior lean (03/05/231112) Safety awareness: The Patient verbalizes insight of current deficits.;The Patient demonstrates carryover of insight during functional tasks.;Needs cueing supervision. (03/05/231112) Other Findings Light touch sensation: LUE;RUE;Intact (03/05/231112) Coordination: LUE;RUE;Gross motor;Intact (FMC slow but intact) (03/05/231112) Current Functional Status: Bilateral Upper Extremity Range of Motion: WFL, except (03/05/231112) LUE: Shoulder (03/05/231112) RUE: Shoulder (03/05/231112) Strength Assessment: Deficits noted (03/05/231112) LUE: Shoulder;2/5;Elbow;Wrist;Grasp;3+/5 (03/05/231112) RUE: Shoulder;2/5;Elbow;Wrist;Grasp;3+/5 (03/05/231112) Self Care Able to provide self care: No (03/05/231112) Feeding: Moderate Assistance (per clinical judgement) (03/05/231112) Grooming: Dependent (for wiping face) (03/05/231112) Toileting: Dependent (purewick, dependent for hygiene when toileting) (03/05/231112) Dressing Upper Body: Dependent (for gown) (03/05/231112) Lower Body: Dependent (for socks) (03/05/231112) Bathing Upper Body: Dependent (assist from staff for lifting arms up to wash under arms) (03/05/231112) Lower Body: Dependent (03/05/231112) Functional Ambulation Assistive Device: Rolling walker (03/05/231112) Distance in feet:: 5 (03/05/231112) Level of Assistance: (mod A x 2, dependent (assist x 3 for back to bed)) (03/05/231112) Bed Mobility Supine-Sit: Dependent (03/05/231112) OT Transfers Sit-Stand: Maximal Assistance (x2) (03/05/231112) Stand-Sit: Moderate Assistance (x2) (03/05/231112) Toilet: Moderate Assistance (x2) (03/05/231112) Balance Sit (Static): Fair (03/05/231112) Sit (Dynamic): Fair (03/05/231112) Stand (Static): Poor (03/05/231112) Stand (Dynamic): Poor (03/05/231112) Alarm Status Patient positioned in: Bed (03/05/231112) With: Bed alarm intact and functioning and call mendosa in reach (03/05/231112) Patient and Family Goals: to get well and to return home Patient Education Education Topic: Role of OT;Plan of care goals (03/05/231112) Review of Precautions: Fall;Safety (03/05/231112) Method of Education: Verbalized to patient (03/05/231112) Education Provided to: Patient (03/05/231112) Response to Education: Receptive and agreeable to education (03/05/231112) Barriers to learning: Medical status (03/05/231112) Treatment Provided: Therapeutic Activity: 32 minutes Evaluation Moderate Complexity 13 minutes - 91990: Patient was cooperative and pleasant during treatment session. Moderate complexity evaluation performed and 3-5 activity limitations were identified, including ADL deficit, functional mobility deficit, decreased strength, decreased endurance and impaired balance. Minimal or moderate modification of the functional task was necessary to complete the evaluation. Deficits Requiring O.T. Treatment: Deficits requiring O.T. treatment needs: ADL/self-care;Balance;Endurance;Fine motor coordination;Functional mobility;IADL;Upper extremity strength;Safety;Upper extremity range of motion;Weakness (03/05/231112) Goals: Bathing: Upper: minimal assistance (pt does 75%). Lower: minimal assistance (pt does 75%) Dressing: Upper: minimal assistance (pt does 75%). Lower: minimal assistance (pt does 75%). Transfers with: Sit to Stand: minimal assistance (pt does 75%) Toilet: minimal assistance (pt does 75%) Bed to Chair/Wheelchair: minimal assistance (pt does 75%). Demonstrates ability to tolerate 3/3 meals OOB for 2 consecutive days in a row. Demonstrates Grooming at minimal assistance (pt does 75%). Demonstrates toileting at minimal assistance (pt does 75%) Goal Time Frame: Within 1-10 treatment sessions Assessment: Pt tolerated OT session well. Pt was A&Ox4 and able to answer all prior functional level questions without assist. Pt demonstrated significantly decreased B UE ROM and strength needed for engagement in daily activities. Pt performed supine > sitting EOB with Moderate Assistance x2 for trunk control and shifting B LE off EOB. Pt performed bed > BSC stand pivot transfer using the RW for stability with mod- max A x 2 for initiating sit > stand and for balance/stability during pivot. While seated on BSC, Pt was able to complete upper body bathing with total assist. Pt completed LB bathing with total assist. Pt donned socks and hospital gown with total assist. Pt performed sit > stand using RW for stability with mod -Max A x 2 and required assist x another to complete vicky bathing in stance. Pt performed BSC > bed stand pivot transfer using the RW for stability with Mod- Max A x 2-3 for balance/stability during pivot. Pt required assist x 3 for returning to supine in bed. Pt positioned in bed with call mendosa in reach and bed alarm on. OT AM-PAC: 7 Pt requires assist with feeding, grooming, bathing, dressing and toileting. As such, Would consider post-acute care services which may include home health, detention, outpatient therapy, or inpatient rehab. The level of care will be determined in collaboration with the patient, family/caregiver, and care team members. Skilled OT services warranted here at [facility] to address deficits in ADLs and functional mobility. Treatment Plan: Energy Conservation, Safety, Homemaking Skills, Bed mobility training, Functional Ambulation, Transfer training, Coordination Tasks, ROM exercises, Upper extremity strengthening, Balance activities, ADL training and Endurance Anticipated Frequency (on eval): 1 to 3 times per week (03/05/231112) AM-PAC Help From Another Person Eating Meals: A lot (03/05/231112) Help From Another Person Taking Care of Personal Grooming: Total (03/05/231112) Help From Another Person To Put On/Take Off Upper Body Clothing: Total (03/05/231112) Help From Another Person To Put On/Take Off Lower Body Clothing: Total (03/05/231112) Help From Another Person Toileting: Total (03/05/231112) Help From Another Person Bathing: Total (03/05/231112) OT AM-PAC Score: 7 (03/05/231112) OT AM-PAC t-Scale Score: 20.13 (03/05/23 1113) HLM (Highest Level of Mobility) Goal: Level 4 move to chair/commode (03/05/23 6830) * Carl Adrian MD - 03/03/2023 9:39 AM EDTAssociated Order(s): CRITICAL CARE MEDICINE CONSULT IP Images from the original note were not included. Critical Care Medicine CONSULT [address] [address] Name: Mayra Salvador Location: [facility]/ Date: 03/03/2023 Time: 9:39 AM REQUESTING SERVICE: Dr Britt REASON FOR CONSULT: Septic shock HPI: Mayra Salvador is a 72 yo f, brought to the hospital for evaluation by EMS after falling out of her wheelchair. Noted that she has falling off a wheelchair twice in the past 2 days. Complains of lower back pain and buttock pain which is chronic. Noted that she has had pain or have live and has chronically been on Percocet and baclofen. Has been having nausea with associated vomiting also for about 2 days. Has felt quite weak and recently has been having left-sided abdominal pain. Has a historyof kidney stones. At baseline patient usually wears 3 L of oxygen at night and as needed during theday. She has sleep apnea but was unable to tolerate the mask. She has history of urinary incontinence but denies any dysuria or burning sensation. Had associated fever with chills. At the emergency room on arrival was noted to be shivering. He had imaging studies that showed evidence of left hydronephrosis with obstructing kidney stone. She was hypotensive and was given sepsis fluid and subsequently started on Levophed and transferredto the intensive care unit further evaluation and management. Urology was contacted yesterday and plans to patient today for possible stent placement. Patient was continued on antibiotics. Remains weak and sleepy but arousable. Able to answer simple questions and obey simple commands. Has not been very ambulatory at baseline and mostly uses a wheelchair. Can ambulate minimally with a walker. Lives at home with son PAST MEDICAL HISTORY: Past Medical History: Diagnosis Date Carotid stenosis, non-symptomatic 11/19/2012 COPD, severe (HCC) 06/23/2011 Depression with anxiety 06/30/2022 DM type 2, goal A1c below 7 Diabetes Type II, Controlled Dyslipidemia 07/26/2009 Per Lipid Taxonomy. Dyslipidemia, goal LDL below 100 07/26/2009 Per Lipid Taxonomy. Dyslipidemia, goal LDL below 160 Hypercholesterolemia Esophageal reflux 11/19/2007 Gastroesophageal reflux disease without esophagitis 11/19/2007 Generalized osteoarthritis HTN, goal below 140/80 04/05/2012 Per HTN Protocol #27. HTN, goal below 140/90 HYPERSOMNI W SLEEP APNEA-nocturnal oxygen 07/22/2004 Lumbago Moderate aortic stenosis 06/11/2021 Nonrheumatic aortic valve stenosis 11/25/2018 OA (osteoarthritis) of knee 07/30/2012 Recurrent major depressive disorder, in full remission (HCC) 06/09/2021 Renal stone 03/29/2012 RLS (restless legs syndrome) 05/18/2013 Senile osteoporosis 06/09/2021 SPINAL STENOSIS-LUMBAR 08/09/2007 Tobacco use disorder 03/22/2004 PAST SURGICAL HISTORY: Past Surgical History: Procedure Laterality Date CATARACT SURGERY,COMPLEX 08/28/2009 left eye COLONOSCOPY, DIAGNOSTIC (RECTUM) 06/06/2021 poor prep, repeat / [facility] CYSTOSCOPY 02/22/2014 ull left with stent exchange CYSTOSCOPY/REMOVE OBJECT, SIMPLE 03/20/2014 EGD, FLEXIBLE, DIAGNOSTIC 06/06/2021 normal bx / [facility] MISCELLANEOUS ORDER ([facility] ONLY) 03/16/2008 Right breast punch biopsy (benign) - Dr. Orozco REMOVAL OF TONSILS, AGE 12+ Tonsils Removal,12+ Y/O FAMILY HISTORY: Family History Problem Relation Age of Onset Heart Disorder Brother Colon cancer Brother Heart Disorder Brother Allergies Son nasal allergies Heart Disorder Father Heart Disorder Mother Diabetes Mother Breast Cancer Mother 60s Eye Problems No significant family history denies Fh: AMD, GLAUCOMA, RD'S, BLINDNESS SOCIAL HISTORY: Social History Tobacco Use Smoking status: Former Packs/day: 0.25 Years: 48.00 Pack years: 12.00 Types: Cigarettes Quit date: 05/19/2014 Years since quittin.7 Smokeless tobacco: Never Vaping Use Vaping Use: Never used Substance Use Topics Alcohol use: Yes Comment: rare Drug use: No ALLERGIES: Metformin, Nsaids, Prednisone, Sulfa antibiotics, and Tramadol MEDICATIONS: Current Facility-Administered Medications Medication Dose Route Frequency Provider albuterol-ipratropium (Duoneb) inhalation solution 3 mL 3 mL Nebulizer Q6H PRN Carl Adrian MD dextrose 50 % inj 25 mL 25 mL IV Push PRN Juan Carlos Ackerman PA-C dextrose 50 % inj 50 mL 50 mL IV Push PRN Juan Carlos Ackerman PA-C glucagon (Glucagen) inj 1 mg 1 mg Intramuscular PRN Juan Carlos Ackerman PA-C Glucose (Glutose 15) 40 % gel 15 g of glucose 15 g of glucose Oral PRN Juan Carlos Ackerman PA-C Glucose (Glutose 15) 40 % gel 30 g of glucose 30 g of glucose Oral PRN Juan Carlos Ackerman PA-C glucose chew tab 16 g 16 g Oral PRN Juan Carlos Ackerman PA-C insulin aspart (NovoLOG) inj Subcutaneous Q6H Juan Carlos Ackerman PA-C isolyte-S pH 7.4 infusion Intravenous Continuous Carl Adrian MD NSS 0.9% 1,000 mL bolus infusion 1,000 mL Intravenous Once Cassy Salvador MD rOPINIRole (Requip) tab 3 mg 3 mg Oral QHS Robert Neal, [facility] amitriptyline (Elavil) tab 10 mg 10 mg Oral QHS Juan Carlos Ackerman PA-C aspirin enteric coated tab 81 mg 81 mg Oral Daily(AM) Juan Carlos Ackerman PA-C atorvaSTATin (Lipitor) tab 40 mg 40 mg Oral Daily(AM) Juan Carlos Ackerman PA-C buPROPion (Wellbutrin) tab 75 mg 75 mg Oral BID(AM/PM) Juan Carlos Ackerman PA-C chlorHEXIDINE (Periogard) 0.12 % oral rinse 15 mL 15 mL Oral mucosal membrane BID (0800,2000) Juan Carlos Ackerman PA-C Docusate Sodium (Colace) cap 100 mg 100 mg Oral Daily(AM) Juan Carlos Ackerman PA-C fluticasone furoate-vilanterol (BREO ellipta) 100-25 MCG/ACT inhaler 1 Puff 1 Puff Inhalation Daily(AM) Juan Carlos Ackerman PA-C LORAzepam (Ativan) tab 0.5 mg 0.5 mg Oral Q8H PRN Juan Carlos Ackerman PA-C meclizine (Antivert) tab 12.5 mg 12.5 mg Oral TID PRN Juan Carlos Ackerman PA-C montelukast (Singulair) tab 10 mg 10 mg Oral Daily(AM) Juan Carlos Ackerman PA-C NORepinephrine (Levophed) 4 mg in 250 ml D5W STANDARD CONCENTRATION 16 mcg/ml 0-30 mcg/min Central IV Titrate Santo Devi, Oral Hygiene: Mouth Swab with dentifrice Oral Q4H Limited (00;04;12;16) Juan Carlos Ackerman PA-C pantoprazole (Protonix) tab 40 mg 40 mg Oral BID(AM/PM) Juan Carlos Ackerman PA-C piperacillin-tazobactam (ZOSYN) 4.5 g in D5W 100 mL (FOUR hour infusion) 4.5 g IV Piggyback D2OHkzhpJuan Carlos Ackerman PA-C potassium chloride ER tab 10 mEq 10 mEq Oral BID(AM/PM) Juan Carlos Ackerman PA-C sodium chloride 0.9 % flush peripheral karen 3 mL 3 mL IV Push Q8H Juan Carlos Ackerman PA-C traZODone (Desyrel) tab 50 mg 50 mg Oral HS PRN Juan Carlos Ackerman PA-C umeclidinium [place] (INCRUSE ellipta) 62.5 MCG/ACT inhaler 1 Puff 1 Puff Inhalation Daily(AM) Juan Carlos Ackerman PA-C Prior to Admission Medication: Prior to Admission medications Medication Sig Last Dose Discont. Spiriva HandiHaler 18 MCG Inhalation Capsule (tiotropium bromide) INHALE THE CONTENTS OF 1 CAPSULE EVERY DAY oxyCODONE-Acetaminophen 10-325 MG Oral Tablet (Percocet) Take 1 Tablet by mouth every 6 hours as needed for Severe Pain, Fluticasone-Salmeterol 250-50 MCG/ACT Inhalation Aerosol Powder Breath Activated (Advair Diskus) inhale 1 puff by mouth and INTO THE LUNGS twice a day Potassium Chloride ER 10 MEQ Oral Tablet Extended Release Take 1 Tablet by mouth in the morning and1 Tablet before bedtime. Meclizine HCl 12.5 MG Oral Tablet (Antivert) Take 1 Tablet by mouth 3 times a day as needed for Dizziness. Ondansetron HCl 4 MG Oral Tablet (Zofran) TAKE 2 TABLETS EVERY 8 HOURS NEEDED FOR NAUSEA Alendronate Sodium 70 MG Oral Tablet (Fosamax) 1 tablet weekly Amitriptyline HCl 10 MG Oral Tablet (Elavil) take 1 tablet by mouth at bedtime Atorvastatin Calcium 40 MG Oral Tablet (Lipitor) Take 1 Tablet by mouth in the morning. Baclofen 10 MG Oral Tablet (Lioresal) Take 1 Tablet by mouth in the morning and 1 Tablet before bedtime. buPROPion HCl ER (XL) 150 MG Oral Tablet Extended Release 24 Hour (Wellbutrin XL) Take 1 Tablet by mouth in the morning. Furosemide 20 MG Oral Tablet (Lasix) Take 1 Tablet by mouth in the morning. glipiZIDE ER 5 MG Oral Tablet Extended Release 24 Hour (Glucotrol XL) take 1 tablet by mouth once daily 30 MINUTES BEFORE A MEAL Losartan Potassium 50 MG Oral Tablet (Cozaar) Take 1.5 Tablets by mouth in the morning. Montelukast Sodium 10 MG Oral Tablet (Singulair) Take 1 Tablet by mouth in the morning. Pantoprazole Sodium 40 MG Oral Tablet Delayed Release (Protonix) TAKE 1 TABLET TWICE DAILY 30 MINUTES BEFORE BREAKFAST AND DINNER rOPINIRole HCl 3 MG Oral Tablet TAKE 1 TABLET BY MOUTH AT BEDTIME. 1-3 HOURS BEFORE BEDTIME WITH FOOD FOR RESTLESS LEGS Albuterol Sulfate (2.5 MG/3ML) 0.083% Inhalation Nebulization Solution (Proventil) inhale contents of 1 vial ( 3 milliliters ) in nebulizer by mouth and INTO THE LUNGS every 4 hours if needed Strength: (2.5 MG/3ML) 0.083% Ipratropium-Albuterol 20-100 MCG/ACT Inhalation Aerosol Solution (Combivent Respimat) inhale 1 puffby mouth four times a day Docusate Sodium 100 MG Oral Capsule (Colace) Take one capsule by mouth twice a day as needed for constipation. Vitamin B-12 1000 MCG Oral Tablet Take by mouth 1 Tablet in the morning. LORazepam 0.5 MG Oral Tablet (Ativan) Take by mouth 1 Tablet every 8 hours as needed for Anxiety. Aspirin 81 MG Oral Tablet Delayed Release (Aspirin Low Dose) Take by mouth 1 Tablet in the morning. CVS D3 50 MCG (2000 UT) Oral Capsule (Cholecalciferol) Take by mouth 1 Capsule in the morning. Nitroglycerin 0.4 MG Sublingual Tablet Sublingual (Nitrostat) ONE TAB UNDER TONGUE NEEDED FOR CHEST PAIN MAXIMUM 3 DOSES BD Swab Single Use Regular Pad Use up to 3 times a day as directed Dx: E11.9 traZODone HCl 50 MG Oral Tablet (Desyrel) TAKE 1 TABLET BY MOUTH EVERYDAY AT BEDTIME Patient taking differently: Take 50 mg by mouth at bedtime as needed for Sleep. TAKE 1 TABLET BY MOUTH EVERYDAY AT BEDTIME True Metrix Blood Glucose Test In Vitro Strip (Glucose Blood) Use up to 3 times a day as directed Dx: E11.9 True Metrix Level 1 Low In Vitro Solution Use up to 3 times a day as directed Dx: E11.9 True Metrix Meter w/Device Kit Use up to 3 times a day as directed Dx: E11.9 TRUEplus Lancets 33G Use up to 3 times a day as directed Dx: E11.9 Iron (Ferrous Sulfate) 325 (65 Fe) MG Oral Tablet Take 1 Tab by mouth daily. Incontinence Supply Disposable (COMFORT SHIELD ADULT DIAPERS) MISC Adult large pull ups use 2 dailyand as needed. Elastic Bandages & Supports (KNEE BRACE/HINGED BARS LARGE) MISC Use for right knee instability ROS: Constitutional: no weight loss Eyes: no pain, blurred vision, or redness ENT: no headaches, or throat problems Cardiovascular: no chest pain, no palpitations Pulmonary: As noted above Abdominal/GI: left sided abdominal pain Female : otherwise negative, history of kidney stones Musculoskeletal: chronic pain Endocrine: no heat or cold intolerance, polyuria Hematology/oncology: no easy bruising, no obvious bleeding Skin: no rash or new or changing moles Neurology: no headache, no seizures Psychiatry: no depression or anxiety PHYSICAL EXAMINATION: Most Recent Vital Signs: BP: 112 mmHg/80 mmHg (03/03/23929) Pulse: 93 (03/03/23929) Temp: 37 C (03/03/23729) Resp: 18 (03/03/23929) SpO2: 96 % (03/03/23929) Intake/Output Summary (Last 24 hours) at 03/03/2023 0939 Last data filed at 03/03/2023 0900 Gross per 24 hour Intake 4341.56 ml Output 345 ml Net 3996.56 ml Vent Settings: O2 %: 3 % (03/03/23 0900) PHYSICAL EXAM: Constitutional: no acute distress HEAD: normocephalic, atraumatic; no masses, tenderness, or adenopathy ENT: oral mucosa - slightly moist Eyes: sclera and conjunctiva normal Neck: supple CV: First and second heart sounds, no murmur Chest: normal respiratory effort at rest with nasal cannula in place. Air entry is decreased bilaterally Abdomen: soft, bowel sounds normal, left flank/lumbar tenderness Extremities: no edema Skin: warm, dry: Neuro: Sleepy but arousable. Able to answer simple questions and obey simple commands. Moving extremities. Psych: Sleepy but arousable LABS: 06/12/22 09:02 03/02/23 17:54 03/03/23 06:03 Sodium 141 134 (L) 138 Potassium 4.3 4.6 4.3 Chloride 104 100 106 CO2 27 25 20 (L) BUN 14 32 (H) 38 (H) Creatinine 0.9 2.4 (H) 2.5 (H) Estimated Glomerular Filtration Rate 65 21 (L) 20 (L) Anion Gap 10 9 12 Glucose 95 122 (H) 103 Calcium 9.8 8.7 7.5 (L) Magnesium 2.1 Protein 6.7 6.6 Estimated Average Glucose Lactate, Whole Blood 2.4 (H) 1.7 Lipase 10 (L) 03/02/23 17:54 03/03/23 06:03 WBC 28.63 (H) 29.75 (H) HGB 12.0 10.5 (L) HCT 37.0 33.2 (L) MCV 86.2 87.1 PLT 157 139 (L) Absolute Neutrophils 29.16 (H) Absolute Monocytes 0.60 BLOOD CULTURE PCR IDENTIFICATION-ANAEROBIC Component Ref Range & Units Escherichia coli DNA by PCR Negative PositivePanic Latest Reference Range & Units 03/02/23 18:37 Color, Urine Light Yellow, Yellow, Dark Yellow Yellow Clarity, Urine Clear Cloudy ! Glucose, Urine Negative mg/dL Negative Bilirubin, Urine Negative Small ! Ketone, Urine Negative mg/dL Negative Specific [place], Urine 1.003 - 1.030 1.017 Blood, Urine Negative Large ! pH, Urine 5.0 - 7.5 Units 5.5 Protein, Urine Negative mg/dL >=300 ! Urobilinogen, Urine 0.2, 1.0 mg/dL 1.0 Nitrite, Urine Negative Negative Esterase, Urine Negative Large ! Bacteria, Urine 0 - 25 /HPF >200 ! WBC, Urine 0 - 2 /HPF 50+ ! RBC, Urine SEE REPORT IMAGING: Chest x-ray was reviewed by me on PACs. My interpretation-no acute infiltrate noted. Agreewith the report of the radiologist. CT scan of the abdomen was reviewed by me on PACs. Agree with the report of the radiologist. CT scan of the lumbar spine was reviewed by me on PACs. Agree with the report of the radiologist. Echocardiogram that was done in June 2021 shows normal EF of about 55%, grade 1 diastolic dysfunction, mildly enlarged left atrium. IMPRESSION : Septic shock secondary to E coli Obstructive nephropathy - left ureteric stones Metabolic encephalopathy likely due to sepsis Left hydronephrosis Complicated urinary tract infection Acute renal failure Type 2 diabetes mellitus Chronic pain with chronic opiate use Spinal stenosis - with lumbar degenerative disease Ambulatory dysfunction Gastroesophageal reflux disease without esophagitis Recent recurrent falls RLS (restless legs syndrome) History of hypertension Chronic respiratory failure Obstructive sleep apnea COPD, group C, by GOLD 2017 classification (HCC) Morbid obesity due to excess calories Depression with anxiety SYSTEM BASED PLAN: Central nervous system Poor mental status likely due to a combination of sepsis and medication Will gently restart patient's medication as she improves Pain management Neuro watch Respiratory system Continue oxygen supplementation wean down FiO2 as tolerated Patient actually likely requires oxygen supplementation while sleepy Continue bronchodilators ABG Cardiovascular system Continue pressors as per protocol Continue IV fluid Will gently restart patient's home medication as she improves Gastrointestinal system Reflux precautions Nutrition NPO for procedure Restart patient on diabetic diet when more awake and able to tolerate Endo Blood glucose as per protocol Insulin as per protocol Send TSH level Hematology DVT prophylaxis Musculoskeletal PT/OT from tomorrow Infectious disease Follow final culture results Discontinue vancomycin Transition patient to Rocephin 2 gm Repeat blood cultures in a.m. Renal Continue IV fluids Monitor and supplement electrolytes Ionized calcium level Monitor input and output Skin Stable General Care management evaluation GLOBAL ISSUES: Analgesia: controlled - other Sedation: N/A Delirium/Confusion Assessment Method for ICU (CAM-ICU): CAM-ICU negative HOB Elevation: greater than 30 degress Nutrition: NPO and will restart when more awake DVT Prophylaxis: chemoprophylaxis with pneumatic compression devices Stress Ulcer Prophylaxis: PPI therapy for other indication Glycemic Control: controlled - protocol Central Line Necessity Reviewed: N/A Santamaria: reviewed and needed Disposition: keep in ICU Patient's decisional capacity: has capacity to make decisions Communication with Patient/Family: Brief Family Communication. Date and time of meetin03/03/23 Goals of Care: improve respiratory status, wean respiratory parameters, stabilize hemodynamic status, improve mental status to baseline and decrease pain and discomfort I have provided critical care diagnostic services for circulatory failure, neurologic failure, renal failure, respiratory failure, overwhelming infection and therapeutic services with volume resuscitation, frequent vasoactive agent adjustments, neurological monitoring and treatment, renal replacement therapy assessment, frequent evaluation and titration of therapies for this patient on the date referenced above. Time devoted to patient care services described in this note equal: 65 minutes total critical care time exclusive of time spent performing procedures or time spent by another provideror resident. DISCLAIMER: This dictation was verbally transcribed via Dictation system. Occasional Errors, spelling flaws andomissions are inherent in digital transcriptions. Please contact the undersigned for any clarification/correction in the dictated transcript as needed. * Chris Aldridge Jr., MD - 03/03/2023 9:31 AM EDTAssociated Order(s): UROLOGY CONSULT IP Images from the original note were not included. CONSULT - Urology [facility]-[address] [id number] Name: Mayra Salvador Location: [facility] [id number] Date: 03/03/2023 Time: 9:31 AM REQUESTING SERVICE: medicine PRESENTING PROBLEM: obstructing kidney stones on the left with infection HPI: 72 year old female with past medical history significant for type 2 diabetes COPD chronically on 3 L nasal cannula hyperlipidemia gastroesophageal reflux hypertension aortic stenosis renal stones restless leg syndrome obesity who presented to the emergency room due to nausea vomiting and a fall from her wheelchair. CT scan showed edematous left kidney with obstructing renal stones. Patient noted to be hypotensive in the emergency department despite fluid resuscitation with 3 L normal saline and was started on Levophed. Patient admitted to the ICU for further monitoring. Color, Urine Light Yellow, Yellow, Dark Yellow Yellow Clarity, Urine Clear CloudyAbnormal Glucose, Urine Negative mg/dL Negative Bilirubin, Urine Negative SmallAbnormal Ketone, Urine Negative mg/dL Negative Specific [place], Urine 1.003 - 1.030 1.017 Blood, Urine Negative LargeAbnormal pH, Urine 5.0 - 7.5 Units 5.5 Protein, Urine Negative mg/dL >=300Abnormal Urobilinogen, Urine 0.2, 1.0 mg/dL 1.0 Nitrite, Urine Negative Negative Esterase, Urine Negative LargeAbnormal WBC 4.00 - 10.80 K/uL 29.75High RBC 3.85 - 5.15 M/uL 3.81 HGB 12.0 - 15.3 g/dL 10.5Low HCT 36.0 - 45.2 % 33.2Low MCV 81.5 - 97.5 fL 87.1 MCH 27.0 - 34.0 pg 27.6 MCHC 32.0 - 36.0 g/dL 31.6 RDW 11.5 - 15.5 % 15.3 PLT 140 - 400 K/uL 139Low MPV 6.6 - 11.1 fL 13.2 nRBCs <=0 /100 WBCs 0 Resulting Agency BUN 6 - 20 mg/dL 38High Creatinine 0.5 - 1.0 mg/dL 2.5High Estimated Glomerular Filtration Rate >=60 mL/min 20Low Comment: eGFR is calculated based on the CKD-EPI 2020 equation Sodium 135 - 146 mmol/L 138 Potassium 3.5 - 5.1 mmol/L 4.3 Chloride 98 - 107 mmol/L 106 CO2 22 - 32 mmol/L 20Low Anion Gap 7 - 15 mmol/L 12 Glucose 70 - 120 mg/dL 103 Calcium 8.4 - 10.2 mg/dL 7.5Low CT IMPRESSION: 1. Edematous appearance of the left kidney with mild prominence of the left renal collecting system secondary to 2 obstructing calculi in the left renal pelvis measuring up to 1.1 and 0.7 cm respectively PAST MEDICAL HISTORY: Past Medical History: Diagnosis Date Carotid stenosis, non-symptomatic 11/19/2012 COPD, severe (HCC) 06/23/2011 Depression with anxiety 06/30/2022 DM type 2, goal A1c below 7 Diabetes Type II, Controlled Dyslipidemia 07/26/2009 Per Lipid Taxonomy. Dyslipidemia, goal LDL below 100 07/26/2009 Per Lipid Taxonomy. Dyslipidemia, goal LDL below 160 Hypercholesterolemia Esophageal reflux 11/19/2007 Gastroesophageal reflux disease without esophagitis 11/19/2007 Generalized osteoarthritis HTN, goal below 140/80 04/05/2012 Per HTN Protocol #27. HTN, goal below 140/90 HYPERSOMNI W SLEEP APNEA-nocturnal oxygen 07/22/2004 Lumbago Moderate aortic stenosis 06/11/2021 Nonrheumatic aortic valve stenosis 11/25/2018 OA (osteoarthritis) of knee 07/30/2012 Recurrent major depressive disorder, in full remission (HCC) 06/09/2021 Renal stone 03/29/2012 RLS (restless legs syndrome) 05/18/2013 Senile osteoporosis 06/09/2021 SPINAL STENOSIS-LUMBAR 08/09/2007 Tobacco use disorder 03/22/2004 PAST SURGICAL HISTORY: Past Surgical History: Procedure Laterality Date CATARACT SURGERY,COMPLEX 08/28/2009 left eye COLONOSCOPY, DIAGNOSTIC (RECTUM) 06/06/2021 poor prep, repeat / [facility] CYSTOSCOPY 02/22/2014 ull left with stent exchange CYSTOSCOPY/REMOVE OBJECT, SIMPLE 03/20/2014 EGD, FLEXIBLE, DIAGNOSTIC 06/06/2021 normal bx / [facility] MISCELLANEOUS ORDER ([facility] ONLY) 03/16/2008 Right breast punch biopsy (benign) - Dr. Orozco REMOVAL OF TONSILS, AGE 12+ Tonsils Removal,12+ Y/O FAMILY HISTORY: Family History Problem Relation Age of Onset Heart Disorder Brother Colon cancer Brother Heart Disorder Brother Allergies Son nasal allergies Heart Disorder Father Heart Disorder Mother Diabetes Mother Breast Cancer Mother 60s Eye Problems No significant family history denies Fh: AMD, GLAUCOMA, RD'S, BLINDNESS SOCIAL HISTORY: Social History Tobacco Use Smoking status: Former Packs/day: 0.25 Years: 48.00 Pack years: 12.00 Types: Cigarettes Quit date: 05/19/2014 Years since quittin.7 Smokeless tobacco: Never Vaping Use Vaping Use: Never used Substance Use Topics Alcohol use: Yes Comment: rare Drug use: No ALLERGIES: Metformin, Nsaids, Prednisone, Sulfa antibiotics, and Tramadol REVIEW OF SYSTEMS: per H&P PHYSICAL EXAMINATION: Most Recent Vital Signs: BP: 92 mmHg/76 mmHg (03/03/23 0630) Pulse: 100 (03/03/23 0743) Temp: 37 C (03/03/23729) Resp: 24 (03/03/23 0630) SpO2: 96 % (03/03/23 0743) General: alert, awake, oriented to person and place and situation Heart: regular rate, regular rhythm, no murmur Chest: clear to auscultation bilaterally Abdomen: soft, non-tender, non-distended Back: left costo-vertebral angle tenderness Extremities: moderate edema bilateral lower extremities : normal LAB LINKS:Labs reviewed as indicated below: reviewed CULTURES: pending IMAGING: noted IMPRESSION: 72 year old female for likely urosepsis secondary to obstructing left renal stones. She has a high risk obstructing stone likely with UTI. PLAN: We recommend urgent cystoscopy with placement of temporary stent to relieve the obstruction and allow treatment of the infection. We will do definitive stone treatment at a later date. The general information alternatives and risks of this procedure were explained and understood in detail. Patient seen by Dr. Aldridge. * Tameka Garza [facility] - 03/03/2023 3:53 AM EDT PHARMACY PHARMACOKINETIC CONSULT [address] [address] Name: Mayra Salvador Location: [facility] [id number] Date: 03/03/2023 Time: 3:55 AM Requesting service: Critical Care Medicine Bacteria being treated: Empiric Source of infection: Sepsis Medication(s) being managed: Vancomycin Pharmacokinetic calculations will be performed utilizing Zwittle software. Lab information: Lab Results Component Value Date/Time WBC 28.63 (H) 03/02/2023 05:54 PM WBC 6.93 03/08/2021 03:02 PM WBC 7.94 11/07/2020 04:12 PM WBC 8.68 07/09/2020 03:09 PM WBC 7.66 03/07/2020 02:30 PM WBC 8.92 10/18/2019 01:39 PM WBC 8.22 06/14/2019 10:57 AM WBC 9.12 07/14/2018 03:34 PM WBC 12.6 (H) 10/13/1996 03:40 PM Lab Results Component Value Date/Time BUN 32 (H) 03/02/2023 05:54 PM BUN 14 06/12/2022 09:02 AM BUN 14 03/08/2021 03:02 PM BUN 11 11/07/2020 04:12 PM BUN 12 06/21/2020 03:28 PM BUN 15 11/03/2019 09:57 AM BUN 18 10/18/2019 01:39 PM BUN 10 06/14/2019 10:57 AM BUN 17 01/31/2019 01:48 PM BUN 8 (L) 10/13/1996 03:40 PM Lab Results Component Value Date/Time CREAT 2.4 (H) 03/02/2023 05:54 PM CREAT 0.9 06/12/2022 09:02 AM CREAT 0.9 03/08/2021 03:02 PM CREAT 0.9 11/07/2020 04:12 PM CREAT 0.9 06/21/2020 03:28 PM CREAT 0.8 11/03/2019 09:57 AM CREAT 0.9 10/18/2019 01:39 PM CREAT 0.8 06/14/2019 10:57 AM CREAT 0.9 01/31/2019 01:48 PM CREAT 0.6 (L) 10/13/1996 03:40 PM ANTIMICROBIALS GIVEN (last 28 hours) Date/Time Action Medication Dose Rate 03/03/23 0323 New Bag vancomycin (Vancocin) 2500 mg in NSS 500 mL ivpb 2,500 mg 220 mL/hr 03/02/23 2353 New Bag piperacillin-tazobactam in D5W (Zosyn) (HALF hour infusion) ivpb 4.5 g 4.5 g 200 mL/hr 03/02/23 1936 New Bag cefTRIAXone in dextrose (Rocephin) IVPB 1 g 1 g 100 mL/hr Wt Readings from Last 1 Encounters: 03/02/23 102.1 kg (225 lb) Levels to date: No results found for: VANCO, VANCOPEAK, VANCORANDOM, VANCOTROUGH, GENTPEAK, GENTRANDOM, GENTTROUGH,TOBRAPEAK, TOBRARANDOM, TOBRATROUGH, AMIKAPEAK, AMIKARANDOM, AMIKATROUGH Impression: Mayra Salvador is a/an 72 year old female receiving vancomycin therapy. The pharmacokinetic target for therapy is AUC24,SS (range) 400-600mg/L.hr Assessment and Plan: Analysis using [employer] gives the following patient-specific pharmacokinetic parameters: CL: 1.64 L/hr V: 85.2 L T1/2: 37 hours At this time we recommend a regimen of 750 mg IV every 24 hours, which is predicted to result in a steady-state trough of 16 mg/L and AUC24 of 460 mg/L.hr. Recommendations: - Vancomycin 750 mg IV every 24 hours - Obtain Vancomycin peak level on 03/04 at 0600 and random level on 03/05 at 0600 - Continue to monitor serum creatinine Pharmacy will continue to follow and dose as appropriate by renal function, culture results, infectious disease input, and overall clinical status. Contact the Pharmacy at extension [phone] if there are any questions. Tameka Garza RPh documented in this encounter Nursing Notes * Hillary Schumacher RN - 03/09/2023 2:33 PM EDT Report called to Nigel Spaulding [facility] at this time. * Hillary Schumacher RN - 03/09/2023 10:19 AM EDT 0953 - Pt resting in bed, assessment completed at this time. Pt denies pain or SOB. RUE forearm noted to be slightly red and warm to touch, doppler completed this AM. Area noted to be decreased in size from markings on previous shift, pt also states area has improved. AM meds administered by SN andinstructor w/o any difficulty. Pt has no current complaints, call mendosa is within reach. Will continue to monitor. 1000 - Pt refusing Lovenox injection for SN, stating she does not want to bleed anymore from injection sites. Pt educated on importance of injection while in the hospital. Provider aware. * SN Shae - 03/09/2023 8:11 AM EDT See the Licensed Professional's note for clinical information and recommendations. The signature ofthe Licensed Professional on this note acknowledges only the presence of the student's note within the patient record. By regulation, students' notes are for training and educational purposes only and play no part in the documentation of care or clinical treatment of patients. 0800: VS obtained by FRENCH PROFESSOR and reviewed, head to toe assessment completed see flowhseet for details, pt denies pain. 0900:administered morning medications, pt tolerated well. Refusing lovenox injection stats she doesn't want to bleed anymore, MELISSA Thornton aware PT working with pt at this time 0945: pt repositioned in bed 1030: FRENCH PROFESSOR assisted pt with hygiene, pt repositioned in bed for comfort 1130: discharge orders in, copper plater removed 1300: IV removed 1400: reported off to MELISSA Thornton. * Aubrie Washington LPN - 03/08/2023 11:28 PM EDT 2300: Report received from Carmella LOO and care assumed. Patient resting comfortably in bed at this time. Immediate needs met, call mendosa within reach and use reinforced. 0317: Patient medicated with PRN oxycodone for 8/10 leg pain. See MAR for details. Patient took whole with water without difficulty, immediate needs met, call mendosa within reach and use reinforced. 0620: Patient did well throughout the night. Needs met throughout the shift. Call mendosa within reach, use reinforced. * Elvira Turner LPN - 03/08/2023 7:57 PM EDT 1930-Assessment complete. Incontinent of large amount of urine that leaked around Purewick. Cleaned, changed and repositioned to right side. Right arm slightly red with marking from previous shift. Redness has not extended. Elevated. 2229-Checked patient for incontinence. Dry. Repositioned to back and up in bed. Noted bleeding fromsubq sites on right and left abdomen post anticoagulation injections. Cleaned and reapplied pressure dressing to each site. Bleeding has stopped. * Michelle Mireles LPN - 03/08/2023 12:39 PM EDT 07: Report received from Carmella LOO. Care assumed at this time. 899: Assessment completed, see flow sheets for details. A/ox4. Trace edema to lower extremities. Nasal cannula in place, tolerating. Purewick in place, suctioning at 80. All care needs addressed andcall mendosa within reach. 919: Medication administered per orders. IV site checked, found to be infiltrated, red and tender.paint roller assembler made aware of site. [place] Text sent to IV team for new IV site and provider for possibility of cellulitis. Outlined with skin marker of redness and swelling. Ice pack in place to relieve pain. 1118: Patient largely incontinent of urine. Bed bath and full bed change performed. 1823: PRN medication for 10/10 pain in legs. See Mar for details. * Elvira Turner LPN - 03/07/2023 8:53 PM EDT 1944-Assessment complete. Repositioned from left side to back per patient request. She is able to turn self some. Denies pain or shortness of breath. Requesting snack which was provided. 2345-Purewick leaking. Cleaned, changed and repositioned to right side. 0335-Purewick leaking for a large amount of urine.Purewick changed. Cleaned, changed and repositioned to left side. * Elvira Turner LPN - 03/06/2023 8:49 PM EDT 2039-Assessment complete. Denies shortness of breath. C/o generalized pain and requesting pain med.Oxy IR given. States she had a sub that her granddaughter brought her and she wants her diet to changed to eat regular food. She states she will bring this up to the provider tomorrow. 2109-Patient briefly flipped to afib and is back in sinus rhythm. 324-endo tech said patient was in 130's. Awakened patient and she said she was dreaming and came down in the 80's. Repositioned to right side. 624-Medicated with Oxy for c/o headache. Repositioned up in bed. Purewick changed. * Michelle Mireles LPN - 03/06/2023 5:39 PM EDT 1500: Report received from Johnson LOO. Care assumed at this time. 1740: Patient yelling at this nurse and FRENCH PROFESSOR about diet order and saying she is going to walk out ofhospital if she is not given solid food. Tried to educate patient that if she does not have dentures she will be unable to chew meat/food and could possibly choke, patient continued to yell at this nurse. * Aubrie Washington LPN - 03/06/2023 10:31 AM EDT 05: Report received from Adriana TORRES and care assumed. Patient resting in bed. Patient repositioned. Call mendosa within reach and use reinforced. 913: Shift assessment completed, patient A&O x 3 d/o to time. Calm cooperative and pleasant with care. Denies pain or dyspnea at this time. See flow sheets for complete details. Immediate needs met, call mendosa within reach and use reinforced. * SN Adarsh - 03/06/2023 9:53 AM EDT See the Licensed Professional's note for clinical information and recommendations. The signature ofthe Licensed Professional on this note acknowledges only the presence of the student's note within the patient record. By regulation, students' notes are for training and educational purposes only and play no part in the documentation of care or clinical treatment of patients. 0800: Arrived to patient bedside to find her lying in bed semi-fowlers awake, answering questions appropriately except for time and able to follow commands. Patient didn't appear to be in any acute distress. Patient pleasant, cooperative but anxious to be discharged. Patient denied any pain, shortness of breath, nausea, dizziness or any other complaints. Patient's only complaint/concern is when is she being sent home? Head to toe assessment performed showing no new findings or concerns since previous shift's assessment as documented. Patient repositioned onto her right side with the use od wedges. Purewick still in place draining urine. Patient left with bed in lowest positions, three railsup, call mendosa within reach and without requests. 0900: Patient assisted with prep of breakfast and repositioned to high fowlers in bed to eat. Patient given her morning meds. Left patient eating her breakfast and without any other complaint or request. 1100: Patient lightly sleeping in chair. Call mendosa within reach. 1200: Patient found lightly sleeping in chair who easily awakens. Call mendosa within reach. 1300: Patient found lightly sleeping in chair who easily awakens. Call mendosa within reach. 1400: Care and report handed off to Rachna LOO. * Eduarda Reyes RN - 03/05/2023 9:43 PM EDT 2109 Pt awake and cooperative with assessment, see flowsheets for complete details. Denied pain. Recent VS stable. AO x 3, disoriented to time. Drowsy. +4 BUE and BLE moderate strengths. HR irregularwith +1 edema in R knee. Abd rounded, tender. Stated it is normal for her to only have 1 BM a month, but denied constipation. Stated that she thinks her last BM was a few days before the fall. Ordersfor stool softeners already placed. NC on at [address] Call mendosa in reach. * Lidia Pavon LPN - 03/05/2023 6:13 PM EDT Dual Licensed Skin Assessment completed by Lidia Cain LPN and Hillary Schumacher RN. The patient is/has a N/A Skin Breakdown (includes non blanchable erythema): No * Lidia Pavon LPN - 03/05/2023 5:50 PM EDT IN-HOUSE TRANSFER RECEIVING UNIT - NURSING [address] [address] Name: Mayra Salvador Location: [address] Date: 03/05/2023 Time: 5:50 PM Patient received to room [facility] at 1600 Vital Signs: BP: 103 mmHg/60 mmHg (03/05/23 1601) Pulse: 83 (03/05/23 1601) Temp: 36.72 C (03/05/23 1601) Resp: 14 (03/05/23 1601) SpO2: 100 % (03/05/23 160) Pertinent transfer information upon arrival: O2 3L NC, female external catheter Belongings received with patient: cell phone, cell phone sales development coordinator, clothing/shoes, wallet/purse and overnight bag Verbal SBAR report received from: Pau Ferrari RN * Pau Ferrari RN - 03/05/2023 3:19 PM EDT IN-HOUSE TRANSFER - Nursing [address] [address] Name: Mayra Salvador Location: [id number]/W Date: 03/05/2023 Time: 3:19 PM Transferring from nursing unit: ICU MOST RECENT VITALS: BP: 97 mmHg/74 mmHg (03/05/23 1000) Pulse: 79 (03/05/23 1000) Temp: 36.22 C (03/05/23 1145) Resp: 14 (03/05/23 1000) SpO2: 97 % (03/05/23 1000) TRANSFER DETAILS: From room 4109 to the 4B unit, room 4007. Means of transfer: Bed Mental Status: moves all extremities, AOx3 Family and/or significant other notified of transfer: yes Isolation: no IV's: saline lock Drains present on transfer: other external female catheter Tubes present on transfer: Nasal O2 @ 3 L NC L per minute Dressing assessment: None Integumentary breakdown: No Equipment present on transfer: Sequential Compression Device Other: NA CODE LEVEL: Full PERSONAL BELONGINGS: Patient's personal belongings sent with patient: yes Documented on Belongings Form and form sent with the patient: N/A Purse, overnight bag, clothing, cell phone and sales development coordinator Nursing patient assessment on transfer: See flow sheets * Pau Ferrari RN - 03/05/2023 3:15 PM EDT 0730- Assessment as noted- see flow sheets 1100- IDR completed- lab results, IVF, fluid balance reviewed- 1510- Report given to 4B RN * Eduarda Hannah RN - 03/04/2023 10:24 PM EDT 2215-Patient becoming very agitated and restless. Pulling off BP cuff, pulse ox and IV. Arleen KAUR made aware. * Melanie Chen RN - 03/03/2023 12:51 AM EDT Dual Licensed Skin Assessment completed by Amanda Chen RN and Lamberto Barber RN. The patient is/has a N/A Skin Breakdown (includes non blanchable erythema): No. Skin intact * Melanie Chen RN - 03/03/2023 12:48 AM EDT IN-HOUSE TRANSFER RECEIVING UNIT - NURSING [address] [address] Name: Mayra Salvador Location: [place] [id number] Date: 03/03/2023 Time: 12:48 AM Patient received to room [facility] at 0030 Vital Signs: BP: 117 mmHg/76 mmHg (03/03/23 0000) Pulse: 118 (03/03/23 0000) Temp: 36.94 C (03/02/239) Resp: 22 (03/03/23 0000) SpO2: 91 % (03/02/232029) Pertinent transfer information upon arrival: Received via stretcher. Disoriented to time. Febrile, 38.4. Lethargic. Tachycardic, 120s. Levo@5 infusing Belongings received with patient: clothing/shoes and wallet/purse Verbal SBAR report received from: Cristy TORRES documented in this encounter OR Notes * OR Surgeon - Chris Aldridge Jr., MD - 03/03/2023 10:39 AM EDT OPERATIVE RECORD [address] [place] [address] MAYRA SALVADOR MR #[id number] : 1950 Location: [facility] SERVICE: UROLOGY DATE: 03/03/2023 PRE-OP DIAGNOSIS: Urosepsis with obstructing left renal stones. POST-OP DIAGNOSIS: Same. SURGEON: Chris Aldridge Jr, MD. ASSISTANTS: None. ANESTHESIA: General LMA. OPERATION: Cystoscopy with placement of temporary indwelling double-J stent on the left. FINDINGS: Evidence of both cystitis and probable pyelonephritis in the left kidney, but with minimal obstruction and stones noted in the collecting system. ESTIMATED BLOOD LOSS: 0 mL. DRAINS: Left stent 6-Iranian 26 cm and urinary Santamaria catheter 16-Iranian. FLUIDS: IV fluids: 300. URINE OUTPUT: Not available. SPECIMEN: Urine culture from left kidney. COMPLICATIONS: None . CONDITION: Critical. DISPOSITION: Postanesthesia care. ATTESTATION: I performed the procedure. INDICATIONS AND HISTORY: This is a woman who presented with sudden left flank pain, high-grade fever, chills, evidence of urosepsis with a known history of diabetes and kidney stones in the past. Shewas found to have some infectious changes and mild obstruction in the left kidney, flank pain on the left side, elevated white count, and evidence of infected urine with kidney stones for likely urosepsis with intermittent obstruction. The plan was to do an emergent cystoscopy and stent placement. The general information, alternatives, and risks were explained in detail. DESCRIPTION OF OPERATION: The patient was identified, and the procedure verified. She was taken to the operating room and identified and surgical time-out was taken. Her left hand had been marked We reviewed her films. She had been receiving IV antibiotics during the procedure andshe had SCDs and all the appropriate equipment personnel were available. She was put under general LMA anesthesia and put in lithotomy position prepped, draped, and secured in standard sterile fashion. Pressure points were well padded. We began by doing a cystoscopy. She did have cloudy urine in the bladder. It looked like some active cystitis. The left ureteral orifice was identified and cannulated. We were able to find some dilation in the proximal ureter, little bit and some slight dilation in the collecting system. There were some filling defects up there. I obtained urine samples from the kidney. It looks like it had been intermittently obstructing and probably infected, so we put the stent in good position. I was able to get the curl of the upper part of the stent in the upper pole bypassing the stones in the pelvis and in good position in the bladder. We are going to leave that stent. We replaced the Santamaria. We will be treating her UTI with appropriate antibiotics based upon culture reports as they arrive and will likely do a definitive stone procedure on the left side probably ureteroscopy or lithotripsy in the future once the infection resolves. MD DASH Toscano Jr/MARVA: Doc#: [id number] * Operative Report Brief - Chris Aldridge Jr., MD - 03/03/2023 10:08 AM EDT [facility] [address] OPERATIVE REPORT - BRIEF Name: Mayra Salvador Date: 03/03/2023 Time: 10:08 AM Location: [facility] Service: Urology Date of Operation: 03/03/2023 Pre-op Diagnosis: Urosepsis and left obstructing renal stones Post-op Diagnosis: same Operation: Cystoscopy with left stent placement Surgeon: Chris Aldridge Jr., MD Assistants: None Anesthesia: General LMA anesthesia Drains: Left stent, Urinary Catheter (Santamaria) Estimated Blood Loss: 0 ml. IV Fluids: 300 ml. Urine Output: N/A Specimens/Disposition: Urine from left kidney Apparent Intraoperative Complications: NONE Patient Condition: critical Disposition: Post Anesthesia Care Unit Attestation: I performed the procedure Dictation # [id number] documented in this encounter ED Notes * Santo Devi, - 03/02/2023 5:59 PM EDT HISTORY OF PRESENT ILLNESS Mayra Salvador is a 72 year old female who presents to the ED for evaluation of Fall. The patient wasseen at 03/02/23 1715. 72-year-old female who presents with fall from wheelchair. Patient states that she is been feeling weak over the past 2 days. Patient notes yesterday she attempted to walk and fell with no injuries. Patient states today she was in her wheelchair when she slid out the front ofit landed on her buttocks. Patient notes she is been having severe pain in which prompted ED evaluation. On patient found to have fever. Patient then began to complain abdominal pain. Patient took nomedication prior to arrival included Tylenol. Patient denies nausea, vomiting, diarrhea. Patient does note she is incontinent of urine. Review of Systems Constitutional: Positive for fatigue and fever. Negative for chills. HENT: Negative for congestion and sore throat. Respiratory: Negative for cough and shortness of breath. Cardiovascular: Negative for chest pain and palpitations. Gastrointestinal: Positive for abdominal pain. Negative for diarrhea, nausea and vomiting. Genitourinary: Positive for frequency. Negative for dysuria and hematuria. Musculoskeletal: Positive for back pain and gait problem. Skin: Negative for color change, rash and wound. Neurological: Negative for dizziness and headaches. All other systems reviewed and are negative. The patient's allergies, past history, and medications were reviewed. PHYSICAL EXAM Initial Vitals (see all): BP 98/61 | Pulse 122 | Resp 19 | Temp 101.3 | O2 91 %, Nasal Cannula | Weight 105.5 kg | Height 157.5 cm | BMI 42.54 kg/m2 Initial Pain Assessment (see all): 6 (severe pain)/101/10, Stabbing, location: lower back ([facility] Adult Scale 0-10) Physical Exam Vitals and nursing note reviewed. Constitutional: General: She is in acute distress. Appearance: Normal appearance. She is obese. She is ill-appearing. HENT: Head: Normocephalic and atraumatic. Nose: Nose normal. Mouth/Throat: Mouth: Mucous membranes are moist. Pharynx: Oropharynx is clear. Eyes: Pupils: Pupils are equal, round, and reactive to light. Cardiovascular: Rate and Rhythm: Regular rhythm. Tachycardia present. Pulmonary: Effort: Pulmonary effort is normal. No respiratory distress. Breath sounds: Normal breath sounds. No wheezing or rales. Abdominal: General: Abdomen is flat. Bowel sounds are normal. There is no distension. Palpations: Abdomen is soft. Tenderness: There is abdominal tenderness. There is right CVA tenderness and left CVA tenderness. There is no guarding. Comments: RUQ and periumbilical abdominal pain Musculoskeletal: Comments: Midline lumbar tenderness Skin: General: Skin is warm and dry. Capillary Refill: Capillary refill takes less than 2 seconds. Neurological: General: No focal deficit present. Mental Status: She is alert and oriented to person, place, and time. Psychiatric: Mood and Affect: Mood normal. PROCEDURES AND TREATMENTS ED Orders | ED Results MEDICAL DECISION MAKING Nursing notes and vital signs were reviewed. ED consults were placed. Differential Diagnoses Based on my history, physical exam, and evaluation, the differential includes, but is not limited, to the following diagnoses: Obstructive hydronephrosis, compression fracture, UTI, cholecystitis, sepsis. 72-year-old female who presents with fall from standing. On arrival patient found to be febrile, tachycardic and hypotensive. Urine appears infected. Patient treated with 2.5 L of normal saline fluidresuscitation. Patient still with mean arterial pressure below 65. Decision was made to place patient on peripheral pressor with Levophed. CT scan findings of multiple obstructing renal stones with perinephric stranding concerning for pyelonephritis. Consultation with Urology who recommended makingpatient NPO for plan stenting tomorrow. Patient given IV broad-spectrum antibiotics. Consultation with hospitalist discussion of plan. Decision was made to admit patient to intensive care unit Septic shock (HCC): acute illness or injury that poses a threat to life or bodily functions Amount and/or Complexity of Data Reviewed Labs: ordered. Details: Mildly elevated lactic acid, significant leukocytosis, acute kidney injury Radiology: ordered and independent interpretation performed. Details: CT reviewed, agree with Radiology interpretation Risk OTC drugs. Prescription drug management. Decision regarding hospitalization. Minor surgery with identified risk factors. Clinical Impressions Septic shock (HCC) Disposition Admitted. I discussed the management of this patient with the admitting provider and I made a decision to admit the patient. Admission Order Ordered Status . 03/02/23 2346 Admit for Inpatient Services (incl ZPO) ONCE Completed Santo Devi ATTENDING ATTESTATION Critical Care Time: I personally provided 35 minutes of critical care for this patient. Critical care time was exclusive of separately billable procedures, treating other patients, and teaching. The patient had a high probability of sudden, clinically significant, life-threatening deterioration. Critical care was necessary to treat the following conditions: septic shock. Critical care was time spent personally by on the following activities: administration of IV vasoactive meds, evaluation of patient's responseto treatment and development of treatment plan. Santo Devi DO * Kaur Silva RN - 03/02/2023 5:18 PM EDT Pt arrives via [facility] after falling out of wheelchair. Pt has lower back pain. HR: 121. BP: 113/71. BSBS 127. 20g LAC. documented in this encounter Miscellaneous Notes * Ancillary Progress Note - EARLE Palomo - 03/09/2023 2:28 PM EDT PROGRESS NOTE - Occupational Therapy [facility] [address] Name: Mayra Salvador Location: [address] Date: 03/09/2023 Time: 2:44 PM Mayra Salvador is a 72 year old female. Patient Status: Inpatient Insurance: Payor: [employer] MEDICARE ADVANTAGE Plan: [employer] PPO Product Type: *No Product type* Payor: [facility] MEDICAID Plan: [facility] Product Type: *No Product type* Patient Seen: at bedside, nursing cleared patient for therapy Patient Identified By: Name, ID Band and Date Diagnosis: weakness, ADL deficits, decreased endurance = (03/09/231427) Status of treatment: Treatment completed (03/09/231427) Orders: OT evaluation and treatment (03/09/231427) Weight Bearing Status: Weight bearing as tolerated (03/09/231427) Precautions: Alarms;Falls;Safety;Oxygen (2.5L O2 via NC) (03/09/231427) Total Treatment Time: 29 (03/09/231427) Subjective: "They told me 7 to 10 days and I would be out of rehab. They think that's all the more I will need to learn to walk again. I hope so. 17 days and I will finally be able to go home." Pain: No complaints of pain Observations Consciousness: Alert (03/09/231427) Orientation: Oriented times 4 (03/09/231427) Cognitive Limitations: Impulsivity (03/09/231427) Psychosocial: Patient can communicate basic needs;Patient can converse in a social setting (03/09/231427) Visual Deficits: (glasses) (03/05/23 1113) Sitting posture: Forward head;Rounded shoulders (03/09/238) Standing posture: Forward head;Rounded shoulders (03/09/231427) Safety awareness: The Patient verbalizes insight of current deficits.;The Patient demonstrates carryover of insight during functional tasks.;Needs cueing supervision. (03/09/231427) Other Findings Light touch sensation: LUE;RUE;Intact (03/05/23 111) Coordination: LUE;RUE;Gross motor;Intact (FMC slow but intact) (03/05/23 111) Current Functional Status: Activities of Daily Living: Self Care Able to provide self care: Yes (03/06/231138) Feeding: Independent (per clinical judgement) (03/06/231138) Grooming: (setup while seated) (03/09/231427) Toileting: Moderate Assistance (03/09/231427) Dressing Upper Body: Minimal Assistance (03/09/231427) Lower Body: Maximal Assistance (03/09/231427) Bathing Upper Body: Dependent (assist from staff for lifting arms up to wash under arms) (03/05/23 111) Lower Body: Dependent (03/05/231112) Functional Ambulation Assistive Device: Rolling walker (03/09/231427) Distance in feet:: 6 (2ft x1, 4ft x1) (03/09/231427) Level of Assistance: Minimal Assistance (03/09/231427) Bed Mobility Supine-Sit: Moderate Assistance (03/09/231427) OT Transfers Sit-Stand: Moderate Assistance (to min) (03/09/231427) Stand-Sit: Minimal Assistance (03/09/231427) Toilet: Minimal Assistance (BSC) (03/09/231427) Balance Sit (Static): Good (03/06/231138) Sit (Dynamic): Good (03/06/231138) Stand (Static): Fair (03/06/231138) Stand (Dynamic): Fair (03/06/231138) Patient Education Education Topic: Role of OT;Plan of care goals (03/06/231138) Review of Precautions: Fall;Safety (03/06/231138) Method of Education: Verbalized to patient (03/06/231138) Education Provided to: Patient (03/06/231138) Response to Education: Receptive and agreeable to education (03/06/231138) Barriers to learning: Medical status (03/06/231138) Alarm Status Patient positioned in: Chair (03/09/231427) With: Pressure pad alarm intact and functioning and call mendosa in reach (03/09/231427) Treatment Provided: Therapeutic Activity: 29 minutes Deficits requiring O.T. treatment needs: ADL/self-care;Balance;Endurance;Fine motor coordination;Functional mobility;IADL;Upper extremity strength;Safety;Upper extremity range of motion;Weakness (03/06/231138) Assessment: Pt was agreeable to participating in treatment. OT AMPAC increased from 15 to 16. Pt required mod A supine to sit at EOB. She required min A to doff gown and to rebecca tank top. Pt was dep for donning socks as well as depends and shorts to knee level. Pt reported she needed to use the restroom. She required mod A sit to stand with RW. This OG attempted to help pt rebecca LB clothing for safety from knee level once she was standing but pt began to transfer from EOB to BSC without fully donning LB clothing. Pt required min A transferring from EOB to BSC. She required min A stand <> sit on BSC. She was unable to void. Pt returned to standing and required mod A to rebecca depends and pants from knee level. Pt transferred from BSC to chair with RW with min A. She required verbal cues for safety and sequencing during transfers. Pt sat in chair and was able to groom hair I. Pt was on 2.5L O2 via NC throughout tx. SpO2 read >90% and HR ranged from 50's-100's, RN aware. Pt was left sitting in chair with feet on the floor, call mendosa in reach, pressure pad on, and bedside table in front of her. Plan: Continue treatment as directed by the OT consult. Anticipated Frequency (on eval): 1 to 3 times per week (03/09/231427) Equipment Equipment used in Therapy: Hospital bed;Bedside commode;Rolling walker (07/24/23 1428) AM-PAC Help From Another Person Eating Meals: None (03/09/231427) Help From Another Person Taking Care of Personal Grooming: A little (03/09/231427) Help From Another Person To Put On/Take Off Upper Body Clothing: A little (03/09/231427) Help From Another Person To Put On/Take Off Lower Body Clothing: A lot (03/09/231427) Help From Another Person Toileting: A lot (03/09/231427) Help From Another Person Bathing: A lot (03/09/231427) OT AM-PAC Score: 16 (03/09/231427) OT AM-PAC t-Scale Score: 35.96 (03/09/231427) HLM (Highest Level of Mobility) Goal: Level 4 move to chair/commode (03/09/23952) * Ancillary Progress Note - Tasha De La Torre RN - 03/09/2023 10:52 AM EDT SNF request has been approved. Auth# [id number]. 03/09-03/13. NRD 03/13. Clinical update is to be faxed to [phone]. * Ancillary Progress Note - KAYKAY GarciaT - 03/09/2023 9:56 AM EDT Right UE Venous Duplex- Superficial thrombophlebitis in the cephalic vein of the right forearm. No DVT visualized. * Ancillary Progress Note - Nunu Cohen PTA - 03/09/2023 9:53 AM EDT PROGRESS NOTE - Physical Therapy [facility]-[address] [address] Name: Mayra Salvador Location: [facility]/W Date: 03/09/2023 Time: 9:53 AM Mayra Salvador is a/an 72 year old female. Patient Status: Inpatient Insurance: Payor: [employer] MEDICARE ADVANTAGE Plan: [employer] PPO Product Type: *No Product type* Payor: [facility] MEDICAID Plan: [facility] Product Type: *No Product type* Patient Seen: at bedside, nursing cleared patient for therapy Patient Identified By: Name, ID Band and Date Diagnosis: Gait dysfunction, s/p fall, septic shock, complicated UTI (03/09/23952) Status of treatment: Treatment completed (03/09/23952) Orders: PT evaluation and treatment (03/06/23926) Weight Bearing Status: Weight bearing as tolerated (03/07/231199) Precautions: Alarms;Falls;Oxygen;Safety (03/09/23952) Total Treatment Time--free text: 53 minutes (03/09/23952) Subjective: "I like to get out of bed" Pain: No complaints of pain P.T. Bed Mobility Supine-Sit: Moderate Assistance (03/09/23952) Sit-Supine: Contact Guard (03/09/23952) Transfers Sit-Stand: Moderate Assistance (03/09/23952) Stand-Sit: Minimal Assistance (03/09/23952) W/C-Bed/Mat: Moderate Assistance (03/07/231199) Ambulation: Distance ambulated (feet): 3 + 2 + 7 for 12 total ft Assistive Device: Rolling walker Assist: Minimal Assistance Balance Sit (Static): Good (03/09/23952) Sit (Dynamic): Fair (03/09/23952) Stand (Static): Poor (03/09/23952) Stand (Dynamic): Poor (03/09/23952) Patient and or Family Goal(s): SNF for rehab Topic of Education: Safety with mobility and Goals/plan of care Extremity Exercise Supine: Hip;Ankle;Isometrics (03/09/23952) Hip : Bilateral LE;Adduction;Abduction;2 sets of 10 (03/09/23952) Ankle: Bilateral LE;Plantar flexion;Dorsiflexion;2 sets of 10 (03/09/23952) Isometrics: Bilateral LE;Glute sets;2 sets of 10 (03/09/23952) Method of Education: Verbal discussion and explanation provided to pt: verbalized understanding andor agreement of this information Treatment Provided: Therapeutic Activities 25 minutes: bed mobility training transfer training toilet transfer training Gait Training 13 minutes: gait training with rolling walker Therapeutic Exercises: 15 minutes Alarm Status Patient positioned in: Bed (03/09/23952) With: Bed alarm intact and functioning and call mendosa in reach (03/09/23952) Patient Education Review of Precautions: Safety;Fall (03/09/23952) Review of Exercises: Pt Demonstrated Exercise;Verbal Exercises Provided (03/09/23952) Safety Awareness: Patient verbalizes insight of current deficits;Patient demonstrates carryover of insight during functional tasks;Patient can communicate basic needs (03/07/23 1200) Preferred learning method: Combination (03/06/23 1026) Barriers to learning: Medical Status;Cognition (not fully oriented) (03/06/23 1026) Method of Education: Verbalized to patient;Patient demonstrated task (03/06/23 102) Assessment: Patient continues with an AM-PAC score of 12 requiring assistance for all mobility tasks. Mod verbal cues required throughout treatment session for proper technique for bed mobility, transfers, and ambulation to increase safety and independence. Patient does complete TE as mentioned above in flow sheet to increase strength and facilitate improvement with mobility, however, patient requires frequent cues for focusing on task and exercise progression. Encouraged patient to stay up in recliner post treatment but patient requests to return to bed. Therefore, patient is supine in bed with HOB elevated at end of session. Deficits requiring P.T. treatment needs: Safety;Mobility;Balance;Weakness (03/06/23926) Equipment needs: Rollator;Hospital bed (03/09/23952) Plan: Continue with current treatment plan established on evaluation. AM PAC Score with Stairs: 12 * Ancillary Progress Note - Silvia Rabago, Opening Machine Cleaner - 03/07/2023 1:30 PM EDT CM updated by charge nurse and attending doctor that pt is declining a SNF and wants to return homewith . Referrals were already placed to [facility] and [facility]. CM called and left a message for [facility] HH. [id number] DELON received a return call from Rina at [facility] re: referral. Rina is going to look at the referral and let CM know on acceptance or denial. * Ancillary Progress Note - Jean Pierre Griffin, OCEAN CLAM BOAT CAPTAIN - 03/07/2023 12:00 PM EDT PROGRESS NOTE - Physical Therapy [facility]-[address] [address] Name: Mayra Salvador Location: [place] [address] Date: 03/07/2023 Time: 12:27 PM Mayra Salvador is a/an 72 year old female. Patient Status: Inpatient Insurance: Payor: [employer] MEDICARE ADVANTAGE Plan: [employer] PPO Product Type: *No Product type* Payor: [facility] MEDICAID Plan: [facility] Product Type: *No Product type* Patient Seen: at bedside, nursing cleared patient for therapy Patient Identified By: Name, ID Band and Date Diagnosis: Gait dysfunction, s/p fall, septic shock, complicated UTI (03/06/23926) Status of treatment: Treatment completed (03/07/231199) Orders: PT evaluation and treatment (03/06/23926) Weight Bearing Status: Weight bearing as tolerated (03/07/231199) Precautions: Alarms;Falls;Oxygen;Safety (03/07/231199) Total Treatment Time--free text: 15 mins (03/07/231199) Subjective: "I want therapy every single day when I go home" Pain: No complaints of pain P.T. Bed Mobility Supine-Sit: Moderate Assistance (03/07/231199) Transfers Sit-Stand: Moderate Assistance (03/07/231199) Stand-Sit: Minimal Assistance (03/07/231199) W/C-Bed/Mat: Moderate Assistance (03/07/231199) Ambulation: Distance ambulated (feet): 8 ft Assistive Device: Rolling walker Assist: Minimal Assistance Balance Sit (Static): Good (03/06/23 1026) Sit (Dynamic): Fair (03/06/23 1026) Stand (Static): Poor (poor+ to fair-: mod to min A 1) (03/06/23 102) Stand (Dynamic): Poor (03/06/23 102) Patient and or Family Goal(s): to get well and to return home Topic of Education: Safety with mobility, Use of assistive device and Fall prevention Method of Education: Demonstrated the above task to pt: verbalized understanding and or agreement of this information and demonstrated the exercise and or task Treatment Provided: Gait Training 15 minutes: gait training with rolling walker Alarm Status Patient positioned in: Chair (03/07/23 1200) With: Pressure pad alarm intact and functioning and call mendosa in reach (03/07/23 1200) Patient Education Review of Precautions: Safety;Fall (03/07/23 1200) Review of Exercises: Pt Demonstrated Exercise;Verbal Exercises Provided (03/06/23 102) Safety Awareness: Patient verbalizes insight of current deficits;Patient demonstrates carryover of insight during functional tasks;Patient can communicate basic needs (03/07/23 1200) Preferred learning method: Combination (03/06/23 102) Barriers to learning: Medical Status;Cognition (not fully oriented) (03/06/23 102) Method of Education: Verbalized to patient;Patient demonstrated task (03/06/23 102) Assessment: Pt tolerated tx fair as she showed improvement from IE yesterday, however continues to require Mod A for transfers and Min A for GT at this time. Pt was able to ambulate with a RW and Lorenzo for trunk support. Pt is unsteady and unsafe to transfer or ambulate w/o assistance. Pt was returned to sitting up in the chair with feet on the floor and bedside table in front of pt. No needs post tx session. Pt instructed to not get up without assistance. No needs post tx session. Deficits requiring P.T. treatment needs: Safety;Mobility;Balance;Weakness (03/06/23926) Equipment needs: Rollator;Hospital bed (pt states that she needs a new rollator) (03/06/23 102) Plan: Continue with current treatment plan established on evaluation. AM PAC Score with Stairs: 12 * Ancillary Progress Note - Tasha De La Torre RN - 03/06/2023 12:57 PM EDT Patient accepted at [facility] for short-term rehab. Referral sent to for authorization from [employer]. * Ancillary Progress Note - Kristal Rea, OT - 03/06/2023 11:39 AM EDT PROGRESS NOTE - Occupational Therapy [facility]-[address] [address] Name: Mayra Salvador Location: [place] [address]/ Date: 03/06/2023 Time: 12:22 PM Mayra Salvador is a 72 year old female. Patient Status: Inpatient Insurance: Payor: [employer] MEDICARE ADVANTAGE Plan: [employer] PPO Product Type: *No Product type* Payor: [facility] MEDICAID Plan: [facility] Product Type: *No Product type* Patient Seen: at bedside, nursing cleared patient for therapy Patient Identified By: Name, ID Band and Date Diagnosis: weakness, ADL deficits, decreased endurance = (03/06/23 113) Status of treatment: Treatment completed (03/06/23 1205) Orders: OT evaluation and treatment (03/06/23 113) Weight Bearing Status: Weight bearing as tolerated (03/06/23 113) Precautions: Alarms;Falls;Safety;Oxygen (03/06/23 113) Total Treatment Time: 26 (03/06/23 1205) Subjective: Pt without significant comment and agreeable to participate in therapy. Pain: No complaints of pain Observations Consciousness: Alert (03/06/23 113) Orientation: Oriented times 4 (03/06/23 113) Psychosocial: Patient can communicate basic needs;Patient can converse in a social setting (03/06/23 113) Visual Deficits: (glasses) (03/05/23 1113) Sitting posture: Forward head;Rounded shoulders (03/06/23 1139) Standing posture: Forward head;Rounded shoulders (03/06/23 113) Safety awareness: The Patient verbalizes insight of current deficits.;The Patient demonstrates carryover of insight during functional tasks.;Needs cueing supervision. (03/06/231138) Other Findings Light touch sensation: LUE;RUE;Intact (03/05/23 111) Coordination: LUE;RUE;Gross motor;Intact (FMC slow but intact) (03/05/231112) Current Functional Status: Activities of Daily Living: Self Care Able to provide self care: Yes (03/06/231138) Feeding: Independent (per clinical judgement) (03/06/231138) Grooming: Dependent (for wiping face) (03/05/231112) Toileting: Minimal Assistance (for standing balance when performing hygiene) (03/06/231138) Dressing Upper Body: Moderate Assistance (for threading arms through and tying hospital gown) (03/06/231138) Lower Body: Dependent (for socks) (03/05/231112) Bathing Upper Body: Dependent (assist from staff for lifting arms up to wash under arms) (03/05/231112) Lower Body: Dependent (03/05/231112) Functional Ambulation Assistive Device: Rolling walker (03/06/231138) Distance in feet:: 5 (03/06/231138) Level of Assistance: Moderate Assistance (03/06/231138) Bed Mobility Supine-Sit: Dependent (03/05/231112) OT Transfers Sit-Stand: Moderate Assistance (03/06/231138) Stand-Sit: Minimal Assistance (03/06/231138) Toilet: Minimal Assistance (03/06/231138) Balance Sit (Static): Good (03/06/231138) Sit (Dynamic): Good (03/06/231138) Stand (Static): Fair (03/06/231138) Stand (Dynamic): Fair (03/06/231138) Patient Education Education Topic: Role of OT;Plan of care goals (03/06/231138) Review of Precautions: Fall;Safety (03/06/231138) Method of Education: Verbalized to patient (03/06/231138) Education Provided to: Patient (03/06/231138) Response to Education: Receptive and agreeable to education (03/06/231138) Barriers to learning: Medical status (03/06/231138) Alarm Status Patient positioned in: Chair (03/06/231138) With: Bed alarm intact and functioning and call mendosa in reach (03/06/231138) Treatment Provided: Therapeutic Activity: 26 minutes Deficits requiring O.T. treatment needs: ADL/self-care;Balance;Endurance;Fine motor coordination;Functional mobility;IADL;Upper extremity strength;Safety;Upper extremity range of motion;Weakness (03/06/231138) Assessment: Pt tolerated OT session well. Pt was A&Ox4 and able to answer all prior functional level questions without assist. Pt required Mod A for [facility] gown and [facility] gown d/t pt spilling water on self. Pt performed stand pivot transfer from chair > BSC using the RW for stability with Mod A for initiating sit > stand and Min A for balance/stability while performing pivot. Pt was able to complete toileting with Minimal Assistance for balance to perform hygiene in stance. Pt performed stand pivot transfer from BSC> chair using the RW for stability with Min A for balance/stability while per forming pivot. Pt was positioned for comfort in chair with pressure pad alarm intact and functioning and call bellin reach. OT AM-PAC: 15 Pt requires assist with grooming, bathing, dressing and toileting. As such, Would consider post-acute care services which may include home health, detention, outpatient therapy, or inpatient rehab. The level of care will be determined in collaboration with the patient, family/caregiver, and care team members. Skilled OT services warranted here at [facility] to address deficits in ADLs and functional mobility. Plan: Energy Conservation, Safety, Homemaking Skills, Bed mobility training, Functional Ambulation,Transfer training, Coordination Tasks, ROM exercises, Upper extremity strengthening, Balance activities, ADL training and Endurance Anticipated Frequency (on eval): 1 to 3 times per week (03/06/231138) Equipment Equipment used in Therapy: Hospital bed;Bedside commode (03/06/231138) AM-PAC Help From Another Person Eating Meals: None (03/06/231138) Help From Another Person Taking Care of Personal Grooming: A little (03/06/231138) Help From Another Person To Put On/Take Off Upper Body Clothing: A lot (03/06/23 113) Help From Another Person To Put On/Take Off Lower Body Clothing: Total (03/06/23 113) Help From Another Person Toileting: A little (03/06/231138) Help From Another Person Bathing: A lot (03/06/231138) OT AM-PAC Score: 15 (03/06/23 113) OT AM-PAC t-Scale Score: 34.69 (03/06/23 113) HLM (Highest Level of Mobility) Goal: Level 4 move to chair/commode (03/06/23 1026) * Ancillary Progress Note - Tasha De La Torre RN - 03/06/2023 9:18 AM EDT Patient referred to [facility] for short-term rehab. [employer] - will need auth prior to dc. * Ancillary Progress Note - Mamie Mccray, Opening Machine Cleaner - 03/05/2023 6:32 PM EDT CARE MANAGEMENT - ADULT TRANSITION NOTE [facility] [address] Name: Mayra Salvador Location: [place] [address]/W Date: 03/05/2023 Time: 6:33 PM Risk Stratification Risk Stratification Medical and Behavioral Health Concerns Identified: Advanced age with fragility;Multiple comorbidities (03/04/231717) Psycho Social/Care Gaps concerns identified upon admission:: N/A (03/04/231717) Accessed [employer] to connect patients to social care resources: No (03/04/231717) OBRA or OPTIONS needed for placement: No (03/04/231717) Readmission Risk Score: 28 (03/05/23 1832) AM-PAC Score With Stairs : 12 (03/05/23 0730) Caregiver Information Patient Contacts Name Relation Home Work Mobile theron ryan Adult Child [phone] Transition of Care Checklist Transition of Care Checklist (aka Readmission Risk Score) Readmission Risk Score: 28 (03/05/231831) Discharge Disposition: Home w/Home Health (03/05/231831) Narrative: [facility]. Patient agreed to for therapy. Referrals were placed. Anticipated Transportation at Discharge: Family Patient/Family Expectations: d/c home with hh Transition Planning Transition Planning Transition Plan/Considerations: Needs identified - discharge planning services explained to patientfamily / caregiver - choices offered (03/05/231831) Transition services explained and patient/family/caregiver agreeable: Home with Home Care () [facility] Quality Rating provided to patient: No (03/05/231831) [facility] Choice provided to patient: No (03/05/231831) Insurance Considerations: Therapy documentation needed for precert request (03/05/231831) High cost medication needs/High risk medications: No (03/05/231831) Referral to Community Agency : N/A (03/05/231831) Additional Considerations: NONE Care Management will continue to monitor and assist with discharge planning needs * Ancillary Progress Note - Mamie Mccray Opening Machine Cleaner - 03/04/2023 5:20 PM EDT CARE MANAGEMENT - ADULT INITIAL SCREENING [address] [address] Name: Mayra Salvador Location: [facility]/W Date: 03/04/2023 Time: 5:21 PM Patient Class: Inpatient (03/04/231717) Discussed patient with the interdisciplinary care team. This Agricultural Labor Camp Manager performed a chart review and met with Patient at bedside to complete admission screen and assessed needs for transition planning. The transitional care nurse role and services were explained and emotional support was provided. 30 Day Readmission Screening 30 Day Readmission Readmission within 30 days?: No (03/04/231717) Chief Complaint: Fall Prior Living Arrangements What was your living situation prior to admission/observation?: Independently;With Child (03/04/231717) Do you have any children, pets, or other dependents that you are currently caring for?: Yes (comment) (2 dogs) (03/04/231717) Living Quarters: House (03/04/231717) How many stories is the dwelling?: Two Stories (03/04/231717) Number of steps to enter living quarters:: 4 (03/04/231717) Location of bathroom(s): All floors or Single story dwelling (03/04/231717) Do you have serious difficulty walking or climbing stairs? (5 years old or older): No (03/04/231717) History of falling: Yes (03/04/231717) Prior Level of Functioning Describe the patient's ability prior to admission/observation to perform ADLs: Requires assistance (03/04/231717) Requires assistance with: Dressing;Toileting;Bathing (03/04/231717) Describe the patient's mobility status prior to admission: Patient requires assistance with ambulation (03/04/231717) Patient uses assistive device: Yes (03/04/231717) If yes, choose:: Walker (03/04/231717) Caregiver Information Patient Contacts Name Relation Home Work Mobile theron ryan Adult Child [phone] Risk Stratification/Psychosocial/Care Gaps Risk Stratification Medical and Behavioral Health Concerns Identified: Advanced age with fragility;Multiple comorbidities (03/04/231717) Psycho Social/Care Gaps concerns identified upon admission:: N/A (03/04/231717) Accessed [email or web address] to connect patients to social care resources: No (03/04/231717) OBRA or OPTIONS needed for placement: No (03/04/231717) Readmission Risk Score: 28 (03/04/231717) AM-PAC Score With Stairs : 11 (03/03/231944) CAGE Questionnaire (Please check the correct response) One positive response to any of these questions indicates a need to perform the MAST questionnaire. (C) Have you ever felt the need to CUT DOWN on drinking? no (A) Have you ever felt ANNOYED by criticism of drinking? no (G) Have you ever had GUILTY FEELINGS about drinking? no (E) Have you ever taken a morning EYE PROFESSOR OF PHILOSOPHY? no Comments: Patient came in to [facility] ED after fall from her wheelchair. PMH Type 2 diabetes, COPD, Obesity, Septic shock. Consults PT, OT, Urology, Critical care. Patient reported that she lives at home with her adult child and 2 dogs. Patient reported that she needs help with her ADLS she requires help with dressing, Toileting, and bathing. Patient reported she uses a walker and lives in a two story home with 4 steps in. Patient reported that there are bathrooms on all floors. Patient reported that she has no issues with steps but has had a fall. Patient is willing to go home with but is not sure if that is what she needs at this time. AM pac 11 [employer] MEDICARE ADVANTAGE Prior to Admission Services Services Prior to Admission OCEAN CLAM BOAT CAPTAIN Services (Services received within the last 30 days with exception, Psych within last two years): N/A (03/04/231717) OCEAN CLAM BOAT CAPTAIN Transportation (Services received within the last 30 days): Family/Friends Personal Vehicle (03/04/231717) Outpatient Agricultural Labor Camp Manager: yes (comment name): CORAZON DIAZ Patient/Family Expectations: d/c home Anticipated Disposition Plan & Post Acute Needs Anticipated Plan Anticipated D/C disposition per abbreviated screening: Post hospitalization needs identified, continue to monitor for transition planning (03/04/231717) Anticipated Post-Acute Care needs identified: Home Care Services (03/04/231717) For further screening information, please refer to the Care Management flow document. * Ancillary Progress Note - Chaplain Hayley - 03/04/2023 10:38 AM EDT PROGRESS NOTE - Spiritual Care Contact Information [facility]-[address] [address] Name: Mayra Salvador Location: [facility]/W Date: 03/04/2023 Time: 3:10 PM Buddhist: Other [41] Roman Catholic Affiliations: REASON FOR VISIT: rounding REQUEST RECEIVED FROM: rounding VISIT LENGTH: 10 REQUEST FACTORS (Nature of Situation): Initial Visit and Surgery/Procedure: Post-op FOCUS OF CARE: Patient SPIRITUAL ASSESSMENT: Jacquelin or Belief System: other Most Important Need(s) / Concern(s): Helpless and Suffering Sense of Community and/or Roman Catholic Affiliation: Did not identify Addresses need(s)/concerns(s) and/or ruben through: God/Higher Power SPIRITUAL CARE PROVIDED: Residential Sales Consultant addressed needs/concerns and/or coping through: [place], Prayer and Supportive presence. REFERRAL TO: N/A OUTCOMES: Valdez, Comfort/Healing Presence ANNOTATION: Patient offered minimal conversation ,but ddi desire prayer. I offered supportive presence and prayed for pt with all her needs. Pt seemed comforted by support. * Medical Necessity - Quintin Mcclellan, Utilization Review Staff - 03/03/2023 12:04 AM EDT AdmissionCare Guideline: Sepsis (and Other Febrile Illness without Focal Infection) - INPT, Inpatient Based on the indications selected for the patient, the bed status of Admit to Inpatient was determined to be MET The following indications were selected as present at the time of evaluation of the patient: - Parenteral antimicrobial regimen that must be implemented on inpatient basis (eg, infusion or monitoring needs beyond capabilities of outpatient parenteral therapy) AdmissionCare documentation entered by: Quintin Mcclellan [employer], 26th edition, Copyright 2021 [facility] [employer] All Rights Reserved. [id number]:04:52-04:00 Solely for purpose of utilization review and payment; not a diagnostic tool. * ED [employer] Ret[employer] Technician Note - Cristy Mercedes RN - 03/02/2023 11:20 PM EDT Assumed care of pt. Pt resting on her side. Complains of flank pain. She reports being cold and is shaking. Oral temperature obtained and documented in flowsheets. * ED [employer] Technician Note - Melissa Blake RN - 03/02/2023 5:52 PM EDT Patient is here due to falling out of her wheelchair. She also has multiple other complaints. She has fallen twice in two days and has lower back and buttock pain. She has also been vomiting and nauseated for 2 days. She has a productive cough. She also has left sided pain and a hx of kidney stones. Patient denies chest pain and SOB. Breath sounds are diminished but clear. Patient wears 3 L NC chronically and SpO2 is 95%. Chest rise is equal with regular rate and rhythm. Breathing is unlabored. Abdomen is soft but tender in the RUQ. Bowel sounds are present and active. She denies D/C. Peripheral pulses present in all extremities. Patient has L flank pain and chronic issues with incontinence/leaking but denies other urinary symptoms. Patient is warm and dry and flesh tone. Cap refill is less than 2 seconds. She states she has pain that goes into her right leg and both bilateral extremities are chronically numb or tingly. Patient denies other needs at this time. She is resting in bed with a call mendosa within reach. No signs of acute distress at this time. documented in this encounter Plan of Treatment Scheduled Orders Name Type Priority Associated Diagnoses Orde r Schedule EXTRA TUBES Lab Routine One Time for 1 Occurrences starting 03/08/2023 until 03/08/2023 Scheduled Procedures Name Priority Associated Diagnoses Date/Ti [...] 07/09/2020, Additional history exists HbA1c 09/03/2023 03/03/2023, 010 12/2022, 12/27/2021, Additional history exists O2 ASSESSMENT [...] D LEVEL ONCE IN A LIFETIME-USE SMARTSET# [id number] Completed 06/12/2022, 01/31/2019, 04/06/2018, Additional history exists [...] Comments GLUCOSE METER, POINT OF CARE SANDRA 03/09/2023 11:31 AM EDT VASC DUPLEX VENOUS UE UNILAT STAT 03/09/2023 9:56 AM EDT GLUCOSE METER, POINT OF CARE SANDRA 03/09/2023 7:46 AM EDT BASIC METABOLIC PANEL Routine 03/09/2023 4:55 AM EDT PHOSPHORUS STAT 03/09/2023 4:55 AM EDT CALCIUM, IONIZED Routine 03/09/2023 4:55 AM EDT CBC STAT 03/09/2023 4:55 AM EDT MAGNESIUM STAT 03/09/2023 4:55 AM EDT GLUCOSE METER, POINT OF CARE SANDRA 03/08/2023 9:22 PM EDT GLUCOSE METER, POINT OF CARE SANDRA 03/08/2023 4:04 PM EDT GLUCOSE METER, POINT OF CARE [facility] 03/08/2023 11:48 AM EDT D-DIMER STAT 03/08/2023 10:15 AM EDT EXTRA GREEN TOP WITH GEL Routine 023 10:14 AM EDT EXTRA LAVENDER TOP Routine 03/08/2023 10 :14 AM EDT EXTRA TUBES Routine 03/08/2023 10:14 AM EDT LACTATE Routine 03/08/2023 10:14 AM EDT GLUCOSE METER, POINT OF CARE SANDRA 03/08/2023 7:38 AM EDT PROCALCITONIN Add-on 03/08/2023 5:27 AM EDT CRP (INFLAMMATORY MARKER) Add-on 2022 5:27 AM EDT BASIC METABOLIC PANEL Routine 03/08/2023 5:27 AM EDT PHOSPHORUS STAT 03/08/2023 5:27 AM EDT CALCIUM, IONIZED Routine 03/08/2023 5:27 AM EDT CBC STAT 03/08/2023 5:27 AM EDT MAGNESIUM STAT 03/08/2023 5:27 AM EDT GLUCOSE METER, POINT OF CARE SANDRA 03/07/2023 9:16 PM EDT GLUCOSE METER, POINT OF CARE [facility] 03/07/2023 4:12 PM EDT GLUCOSE METER, POINT OF CARE [facility] 03/07/2023 11:33 AM EDT GLUCOSE METER, POINT OF CARE [facility] 03/07/2023 7:42 AM EDT CALCIUM, IONIZED Routine 03/07/2023 6:01 AM EDT BASIC METABOLIC PANEL Routine 03/07/2023 6:00 AM EDT PHOSPHORUS STAT 03/07/2023 6:00 AM EDT CBC STAT 03/07/2023 6:00 AM EDT MAGNESIUM STAT 03/07/2023 6:00 AM EDT GLUCOSE METER, POINT OF CARE SANDRA 03/06/2023 9:06 PM EDT GLUCOSE METER, POINT OF CARE SANDRA 03/06/2023 4:42 PM EDT GLUCOSE METER, POINT OF CARE SANDRA 03/06/2023 11:26 AM EDT GLUCOSE METER, POINT OF CARE [facility] 03/06/2023 7:36 AM EDT CALCIUM, IONIZED Routine 03/06/2023 5:51 AM EDT BASIC METABOLIC PANEL Routine 03/06/2023 5:50 AM EDT PHOSPHORUS STAT 03/06/2023 5:50 AM EDT CBC STAT 03/06/2023 5:50 AM EDT MAGNESIUM STAT 03/06/2023 5:50 AM EDT HC ECG TRACING ONLY STAT 03/06/2023 3 :27 AM EDT Chest pain GLUCOSE METER, POINT OF CARE SANDRA 03/05/2023 9:25 PM EDT GLUCOSE METER, POINT OF CARE SANDRA 03/05/2023 4:29 PM EDT XR KNEE 1-2 VIEWS Routine 03/05/2023 2:0 2 PM EDT GLUCOSE METER, POINT OF CARE SANDRA 03/05/2023 11:58 AM EDT GLUCOSE METER, POINT OF CARE [facility] 03/05/2023 7:32 AM EDT BASIC METABOLIC PANEL Routine 03/05/2023 5:27 AM EDT PHOSPHORUS STAT 03/05/2023 5:27 AM EDT CALCIUM, IONIZED Routine 03/05/2023 5:27 AM EDT CBC STAT 03/05/2023 5:27 AM EDT MAGNESIUM STAT 03/05/2023 5:27 AM EDT GLUCOSE METER, POINT OF CARE [facility] 03/04/2023 9:21 PM EDT CULTURE, BLOOD STAT 03/04/2023 5:15 PM EDT GLUCOSE METER, POINT OF CARE [facility] 03/04/2023 4:28 PM EDT GLUCOSE METER, POINT OF CARE [facility] 03/04/2023 11:10 AM EDT XR CHEST 1 VIEW Routine 03/04/2023 9:48 AM EDT GLUCOSE METER, POINT OF CARE [facility] 03/04/2023 7:17 AM EDT BASIC METABOLIC PANEL Routine 03/04/2023 5:49 AM EDT PHOSPHORUS STAT 03/04/2023 5:49 AM EDT CALCIUM, IONIZED Routine 03/04/2023 5:49 AM EDT CBC STAT 03/04/2023 5:49 AM EDT MAGNESIUM STAT 03/04/2023 5:49 AM EDT GLUCOSE METER, POINT OF CARE [facility] 03/03/2023 9:21 PM EDT CBC Routine 03/03/2023 4:13 PM EDT BASIC METABOLIC PANEL Routine 03/03/2023 4:09 PM EDT CALCIUM, IONIZED, WHOLE BLOOD STAT 03/03/2023 4:09 PM EDT MAGNESIUM Routine 03/03/2023 4:09 PM EDT GLUCOSE METER, POINT OF CARE [facility] 03/03/2023 3:36 PM EDT HC ECG TRACING ONLY STAT 03/03/2023 3 :27 PM EDT Chest pain GLUCOSE METER, POINT OF CARE [facility] 03/03/2023 12:08 PM EDT CALCIUM, IONIZED, WHOLE BLOOD STAT 03/03/2023 11:56 AM EDT XR RETROGRADE URETHROGRAM IN OR - TECH CHARGE Routine 03/03/2023 10:55 AM EDT CULTURE, URINE, QUANTITATIVE Routine 03/03/2023 10:30 AM EDT Kidney stone on left side CYSTOURETHROSCOPY WITH INSERTION URETERAL STENT 03/03/2023 9:39 AM EDT Kidney stone on left side LACTATE STAT 03/03/2023 6:53 AM EDT MRSA SCREEN, PCR Routine 03/03/2023 6:25 AM EDT DIFFERENTIAL, AUTOMATED Routine 03/03/20 6:03 AM EDT TSH WITH FREE T4 IF INDICATED Add-on 03/03/2023 6:03 AM EDT HEMOGLOBIN A1C Routine 03/03/2023 6:03 AM EDT BASIC METABOLIC PANEL Routine 03/03/2023 6:03 AM EDT CBC WITH WBC DIFFERENTIAL Routine 2022 6:03 AM EDT CBC Routine 03/03/2023 6:03 AM EDT DIFFERENTIAL, TECHNOLOGIST REVIEW Routine 03/03/2023 6:03 AM EDT GLUCOSE METER, POINT OF CARE [facility] 03/03/2023 1:23 AM EDT CULTURE, BLOOD Routine 03/02/2023 7:23 PM EDT BLOOD CULTURE PCR IDENTIFICATION-ANAEROBIC Routine 03/02/2023 7:20 PM EDT CULTURE, BLOOD Routine 03/02/2023 7:20 PM EDT XR CHEST 2 VIEWS STAT 03/02/2023 7:08 PM EDT XR HIP UNILAT 2-3 VIEWS INCLUDING AP PELVIS STAT 03/02/2023 7:[address] L SPINE WO CONTRAST STAT 6:[address] ABD/PELVIS WO IV/ORAL CONTRAST STAT 03/02/2023 6:58 PM EDT MICROSCOPIC EXAM, URINE STAT 03/02/20 6:37 PM EDT URINALYSIS, REFLEX TO MICROSCOPIC STAT 03/02/2023 6:37 PM EDT EXTRA GREEN TOP WITH GEL Routine 023 5:54 PM EDT EXTRA LIGHT BLUE TOP Routine 03/02/2023 5:54 PM EDT EXTRA TUBES Routine 03/02/2023 5:54 PM EDT COMPREHENSIVE METABOLIC PANEL STAT 03/02/2023 5:54 PM EDT LIPASE STAT 03/02/2023 5:54 PM EDT LACTATE,WHOLE BLOOD STAT 03/02/2023 5 :54 PM EDT CBC STAT 03/02/2023 5:54 PM EDT RESPIRATORY PATHOGEN PANEL, PCR STAT 03/02/2023 5:43 PM EDT documented in this encounter Results * (ABNORMAL) GLUCOSE METER, POINT OF CARE (03/09/2023 11:31 AM EDT) Glucose Meter 124(H) 70 - 120 mg/dL 03/09/2023 12:19 PM EDT [facility] Blood Whole blood specimen / Unknown 03/09/2023 11:31 AM EDT 03/09/2023 12:19 PM EDT Andi Richmond MD LAB POINT OF CARE TE ST DOCKED DEVICE UNSOLICITED RESULTS [facility] [address] [place] [address] * VASC DUPLEX VENOUS UE UNILAT (03/09/2023 9:56 AM EDT) Anatomical Region Laterality Modality Upper Extremity, Vascular Ultras ound Narrative 03/09/2023 10:32 AM EDT VASCULAR LAB RESULTS DATE OF EXAMINATION: 03/09/23 INDICATION: Edema, Unspecified UPPER EXTREMITY VENOUS DUPLEX EXAMINATION PHYSICIAN REPORT: Immediately before proceeding with the vascular lab procedure reported below, the identity of the patient, the correct exam and the correct procedural site were identified. Color flow Doppler, spectral analysis, and transducer compression techniques were applied during this ultrasound image examination. RIGHT UPPER EXTREMITY Duplex examination includes visualization of the right internal jugular vein, innominate vein, subclavian vein and axillary vein. The veins are free of internal echoes with normal diameter changes in response to respiratory cycles demonstrated. Doppler signals demonstrate spontaneous cyclic flow dynamics. The brachial veins demonstrate normal compressibility. The basilic vein is compressible without internal echoes. Right cephalic vein of the forearm is non-compressible and echogenic. The contralateral subclavian vein is patent and demonstrates respirophasic flow. CONCLUSIONS: Right upper extremity venous duplex examination with no evidence of acute deep venous thrombosis in this extremity. Superficial thrombophlebitis of the right upper extremity noted in the cephalic vein. Preliminary report was given to RN on 03/09/23 at 09:25 . Andi Richmond MD RAD VASCULAR * GLUCOSE METER, POINT OF CARE (03/09/2023 7:46 AM EDT) Glucose Meter 105 70 - 120 mg/dL 03/09/2023 7:59 AM EDT [facility] Blood Whole blood specimen / Unknown 03/09/2023 7:46 AM EDT 03/09/2023 7:59 AM EDT Andi Richmond MD LAB POINT OF CARE TE ST DOCKED DEVICE UNSOLICITED RESULTS Performing Organization Address [facility]/ZIP Co de Phone Number [facility] [address] [place] [address] * CALCIUM, IONIZED (03/09/2023 4:55 AM EDT) Calcium, Ionized 1.22 1.13 - 1.32 mmol/L 03/09/2023 6:13 AM EDT LABORATORY GL Comment:This test was develo ped and its performance characteristics dtermined by [employer]. It has not been cleared or approved by the [place] Food and Drug Administration Blood Venous blood specimen / Unknown Venipuncture / Unknown 03/09/2023 4:55 AM EDT 03/09/2023 5:08 AM EDT Scarlett Bacon PA-C LAB BLOOD ORDERA BLES Performing Organization Address City/[facility]/ZIP Co de Phone Number LABORATORY [address] [id number] * (ABNORMAL) CBC (03/09/2023 4:55 AM EDT) WBC 9.92 4.00 - 10.80 K/uL 03/09/2023 5:16 AM EDT LABORATORY GL RBC 3.38 3.85 - 5.15 M/uL 03/09/2023 5:16 AM EDT LABORATORY GL HGB 9.1(L) 12.0 - 15.3 g/dL 03/09/2023 5:16 AM EDT LABORATORY GL HCT 29.2(L) 36.0 - 45.2 % 03/09/2023 5:16 AM EDT LABORATORY GL MCV 86.4 81.5 - 97.5 fL 03/09/2023 5:16 AM EDT LABORATORY GLH MCH 26.9 27.0 - 34.0 pg 03/09/2023 5:16 AM EDT LABORATORY [facility] MCHC 31.2 32.0 - 36.0 g/dL 03/09/2023 5:16 AM EDT LABORATORY [facility] RDW 15.5 11.5 - 15.5 % 03/09/2023 5:16 AM EDT LABORATORY [facility] PLT 136(L) 140 - 400 K/uL 03/09/2023 5:16 AM EDT LABORATORY [facility] MPV 12.8 6.6 - 11.1 fL 03/09/2023 5:16 AM EDT LABORATORY [facility] nRBCs 0 <=0 /100 WBCs 03/09/2023 5:16 AM EDT LABORATORY [facility] Blood Venous blood specimen / Unknown Venipuncture / Unknown 03/09/2023 4:55 AM EDT 03/09/2023 5:08 AM EDT Scarlett Bacon PA-C LAB BLOOD ORDERA BLES LABORATORY [address] [id number] * PHOSPHORUS (03/09/2023 4:55 AM EDT) Phosphorus 3.0 2.5 - 4.8 mg/dL 03/09/2023 5:40 AM EDT LABORATORY [facility] Blood Venous blood specimen / Unknown Venipuncture / Unknown 03/09/2023 4:55 AM EDT 03/09/2023 5:08 AM EDT Scarlett Bacon PA-C LAB BLOOD ORDERA BLES LABORATORY [address] [id number] * MAGNESIUM (03/09/2023 4:55 AM EDT) Magnesium 1.6 1.5 - 2.6 mg/dL 03/09/2023 5:40 AM EDT LABORATORY [facility] Blood Venous blood specimen / Unknown Venipuncture / Unknown 03/09/2023 4:55 AM EDT 03/09/2023 5:08 AM EDT Scarlett Bacon PA-C LAB BLOOD ORDERA BLES Performing Organization Address City/[facility]/ZIP Co de Phone Number LABORATORY GL [address] [place] [address] * (ABNORMAL) BASIC METABOLIC PANEL (03/09/2023 4:55 AM EDT) BUN 23(H) 6 - 20 mg/dL 03/09/2023 5:40 AM EDT LABORATORY GLH Creatinine 1.2(H) 0.5 - 1.0 mg/dL 03/09/2023 5:40 AM EDT LABORATORY GLH Estimated Glomerular Filtration Rate 50(L) >=60 mL/min 03/09/2023 5:40 AM EDT LABORATORY GLH Comment:eGFR is calculated b ased on the CKD-EPI 2020 equation Sodium 140 135 - 146 mmol/L 03/09/2023 5:40 AM EDT LABORATORY GLH Potassium 3.6 3.5 - 5.1 mmol/L 03/09/2023 5:40 AM EDT LABORATORY GLH Chloride 104 98 - 107 mmol/L 03/09/2023 5:40 AM EDT LABORATORY GLH CO2 29 22 - 32 mmol/L 03/09/2023 5:40 AM EDT LABORATORY GLH Anion Gap 7 7 - 15 mmol/L 03/09/2023 5:40 AM EDT LABORATORY GLH Glucose 127(H) 70 - 120 mg/dL 03/09/2023 5:40 AM EDT LABORATORY GLH Calcium 8.6 8.4 - 10.2 mg/dL 03/09/2023 5:40 AM EDT LABORATORY GLH Blood Venous blood specimen / Unknown Venipuncture / Unknown 03/09/2023 4:55 AM EDT 03/09/2023 5:08 AM EDT Scarlett Bacon PA-C LAB BLOOD ORDERA BLES LABORATORY GL [address] [place] [id number] * (ABNORMAL) GLUCOSE METER, POINT OF CARE (03/08/2023 9:22 PM EDT) Glucose Meter 127(H) 70 - 120 mg/dL 03/08/2023 9:27 PM EDT [facility] Blood Whole blood specimen / Unknown 03/08/2023 9:22 PM EDT 03/08/2023 9:27 PM EDT Andi Richmond MD LAB POINT OF CARE TE ST DOCKED DEVICE UNSOLICITED RESULTS Performing Organization Address City/[facility]/ZIP Co de Phone Number [facility] [address] [facility] [place] [address] * (ABNORMAL) GLUCOSE METER, POINT OF CARE (03/08/2023 4:04 PM EDT) Glucose Meter 134(H) 70 - 120 mg/dL 03/08/2023 4:56 PM EDT [facility] Blood Whole blood specimen / Unknown 03/08/2023 4:04 PM EDT 03/08/2023 4:56 PM EDT Andi Richmond MD LAB POINT OF CARE TE ST DOCKED DEVICE UNSOLICITED RESULTS Performing Organization Address [facility]/ZIP Co de Phone Number [facility] [address] [place] [address] * (ABNORMAL) GLUCOSE METER, POINT OF CARE (03/08/2023 11:48 AM EDT) Glucose Meter 124(H) 70 - 120 mg/dL 03/09/2023 10:42 AM EDT [facility] Blood Whole blood specimen / Unknown 03/08/2023 11:48 AM EDT 03/09/2023 10:42 AM EDT Andi Richmond MD LAB POINT OF CARE TE ST DOCKED DEVICE UNSOLICITED RESULTS Performing Organization Address City/[facility]/ZIP Co de Phone Number [facility] [address] [place] [address] * (ABNORMAL) D-DIMER (03/08/2023 10:15 AM EDT) D-Dimer 6.28(H) <0.50 ug/mL FEU 03/08/2023 12:01 PM EDT LABORATORY [facility] Comment:Results rechecked. Blood Venous blood specimen / Unknown Venipuncture / Unknown 03/08/2023 10:15 AM EDT 03/08/2023 10:18 AM EDT Narrative LABORATORY [facility] - 03/08/2023 12:01 PM EDT Rheumatoid factor at a level above 50 IU/mL may lead to an overestimation of the D-dimer level. A normal D-dimer result (<0.50 ug/mL FEU) has a negative predictive value of approximately 95% for the exclusion of acute pulmonary embolism (PE) or deep vein thrombosis when there is low or moderate pretest PE probability. Increased D-dimer values are abnormal but do not indicate a specific disease state and the D-dimer increase does not definitively correlate with clinical severity of disease. Andi Richmond MD LAB BLOOD ORDERABLES Performing Organization Address [facility] Co de Phone Number LABORATORY [address] [address] * EXTRA GREEN TOP WITH GEL (03/08/2023 10:14 AM EDT) Blood Venous blood specimen / Unknown 03/08/2023 10:14 AM EDT 03/08/2023 10:53 AM EDT Andi Richmond MD LAB BLOOD ORDERABLES Performing Organization Address City/[facility]/ZIP Co de Phone Number LABORATORY [address] [address] * EXTRA LAVENDER TOP (03/08/2023 10:14 AM EDT) Blood Venous blood specimen / Unknown 03/08/2023 10:14 AM EDT 03/08/2023 10:47 AM EDT Andi Richmond MD LAB BLOOD ORDERABLES Performing Organization Address [facility]/ZIP Co de Phone Number LABORATORY [facility] [address] [place] [address] * LACTATE (03/08/2023 10:14 AM EDT) Lactate 0.8 0.4 - 2.0 mmol/L 03/08/2023 10:38 AM EDT LABORATORY [facility] Blood Venous blood specimen / Unknown Venipuncture / Unknown 03/08/2023 10:14 AM EDT 03/08/2023 10:18 AM EDT Andi Richmond MD LAB BLOOD ORDERABLES Performing Organization Address [facility] Co de Phone Number LABORATORY [address] [address] * GLUCOSE METER, POINT OF CARE (03/08/2023 7:38 AM EDT) Glucose Meter 113 70 - 120 mg/dL 03/08/2023 7:56 AM EDT [facility] Blood Whole blood specimen / Unknown 03/08/2023 7:38 AM EDT 03/08/2023 7:55 AM EDT Andi Richmond MD LAB POINT OF CARE TE ST DOCKED DEVICE UNSOLICITED RESULTS Performing Organization Address [facility] de Phone Number [facility] [address] [place] [phone] * (ABNORMAL) PROCALCITONIN (03/08/2023 5:27 AM EDT) Procalcitonin 1.90(H) <0.10 ng/mL 03/08/2023 10:40 AM EDT LABORATORY [facility] Blood Venous blood specimen / Unknown Venipuncture / Unknown 03/08/2023 5:27 AM EDT 03/08/2023 5:32 AM EDT Narrative LABORATORY [facility] - 03/08/2023 10:40 AM EDT Less than 0.5 ng/mL: Low risk for progression to sepsis. Review patients condition for localized infections. 0.5 to 2.0 ng/mL: Intermediate risk for progresion to sepsis. Review underlying conditions. Recommend repeat PCT after 6 hours has elapsed. Greater than 2.0 ng/mL: high risk for progression to sepsis unless other causes are known. Andi Richmond MD LAB BLOOD ORDERABLES Performing Organization Address [facility] de Phone Number LABORATORY [address] [address] * (ABNORMAL) CRP (INFLAMMATORY MARKER) (03/08/2023 5:27 AM EDT) [facility] CRP (Inflammatory Marker) 117(H) <=5 mg/L 03/08/2023 10:50 AM EDT LABORATORY [facility] Blood Venous blood specimen / Unknown Venipuncture / Unknown 03/08/2023 5:27 AM EDT 03/08/2023 5:32 AM EDT Andi Richmond MD LAB BLOOD ORDERABLES Performing Organization Address [facility] de Phone Number LABORATORY [address] [address] * CALCIUM, IONIZED (03/08/2023 5:27 AM EDT) [facility] Calcium, Ionized 1.21 1.13 - 1.32 mmol/L 03/08/2023 6:18 AM EDT LABORATORY [facility] Comment:This test was develo ped and its performance characteristics dtermined by [employer]. It has not been cleared or approved by the [place] Food and Drug Administration Blood Venous blood specimen / Unknown Venipuncture / Unknown 03/08/2023 5:27 AM EDT 03/08/2023 5:32 AM EDT Scarlett Bacon PA-C LAB BLOOD ORDERA BLES Performing Organization Address [facility] de Phone Number LABORATORY [address] [address] * (ABNORMAL) CBC (03/08/2023 5:27 AM EDT) WBC 8.40 4.00 - 10.80 K/uL 03/08/2023 6:07 AM EDT LABORATORY [facility] RBC 3.49 3.85 - 5.15 M/uL 03/08/2023 6:07 AM EDT LABORATORY [facility] HGB 9.3(L) 12.0 - 15.3 g/dL 03/08/2023 6:07 AM EDT LABORATORY [facility] HCT 30.7(L) 36.0 - 45.2 % 03/08/2023 6:07 AM EDT LABORATORY [facility] MCV 88.0 81.5 - 97.5 fL 03/08/2023 6:07 AM EDT LABORATORY [facility] MCH 26.6 27.0 - 34.0 pg 03/08/2023 6:07 AM EDT LABORATORY [facility] MCHC 30.3 32.0 - 36.0 g/dL 03/08/2023 6:07 AM EDT LABORATORY [facility] RDW 15.6 11.5 - 15.5 % 03/08/2023 6:07 AM EDT LABORATORY [facility] PLT 117(L) 140 - 400 K/uL 03/08/2023 6:07 AM EDT LABORATORY [facility] MPV 13.5 6.6 - 11.1 fL 03/08/2023 6:07 AM EDT LABORATORY [facility] nRBCs 0 <=0 /100 WBCs 03/08/2023 6:07 AM EDT LABORATORY [facility] Blood Venous blood specimen / Unknown Venipuncture / Unknown 03/08/2023 5:27 AM EDT 03/08/2023 5:32 AM EDT Scarlett Bacon PA-C LAB BLOOD ORDERA BLES LABORATORY [facility] [address] [place] [address] * PHOSPHORUS (03/08/2023 5:27 AM EDT) Pathologist [facility] Phosphorus 2.5 2.5 - 4.8 mg/dL 03/08/2023 5:56 AM EDT LABORATORY [facility] Blood Venous blood specimen / Unknown Venipuncture / Unknown 03/08/2023 5:27 AM EDT 03/08/2023 5:32 AM EDT Scarlett Bacon PA-C LAB BLOOD ORDERA BLES Performing Organization Address City/[facility]/ZIP Co de Phone Number LABORATORY GL [address] [place] [address] * MAGNESIUM (03/08/2023 5:27 AM EDT) Magnesium 1.8 1.5 - 2.6 mg/dL 03/08/2023 5:56 AM EDT LABORATORY GL Blood Venous blood specimen / Unknown Venipuncture / Unknown 03/08/2023 5:27 AM EDT 03/08/2023 5:32 AM EDT Scarlett Bacon PA-C LAB BLOOD ORDERA BLES Performing Organization Address [facility]/ZIP Co de Phone Number LABORATORY [address] [address] * (ABNORMAL) BASIC METABOLIC PANEL (03/08/2023 5:27 AM EDT) BUN 29(H) 6 - 20 mg/dL 03/08/2023 5:56 AM EDT LABORATORY GL Creatinine 1.3(H) 0.5 - 1.0 mg/dL 03/08/2023 5:56 AM EDT LABORATORY GLH Estimated Glomerular Filtration Rate 44(L) >=60 mL/min 03/08/2023 5:56 AM EDT LABORATORY [facility] Comment:eGFR is calculated b ased on the CKD-EPI 2020 equation Sodium 138 135 - 146 mmol/L 03/08/2023 5:56 AM EDT LABORATORY GL[facility] Potassium 3.6 3.5 - 5.1 mmol/L 03/08/2023 5:56 AM EDT LABORATORY [facility] Chloride 104 98 - 107 mmol/L 03/08/2023 5:56 AM EDT LABORATORY GL[facility] CO2 26 22 - 32 mmol/L 03/08/2023 5:56 AM EDT LABORATORY GL[facility] Anion Gap 8 7 - 15 mmol/L 03/08/2023 5:56 AM EDT LAB[facility]ATORY GL[facility] Glucose 128(H) 70 - 120 mg/dL 03/08/2023 5:56 AM EDT LABORATORY GL Calcium 8.8 8.4 - 10.2 mg/dL 03/08/2023 5:56 AM EDT LABORATORY [facility] Blood Venous blood specimen / Unknown Venipuncture / Unknown 03/08/2023 5:27 AM EDT 03/08/2023 5:32 AM EDT Scarlett Bacon PA-C LAB BLOOD ORDERA BLES Performing Organization Address City/[facility]/ZIP Co de Phone Number LABORATORY GL [address] [place], [place] [id number] * (ABNORMAL) GLUCOSE METER, POINT OF CARE (03/07/2023 9:16 PM EDT) Glucose Meter 156(H) 70 - 120 mg/dL 03/08/2023 11:58 AM EDT [facility] Blood Whole blood specimen / Unknown 03/07/2023 9:16 PM EDT 03/08/2023 11:58 AM EDT Andi Richmond MD LAB POINT OF CARE TE ST DOCKED DEVICE UNSOLICITED RESULTS Performing Organization Address [facility] de Phone Number [facility] [address] [place] [phone] * (ABNORMAL) GLUCOSE METER, POINT OF CARE (03/07/2023 4:12 PM EDT) Glucose Meter 139(H) 70 - 120 mg/dL 03/07/2023 4:40 PM EDT [facility] Blood Whole blood specimen / Unknown 03/07/2023 4:12 PM EDT 03/07/2023 4:40 PM EDT Andi Richmond MD LAB POINT OF CARE TE ST DOCKED DEVICE UNSOLICITED RESULTS Performing Organization Address [facility] Co de Phone Number [facility] [address] [place] [address] * (ABNORMAL) GLUCOSE METER, POINT OF CARE (03/07/2023 11:33 AM EDT) Glucose Meter 142(H) 70 - 120 mg/dL 03/07/2023 4:40 PM EDT [facility] Blood Whole blood specimen / Unknown 03/07/2023 11:33 AM EDT 03/07/2023 4:40 PM EDT Andi Richmond MD LAB POINT OF CARE TE ST DOCKED DEVICE UNSOLICITED RESULTS Performing Organization Address [facility] de Phone Number [facility] [facility] [address] [place] [address] * (ABNORMAL) GLUCOSE METER, POINT OF CARE (03/07/2023 7:42 AM EDT) Glucose Meter 124(H) 70 - 120 mg/dL 03/07/2023 8:03 AM EDT [facility] Blood Whole blood specimen / Unknown 03/07/2023 7:42 AM EDT 03/07/2023 8:03 AM EDT Andi Richmond MD LAB POINT OF CARE TE ST DOCKED DEVICE UNSOLICITED RESULTS Performing Organization Address [facility] de Phone Number [facility] [address] [place] [address] * CALCIUM, IONIZED (03/07/2023 6:01 AM EDT) Calcium, Ionized 1.20 1.13 - 1.32 mmol/L 03/07/2023 7:25 AM EDT LABORATORY [facility] Comment:This test was develo ped and its performance characteristics dtermined by [employer]. It has not been cleared or approved by the US Food and Drug Administration Blood Venous blood specimen / Unknown Venipuncture / Unknown 03/07/2023 6:01 AM EDT 03/07/2023 6:58 AM EDT Scarlett Bacon PA-C LAB BLOOD ORDERA BLES Performing Organization Address [facility]/ZIP Co de Phone Number LABORATORY [facility] [address] [place] [address] * (ABNORMAL) CBC (03/07/2023 6:00 AM EDT) [facility] WBC 10.31 4.00 - 10.80 K/uL 03/07/2023 7:30 AM EDT LABORATORY [facility] RBC 3.38 3.85 - 5.15 M/uL 03/07/2023 7:30 AM EDT LABORATORY [facility] HGB 9.5(L) 12.0 - 15.3 g/dL 03/07/2023 7:30 AM EDT LABORATORY [facility] HCT 29.6(L) 36.0 - 45.2 % 03/07/2023 7:30 AM EDT LABORATORY [facility] MCV 87.6 81.5 - 97.5 fL 03/07/2023 7:30 AM EDT LABORATORY [facility] MCH 28.1 27.0 - 34.0 pg 03/07/2023 7:30 AM EDT LABORATORY [facility] MCHC 32.1 32.0 - 36.0 g/dL 03/07/2023 7:30 AM EDT LABORATORY [facility] RDW 15.9 11.5 - 15.5 % 03/07/2023 7:30 AM EDT LABORATORY [facility] PLT 103(L) 140 - 400 K/uL 03/07/2023 7:30 AM EDT LABORATORY [facility] MPV 12.6 6.6 - 11.1 fL 03/07/2023 7:30 AM EDT LABORATORY [facility] nRBCs 0 <=0 /100 WBCs 03/07/2023 7:30 AM EDT LABORATORY [facility] Blood Venous blood specimen / Unknown Venipuncture / Unknown 03/07/2023 6:00 AM EDT 03/07/2023 6:58 AM EDT Scarlett Bacon PA-C LAB BLOOD ORDERA BLES Performing Organization Address City/[facility]/ZIP Co de Phone Number LABORATORY [facility] [address] [place] [address] * PHOSPHORUS (03/07/2023 6:00 AM EDT) Phosphorus 2.5 2.5 - 4.8 mg/dL 03/07/2023 7:29 AM EDT LABORATORY GL Blood Venous blood specimen / Unknown Venipuncture / Unknown 03/07/2023 6:00 AM EDT 03/07/2023 6:58 AM EDT Scarlett Bacon PA-C LAB BLOOD ORDERA BLES Performing Organization Address City/[facility]/ZIP Co de Phone Number LABORATORY [address] [phone] * MAGNESIUM (03/07/2023 6:00 AM EDT) Magnesium 2.2 1.5 - 2.6 mg/dL 03/07/2023 7:29 AM EDT LABORATORY GL Blood Venous blood specimen / Unknown Venipuncture / Unknown 03/07/2023 6:00 AM EDT 03/07/2023 6:58 AM EDT Scarlett Bacon PA-C LAB BLOOD ORDERA BLES Performing Organization Address [facility]/ZIP Co de Phone Number LABORATORY [address] [phone] * (ABNORMAL) BASIC METABOLIC PANEL (03/07/2023 6:00 AM EDT) BUN 35(H) 6 - 20 mg/dL 03/07/2023 7:29 AM EDT LABORATORY GL Creatinine 1.5(H) 0.5 - 1.0 mg/dL 03/07/2023 7:29 AM EDT LABORATORY GL Estimated Glomerular Filtration Rate 37(L) >=60 mL/min 03/07/2023 7:29 AM EDT LABORATORY [facility] Comment:eGFR is calculated b ased on the CKD-EPI 2020 equation Sodium 137 135 - 146 mmol/L 03/07/2023 7:29 AM EDT LABORATORY [facility] Potassium 3.7 3.5 - 5.1 mmol/L 03/07/2023 7:29 AM EDT LABORATORY GL[facility] Chloride 104 98 - 107 mmol/L 03/07/2023 7:29 AM EDT LABORATORY GL[facility] CO2 25 22 - 32 mmol/L 03/07/2023 7:29 AM EDT LABORATORY GL[facility] Anion Gap 8 7 - 15 mmol/L 03/07/2023 7:29 AM EDT LABORATORY GL[facility] Glucose 124(H) 70 - 120 mg/dL 03/07/2023 7:29 AM EDT LABORATORY [facility] Calcium 8.5 8.4 - 10.2 mg/dL 03/07/2023 7:29 AM EDT LABORATORY [facility] Blood Venous blood specimen / Unknown Venipuncture / Unknown 03/07/2023 6:00 AM EDT 03/07/2023 6:58 AM EDT Scarlett Bacon PA-C LAB BLOOD ORDERA BLES Performing Organization Address [facility] Co de Phone Number LABORATORY [facility] [address] [place] [address] * (ABNORMAL) GLUCOSE METER, POINT OF CARE (03/06/2023 9:06 PM EDT) Glucose Meter 144(H) 70 - 120 mg/dL 03/06/2023 9:32 PM EDT [facility] Blood Whole blood specimen / Unknown 03/06/2023 9:06 PM EDT 03/06/2023 9:32 PM EDT Andi Richmond MD LAB POINT OF CARE TE ST DOCKED DEVICE UNSOLICITED RESULTS [facility] [address] [place] [phone] * (ABNORMAL) GLUCOSE METER, POINT OF CARE (03/06/2023 4:42 PM EDT) Glucose Meter 131(H) 70 - 120 mg/dL 03/06/2023 5:56 PM EDT [facility] Blood Whole blood specimen / Unknown 03/06/2023 4:42 PM EDT 03/06/2023 5:55 PM EDT Andi Richmond MD LAB POINT OF CARE TE ST DOCKED DEVICE UNSOLICITED RESULTS Performing Organization Address [facility] Phone Number [facility] [address] [place] [address] * GLUCOSE METER, POINT OF CARE (03/06/2023 11:26 AM EDT) Glucose Meter 114 70 - 120 mg/dL 03/06/2023 11:30 AM EDT [facility] Blood Whole blood specimen / Unknown 03/06/2023 11:26 AM EDT 03/06/2023 11:30 AM EDT Andi Richmond MD LAB POINT OF CARE TE ST DOCKED DEVICE UNSOLICITED RESULTS Performing Organization Address [facility] Phone Number [facility] [address] [place] [address] * GLUCOSE METER, POINT OF CARE (03/06/2023 7:36 AM EDT) Glucose Meter 86 70 - 120 mg/dL 03/06/2023 8:01 AM EDT [facility] Blood Whole blood specimen / Unknown 03/06/2023 7:36 AM EDT 03/06/2023 8:01 AM EDT Andi Richmond MD LAB POINT OF CARE TE ST DOCKED DEVICE UNSOLICITED RESULTS Performing Organization Address [facility] Phone Number [facility] [address] [place] [address] * CALCIUM, IONIZED (03/06/2023 5:51 AM EDT) Calcium, Ionized 1.16 1.13 - 1.32 mmol/L 03/06/2023 8:00 AM EDT LABORATORY [facility] Comment:This test was develo ped and its performance characteristics dtermined by [employer]. It has not been cleared or approved by the [place] Food and Drug Administration Blood Venous blood specimen / Unknown Venipuncture / Unknown 03/06/2023 5:51 AM EDT 03/06/2023 6:05 AM EDT Scarlett Bacon PA-C LAB BLOOD ORDERA BLES LABORATORY [address] [address] * (ABNORMAL) CBC (03/06/2023 5:50 AM EDT) Pathologist [facility] WBC 10.37 4.00 - 10.80 K/uL 03/06/2023 6:07 AM EDT LABORATORY [facility] RBC 3.46 3.85 - 5.15 M/uL 03/06/2023 6:07 AM EDT LABORATORY [facility] HGB 9.5(L) 12.0 - 15.3 g/dL 03/06/2023 6:07 AM EDT LABORATORY [facility] HCT 30.1(L) 36.0 - 45.2 % 03/06/2023 6:07 AM EDT LABORATORY [facility] MCV 87.0 81.5 - 97.5 fL 03/06/2023 6:07 AM EDT LABORATORY [facility] MCH 27.5 27.0 - 34.0 pg 03/06/2023 6:07 AM EDT LABORATORY [facility] MCHC 31.6 32.0 - 36.0 g/dL 03/06/2023 6:07 AM EDT LABORATORY [facility] RDW 15.9 11.5 - 15.5 % 03/06/2023 6:07 AM EDT LABORATORY [facility] PLT 100(L) 140 - 400 K/uL 03/06/2023 6:07 AM EDT LABORATORY [facility] MPV 12.8 6.6 - 11.1 fL 03/06/2023 6:07 AM EDT LABORATORY [facility] nRBCs 0 <=0 /100 WBCs 03/06/2023 6:07 AM EDT LABORATORY [facility] Blood Venous blood specimen / Unknown Venipuncture / Unknown 03/06/2023 5:50 AM EDT 03/06/2023 6:05 AM EDT Scarlett Bacon PA-C LAB BLOOD ORDERA BLES LABORATORY [address] [address] * PHOSPHORUS (03/06/2023 5:50 AM EDT) Phosphorus 3.1 2.5 - 4.8 mg/dL 03/06/2023 6:32 AM EDT LABORATORY [facility] Blood Venous blood specimen / Unknown Venipuncture / Unknown 03/06/2023 5:50 AM EDT 03/06/2023 6:05 AM EDT Scarlett Bacon PA-C LAB BLOOD ORDERA BLES Performing Organization Address [facility]/ZIP Co de Phone Number LABORATORY [address] [address] * MAGNESIUM (03/06/2023 5:50 AM EDT) Magnesium 2.4 1.5 - 2.6 mg/dL 03/06/2023 6:32 AM EDT LABORATORY [facility] Blood Venous blood specimen / Unknown Venipuncture / Unknown 03/06/2023 5:50 AM EDT 03/06/2023 6:05 AM EDT Scarlett Bacon PA-C LAB BLOOD ORDERA BLES Performing Organization Address [facility]/ZIP Co de Phone Number LABORATORY [address] [address] * (ABNORMAL) BASIC METABOLIC PANEL (03/06/2023 5:50 AM EDT) BUN 41(H) 6 - 20 mg/dL 03/06/2023 6:32 AM EDT LABORATORY [facility] Creatinine 1.8(H) 0.5 - 1.0 mg/dL 03/06/2023 6:32 AM EDT LABORATORY [facility] Estimated Glomerular Filtration Rate 30(L) >=60 mL/min 03/06/2023 6:32 AM EDT LABORATORY [facility] Comment:eGFR is calculated b ased on the CKD-EPI 2020 equation Sodium 136 135 - 146 mmol/L 03/06/2023 6:32 AM EDT LABORATORY [facility] Potassium 3.9 3.5 - 5.1 mmol/L 03/06/2023 6:32 AM EDT LABORATORY [facility] Chloride 103 98 - 107 mmol/L 03/06/2023 6:32 AM EDT LABORATORY [facility] CO2 24 22 - 32 mmol/L 03/06/2023 6:32 AM EDT LABORATORY [facility] Anion Gap 9 7 - 15 mmol/L 03/06/2023 6:32 AM EDT LABORATORY [facility] Glucose 99 70 - 120 mg/dL 03/06/2023 6:32 AM EDT LABORATORY [facility] Calcium 8.2(L) 8.4 - 10.2 mg/dL 03/06/2023 6:32 AM EDT LABORATORY [facility] Blood Venous blood specimen / Unknown Venipuncture / Unknown 03/06/2023 5:50 AM EDT 03/06/2023 6:05 AM EDT Scarlett Bacon PA-C LAB BLOOD ORDERA BLES Performing Organization Address City/[facility] Co de Phone Number LABORATORY [facility] [address] [place] [phone] * EKG (03/06/2023 3:27 AM EDT) 03/06/2023 3:27 AM EDT Procedure Note Rylee Ilene Zuleika, DO - 03/06/2023 3:27 AM EDT REASON FOR STUDY: rhythm change CONCLUSIONS: Atrial fibrillation with rapid ventricular response Abnormal ECG When compared with ECG of 03-MAR-2023 15:27, Atrial fibrillation has replaced Sinus rhythm Ventricular Rate: 116 QRS Duration: 104 QT/QTc: 280/389 ms P-R-T [place]: 0 : 33 : 46 degrees Juan Carlos Ackerman PA-C EKG Performing Organization Address City/[facility]/ZIP Co de Phone Number [facility] * GLUCOSE METER, POINT OF CARE (03/05/2023 9:25 PM EDT) [facility] Glucose Meter 109 70 - 120 mg/dL 03/05/2023 10:22 PM EDT [facility] Blood Whole blood specimen / Unknown 03/05/2023 9:25 PM EDT 03/05/2023 10:22 PM EDT Nigel Washington MD LAB POINT OF CARE TEST DOCKED DEVICE UNSOLICITED RESULTS Performing Organization Address [facility] Co de Phone Number [facility] [address] [place] [address] * GLUCOSE METER, POINT OF CARE (03/05/2023 4:29 PM EDT) Glucose Meter 93 70 - 120 mg/dL 03/05/2023 4:36 PM EDT [facility] Blood Whole blood specimen / Unknown 03/05/2023 4:29 PM EDT 03/05/2023 4:36 PM EDT Nigel Washington MD LAB POINT OF CARE TEST DOCKED DEVICE UNSOLICITED RESULTS Performing Organization Address [facility] de Phone Number [facility] [address] [place] [address] * XR KNEE 1-2 VIEWS (03/05/2023 2:02 PM EDT) Anatomical Region Laterality Modality Knee, Lower Extremity Digital Ra diography 03/05/2023 1:51 PM EDT Impressions 03/05/2023 2:25 PM EDT IMPRESSION: 1. Severe degenerative changes. No definite cortical disruption appreciated. 2. Soft tissue swelling and joint effusion 3. If further imaging is required based on clinical criteria consider CT. THIS DOCUMENT HAS BEEN ELECTRONICALLY SIGNED BY HUSSAIN MABRY MD Narrative 03/05/2023 2:25 PM EDT PROCEDURE INFORMATION: Exam: XR Right Knee Exam [...] Soft tissues: There is soft tissue swelling. Procedure Note Hussain Mabry MD - 03/05/2023 PROCEDURE INFORMATION: Exam: XR Right Knee Exam [...] joint, predominantly involving the medial and patellofemoral jointcompartment.There are marginal osteophytes present. Extensive sclerosis is present atarticular surfaces. A suprapatellar joint effusion is present. Soft tissues: There is soft tissue swelling. IMPRESSION IMPRESSION: 1. Severe degenerative changes. No definite cortical disruptionappreciated. 2. Soft tissue swelling and joint effusion 3. If further imaging is required based on clinical criteria considerCT. THIS DOCUMENT HAS BEEN ELECTRONICALLY SIGNED BY HUSSAIN MABRY MD Carl Adrian MD RADIOLOGY ([facility]) * GLUCOSE METER, POINT OF CARE (03/05/2023 11:58 AM EDT) Glucose Meter 94 70 - 120 mg/dL 03/05/2023 12:03 PM EDT [facility] Blood Whole blood specimen / Unknown 03/05/2023 11:58 AM EDT 03/05/2023 12:03 PM EDT Carl Adrian MD LAB POINT OF CARE TE ST DOCKED DEVICE UNSOLICITED RESULTS [facility] [address] [place] [address] * GLUCOSE METER, POINT OF CARE (03/05/2023 7:32 AM EDT) Glucose Meter 96 70 - 120 mg/dL 03/05/2023 7:37 AM EDT [facility] Blood Whole blood specimen / Unknown 03/05/2023 7:32 AM EDT 03/05/2023 7:37 AM EDT Carl Adrian MD LAB POINT OF CARE TE ST DOCKED DEVICE UNSOLICITED RESULTS Performing Organization Address [facility] Co de Phone Number [facility] [address] [place] [address] * (ABNORMAL) CALCIUM, IONIZED (03/05/2023 5:27 AM EDT) Calcium, Ionized 1.10(L) 1.13 - 1.32 mmol/L 03/05/2023 6:15 AM EDT LABORATORY [facility] Comment:This test was develo ped and its performance characteristics dtermined by [employer]. It has not been cleared or approved by the [place] Food and Drug Administration Blood Venous blood specimen / Unknown Venipuncture / Unknown 03/05/2023 5:27 AM EDT 03/05/2023 5:32 AM EDT Scarlett Bacon PA-C LAB BLOOD ORDERA BLES Performing Organization Address [facility] Co de Phone Number LABORATORY [address] [phone] * (ABNORMAL) CBC (03/05/2023 5:27 AM EDT) WBC 11.42(H) 4.00 - 10.80 K/uL 03/05/2023 5:58 AM EDT LABORATORY [facility] RBC 3.18 3.85 - 5.15 M/uL 03/05/2023 5:58 AM EDT LAB[facility]ATORY [facility] HGB 8.8(L) 12.0 - 15.3 g/dL 03/05/2023 5:58 AM EDT LABORATORY [facility] HCT 27.8(L) 36.0 - 45.2 % 03/05/2023 5:58 AM EDT LABORATORY [facility] MCV 87.4 81.5 - 97.5 fL 03/05/2023 5:58 AM EDT LABORATORY [facility] MCH 27.7 27.0 - 34.0 pg 03/05/2023 5:58 AM EDT LABORATORY [facility] MCHC 31.7 32.0 - 36.0 g/dL 03/05/2023 5:58 AM EDT LABORATORY [facility] RDW 15.8 11.5 - 15.5 % 03/05/2023 5:58 AM EDT LABORATORY [facility] PLT 87(L) 140 - 400 K/uL 03/05/2023 5:58 AM EDT LABORATORY [facility] MPV 12.3 6.6 - 11.1 fL 03/05/2023 5:58 AM EDT LABORATORY [facility] nRBCs 0 <=0 /100 WBCs 03/05/2023 5:58 AM EDT LABORATORY [facility] Blood Venous blood specimen / Unknown Venipuncture / Unknown 03/05/2023 5:27 AM EDT 03/05/2023 5:32 AM EDT Scarlett Bacon PA-C LAB BLOOD ORDERA BLES LABORATORY [address] [phone] * PHOSPHORUS (03/05/2023 5:27 AM EDT) Phosphorus 3.5 2.5 - 4.8 mg/dL 03/05/2023 5:56 AM EDT LABORATORY [facility] Blood Venous blood specimen / Unknown Venipuncture / Unknown 03/05/2023 5:27 AM EDT 03/05/2023 5:32 AM EDT Scarlett Bacon PA-C LAB BLOOD ORDERA BLES LABORATORY [address] [address] * MAGNESIUM (03/05/2023 5:27 AM EDT) Magnesium 2.4 1.5 - 2.6 mg/dL 03/05/2023 5:56 AM EDT LABORATORY [facility] Blood Venous blood specimen / Unknown Venipuncture / Unknown 03/05/2023 5:27 AM EDT 03/05/2023 5:32 AM EDT Scarlett Bacon PA-C LAB BLOOD ORDERA BLES LABORATORY GL [address] [place] [address] * (ABNORMAL) BASIC METABOLIC PANEL (03/05/2023 5:27 AM EDT) BUN 43(H) 6 - 20 mg/dL 03/05/2023 5:56 AM EDT LABORATORY [facility] Creatinine 2.0(H) 0.5 - 1.0 mg/dL 03/05/2023 5:56 AM EDT LABORATORY [facility] Estimated Glomerular Filtration Rate 26(L) >=60 mL/min 03/05/2023 5:56 AM EDT LABORATORY [facility] Comment:eGFR is calculated b ased on the CKD-EPI 2020 equation Sodium 137 135 - 146 mmol/L 03/05/2023 5:56 AM EDT LABORATORY [facility] Potassium 4.1 3.5 - 5.1 mmol/L 03/05/2023 5:56 AM EDT LABORATORY [facility] Chloride 104 98 - 107 mmol/L 03/05/2023 5:56 AM EDT LAB[facility]ATORY [facility] CO2 24 22 - 32 mmol/L 03/05/2023 5:56 AM EDT LABORATORY [facility] Anion Gap 9 7 - 15 mmol/L 03/05/2023 5:56 AM EDT LABORATORY [facility] Glucose 101 70 - 120 mg/dL 03/05/2023 5:56 AM EDT LABORATORY [facility] Calcium 7.7(L) 8.4 - 10.2 mg/dL 03/05/2023 5:56 AM EDT LABORATORY [facility] Blood Venous blood specimen / Unknown Venipuncture / Unknown 03/05/2023 5:27 AM EDT 03/05/2023 5:32 AM EDT Scarlett Bacon PA-C LAB BLOOD ORDERA BLES Performing Organization Address City/[facility]/ZIP Co de Phone Number LABORATORY GL [address] [place] [address] * GLUCOSE METER, POINT OF CARE (03/04/2023 9:21 PM EDT) Glucose Meter 105 70 - 120 mg/dL 03/04/2023 9:24 PM EDT [facility] Blood Whole blood specimen / Unknown 03/04/2023 9:21 PM EDT 03/04/2023 9:24 PM EDT Carl Adrian MD LAB POINT OF CARE TE ST DOCKED DEVICE UNSOLICITED RESULTS Performing Organization Address City/[facility]/ZIP Co de Phone Number [facility] [address] [place] [address] * CULTURE, BLOOD (03/04/2023 5:15 PM EDT) Blood Culture Growth No growth 03/09/2023 6:01 PM EDT LABORATORY [facility] Blood Venous blood specimen / Unknown Venipuncture / Unknown 03/04/2023 5:15 PM EDT 03/04/2023 5:18 PM EDT Carl Adrian MD LAB MICRO - GENERAL ORDERABLES Performing Organization Address City/[facility]/ZIP Co de Phone Number LABORATORY GL [address] [place] [address] * GLUCOSE METER, POINT OF CARE (03/04/2023 4:28 PM EDT) Glucose Meter 114 70 - 120 mg/dL 03/04/2023 4:31 PM EDT [facility] Blood Whole blood specimen / Unknown 03/04/2023 4:28 PM EDT 03/04/2023 4:30 PM EDT Carl Adrian MD LAB POINT OF CARE TE ST DOCKED DEVICE UNSOLICITED RESULTS Performing Organization Address City/[facility] Co de Phone Number [facility] [address] [place] [phone] * GLUCOSE METER, POINT OF CARE (03/04/2023 11:10 AM EDT) Glucose Meter 90 70 - 120 mg/dL 03/04/2023 11:13 AM EDT [facility] Blood Whole blood specimen / Unknown 03/04/2023 11:10 AM EDT 03/04/2023 11:13 AM EDT Carl Adrian MD LAB POINT OF CARE TE ST DOCKED DEVICE UNSOLICITED RESULTS [facility] [address] [place] [address] * XR CHEST 1 VIEW (03/04/2023 9:48 AM EDT) Anatomical Region Laterality Modality Chest Digital Radiogra phy 03/04/2023 9:40 AM EDT Impressions 03/04/2023 10:02 AM EDT IMPRESSION: Small left pleural effusion with left basilar atelectasis versus pneumonia. THIS DOCUMENT HAS BEEN ELECTRONICALLY SIGNED BY JOSEPH WILKINS MD Narrative 03/04/2023 10:02 AM EDT PROCEDURE INFORMATION: Exam: XR Chest Exam date and time: 03/04/2023 9:40 AM Age: 72 years old Clinical indication: Other: Comparison; Cough TECHNIQUE: Imaging protocol: Radiologic exam of the chest. Views: 1 view. COMPARISON: DX XR CHEST 2 VIEWS 03/02/2023 6:51 PM FINDINGS: Lungs: Left basilar airspace opacity. Pleural spaces: Blunting of the left costophrenic angle. No pneumothorax. Heart/Mediastinum: Borderline cardiomegaly. Bones/joints: Degenerative osseous changes. Procedure Note Joseph Wilkins MD - 03/04/2023 PROCEDURE INFORMATION: Exam: XR Chest Exam date and time: 03/04/2023 9:40 AM Age: 72 years old Clinical indication: Other: Comparison; Cough TECHNIQUE: Imaging protocol: Radiologic exam of the chest. Views: 1 view. COMPARISON: DX XR CHEST 2 VIEWS 03/02/2023 6:51 PM FINDINGS: Lungs: Left basilar airspace opacity. Pleural spaces: Blunting of the left costophrenic angle. No pneumothorax. Heart/Mediastinum: Borderline cardiomegaly. Bones/joints: Degenerative osseous changes. IMPRESSION IMPRESSION: Small left pleural effusion with left basilar atelectasis versuspneumonia. THIS DOCUMENT HAS BEEN ELECTRONICALLY SIGNED BY JOSEPH WILKINS MD Carl Adrian MD RADIOLOGY ([facility]) * GLUCOSE METER, POINT OF CARE (03/04/2023 7:17 AM EDT) Glucose Meter 93 70 - 120 mg/dL 03/04/2023 7:19 AM EDT [facility] Blood Whole blood specimen / Unknown 03/04/2023 7:17 AM EDT 03/04/2023 7:19 AM EDT Carl Adrian MD LAB POINT OF CARE TE ST DOCKED DEVICE UNSOLICITED RESULTS Performing Organization Address [facility] Co de Phone Number [facility] [address] [place] [phone] * (ABNORMAL) CALCIUM, IONIZED (03/04/2023 5:49 AM EDT) Calcium, Ionized 1.05(L) 1.13 - 1.32 mmol/L 03/04/2023 6:29 AM EDT LABORATORY [facility] Comment:This test was develo ped and its performance characteristics dtermined by [employer]. It has not been cleared or approved by the [place] Food and Drug Administration Blood Venous blood specimen / Unknown Venipuncture / Unknown 03/04/2023 5:49 AM EDT 03/04/2023 5:53 AM EDT Scarlett Bacon PA-C LAB BLOOD ORDERA BLES Performing Organization Address City/[facility]/ZIP Co de Phone Number LABORATORY [address] [address] * (ABNORMAL) CBC (03/04/2023 5:49 AM EDT) WBC 14.26(H) 4.00 - 10.80 K/uL 03/04/2023 6:00 AM EDT LABORATORY [facility] RBC 3.34 3.85 - 5.15 M/uL 03/04/2023 6:00 AM EDT LABORATORY [facility] HGB 9.2(L) 12.0 - 15.3 g/dL 03/04/2023 6:00 AM EDT LABORATORY GL HCT 29.3(L) 36.0 - 45.2 % 03/04/2023 6:00 AM EDT LABORATORY [facility] MCV 87.7 81.5 - 97.5 fL 03/04/2023 6:00 AM EDT LABORATORY GL MCH 27.5 27.0 - 34.0 pg 03/04/2023 6:00 AM EDT LABORATORY [facility] MCHC 31.4 32.0 - 36.0 g/dL 03/04/2023 6:00 AM EDT LABORATORY [facility] RDW 15.6 11.5 - 15.5 % 03/04/2023 6:00 AM EDT LABORATORY [facility] PLT 105(L) 140 - 400 K/uL 03/04/2023 6:00 AM EDT LABORATORY [facility] MPV 12.5 6.6 - 11.1 fL 03/04/2023 6:00 AM EDT LABORATORY [facility] nRBCs 0 <=0 /100 WBCs 03/04/2023 6:00 AM EDT LABORATORY [facility] Blood Venous blood specimen / Unknown Venipuncture / Unknown 03/04/2023 5:49 AM EDT 03/04/2023 5:53 AM EDT Scarlett Bacon PA-C LAB BLOOD ORDERA BLES Performing Organization Address City/State/[facility] Co de Phone Number LABORATORY [address] [address] * PHOSPHORUS (03/04/2023 5:49 AM EDT) Phosphorus 3.1 2.5 - 4.8 mg/dL 03/04/2023 6:50 AM EDT LABORATORY [facility] Blood Venous blood specimen / Unknown Venipuncture / Unknown 03/04/2023 5:49 AM EDT 03/04/2023 5:53 AM EDT Scarlett Bacon PA-C LAB BLOOD ORDERA BLES Performing Organization Address City/[facility]/ZIP Co de Phone Number LABORATORY [address] [place] [address] * MAGNESIUM (03/04/2023 5:49 AM EDT) Pathologist [facility] Magnesium 2.0 1.5 - 2.6 mg/dL 03/04/2023 6:50 AM EDT LABORATORY GL Blood Venous blood specimen / Unknown Venipuncture / Unknown 03/04/2023 5:49 AM EDT 03/04/2023 5:53 AM EDT Scarlett Bacon PA-C LAB BLOOD ORDERA BLES Performing Organization Address [facility] de Phone Number LABORATORY [address] [place], [place] [phone] * (ABNORMAL) BASIC METABOLIC PANEL (03/04/2023 5:49 AM EDT) Pathologist [facility] BUN 41(H) 6 - 20 mg/dL 03/04/2023 6:50 AM EDT LABORATORY GL Creatinine 2.1(H) 0.5 - 1.0 mg/dL 03/04/2023 6:50 AM EDT LABORATORY GL Estimated Glomerular Filtration Rate 24(L) >=60 mL/min 03/04/2023 6:50 AM EDT LABORATORY GLH Comment:eGFR is calculated b ased on the CKD-EPI 2020 equation Sodium 135 135 - 146 mmol/L 03/04/2023 6:50 AM EDT LABORATORY GLH Potassium 4.2 3.5 - 5.1 mmol/L 03/04/2023 6:50 AM EDT LABORATORY GLH Chloride 104 98 - 107 mmol/L 03/04/2023 6:50 AM EDT LABORATORY GLH CO2 20(L) 22 - 32 mmol/L 03/04/2023 6:50 AM EDT LABORATORY GLH Anion Gap 11 7 - 15 mmol/L 03/04/2023 6:50 AM EDT LABORATORY GLH Glucose 98 70 - 120 mg/dL 03/04/2023 6:50 AM EDT LABORATORY GLH Calcium 7.6(L) 8.4 - 10.2 mg/dL 03/04/2023 6:50 AM EDT LABORATORY [facility] Blood Venous blood specimen / Unknown Venipuncture / Unknown 03/04/2023 5:49 AM EDT 03/04/2023 5:53 AM EDT Scarlett Bacon PA-C LAB BLOOD ORDERA BLES Performing Organization Address City/[facility]/ZIP Co de Phone Number LABORATORY [facility] [address] [place] [address] * GLUCOSE METER, POINT OF CARE (03/03/2023 9:21 PM EDT) Glucose Meter 93 70 - 120 mg/dL 03/03/2023 9:24 PM EDT [facility] LABORAT[facility] Blood Whole blood specimen / Unknown 03/03/2023 9:21 PM EDT 03/03/2023 9:24 PM EDT Carl Adrian MD LAB POINT OF CARE TE ST DOCKED DEVICE UNSOLICITED RESULTS Performing Organization Address City/[facility]/ZIP Co de Phone Number [facility] LABORATORY [address] [place] [address] * (ABNORMAL) CBC (03/03/2023 4:13 PM EDT) WBC 19.91(H) 4.00 - 10.80 K/uL 03/03/2023 4:15 PM EDT LABORATORY [facility] RBC 3.63 3.85 - 5.15 M/uL 03/03/2023 4:15 PM EDT LABORATORY GL HGB 10.1(L) 12.0 - 15.3 g/dL 03/03/2023 4:15 PM EDT LABORATORY GL HCT 32.2(L) 36.0 - 45.2 % 03/03/2023 4:15 PM EDT LABORATORY GL MCV 88.7 81.5 - 97.5 fL 03/03/2023 4:15 PM EDT LABORATORY GL MCH 27.8 27.0 - 34.0 pg 03/03/2023 4:15 PM EDT LABORATORY GL MCHC 31.4 32.0 - 36.0 g/dL 03/03/2023 4:15 PM EDT LABORATORY [facility] RDW 15.5 11.5 - 15.5 % 03/03/2023 4:15 PM EDT LABORATORY [facility] PLT 122(L) 140 - 400 K/uL 03/03/2023 4:15 PM EDT LABORATORY [facility] MPV 12.6 6.6 - 11.1 fL 03/03/2023 4:15 PM EDT LABORATORY [facility] nRBCs 0 <=0 /100 WBCs 03/03/2023 4:15 PM EDT LABORATORY [facility] Blood Venous blood specimen / Unknown Venipuncture / Unknown 03/03/2023 4:13 PM EDT 03/03/2023 4:13 PM EDT Carl Adrian MD LAB BLOOD ORDERABLES Performing Organization Address City/[facility]/ZIP Co de Phone Number LABORATORY [address] [address] * CALCIUM, IONIZED, WHOLE BLOOD (03/03/2023 4:09 PM EDT) Calcium, Ionized, Whole Blood 1.14 1.13 - 1.32 mmol/L 03/03/2023 4:15 PM EDT LABORATORY [facility] Blood Venous blood specimen / Unknown Venipuncture / Unknown 03/03/2023 4:09 PM EDT 03/03/2023 4:12 PM EDT Carl Adrian MD LAB BLOOD ORDERABLES LABORATORY [address] [address] * MAGNESIUM (03/03/2023 4:09 PM EDT) Magnesium 1.7 1.5 - 2.6 mg/dL 03/03/2023 4:33 PM EDT LABORATORY [facility] Blood Venous blood specimen / Unknown Venipuncture / Unknown 03/03/2023 4:09 PM EDT 03/03/2023 4:13 PM EDT Carl Adrian MD LAB BLOOD ORDERABLES LABORATORY GL [address] [place] [address] * (ABNORMAL) BASIC METABOLIC PANEL (03/03/2023 4:09 PM EDT) BUN 41(H) 6 - 20 mg/dL 03/03/2023 4:33 PM EDT LABORATORY GLH Creatinine 2.3(H) 0.5 - 1.0 mg/dL 03/03/2023 4:33 PM EDT LABORATORY GLH Estimated Glomerular Filtration Rate 22(L) >=60 mL/min 03/03/2023 4:33 PM EDT LABORATORY GLH Comment:eGFR is calculated b ased on the CKD-EPI 2020 equation Sodium 135 135 - 146 mmol/L 03/03/2023 4:33 PM EDT LABORATORY GLH Potassium 4.7 3.5 - 5.1 mmol/L 03/03/2023 4:33 PM EDT LABORATORY GLH Chloride 104 98 - 107 mmol/L 03/03/2023 4:33 PM EDT LABORATORY GLH CO2 20(L) 22 - 32 mmol/L 03/03/2023 4:33 PM EDT LABORATORY GLH Anion Gap 11 7 - 15 mmol/L 03/03/2023 4:33 PM EDT LABORATORY GLH Glucose 130(H) 70 - 120 mg/dL 03/03/2023 4:33 PM EDT LABORATORY GLH Calcium 7.9(L) 8.4 - 10.2 mg/dL 03/03/2023 4:33 PM EDT LABORATORY GL[facility] Blood Venous blood specimen / Unknown Venipuncture / Unknown 03/03/2023 4:09 PM EDT 03/03/2023 4:13 PM EDT Carl Adrian MD LAB BLOOD ORDERABLES LABORATORY GL [address] [place] [address] * (ABNORMAL) GLUCOSE METER, POINT OF CARE (03/03/2023 3:36 PM EDT) Glucose Meter 123(H) 70 - 120 mg/dL 03/03/2023 3:44 PM EDT [facility] Blood Whole blood specimen / Unknown 03/03/2023 3:36 PM EDT 03/03/2023 3:43 PM EDT Carl Adrian MD LAB POINT OF CARE TE ST DOCKED DEVICE UNSOLICITED RESULTS Performing Organization Address [facility] Co de Phone Number [facility] [address] [place] [address] * EKG (03/03/2023 3:27 PM EDT) 03/03/2023 3:27 PM EDT Procedure Note Rylee Ilene To, DO - 03/03/2023 3:27 PM EDT REASON FOR STUDY: ekg changes CONCLUSIONS: Sinus tachycardia with 1st degree AV block with Premature atrialcomplexes Otherwise normal ECG When compared with ECG of 12-JUN-2022 09:44, Premature atrial complexes are now Present Vent. rate has increased BY 39 BPM Ventricular Rate: 118 Atrial Rate: 118 FL Interval: 224 QRS Duration: 88 QT/QTc: 326/456 ms P-R-T [place]: 50 : 43 : 51 degrees Juan Carlos Ackerman PA-C EKG Performing Organization Address [facility] Co de Phone Number [facility] * (ABNORMAL) GLUCOSE METER, POINT OF CARE (03/03/2023 12:08 PM EDT) Glucose Meter 123(H) 70 - 120 mg/dL 03/03/2023 12:11 PM EDT [facility] Blood Whole blood specimen / Unknown 03/03/2023 12:08 PM EDT 03/03/2023 12:11 PM EDT Carl Adrian MD LAB POINT OF CARE TE ST DOCKED DEVICE UNSOLICITED RESULTS Performing Organization Address [facility] Co de Phone Number [facility] [address] [place] [id number] * (ABNORMAL) CALCIUM, IONIZED, WHOLE BLOOD (03/03/2023 11:56 AM EDT) Calcium, Ionized, Whole Blood 1.05(L) 1.13 - 1.32 mmol/L 03/03/2023 12:04 PM EDT LABORATORY [facility] Blood Venous blood specimen / Unknown Venipuncture / Unknown 03/03/2023 11:56 AM EDT 03/03/2023 12:01 PM EDT Carl Adrian MD LAB BLOOD ORDERABLES LABORATORY [facility] [address] [place], [place] [id number] * XR RETROGRADE URETHROGRAM IN OR - TECH CHARGE (03/03/2023 10:55 AM EDT) Narrative Scheduling, Silent - 03/03/2023 10:57 AM EDT This procedure will not be read by a Radiologist. Please see operative note. Chris Aldridge Jr., MD RADIOLOGY (RAD GENERAL) * (ABNORMAL) CULTURE, URINE, QUANTITATIVE (03/03/2023 10:30 AM EDT) Pathologist [facility] Culture Growth >100,000 colonies/mL Escherichia coli(A) MICROBROTH DILUTIONS 03/06/2023 9:31 AM EDT LABORATORY [facility] Urine (Urine, Cystoscopy) 03/03/2023 10:30 AM EDT 03/03/2023 11:31 AM EDT Comment:Urine culture left u reter - need culture and sensitivity Organism Antibiotic Method Susceptibility Escherichia coli Ampicillin MICROBROTH DILUTIONS 4: Susceptible Escherichia coli Cefazolin MICROBROTH DILUTIONS <=4: Susceptible Escherichia coli Cefepime MICROBROTH DILUTIONS <=1: Susceptible Escherichia coli Ceftriaxone MICROBROTH DILUTIONS <=1: Susceptible Escherichia coli Ciprofloxacin MICROBROTH DILUTIONS <=0.25: Susceptible Comment:Due to peter us side effects, the FDA has advised against using Ciprofloxacin to treat uncomplicated UTIs and respiratory tract infections unless there are no alternative treatment options. Escherichia coli Gentamicin MICROBROTH DILUTIONS <=1: Susceptible Escherichia coli Nitrofurantoin MICROBROTH DILUTIONS <=16: Susceptible Escherichia coli Piperacillin Tazobactam MICROBROTH DI LUTIONS <=4: Susceptible Escherichia coli Trimeth/Sulfamethoxazole MICROBROTH D ILUTIONS <=20: Susceptible Chris Aldridge Jr., MD LAB MICRO - GE NERAL ORDERABLES Performing Organization Address [facility] Co de Phone Number LABORATORY [facility] [address] [place] [address] * LACTATE (03/03/2023 6:53 AM EDT) [facility] Lactate 1.7 0.4 - 2.0 mmol/L 03/03/2023 7:25 AM EDT LABORATORY [facility] Blood Venous blood specimen / Unknown Venipuncture / Unknown 03/03/2023 6:53 AM EDT 03/03/2023 7:06 AM EDT Cassy Salvador MD LAB BLOOD ORDERABLES Performing Organization Address [facility] de Phone Number LABORATORY [address] [address] * MRSA SCREEN, PCR (03/03/2023 6:25 AM EDT) [facility] MRSA PCR Result Negative Negative 2:18 PM EDT LABORATORY [facility] Comment:No Methicillin resis tant Staphylococcus aureus detected by PCR (amplified probe). Upper Respiratory (Nares, Bilateral) Non-blood Collection / Unknown 03/03/2023 6:25 AM EDT 03/03/2023 6:34 AM EDT Juan Carlos Ackerman PA-C LAB MICRO - GENERAL ORDERABLES Performing Organization Address [facility] de Phone Number LABORATORY [place] [address] [place] [address] * TSH WITH FREE T4 IF INDICATED (03/03/2023 6:03 AM EDT) [facility] TSH 2.12 0.27 - 4.20 uIU/mL 03/03/2023 11:21 AM EDT LABORATORY GL Blood Venous blood specimen / Unknown Venipuncture / Unknown 03/03/2023 6:03 AM EDT 03/03/2023 6:33 AM EDT Carl Adrian MD LAB BLOOD ORDERABLES Performing Organization Address City/[facility] Co de Phone Number LABORATORY [address] [address] * (ABNORMAL) DIFFERENTIAL, TECHNOLOGIST REVIEW (03/03/2023 6:03 AM EDT) WBC 29.75(H) 4.00 - 10.80 K/uL 03/03/2023 7:16 AM EDT LABORATORY [facility] Neutrophils % 98.0(H) 40.0 - 75.0 % 03/03/2023 7:16 AM EDT LABORATORY [facility] Monocytes % 2.0 1.0 - 11.0 % 03/03/2023 7:16 AM EDT LABORATORY [facility] Absolute Neutrophils 29.16(H) 1.80 - 7.70 K/uL 03/03/2023 7:16 AM EDT LABORATORY GL Absolute Monocytes 0.60 0.00 - 1.10 K/uL 03/03/2023 7:16 AM EDT LABORATORY [facility] [place] Cells Moderate( A) None Seen 03/03/2023 7:16 AM EDT LABORATORY [facility] Blood Venous blood specimen / Unknown Venipuncture / Unknown 03/03/2023 6:03 AM EDT 03/03/2023 6:33 AM EDT Juan Carlos Ackerman PA-C LAB BLOOD ORDERABLES LABORATORY [address] [address] * DIFFERENTIAL, AUTOMATED (03/03/2023 6:03 AM EDT) Blood Venous blood specimen / Unknown Venipuncture / Unknown 03/03/2023 6:03 AM EDT 03/03/2023 6:33 AM EDT Juan Carlos Ackerman PA-C LAB BLOOD ORDERABLES LABORATORY [facility] [address] [place] [address] * (ABNORMAL) CBC (03/03/2023 6:03 AM EDT) WBC 29.75(H) 4.00 - 10.80 K/uL 03/03/2023 7:13 AM EDT LABORATORY GL RBC 3.81 3.85 - 5.15 M/uL 03/03/2023 7:13 AM EDT LABORATORY GL HGB 10.5(L) 12.0 - 15.3 g/dL 03/03/2023 7:13 AM EDT LABORATORY GLH HCT 33.2(L) 36.0 - 45.2 % 03/03/2023 7:13 AM EDT LABORATORY GL MCV 87.1 81.5 - 97.5 fL 03/03/2023 7:13 AM EDT LABORATORY GL MCH 27.6 27.0 - 34.0 pg 03/03/2023 7:13 AM EDT LABORATORY GL MCHC 31.6 32.0 - 36.0 g/dL 03/03/2023 7:13 AM EDT LABORATORY [facility] RDW 15.3 11.5 - 15.5 % 03/03/2023 7:13 AM EDT LABORATORY GL PLT 139(L) 140 - 400 K/uL 03/03/2023 7:13 AM EDT LABORATORY GL MPV 13.2 6.6 - 11.1 fL 03/03/2023 7:13 AM EDT LABORATORY GL nRBCs 0 <=0 /100 WBCs 03/03/2023 7:13 AM EDT LABORATORY GL Blood Venous blood specimen / Unknown Venipuncture / Unknown 03/03/2023 6:03 AM EDT 03/03/2023 6:33 AM EDT Juan Carlos Ackerman PA-C LAB BLOOD ORDERABLES LABORATORY [facility] [address] [place], [place] [id number] * (ABNORMAL) BASIC METABOLIC PANEL (03/03/2023 6:03 AM EDT) BUN 38(H) 6 - 20 mg/dL 03/03/2023 6:54 AM EDT LABORATORY GLH Creatinine 2.5(H) 0.5 - 1.0 mg/dL 03/03/2023 6:54 AM EDT LABORATORY GLH Estimated Glomerular Filtration Rate 20(L) >=60 mL/min 03/03/2023 6:54 AM EDT LABORATORY GLH Comment:eGFR is calculated b ased on the CKD-EPI 2020 equation Sodium 138 135 - 146 mmol/L 03/03/2023 6:54 AM EDT LABORATORY GLH Potassium 4.3 3.5 - 5.1 mmol/L 03/03/2023 6:54 AM EDT LABORATORY GLH Chloride 106 98 - 107 mmol/L 03/03/2023 6:54 AM EDT LABORATORY GLH CO2 20(L) 22 - 32 mmol/L 03/03/2023 6:54 AM EDT LABORATORY GLH Anion Gap 12 7 - 15 mmol/L 03/03/2023 6:54 AM EDT LABORATORY GLH Glucose 103 70 - 120 mg/dL 03/03/2023 6:54 AM EDT LABORATORY GLH Calcium 7.5(L) 8.4 - 10.2 mg/dL 03/03/2023 6:54 AM EDT LABORATORY GL Blood Venous blood specimen / Unknown Venipuncture / Unknown 03/03/2023 6:03 AM EDT 03/03/2023 6:33 AM EDT Juan Carlos Ackerman PA-C LAB BLOOD ORDERABLES LABORATORY GL [address] [place] [address] * (ABNORMAL) HEMOGLOBIN A1C (03/03/2023 6:03 AM EDT) Hemoglobin A1C 6.0(H) 4.0 - 5.6 % 03/03/2023 2:27 PM EDT LABORATORY [facility] Comment:The use of HbA1c to monitor glycemic status is based on normal hemoglobin and HbA composition. This test should not be used in patients with abnormal hemoglobin that affects the half life of the red blood cell or the in vivo glycation rates. Estimated Average Glucose 126(H) <126 mg/dL 03/03/2023 2:27 PM EDT LABORATORY [facility] Blood Venous blood specimen / Unknown Venipuncture / Unknown 03/03/2023 6:03 AM EDT 03/03/2023 6:33 AM EDT Juan Carlos Ackerman PA-C LAB BLOOD ORDERABLES Performing Organization Address City/[facility]/ZIP Co de Phone Number LABORATORY [facility] [address] [place] [address] * (ABNORMAL) GLUCOSE METER, POINT OF CARE (03/03/2023 1:23 AM EDT) Glucose Meter 126(H) 70 - 120 mg/dL 03/03/2023 1:26 AM EDT [facility] LAB[facility] Blood Whole blood specimen / Unknown 03/03/2023 1:23 AM EDT 03/03/2023 1:26 AM EDT Carl Adrian MD LAB POINT OF CARE TE ST DOCKED DEVICE UNSOLICITED RESULTS Performing Organization Address [facility] Co de Phone Number [facility] LABORATORY [address] [place] [address] * (ABNORMAL) CULTURE, BLOOD (03/02/2023 7:23 PM EDT) Blood Culture Growth Both bottles of set Lactose fermenting gram negative bacilli(AA) 03/06/2023 10:01 AM EDT LABORATORY [facility] Comment:Refer to culture col lected the same day for complete identification and/or susceptibilities. Stain Description Anaerobic bottle Gram negative bacilli(AA) 03/06/2023 10:01 AM EDT LABORATORY GL Comment:This is an appended report. These results have been appended to a previously preliminary verified report. Stain Description Aerobic bottle Gram negative bacilli(AA) 03/06/2023 10:01 AM EDT LABORATORY GL Comment:This is an appended report. These results have been appended to a previously preliminary verified report. Blood Venous blood specimen / Unknown Venipuncture / Unknown 03/02/2023 7:23 PM EDT 03/02/2023 7:27 PM EDT Santo Devi DO LAB MICRO - G ENERAL ORDERABLES LABORATORY [facility] [address] [place] [address] [address] * (ABNORMAL) BLOOD CULTURE PCR IDENTIFICATION-ANAEROBIC (03/02/2023 7:20 PM EDT) Pathologist [facility] Escherichia coli DNA by PCR Positive(AA) Negative 03/03/2023 7:15 AM EDT LABORATORY [facility] CTX-M (Cephalosporin resistance gene) Negative Negative 03/03/2023 7:15 AM EDT LABORATORY GL IMP (Carbapenem resistance gene) Negative Negative 03/03/2023 7:15 AM EDT LABORATORY GL KPC (carbapenem-resist ance gene) Negative Negative 03/03/2023 7:15 AM EDT LABORATORY GL VIM (Carbapenem resistance gene) Negative Negative 03/03/2023 7:15 AM EDT LABORATORY GL OXA-48 (Carbapenem resistance gene) Negative Negative 03/03/2023 7:15 AM EDT LABORATORY GL NDM (Carbapenem resistance gene) Negative Negative 03/03/2023 7:15 AM EDT LABORATORY GL mcr-1 (Colistin resistance gene) Negative Negative 03/03/2023 7:15 AM EDT LABORATORY GL Comment Negative for all other bacterial targets and resistance genes. 03/03/2023 7:15 AM EDT LABORATORY GL Comment: This assay detects: Enterococcus faecalis,Enterococcus faecium, Listeria monocytogenes,Staphylococcus,Staphylococcus aureus,Staphylococcus epidermidis,Staphylococcus lugdunensis, Streptococcus,Streptococcus agalactiae, Streptococcus pneumoniae,Streptococcus pyogenes, Acinetobacter calcoaceticus-baumannii complex,Bacteriodes fragilis,Stenotrophomonas maltophilia,Enterobacteriaceae,Enterobacter cloacae complex,Escherichia coli, Klebsiella oxytoca,Klebsiella pneumoniae,Klebsiella aerogenes,Proteus, Serratia marcescens,Salmonella spp.,Haemophilus influenzae, Neisseria meningitidis, Pseudomonas aeruginosa,Angelique albicans,Angelique auris,Angelique glabrata,Angelique krusei,Angelique parapsilosis,Angelique tropicalis,Cryptococcus neoformans/william, KPC carbapenem resistance gene, mecA/C resistance gene,mecA/C MREJ (MRSA)resistance gene,Swati/B vancomycin resistance gene,VIM resistance gene, OXA-48-like resistance gene, NDM resistance gene,MCR-1 resistance gene, IMP resistance gene and CTX-M resistance gene. The validation of this specimen type for this assay was developed and performance characteristics determined by [employer]. It has not been cleared or approved by the U.S. Food and Drug Administration (FDA). The FDA has determined that such clearance or approval is not necessary. Blood Venous blood specimen / Unknown Venipuncture / Unknown 03/02/2023 7:20 PM EDT 03/02/2023 7:27 PM EDT Santo Devi DO LAB MICRO - G ENERAL [place] [address] * (ABNORMAL) CULTURE, BLOOD (03/02/2023 7:20 PM EDT) [facility] Blood Culture Growth Both bottles of set Escherichia coli(AA) MICROBROTH DILUTIONS 03/06/2023 10:01 AM EDT LABORATORY [facility] Stain Description Anaerobic bottle Gram negative bacilli(AA) 03/06/2023 10:01 AM EDT LABORATORY [facility] Comment:This is an appended report. These results have been appended to a previously preliminary verified report. Stain Description Aerobic bottle Gram negative bacilli(AA) 03/06/2023 10:01 AM EDT LABORATORY [facility] Comment:This is an appended report. These results have been appended to a previously preliminary verified report. Blood Venous blood specimen / Unknown Venipuncture / Unknown 03/02/2023 7:20 PM EDT 03/02/2023 7:27 PM EDT Organism Antibiotic Method Susceptibility Escherichia coli Ampicillin MICROBROTH DILUTIONS <=2: Susceptible Escherichia coli Cefepime MICROBROTH DILUTIONS <=1: Susceptible Escherichia coli Ceftriaxone MICROBROTH DILUTIONS <=1: Susceptible Escherichia coli Ciprofloxacin MICROBROTH DILUTIONS <=0.25: Susceptible Escherichia coli Gentamicin MICROBROTH DILUTIONS <=1: Susceptible Escherichia coli Piperacillin Tazobactam MICROBROTH DI LUTIONS <=4: Susceptible Escherichia coli Trimeth/Sulfamethoxazole MICROBROTH D ILUTIONS <=20: Susceptible Santo Scruggs Marito DO LAB MICRO - G ENERAL ORDERABLES LABORATORY [facility] [address] [place] [address] [address] * XR CHEST 2 VIEWS (03/02/2023 7:08 PM EDT) Anatomical Region Laterality Modality Chest Digital Radiogra phy 03/02/2023 6:51 PM EDT Impressions 03/02/2023 7:31 PM EDT IMPRESSION: No acute findings. THIS DOCUMENT HAS BEEN ELECTRONICALLY SIGNED BY FERDINAND GEORGE MD Narrative 03/02/2023 7:31 PM EDT PROCEDURE INFORMATION: Exam: XR Chest Exam date and time: 03/02/2023 6:51 PM Age: 72 years old Clinical indication: Other: Fell out of wheelchair, pain to lower extremities. Denies chest complaints. ; Additional info: Fever TECHNIQUE: Imaging protocol: Radiologic exam of the chest. Views: 2 views. COMPARISON: CR CHEST PA 06/12/2022 11:57 AM FINDINGS: Lungs: Unremarkable. No consolidation. Pleural spaces: Unremarkable. No pleural effusion. No pneumothorax. Heart/Mediastinum: Unremarkable. No cardiomegaly. Bones/joints: Moderate degenerative changes in the spine. Procedure Note Ferdinand George MD - 03/02/2023 PROCEDURE INFORMATION: Exam: XR Chest Exam date and time: 03/02/2023 6:51 PM Age: 72 years old Clinical indication: Other: Fell out of wheelchair, pain to lowerextremities. Denies chest complaints. ; Additional info: Fever TECHNIQUE: Imaging protocol: Radiologic exam of the chest. Views: 2 views. COMPARISON: CR CHEST PA 06/12/2022 11:57 AM FINDINGS: Lungs: Unremarkable. No consolidation. Pleural spaces: Unremarkable. No pleural effusion. No pneumothorax. Heart/Mediastinum: Unremarkable. No cardiomegaly. Bones/joints: Moderate degenerative changes in the spine. IMPRESSION IMPRESSION: No acute findings. THIS DOCUMENT HAS BEEN ELECTRONICALLY SIGNED BY FERDINAND GEORGE MD Santo Devi DO RADIOLOGY (RA D GENERAL) * XR HIP UNILAT 2-3 VIEWS INCLUDING AP PELVIS (03/02/2023 7:08 PM EDT) Anatomical Region Laterality Modality Lower Extremity, Hip, Pelvis Dig ital Radiography 03/02/2023 6:51 PM EDT Impressions 03/02/2023 7:35 PM EDT IMPRESSION: No acute findings. THIS DOCUMENT HAS BEEN ELECTRONICALLY SIGNED BY FERDINAND GEORGE MD Narrative 03/02/2023 7:35 PM EDT PROCEDURE INFORMATION: Exam: XR Right Hip Exam date and time: 03/02/2023 6:51 PM Age: 72 years old Clinical indication: Other: Fell out of wheelchair, pain to lower extremities. Denies chest complaints. ; Additional info: Fall, pain TECHNIQUE: Imaging protocol: Radiologic exam of the right hip. Views: 2 or 3 views hip with pelvis when performed. COMPARISON: CT L SPINE WO CONTRAST 03/02/2023 6:46 PM FINDINGS: Bones/joints: No acute fracture or dislocation in the right hip. Advanced degenerative changes in the visualized lumbar spine. Soft tissues: Unremarkable. Procedure Note Ferdinand George MD - 03/02/2023 PROCEDURE INFORMATION: Exam: XR Right Hip Exam date and time: 03/02/2023 6:51 PM Age: 72 years old Clinical indication: Other: Fell out of wheelchair, pain to lowerextremities. Denies chest complaints. ; Additional info: Fall, pain TECHNIQUE: Imaging protocol: Radiologic exam of the right hip. Views: 2 or 3 views hip with pelvis when performed. COMPARISON: CT L SPINE WO CONTRAST 03/02/2023 6:46 PM FINDINGS: Bones/joints: No acute fracture or dislocation in the right hip.Advanced degenerative changes in the visualized lumbar spine. Soft tissues: Unremarkable. IMPRESSION IMPRESSION: No acute findings. THIS DOCUMENT HAS BEEN ELECTRONICALLY SIGNED BY FERDINAND GEORGE MD Santo Devi DO RADIOLOGY (RA D GENERAL) * CT L SPINE WO CONTRAST (03/02/2023 6:58 PM EDT) Anatomical Region Laterality Modality Lspine, Spine, Vertebra Computed Tomography 03/02/2023 6:42 PM EDT Impressions 03/02/2023 7:42 PM EDT IMPRESSION 1. No evidence of traumatic injury or other convincing acute abnormality. Degenerative changes in the lumbar spine as described above, most advanced at L4-L5 and L5-S1 junctions, where there is severe spinal canal stenosis, narrowing of the lateral recesses, and severe bilateral neural foraminal narrowing with compression of the exiting nerve roots. Narrative 03/02/2023 7:[address] scan of the lumbar spine without contrast - 03/02/2023. HISTORY 72 years old female status post fall complaining of back pain. TECHNIQUE Spiral axial acquisition was performed through the lumbar spine; axial and reformatted sagittal and coronal images were reviewed in bone and soft tissue windows. COMPARISON Radiographs of the lumbar spine dated 12/27/2021. FINDINGS Normal alignment is maintained with preservation of lumbar lordosis. No evidence of fracture, subluxation, or destructive lesion is seen. Degenerative changes are present throughout the lumbar spine, most advanced at L4-L5 and L5-S1 junctions, where there is loss of disc height, vacuum disc phenomenon, endplate irregularities and sclerosis, marginal endplate osteophytes, diffuse disc bulging, facet arthropathy, and ligamentum flavum thickening with resultant severe spinal canal stenosis, narrowing of the lateral recesses, and severe bilateral neural foraminal narrowing with impingement of the exiting L4 and L5 nerve roots. Prespinal and paraspinal soft tissues are within normal limits. Atherosclerotic calcifications are present in the abdominal aorta and its branches. No additional significant abnormalities are detected in the imaged abdominal and pelvic structures. Procedure Note Yariel Raymond MD - 03/04/[address] scan of the lumbar spine without contrast - 03/02/2023. HISTORY 72 years old female status post fall complaining of back pain. TECHNIQUE Spiral axial acquisition was performed through the lumbar spine; axial andreformatted sagittal and coronal images were reviewed in bone and softtissue windows. COMPARISON Radiographs of the lumbar spine dated 12/27/2021. FINDINGS Normal alignment is maintained with preservation of lumbar lordosis. Noevidence of fracture, subluxation, or destructive lesion is seen.Degenerative changes are present throughout the lumbar spine, mostadvanced at L4-L5 and L5-S1 junctions, where there is loss of disc height,vacuum disc phenomenon, endplate irregularities and sclerosis, marginalendplate osteophytes, diffuse disc bulging, facet arthropathy, andligamentum flavum thickening with resultant severe spinal canal stenosis,narrowing of the lateral recesses, and severe bilateral neural foraminalnarrowing with impingement of the exiting L4 and L5 nerve roots.Prespinal and paraspinal soft tissues are within normal limits.Atherosclerotic calcifications are present in the abdominal aorta and itsbranches. No additional significant abnormalities are detected in theimaged abdominal and pelvic structures. IMPRESSION IMPRESSION 1. No evidence of traumatic injury or other convincing acuteabnormality. Degenerative changes in the lumbar spine as described above, most advancedat L4- L5 and L5-S1 junctions, where there is severe spinal canal stenosis,narrowing of the lateral recesses, and severe bilateral neural foraminalnarrowing with compression of the exiting nerve roots. Santo Devi DO RAD CT * CT ABD/PELVIS WO IV/ORAL CONTRAST (03/02/2023 6:58 PM EDT) Anatomical Region Laterality Modality Body, Abdomen, Pelvis Computed T omography 03/02/2023 6:46 PM EDT Impressions 03/02/2023 10:53 PM EDT IMPRESSION: 1. Edematous appearance of the left kidney with mild prominence of the left renal collecting system secondary to 2 obstructing calculi in the left renal pelvis measuring up to 1.1 and 0.7 cm respectively. 2. Colonic diverticulosis without diverticulitis. 3. Atherosclerotic vascular disease. THIS DOCUMENT HAS BEEN ELECTRONICALLY SIGNED BY FERDINAND GEORGE MD Narrative 03/02/2023 10:53 PM EDT PROCEDURE INFORMATION: Exam: CT Abdomen And Pelvis Without Contrast Exam date and time: 03/02/2023 6:46 PM Age: 72 years old Clinical indication: Abdominal pain; Additional info: Fall. Back pain TECHNIQUE: Imaging protocol: Computed tomography of the abdomen and pelvis without contrast. Radiation optimization: All CT scans at this facility use at least one of these dose optimization techniques: automated exposure control; mA and/or kV adjustment per patient size (includes targeted exams where dose is matched to clinical indication); or iterative reconstruction. REPORTING DATA: Count of CT and Cardiac NM exams in prior 12 months: This patient has received 0 known CTs and 0 known cardiac nuclear medicine studies in the 12 months prior to the current study. COMPARISON: US RENAL 12/16/2019 1:31 PM FINDINGS: Liver: Normal. No mass. Gallbladder and bile ducts: Normal. No calcified stones. No ductal dilation. Pancreas: Normal. No ductal dilation. Spleen: 2.4 cm simple splenic cyst. No splenomegaly. Adrenal glands: Normal. No mass. Kidneys and ureters: The left kidney is mildly edematous compared to the right with subtle adjacent perinephric fat stranding. Mild prominence of the left renal collecting system with 2 renal calculi within the left renal pelvis measuring 1.1 and 0.7 cm respectively. Right kidney is unremarkable. Stomach and bowel: Scattered diverticulosis of the colon without diverticulitis. No obstruction. No mucosal thickening. Appendix: No evidence of appendicitis. Intraperitoneal space: Unremarkable. No free air. No significant fluid collection. Vasculature: Atherosclerosis of the abdominal aorta and iliac arteries without aneurysm. Lymph nodes: Unremarkable. No enlarged lymph nodes. Urinary bladder: Bladder is decompressed limiting evaluation. Reproductive: Unremarkable as visualized. Bones/joints: Advanced degenerative changes in the lumbar spine. No acute fractures. No acute fracture. Soft tissues: Unremarkable. Procedure Note Ferdinand George MD - 03/02/2023 PROCEDURE INFORMATION: Exam: CT Abdomen And Pelvis Without Contrast Exam date and time: 03/02/2023 6:46 PM Age: 72 years old Clinical indication: Abdominal pain; Additional info: Fall. Back pain TECHNIQUE: Imaging protocol: Computed tomography of the abdomen and pelvis without contrast. Radiation optimization: All CT scans at this facility use at least one ofthese dose optimization techniques: automated exposure control; mA and/or kV adjustment per patient size (includes targeted exams where dose is matchedto clinical indication); or iterative reconstruction. REPORTING DATA: Count of CT and Cardiac NM exams in prior 12 months: This patient hasreceived 0 known CTs and 0 known cardiac nuclear medicine studies in the 12 monthsprior to the current study. COMPARISON: US RENAL 12/16/2019 1:31 PM FINDINGS: Liver: Normal. No mass. Gallbladder and bile ducts: Normal. No calcified stones. No ductaldilation. Pancreas: Normal. No ductal dilation. Spleen: 2.4 cm simple splenic cyst. No splenomegaly. Adrenal glands: Normal. No mass. Kidneys and ureters: The left kidney is mildly edematous compared to theright with subtle adjacent perinephric fat stranding. Mild prominence of theleft renal collecting system with 2 renal calculi within the left renal pelvis measuring 1.1 and 0.7 cm respectively. Right kidney is unremarkable. Stomach and bowel: Scattered diverticulosis of the colon without diverticulitis. No obstruction. No mucosal thickening. Appendix: No evidence of appendicitis. Intraperitoneal space: Unremarkable. No free air. No significant fluid collection. Vasculature: Atherosclerosis of the abdominal aorta and iliac arterieswithout aneurysm. Lymph nodes: Unremarkable. No enlarged lymph nodes. Urinary bladder: Bladder is decompressed limiting evaluation. Reproductive: Unremarkable as visualized. Bones/joints: Advanced degenerative changes in the lumbar spine. No acute fractures. No acute fracture. Soft tissues: Unremarkable. IMPRESSION IMPRESSION: 1. Edematous appearance of the left kidney with mild prominence of theleft renal collecting system secondary to 2 obstructing calculi in the leftrenal pelvis measuring up to 1.1 and 0.7 cm respectively. 2. Colonic diverticulosis without diverticulitis. 3. Atherosclerotic vascular disease. THIS DOCUMENT HAS BEEN ELECTRONICALLY SIGNED BY FERDINAND GEORGE MD Santo Devi DO RAD CT * (ABNORMAL) MICROSCOPIC EXAM, URINE (03/02/2023 6:37 PM EDT) RBC, Urine 03/02/2023 7:04 PM EDT LABORATORY GL Comment: Mathis obscured by WBCs. WBC, Urine 50+(A) 0 - 2 /HPF 03/02/2023 7:04 PM EDT LABORATORY GL Bacteria, Urine >200(A) 0 - 25 /HPF 03/02/2023 7:04 PM EDT LABORATORY GL Urine Urine specimen / Unknown Non-blood Collection / Unknown 03/02/2023 6:37 PM EDT 03/02/2023 6:40 PM EDT Santo Devi DO LAB URINE ORD ERABLES Performing Organization Address City/[facility]/ZIP Co de Phone Number LABORATORY [facility] [address] [place] [address] * (ABNORMAL) URINALYSIS, REFLEX TO MICROSCOPIC (03/02/2023 6:37 PM EDT) Color, Urine Yellow Light Yellow, Yellow, Dark Yellow 03/02/2023 6:47 PM EDT LABORATORY [facility] Clarity, Urine Cloudy(A) Clear 03/02/2023 6:47 PM EDT LABORATORY [facility] Glucose, Urine Negative Negative mg/dL 03/02/2023 6:47 PM EDT LABORATORY [facility] Bilirubin, Urine Small(A) Negative 03/02/2023 6:47 PM EDT LABORATORY [facility] Ketone, Urine Negative Negative mg/dL 03/02/2023 6:47 PM EDT LABORATORY [facility] Specific [place], Urine 1.017 1.003 - 1.030 03/02/2023 6:47 PM EDT LABORATORY [facility] Blood, Urine Large(A) Negative 03/02/2023 6:47 PM EDT LABORATORY [facility] pH, Urine 5.5 5.0 - 7.5 Units 03/02/2023 6:47 PM EDT LABORATORY [facility] Protein, Urine >=300(A) Negative mg/dL 03/02/2023 6:47 PM EDT LABORATORY [facility] Urobilinogen, Urine 1.0 0.2, 1.0 mg/dL 03/02/2023 6:47 PM EDT LABORATORY [facility] Nitrite, Urine Negative Negative 03/02/2023 6:47 PM EDT LABORATORY [facility] Esterase, Urine Large(A) Negative 03/02/2023 6:47 PM EDT LABORATORY [facility] Urine Urine specimen / Unknown Non-blood Collection / Unknown 03/02/2023 6:37 PM EDT 03/02/2023 6:40 PM EDT Santo Devi DO LAB URINE ORD ERABLES LABORATORY [address] [address] * EXTRA GREEN TOP WITH GEL (03/02/2023 5:54 PM EDT) Blood Venous blood specimen / Unknown 03/02/2023 5:54 PM EDT 03/02/2023 6:01 PM EDT Santo Scruggs Marito DO LAB BLOOD ORD ERABLES Performing Organization Address [facility] Co de Phone Number LABORATORY [address] [address] * EXTRA LIGHT BLUE TOP (03/02/2023 5:54 PM EDT) Blood Venous blood specimen / Unknown 03/02/2023 5:54 PM EDT 03/02/2023 6:01 PM EDT Santo Kael Marito DO LAB BLOOD ORD ERABLES Performing Organization Address [facility] de Phone Number LABORATORY [address] [address] * (ABNORMAL) LIPASE (03/02/2023 5:54 PM EDT) Lipase 10(L) 13 - 60 U/L 03/02/2023 6:18 PM EDT LABORATORY [facility] Blood Venous blood specimen / Unknown Venipuncture / Unknown 03/02/2023 5:54 PM EDT 03/02/2023 5:57 PM EDT Santobeverly Scruggs Marito DO LAB BLOOD ORD ERABLES Performing Organization Address City/[facility] de Phone Number LABORATORY [address] [address] * (ABNORMAL) LACTATE,WHOLE BLOOD (03/02/2023 5:54 PM EDT) Lactate, Whole Blood 2.4(H) 0.4 - 2.0 mmol/L 03/02/2023 6:02 PM EDT LABORATORY [facility] Blood Venous blood specimen / Unknown Venipuncture / Unknown 03/02/2023 5:54 PM EDT 03/02/2023 5:57 PM EDT Santo Kael Devi DO LAB BLOOD ORD ERABLES LABORATORY [facility] [address] [place] [address] * (ABNORMAL) COMPREHENSIVE METABOLIC PANEL (03/02/2023 5:54 PM EDT) BUN 32(H) 6 - 20 mg/dL 03/02/2023 6:18 PM EDT LABORATORY [facility] Creatinine 2.4(H) 0.5 - 1.0 mg/dL 03/02/2023 6:18 PM EDT LABORATORY [facility] Estimated Glomerular Filtration Rate 21(L) >=60 mL/min 03/02/2023 6:18 PM EDT LABORATORY [facility] Comment:eGFR is calculated b ased on the CKD-EPI 2020 equation Sodium 134(L) 135 - 146 mmol/L 03/02/2023 6:18 PM EDT LABORATORY [facility] Potassium 4.6 3.5 - 5.1 mmol/L 03/02/2023 6:18 PM EDT LABORATORY [facility] Chloride 100 98 - 107 mmol/L 03/02/2023 6:18 PM EDT LABORATORY [facility] CO2 25 22 - 32 mmol/L 03/02/2023 6:18 PM EDT LABORATORY [facility] Anion Gap 9 7 - 15 mmol/L 03/02/2023 6:18 PM EDT LABORATORY [facility] Glucose 122(H) 70 - 120 mg/dL 03/02/2023 6:18 PM EDT LABORATORY [facility] Albumin 3.1(L) 3.8 - 5.0 g/dL 03/02/2023 6:18 PM EDT LABORATORY [facility] AST 30 10 - 35 U/L 03/02/2023 6:18 PM EDT LABORATORY [facility] Alkaline Phosphatase 86 35 - 130 U/L 03/02/2023 6:18 PM EDT LABORATORY [facility] Bilirubin, Total 0.7 <=1.2 mg/dL 03/02/2023 6:18 PM EDT LABORATORY [facility] Calcium 8.7 8.4 - 10.2 mg/dL 03/02/2023 6:18 PM EDT LABORATORY [facility] Protein 6.6 6.0 - 8.3 g/dL 03/02/2023 6:18 PM EDT LABORATORY [facility] ALT 18 10 - 35 U/L 03/02/2023 6:18 PM EDT LABORATORY [facility] Blood Venous blood specimen / Unknown Venipuncture / Unknown 03/02/2023 5:54 PM EDT 03/02/2023 5:57 PM EDT Santo Devi DO LAB BLOOD ORD ERABLES LABORATORY [address] [address] * (ABNORMAL) CBC (03/02/2023 5:54 PM EDT) WBC 28.63(H) 4.00 - 10.80 K/uL 03/02/2023 6:00 PM EDT LABORATORY [facility] RBC 4.29 3.85 - 5.15 M/uL 03/02/2023 6:00 PM EDT LABORATORY [facility] HGB 12.0 12.0 - 15.3 g/dL 03/02/2023 6:00 PM EDT LABORATORY [facility] HCT 37.0 36.0 - 45.2 % 03/02/2023 6:00 PM EDT LABORATORY [facility] MCV 86.2 81.5 - 97.5 fL 03/02/2023 6:00 PM EDT LABORATORY [facility] MCH 28.0 27.0 - 34.0 pg 03/02/2023 6:00 PM EDT LABORATORY [facility] MCHC 32.4 32.0 - 36.0 g/dL 03/02/2023 6:00 PM EDT LABORATORY [facility] RDW 15.1 11.5 - 15.5 % 03/02/2023 6:00 PM EDT LABORATORY [facility] PLT 157 140 - 400 K/uL 03/02/2023 6:00 PM EDT LABORATORY [facility] MPV 11.4 6.6 - 11.1 fL 03/02/2023 6:00 PM EDT LABORATORY [facility] nRBCs 0 <=0 /100 WBCs 03/02/2023 6:00 PM EDT LABORATORY [facility] Blood Venous blood specimen / Unknown Venipuncture / Unknown 03/02/2023 5:54 PM EDT 03/02/2023 5:57 PM EDT Santo Devi DO LAB BLOOD ORD ERABLES LABORATORY [facility] [address] [place] [address] * RESPIRATORY PATHOGEN PANEL, PCR (03/02/2023 5:43 PM EDT) Pathologist [facility] Adenovirus by PCR Negative Negative 023 6:35 PM EDT LABORATORY [facility] Coronavirus 229E by PCR Negative Negative 03/02/2023 6:35 PM EDT LABORATORY [facility] Coronavirus HKU1 by PCR Negative Negative 03/02/2023 6:35 PM EDT LABORATORY [facility] Coronavirus NL63 by PCR Negative Negative 03/02/2023 6:35 PM EDT LABORATORY [facility] Coronavirus OC43 by PCR Negative Negative 03/02/2023 6:35 PM EDT LABORATORY [facility] Coronavirus SARS-CoV-2 by PCR Negative Negative 03/02/2023 6:35 PM EDT LABORATORY [facility] Human Metapneumovirus by PCR Negative Negative 03/02/2023 6:35 PM EDT LABORATORY [facility] Rhinovirus/Enterovi smith by PCR Negative Negative 03/02/2023 6:35 PM EDT LABORATORY [facility] Influenza A Virus by PCR Negative Negative 03/02/2023 6:35 PM EDT LABORATORY [facility] Influenza B Virus by PCR Negative Negative 03/02/2023 6:35 PM EDT LABORATORY [facility] Parainfluenza Virus 1 by PCR Negative Negative 03/02/2023 6:35 PM EDT LABORATORY [facility] Parainfluenza Virus 2 by PCR Negative Negative 03/02/2023 6:35 PM EDT LABORATORY [facility] Parainfluenza Virus 3 by PCR Negative Negative 03/02/2023 6:35 PM EDT LABORATORY [facility] Parainfluenza Virus 4 by PCR Negative Negative 03/02/2023 6:35 PM EDT LABORATORY [facility] Respiratory Syncytial Virus by PCR Negative Negative 03/02/2023 6:35 PM EDT LABORATORY [facility] Bordetella pertussis by PCR Negative Negative 03/02/2023 6:35 PM EDT LABORATORY [facility] Chlamydia pneumoniae by PCR Negative Negative 03/02/2023 6:35 PM EDT LABORATORY [facility] Mycoplasma pneumoniae by PCR Negative Negative 03/02/2023 6:35 PM EDT LABORATORY [facility] Bordetella parapertussis by PCR Negative Negative 03/02/2023 6:35 PM EDT LABORATORY [facility] Comment: The primers that detect Rhinovirus may cross react with some Enterorviruses. The validation of bronchial specimens, tracheal aspirates, and throats for this assay was developed and performance characteristics determined by [employer]. The validation of alternate specimen types has not been cleared or approved by the U.S. Food and Drug Administration (FDA). It has been determined that such clearance or approval is not necessary. Upper Respiratory Mid-turbinate nasal swab / Unknown Non-blood Collection / Unknown 03/02/2023 5:43 PM EDT 03/02/2023 5:46 PM EDT Santo Devi DO LAB MICRO - G ENERAL ORDERABLES Performing Organization Address City/State/[facility] Co de Phone Number LABORATORY [address] [address] documented in this encounter Visit Diagnoses Diagnosis Complicated UTI (urinary tract infection)- Primary Urinary tract infection, site not specified Septic shock (HCC) Unspecified septicemia Chest pain Chest pain, unspecified Kidney stone on left side Calculus of kidney Septic shock ([facility]) Unspecified septicemia RLS (restless legs syndrome) Restless legs syndrome (RLS) Morbid obesity due to excess calories ([facility]) HTN, goal below 130/80 Unspecified essential hypertension COPD, group C, by GOLD 2017 classification ([facility]) Gastroesophageal reflux disease without esophagitis Esophageal reflux Depression with anxiety Dysthymic disorder Hydronephrosis, left Hydronephrosis Type 2 diabetes mellitus with hemoglobin A1c goal of less than 7.0% ([facility]) documented in this encounter Administered Medications Inactive Administered Medications - up to 3 most recent administrations Medication Order MAR Action Action Date Dose Rate Site Acetaminophen (Tylenol) tab 650 mg 650 mg, Oral, ONCE, On 03/02/23 at 1800, For 1 dose, Maximum of 4 grams (4000 mg) per day. Given 03/02/2023 5:39 PM EDT 650 mg Acetaminophen (Tylenol) tab 650 mg 650 mg, Oral, Q4H PRN Pain, Mild, Headache, Fever >38C(100.5F), Starting on Thu03/03/23 at 1937, Until Thu03/09/23 at 1838, Maximum of 4 grams (4000 mg) per day. albuterol-ipratropium (Duoneb) inhalation solution 3 mL 3 mL, Nebulizer, Q6H PRN Dyspnea, Starting on Thu03/03/23 at 0727, Until Thu03/09/23 at 1838, 3 mL = 0.5 mg ipratropium/ 2.5 mg albuterol amitriptyline (Elavil) tab 10 mg 10 mg, Oral, QHS, First dose on Thu03/03/23 at 2200, Until Discontinued Given 03/08/2023 9:17 PM EDT 10 mg Given 03/07/2023 9:37 PM EDT 10 mg Given 03/06/2023 9:38 PM EDT 10 mg aspirin enteric coated tab 81 mg 81 mg, Oral, Daily(AM), First dose on Thu03/03/23 at 0900, Until Discontinued Given 03/09/2023 8:58 AM EDT 81 mg Given 03/08/2023 9:06 AM EDT 81 mg Given 03/07/2023 8:41 AM EDT 81 mg atorvaSTATin (Lipitor) tab 40 mg 40 mg, Oral, Daily(AM), First dose on Thu03/03/23 at 0900, Until Discontinued Given 03/09/2023 8:58 AM EDT 40 mg Given 03/08/2023 9:07 AM EDT 40 mg Given 03/07/2023 8:41 AM EDT 40 mg Baclofen (Lioresal) tab 10 mg 10 mg, Oral, HS, First dose on Thu03/04/23 at 2200, Until Discontinued Given 03/08/2023 9:17 PM EDT 10 mg Given 03/07/2023 9:37 PM EDT 10 mg Given 03/06/2023 9:39 PM EDT 10 mg buPROPion (Wellbutrin) tab 75 mg 75 mg, Oral, BID(AM/PM), First dose on Thu03/03/23 at 0900, Until Discontinued, [Therapeutic Interchange from Wellbutrin XL] Given 03/09/2023 8:58 AM EDT 75 mg Given 03/08/2023 9:17 PM EDT 75 mg Given 03/08/2023 9:07 AM EDT 75 mg calcium CHLORide 1,000 mg in D5W 100 mL ivpb 1,000 mg, IV Piggyback, ONCE, 1 dose, On Thu03/03/23 at 1315, Do not run through TPN line or with any phosphate containing solution 03/03/2023 12:58 PM EDT 1,000 mg 220 mL/hr calcium GLUConate 1000 mg in 50ml ivpb 1,000 mg, IV Piggyback, ONCE, 1 dose, On Thu03/04/23 at 0715 03/04/2023 6:41 AM EDT 1,000 mg 10 0 mL/hr calcium GLUConate 1000 mg in 50ml ivpb 1,000 mg, IV Piggyback, ONCE, 1 dose, On Thu03/05/23 at 0730 03/05/2023 10:05 AM EDT 1,000 mg 1 00 mL/hr cefTRIAXone in dextrose (Rocephin) IVPB 1 g IV Piggyback, 1 g, ONCE, 1 dose, On Thu03/02/23 at 2000, Administer over 30 Minutes 03/02/2023 7:36 PM EDT 1 g 100 mL/hr cefTRIAXone in dextrose (Rocephin) IVPB 2 g IV Piggyback, 2 g, Q24H, 10 doses, First dose on Thu03/05/23 at 0830, Last dose on Thu03/14/23 at 0830, Administer over 30 Minutes 03/09/2023 9:10 AM EDT 2 g 100 mL/hr 03/08/2023 10:26 AM EDT 2 g 100 mL/hr 03/07/2023 8:49 AM EDT 2 g 100 mL/hr chlorHEXIDINE (Periogard) 0.12 % oral rinse 15 mL 15 mL, Oral mucosal membrane, BID (799,1999), First dose on Thu03/03/23 at 0800, Until Discontinued, Include oral/gum/tooth brushing with medication. Use prepackaged oral kit suction tooth brush if available. Given 03/09/2023 9:04 AM EDT 15 mL Given 03/06/2023 8:56 AM EDT 15 mL Given 03/05/2023 9:31 PM EDT 15 mL dextrose 50 % inj 25 mL 25 mL, IV Push, PRN Hypoglycemia, Other, For blood glucose 54 - 69 mg/dL or 70 - 100 mg/dL with symptoms AND patient is unresponsive, NPO, OR unable to swallow, Starting on Thu03/03/23 at 0001, Until Thu03/09/23 at 1838, Administer IV. Recheck blood glucose after 15 minutes. Notify provider. dextrose 50 % inj 50 mL 50 mL, IV Push, PRN Hypoglycemia, Other, For blood glucose below 54 mg/dL AND patient unresponsive, NPO, OR unable to swallow, Starting on Thu03/03/23 at 0001, Until Thu03/09/23 at 1838, Administer IV. Recheck blood glucose in 15 minutes. Notify provider. Docusate Sodium (Colace) cap 100 mg 100 mg, Oral, Daily(AM), First dose on Thu03/03/23 at 0900, Until Discontinued, For oral administration ONLY, if route of administration is other than oral and alternative product must be ordered. Given 03/04/2023 7:56 AM EDT 100 mg Given 03/03/2023 12:07 PM EDT 100 mg Enoxaparin (Lovenox) inj 110 mg 110 mg (rounded from 108 mg = 1 mg/kg 108 kg), Subcutaneous, Q12H (1000,2200), First dose on Thu03/08/23 at 1300, Until Discontinued, If patient is on warfarin, inform provider if daily INR value is 2 or greater! Given 03/08/2023 9:18 PM EDT 110 mg Abdom en Left Lower Given 03/08/2023 1:20 PM EDT 110 mg Ab domen Left Lower fentaNYL (PF) inj 50 mcg 50 mcg, Intravenous, ONCE, On Thu03/02/23 at 2000, For 1 dose, When given IV Push its recommended that the dose be given over 3 to 5 minutes. Given 03/02/2023 7:30 PM EDT 50 mcg fentaNYL (PF) inj 50 mcg 50 mcg, IV Push, Q6H PRN Pain, Severe, Starting on Thu03/03/23 at 1542, Until Thu03/09/23 at 1838, When given IV Push its recommended that the dose be given over 3 to 5 minutes. Given 03/04/2023 4:54 PM EDT 50 mcg Given 03/03/2023 6:31 PM EDT 50 mcg fluticasone furoate-vilanterol (BREO ellipta) 100-25 MCG/ACT inhaler 1 Puff 1 Puff, Inhalation, Daily(AM), First dose on Thu03/03/23 at 0900, Until Discontinued Given 03/09/2023 7:36 AM EDT 1 Pu ff Given 03/08/2023 7:31 AM EDT 1 Puff Given 03/07/2023 7:27 AM EDT 1 Puff glucagon (Glucagen) inj 1 mg 1 mg, Intramuscular, PRN Hypoglycemia, Other, If patient is unresponsive, or NPO and has no IV access, Starting on Thu03/03/23 at 0001, Until Thu03/09/23 at 1838, NPO and no IV access with either 1) blood glucose less than 100 mg/dL and symptomatic OR 2) blood glucose less than 70 mg/dL and asymptomatic Glucose (Glutose 15) 40 % gel 15 g of glucose 15 g of glucose, Oral, PRN Hypoglycemia (low sugar), Other, For blood glucose 54 - 69 mg/dL or 70 - 100 mg/dL with symptoms AND patient alert WITH difficulty chewing/swallowing, Starting on Thu03/03/23 at 0001, Until Thu03/09/23 at 1838, Administer gel. Recheck blood glucose after 15 minutes. Notify provider. 37.5 gram tube = 15 grams glucose = 1 each Glucose (Glutose 15) 40 % gel 30 g of glucose 30 g of glucose, Oral, PRN Hypoglycemia (low sugar), Other, For blood glucose below 54 mg/dL AND patient alert WITH difficulty chewing/swallowing, Starting on Thu03/03/23 at 0001, Until Thu03/09/23 at 1838, Administer gel. Recheck blood glucose after 15 minutes. Notify provider. 37.5 gram tube = 15 grams glucose = 1 each glucose chew tab 16 g 16 g, Oral, PRN Hypoglycemia, Other, For blood glucose 54 - 69 mg/dL or 70 - 100 mg/dL with symptoms and patient alert without difficulty chewing/swallowing., Starting on Thu03/03/23 at 0001, Until Thu03/09/23 at 1838 hEParin inj 7,500 Units 7,500 Units, Subcutaneous, Q8H, First dose on Thu03/04/23 at 1400, Until Discontinued Given 03/08/2023 6:07 AM EDT 7,500 Units Abdomen Right Lower Given 03/07/2023 9:37 PM EDT 7,500 Units A bdomen Right Lower Given 03/07/2023 2:52 PM EDT 7,500 Units A bdomen Left Lower insulin aspart (NovoLOG) inj Subcutaneous, W/MEALS AND HS, First dose (after last modification) on Thu03/03/23 at 2200, Until Discontinued, MEDIUM DOSE (Usual starting dose): Sliding Scale Correctional insulin may be given if the patient is NPO. Dose based on standard build from Insulin Calculator. Do not modify insulin doses in administration instructions! , Glucose less than 70 instructions: Obtain STAT lab blood glucose and call covering provider., Glucose 80-150 (units): 0, Glucose 151-200 (units): 2, Glucose 201-250 (units): 4, Glucose 251-300 (units): 6, Glucose greater than 300 (units): 8, Glucose greater than 300 instructions: Give suggested insulin dose and call covering provider. Given 03/07/2023 9:37 PM EDT 2 Units Abdomen Right Lower isolyte-S pH 7.4 infusion Intravenous, at 150 mL/hr, Plasma-LYTE 148, isolyte-S, and isolyte-S pH 7.4 are considered equivalent - including for MAR barcode scanning., CONTINUOUS, Starting on Thu03/03/23 at 0800, Until Thu03/04/23 at 1646 New Bag 03/04/2023 11:17 AM EDT 150 mL/hr New Bag 03/04/2023 4:49 AM EDT 150 mL/hr New Bag 03/03/2023 9:59 PM EDT 150 mL/hr isolyte-S pH 7.4 infusion Intravenous, at 50 mL/hr, Plasma-LYTE 148, isolyte-S, and isolyte-S pH 7.4 are considered equivalent - including for MAR barcode scanning., CONTINUOUS, Starting on Thu03/04/23 at 1730, Until Thu03/05/23 at 1314 Restarted 03/05/2023 11:55 AM EDT 50 mL/hr New Bag 03/04/2023 7:20 PM EDT 50 mL/hr Continue on Pump 03/04/2023 4:59 PM EDT 50 mL/h r LORAzepam (Ativan) tab 0.5 mg 0.5 mg, Oral, Q8H PRN Anxiety, Starting on Thu03/02/23 at 2354, Until Thu03/09/23 at 1838 Given 03/04/2023 10:02 PM EDT 0.5 mg magnesium sulfate 1 g in d5w 100mL LOCKED DOSE 1 g, IV Piggyback, ONCE, 1 dose, On Thu03/03/23 at 1815, Administer over 60 Minutes New Bag 03/03/2023 6:11 PM EDT 1 g 100 mL/hr melatonin tab 6 mg 6 mg, Oral, HS PRN Insomnia, Starting on Thu03/04/23 at 2039, Until Thu03/09/23 at 1838 Given 03/04/2023 10:02 PM EDT 6 mg montelukast (Singulair) tab 10 mg 10 mg, Oral, Daily(AM), First dose on Thu03/03/23 at 0900, Until Discontinued Given 03/09/2023 8:58 AM EDT 10 mg Given 03/08/2023 9:07 AM EDT 10 mg Given 03/07/2023 8:41 AM EDT 10 mg NORepinephrine (Levophed) 4 mg in 250 ml D5W STANDARD CONCENTRATION 16 mcg/ml Central IV, 0-30 mcg/min (0-112.5 mL/hr), TITRATE, Starting on Thu03/02/23 at 2100, Until Thu03/03/23 at 1736 Rate Change 03/03/2023 11:12 AM EDT 2 mcg/min 7.5 mL/hr Rate Change 03/03/2023 11:01 AM EDT 4 mcg/min 15 mL/hr Rate Change 03/03/2023 10:56 AM EDT 6 mcg/min 22.5 mL/hr NSS 0.9% 1,000 mL bolus infusion Intravenous, at 1,000 mL/hr Administer over 60 Minutes, Wide open, This infusion may be completed in less than 1 hour, since it will be a wide open rate, ONCE, 1 dose, On Thu03/02/23 at 1800 New Bag 03/02/2023 5:38 PM EDT 1,000 mL 1000 mL/hr NSS 0.9% 1,000 mL bolus infusion Intravenous, at 1,000 mL/hr Administer over 60 Minutes, Wide open, This infusion may be completed in less than 1 hour, since it will be a wide open rate, ONCE, 1 dose, On Thu03/02/23 at 2000 New Bag 03/02/2023 8:08 PM EDT 1,000 mL 1000 mL/hr NSS 0.9% 1,000 mL bolus infusion Intravenous, at 1,000 mL/hr Administer over 60 Minutes, Wide open, This infusion may be completed in less than 1 hour, since it will be a wide open rate, ONCE, 1 dose, On Thu03/02/23 at 2100 New Bag 03/02/2023 9:40 PM EDT 1,000 mL 1000 mL/hr NSS 0.9% 1,000 mL bolus infusion Intravenous, at 1,000 mL/hr Administer over 60 Minutes, Administer entire volume within 60 minutes or less., ONCE, 1 dose, On Thu03/03/23 at 0745 Continue on Pump 03/03/2023 7:20 AM EDT 1000 mL/hr NSS infusion Intravenous, at 100 mL/hr, CONTINUOUS, Starting on Thu03/03/23 at 0030, Until Thu03/03/23 at 0728 Rate Verify 03/03/2023 6:22 AM EDT 100 mL/hr Restarted 03/03/2023 6:04 AM EDT 100 mL/hr Rate Verify 03/03/2023 1:09 AM EDT 100 mL/hr Oral Hygiene: Mouth Swab with dentifrice Oral, Q4H LIMITED (00;04;12;16), First dose on Thu03/03/23 at 0400, Until Discontinued, To be used with 1.5% hydrogen peroxide solution or 0.05% cetylpyridium chloride oral rinse Given 03/03/2023 5:10 PM EDT 1 Ki t Given 03/03/2023 12:18 PM EDT 1 Kit Given 03/03/2023 4:00 AM EDT oxyCODONE (Oxy IR) tab 5 mg 5 mg, Oral, Q4H PRN Pain, Moderate, Pain, Severe, Starting on Thu03/04/23 at 2022, Until Thu03/09/23 at 1838 Given 03/09/2023 3:17 AM EDT 5 mg Given 03/08/2023 6:23 PM EDT 5 mg Given 03/07/2023 6:25 AM EDT 5 mg pantoprazole (Protonix) tab 40 mg 40 mg, Oral, BID(AM/PM), First dose on Thu03/03/23 at 0900, Until Discontinued, This med should NOT be Crushed or Chewed Given 03/09/2023 8:58 AM EDT 40 mg Given 03/08/2023 9:17 PM EDT 40 mg Given 03/08/2023 9:06 AM EDT 40 mg piperacillin-tazobactam (ZOSYN) 4.5 g in D5W 100 mL (FOUR hour infusion) IV Piggyback, 4.5 g, Q8H, 15 doses, First dose on Thu03/03/23 at 0600, Last dose on Thu03/07/23 at 2200, Administer over 4 Hours, at 25 mL/hr New Bag 03/05/2023 5:57 AM EDT 4.5 g 25 mL/hr New Bag 03/04/2023 9:24 PM EDT 4.5 g 25 mL/hr New Bag 03/04/2023 1:49 PM EDT 4.5 g 25 mL/hr piperacillin-tazobactam in D5W (Zosyn) (HALF hour infusion) ivpb 4.5 g IV Piggyback, 4.5 g, ONCE, 1 dose, On Thu03/02/23 at 2345, Administer over 30 Minutes Restarted 03/03/2023 12:23 AM EDT 9 g/hr 200 mL/hr New Bag 03/02/2023 11:53 PM EDT 4.5 g 200 mL/hr Polyethylene Glycol 3350 (Miralax) oral powder 17 g 17 g (1 Packet), Oral, Daily(AM), First dose on Thu03/04/23 at 0900, Last dose on Thu03/06/23 at 0900, For 3 doses, Mix in 8 oz of water, juice, soda, coffee, or tea. Given 03/06/2023 8:56 AM EDT 17 g Given 03/05/2023 7:40 AM EDT 17 g Given 03/04/2023 9:32 AM EDT 17 g potassium chloride ER tab 10 mEq 10 mEq, Oral, BID(AM/PM), First dose on Thu03/03/23 at 0900, Until Discontinued Given 03/03/2023 12:07 PM EDT 10 mEq rOPINIRole (Requip) tab 3 mg 3 mg, Oral, ONCE, On Thu03/02/23 at 2215, For 1 dose Given 03/02/2023 10:08 PM EDT 3 mg rOPINIRole (Requip) tab 3 mg 3 mg, Oral, QHS, First dose (after last reorder) on Thu03/03/23 at 2200, Until Discontinued Given 03/08/2023 9:17 PM EDT 3 mg Given 03/07/2023 9:38 PM EDT 3 mg Given 03/06/2023 9:39 PM EDT 3 mg senna-docusate (Senokot-S) 1 Tablet 1 Tablet, Oral, Daily(AM), First dose on Thu03/04/23 at 0900, Until Discontinued Given 03/09/2023 8:58 AM EDT 1 Ta blet Given 03/08/2023 9:07 AM EDT 1 Tablet Given 03/07/2023 8:41 AM EDT 1 Tablet sodium chloride 0.9 % flush peripheral karen 3 mL 3 mL, IV Push, Q8H, First dose on Thu03/03/23 at 0600, Until Discontinued, Do not flush if lock, PICC, or central line not in place; IV infusing or unable to flush. Given 03/09/2023 6:00 AM EDT 3 mL Given 03/08/2023 10:00 PM EDT 3 mL Given 03/08/2023 2:00 PM EDT 3 mL umeclidinium [place] (INCRUSE ellipta) 62.5 MCG/ACT inhaler 1 Puff 1 Puff, Inhalation, Daily(AM), First dose on Thu03/03/23 at 0900, Until Discontinued Given 03/09/2023 7:36 AM EDT 1 Pu ff Given 03/08/2023 7:31 AM EDT 1 Puff Given 03/07/2023 7:27 AM EDT 1 Puff vancomycin (Vancocin) 2500 mg in NSS 500 mL ivpb 2,500 mg, IV Piggyback, ONCE, 1 dose, On Thu03/03/23 at 0200 Restarted 03/03/2023 6:04 AM EDT 1,000 mg/hr 220 mL/hr New Bag 03/03/2023 3:23 AM EDT 2,500 mg 220 mL/hr documented in this encounter Active and Recently Administered Medications Times are shown in EDT. Scheduled Medication Order 03/07/2023 03/08/2023 03/09/2023 amitriptyline (Elavil) tab 10 mg 10 mg, Oral, QHS, First dose on Thu03/03/23 at 2200, Until Discontinued 2136 (Given - Provider: Elvira Turner LPN) 2116 (Given - Provider: Elvira Turner LPN) aspirin enteric coated tab 81 mg 81 mg, Oral, Daily(AM), First dose on Thu03/03/23 at 0900, Until Discontinued 840 (Given - Provider: Michelle Mireles LPN) 09 (Given - Provider: Michelle Mireles LPN) 08 (Given - Provider: SN Shae) atorvaSTATin (Lipitor) tab 40 mg 40 mg, Oral, Daily(AM), First dose on Thu03/03/23 at 0900, Until Discontinued 840 (Given - Provider: Michelle Mireles LPN) 09 (Given - Provider: Michelle Mireles LPN) 0858 (Given - Provider: SN Shae) Baclofen (Lioresal) tab 10 mg 10 mg, Oral, HS, First dose on Thu03/04/23 at 2200, Until Discontinued 2136 (Given - Provider: Elvira Turner LPN) 2116 (Given - Provider: Elvira Turner LPN) buPROPion (Wellbutrin) tab 75 mg 75 mg, Oral, BID(AM/PM), First dose on Thu03/03/23 at 0900, Until Discontinued, [Therapeutic Interchange from Wellbutrin XL] 0841 (Given - Provider: Michelle Mireles LPN)2136 (Given - Provider: Elvira Turner LPN) 09 (Given - Provider: Michelle Mireles LPN)2116 (Given - Provider: Elvira Turner LPN) 0858 (Given - Provider: SN Shae) cefTRIAXone in dextrose (Rocephin) IVPB 2 g IV Piggyback, 2 g, Q24H, 10 doses, First dose on Petty 03/05/23 at 0830, Last dose on 03/14/23 at 0830, Administer over 30 Minutes 0849 (New Bag - Provider: Michelle Mireles LPN) 1026 (New Bag - Provider: Fallon Leigh RN) 0910 (New Bag - Provider: SN Shae)0940 (Stopped - Provider: Hillary Schumacher RN) chlorHEXIDINE (Periogard) 0.12 % oral rinse 15 mL 15 mL, Oral mucosal membrane, BID (799,1999), First dose on Thu03/03/23 at 0800, Until Discontinued, Include oral/gum/tooth brushing with medication. Use prepackaged oral kit suction tooth brush if available. 0841 (Not Given - Provider: Michelle Mireles LPN - Reason: Refused-Notify Provider)1999 (Not Given - Provider: Elvira Turner LPN - Reason: Refused-Notify Provider) 09 (Not Given - Provider: Michelle Mireles LPN - Reason: Refused-Notify Provider)1999 (Not Given - Provider: Elvira Turner LPN - Reason: Refused-Notify Provider) 0904 (Given - Provider: SN Shae) Enoxaparin (Lovenox) inj 110 mg 110 mg (rounded from 108 mg = 1 mg/kg 108 kg), Subcutaneous, Q12H (1000,2200), First dose on Thu03/08/23 at 1300, Until Discontinued, If patient is on warfarin, inform provider if daily INR value is 2 or greater! 1320 (Given - Provider: Michelle Mireles LPN)2118 (Given - Provider: Elvira Turner LPN) 1000 (Not Given - Provider: Hillary Schumacher RN - Reason: Refused-Notify Provider) fluticasone furoate-vilanterol (BREO ellipta) 100-25 MCG/ACT inhaler 1 Puff 1 Puff, Inhalation, Daily(AM), First dose on Thu03/03/23 at 0900, Until Discontinued 07 (Given - Provider: Ender Mohr, ZAY) 0731 (Given - Provider: Ender Mohr RRT) 0736 (Given - Provider: Ender Mohr RRT) hEParin inj 7,500 Units (CANCELED) 7,500 Units, Subcutaneous, Q8H, First dose on Thu03/04/23 at 1400, Until Discontinued 06 (Given - Provider: Elvira Turner LPN)1452 (Given - Provider: Michelle Mireles LPN)213 (Given - Provider: Elvira Turner LPN) 06 (Given - Provider: Elvira Turner LPN) insulin aspart (NovoLOG) inj Subcutaneous, W/MEALS AND HS, First dose (after last modification) on Thu03/03/23 at 2200, Until Discontinued, MEDIUM DOSE (Usual starting dose): Sliding Scale Correctional insulin may be given if the patient is NPO. Dose based on standard build from Insulin Calculator. Do not modify insulin doses in administration instructions! , Glucose less than 70 instructions: Obtain STAT lab blood glucose and call covering provider., Glucose 80-150 (units): 0, Glucose 151-200 (units): 2, Glucose 201-250 (units): 4, Glucose 251-300 (units): 6, Glucose greater than 300 (units): 8, Glucose greater than 300 instructions: Give suggested insulin dose and call covering provider. 0800 (Not Given - Provider: Michelle Mireles LPN - Reason: Parameter(s) Not Met)1200 (Not Given - Provider: Michelle Mireles LPN - Reason: Parameter(s) Not Met)1700 (Not Given - Provider: Michelle Mireles LPN - Reason: Parameter(s) Not Met)213 (Given - Provider: Elvira Turner LPN) 0800 (Not Given - Provider: Michelle Mireles LPN - Reason: Parameter(s) Not Met)1200 (Not Given - Provider: Michelle Mireles LPN - Reason: Parameter(s) Not Met)1700 (Not Given - Provider: Michelle Mireles LPN - Reason: Parameter(s) Not Met)2200 (No Insulin - Provider: Elvira Turner LPN - Reason: Parameter(s) Not Met) 0800 (No Insulin - Provider: SN Shae - Reason: Parameter(s) Not Met)1200 (No Insulin - Provider: SN Shae - Reason: Parameter(s) Not Met) montelukast (Singulair) tab 10 mg 10 mg, Oral, Daily(AM), First dose on Thu03/03/23 at 0900, Until Discontinued 08 (Given - Provider: Michelle Mireles LPN) 906 (Given - Provider: Michelle Mireles LPN) 08 (Given - Provider: SN Shae) pantoprazole (Protonix) tab 40 mg 40 mg, Oral, BID(AM/PM), First dose on Thu03/03/23 at 0900, Until Discontinued, This med should NOT be Crushed or Chewed 840 (Given - Provider: Michelle Mireles LPN)2137 (Given - Provider: Elvira Turner LPN) 905 (Given - Provider: Michelle Mireles LPN)2116 (Given - Provider: Elvira Turner LPN) 08 (Given - Provider: SN Shae) rOPINIRole (Requip) tab 3 mg 3 mg, Oral, QHS, First dose (after last reorder) on Thu03/03/23 at 2200, Until Discontinued 2137 (Given - Provider: Elvira Turner LPN) 2116 (Given - Provider: Elvira Turner LPN) senna-docusate (Senokot-S) 1 Tablet 1 Tablet, Oral, Daily(AM), First dose on Thu03/04/23 at 0900, Until Discontinued 08 (Given - Provider: Michelle Mireles LPN) 09 (Given - Provider: Michelle Mireles LPN) 0858 (Given - Provider: SN Shae) sodium chloride 0.9 % flush peripheral karen 3 mL 3 mL, IV Push, Q8H, First dose on Thu03/03/23 at 0600, Until Discontinued, Do not flush if lock, PICC, or central line not in place; IV infusing or unable to flush. 0600 (Given - Provider: Elvira Turner LPN)1400 (Given - Provider: Michelle Mireles LPN)2200 (Given - Provider: Elvira Turner LPN) 0600 (Given - Provider: Elvira Turner LPN)1400 (Given - Provider: Michelle Mireles LPN)2200 (Given - Provider: Elvira Turner LPN) 0600 (Given - Provider: Aubrie Washington LPN)1400 (Not Given - Provider: Hillary Schumacher RN - Reason: Parameter(s) Not Met - Comment: No IV site.) umeclidinium [place] (INCRUSE ellipta) 62.5 MCG/ACT inhaler 1 Puff 1 Puff, Inhalation, Daily(AM), First dose on Thu03/03/23 at 0900, Until Discontinued 07 (Given - Provider: Ender Mohr, ZAY) 0731 (Given - Provider: Ender Mohr, ZAY) 0736 (Given - Provider: Ender Mohr, ZAY) PRN Medication Order 03/07/2023 03/08/2023 03/09/2023 Acetaminophen (Tylenol) tab 650 mg 650 mg, Oral, Q4H PRN Pain, Mild, Headache, Fever >38C(100.5F), Starting on Thu03/03/23 at 1937, Until Thu03/09/23 at 1838, Maximum of 4 grams (4000 mg) per day. albuterol-ipratropium (Duoneb) inhalation solution 3 mL 3 mL, Nebulizer, Q6H PRN Dyspnea, Starting on Thu03/03/23 at 0727, Until Thu03/09/23 at 1838, 3 mL = 0.5 mg ipratropium/ 2.5 mg albuterol dextrose 50 % inj 25 mL 25 mL, IV Push, PRN Hypoglycemia, Other, For blood glucose 54 - 69 mg/dL or 70 - 100 mg/dL with symptoms AND patient is unresponsive, NPO, OR unable to swallow, Starting on Thu03/03/23 at 0001, Until Thu03/09/23 at 1838, Administer IV. Recheck blood glucose after 15 minutes. Notify provider. dextrose 50 % inj 50 mL 50 mL, IV Push, PRN Hypoglycemia, Other, For blood glucose below 54 mg/dL AND patient unresponsive, NPO, OR unable to swallow, Starting on Thu03/03/23 at 0001, Until Thu03/09/23 at 1838, Administer IV. Recheck blood glucose in 15 minutes. Notify provider. fentaNYL (PF) inj 50 mcg 50 mcg, IV Push, Q6H PRN Pain, Severe, Starting on Thu03/03/23 at 1542, Until Thu03/09/23 at 1838, When given IV Push its recommended that the dose be given over 3 to 5 minutes. glucagon (Glucagen) inj 1 mg 1 mg, Intramuscular, PRN Hypoglycemia, Other, If patient is unresponsive, or NPO and has no IV access, Starting on Thu03/03/23 at 0001, Until Thu03/09/23 at 1838, NPO and no IV access with either 1) blood glucose less than 100 mg/dL and symptomatic OR 2) blood glucose less than 70 mg/dL and asymptomatic Glucose (Glutose 15) 40 % gel 15 g of glucose 15 g of glucose, Oral, PRN Hypoglycemia (low sugar), Other, For blood glucose 54 - 69 mg/dL or 70 - 100 mg/dL with symptoms AND patient alert WITH difficulty chewing/swallowing, Starting on Thu03/03/23 at 0001, Until Thu03/09/23 at 1838, Administer gel. Recheck blood glucose after 15 minutes. Notify provider. 37.5 gram tube = 15 grams glucose = 1 each Glucose (Glutose 15) 40 % gel 30 g of glucose 30 g of glucose, Oral, PRN Hypoglycemia (low sugar), Other, For blood glucose below 54 mg/dL AND patient alert WITH difficulty chewing/swallowing, Starting on Thu03/03/23 at 0001, Until Thu03/09/23 at 1838, Administer gel. Recheck blood glucose after 15 minutes. Notify provider. 37.5 gram tube = 15 grams glucose = 1 each glucose chew tab 16 g 16 g, Oral, PRN Hypoglycemia, Other, For blood glucose 54 - 69 mg/dL or 70 - 100 mg/dL with symptoms and patient alert without difficulty chewing/swallowing., Starting on Thu03/03/23 at 0001, Until Thu03/09/23 at 1838 LORAzepam (Ativan) tab 0.5 mg 0.5 mg, Oral, Q8H PRN Anxiety, Starting on Thu03/02/23 at 2354, Until Thu03/09/23 at 1838 meclizine (Antivert) tab 12.5 mg 12.5 mg, Oral, TID PRN Dizziness, Starting on Thu03/02/23 at 2355, Until Thu03/09/23 at 1838 melatonin tab 6 mg 6 mg, Oral, HS PRN Insomnia, Starting on Thu03/04/23 at 2039, Until Thu03/09/23 at 1838 oxyCODONE (Oxy IR) tab 5 mg 5 mg, Oral, Q4H PRN Pain, Moderate, Pain, Severe, Starting on Thu03/04/23 at 2022, Until Thu03/09/23 at 1838 0625 (Given - Provider: Elvira Turner LPN) 1823 (Given - Provider: Michelle Mireles LPN) 0317 (Given - Provider: Aubrie Washington LPN) documented in this encounter Additional Health Concerns Infection Onset Date Last Indicated Resolved Time Respiratory Rule-Out 03/02/2023 03/02/2023 023 6:35 PM EDT COVID-19 Rule-Out 03/02/2023 03/02/2023 03/02/2023 6:35 PM EDT documented as of this encounter Advance Directives Latest Code Status on File Code Status Date Activated Date Inactivated Comments Full Code 03/02/2023 11:58 PM 03/09/2023 6:38 PM This order reflects the patients wishes and were consensually agreed upon. Question Answer Comments Discussion of Advance Directives occurred with: Patient Care Teams Product Inspection Coordinator Relationship Specialty Start Date End Date Moreno العلي MD [address] [place] [id number] PCP - General Family Medicine 06/11/21 documented as of this encounter
--- OUTSIDE RECORDS SUMMARY | 2023-07-17 07:53 | External Medical Summary ---
Author Name Unknown Address Unknown Organization : Laboratory Report Ordering Provider Test Date Status ROCIO WHIPPLE 03/09/2023 11:31:11 Final Observation Date Value Abnormality Reference (Units ) Status Glucose Point of Care 03/09/2023 11:31:11 124 Above high normal 70-120 (mg/dL) Final Performing Location
--- OUTSIDE RECORDS SUMMARY | 2023-07-17 07:53 | External Medical Summary ---
Author Name Unknown Address Unknown Organization : Laboratory Report Ordering Provider Test Date Status ROCIO WHIPPLE 03/08/2023 11:48:48 Final Observation Date Value Abnormality Reference (Units ) Status Glucose Point of Care 03/08/2023 11:48:48 124 Above high normal 70-120 (mg/dL) Final Performing Location
--- OUTSIDE RECORDS SUMMARY | 2023-07-17 07:53 | External Medical Summary ---
Author Name Unknown Address Unknown Organization K1F:LABORATORY [facility] - [address] [place] [address] Laboratory Report Ordering Provider Test Date Status MALU CHING 03/09/2023 04:55:00 Final Observation Date Value Abnormality Reference (Units ) Status Magnesium 03/09/2023 04:55:00 1.6 1.5-2.6 (m g/dL) Final Performing Location LABORATORY [facility] - [address] [place] [address]
--- OUTSIDE RECORDS SUMMARY | 2023-07-17 07:53 | External Medical Summary ---
Author Name Unknown Address Unknown Organization : Laboratory Report Ordering Provider Test Date Status ROCIO WHIPPLE 03/08/2023 21:22:15 Final Observation Date Value Abnormality Reference (Units ) Status Glucose Point of Care 03/08/2023 21:22:15 127 Above high normal 70-120 (mg/dL) Final Performing Location
--- OUTSIDE RECORDS SUMMARY | 2023-07-17 07:53 | External Medical Summary ---
Author Name Unknown Address Unknown Organization K1F:LABORATORY [facility] - [address] [place] [address] Laboratory Report Ordering Provider Test Date Status MALU CHING 03/09/2023 04:55:00 Final Observation Date Value Abnormality Reference (Units ) Status Phosphate 03/09/2023 04:55:00 3.0 2.5-4.8 (m g/dL) Final Performing Location LABORATORY [facility] - [address] [place] [address]
--- OUTSIDE RECORDS SUMMARY | 2023-07-17 07:53 | External Medical Summary ---
Author Name Unknown Address Unknown Organization K1F:LABORATORY [facility] - [address] [place] [address] Laboratory Report Ordering Provider Test Date Status ROCIO WHIPPLE 03/08/2023 10:15:00 Final Rheumatoid factor at a level above 50 [...] definitively correlate with clinical severity of disease. Observation Date Value Abnormality Reference (Units ) Status Fibrin D-dimer FEU [Mass/volume] in Platelet poor plasma by Immunoassay 03/08/2023 10:15:00 6.28 Above high normal <0.50 (ug/mL FEU) Final Results rechecked. Performing Location LABORATORY [facility] - [address] [facility] [address] [place] [address]
--- OUTSIDE RECORDS SUMMARY | 2023-07-17 07:53 | External Medical Summary ---
Author Name Unknown Address Unknown Organization K1F:LABORATORY [facility] - [address] [place] [address] Laboratory Report Ordering Provider Test Date Status ROCIO WHIPPLE 03/08/2023 10:14:00 Final Observation Date Value Abnormality Reference (Units ) Status Lactic Acid 03/08/2023 10:14:00 0.8 0.4-2.0 (mmol/L) Final Performing Location LABORATORY [facility] - [address] [place] [address]
--- OUTSIDE RECORDS SUMMARY | 2023-07-17 07:54 | External Medical Summary ---
Author Name Unknown Address Unknown Organization K1F:LABORATORY [facility] - [address] [place] [address] Laboratory Report Ordering Provider Test Date Status MALU CHING 03/07/2023 06:00:00 Final Observation Date Value Abnormality Reference (Units ) Status Phosphate 03/07/2023 06:00:00 2.5 2.5-4.8 (m g/dL) Final Performing Location LABORATORY [facility] - [address] [place] [address]
--- OUTSIDE RECORDS SUMMARY | 2023-07-17 07:54 | External Medical Summary ---
Author Name Unknown Address Unknown Organization K1F:LABORATORY [facility] - [address] [place] [address] Laboratory Report Ordering Provider Test Date Status MALU CHING 03/06/2023 05:50:00 Final Observation Date Value Abnormality Reference (Units ) Status Magnesium 03/06/2023 05:50:00 2.4 1.5-2.6 (m g/dL) Final Performing Location LABORATORY [facility] - [address] [place] [address]
--- OUTSIDE RECORDS SUMMARY | 2023-07-17 07:54 | External Medical Summary ---
Author Name Unknown Address Unknown Organization : Laboratory Report Ordering Provider Test Date Status JOE NINA 03/05/2023 16:29:16 Final Observation Date Value Abnormality Reference (Units ) Status Glucose Point of Care 03/05/2023 16:29:16 93 70-120 (mg/dL) Final Performing Location
--- OUTSIDE RECORDS SUMMARY | 2023-07-17 07:54 | External Medical Summary ---
Author Name Unknown Address Unknown Organization K1F:LABORATORY [facility] - [address] [place] [address] Laboratory Report Ordering Provider Test Date Status MALU CHING 03/06/2023 05:50:00 Final Observation Date Value Abnormality Reference (Units ) Status BUN 03/06/2023 05:50:00 41 Above high normal 6-20 (mg/dL) Final Creatinine 03/06/2023 05:50:00 1.8 Above high normal 0.5-1.0 (mg/dL) Final Glomerular filtration rate/1.73 sq M.predicted [Volume Rate/Area] in Serum, Plasma or Blood by Creatinine-based formula (CKD-EPI) 03/06/2023 05:50:00 30 Below low normal >=60 (mL/min) Final eGFR is calculated based on the CKD-EPI 2020 equation SODIUM 03/06/2023 05:50:00 136 135-146 (m mol/L) Final Potassium 03/06/2023 05:50:00 3.9 3.5-5.1 (m mol/L) Final Cl 03/06/2023 05:50:00 103 98-107 (mm ol/L) Final CO2 03/06/2023 05:50:00 24 22-32 (mmo l/L) Final Anion gap 03/06/2023 05:50:00 9 7-15 (mmol /L) Final Glucose 03/06/2023 05:50:00 99 70-120 (mg /dL) Final Calcium 03/06/2023 05:50:00 8.2 Below low normal 8.4 -10.2 (mg/dL) Final Performing Location LABORATORY [facility] - [address] [place] [address]
--- OUTSIDE RECORDS SUMMARY | 2023-07-17 07:54 | External Medical Summary ---
Author Name Unknown Address Unknown Organization : Laboratory Report Ordering Provider Test Date Status ROCIO WHIPPLE 03/07/2023 21:16:48 Final Observation Date Value Abnormality Reference (Units ) Status Glucose Point of Care 03/07/2023 21:16:48 156 Above high normal 70-120 (mg/dL) Final Performing Location
--- OUTSIDE RECORDS SUMMARY | 2023-07-17 07:54 | External Medical Summary ---
Author Name Unknown Address Unknown Organization : Laboratory Report Ordering Provider Test Date Status TK MIRANDA 03/04/2023 21:21:14 Final Observation Date Value Abnormality Reference (Units ) Status Glucose Point of Care 03/04/2023 21:21:14 105 70-120 (mg/dL) Final Performing Location
--- OUTSIDE RECORDS SUMMARY | 2023-07-17 07:54 | External Medical Summary ---
Author Name Unknown Address Unknown Organization K1F:LABORATORY [facility] - [address] [place] [address] Laboratory Report Ordering Provider Test Date Status MALU CHING 03/08/2023 05:27:00 Final Observation Date Value Abnormality Reference (Units ) Status BUN 03/08/2023 05:27:00 29 Above high normal 6-20 (mg/dL) Final Creatinine 03/08/2023 05:27:00 1.3 Above high normal 0.5-1.0 (mg/dL) Final Glomerular filtration rate/1.73 sq M.predicted [Volume Rate/Area] in Serum, Plasma or Blood by Creatinine-based formula (CKD-EPI) 03/08/2023 05:27:00 44 Below low normal >=60 (mL/min) Final eGFR is calculated based on the CKD-EPI 2020 equation SODIUM 03/08/2023 05:27:00 138 135-146 (m mol/L) Final Potassium 03/08/2023 05:27:00 3.6 3.5-5.1 (m mol/L) Final Cl 03/08/2023 05:27:00 104 98-107 (mm ol/L) Final CO2 03/08/2023 05:27:00 26 22-32 (mmo l/L) Final Anion gap 03/08/2023 05:27:00 8 7-15 (mmol /L) Final Glucose 03/08/2023 05:27:00 128 Above high normal 70 -120 (mg/dL) Final Calcium 03/08/2023 05:27:00 8.8 8.4-10.2 ( mg/dL) Final Performing Location LABORATORY [facility] - [address] [place] [address]
--- OUTSIDE RECORDS SUMMARY | 2023-07-17 07:54 | External Medical Summary ---
Author Name Unknown Address Unknown Organization K1F:LABORATORY [facility] - [address] [place] [address] Laboratory Report Ordering Provider Test Date Status MALU CHING 03/06/2023 05:50:00 Final Observation Date Value Abnormality Reference (Units ) Status Phosphate 03/06/2023 05:50:00 3.1 2.5-4.8 (m g/dL) Final Performing Location LABORATORY [facility] - [address] [place] [address]
--- OUTSIDE RECORDS SUMMARY | 2023-07-17 07:54 | External Medical Summary ---
Author Name Unknown Address Unknown Organization : Laboratory Report Ordering Provider Test Date Status TK MIRANDA 03/04/2023 16:28:02 Final Observation Date Value Abnormality Reference (Units ) Status Glucose Point of Care 03/04/2023 16:28:02 114 70-120 (mg/dL) Final Performing Location
--- OUTSIDE RECORDS SUMMARY | 2023-07-17 07:54 | External Medical Summary ---
Author Name Unknown Address Unknown Organization K1F:LABORATORY [facility] - [address] [place] [address] Laboratory Report Ordering Provider Test Date Status HUMZAMALU 03/08/2023 05:27:00 Final Observation Date Value Abnormality Reference (Units ) Status Calcium.ionized [Moles/volume] in Serum or Plasma by Ion-selective membrane electrode (ISE) 03/08/2023 05:27:00 1.21 1.13-1.32 (mmol/L) Final This test was developed and its performance characteristics dtermined by [email or web address]. It has not been cleared or approved by the US Food and Drug Administration Performing Location LABORATORY [facility] - [address] [place] [address]
--- OUTSIDE RECORDS SUMMARY | 2023-07-17 07:54 | External Medical Summary ---
Author Name Unknown Address Unknown Organization K1F:LABORATORY [facility] - [address] [place] [address] [address] [place] [address] Laboratory Report Ordering Provider Test Date Status MALU CHING 03/08/2023 05:27:00 Final Observation Date Value Abnormality Reference (Units ) Status WBC, Total 03/08/2023 05:27:00 8.40 4.00-10.80 (K/uL) Final RBC 03/08/2023 05:27:00 3.49 3.85-5.15 (M/uL) Final Hemoglobin 03/08/2023 05:27:00 9.3 Below low normal 12.0-15.3 (g/dL) Final HCT 03/08/2023 05:27:00 30.7 Below low normal 36.0-45.2 (%) Final MCV 03/08/2023 05:27:00 88.0 81.5-97.5 (fL) Final MCH 03/08/2023 05:27:00 26.6 27.0-34.0 (pg) Final MCHC 03/08/2023 05:27:00 30.3 32.0-36.0 (g/dL) Final RDW 03/08/2023 05:27:00 15.6 11.5-15.5 (%) Final Platelets 03/08/2023 05:27:00 117 Below low normal 140-400 (K/uL) Final MPV 03/08/2023 05:27:00 13.5 6.6-11.1 (fL) Final Nucleated erythrocytes/100 leukocytes [Ratio] in Blood by Automated count 03/08/2023 05:27:00 0 <=0 (/100 WBCs) Final Performing Location LABORATORY [facility] - [address] [place] [address]
--- OUTSIDE RECORDS SUMMARY | 2023-07-17 07:54 | External Medical Summary ---
Author Name Unknown Address Unknown Organization K1F:LABORATORY [facility] - [address] [place] [address] [address] [place] [address] Laboratory Report Ordering Provider Test Date Status MALU CHING 03/06/2023 05:50:00 Final Observation Date Value Abnormality Reference (Units ) Status WBC, Total 03/06/2023 05:50:00 10.37 4.00-10.80 (K/uL) Final RBC 03/06/2023 05:50:00 3.46 3.85-5.15 (M/uL) Final Hemoglobin 03/06/2023 05:50:00 9.5 Below low normal 12.0-15.3 (g/dL) Final HCT 03/06/2023 05:50:00 30.1 Below low normal 36.0-45.2 (%) Final MCV 03/06/2023 05:50:00 87.0 81.5-97.5 (fL) Final MCH 03/06/2023 05:50:00 27.5 27.0-34.0 (pg) Final MCHC 03/06/2023 05:50:00 31.6 32.0-36.0 (g/dL) Final RDW 03/06/2023 05:50:00 15.9 11.5-15.5 (%) Final Platelets 03/06/2023 05:50:00 100 Below low normal 140-400 (K/uL) Final MPV 03/06/2023 05:50:00 12.8 6.6-11.1 (fL) Final Nucleated erythrocytes/100 leukocytes [Ratio] in Blood by Automated count 03/06/2023 05:50:00 0 <=0 (/100 WBCs) Final Performing Location LABORATORY [facility] - [address] [place] [address]
--- OUTSIDE RECORDS SUMMARY | 2023-07-17 07:54 | External Medical Summary ---
Author Name Unknown Address Unknown Organization K1F:LABORATORY [facility] - [address] [place] [address] Laboratory Report Ordering Provider Test Date Status MALU CHING 03/07/2023 06:00:00 Final Observation Date Value Abnormality Reference (Units ) Status WBC, Total 03/07/2023 06:00:00 10.31 4.00-10.80 (K/uL) Final RBC 03/07/2023 06:00:00 3.38 3.85-5.15 (M/uL) Final Hemoglobin 03/07/2023 06:00:00 9.5 Below low normal 12.0-15.3 (g/dL) Final HCT 03/07/2023 06:00:00 29.6 Below low normal 36.0-45.2 (%) Final MCV 03/07/2023 06:00:00 87.6 81.5-97.5 (fL) Final MCH 03/07/2023 06:00:00 28.1 27.0-34.0 (pg) Final MCHC 03/07/2023 06:00:00 32.1 32.0-36.0 (g/dL) Final RDW 03/07/2023 06:00:00 15.9 11.5-15.5 (%) Final Platelets 03/07/2023 06:00:00 103 Below low normal 140-400 (K/uL) Final MPV 03/07/2023 06:00:00 12.6 6.6-11.1 (fL) Final Nucleated erythrocytes/100 leukocytes [Ratio] in Blood by Automated count 03/07/2023 06:00:00 0 <=0 (/100 WBCs) Final Performing Location LABORATORY [facility] - [address] [place] [address]
--- OUTSIDE RECORDS SUMMARY | 2023-07-17 07:54 | External Medical Summary ---
Author Name Unknown Address Unknown Organization K1F:LABORATORY [facility] - [address] [place] [address] [address] [place] [address] Laboratory Report Ordering Provider Test Date Status MALU CHING 03/05/2023 05:27:00 Final Observation Date Value Abnormality Reference (Units ) Status WBC, Total 03/05/2023 05:27:00 11.42 Above high normal 4.00-10.80 (K/uL) Final RBC 03/05/2023 05:27:00 3.18 3.85-5.15 (M/uL) Final Hemoglobin 03/05/2023 05:27:00 8.8 Below low normal 12.0-15.3 (g/dL) Final HCT 03/05/2023 05:27:00 27.8 Below low normal 36.0-45.2 (%) Final MCV 03/05/2023 05:27:00 87.4 81.5-97.5 (fL) Final MCH 03/05/2023 05:27:00 27.7 27.0-34.0 (pg) Final MCHC 03/05/2023 05:27:00 31.7 32.0-36.0 (g/dL) Final RDW 03/05/2023 05:27:00 15.8 11.5-15.5 (%) Final Platelets 03/05/2023 05:27:00 87 Below low normal 140-400 (K/uL) Final MPV 03/05/2023 05:27:00 12.3 6.6-11.1 (fL) Final Nucleated erythrocytes/100 leukocytes [Ratio] in Blood by Automated count 03/05/2023 05:27:00 0 <=0 (/100 WBCs) Final Performing Location LABORATORY [facility] - [address] [place] [address]
--- OUTSIDE RECORDS SUMMARY | 2023-07-17 07:54 | External Medical Summary ---
Author Name Unknown Address Unknown Organization : Laboratory Report Ordering Provider Test Date Status ROCIO WHIPPLE 03/06/2023 21:06:45 Final Observation Date Value Abnormality Reference (Units ) Status Glucose Point of Care 03/06/2023 21:06:45 144 Above high normal 70-120 (mg/dL) Final Performing Location
--- OUTSIDE RECORDS SUMMARY | 2023-07-17 07:54 | External Medical Summary ---
Author Name Unknown Address Unknown Organization K1F:LABORATORY [facility] - [address] [place] [address] Laboratory Report Ordering Provider Test Date Status HUMZAMALU 03/05/2023 05:27:00 Final Observation Date Value Abnormality Reference (Units ) Status Calcium.ionized [Moles/volume] in Serum or Plasma by Ion-selective membrane electrode (ISE) 03/05/2023 05:27:00 1.10 Below low normal 1.13-1.32 (mmol/L) Final This test was developed and its performance characteristics dtermined by [employer]. It has not been cleared or approved by the US Food and Drug Administration Performing Location LABORATORY [facility] - [address] [place] [address]
--- OUTSIDE RECORDS SUMMARY | 2023-07-17 07:54 | External Medical Summary ---
Author Name Unknown Address Unknown Organization K1F:LABORATORY [facility] - [address] [place] [address] Laboratory Report Ordering Provider Test Date Status MALU CHING 03/08/2023 05:27:00 Final Observation Date Value Abnormality Reference (Units ) Status Magnesium 03/08/2023 05:27:00 1.8 1.5-2.6 (m g/dL) Final Performing Location LABORATORY [facility] - [address] [place] [address]
--- OUTSIDE RECORDS SUMMARY | 2023-07-17 07:54 | External Medical Summary ---
Author Name Unknown Address Unknown Organization K1F:LABORATORY [facility] - [address] [place] [address] Laboratory Report Ordering Provider Test Date Status ROCIO WHIPPLE 03/08/2023 05:27:00 Final Less than 0.5 ng/mL: Low ris k for progression to sepsis. Review patients condition for localized infections.

0.5 to 2.0 ng/mL: Intermediate risk for progresion to sepsis. Review underlying conditions. Recommend repeat PCT after 6 hours has elapsed.

Greater than 2.0 ng/mL: high risk for progression to sepsis unless other causes are known. Observation Date Value Abnormality Reference (Units ) Status Procalcitonin [Mass/volume] in Serum or Plasma by Immunoassay 03/08/2023 05:27:00 1.90 Above high normal <0.10 (ng/mL) Final Performing Location LABORATORY [facility] - [address] [place] [address]
--- OUTSIDE RECORDS SUMMARY | 2023-07-17 07:54 | External Medical Summary ---
Author Name Unknown Address Unknown Organization K1F:LABORATORY [facility] - [address] [place] [address] Laboratory Report Ordering Provider Test Date Status MALU CHING 03/08/2023 05:27:00 Final Observation Date Value Abnormality Reference (Units ) Status Phosphate 03/08/2023 05:27:00 2.5 2.5-4.8 (m g/dL) Final Performing Location LABORATORY [facility] - [address] [place] [address]
--- OUTSIDE RECORDS SUMMARY | 2023-07-17 07:54 | External Medical Summary ---
Author Name Unknown Address Unknown Organization : Laboratory Report Ordering Provider Test Date Status ROCIO WHIPPLE 03/06/2023 11:26:02 Final Observation Date Value Abnormality Reference (Units ) Status Glucose Point of Care 03/06/2023 11:26:02 114 70-120 (mg/dL) Final Performing Location
--- OUTSIDE RECORDS SUMMARY | 2023-07-17 07:54 | External Medical Summary ---
Author Name Unknown Address Unknown Organization K1F:LABORATORY [facility] - [address] [place] [address] Laboratory Report Ordering Provider Test Date Status MALU CHING 03/07/2023 06:00:00 Final Observation Date Value Abnormality Reference (Units ) Status BUN 03/07/2023 06:00:00 35 Above high normal 6-20 (mg/dL) Final Creatinine 03/07/2023 06:00:00 1.5 Above high normal 0.5-1.0 (mg/dL) Final Glomerular filtration rate/1.73 sq M.predicted [Volume Rate/Area] in Serum, Plasma or Blood by Creatinine-based formula (CKD-EPI) 03/07/2023 06:00:00 37 Below low normal >=60 (mL/min) Final eGFR is calculated based on the CKD-EPI 2020 equation SODIUM 03/07/2023 06:00:00 137 135-146 (m mol/L) Final Potassium 03/07/2023 06:00:00 3.7 3.5-5.1 (m mol/L) Final Cl 03/07/2023 06:00:00 104 98-107 (mm ol/L) Final CO2 03/07/2023 06:00:00 25 22-32 (mmo l/L) Final Anion gap 03/07/2023 06:00:00 8 7-15 (mmol /L) Final Glucose 03/07/2023 06:00:00 124 Above high normal 70 -120 (mg/dL) Final Calcium 03/07/2023 06:00:00 8.5 8.4-10.2 ( mg/dL) Final Performing Location LABORATORY [facility] - [address] [place] [address]
--- OUTSIDE RECORDS SUMMARY | 2023-07-17 07:54 | External Medical Summary ---
Author Name Unknown Address Unknown Organization K1F:LABORATORY [facility] - [address] [place] [address] Laboratory Report Ordering Provider Test Date Status ROCIO WHIPPLE 03/08/2023 05:27:00 Final Observation Date Value Abnormality Reference (Units ) Status CRP, low-sensitivity 03/08/2023 05:27:00 117 Above high normal <=5 (mg/L) Final Performing Location LABORATORY [facility] - [address] [place] [address]
--- OUTSIDE RECORDS SUMMARY | 2023-07-17 07:54 | External Medical Summary ---
Author Name Unknown Address Unknown Organization : Laboratory Report Ordering Provider Test Date Status ROCIO WHIPPLE 03/06/2023 07:36:46 Final Observation Date Value Abnormality Reference (Units ) Status Glucose Point of Care 03/06/2023 07:36:46 86 70-120 (mg/dL) Final Performing Location
--- OUTSIDE RECORDS SUMMARY | 2023-07-17 07:54 | External Medical Summary ---
Author Name Unknown Address Unknown Organization : Laboratory Report Ordering Provider Test Date Status TK MIRANDA 03/05/2023 07:32:37 Final Observation Date Value Abnormality Reference (Units ) Status Glucose Point of Care 03/05/2023 07:32:37 96 70-120 (mg/dL) Final Performing Location
--- OUTSIDE RECORDS SUMMARY | 2023-07-17 07:54 | External Medical Summary ---
Author Name Unknown Address Unknown Organization : Laboratory Report Ordering Provider Test Date Status TK MIRANDA 03/05/2023 11:58:36 Final Observation Date Value Abnormality Reference (Units ) Status Glucose Point of Care 03/05/2023 11:58:36 94 70-120 (mg/dL) Final Performing Location
--- OUTSIDE RECORDS SUMMARY | 2023-07-17 07:54 | External Medical Summary ---
Author Name Unknown Address Unknown Organization : Laboratory Report Ordering Provider Test Date Status ROCIO WHIPPLE 03/07/2023 16:12:03 Final Observation Date Value Abnormality Reference (Units ) Status Glucose Point of Care 03/07/2023 16:12:03 139 Above high normal 70-120 (mg/dL) Final Performing Location
--- OUTSIDE RECORDS SUMMARY | 2023-07-17 07:54 | External Medical Summary ---
Author Name Unknown Address Unknown Organization : Laboratory Report Ordering Provider Test Date Status JOE NINA 03/05/2023 21:25:44 Final Observation Date Value Abnormality Reference (Units ) Status Glucose Point of Care 03/05/2023 21:25:44 109 70-120 (mg/dL) Final Performing Location
--- OUTSIDE RECORDS SUMMARY | 2023-07-17 07:54 | External Medical Summary ---
Author Name Unknown Address Unknown Organization K1F:LABORATORY [facility] - [address] [place] [address] Laboratory Report Ordering Provider Test Date Status MALU CHING 03/05/2023 05:27:00 Final Observation Date Value Abnormality Reference (Units ) Status BUN 03/05/2023 05:27:00 43 Above high normal 6-20 (mg/dL) Final Creatinine 03/05/2023 05:27:00 2.0 Above high normal 0.5-1.0 (mg/dL) Final Glomerular filtration rate/1.73 sq M.predicted [Volume Rate/Area] in Serum, Plasma or Blood by Creatinine-based formula (CKD-EPI) 03/05/2023 05:27:00 26 Below low normal >=60 (mL/min) Final eGFR is calculated based on the CKD-EPI 2020 equation SODIUM 03/05/2023 05:27:00 137 135-146 (m mol/L) Final Potassium 03/05/2023 05:27:00 4.1 3.5-5.1 (m mol/L) Final Cl 03/05/2023 05:27:00 104 98-107 (mm ol/L) Final CO2 03/05/2023 05:27:00 24 22-32 (mmo l/L) Final Anion gap 03/05/2023 05:27:00 9 7-15 (mmol /L) Final Glucose 03/05/2023 05:27:00 101 70-120 (mg /dL) Final Calcium 03/05/2023 05:27:00 7.7 Below low normal 8.4 -10.2 (mg/dL) Final Performing Location LABORATORY [facility] - [address] [place] [address]
--- OUTSIDE RECORDS SUMMARY | 2023-07-17 07:54 | External Medical Summary ---
Author Name Unknown Address Unknown Organization K1F:LABORATORY [facility] - [address] [place] [address] Laboratory Report Ordering Provider Test Date Status HUMZAMALU 03/07/2023 06:01:00 Final Observation Date Value Abnormality Reference (Units ) Status Calcium.ionized [Moles/volume] in Serum or Plasma by Ion-selective membrane electrode (ISE) 03/07/2023 06:01:00 1.20 1.13-1.32 (mmol/L) Final This test was developed and its performance characteristics dtermined by [employer]. It has not been cleared or approved by the US Food and Drug Administration Performing Location LABORATORY [facility] - [address] [place] [address]
--- OUTSIDE RECORDS SUMMARY | 2023-07-17 07:54 | External Medical Summary ---
Author Name Unknown Address Unknown Organization K1F:LABORATORY [facility] - [address] [place] [address] [address] [place] [address] Laboratory Report Ordering Provider Test Date Status RUBENTK 03/04/2023 17:15:00 Final Observation Date Value Abnormality Reference (Units ) Status Bacteria identified in Unspecified specimen by Culture 03/04/2023 17:15:00 No growth Final Test: Culture, Blood
Sp ecimen Source: Blood, Venous
Specimen Type: Blood
Specimen Date: 03/04/2023 5:15 PM
Result Date: 03/09/2023 6:01 PM
Result Status: Final result
Resulting Lab: LABORATORY [facility]
[address] [place] [address]
[address] [place] [address]

CULTURE

No growth

null Performing Location LABORATORY [facility] - [address] [place] [address] [address] [place] [address]
--- OUTSIDE RECORDS SUMMARY | 2023-07-17 07:54 | External Medical Summary ---
Author Name Unknown Address Unknown Organization : Laboratory Report Ordering Provider Test Date Status ROCIO WHIPPLE 03/07/2023 07:42:00 Final Observation Date Value Abnormality Reference (Units ) Status Glucose Point of Care 03/07/2023 07:42:00 124 Above high normal 70-120 (mg/dL) Final Performing Location
--- OUTSIDE RECORDS SUMMARY | 2023-07-17 07:55 | External Medical Summary ---
Author Name Unknown Address Unknown Organization K01:[facility] [place] [address] [facility] [address] Laboratory Report Ordering Provider Test Date Status DAVID JEONG JR 03/03/2023 10:30:00 Final Urine culture left ureter - need culture and sensitivity Observation Date Value Abnormality Reference (Units ) Status Bacteria identified in Unspecified specimen by Culture 03/03/2023 10:30:00 [id number]^ESCHE RICHIA COLI Abnormal Final >100,000 colonies/mL Escheri clara coli Performing Location [facility] [place] [address] [facility] [address] Ordering Provider Test Date Status DAVID JEONG JR 03/03/2023 10:30:00 Final Observation Date Value Abnormality Reference (Units ) Status Ampicillin 03/03/2023 10:30:00 4 Susceptible Final Cefazolin 03/03/2023 10:30:00 <=4 Susceptible Final Cefepime susceptibility 03/03/2023 10:30:00 <=1 Susceptible Final Ceftriaxone suceptibility 03/03/2023 10:30:00 <=1 Susceptible Final Ciprofloxacin 03/03/2023 10:30:00 <=0.25 Susceptible Final Due to serious side effects, the FDA has advised against using Ciprofloxacin to treat uncomplicated UTIs and respiratory tract infections unless there are no alternative treatment options. Gentamicin susceptibility 03/03/2023 10:30:00 <=1 Susc eptible Final Nitrofurantoin susceptibility 03/03/2023 10:30:00 <=16 Susceptible Final Piperacillin + Tazobactamsusceptibility 03/03/2023 10:30:00 <=4 Susceptible Final TMP-SMZ susceptibility 03/03/2023 10:30:00 <=20 Suscept ible Final Test: Culture, Urine, Quanti tative
Specimen Source: Urine, Cystoscopy
Specimen Type: Urine
Specimen Date: 03/03/2023 10:30 AM
Result Date: 03/06/2023 9:31 AM
Result Status: Final result
Abnormal: Yes
Resulting Lab: [facility]
[address] [place] [address]

CULTURE

>100,000 colonies/mL Escherichia coli (Abnormal)

SUSCEPTIBILITY

Escherichia coli
METHOD MICROBROTH DILUTIONS

AMPICILLIN 4 Susceptible
CEFAZOLIN <=4 Susceptible
CEFEPIME <=1 Susceptible
CEFTRIAXONE <=1 Susceptible
CIPROFLOXACIN <=0.25 Susceptible [1]
GENTAMICIN <=1 Susceptible
NITROFURANTOIN <=16 Susceptible
PIPERACILLIN TAZOBACTAM <=4 Susceptible
TRIMETH/SULFAMETHOXAZOLE <=20 Susceptible

[1] Due to serious side effects, the FDA has advised against using
Ciprofloxacin to treat uncomplicated UTIs and respiratory tract infections
unless there are no alternative treatment options.

null Performing Location [facility] [place] [address] [facility] [address]
--- OUTSIDE RECORDS SUMMARY | 2023-07-17 07:55 | External Medical Summary ---
Author Name Unknown Address Unknown Organization : Laboratory Report Ordering Provider Test Date Status ARIANNA JUAREZ 03/03/2023 06:03:00 Final Observation Date Value Abnormality Reference (Units ) Status Performing Location
--- OUTSIDE RECORDS SUMMARY | 2023-07-17 07:55 | External Medical Summary ---
Author Name Unknown Address Unknown Organization K1F:LABORATORY [facility] - [address] [place] [address] Laboratory Report Ordering Provider Test Date Status ARIANNA JUAREZ 03/03/2023 06:03:00 Final Observation Date Value Abnormality Reference (Units ) Status BUN 03/03/2023 06:03:00 38 Above high normal 6-20 (mg/dL) Final Creatinine 03/03/2023 06:03:00 2.5 Above high normal 0.5-1.0 (mg/dL) Final Glomerular filtration rate/1.73 sq M.predicted [Volume Rate/Area] in Serum, Plasma or Blood by Creatinine-based formula (CKD-EPI) 03/03/2023 06:03:00 20 Below low normal >=60 (mL/min) Final eGFR is calculated based on the CKD-EPI 2020 equation SODIUM 03/03/2023 06:03:00 138 135-146 (m mol/L) Final Potassium 03/03/2023 06:03:00 4.3 3.5-5.1 (m mol/L) Final Cl 03/03/2023 06:03:00 106 98-107 (mm ol/L) Final CO2 03/03/2023 06:03:00 20 Below low normal 22- 32 (mmol/L) Final Anion gap 03/03/2023 06:03:00 12 7-15 (mmol /L) Final Glucose 03/03/2023 06:03:00 103 70-120 (mg /dL) Final Calcium 03/03/2023 06:03:00 7.5 Below low normal 8.4 -10.2 (mg/dL) Final Performing Location LABORATORY [facility] - [address] [place] [address]
--- OUTSIDE RECORDS SUMMARY | 2023-07-17 07:55 | External Medical Summary ---
Author Name Unknown Address Unknown Organization K1F:LABORATORY [facility] - [address] [facility] [place] [address] Laboratory Report Ordering Provider Test Date Status SHUNTONNY 03/02/2023 17:54:00 Final Observation Date Value Abnormality Reference (Units ) Status BUN 03/02/2023 17:54:00 32 Above high normal 6-20 (mg/dL) Final Creatinine 03/02/2023 17:54:00 2.4 Above high normal 0.5-1.0 (mg/dL) Final Glomerular filtration rate/1.73 sq M.predicted [Volume Rate/Area] in Serum, Plasma or Blood by Creatinine-based formula (CKD-EPI) 03/02/2023 17:54:00 21 Below low normal >=60 (mL/min) Final eGFR is calculated based on the CKD-EPI 2020 equation SODIUM 03/02/2023 17:54:00 134 Below low normal 135 -146 (mmol/L) Final Potassium 03/02/2023 17:54:00 4.6 3.5-5.1 (m mol/L) Final Cl 03/02/2023 17:54:00 100 98-107 (mm ol/L) Final CO2 03/02/2023 17:54:00 25 22-32 (mmo l/L) Final Anion gap 03/02/2023 17:54:00 9 7-15 (mmol /L) Final Glucose 03/02/2023 17:54:00 122 Above high normal 70 -120 (mg/dL) Final Albumin 03/02/2023 17:54:00 3.1 Below low normal 3.8 -5.0 (g/dL) Final AST (Aspartate aminotransferase) 03/02/2023 17:54:00 30 10-35 (U/L) Fin al Alk Phos 03/02/2023 17:54:00 86 35-130 (U/ L) Final Bilirubin, Total 03/02/2023 17:54:00 0.7 <=1 .2 (mg/dL) Final Calcium 03/02/2023 17:54:00 8.7 8.4-10.2 ( mg/dL) Final Protein 03/02/2023 17:54:00 6.6 6.0-8.3 (g /dL) Final ALT (Alanine aminotransferase) 03/02/2023 17:54:00 18 10-35 (U/L) Rai murrell Performing Location LABORATORY [facility] - [facility] [place] [address] [place] [address]
--- OUTSIDE RECORDS SUMMARY | 2023-07-17 07:55 | External Medical Summary ---
Author Name Unknown Address Unknown Organization K1F:LABORATORY [facility] - [address] [place] [address] Laboratory Report Ordering Provider Test Date Status TONNY HOFFMANN 03/02/2023 18:37:29 Final Observation Date Value Abnormality Reference (Units ) Status RBC, Urine 03/02/2023 18:37:29 Final Mathis obscured by WBCs.<br/ >null WBC, Urine 03/02/2023 18:37:29 50+ Abnormal 0-2 (/HPF ) Final Bacteria [#/area] in Urine sediment by Microscopy high power field 03/02/2023 18:37:29 >200 Abnormal 0-25 (/HPF) Final Performing Location LABORATORY [facility] - [address] [place] [address]
--- OUTSIDE RECORDS SUMMARY | 2023-07-17 07:55 | External Medical Summary ---
Author Name Unknown Address Unknown Organization K1F:LABORATORY [facility] - [address] [place] [address] Laboratory Report Ordering Provider Test Date Status HUMZAMALU 03/04/2023 05:49:00 Final Observation Date Value Abnormality Reference (Units ) Status Calcium.ionized [Moles/volume] in Serum or Plasma by Ion-selective membrane electrode (ISE) 03/04/2023 05:49:00 1.05 Below low normal 1.13-1.32 (mmol/L) Final This test was developed and its performance characteristics dtermined by [employer]. It has not been cleared or approved by the US Food and Drug Administration Performing Location LABORATORY [facility] - [address] [place] [address]
--- OUTSIDE RECORDS SUMMARY | 2023-07-17 07:55 | External Medical Summary ---
Author Name Unknown Address Unknown Organization K1F:LABORATORY [facility] - [address] [place] [address] Laboratory Report Ordering Provider Test Date Status MALU CHING 03/04/2023 05:49:00 Final Observation Date Value Abnormality Reference (Units ) Status WBC, Total 03/04/2023 05:49:00 14.26 Above high normal 4.00-10.80 (K/uL) Final RBC 03/04/2023 05:49:00 3.34 3.85-5.15 (M/uL) Final Hemoglobin 03/04/2023 05:49:00 9.2 Below low normal 12.0-15.3 (g/dL) Final HCT 03/04/2023 05:49:00 29.3 Below low normal 36.0-45.2 (%) Final MCV 03/04/2023 05:49:00 87.7 81.5-97.5 (fL) Final MCH 03/04/2023 05:49:00 27.5 27.0-34.0 (pg) Final MCHC 03/04/2023 05:49:00 31.4 32.0-36.0 (g/dL) Final RDW 03/04/2023 05:49:00 15.6 11.5-15.5 (%) Final Platelets 03/04/2023 05:49:00 105 Below low normal 140-400 (K/uL) Final MPV 03/04/2023 05:49:00 12.5 6.6-11.1 (fL) Final Nucleated erythrocytes/100 leukocytes [Ratio] in Blood by Automated count 03/04/2023 05:49:00 0 <=0 (/100 WBCs) Final Performing Location LABORATORY [facility] - [address] [place] [address]
--- OUTSIDE RECORDS SUMMARY | 2023-07-17 07:55 | External Medical Summary ---
Author Name Unknown Address Unknown Organization K1F:LABORATORY [facility] - [address] [place] [address] Laboratory Report Ordering Provider Test Date Status TONNY HOFFMANN 03/02/2023 17:54:00 Final Observation Date Value Abnormality Reference (Units ) Status Lactic Acid, Whole Blood 03/02/2023 17:54:00 2.4 Above high normal 0.4-2.0 (mmol/L) Final Performing Location LABORATORY [facility] - [address] [place] [address]
--- OUTSIDE RECORDS SUMMARY | 2023-07-17 07:55 | External Medical Summary ---
Author Name Unknown Address Unknown Organization K01:[facility]ORY [facility] [place] [address] [place] [address] Laboratory Report Ordering Provider Test Date Status TONNY HOFFMANN 03/02/2023 19:23:00 Final Observation Date Value Abnormality Reference (Units) Status Bacteria identified in Unspecified specimen by Culture 03/02/2023 19:23:00 [id number]^LACTOSE FERMENTING GRAM NEGATIVE BACILLI Very abnormal Final Both bottles of set Lactose fermenting gram negative bacilli
Refer to culture collected the same day for complete identification and/or susceptibilities. Gram Stain 03/02/2023 19:23:00 Anaerobic radha ttle Gram negative bacilli Very abnormal Final This is an appended report. These results have been appended to a previously preliminary verified report. Gram Stain 03/02/2023 19:23:00 Aerobic joeclyn le Gram negative bacilli Very abnormal Final This is an appended report. These results have been appended to a previously preliminary verified report.
Test: Culture, Blood (Site 2)
Specimen Source: Blood, Venous
Specimen Type: Blood
Specimen Date: 03/02/2023 7:23 PM
Result Date: 03/06/2023 10:01 AM
Result Status: Final result
Abnormal: Yes
Resulting Lab: LABORATORY [facility]
[address] [facility]
[place] [address]

CULTURE

Both bottles of set Lactose fermenting gram negative bacilli (Panic)

Refer to culture collected the same day for complete identification and/or
susceptibilities.

STAIN

Anaerobic bottle Gram negative bacilli

This is an appended report. These results have been appended to a
previously preliminary verified report.

Aerobic bottle Gram negative bacilli

This is an appended report. These results have been appended to a
previously preliminary verified report.

null Performing Location LABORATORY [facility] - [address] [facility] [address]
--- OUTSIDE RECORDS SUMMARY | 2023-07-17 07:55 | External Medical Summary ---
Author Name Unknown Address Unknown Organization : Laboratory Report Ordering Provider Test Date Status TK MIRANDA 03/03/2023 15:36:36 Final Observation Date Value Abnormality Reference (Units ) Status Glucose Point of Care 03/03/2023 15:36:36 123 Above high normal 70-120 (mg/dL) Final Performing Location
--- OUTSIDE RECORDS SUMMARY | 2023-07-17 07:55 | External Medical Summary ---
Author Name Unknown Address Unknown Organization K1F:LABORATORY [facility] - [address] [place] [address] Laboratory Report Ordering Provider Test Date Status ARIANNA JUAREZ 03/03/2023 06:03:00 Final Observation Date Value Abnormality Reference (Units ) Status WBC, Total 03/03/2023 06:03:00 29.75 Above high normal 4.00-10.80 (K/uL) Final RBC 03/03/2023 06:03:00 3.81 3.85-5.15 (M/uL) Final Hemoglobin 03/03/2023 06:03:00 10.5 Below low normal 12.0-15.3 (g/dL) Final HCT 03/03/2023 06:03:00 33.2 Below low normal 36.0-45.2 (%) Final MCV 03/03/2023 06:03:00 87.1 81.5-97.5 (fL) Final MCH 03/03/2023 06:03:00 27.6 27.0-34.0 (pg) Final MCHC 03/03/2023 06:03:00 31.6 32.0-36.0 (g/dL) Final RDW 03/03/2023 06:03:00 15.3 11.5-15.5 (%) Final Platelets 03/03/2023 06:03:00 139 Below low normal 140-400 (K/uL) Final MPV 03/03/2023 06:03:00 13.2 6.6-11.1 (fL) Final Nucleated erythrocytes/100 leukocytes [Ratio] in Blood by Automated count 03/03/2023 06:03:00 0 <=0 (/100 WBCs) Final Performing Location LABORATORY [facility] - [address] [place] [address]
--- OUTSIDE RECORDS SUMMARY | 2023-07-17 07:55 | External Medical Summary ---
Author Name Unknown Address Unknown Organization K01:LABORATORY [facility] - [address] [facility] [place] [address] Laboratory Report Ordering Provider Test Date Status ARIANNA JUAREZ 03/03/2023 06:03:00 Final Observation Date Value Abnormality Reference (Units ) Status HbA1C 03/03/2023 06:03:00 6.0 Above high normal 4. 0-5.6 (%) Final The use of HbA1c to monitor glycemic status is based on normal hemoglobin and HbA composition. This test should not be used in patients with abnormal hemoglobin that affects the half life of the red blood cell or the in vivo glycation rates. Glucose, estimated average 03/03/2023 06:03:00 126 Above high normal <126 (mg/dL) Rai murrell Performing Location LABORATORY [facility] - [address] [facility] [place] [address]
--- OUTSIDE RECORDS SUMMARY | 2023-07-17 07:55 | External Medical Summary ---
Author Name Unknown Address Unknown Organization K1F:LABORATORY [facility] - [address] [place] [address] Laboratory Report Ordering Provider Test Date Status PAVAN JUAREZO 03/03/2023 06:03:00 Final Observation Date Value Abnormality Reference (Units ) Status SYNC LEUKOCYTES IN BLOOD BY AUTOMATED COUNT 03/03/2023 06:03:00 29.75 Above high normal 4.00-10.80 (K/uL) Final Neutrophils/100 leukocytes in Blood by Manual count 03/03/2023 06:03:00 98.0 Above high normal 40.0-75.0 (%) Final Monocytes/100 leukocytes in Blood by Manual count 03/03/2023 06:03:00 2.0 1.0-11.0 (%) Final Neutrophils [#/volume] in Blood by Manual count 03/03/2023 06:03:00 29.16 Above high normal 1.80-7.70 (K/uL) Final Monocytes [#/volume] in Blood by Manual count 03/03/2023 06:03:00 0.60 0.00-1.10 (K/uL) Final [place] cells [Presence] in Blood by Light microscopy 03/03/2023 06:03:00 Moderate Abnormal None Seen Final Performing Location LABORATORY [facility] - [address] [place] [address]
--- OUTSIDE RECORDS SUMMARY | 2023-07-17 07:55 | External Medical Summary ---
Author Name Unknown Address Unknown Organization K1F:LABORATORY [facility] - [facility] [address] [place] [address] Laboratory Report Ordering Provider Test Date Status TONNY HOFFMANN 03/02/2023 17:54:00 Final Observation Date Value Abnormality Reference (Units ) Status WBC, Total 03/02/2023 17:54:00 28.63 Above high normal 4.00-10.80 (K/uL) Final RBC 03/02/2023 17:54:00 4.29 3.85-5.15 (M/uL) Final Hemoglobin 03/02/2023 17:54:00 12.0 12.0-15.3 (g/dL) Final HCT 03/02/2023 17:54:00 37.0 36.0-45.2 (%) Final MCV 03/02/2023 17:54:00 86.2 81.5-97.5 (fL) Final MCH 03/02/2023 17:54:00 28.0 27.0-34.0 (pg) Final MCHC 03/02/2023 17:54:00 32.4 32.0-36.0 (g/dL) Final RDW 03/02/2023 17:54:00 15.1 11.5-15.5 (%) Final Platelets 03/02/2023 17:54:00 157 140-400 (K/uL) Final MPV 03/02/2023 17:54:00 11.4 6.6-11.1 (fL) Final Nucleated erythrocytes/100 leukocytes [Ratio] in Blood by Automated count 03/02/2023 17:54:00 0 <=0 (/100 WBCs) Final Performing Location LABORATORY [facility] - [address] [place] [address]
--- OUTSIDE RECORDS SUMMARY | 2023-07-17 07:55 | External Medical Summary ---
Author Name Unknown Address Unknown Organization K1F:LABORATORY [facility] - [address] [place] [address] Laboratory Report Ordering Provider Test Date Status EUSEBIOCATY 03/03/2023 06:53:00 Final Observation Date Value Abnormality Reference (Units ) Status Lactic Acid 03/03/2023 06:53:00 1.7 0.4-2.0 (mmol/L) Final Performing Location LABORATORY [facility] - [address] [place] [address]
--- OUTSIDE RECORDS SUMMARY | 2023-07-17 07:55 | External Medical Summary ---
Author Name Unknown Address Unknown Organization K1F:LABORATORY [facility] - [address] [facility] [place] [address] Laboratory Report Ordering Provider Test Date Status TONNY HOFFMANN 03/02/2023 17:43:58 Final ADMITTED patient Observation Date Value Abnormality Reference (Units ) Status Adenovirus DNA [Presence] in Nasopharynx by DARIEN with non-probe detection 03/02/2023 17:43:58 Negative Negative Final Human coronavirus 229E RNA [Presence] in Nasopharynx by DARIEN with non-probe detection 03/02/2023 17:43:58 Negative Negative Final Human coronavirus HKU1 RNA [Presence] in Nasopharynx by DARIEN with non-probe detection 03/02/2023 17:43:58 Negative Negative Final Human coronavirus NL63 RNA [Presence] in Nasopharynx by DARIEN with non-probe detection 03/02/2023 17:43:58 Negative Negative Final Human coronavirus OC43 RNA [Presence] in Nasopharynx by DARIEN with non-probe detection 03/02/2023 17:43:58 Negative Negative Final SARS-CoV-2 (COVID-19) RNA [Presence] in Nasopharynx by DARIEN with non-probe detection 03/02/2023 17:43:58 Negative Negative Final Human metapneumovirus RNA [Presence] in Nasopharynx by DARIEN with non-probe detection 03/02/2023 17:43:58 Negative Negative Final Rhinovirus+Enterovirus RNA [Presence] in Nasopharynx by DARIEN with non-probe detection 03/02/2023 17:43:58 Negative Negative Final Influenza virus A RNA [Presence] in Nasopharynx by DARIEN with non-probe detection 03/02/2023 17:43:58 Negative Negative Final Influenza virus B RNA [Presence] in Nasopharynx by DARIEN with non-probe detection 03/02/2023 17:43:58 Negative Negative Final Parainfluenza virus 1 RNA [Presence] in Nasopharynx by DARIEN with non-probe detection 03/02/2023 17:43:58 Negative Negative Final Parainfluenza virus 2 RNA [Presence] in Nasopharynx by DARIEN with non-probe detection 03/02/2023 17:43:58 Negative Negative Final Parainfluenza virus 3 RNA [Presence] in Nasopharynx by DARIEN with non-probe detection 03/02/2023 17:43:58 Negative Negative Final Parainfluenza virus 4 RNA [Presence] in Nasopharynx by DARIEN with non-probe detection 03/02/2023 17:43:58 Negative Negative Final Respiratory syncytial virus RNA [Presence] in Nasopharynx by DARIEN with non-probe detection 03/02/2023 17:43:58 Negative Negative Final Bordetella pertussis.pertussis toxin promoter region [Presence] in Nasopharynx by DARIEN with non-probe detection 03/02/2023 17:43:58 Negative Negative Final Chlamydophila pneumoniae DNA [Presence] in Nasopharynx by DARIEN with non-probe detection 03/02/2023 17:43:58 Negative Negative Final Mycoplasma pneumoniae DNA [Presence] in Nasopharynx by DARIEN with non-probe detection 03/02/2023 17:43:58 Negative Negative Final Bordetella parapertussis [id number] DNA [Presence] in Nasopharynx by DARIEN with non-probe detection 03/02/2023 17:43:58 Negative Negative Final
The primers that detect Rhinovirus may cross react with some Enterorviruses. The validation of bronchial specimens, tracheal aspirates, and throats for this assay was developed and performance characteristics determined by [employer]. The validation of alternate specimen types has not been cleared or approved by the U.S. Food and Drug Administration (FDA). It has been determined that such clearance or approval is not necessary. [address] [facility] [address]
--- OUTSIDE RECORDS SUMMARY | 2023-07-17 07:55 | External Medical Summary ---
Author Name Unknown Address Unknown Organization K1F:LABORATORY [facility] - [address] [place] [address] Laboratory Report Ordering Provider Test Date Status MALU CHING 03/04/2023 05:49:00 Final Observation Date Value Abnormality Reference (Units ) Status BUN 03/04/2023 05:49:00 41 Above high normal 6-20 (mg/dL) Final Creatinine 03/04/2023 05:49:00 2.1 Above high normal 0.5-1.0 (mg/dL) Final Glomerular filtration rate/1.73 sq M.predicted [Volume Rate/Area] in Serum, Plasma or Blood by Creatinine-based formula (CKD-EPI) 03/04/2023 05:49:00 24 Below low normal >=60 (mL/min) Final eGFR is calculated based on the CKD-EPI 2020 equation SODIUM 03/04/2023 05:49:00 135 135-146 (m mol/L) Final Potassium 03/04/2023 05:49:00 4.2 3.5-5.1 (m mol/L) Final Cl 03/04/2023 05:49:00 104 98-107 (mm ol/L) Final CO2 03/04/2023 05:49:00 20 Below low normal 22- 32 (mmol/L) Final Anion gap 03/04/2023 05:49:00 11 7-15 (mmol /L) Final Glucose 03/04/2023 05:49:00 98 70-120 (mg /dL) Final Calcium 03/04/2023 05:49:00 7.6 Below low normal 8.4 -10.2 (mg/dL) Final Performing Location LABORATORY [facility] - [address] [place] [address]
--- OUTSIDE RECORDS SUMMARY | 2023-07-17 07:55 | External Medical Summary ---
Author Name Unknown Address Unknown Organization : Laboratory Report Ordering Provider Test Date Status TK MIRANDA 03/03/2023 01:23:02 Final Observation Date Value Abnormality Reference (Units ) Status Glucose Point of Care 03/03/2023 01:23:02 126 Above high normal 70-120 (mg/dL) Final Performing Location
--- OUTSIDE RECORDS SUMMARY | 2023-07-17 07:55 | External Medical Summary ---
Author Name Unknown Address Unknown Organization K1F:LABORATORY [facility] - [address] [place] [address] Laboratory Report Ordering Provider Test Date Status TK MIRANDA 03/03/2023 16:09:00 Final Observation Date Value Abnormality Reference (Units ) Status Magnesium 03/03/2023 16:09:00 1.7 1.5-2.6 (m g/dL) Final Performing Location LABORATORY [facility] - [address] [place] [address]
--- OUTSIDE RECORDS SUMMARY | 2023-07-17 07:55 | External Medical Summary ---
Author Name Unknown Address Unknown Organization K01:LAB[facility]ATORY [facility] [place] [address] [place] [address] Laboratory Report Ordering Provider Test Date Status ARIANNA JUAREZ 03/03/2023 06:25:26 Final Observation Date Value Abnormality Reference (Units ) Status Methicillin resistant Staphylococcus aureus (MRSA) DNA [Presence] in Nose by DARIEN with probe detection 03/03/2023 06:25:26 Negative Negative Final No Methicillin resistant Sta phylococcus aureus detected by PCR (amplified probe). Performing Location LABORATORY [facility] [place] [address] [place] [address]
--- OUTSIDE RECORDS SUMMARY | 2023-07-17 07:55 | External Medical Summary ---
Author Name Unknown Address Unknown Organization K1F:LABORATORY [facility] - [address] [place] [address] [address] [place] [address] Laboratory Report Ordering Provider Test Date Status TK MIRANDA 03/03/2023 16:13:16 Final Observation Date Value Abnormality Reference (Units ) Status WBC, Total 03/03/2023 16:13:16 19.91 Above high normal 4.00-10.80 (K/uL) Final RBC 03/03/2023 16:13:16 3.63 3.85-5.15 (M/uL) Final Hemoglobin 03/03/2023 16:13:16 10.1 Below low normal 12.0-15.3 (g/dL) Final HCT 03/03/2023 16:13:16 32.2 Below low normal 36.0-45.2 (%) Final MCV 03/03/2023 16:13:16 88.7 81.5-97.5 (fL) Final MCH 03/03/2023 16:13:16 27.8 27.0-34.0 (pg) Final MCHC 03/03/2023 16:13:16 31.4 32.0-36.0 (g/dL) Final RDW 03/03/2023 16:13:16 15.5 11.5-15.5 (%) Final Platelets 03/03/2023 16:13:16 122 Below low normal 140-400 (K/uL) Final MPV 03/03/2023 16:13:16 12.6 6.6-11.1 (fL) Final Nucleated erythrocytes/100 leukocytes [Ratio] in Blood by Automated count 03/03/2023 16:13:16 0 <=0 (/100 WBCs) Final Performing Location LABORATORY [facility] - [address] [place] [address]
--- OUTSIDE RECORDS SUMMARY | 2023-07-17 07:55 | External Medical Summary ---
Author Name Unknown Address Unknown Organization K1F:LABORATORY [address] [place] [address] Laboratory Report Ordering Provider Test Date Status TONNY HOFFMANN 03/02/2023 19:20:00 Final Observation Date Value Abnormality Reference (Units) Status Escherichia coli DNA [Presence] by DARIEN with probe detection in Positive blood culture 03/02/2023 19:20:00 Positive Very abnormal Negative Final Cephalosporin resistance blaCTX-M gene [Presence] by Molecular method 03/02/2023 19:20:00 Negative Negative Final Carbapenem resistance genes [Presence] by Molecular method 03/02/2023 19:20:00 Negative Negative Final Carbapenem resistance blaKPC gene [Presence] by Molecular method 03/02/2023 19:20:00 Negative Negative Final Carbapenem resistance blaVIM gene [Presence] in Isolate or Specimen by Molecular method 03/02/2023 19:20:00 Negative Negative Final Carbapenem resistance teoESM-35-dkkr+blaOX A-48-like genes [Presence] in Isolate or Specimen by Molecular genetics method 03/02/2023 19:20:00 Negative Negative Final Carbapenem resistance blaNDM gene [Presence] in Isolate or Specimen by Molecular method 03/02/2023 19:20:00 Negative Negative Final Colistin resistance mcr-1 gene [Presence] by Molecular method 03/02/2023 19:20:00 Negative Negative Final Blood pathogens panel by DARIEN with non-probe detection in Positive blood culture 03/02/2023 19:20:00 Negative for all other bacterial targets and resistance genes. Final This assay detects: Enteroco ccus faecalis,Enterococcus faecium, Listeria monocytogenes,Staphylococcus,Staphylococcus aureus,Staphylococcus epidermidis,Staphylococcus lugdunensis, [...] was developed and performance characteristics determined by [employer]. It has not been cleared or approved by the U.S. Food and Drug Administration (FDA). The FDA has determined that such clearance or approval is not necessary. Performing [facility] - [address] [place] [address] [address] [facility] [address]
--- OUTSIDE RECORDS SUMMARY | 2023-07-17 07:55 | External Medical Summary ---
Author Name Unknown Address Unknown Organization K1F:LABORATORY [facility] - [address] [place] [address] Laboratory Report Ordering Provider Test Date Status TK MIRANDA 03/03/2023 16:09:00 Final Observation Date Value Abnormality Reference (Units ) Status Calcium.ionized [Moles/volume] in Blood by Ion-selective membrane electrode (ISE) 03/03/2023 16:09:00 1.14 1.13-1.32 (mmol/L) Final Performing Location LABORATORY [facility] - [address] [place] [address]
--- OUTSIDE RECORDS SUMMARY | 2023-07-17 07:55 | External Medical Summary ---
Author Name Unknown Address Unknown Organization K1F:LABORATORY [facility] - [address] [place] [address] Laboratory Report Ordering Provider Test Date Status MALU CHING 03/04/2023 05:49:00 Final Observation Date Value Abnormality Reference (Units ) Status Phosphate 03/04/2023 05:49:00 3.1 2.5-4.8 (m g/dL) Final Performing Location LABORATORY [facility] - [address] [place] [address]
--- OUTSIDE RECORDS SUMMARY | 2023-07-17 07:55 | External Medical Summary ---
Author Name Unknown Address Unknown Organization K01:LABORATORY [facility] [place] - [address] [facility] [facility] [address] Laboratory Report Ordering Provider Test Date Status TONNY HOFFMANN 03/02/2023 19:20:00 Final Observation Date Value Abnormality Reference (Units ) Status Bacteria identified in Unspecified specimen by Culture 03/02/2023 19:20:00 [id number]^ESCHE RICHIA COLI Very abnormal Final Both bottles of set Escheric hia coli Gram Stain 03/02/2023 19:20:00 Anaerobic radha ttle Gram negative bacilli Very abnormal Final This is an appended report. These results have been appended to a previously preliminary verified report. Gram Stain 03/02/2023 19:20:00 Aerobic jocelyn le Gram negative bacilli Very abnormal Final This is an appended report. These results have been appended to a previously preliminary verified report. Performing Location LABORATORY [facility] - [address] [facility] [address] Ordering Provider Test Date Status TONNY HOFFMANN 03/02/2023 19:20:00 Final Observation Date Value Abnormality Reference (Units) Status Ampicillin 03/02/2023 19:20:00 <=2 Susceptible Final Cefepime susceptibility 03/02/2023 19:20:00 <=1 Susceptible Final Ceftriaxone suceptibility 03/02/2023 19:20:00 <=1 Susceptible Final Ciprofloxacin 03/02/2023 19:20:00 <=0.25 Susceptible Final Gentamicin susceptibility 03/02/2023 19:20:00 <=1 Susceptible Final Piperacillin + Tazobactamsusceptibility 03/02/2023 19:20:00 <=4 Susceptible Final TMP-SMZ susceptibility 03/02/2023 19:20:00 <=20 Susceptible Final Test: Culture, Blood
Spe cimen Source: Blood, Venous
Specimen Type: Blood
Specimen Date: 03/02/2023 7:20 PM
Result Date: 03/06/2023 10:01 AM
Result Status: Final result
Abnormal: Yes
Resulting Lab: LABORATORY [facility]
[address]
[place] [address]

CULTURE

Both bottles of set Escherichia coli (Panic)

STAIN

Anaerobic bottle Gram negative bacilli

This is an appended report. These results have been appended to a
previously preliminary verified report.

Aerobic bottle Gram negative bacilli

This is an appended report. These results have been appended to a
previously preliminary verified report.

SUSCEPTIBILITY

Escherichia coli
METHOD MICROBROTH
DILUTIONS

AMPICILLIN <=2 Susceptible
CEFEPIME <=1 Susceptible
CEFTRIAXONE <=1 Susceptible
CIPROFLOXACIN <=0.25 Susceptible
GENTAMICIN <=1 Susceptible
PIPERACILLIN TAZOBACTAM <=4 Susceptible
TRIMETH/SULFAMETHOXAZOLE <=20 Susceptible

null Performing Location LABORATORY [facility] [place] - [address] [facility] [address]
--- OUTSIDE RECORDS SUMMARY | 2023-07-17 07:55 | External Medical Summary | Summary of Care ---
Author Name Unknown Organization [facility] Address [address] [place] [address] Phone [phone] Care Team Providers Care Finishing Lab Technician Name Role Phone Meaghan Wilson MD Primary Care Provider [phone] [phone] Reason for Visit * Reason Comments eRx-Medication Refill Encounter Details Date Type Department Care Team Description 02/22/2023 Refill Family Practice [facility] [address] [place] [address] Meaghan Wilson MD [address] [place] [address] Allergies Active Allergy Reactions Severity Noted Date Comments Metformin Nausea/vomiting Medium 11/07/2020 Nsaids 01/07/2005 Prednisone 12/26/2013 ? Hives Worries about blood sugar elevation Sulfa Antibiotics 12/26/2013 hives Tramadol Other (Please comment) 02/20/2014 Urine retention documented as of this encounter (statuses as of 02/23/2023) Medications Medication Sig Dispensed Refills Start Date [...] BY MOUTH EVERYDAY AT BEDTIME, Reported on 03/08/2021 Nitroglycerin 0.4 MG Sublingual Tablet Sublingual (Nitrostat) [...] hemoglobin A1c goal of less than 7.0% ([facility]) Take by mouth 1 Tablet in [...] COPD, group C, by GOLD 2017 classification ([facility]) inhale 1 puff by mouth and INTO THE LUNGS twice a day 180 Each 1 3 Active oxyCODONE-Acetamino phen 10-325 MG Oral Tablet (Percocet)Indicatio ns:Spinal stenosis of lumbar region without neurogenic claudication Take 1 Tablet by mouth every 6 hours as needed for Severe Pain, 120 Tablet 0 3 Active Spiriva HandiHaler 18 MCG Inhalation Capsule (tiotropium bromide) INHALE THE CONTENTS OF 1 CAPSULE EVERY DAY 90 Capsule 3 3 Active Spiriva HandiHaler 18 MCG Inhalation Capsule (tiotropium bromide) INHALE THE CONTENTS OF 1 CAPSULE EVERY DAY 90 Capsule 1 3 02/24/20 23 Discontinued documented as of this encounter (statuses as of 02/23/2023) Active Problems Problem Noted Date Depression with anxiety 06/30/2022 Morbid obesity due [...] as of this encounter (statuses as of 02/23/2023) Resolved Problems Problem Noted Date Resolved Date JONA (generalized anxiety disorder) 03/14/2022 06/30/2022 Body [...] knee 07/30/201205/18 HTN, GOAL BELOW 140/80 04/05/2012 04/07/201 6 Overview: Per HTN Protocol #27. Renal stone 03/29/2012 01/31/2019 COPD, severe 06/23/2011 01/26/2019 Overview: Per COPD GOLD Classification HTN, GOAL BELOW 130/80 07/10/2009 2 Overview: Modified per HTN protocol #16. PURE HYPERCHOLESTEROLEM 09/18/2006 07/26/20 09 Overview: Per Lipid Taxonomy. ADVANCE DIRECTIVE INFORMATION 01/08/2005 Overview: refused inf Type 2 diabetes mellitus wit h hemoglobin A1c goal of less than 7.0% 09/12/2004 06/14/2009 Overview: Per Diabetes Taxonomy. ICD-10 update of inactive term HYPERSOMNI W SLEEP APNEA-nocturnal oxygen 200306/09/2021 Tobacco use disorder 03/22/2004 10/26/2015 EXT ASTHMA W-O STAT ASTH 011 LUMBAGO 08/09/2007 HYPERTENSION NOS 07/10/2009 Overview: Modified per HTN protocol #16. GENERAL OSTEOARTHROSIS 1 documented as of this encounter (statuses as of 02/23/2023) Immunizations Name Administration Dates Next Due COVID-19 [...] on file documented as of this encounter Miscellaneous Notes * Telephone Encounter - Serafin Eckert, [facility] - 02/23/2023 11:02 AM EDT Signed Prescriptions: Disp Refills Spiriva HandiHaler 18 MCG Inhalation Capsu*90 Cap*3 Sig: INHALE THE CONTENTS OF 1 CAPSULE EVERY DAYAuthorizing Provider: MEAGHAN WILSON User: SERAFIN ECKERT documented in this encounter Plan of Treatment [...] 12/27/2021, 0 03/08/2021, 03/07/2020, Additional history exists HbA1c 02/18/2023 08/21/2022, 12/15, 03/08/2021, Additional history exists Mammogram 03/04/2023 03/04/2022, 05/18, 02/13/2017, Additional history exists Influenza Vaccine (FLU shot) (#1) 2023 07/01/2022, 06/11/2021, 07/09/2020, Additional history exists GFR 06/12/2023 06/12/2022, 02/15, 11/07/2020, Additional history exists O2 ASSESSMENT COMPLETED IN PAST YEAR FOR COPD 01/03/2024 01/02/2023 DTaP,Tdap,and Td Vaccines (3 - Td or Tdap) 02/24/2027 02/24/2017, 03/02/2008 Lipid Panel 06/12/2027 06/12/2022, 02/15, 03/07/2020, Additional history exists Colonoscopy 06/06/2031 06/06/2021 Colorectal Cancer Screening 06/06/2031 Pneumococcal Vaccine: 65+ Years Completed 02/24/2017, 02/04/2016, 08/07/2005 Zoster Vaccines Completed 05/27/2020, 02/15, 07/30/2012 VITAMIN D LEVEL ONCE IN A LIFETIME-USE SMARTSET# [id number] Completed 06/12/2022, 01/31/2019, 04/06/2018, Additional history exists [...] Not on filedocumented as of this encounter Care Teams Finishing Lab Technician Relationship Specialty Start Date End Date Meaghan Wilson MD [address] [place] [id number] PCP - General Family Medicine 06/11/21 documented as of this encounter
--- OUTSIDE RECORDS SUMMARY | 2023-07-17 07:55 | External Medical Summary ---
Author Name Unknown Address Unknown Organization K1F:[facility] - [address] [place] [address] Laboratory Report Ordering Provider Test Date Status TK MIRANDA 03/03/2023 06:03:00 Final Observation Date Value Abnormality Reference (Units ) Status TSH 03/03/2023 06:03:00 2.12 0.27-4.20 (uIU/mL) Final Performing Location [facility] - [address] [place] [address]
--- OUTSIDE RECORDS SUMMARY | 2023-07-17 07:55 | External Medical Summary ---
Author Name Unknown Address Unknown Organization : Laboratory Report Ordering Provider Test Date Status TK MIRANDA 03/03/2023 21:21:54 Final Observation Date Value Abnormality Reference (Units ) Status Glucose Point of Care 03/03/2023 21:21:54 93 70-120 (mg/dL) Final Performing Location
--- OUTSIDE RECORDS SUMMARY | 2023-07-17 07:55 | External Medical Summary ---
Author Name Unknown Address Unknown Organization : Laboratory Report Ordering Provider Test Date Status TK MIRANDA 03/04/2023 11:10:18 Final Observation Date Value Abnormality Reference (Units ) Status Glucose Point of Care 03/04/2023 11:10:18 90 70-120 (mg/dL) Final Performing Location
--- OUTSIDE RECORDS SUMMARY | 2023-07-17 07:55 | External Medical Summary ---
Author Name Unknown Address Unknown Organization K1F:[facility] - [address] [place] [address] Laboratory Report Ordering Provider Test Date Status TK MIRANDA 03/03/2023 11:56:00 Final Observation Date Value Abnormality Reference (Units ) Status Calcium.ionized [Moles/volume] in Blood by Ion-selective membrane electrode (ISE) 03/03/2023 11:56:00 1.05 Below low normal 1.13-1.32 (mmol/L) Final Performing Location [facility] - [address] [place] [address]
--- OUTSIDE RECORDS SUMMARY | 2023-07-17 07:55 | External Medical Summary ---
Author Name Unknown Address Unknown Organization K1F:LABORATORY [facility] - [address] [place] [address] Laboratory Report Ordering Provider Test Date Status TONNY HOFFMANN 03/02/2023 18:37:29 Final Observation Date Value Abnormality Reference (Units ) Status Color of Urine by Auto 03/02/2023 18:37:29 Yellow Light Yellow, Yellow, Dark Yellow Final Clarity, Urine 03/02/2023 18:37:29 Cloudy Abnormal Clear Final Glucose [Mass/volume] in Urine by Automated test strip 03/02/2023 18:37:29 Negative Negative (mg/dL) Final Bilirubin.total [Presence] in Urine by Automated test strip 03/02/2023 18:37:29 Small Abnormal Negative Final Ketones [Mass/volume] in Urine by Automated test strip 03/02/2023 18:37:29 Negative Negative (mg/dL) Final Specific gravity, Urine 03/02/2023 18:37:29 1.017 1.003-1.030 Final Hemoglobin [Presence] in Urine by Automated test strip 03/02/2023 18:37:29 Large Abnormal Negative Final pH, Urine 03/02/2023 18:37:29 5.5 5.0-7.5 (Units) Final Protein [Mass/volume] in Urine by Automated test strip 03/02/2023 18:37:29 >=300 Abnormal Negative (mg/dL) Final Urobilinogen [Mass/volume] in Urine by Automated test strip 03/02/2023 18:37:29 1.0 0.2, 1.0 (mg/dL) Final Nitrite [Presence] in Urine by Automated test strip 03/02/2023 18:37:29 Negative Negative Final Leukocyte esterase [Presence] in Urine by Automated test strip 03/02/2023 18:37:29 Large Abnormal Negative Final Performing Location [facility] - [address] [place] [address]
--- OUTSIDE RECORDS SUMMARY | 2023-07-17 07:56 | External Medical Summary | Summary of Care ---
Author Name Unknown Organization [facility] Address [address] [place] [address] Phone [phone] Care Team Providers Care Glass Glazier Name Role Phone Meaghan Wilson MD Primary Care Provider [phone] [phone] Reason for Visit * Reason Comments Medication Refill Encounter Details Date Type Department Care Team Description 02/05/2023 Refill Family Practice [facility] [address] [place] [address] Meaghan Wilson MD [address] [place] [address] Controlled substance agreement signed*; SPINAL STENOSIS-LUMBAR Allergies Active Allergy Reactions Severity Noted Date Comments Metformin Nausea/vomiting Medium 11/07/2020 Nsaids 01/07/2005 Prednisone 12/26/2013 ? Hives Worries about blood sugar elevation Sulfa Antibiotics 12/26/2013 hives Tramadol Other (Please comment) 02/20/2014 Urine retention documented as of this encounter (statuses as of 02/05/2023) Medications Medication Sig Dispensed Refills Start Date [...] goal of less than 7.0% ([facility]) Take by mouth 1 Tablet in the [...] FOR RESTLESS LEGS 90 Tablet 09/10/2022 Active Spiriva HandiHaler 18 MCG Inhalation Capsule (tiotropium bromide) INHALE THE CONTENTS OF 1 CAPSULE EVERY DAY 90 Capsule 1 09/10/2022 Active Meclizine HCl 12.5 MG Oral [...] C, by GOLD 2017 classification ([facility]) inhale 1 puff by mouth and INTO THE LUNGS twice a day 180 Each 1 01/09/2023 Active oxyCODONE-Acetamino phen 10-325 MG Oral Tablet (Percocet)Indicatio ns:Spinal stenosis of lumbar region without neurogenic claudication Take 1 Tablet by mouth every 6 hours as needed for Severe Pain, 120 Tablet 0 02/05/2023 Active oxyCODONE-Acetamino phen 10-325 MG Oral Tablet (Percocet)Indicatio ns:Spinal stenosis of lumbar region without neurogenic claudication Take 1 Tablet by mouth every 6 hours as needed for Severe Pain, 120 Tablet 0 01/07/2023 02/05/20 23 Discontinu ed(Refill) documented as of this encounter (statuses as of 02/05/2023) Active Problems Problem Noted Date Depression with [...] as of this encounter (statuses as of 02/05/2023) Resolved Problems Problem Noted Date Resolved Date [...] as of this encounter (statuses as of 02/05/2023) Immunizations Name Administration Dates Next Due COVID-19 [...] Telephone Encounter - Meaghan Wilson MD - 02/05/2023 10:40 AM EDTSigned Prescriptions: Disp Refills oxyCODONE-Acetaminophen 10-325 MG Oral Tab*120 Ta*0 Sig: Take 1 Tablet by mouth every 6 hours as needed for Severe Pain, Authorizing Provider: MEAGHAN WILSON * Telephone Encounter - Melissa Portillo LPN - 02/05/2023 10:38 AM EDTPending Prescriptions: Disp Refills oxyCODONE-Acetaminophen 10-325 MG Oral Tab*120 Ta*0 Sig: Take 1 Tablet by mouth every 6 hours as needed for Severe Pain, * Telephone Encounter - Melissa Portlilo LPN - 02/05/2023 10:38 AM EDT Started a new enc. Pt needs urine and med use agreement * Telephone Encounter - Melissa Portillo LPN - 02/05/2023 10:24 AM EDT Pending Prescriptions: Disp Refills oxyCODONE-Acetaminophen 10-325 MG Oral Ta*120 Ta*0 Sig: Take 1 Tablet by mouth every 6 hours as needed for Severe Pain, Last Visit: 07/01/2022 (in office), Visit date not found (telemedicine) Next Visit: Visit date not found Last date the medication was ordered: 01/07/2023 Patient Active Problem List Diagnosis Code Spinal stenosis of lumbar region without neurogenic claudication M48.061 Gastroesophageal reflux disease without esophagitis K21.9 Type 2 diabetes mellitus with hemoglobin A1c goal of less than 8.0% ([facility]) E11.9 Dyslipidemia E78.5 RLS (restless legs syndrome) G25.81 HTN, goal below 130/80 I10 Controlled substance agreement signed Z79.899 COPD, group C, by GOLD 2017 classification ([facility]) J44.9 Senile osteoporosis M81.0 Moderate aortic stenosis I35.0 Morbid obesity due to excess calories ([facility]) E66.01 Depression with anxiety F41.8 Labs: Lab Results Component Value Date/Time CREATININE 0.6 (L) 10/13/1996 03:40 PM CREATININE - [facility] 0.9 06/12/2022 09:02 AM CREATININE - [facility] 0.9 06/21/2020 03:28 PM CREATININE KARENA 21 08/31/2020 01:49 PM CREATININE, RANDOM URINE - [facility] 123 12/27/2021 11:06 AM CREATININE, RANDOM URINE - [facility] 143 10/18/2019 02:02 PM CREATININE-OUTSIDE LAB 0.94 06/09/2018 12:00 AM Lab Results Component Value Date/Time POTASSIUM 3.8 10/13/1996 03:40 PM POTASSIUM - [facility] 4.3 06/12/2022 09:02 AM POTASSIUM - [facility] 4.3 06/21/2020 03:28 PM POTASSIUM-OUTSIDE LAB 3.7 06/09/2018 12:00 AM Lab Results Component Value Date/Time TSH - [facility] 2.67 11/07/2020 04:12 PM TSH - [facility] 2.63 07/01/2017 12:55 PM Lab Results Component Value Date/Time LDL (CALCULATED) 150. (H) 10/13/1996 03:40 PM LDL CHOLESTEROL (CALCULATED) - [facility] 63 06/12/2022 09:02 AM LDL CHOLESTEROL (CALCULATED) - [facility] 41 03/08/2021 03:02 PM LDL CHOLESTEROL (CALCULATED) - [facility] 68 03/07/2020 02:30 PM LDL CHOLESTEROL (CALCULATED) - [facility] 74 01/31/2019 01:48 PM LDL CHOLESTEROL (DIRECT MEASURE) - [facility] NOT APPLICABLE 03/07/2020 02:30 PM LDL CHOLESTEROL (DIRECT MEASURE) - [facility] NOT APPLICABLE 01/31/2019 01:48 PM LDL CHOLESTEROL (DIRECT MEASURE) - [facility] 75 10/28/2017 04:30 PM LDL CHOLESTEROL (DIRECT MEASURE) - [facility] 66 12/06/2014 10:38 AM Lab Results Component Value Date/Time ALT 16 10/13/1996 03:40 PM ALT - [facility] 17 06/12/2022 09:02 AM ALT - [facility] 31 06/14/2019 10:57 AM Hemoglobin AIC Results: Lab Results Component Value Date/Time HEMOGLOBIN A1C - [facility] 6.0 (H) 08/21/2022 04:09 PM HEMOGLOBIN A1C - [facility] 5.9 (H) 12/27/2021 11:06 AM HEMOGLOBIN A1C - [facility] 6.1 (H) 03/08/2021 03:02 PM HEMOGLOBIN A1C - [facility] 6.8 (H) 07/09/2020 03:09 PM HEMOGLOBIN A1C - [facility] 7.8 (H) 03/07/2020 02:30 PM HEMOGLOBIN A1C - [facility] 6.8 (H) 10/18/2019 01:39 PM documented in this encounter Plan of [...] 03/04/2023 03/04/2022, 05/18, 02/13/2017, Additional history exists GFR 06/12/2023 06/12/2022, 02/15, [...] D LEVEL ONCE IN A LIFETIME-USE SMARTSET# [id number] Completed 06/12/2022, 01/31/2019, 04/06/2018, Additional history exists Influenza Vaccine (FLU shot) Completed , 06/11/2021, 07/09/2020, Additional history exists GARDASIL-HPV IMMUNIZATION SERIES Aged [...] for long-term (current) use of other medications SPINAL STENOSIS-LUMBAR Spinal stenosis, lumbar region, without neurogenic claudication documented in this encounter Care Teams Glass Glazier Relationship Specialty Start Date End Date Meaghan Wilson MD [address] [place] [address] PCP - General Family Medicine 06/11/21 documented as of this encounter
--- OUTSIDE RECORDS SUMMARY | 2023-07-17 07:56 | External Medical Summary | Summary of Care ---
Author Name Unknown Organization [facility] Address [address] [place] [address] Phone [phone] Care Team Providers Care Transport Assistant Name Role Phone Moreno العلي MD Primary Care Provider [phone] Encounter Details Date Type Department Care Team Description 02/05/2023 Telephone Family Practice [facility] [address] [facility] [place] [address] Moreno العلي MD [address] [employer] [facility] [place] [address] Allergies Active Allergy Reactions Severity Noted Date [...] A1c goal of less than 7.0% ([facility]) Take by mouth 1 [...] (Proventil)Indicatio ns:COPD, severity to be determined ([facility]) inhale contents of 1 [...] group C, by GOLD 2017 classification ([facility]) inhale 1 puff by mouth and INTO THE LUNGS twice a day 180 Each 1 01/09/2023 Active oxyCODONE-Acetaminop hen 10-325 MG Oral Tablet (Percocet)Indication s:Spinal stenosis of lumbar region without neurogenic claudication Take 1 Tablet by mouth every 6 hours as needed for Severe Pain, 120 Tablet 0 02/05/2023 Active documented as of this encounter (statuses [...] Encounter - Melissa Portillo LPN - 02/05/2023 10:36 AM EDT Please assist with scheduling NV for urine tox and med use agreement. documented in this encounter Plan of Treatment Scheduled Orders Name Type Priority Associated Diagnoses Orde r Schedule PAIN MANAGEMENT DRUG PANEL, URINE W/ INTERPRETATION Lab Routine Controlled substance agreement signed Expected: 02/05/2023 (Approximate), Expires: 02/05/2024 Scheduled Procedures Name Priority Associated Diagnoses Date/Ti [...] D LEVEL ONCE IN A LIFETIME-USE SMARTSET# [id number] Completed 06/12/2022, 01/31/2019, 04/06/2018, Additional history exists [...] of other medications documented in this encounter Care Teams Transport Assistant Relationship Specialty Start Date End Date Moreno العلي MD [address] [place] [address] PCP - General Family Medicine 06/11/21 documented as of this encounter
--- OUTSIDE RECORDS SUMMARY | 2023-07-17 07:56 | External Medical Summary | Summary of Care ---
Author Name Unknown Organization [facility] Address [address] [place] [address] Phone [phone] Care Team Providers Care Granite Chip Terrazzo Finisher Name Role Phone Moreno العلي MD Primary Care Provider [phone] Reason for Visit * Reason Comments Medication Refill Encounter Details Date Type Department Care Team Description 02/04/2023 Refill Family Practice [facility] [address] [place] [address] Moreno العلي MD [address] [place] [address] SPINAL STENOSIS-LUMBAR Allergies Active Allergy Reactions Severity [...] goal of less than 7.0% ([facility]) Take by mouth 1 Tablet in [...] ns:COPD, severity to be determined ([facility]) inhale contents of 1 vial ( 3 [...] before bedtime. 180 Tablet 1 11/20/2022 Active oxyCODONE-Acetaminop hen 10-325 MG Oral Tablet (Percocet)Indication s:Spinal stenosis of lumbar region without neurogenic claudication Take 1 Tablet by mouth every 6 hours as needed for Severe Pain, 120 Tablet 0 01/07/2023 Active Fluticasone-Salmeter ol 250-50 MCG/ACT Inhalation Aerosol Powder Breath Activated (Advair Diskus)Indications:C OPD, group C, by GOLD 2017 classification ([facility]) inhale 1 puff by mouth and INTO THE LUNGS twice a day 180 Each 1 01/09/2023 Active documented as of this encounter (statuses [...] Miscellaneous Notes * Telephone Encounter - DENILSON Deal Tech - 02/05/2023 10:06 AM EDTNo prescriptions requested or ordered in this encounter * Telephone Encounter - DENILSON Deal - 02/05/2023 10:06 AM EDTNo prescriptions requested or ordered in this encounter * Telephone Encounter - DENILSON Chacko - 02/05/2023 9:25 AM EDT Did you pend patient's preferred pharmacy and medication before forwarding?yes Pharmacy: [facility] Pending Prescriptions: Disp Refills oxyCODONE-Acetaminophen 10-325 MG Oral Ta*120 Ta*0 Sig: Take 1 Tablet by mouth every 6 hours as needed for Severe Pain, Last Visit: 07/01/2022 (in office), Visit date not found (telemedicine) Next Visit: Visit date not found If no future appointments scheduled, and last appointment is greater than a year ago, please schedule patient for a follow-up appointment Last date the medication was ordered: 01/07/2023 Is this request for a controlled substance?Yes, What was the last refill date 01/07/2023 w/ quantity 120 and dosage 10-325 mgand Urine Drug Screen was completed Urine Drug Screen: Results for orders [...] Labs: Lab Results Component Value Date/Time CREAT 0.9 06/12/2022 09:02 AM CREAT 0.9 06/21/2020 03:28 PM CREAT 0.6 (L) 10/13/1996 03:40 PM POTASSIUM 4.3 06/12/2022 09:02 AM POTASSIUM 4.3 06/21/2020 03:28 PM POTASSIUM 3.8 10/13/1996 03:40 PM TSH 2.67 11/07/2020 04:12 PM TSH 2.63 07/01/2017 12:55 PM TSH 1.56 10/13/1996 03:40 PM LDLCALC 63 06/12/2022 09:02 AM LDLCALC 68 03/07/2020 02:30 PM LDLCALC 150. (H) 10/13/1996 03:40 PM LDLDIRECT NOT APPLICABLE 03/07/2020 02:30 PM LDLDIRECT 75 10/28/2017 04:30 PM ALT 17 06/12/2022 09:02 AM ALT 31 06/14/2019 10:57 AM ALT 16 10/13/1996 03:40 PM HGBA1C 6.0 (H) 08/21/2022 04:09 PM HGBA1C 6.8 (H) 07/09/2020 03:09 PM documented [...] D LEVEL ONCE IN A LIFETIME-USE SMARTSET# [id number] Completed 06/12/2022, 01/31/2019, 04/06/2018, Additional history exists [...] as of this encounter Visit Diagnoses Diagnosis SPINAL STENOSIS-LUMBAR Spinal stenosis, lumbar region, without neurogenic claudication documented in this encounter Care Teams Granite Chip Terrazzo Finisher Relationship Specialty Start Date End Date Moreno العلي MD [address] [place] [address] PCP - General Family Medicine 06/11/21 documented as of this encounter
[2023-07-17 07:59] LABS: Estimated Average Glucose 123 mg/dl; Hemoglobin A1C 5.9 % (4.5-5.6)
[2023-07-17] MEDS: INSULIN ASPART PER UNIT CHARGE SC SCH ×4 (09:06→20:40)
[2023-07-17] MEDS: LANTUS PER UNIT CHARGE SQ SCH (09:07)
[2023-07-17] MEDS: cefTRIAXone SODIUM 2,000 MG in DEXTROSE 5 % MINI-B 50 ML IV SCH (09:07)
[2023-07-17] MEDS: FLUTICASONE/VILANTEROL 100/25MCG 14 PUFFS/INHALER INH SCH (09:07)
[2023-07-17] MEDS: HEPARIN SOD 5,000 UNIT/0.5 ML VIAL SQ SCH ×3 (09:08→20:35)
[2023-07-17] MEDS: ATORVASTATIN 40 MG TAB PO SCH (09:08)
[2023-07-17] MEDS: BACLOFEN 10 MG TAB PO SCH ×2 (09:09→20:35)
[2023-07-17] MEDS: UMECLIDINIUM BROMIDE 62.5MCG/BLISTER 7 PUFFS/INHALER INH SCH (09:09)
[2023-07-17] MEDS: MONTELUKAST SODIUM 10 MG TABLET PO SCH (09:09)
[2023-07-17] MEDS: PANTOprazole 40 MG TAB PO SCH ×2 (09:09→20:35)
[2023-07-17] MEDS: buPROPion XL 150 MG TABCR PO SCH (09:09)
[2023-07-17] MEDS: ASPIRIN 81 MG ECTAB PO SCH (09:09)
[2023-07-17] MEDS ORDERED: POTASSIUM CHLORIDE CRTAB 20 MEQ TABCR PO STA (15:24)
--- NOTE | 2023-07-17 15:33 | Communication Note ---
Date of Service: July 17, 2023 Patient was seen and examined at bedside. 72-year-old lady with PMH of COPD, moderate AAS, JEMIMA on nocturnal home oxygen, PVD, HTN, HLD, T2DM on oral meds, CKD [baseline creatinine 1], chronic anemia [baseline hemoglobin 10-11], GERD, chronic pain, RLS, urolithiasis, anxiety/mood disorder, past tobacco abuse presented with complaint of 2 days history of cough with yellow sputum associated with fever and wheezing. Also reports chest pain at the lower rib cage from coughing. Denies aspiration. She is being managed for the following: Pneumonia Sepsis POA: Likely secondary to above. Admitting WBC 17.05K, elevated pulse rate. COPD exacerbation: Secondary to above Admitting CXR with right lung base consolidation. Continue with nebs RTC, steroid course Patient started on Rocephin and doxycycline 07/17, continue same Follow admitting cultures. Patient reports feeling better. WBC trending down. Acute kidney injury: Baseline creatinine around 1, admitting creatinine of 1.41. Hold nephrotoxic, status post IV fluid, BMP in AM. Demand ischemia: Troponin elevated but downtrending, patient with no chest pain, likely secondary to acute illness. Telemetry monitoring. Other chronic medical conditions: Continue with/resume home meds as and when able. hx moderate JEMIMA on nocturnal home O2 hx PVD hypertension, BP stable DM 2 on oral medications, well-controlled as of recent hemoglobin A1c of 6.21 February 2023, a1c of 5.9 this admission. Chronic anemia, hemoglobin at baseline GERD, stable on regimen anxiety/mood disorder, at baseline past tobacco abuse DVT prophylaxis: Heparin subcu Full code On examination: GENERAL: Alert and oriented x3. NAD, on RA. Appears ill/weak. HEENT: No pallor, no icterus. Pupils equal, round and reactive to light. Oral mucosa moist. NECK: No JVD, no neck masses. HEART: S1 and S2 heard. Regular rate and rhythm. No murmur, no gallop. RESPIRATORY SYSTEM: Normal AP diameter. No accessory muscle use. Bilateral rhonchi, occasional crackles. ABDOMEN: Soft, bowel sounds present, nontender, no distention. CENTRAL NERVOUS SYSTEM: No facial droop. Speech is clear. Obeys simple commands. Moves extremities. EXTREMITIES: No edema, no erythema seen. Please note the above document was generated using voice recognition software. It may contain grammatical, syntax or spelling errors. Any formal questions or concerns about the content, text or information contained within the body of this dictation should be directly addressed to the undersigned for clarification.
--- NOTE | 2023-07-17 17:33 | Electrocardiogram Report ---
Test Reason : Blood Pressure : / mmHG Vent. Rate : 106 BPM Atrial Rate : 106 BPM P-R Int : 176 ms QRS Dur : 094 ms QT Int : 318 ms P-R-T Axes : 042 030 047 degrees QTc Int : 422 ms Sinus tachycardia with Premature supraventricular complexes Otherwise normal ECG When compared with ECG of 14-SEP-2022 10:23, Premature supraventricular complexes are now Present DC interval has decreased Confirmed by Sha Ortiz ([id number]) on 07/17/2023 5:32:47 PM Referred By: REFERRED SELF Confirmed By:Fausto Ortiz
--- NOTE | 2023-07-17 17:37 | Electrocardiogram Report ---
Test Reason : Blood Pressure : / mmHG Vent. Rate : 096 BPM Atrial Rate : 096 BPM P-R Int : 170 ms QRS Dur : 086 ms QT Int : 340 ms P-R-T Axes : -22 039 040 degrees QTc Int : 429 ms Sinus rhythm with Premature atrial complexes with Aberrant conduction Otherwise normal ECG When compared with ECG of 16-JUL-2023 22:18, (unconfirmed) No significant change was found Confirmed by Sha Ortiz ([id number]) on 07/17/2023 5:37:13 PM Referred By: REFERRED SELF Confirmed By:Fausto Ortiz
[2023-07-17] MEDS ORDERED: INFLUENZA VACCINE HIGH-DOSE (HD-IIV4) PF 65+ 0.7mL SYR IM ONE (20:30)
[2023-07-17] MEDS: oxyCODONE HCL IR 5 MG TAB (IMMEDIATE RELEASE) PO PRN (20:33)
[2023-07-17] MEDS: AMITRIPTYLINE HCL 25 MG TAB PO SCH (20:34)
[2023-07-17] MEDS: rOPINIRole HCL 1 MG TABLET PO SCH (20:35)
[2023-07-17] MEDS: DOXYCYCLINE HYCLATE 100 MG CAP PO SCH (20:36)
[2023-07-18] MEDS: LEVALBUTEROL 1.25 MG/3 ML NEB NEB SCH ×4 (02:16→19:49)
[2023-07-18] MEDS: oxyCODONE HCL IR 5 MG TAB (IMMEDIATE RELEASE) PO PRN ×2 (02:16→11:03)
[2023-07-18] MEDS: IPRATROPIUM BROMIDE NEB SOLN 0.02% 2.5 ML VIAL INH SCH ×4 (02:16→19:49)
[2023-07-18] MEDS: HEPARIN SOD 5,000 UNIT/0.5 ML VIAL SQ SCH ×3 (06:29→21:49)
[2023-07-18 06:30] LABS: Hematocrit (blood only) 31.2 % (37.0-47.0); Hemoglobin 9.8 g/dl (12.0-16.0); Mean Corpuscular Hemoglobin 27.1 pg (25.0-34.0); Mean Corpuscular Hgb Conc 31.4 g/dL (32.0-36.0); Mean Corpuscular Volume 86.4 fL (80.0-100.0); Mean Platelet Volume 13.5 fL (9.4-12.4); Platelet Count 120 K/uL (130-400); RDW Standard Deviation 47.8 fL (36.4-46.3); Red Blood Count 3.61 M/uL (4.20-5.40); White Blood Count 12.56 K/ul (4.8-10.8)
[2023-07-18 06:33] LABS: BUN Creatinine Ratio 20.4 (10-20); Calcium 8.6 mg/dl (8.6-10.3); Creatinine Clr Calc Pharmacy 39.7 ml/min; Est GFR (African American) 44.5 ml/min; Est GFR (Non-African American) 38.4 ml/min; Magnesium 2.3 mg/dl (1.7-2.4); Phosphorus 3.2 mg/dl (2.5-4.9); Potassium 4.2 mmol/L (3.5-5.1)
[2023-07-18] MEDS: cefTRIAXone SODIUM 2,000 MG in DEXTROSE 5 % MINI-B 50 ML IV SCH (08:35)
[2023-07-18] MEDS ORDERED: predniSONE 20 MG TAB PO SCH (09:00)
[2023-07-18] MEDS: LANTUS PER UNIT CHARGE SQ SCH (09:04)
[2023-07-18] MEDS: INSULIN ASPART PER UNIT CHARGE SC SCH ×4 (09:04→21:49)
[2023-07-18] MEDS: ATORVASTATIN 40 MG TAB PO SCH (09:11)
[2023-07-18] MEDS: PANTOprazole 40 MG TAB PO SCH ×2 (09:11→21:49)
[2023-07-18] MEDS: ASPIRIN 81 MG ECTAB PO SCH (09:11)
[2023-07-18] MEDS: MONTELUKAST SODIUM 10 MG TABLET PO SCH (09:11)
[2023-07-18] MEDS: buPROPion XL 150 MG TABCR PO SCH (09:11)
[2023-07-18] MEDS: BACLOFEN 10 MG TAB PO SCH ×2 (09:12→21:49)
[2023-07-18] MEDS: DOXYCYCLINE HYCLATE 100 MG CAP PO SCH ×2 (09:12→21:49)
[2023-07-18] MEDS: UMECLIDINIUM BROMIDE 62.5MCG/BLISTER 7 PUFFS/INHALER INH SCH (11:04)
[2023-07-18] MEDS: FLUTICASONE/VILANTEROL 100/25MCG 14 PUFFS/INHALER INH SCH (11:04)
[2023-07-18] MEDS: guaiFENesin/DEXTROM SYRUP 100MG/10MG 5ML UDC PO SCH ×3 (13:37→23:05)
[2023-07-18] MEDS: methylPREDNISolone 40 MG in SYRINGE 0 ML IV SCH ×2 (13:37→21:49)
--- NOTE | 2023-07-18 16:09 | Hospitalist Progress Note ---
Date of Service July 18, 2023 Assessment & Plan (1) Right lower lobe pneumonia: Plan 72-year-old lady with PMH of COPD, moderate AAS, JEMIMA on nocturnal home oxygen, PVD, HTN, HLD, T2DM on oral meds, CKD [baseline creatinine 1], chronic anemia [baseline hemoglobin 10-11], GERD, chronic pain, RLS, urolithiasis, anxiety/mood disorder, past tobacco abuse presented with complaint of 2 days history of cough with yellow sputum associated with fever and wheezing. Also reports chest pain at the lower rib cage from coughing. Denies aspiration. She is being managed for the following: Pneumonia Sepsis POA: Likely secondary to above. Admitting WBC 17.05K, elevated pulse rate. COPD exacerbation: Secondary to above Admitting CXR with right lung base consolidation. Continue with nebs RTC, p.o. steroids changed to IV, continue to taper steroid for clinical response Patient started on Rocephin and doxycycline 07/17, continue same, sputum color improving Follow admitting cultures. Patient reports feeling not much different than yesterday. WBC trending down. We will follow Acute kidney injury: Baseline creatinine around 1, admitting creatinine of 1.41. Hold nephrotoxic, status post IV fluid, creatinine trending down, BMP in AM. Demand ischemia: Troponin elevated but downtrending, patient with no chest pain, likely secondary to acute illness. Telemetry monitoring. Other chronic medical conditions: Continue with/resume home meds as and when able. hx moderate JEMIMA on nocturnal home O2 hx PVD hypertension, BP stable DM 2 on oral medications, well-controlled as of recent hemoglobin A1c of 6.21 February 2023, a1c of 5.9 this admission. Chronic anemia, hemoglobin at baseline GERD, stable on regimen anxiety/mood disorder, at baseline past tobacco abuse DVT prophylaxis: Heparin subcu Full code Admission and Anticipated Discharge Date Admission Date: July 17, 2023 Subjective Patient was seen and examined at bedside. Patient was lying in bed, on 2 L oxygen via nasal cannula, reports about the same cough but light yellow sputum today, reports not feeling much better, will change her p.o. steroid to IV, Robitussin-DM added. Denies other ROS. Physical Exam Physical Exam: GENERAL: Alert and oriented x3. NAD, on RA. Appears ill/weak. HEENT: No pallor, no icterus. Pupils equal, round and reactive to light. Oral mucosa moist. NECK: No JVD, no neck masses. HEART: S1 and S2 heard. Regular rate and rhythm. No murmur, no gallop. RESPIRATORY SYSTEM: Normal AP diameter. No accessory muscle use. Bilateral wheezing, occasional crackles. ABDOMEN: Soft, bowel sounds present, nontender, no distention. CENTRAL NERVOUS SYSTEM: No facial droop. Speech is clear. Obeys simple commands. Moves extremities. EXTREMITIES: No edema, no erythema seen. Results & Data Results & Data Vital Signs (Past 12 Hours) Vital Signs Temp Pulse Pulse Resp BP Pulse Ox O2 Del Method 07/18/23 12:05 36.3 C L 74 18 106/62 100 Nasal Cannula, Nebulizer 07/18/23 11:26 76 18 95 Nasal Cannula 07/18/23 08:00 Room Air 07/18/23 07:49 77 07/18/23 07:46 36.6 C 74 20 118/79 93 Room Air 07/18/23 07:10 71 18 95 Nasal Cannula O2 Flow Rate 07/18/23 12:05 2 07/18/23 11:26 2 07/18/23 08:00 07/18/23 07:49 07/18/23 07:46 07/18/23 07:10 2 (1) Right lower lobe pneumonia Pneumonia type: due to unspecified organism Qualified Code(s): J18.9 - Pneumonia, unspecified organism
[2023-07-18] MEDS: AMITRIPTYLINE HCL 25 MG TAB PO SCH (21:49)
[2023-07-18] MEDS: rOPINIRole HCL 1 MG TABLET PO SCH (21:49)
[2023-07-19] MEDS: IPRATROPIUM BROMIDE NEB SOLN 0.02% 2.5 ML VIAL INH SCH ×4 (01:57→19:30)
[2023-07-19] MEDS: LEVALBUTEROL 1.25 MG/3 ML NEB NEB SCH ×4 (01:57→19:30)
[2023-07-19] MEDS: methylPREDNISolone 40 MG in SYRINGE 0 ML IV SCH ×3 (04:57→21:05)
[2023-07-19] MEDS: HEPARIN SOD 5,000 UNIT/0.5 ML VIAL SQ SCH ×3 (04:59→21:05)
[2023-07-19] MEDS: guaiFENesin/DEXTROM SYRUP 100MG/10MG 5ML UDC PO SCH ×4 (04:59→23:48)
[2023-07-19 06:27] LABS: Hematocrit (blood only) 30.9 % (37.0-47.0); Hemoglobin 9.9 g/dl (12.0-16.0); Mean Corpuscular Hemoglobin 27.7 pg (25.0-34.0); Mean Corpuscular Volume 86.3 fL (80.0-100.0); Mean Platelet Volume 13.7 fL (9.4-12.4); Platelet Count 125 K/uL (130-400); RDW Coefficient of Variation 14.9 % (11.5-14.5); RDW Standard Deviation 47.2 fL (36.4-46.3); Red Blood Count 3.58 M/uL (4.20-5.40); White Blood Count 6.97 K/ul (4.8-10.8)
[2023-07-19 06:55] LABS: BUN Creatinine Ratio 23.2 (10-20); Calcium 8.7 mg/dl (8.6-10.3); Creatinine Clr Calc Pharmacy 40.7 ml/min; Est GFR (African American) 44.2 ml/min; Est GFR (Non-African American) 38.1 ml/min; Magnesium 2.1 mg/dl (1.7-2.4); Phosphorus 3.1 mg/dl (2.5-4.9); Potassium 4.6 mmol/L (3.5-5.1)
[2023-07-19] MEDS: cefTRIAXone SODIUM 2,000 MG in DEXTROSE 5 % MINI-B 50 ML IV SCH (09:47)
[2023-07-19] MEDS: INSULIN ASPART PER UNIT CHARGE SC SCH ×4 (09:47→21:04)
[2023-07-19] MEDS: LANTUS PER UNIT CHARGE SQ SCH (09:47)
[2023-07-19] MEDS: FLUTICASONE/VILANTEROL 100/25MCG 14 PUFFS/INHALER INH SCH (09:50)
[2023-07-19] MEDS: UMECLIDINIUM BROMIDE 62.5MCG/BLISTER 7 PUFFS/INHALER INH SCH (09:50)
[2023-07-19] MEDS: DOXYCYCLINE HYCLATE 100 MG CAP PO SCH ×2 (09:51→21:04)
[2023-07-19] MEDS: ASPIRIN 81 MG ECTAB PO SCH (09:51)
[2023-07-19] MEDS: MONTELUKAST SODIUM 10 MG TABLET PO SCH (09:51)
[2023-07-19] MEDS: buPROPion XL 150 MG TABCR PO SCH (09:51)
[2023-07-19] MEDS: ATORVASTATIN 40 MG TAB PO SCH (09:51)
[2023-07-19] MEDS: PANTOprazole 40 MG TAB PO SCH ×2 (09:51→21:04)
[2023-07-19] MEDS: BACLOFEN 10 MG TAB PO SCH ×2 (09:53→21:04)
--- NOTE | 2023-07-19 15:39 | Hospitalist Progress Note ---
Date of Service July 19, 2023 Assessment & Plan (1) Right lower lobe pneumonia: Plan 72-year-old lady with PMH of COPD, moderate AAS, JEMIMA on nocturnal home oxygen, PVD, HTN, HLD, T2DM on oral meds, CKD [baseline creatinine 1], chronic anemia [baseline hemoglobin 10-11], GERD, chronic pain, RLS, urolithiasis, anxiety/mood disorder, past tobacco abuse presented with complaint of 2 days history of cough with yellow sputum associated with fever and wheezing. Also reports chest pain at the lower rib cage from coughing. Denies aspiration. She is being managed for the following: Pneumonia Sepsis POA: Likely secondary to above. Admitting WBC 17.05K, elevated pulse rate. COPD exacerbation: Secondary to above Admitting CXR with right lung base consolidation. Continue with nebs RTC, p.o. steroids changed to IV --taper iv steroid, improving cough per pt. Patient started on Rocephin and doxycycline 07/17, continue same, sputum color improving Follow admitting cultures. Sputum w/ staph, f/u final c/s. Patient reports feeling much better. WBC trending down. We will follow Acute kidney injury: Baseline creatinine around 1, admitting creatinine of 1.41. Hold nephrotoxic, gentle ivf, creatinine trending down slowly, BMP in AM. Demand ischemia: Troponin elevated but downtrending, patient with no chest pain, likely secondary to acute illness. Telemetry monitoring. Other chronic medical conditions: Continue with/resume home meds as and when able. hx moderate JEMIMA on nocturnal home O2 hx PVD hypertension, BP stable DM 2 on oral medications, well-controlled as of recent hemoglobin A1c of 6.21 February 2023, a1c of 5.9 this admission. Chronic anemia, hemoglobin at baseline GERD, stable on regimen anxiety/mood disorder, at baseline past tobacco abuse DVT prophylaxis: Heparin subcu Full code Admission and Anticipated Discharge Date Admission Date: July 17, 2023 Subjective Patient was seen and examined at bedside. Patient was sitting up in bed, on RA, reports improving cough and hence lower ri bcage pain, reports feeling better, taper down iv steroid. Denies other ROS. Physical Exam Physical Exam: GENERAL: Alert and oriented x3. NAD, on RA. HEENT: No pallor, no icterus. Pupils equal, round and reactive to light. Oral mucosa moist. NECK: No JVD, no neck masses. HEART: S1 and S2 heard. Regular rate and rhythm. No murmur, no gallop. RESPIRATORY SYSTEM: Normal AP diameter. No accessory muscle use. Bilateral wheezing, occasional crackles. ABDOMEN: Soft, bowel sounds present, nontender, no distention. CENTRAL NERVOUS SYSTEM: No facial droop. Speech is clear. Obeys simple commands. Moves extremities. EXTREMITIES: No edema, no erythema seen. Results & Data Results & Data Vital Signs (Past 12 Hours) Vital Signs Temp Pulse Pulse Resp BP Pulse Ox O2 Del Method 07/19/23 11:22 36.7 C 81 18 131/60 95 Room Air 07/19/23 10:50 66 18 96 Nasal Cannula 07/19/23 08:00 Nasal Cannula 07/19/23 08:00 87 07/19/23 07:23 36.6 C 91 H 18 136/73 98 Nebulizer 07/19/23 07:18 66 18 92 Room Air O2 Flow Rate 07/19/23 11:22 07/19/23 10:50 2 07/19/23 08:00 2 07/19/23 08:00 07/19/23 07:23 07/19/23 07:18 (1) Right lower lobe pneumonia Pneumonia type: due to unspecified organism Qualified Code(s): J18.9 - Pneumonia, unspecified organism
[2023-07-19] MEDS: SODIUM CHLORIDE 0.9% 1,000 ML IV SCH (16:04)
[2023-07-19] MEDS: AMITRIPTYLINE HCL 25 MG TAB PO SCH (21:04)
[2023-07-19] MEDS: rOPINIRole HCL 1 MG TABLET PO SCH (21:04)
[2023-07-20] MEDS: IPRATROPIUM BROMIDE NEB SOLN 0.02% 2.5 ML VIAL INH SCH ×3 (00:09→10:57)
[2023-07-20] MEDS: LEVALBUTEROL 1.25 MG/3 ML NEB NEB SCH ×3 (00:12→10:57)
[2023-07-20] MEDS: HEPARIN SOD 5,000 UNIT/0.5 ML VIAL SQ SCH ×2 (06:19→13:05)
[2023-07-20] MEDS: guaiFENesin/DEXTROM SYRUP 100MG/10MG 5ML UDC PO SCH ×3 (06:19→17:45)
[2023-07-20] MEDS: SODIUM CHLORIDE 0.9% 1,000 ML IV SCH (07:38)
[2023-07-20 07:45] LABS: Hematocrit (blood only) 29.1 % (37.0-47.0); Hemoglobin 9.4 g/dl (12.0-16.0); Mean Corpuscular Hemoglobin 27.4 pg (25.0-34.0); Mean Corpuscular Hgb Conc 32.3 g/dL (32.0-36.0); Mean Corpuscular Volume 84.8 fL (80.0-100.0); Mean Platelet Volume 13.8 fL (9.4-12.4); Platelet Count 130 K/uL (130-400); RDW Coefficient of Variation 14.8 % (11.5-14.5); RDW Standard Deviation 46.3 fL (36.4-46.3); Red Blood Count 3.43 M/uL (4.20-5.40); White Blood Count 7.89 K/ul (4.8-10.8)
[2023-07-20 07:56] LABS: BUN Creatinine Ratio 28.9 (10-20); Calcium 8.9 mg/dl (8.6-10.3); Est GFR (African American) 42.7 ml/min; Est GFR (Non-African American) 36.8 ml/min; Potassium 4.3 mmol/L (3.5-5.1)
[2023-07-20] MEDS: ATORVASTATIN 40 MG TAB PO SCH (08:27)
[2023-07-20] MEDS: MONTELUKAST SODIUM 10 MG TABLET PO SCH (08:28)
[2023-07-20] MEDS: buPROPion XL 150 MG TABCR PO SCH (08:28)
[2023-07-20] MEDS: ASPIRIN 81 MG ECTAB PO SCH (08:28)
[2023-07-20] MEDS: PANTOprazole 40 MG TAB PO SCH (08:28)
[2023-07-20] MEDS: methylPREDNISolone 40 MG in SYRINGE 0 ML IV SCH (08:29)
[2023-07-20] MEDS: FLUTICASONE/VILANTEROL 100/25MCG 14 PUFFS/INHALER INH SCH (08:29)
[2023-07-20] MEDS: DOXYCYCLINE HYCLATE 100 MG CAP PO SCH (08:29)
[2023-07-20] MEDS: UMECLIDINIUM BROMIDE 62.5MCG/BLISTER 7 PUFFS/INHALER INH SCH (08:30)
[2023-07-20] MEDS: BACLOFEN 10 MG TAB PO SCH (08:37)
[2023-07-20] MEDS: INSULIN ASPART PER UNIT CHARGE SC SCH ×3 (08:44→17:49)
[2023-07-20] MEDS: LANTUS PER UNIT CHARGE SQ SCH (08:45)
[2023-07-20] MEDS: cefTRIAXone SODIUM 2,000 MG in DEXTROSE 5 % MINI-B 50 ML IV SCH (08:57)
--- NOTE | 2023-07-20 12:57 | Discharge Summary ---
Date of Service July 20, 2023 Admission HPI Per Admitting Provider History obtained from patient, family, and records. Medical history significant for moderate , COPD, JEMIMA on nocturnal home O2, PVD, hypertension, hyperlipidemia, DM 2 on oral medications, CRI (baseline creatinine 1.1), chronic anemia (baseline hemoglobin 10-11), GERD, chronic pain, RLS, urolithiasis, anxiety/mood disorder, past tobacco abuse. Last [facility] confinement February 2022 for E. coli septicemia secondary to pyelonephritis. Patient confined at [facility] February 2023 for urosepsis status post stent placement. Retained left stent subsequently removed via outpatient cystoscopy at [facility] 2 mon ths ago. 2 days ago, patient noted cough symptoms productive of junky yellow sputum. Chest pain from coughing. Poor appetite. Denies fluid retention. Denies aspiration. Possible sick contacts. Has received COVID-19 vaccination. Lowest O2 sats of 80s noted at home. Patient went to [facility] ER yesterday. She was told she had pneumonia on the right side. Patient refused admission because she preferred to be confined at [facility]. Zosyn and neb treatment administered at the ER. Medical History as above Surgical History : Urologic procedures, cataract surgery, tonsillectomy, breast biopsy Family History : Heart disease, breast cancer, colon cancer Personal/Social history : Past tobacco abuse, rare EtOH intake, disabled Admission Exam Per Admitting Provider GENERAL: Comfortable, obese, no respiratory distress SKIN: Pallor, warm HEENT: Pale palpebral conjunctivae, no ptosis, dry buccal mucosa NECK : Supple, short neck, no tenderness CHEST : Decreased breath sounds, occasional expiratory wheezes, no tenderness HEART : RRR, systolic murmur ABDOMEN: Some distention, nontender EXTREMITIES : Minimal LE swelling, no LE tenderness, no other conspicuous deformities noted NEUROLOGIC : Coherent, no facial asymmetry, no other gross focality Principal Diagnosis Right lower lobe pneumonia COPD exacerbation Sepsis POA Discharge Exam GENERAL: Alert and oriented x3. NAD, on RA. HEENT: No pallor, no icterus. Pupils equal, round and reactive to light. Oral mucosa moist. NECK: No JVD, no neck masses. HEART: S1 and S2 heard. Regular rate and rhythm. No murmur, no gallop. RESPIRATORY SYSTEM: Normal AP diameter. No accessory muscle use. Bilateral wheezing, occasional crackles. ABDOMEN: Soft, bowel sounds present, nontender, no distention. CENTRAL NERVOUS SYSTEM: No facial droop. Speech is clear. Obeys simple commands. Moves extremities. EXTREMITIES: No edema, no erythema seen. Discharge Data Allergies Allergy/AdvReac Type Severity Reaction Status Date / Time aspirin Allergy Intermediate Patient Verified 09/14/22 11:25 can take upto 81 mg of ASA not any higher- hives NSAIDS (Non-Steroidal Allergy Intermediate hives Verified 09/14/22 11:25 Anti-Inflamma ciprofloxacin Allergy Hives Verified 09/14/22 11:25 tramadol AdvReac Intermediate URINARY Verified 09/14/22 11:25 RETENTION Consultations 07/17/23 04:19 ED Decision to Admit Stat Hospital Course (1) Right lower lobe pneumonia: Plan 72-year-old lady with PMH of COPD, moderate AAS, JEMIMA on nocturnal home oxygen, PVD, HTN, HLD, T2DM on oral meds, CKD [baseline creatinine 1], chronic anemia [baseline hemoglobin 10-11], GERD, chronic pain, RLS, urolithiasis, anxiety/mood disorder, past tobacco abuse presented with complaint of 2 days history of cough with yellow sputum associated with fever and wheezing. Also reports chest pain at the lower rib cage from coughing. Denies aspiration. She was managed for the following: Pneumonia Sepsis POA: Likely secondary to above. Admitting WBC 17.05K, elevated pulse rate. COPD exacerbation: Secondary to above Admitting CXR with right lung base consolidation. Continue with nebs RTC, p.o. steroids changed to IV --taper iv steroid, improving cough per pt. Patient started on Rocephin and doxycycline 07/17, sputum w/ mrsa. c/w cefdinir and doxy to complete the course. Follow admitting cultures. Sputum w/ staph, f/u final c/s. Patient reports feeling much better. WBC trending down. Hemodynamically stable and would like to go. Acute kidney injury - likely not present to begin with: Baseline creatinine around 1 upon hospital EMR review but outpatient chart review reveals creatinine hovering around 1.3-1.4 in the last year which might be her new baseline. Hence she has CKD and not NICHELLE component on it. DC IV fluid, resume home medications. Demand ischemia: Troponin elevated but downtrending, patient with no chest pain, likely secondary to acute illness. Other chronic medical conditions: Continue with/resume home meds as and when able. hx moderate JEMIMA on nocturnal home O2 hx PVD hypertension, BP stable DM 2 on oral medications, well-controlled as of recent hemoglobin A1c of 6.21 February 2023, a1c of 5.9 this admission. Chronic anemia, hemoglobin at baseline GERD, stable on regimen anxiety/mood disorder, at baseline past tobacco abuse DVT prophylaxis: Heparin subcu Full code Patient is being discharged to home with following instruction at the point of discharge: Follow-up with your primary care physician within a week time and likely you will need labs CBC/CMP/magnesium/phosphorus. For your pneumonia and COPD exacerbation, you are being discharged on antibiotic and steroid. Complete the course as prescribed. Take your medications as prescribed. Please make sure that you are able to get your medications today by calling your pharmacy before you leave the hospital so that your treatment continuity is not broken. Home Health Attestation I certify that this patient is under my care and that I, or a physicians phlebotomist lab assistant working with me, had a face to-face encounter that meets the home health [id number] encounter requirements with this patient. The encounter with the patient was in whole, or in part, for the following medical condition, which is the primary reason for home health care (list medical condition): I certify that, based on my findings, the following services are medically necessary home health services: My clinical findings support the need for the above services because: Further, I certify that my clinical findings support that this patient is homebound (i.e. absences from home require considerable and taxing effort and are for medical reasons or mu-ism services or infrequently or of short duration when for other reasons) because: Certification for Home Health Services: Based on the above findings, I certify that this patient is confined to the home and needs intermittent chcf care, physical therapy and/or speech therapy or continues to need occupational therapy. The patient is under my care, and I have initiated the establishment of the plan of care. This patient will be followed by a physician who will periodically review the plan of care. Total Time Total Time Spent Total Time Spent (In Minutes): 45 Discharge Plan Discharge Items Patient Disposition: Home - Self-Care Reason For Visit: SEPSIS Discharge Diagnosis: Right lower lobe pneumonia COPD exacerbation Sepsis POA Condition on Discharge: Good Activity: Resume your previous activity Non-emergency contact: Primary Care Provider Call non-emergency contact if: you have any medication questions, your symptoms worsen and your temperature is above 101.5 Follow-up/Referrals: Moreno العلي MD [Primary Care Provider] - (Date & Time 07/24/2023 11:00 AM Provider Moreno العلي MD Department Family [facility] ) Diet: Carb Consistent or DM2 and Heart Healthy Addtl Attending Provider Instructions: Follow-up with your primary care physician within a week time and likely you will need labs CBC/CMP/magnesium/phosphorus. For your pneumonia and COPD exacerbation, you are being discharged on antibiotic and steroid. Complete the course as prescribed. Take your medications as prescribed. Please make sure that you are able to get your medications today by calling your pharmacy before you leave the hospital so that your treatment continuity is not broken. Pending Studies at Discharge: Yes Stand-Alone Forms: My [facility] Subarctic Limited, Smoking Cessation Medications and DC Order Prescriptions: New doxycycline hyclate 100 mg Capsule 100 mg PO BID 5 Days Qty: 10 0RF benzonatate 100 mg Capsule 100 mg PO TID PRN (Reason: cough) 5 Days Qty: 15 0RF dextromethorphan-guaifenesin 10-100 mg/5 mL Syrup 5 ml PO Q6H 5 Days Qty: 237 0RF cefdinir 300 mg capsule 300 mg PO BID 5 Days Qty: 10 0RF Probiotic 3 billion cell capsule 3,000 mmu cells PO DAILY 14 Days Qty: 14 0RF Rx Instructions: administer with a meal prednisone 20 mg tablet 40 mg PO DAILY 5 Days Qty: 10 0RF Continued albuterol sulfate 2.5 mg /3 mL (0.083 %) Solution For Nebulization 2.5 mg INHALATION Q4 PRN (Reason: as directed) atorvastatin 40 mg tablet 40 mg PO QAM alendronate [Fosamax] 70 mg tablet 70 mg PO WK Rx Instructions: TAKE EVERY THU. potassium chloride [Klor-Con 10] 10 mEq tablet extended release 10 meq PO AMHS aspirin 81 mg Tablet,Delayed Release (Dr/Ec) 81 mg PO QAM baclofen 10 mg tablet 10 mg PO AMHS pantoprazole [Protonix] 40 mg tablet,delayed release (DR/EC) 40 mg PO BID montelukast [Singulair] 10 mg Tablet 10 mg PO QAM furosemide [Lasix] 20 mg tablet 20 mg PO QAM docusate sodium 100 mg Tablet 100 mg PO BID PRN (Reason: Constipation) bupropion HCl [Wellbutrin XL] 150 mg tablet extended release 24 hr 150 mg PO QAM tiotropium bromide [Spiriva with HandiHaler] 18 mcg capsule, w/inhalation device 1 dose Inhalation QAM fluticasone propion-salmeterol 250-50 mcg/dose blister with device 1 inh INHALATION BID oxycodone-acetaminophen 10-325 mg tablet 1 tab PO Q6H PRN (Reason: Pain, Severe) polyethylene glycol 3350 [Miralax] 17 gram Powder In Packet 17 g PO DAILY PRN (Reason: constipation) Qty: 30 0RF losartan 50 mg tablet 75 mg PO QAM glipizide 5 mg tablet extended release 24hr 5 mg PO DAILY Rx Instructions: take 30 minutes before a meal trazodone 50 mg Tablet 50 mg PO HS PRN (Reason: Sleep) ropinirole 3 mg Tablet 3 mg PO HS Rx Instructions: administer 1-3 hours before bedtime lorazepam 0.5 mg Tablet 0.5 mg PO Q8 PRN (Reason: Anxiety) meclizine 12.5 mg Tablet 12.5 mg PO TID PRN (Reason: Dizziness) amitriptyline 25 mg tablet 25 mg PO HS ondansetron HCl 4 mg tablet 8 mg PO Q8 PRN (Reason: Nausea) ipratropium-albuterol 20-100 mcg/actuation Mist 1 puff INHALATION QID Rx Instructions: space evenly during waking hours Discharge Orders: Discharge Order (Routine); Ordered 07/20/23 Ordered By: Bart Ghosh Admission Data Admit Date/Time: 07/17/23 05:16 Attending Provider: Bart Ghosh Admit Provider: Kp Soto Primary Care Provider: Moreno العلي Other Providers: Kp Soto
== END 2023-07-20 19:37 | disposition home or self-care (01) | DRG 871 ==
LOC: ED 22:04 → INTOOBSV 07-17 05:16 → EDINP 07-17 05:16 → 2N 07-17 06:56

== ENCOUNTER 2025-08-06 15:05 | Observation (INO) ==
--- NOTE | 2025-08-06 15:21 | Emergency Department Note ---
Impression & Plan Acute dyspnea, Acute exacerbation of chronic obstructive pulmonary disease, Elevated brain natriuretic peptide (BNP) level ED Provider Note HISTORY OF PRESENT ILLNESS: Patient is a 74-year-old female presenting with shortness of breath. Patient reports for the last week she has been "sick with a cold." She describes her symptoms of being very short of breath with exertion. Reports she can only take about 5 steps before she has to stop to catch her breath. Denies any fevers or chills. She reports that she starts getting so short of breath she starts coughing but it is nonproductive. Denies any recent sick contact exposures. She states that she went to [facility] walk-in clinic today and her sats were in the 80s and they sent her to the ER. And route with EMS, she took 1 DuoNeb and 125 mg of IV Solu-Medrol. Patient was placed on 4 L nasal cannula with EMS. Patient reports at home she wears 3 to 4 L at baseline. She normally does not wear any supplemental oxygen when she is out. Denies any recent oral steroids or oral antibiotics. Denies any nausea or vomiting. Denies any diarrhea. Patient reports a history of A-fib and is on Eliquis. Denies any DVT or PE history. Denies any history of cardiac stents. ROS: as above PHYSICAL EXAM: Constitutional: Patient appears in no acute distress. Morbidly obese HENT: Head: Normocephalic and atraumatic. Eyes: EOMI, PERRL Mouth/Throat: Mucous membranes moist. Neck: Trachea midline. Neck supple. Cardiovascular: RRR, No murmurs, rubs or gallops. Intact distal pulses. Pulmonary/Chest: No respiratory distress. Breath sounds clear and equal bilaterally. Decreased breath sounds in the bilateral posterior lung bases. Expiratory wheezes noted in the upper posterior lung moe. Conversationally dyspneic. On 4 L nasal cannula. Abdominal: Abdomen soft, no tenderness, rebound or guarding. Musculoskeletal: No tenderness or deformity noted. Trace edema of the bilateral lower extremities. Skin: Warm and dry. No rash, erythema, pallor or cyanosis Psychiatric: Appropriate mood and affect for situation. Neurological: Alert and keenly responsive. CN II-XII grossly intact, moving all extremities equally and fully. MDM: - Vitals signs showed hypertension - History obtained via patient. History as above. - Chronic conditions affecting care: HTN; DM-2; COPD; HLD - Differential diagnoses include, but are not limited to: Congestive heart failure; acute coronary syndrome; COPD/asthma exacerbation; pulmonary edema; pulmonary embolism; pneumonia; pneumothorax; viral syndrome - Order placed for continuous cardiac monitoring. At this time, monitor showed rate of 90 bpm with normal sinus rhythm, per my interpretation. - External medical records reviewed. Discharge summary dated 02/03/2025 was reviewed. Patient was admitted at that time for a COPD exacerbation. - EKG image interpreted by myself showed normal sinus rhythm. Rate 90 bpm. QT 362. No acute ischemic changes. - Laboratory workup interpreted by myself showed normal WBC; normal PT/INR; normal troponin; elevated BNP (362) - CXR image reviewed interpreted by myself as needed for pneumonia, per my interpretation. - COVID/flu/RSV negative - Patient given an hour long duoneb treatment in the ER. On reassessment, patient's wheezes have improved, but she is still conversationally dyspneic on 4 L nasal cannula. She is likely having a COPD exacerbation, given her grossly unremarkable workup so far. Her BNP is slightly elevated and she does have some trace pitting edema on her lower extremities. She had a echocardiogram in December 2024 that showed a normal EF. However, will admit to hospitalist service for further evaluation and management. - Given 2 g IV Rocephin and 100 mg oral doxycycline for COPD exacerbation coverage. She already received 125 mg of IV Solu-Medrol prehospital. - Discussion was had with rehabilitation case coordinator about patient's case and need for admission - Hospitalist consulted for admission - Patient admitted to [facility] hospitalist service for further evaluation and management. ASSESSMENT AND PLAN: Diagnosis: Acute dyspnea; acute COPD exacerbation; elevated BNP Plan: Admit Past Med/Surg History Problem List (Updated 08/06/25 @ 17:10 by Fabiana Edwards MD) Elevated brain natriuretic peptide (BNP) level (Acute) Acute exacerbation of chronic obstructive pulmonary disease (Acute) Acute dyspnea (Acute) Closed fracture of right patella (Acute) Patella fracture Rotator cuff arthropathy of right shoulder (Acute) RLS (restless legs syndrome) Depression HLD (hyperlipidemia) DMII (diabetes mellitus, type 2) COPD (chronic obstructive pulmonary disease) (Acute) Encounter for pre-operative examination HTN (hypertension) Degloving injury of left lower leg (Acute) Medical History (Updated 08/06/25 @ 17:10 by Fabiana Edwards MD) Depression HLD (hyperlipidemia) Short-term memory loss Ongoing, stable PAF (paroxysmal atrial fibrillation) Initial dx 2022, started on Eliquis 12/2024 after noted recurrence per [facility] cardio records [facility] cardio consult (during [facility] admission): "Aortic valve stenosis. Moderate via December 2024 echocardiography obtained at the time of dobutamine stress testing. Recommend follow-up resting echocardiography in December 2025.. Paroxysmal atrial fibrillation. First observed in February 2023. High likelihood of reoccurrence, and progression. Patient asymptomatic. Recommend adding metoprolol succinate 12.5 mg/day. [id number] Score 6 points. Benefits of anticoagulation appear to be greater then the risk. Continue apixaban (Eliquis) 5 mg twice per day. Longstanding untreated obstructive sleep apnea. Nocturnal hypoxemia treated with supplemental oxygen." Diastolic congestive heart failure hx CKD (chronic kidney disease) stage 3, GFR 30-59 ml/min Hearing loss "doesn't like to use hearing aids" Chronic coughing Migraines Weakness Frequent falls "has gotten better since having wheelchair" Rotator cuff arthropathy of right shoulder Hypertension Asthma COPD (chronic obstructive pulmonary disease) Follows with [facility] Pulmonology Anemia Chronic, baseline hgb 9-11 range per chart review Kidney stones Multiple, no current problems Iron deficiency Per records DVT (deep venous thrombosis) After delivery > LLE On home oxygen therapy 4L >"using almost continuously" Morbid obesity Sleep apnea Per records Patient denies hx of formal sleep study or device. + snoring Spinal stenosis no surgeries RLS (restless legs syndrome) Osteoarthritis "everywhere" Non-rheumatic aortic stenosis Follows with [facility] [place] cardio Echo 10/13/24: "Moderate" aortic stenosis (LINDA 1.6cm2, AV MG 16.1mmhg) DSE 01/11/25: Moderate aortic stenosis (image + doppler assessment of aortic stenosis severity discordant per report) Nocturnal hypoxia 3.5L HS (+ with naps/sleep) Dyslipidemia Diabetes mellitus type 2, diet-controlled NIDDM Chronic low back pain Acid reflux Surgical History (Updated 08/02/25 @ 12:29 by Tasha Cooper) History of esophagogastroduodenoscopy (EGD) (2020) History of colonoscopy (2020) History of lithotripsy History of tooth extraction "unable to wear dentures" History of cataract surgery R/L Hx of tonsillectomy Family History Mother Diabetes Breast cancer Brother Colon cancer Daughter Family history of reaction to anesthesia Social History Smoking Status: Former smoker Tobacco Type: Cigarettes Second Hand Exposure: No; Do You Dip or Chew Tobacco: No; Hx Alcohol Use: Yes Alcohol type: hard liquor Hx Substance Use: No Preferred Language: Comoran Communication Ability: Effective Oil Pit Attendant Required: No Beliefs That Will Affect Care: None marital status: Current Living Situation: Family Current Living Situation Comment: son lives with me How many Children do You have: 2 Feels Safe at Home: Yes Assistive Devices: Denture - Upper, Denture - Lower, Glasses, Hearing Aid - Bilateral, Nebulizer, Oxygen - Continuous, Walker and Wheelchair Allergies Allergies Allergy/AdvReac Type Severity Reaction Status Date / Time aspirin Allergy Intermediate Hives Verified 08/02/25 12:13 (with higher than 81mg doses) & see notes ciprofloxacin Allergy Intermediate Hives Verified 08/02/25 12:13 NSAIDS (Non-Steroidal Allergy Intermediate Hives Verified 08/02/25 12:13 Anti-Inflamma tramadol AdvReac Intermediate Urinary Verified 08/02/25 12:13 Retention Home Meds Home Medications Medication Instructions Recorded Confirmed alendronate 70 mg tablet (Fosamax) 70 mg PO WK 06/09/18 08/02/25 aspirin 81 mg tablet,delayed 81 mg PO QAM 06/09/18 08/02/25 release atorvastatin 40 mg tablet 40 mg PO QAM 06/09/18 08/02/25 baclofen 10 mg tablet 10 mg PO TID 06/09/18 08/02/25 bupropion HCl 150 mg 24 hr tablet, 150 mg PO QAM 06/09/18 08/02/25 extended release (Wellbutrin XL) furosemide 20 mg tablet (Lasix) 20 mg PO QAM PRN Fluid Retention 06/09/18 08/02/25 montelukast 10 mg tablet 10 mg PO QAM 06/09/18 08/02/25 (Singulair) pantoprazole 40 mg tablet,delayed 40 mg PO BIDM 06/09/18 08/02/25 release (Protonix) potassium chloride 10 mEq 10 meq PO BID 06/09/18 08/02/25 tablet,extended release (Klor-Con) tiotropium bromide 18 mcg capsule 18 mcg inhalation QAM 06/09/18 08/02/25 with inhalation device (Spiriva with HandiHaler) albuterol sulfate 2.5 mg/3 mL 2.5 mg inhalation Q4H Shortness Of 08/04/19 08/02/25 (0.083 %) solution for nebulization Breath Or Wheezing fluticasone 250 mcg-salmeterol 50 1 inh inhalation BID 03/04/22 08/02/25 mcg/dose blistr powdr for inhalation oxycodone-acetaminophen 10 mg-325 1 tab PO BID PRN Pain, Severe 03/04/22 08/02/25 mg tablet ipratropium 20 mcg-albuterol 100 1 puff inhalation QID PRN Wheezing 07/17/23 08/02/25 mcg/actuation mist for inhalation (Combivent Respimat) ropinirole 4 mg tablet 4 mg PO QPM 01/12/25 08/02/25 apixaban 5 mg tablet (Eliquis) 5 mg PO BID 01/14/25 08/02/25 glipizide 2.5 mg tablet, extended 2.5 mg PO QAM 07/02/25 08/02/25 release 24 hr ipratropium 0.5 mg-albuterol 3 mg 3 ml inhalation Q6H PRN Shortness 07/02/25 08/02/25 (2.5 mg base)/3 mL nebulization Of Breath soln loratadine 10 mg tablet (Claritin) 10 mg PO QAM 07/02/25 08/02/25 losartan 25 mg tablet 25 mg PO QAM 07/02/25 08/02/25 metoprolol succinate 25 mg 12.5 mg PO QAM 07/02/25 08/02/25 tablet,extended release 24 hr nitroglycerin 0.4 mg sublingual 0.4 mg sublingual DIRECTED PRN 07/02/25 08/02/25 tablet (Nitrostat) Chest Pain ondansetron 8 mg disintegrating 8 mg translingual Q8H PRN 07/02/25 08/02/25 tablet NAUSEA/VOMITING pregabalin 100 mg capsule 100 mg PO BID 07/02/25 08/02/25 cyanocobalamin (vitamin B-12) 1 tab PO QAM 08/02/25 08/02/25 Results & Data (ED) Vital Signs Vital Signs - 24 hr 08/06/25 15:11 08/06/25 15:30 08/06/25 15:42 Temperature 36.6 C Temperature Source Oral Pulse Rate 85 Pulse Rate [Apical] 85 76 Respiratory Rate 18 16 20 Respiratory Effort / Characteristics Spontaneous Blood Pressure 192/137 H Blood Pressure [Right Arm] 183/116 H Blood Pressure Mean 155 Blood Pressure Mean [Right Arm] 138 Pulse Oximetry 97 98 98 Oxygen Delivery Method Nasal Cannula Nasal Cannula Nasal Cannula Oxygen Flow Rate 4 4 4 Sepsis Recent Fever Within 48 Hours No Sepsis New/Unexplained Change in Mental Status No Sepsis Action Taken by Nursing No Action Required 08/06/25 16:01 08/06/25 16:30 Temperature Temperature Source Pulse Rate 83 Pulse Rate [Apical] 90 Respiratory Rate 20 Respiratory Effort / Characteristics Blood Pressure Blood Pressure [Right Arm] 166/90 H Blood Pressure Mean Blood Pressure Mean [Right Arm] 115 Pulse Oximetry 97 Oxygen Delivery Method Nasal Cannula Oxygen Flow Rate 4 Sepsis Recent Fever Within 48 Hours Sepsis New/Unexplained Change in Mental Status Sepsis Action Taken by Nursing Laboratory Data 08/06/25 15:15 08/06/25 15:15 Lab Results 08/06/25 Range/Units 15:15 WBC 7.31 (4.8-10.8) K/ul RBC 4.02 L (4.20-5.40) M/uL Hgb 10.1 L (12.0-16.0) g/dL Hct 33.9 L (37.0-47.0) % MCV 84.3 (80.0-100.0) fL MCH 25.1 (25.0-34.0) pg MCHC 29.8 L (32.0-36.0) g/dL RDW Std Deviation 51.3 H (36.4-46.3) fL RDW Coeff of Isak 16.6 H (11.5-14.5) % Plt Count 139 (130-400) K/uL MPV 12.6 H (9.4-12.4) fL Immature Gran % (Auto) 0.3 % Neut % (Auto) 75.1 % Lymph % (Auto) 15.6 % Emmet % (Auto) 7.4 % Eos % (Auto) 1.2 % Baso % (Auto) 0.4 % Neut # (Auto) 5.49 (1.40-6.50) K/uL Lymph # (Auto) 1.14 L (1.20-3.40) K/uL Emmet # (Auto) 0.54 (0.11-0.59) K/uL Eos # (Auto) 0.09 (0.00-0.50) K/uL Baso # (Auto) 0.03 (0.00-0.20) K/uL Immature Gran # (Auto) 0.02 (0.01-0.20) K/uL PT 11.5 (9.0-12.0) Seconds INR 1.1 (0.9-1.1) Sodium 143 (136-145) mmol/L Potassium 4.3 (3.5-5.1) mmol/L Chloride 106 (98-107) mmol/L Carbon Dioxide 31 (21-32) mmol/L Anion Gap 6 (3-11) BUN 21 (6-23) mg/dl Creatinine 1.22 H (0.6-1.2) mg/dl Est Cr Clr Drug Dosing 49.3 ml/min eGFR 46.57 BUN/Creatinine Ratio 17.2 (10-20) Glucose 110 H (70-99(Fasting)) mg/dl Lactate 0.8 (0.4-2.0) mmol/L Calcium 9.2 (8.6-10.3) mg/dl Magnesium 2.0 (1.7-2.4) mg/dl Total Bilirubin 0.6 (0.2-1.0) mg/dl AST 15 (13-39) U/L ALT 15 (7-52) U/L Alkaline Phosphatase 96 (34-104) U/L Troponin I High Sens 13.1 (0-14) pg/ml B-Natriuretic Peptide 362 H (0-100) pg/ml Total Protein 6.8 (6.0-8.3) gm/dl Albumin 4.1 (3.4-5.0) gm/dl Globulin 2.7 (2.5-4.0) gm/dl Albumin/Globulin Ratio 1.5 (0.9-2) SARS-CoV-2 (PCR) NEGATIVE (Negative) Influenza Type A (PCR) Negative (Neg) Influenza Type B (PCR) Negative (Neg) RSV (RT-PCR) Negative (Neg) Administered Medications Discontinued Medications Albuterol (Albut/Ipratrop 3mg/0.5mg Neb 3 Ml Vial) 12 ml NEB ONE ONE; Protocol Stop: 08/06/25 15:25 Last Admin: 08/06/25 15:42 Dose: 12 ml Documented By: EML Imaging Data Radiologist's Impression: Chest X-Ray 08/06/25 15:13 COMPARISON: 04/25/2025 FINDINGS: HEART: Heart size is stable. LUNGS: No focal consolidation, pleural effusion, or vascular congestion. There is some pulmonary scarring MEEDIASTINUM: Unremarkable. BONES: Bony thorax appears intact. OTHER: Unremarkable. IMPRESSION: No acute disease. Electronically signed by Katie Lyons 08-06-2025 3:44 PM Discharge Plan Visit Data Chief Complaint: Shortness of Breath/Dyspnea Stated Complaint: SOB ED Provider: Fabiana Edwards Discharge Problem: Acute dyspnea, Acute exacerbation of chronic obstructive pulmonary disease, Elevated brain natriuretic peptide (BNP) level Patient Disposition: Admitted As Inpatient Condition: Fair Forms Stand Alone Forms: My [facility] [employer] Prescriptions Prescriptions: No Action albuterol sulfate 2.5 mg /3 mL (0.083 %) Solution For Nebulization 2.5 mg INHALATION Q4H atorvastatin 40 mg tablet 40 mg PO QAM alendronate [Fosamax] 70 mg tablet 70 mg PO WK Patient Comments: thu Rx Instructions: WEDN[facility]DA[facility] potassium chloride [Klor-Con 10] 10 mEq tablet extended release 10 meq PO BID aspirin 81 mg Tablet,Delayed Release (Dr/Ec) 81 mg PO QAM baclofen 10 mg tablet 10 mg PO TID pantoprazole [Protonix] 40 mg tablet,delayed release (DR/EC) 40 mg PO BIDM montelukast [Singulair] 10 mg Tablet 10 mg PO QAM furosemide [Lasix] 20 mg tablet 20 mg PO QAM PRN (Reason: Fluid Retention) Patient Comments: don't always take every morning depending on daily schedule bupropion HCl [Wellbutrin XL] 150 mg tablet extended release 24 hr 150 mg PO QAM tiotropium bromide [Spiriva with HandiHaler] 18 mcg capsule, w/inhalation device 18 mcg Inhalation QAM Rx Instructions: TAKE 2 INHALATIONS fluticasone propion-salmeterol 250-50 mcg/dose blister with device 1 inh INHALATION BID oxycodone-acetaminophen 10-325 mg tablet 1 tab PO BID PRN (Reason: Pain, Severe) Combivent Respimat 20-100 mcg/actuation Mist 1 puff INHALATION QID PRN (Reason: Wheezing) Patient Comments: uses every morning and every night Rx Instructions: space evenly during waking hours ropinirole 4 mg Tablet 4 mg PO QPM Rx Instructions: administer 1-3 hours before bedtime Eliquis 5 mg tablet 5 mg PO BID Patient Comments: don't know why I am on this ipratropium-albuterol [DuoNeb] 0.5 mg-3 mg(2.5 mg base)/3 mL Solution For Nebulization 3 ml INHALATION Q6H PRN (Reason: Shortness Of Breath) ondansetron 8 mg tablet,disintegrating 8 mg translingual Q8H PRN (Reason: NAUSEA/VOMITING) glipizide 2.5 mg tablet extended release 24hr 2.5 mg PO QAM losartan 25 mg tablet 25 mg PO QAM nitroglycerin [Nitrostat] 0.4 mg Tablet, Sublingual 0.4 mg sublingual DIRECTED MDD 3 DOSES/15 MINUTES PRN (Reason: Chest Pain) metoprolol succinate 25 mg tablet extended release 24 hr 12.5 mg PO QAM loratadine [Claritin] 10 mg Tablet 10 mg PO QAM pregabalin 100 mg capsule 100 mg PO BID Vitamin B-12 Tablet,Chewable 1 tab PO QAM Referrals Referrals: PCP,NO [Physician] -
[2025-08-06 15:33] LABS: Hematocrit (blood only) 33.9 % (37.0-47.0); Hemoglobin 10.1 g/dL (12.0-16.0); Immature Granulocytes # (auto) 0.02 K/uL (0.01-0.20); Immature Granulocytes % (auto) 0.3 %; Mean Corpuscular Hemoglobin 25.1 pg (25.0-34.0); Mean Corpuscular Volume 84.3 fL (80.0-100.0); Platelet Count 139 K/uL (130-400); RDW Standard Deviation 51.3 fL (36.4-46.3); Red Blood Count 4.02 M/uL (4.20-5.40); White Blood Count 7.31 K/ul (4.8-10.8)
[2025-08-06] MEDS: ALBUT/IPRATROP 3MG/0.5MG NEB 3 ML VIAL NEB ONE (15:42)
--- NOTE | 2025-08-06 15:44 | XRay Report ---
COMPARISON: 04/25/2025 FINDINGS: HEART: Heart size is stable. LUNGS: No focal consolidation, pleural effusion, or vascular congestion. There is some pulmonary scarring MEEDIASTINUM: Unremarkable. BONES: Bony thorax appears intact. OTHER: Unremarkable. IMPRESSION: No acute disease. Electronically signed by Katie Lyons 08-06-2025 3:44 PM
[2025-08-06 15:50] LABS: Alanine Aminotransferase 15.0 U/L (7-52); Albumin Globulin Ratio 1.5 (0.9-2); Albumin Level 4.1 gm/dl (3.4-5.0); Alkaline Phosphatase 96.0 U/L (34-104); Anion Gap 6.0 (3-11); Bilirubin,Total 0.6 mg/dl (0.2-1.0); Blood Urea Nitrogen 21.0 mg/dl (6-23); Calcium 9.2 mg/dl (8.6-10.3); Carbon Dioxide 31.0 mmol/L (21-32); Chloride 106.0 mmol/L (98-107); Creatinine Clr Calc Pharmacy 49.3 ml/min; Globulin 2.7 gm/dl (2.5-4.0); Glucose 110.0 mg/dl (70-99(Fasting)); Magnesium 2.0 mg/dl (1.7-2.4); Potassium 4.3 mmol/L (3.5-5.1); Sodium 143.0 mmol/L (136-145); Total Protein 6.8 gm/dl (6.0-8.3)
[2025-08-06 16:08] LABS: INR 1.1 (0.9-1.1); Prothrombin Time 11.5 Seconds (9.0-12.0)
[2025-08-06 16:25] LABS: Influenza A virus by PCR Negative (Neg); Influenza B virus by PCR Negative (Neg); SARS CoV2 RNA(COVID-19) Ceph NEGATIVE (Negative)
[2025-08-06] MEDS: DOXYCYCLINE HYCLATE 100 MG CAP PO STA (17:35)
[2025-08-06] MEDS: cefTRIAXone SODIUM 2,000 MG/50 ML BAG IV STA (17:35)
--- NOTE | 2025-08-06 17:57 | History & Physical Report ---
Date of Service August 06, 2025 Assessment & Plan (1) Acute exacerbation of chronic obstructive pulmonary disease: (2) Acute dyspnea: (3) Elevated brain natriuretic peptide (BNP) level: Iliana Donaldson is a 74 y/o F PMHx COPD, a fib on Eliquis, HTN, T2DM, RLS who presented to ED this afternoon with progressively worsening SOB and SPENCE for 1 week and is admitted for management of acute COPD exacerbation. #COPD exacerbation - unknown trigger of acute exacerbation ; could be due to noncompliance of home O2 and inhaler vs possible recent viral illness as patient did state she was feeling under the weather prior to worsening of symptoms. - received methylprednisolone 125mg IV en route to ED by EMS. Completed DuoNeb x2. Ceftriaxone and doxycycline started in ED - hemodynamically stable and afebrile, however notable increased work of breathing/conversational dyspnea even with ED intervention - CBC w/o leukocytosis. H&H 10.1 & 33.9 (baseline) Electrolytes wl. Cr. 1.22 (baseline). - CXR w/o acute disease. - EKG NSR with PACs - scheduled DuoNebs q4h and q2h prn for SOB/wheezing - methylprednisolone 40mg IV tid - continue home inhalers - will dc ceftriaxone and doxycycline - start azithromycin 500mg daily for 3 days for atypical coverage - VBG ordered ; if retaining/hypercapnic, can consider addition of BiPAP to help with breathing - CBC, BMP qAM #elevated BNP - BNP 362 on admission, trace BL peripheral edema - dobutamine echo completed in 01/11/25 - negative for ischemia, normal EF - can consider repeat echo if needed/no symptoms improvement - continue home furosemide 20mg po daily - repeat labs as above #atrial fibrillation - on eliquis 5mg po bid - NSR on admission EKG - currently asymptomatic, no abnormal bleeding or bruising - continue home eliquis and metoprolol #T2DM - last A1c 04/25/25 = 5.9% - hold home glipizde - BG checks #HTN - continue metoprolol 12.5mg po qAM, losartan 25mg po qAM #HLD - continue atorvastatin 40mg po qAM #mental health - continue bupropion 150mg po qAM DVT: eliquis as above GI: contine home protonix 40mg bid Dispo: med/tele History of Present Illness Chief Complaint: shortness of breath Primary Care Provider: Benoit Smith Blake Donaldson is a 74 y/o F PMHx COPD, a fib on Eliquis, HTN, T2DM, RLS who presented to ED this afternoon with progressively worsening SOB and SPENCE for 1 week. ADLs and ambulating around her home has been limited to dyspnea on exertion. States only able to take a couple of steps before stopping to rest. Associated with nonproductive cough. Denies any fevers or chills or recent sick contacts. She initially presented to [facility] urgent care ad O2 sats were in the 80s and therefore was sent to the ER for further evaluation. En route to ED, EMS gave Solu-Medrol 125mg IV and 1 DuoNeb tx. On 4 L O2 NC at baseline, but does not wear/use the oxygen when she is out of the home. Denies N/V/D, abdominal pain or appetite changes. Does note cramping in left calf with trace BL peripheral edema. ED showing CBC w/o leukocytosis. H&H 10.1 & 33.9 (baseline) Electrolytes wl. Cr. 1.22 (baseline). EKG with NSR and PACs. CXR no acute disease. In ED, re ceived another DuoNeb and started on ceftriaxone and doxycycline. She will be admitted for COPD exacerbation. Allergies Allergy/AdvReac Type Severity Reaction Status Date / Time aspirin Allergy Intermediate Hives Verified 08/02/25 12:13 (with higher than 81mg doses) & see notes ciprofloxacin Allergy Intermediate Hives Verified 08/02/25 12:13 NSAIDS (Non-Steroidal Allergy Intermediate Hives Verified 08/02/25 12:13 Anti-Inflamma tramadol AdvReac Intermediate Urinary Verified 08/02/25 12:13 Retention Home Medications Medication Instructions Recorded Confirmed Type alendronate 70 mg tablet (Fosamax) 70 mg PO WK 06/09/18 08/02/25 History aspirin 81 mg tablet,delayed 81 mg PO .9AM 06/09/18 08/06/25 History release atorvastatin 40 mg tablet 40 mg PO QAM 06/09/18 08/06/25 History bupropion HCl 150 mg 24 hr tablet, 150 mg PO QAM 06/09/18 08/06/25 History extended release (Wellbutrin XL) furosemide 20 mg tablet (Lasix) 20 mg PO QAM Fluid Retention 06/09/18 08/06/25 History montelukast 10 mg tablet 10 mg PO QAM 06/09/18 08/06/25 History (Singulair) pantoprazole 40 mg tablet,delayed 40 mg PO BIDM 06/09/18 08/06/25 History release (Protonix) potassium chloride 10 mEq 10 meq PO BID 06/09/18 08/02/25 History tablet,extended release (Klor-Con) tiotropium bromide 18 mcg capsule 18 mcg inhalation QAM 06/09/18 08/06/25 History with inhalation device (Spiriva with HandiHaler) albuterol sulfate 2.5 mg/3 mL 2.5 mg inhalation Q4H Shortness Of 08/04/19 08/02/25 History (0.083 %) solution for nebulization Breath Or Wheezing fluticasone 250 mcg-salmeterol 50 1 inh inhalation BID 03/04/22 08/06/25 History mcg/dose blistr powdr for inhalation oxycodone-acetaminophen 10 mg-325 1 tab PO BID PRN Pain, Severe 03/04/22 08/02/25 History mg tablet ipratropium 20 mcg-albuterol 100 1 puff inhalation QID PRN Wheezing 07/17/23 08/06/25 History mcg/actuation mist for inhalation (Combivent Respimat) ropinirole 4 mg tablet 4 mg PO QPM 01/12/25 08/06/25 History glipizide 2.5 mg tablet, extended 2.5 mg PO QAM 07/02/25 08/06/25 History release 24 hr ipratropium 0.5 mg-albuterol 3 mg 3 ml inhalation Q6H PRN Shortness 07/02/25 08/06/25 History (2.5 mg base)/3 mL nebulization Of Breath soln loratadine 10 mg tablet (Claritin) 10 mg PO QAM 07/02/25 08/06/25 History losartan 25 mg tablet 25 mg PO QAM 07/02/25 08/02/25 History metoprolol succinate 25 mg 12.5 mg PO QAM 07/02/25 08/02/25 History tablet,extended release 24 hr nitroglycerin 0.4 mg sublingual 0.4 mg sublingual DIRECTED PRN 07/02/25 08/06/25 History tablet (Nitrostat) Chest Pain ondansetron 8 mg disintegrating 8 mg translingual Q8H PRN 07/02/25 08/06/25 History tablet NAUSEA/VOMITING pregabalin 100 mg capsule 100 mg PO BID 07/02/25 08/02/25 History cyanocobalamin (vitamin B-12) 1 tab PO QAM 08/02/25 08/02/25 History apixaban 5 mg tablet (Eliquis) 5 mg PO .AMHS 08/06/25 08/06/25 History baclofen 5 mg tablet 5 mg PO TID 08/06/25 08/06/25 History docusate sodium 100 mg capsule 100 mg PO BID PRN Constipation 08/06/25 08/06/25 History Past Med/Surg History Problem List (Updated 08/06/25 @ 17:10 by Fabiana Edwards MD) Elevated brain natriuretic peptide (BNP) level (Acute) Acute exacerbation of chronic obstructive pulmonary disease (Acute) Acute dyspnea (Acute) Closed fracture of right patella (Acute) Patella fracture Rotator cuff arthropathy of right shoulder (Acute) RLS (restless legs syndrome) Depression HLD (hyperlipidemia) DMII (diabetes mellitus, type 2) COPD (chronic obstructive pulmonary disease) (Acute) Encounter for pre-operative examination HTN (hypertension) Degloving injury of left lower leg (Acute) Medical History (Updated 08/06/25 @ 17:10 by Fabiana Edwards MD) Depression HLD (hyperlipidemia) Short-term memory loss Ongoing, stable PAF (paroxysmal atrial fibrillation) Initial dx 2022, started on Eliquis 12/2024 after noted recurrence per S cardio records [facility] cardio consult (during [facility] admission): "Aortic valve stenosis. Moderate via December 2024 echocardiography obtained at the time of dobutamine stress testing. Recommend follow-up resting echocardiography in December 2025.. Paroxysmal atrial fibrillation. First observed in February 2023. High likelihood of reoccurrence, and progression. Patient asymptomatic. Recommend adding metoprolol succinate 12.5 mg/day. DVT3-ID1-VVKt Score 6 points. Benefits of anticoagulation appear to be greater then the risk. Continue apixaban (Eliquis) 5 mg twice per day. Longstanding untreated obstructive sleep apnea. Nocturnal hypoxemia treated with supplemental oxygen." Diastolic congestive heart failure hx CKD (chronic kidney disease) stage 3, GFR 30-59 ml/min Hearing loss "doesn't like to use hearing aids" Chronic coughing Migraines Weakness Frequent falls "has gotten better since having wheelchair" Rotator cuff arthropathy of right shoulder Hypertension Asthma COPD (chronic obstructive pulmonary disease) Follows with [facility] Pulmonology Anemia Chronic, baseline hgb 9-11 range per chart review Kidney stones Multiple, no current problems Iron deficiency Per records DVT (deep venous thrombosis) After delivery > LLE On home oxygen therapy 4L >"using almost continuously" Morbid obesity Sleep apnea Per records Patient denies hx of formal sleep study or device. + snoring Spinal stenosis no surgeries RLS (restless legs syndrome) Osteoarthritis "everywhere" Non-rheumatic aortic stenosis Follows with [facility] 10/13/24: "Moderate" aortic stenosis (LINDA 1.6cm2, AV MG 16.1mmhg) DSE 01/11/25: Moderate aortic stenosis (image + doppler assessment of aortic stenosis severity discordant per report) Nocturnal hypoxia 3.5L HS (+ with naps/sleep) Dyslipidemia Diabetes mellitus type 2, diet-controlled NIDDM Chronic low back pain Acid reflux Surgical History (Updated 08/02/25 @ 12:29 by Tasha Cooper) History of esophagogastroduodenoscopy (EGD) (2020) History of colonoscopy (2020) History of lithotripsy History of tooth extraction "unable to wear dentures" History of cataract surgery R/L Hx of tonsillectomy Family History Mother Diabetes Breast cancer Brother Colon cancer Daughter Family history of reaction to anesthesia Social History Smoking Status: Former smoker Tobacco Type: Cigarettes Second Hand Exposure: No; Do You Dip or Chew Tobacco: No; Hx Alcohol Use: Yes Alcohol type: hard liquor Hx Substance Use: No Preferred Language: Italian Communication Ability: Effective Computer Education Teacher Required: No Beliefs That Will Affect Care: None marital status: Current Living Situation: Family Current Living Situation Comment: son lives with me How many Children do You have: 2 Feels Safe at Home: Yes Assistive Devices: Denture - Upper, Denture - Lower, Glasses, Hearing Aid - Bilateral, Nebulizer, Oxygen - Continuous, Walker and Wheelchair Review of Systems Review of Systems: as per hpi Physical Exam Physical Exam: General: uncomfortable appearing, however non-toxic. Sitting upright in bed. No acute distress. HEENT: NC/AT, EOMI, lips and mucous membranes are dry Cardio: NRRR, no murmur appreciated. Trace BL peripheral edema Lungs: CTA in BL upper lung zones. End-expiratory wheezes with diminished airflow in BL lung bases. No rhonchi or crackles. Increased work of breathing and conversational dyspnea. NC 4L on and running. Abdomen: soft, nontender w/o rebound or guarding, bowel sounds normoactive Skin: warm, dry, no apparent rashes or bruises MSK: no obvious deformities ; left calf w/o erythema, swelling or tenderness Neuro: A&O x4 ; no obvious focal neurologic deficits Results & Data Results & Data Vital Signs (Past 12 Hours) Vital Signs Temp Pulse Pulse Resp BP BP Pulse Ox 08/06/25 16:30 90 20 166/90 H 97 08/06/25 16:01 83 08/06/25 15:42 76 20 98 08/06/25 15:30 85 16 183/116 H 98 08/06/25 15:11 36.6 C 85 18 192/137 H 97 O2 Del Method O2 Flow Rate 08/06/25 16:30 Nasal Cannula 4 08/06/25 16:01 08/06/25 15:42 Nasal Cannula 4 08/06/25 15:30 Nasal Cannula 4 08/06/25 15:11 Nasal Cannula 4 Code Status & VTE Plan VTE Prophylaxis Plan VTE Prophylaxis will be ordered: Yes Supervising Physician Co-Signing Physician Notes I personally examined the patient and verified all polanco points of history and exam, discussed case, and agree with decision making with Dr Ector bowman for several days. went to urgent care - sent to ER. SPENCE/sick vitals noted fatigued heent nc at [facility] cardio distant lungs diminished faint wheeze with cough no accessory muscles. skin without rashes no pallor or icterus. neuro no focal deficits. labs and diagnostics noted COPD exac - check gas to r/o hypercapnea (and follow closely and/or initiate bipap if up/if fails to improve w nebs/steroids) - nebs/steroids/zithromax. unclear what her baseline O2 requirements are - but if she's supposed to be on 4L at rest and then doesn't use O2 when she goes out, that certainly can contribute to her illness as well DVT proph - lovenox otherwise as above
--- NOTE | 2025-08-06 18:02 | Billing Data ---
Date of Service August 06, 2025 Coding Level of Care Code 42750 INT INP/OBS CARE
[2025-08-06 18:26] LABS: Base Excess VBG 3.6 mEq/L; HCO3 VBG 30 mmol/L; Oxygen Saturation VBG 64.1 %; PCO2 VBG 53 mmHg (38-50); PO2 VBG 39 mmHg; pH VBG 7.36 (7.36-7.41)
[2025-08-06] MEDS ORDERED: ALBUT/IPRATROP 3MG/0.5MG NEB 3 ML VIAL NEB PRN (18:55)
[2025-08-06] MEDS: ALBUT/IPRATROP 3MG/0.5MG NEB 3 ML VIAL NEB SCH (20:16)
[2025-08-06 20:35] LABS: Appearance Urine Clear (Clear); Bacteria Urine Automated 2+ (None Seen); Cast Urine Automated 0-2 /lpf (0-2); Glucose Urine UA Negative (Negative); WBC Urine Automated 21-50 /hpf (0-5)
[2025-08-06] MEDS: POTASSIUM CHLORIDE 10 MEQ TABCR PO SCH (21:55)
[2025-08-06] MEDS: APIXABAN 5 MG TABLET PO SCH (21:56)
[2025-08-06] MEDS: BACLOFEN 10 MG TAB PO SCH (21:56)
[2025-08-06] MEDS: PREGABALIN 100 MG CAP PO SCH (21:56)
[2025-08-07 07:12] LABS: Hematocrit (blood only) 31.0 % (37.0-47.0); Hemoglobin 9.5 g/dL (12.0-16.0); Mean Corpuscular Hemoglobin 25.4 pg (25.0-34.0); Mean Corpuscular Volume 82.9 fL (80.0-100.0); Platelet Count 133 K/uL (130-400); RDW Standard Deviation 50.2 fL (36.4-46.3); Red Blood Count 3.74 M/uL (4.20-5.40); White Blood Count 6.23 K/ul (4.8-10.8)
[2025-08-07 07:19] LABS: Anion Gap 7.0 (3-11); Blood Urea Nitrogen 26.0 mg/dl (6-23); Calcium 8.7 mg/dl (8.6-10.3); Carbon Dioxide 29.0 mmol/L (21-32); Chloride 106.0 mmol/L (98-107); Creatinine Clr Calc Pharmacy 54.1 ml/min; Glucose 211.0 mg/dl (70-99(Fasting)); Immature Granulocytes # (auto) 0.02 K/uL (0.01-0.20); Immature Granulocytes % (auto) 0.3 %; Ovalocytes 1+; Polychromasia 1+; Potassium 4.1 mmol/L (3.5-5.1); Sodium 142.0 mmol/L (136-145); Tear Drop Cells 1+
[2025-08-07] MEDS: AZITHROMYCIN 250 MG TAB PO SCH (07:59)
[2025-08-07] MEDS: LORATADINE 10 MG TAB PO SCH (07:59)
[2025-08-07] MEDS: METOPROLOL SUCC 25MG EXT REL TAB PO SCH (08:00)
[2025-08-07] MEDS: LOSARTAN POTASSIUM 25 MG TAB PO SCH (08:00)
[2025-08-07] MEDS: FUROSEMIDE 20 MG TAB PO PRN (08:00)
[2025-08-07] MEDS: ATORVASTATIN 40 MG TAB PO SCH (08:00)
[2025-08-07] MEDS: ASPIRIN 81 MG ECTAB PO SCH (08:00)
[2025-08-07] MEDS: CYANOCOBALAMIN (B-12) 500 MCG TABLET PO SCH (08:00)
[2025-08-07] MEDS: FLUTICASONE/VILANTEROL 200/25MCG 14 PUFFS/INHALER INH SCH (08:01)
--- NOTE | 2025-08-07 12:15 | Hospitalist Progress Note ---
Date of Service August 07, 2025 Assessment & Plan (1) Acute exacerbation of chronic obstructive pulmonary disease: (2) HTN (hypertension): (3) DMII (diabetes mellitus, type 2): (4) Depression: (5) Elevated brain natriuretic peptide (BNP) level: (6) HLD (hyperlipidemia): Plan Anika is a 74 y/o F PMHx COPD, a fib on Eliquis, HTN, T2DM, RLS who presented to ED this afternoon with progressively worsening SOB and SEPNCE for 1 week and is admitted for management of acute COPD exacerbation. #COPD exacerbation cigarette smoke as possible causative factor for exacerbation able to review external [facility] pulm notes from [facility] (12/15/24)-->PFTs 09/2024 PRISM, moderate obstruction with mild gas transfer defect, OSAS and noncompliant with CPAP, hypoxic resp status on 3-4LPM night PLUS daytime CXR w/o acute disease EKG NSR with PACs scheduled DuoNebs q4h and q2h prn for SOB/wheezing methylprednisolone 40mg IV TID continue home inhalers dc ceftriaxone and doxycycline from ED - started azithromycin 500mg daily for 3 days for atypical coverage VBGs with overt acidosis-->Ph 7.36/pCO2 53/pO2 39/HCO3 30 #elevated BNP BNP 362 on admission, trend chest x-ray without acute HF findings can consider repeat echo if needed/no symptoms improvement-->no acute clinical signs of HF continue home furosemide 20mg po daily prn #atrial fibrillation anticoagulated with eliquis 5mg po bid rate control with metoprolol NSR on admission EKG. NSR 90s with PACs/PVCs on beauty counselor #T2DM A1c 04/25/25 = 5.9% hold home glipizide BSG ACHS with SSI coverage, pharm consult for basal as patient on IV steroid #HTN metoprolol 12.5mg po qAM losartan 25mg po qAM #HLD atorvastatin 40mg po qAM #depression bupropion 150mg po qAM DVT: eliquis as above GI: contine home protonix 40mg bid Dispo: PCU/tele admission, possible d/c tomorrow with steroid taper Admission and Anticipated Discharge Date Admission Date: August 06, 2025 Supervising Physician Co-Signing Physician Notes The patient was not seen by me. The chart was reviewed. Case discussed with HAKAN Dang. Agree with assessment and plan Subjective Anika is sitting up in bed this am. States her SOB has much improved-->dose endorse she was recently at [employer] around tenriism members smoking and believes cigarette smoke could have possibly could have been an exacerbating irritant to COPD prior to arrival, Currently on 2-3LPM via NC without resting dyspnea or conversational dyspnea compared to her initial presentation in the ED. Reports being on continuous oxygen therapy at home only at night time due to nocturnal hypoxia. Does occasionally use during the day. She may follow with pulmonology but isn't entirely sure. Review of Systems Review of Systems: All systems reviewed & are unremarkable except as noted in Subjective Physical Exam Physical Exam: GENERAL APPEARANCE: A&O. Sitting comfortably in bed. NAD. SKIN: Normal color without rashes or lesions. Normal turgor. HEENT: Head AT/NC. Buccal mucosa is moist and pink. NECK: No jugular venous distention. No thyroid enlargement. There is no lymphadenopathy. HEART: RRR without m/g/r. LUNGS: Normal inspiratory effort. CTA without w/r/r. ABDOMEN: No guarding or rigidity. Normoactive BS in all four quadrants. Abdomen soft and NT. MSK: No bony gross/deformities throughout. ROM intact. EXTREMITIES: No edema, No peripheral cyanosis. Neuro: CN 2-12 grossly intact. No focal neuro deficits. PSYCHIATRIC: Normal affect. Eye contact is good. Speech is normal rate and content. Responses are appropriate. Results & Data Results & Data Vital Signs (Past 12 Hours) Vital Signs Temp Pulse Pulse Resp BP Pulse Ox O2 Del Method 08/07/25 11:25 36.4 C L 92 H 20 144/80 H 96 Nasal Cannula 08/07/25 11:09 94 H 15 95 Nasal Cannula 08/07/25 07:29 94 H 17 96 Nasal Cannula 08/07/25 07:15 Nasal Cannula 08/07/25 07:15 36.5 C 94 H 22 159/83 H 98 Nasal Cannula 08/07/25 03:14 36.5 C 97 H 19 140/79 97 Nasal Cannula 08/07/25 02:42 90 18 93 Nasal Cannula O2 Flow Rate 08/07/25 11:25 2 08/07/25 11:09 2 08/07/25 07:29 4 12/22/25 07:15 4 08/07/25 07:15 4 08/07/25 03:14 4 08/07/25 02:42 4 Laboratory Results Labs reviewed: CBC, BMP PG Care Time/CCT Total # of Minutes Spent Total Time Spent with Patient: Total time spent is greater than 50% in coordination of care (as documented) at patient's floor/unit and/or counseling patient: Coding Level of Care Code 71974 SUB INP/OBS CARE 2/35MIN Diagnoses Acute exacerbation of chronic obstructive pulmonary disease J44.1 HTN (hypertension) I10 DMII (diabetes mellitus, type 2) E11.9 Depression F32.A Elevated brain natriuretic peptide (BNP) level R79.89 HLD (hyperlipidemia) E78.5
[2025-08-07] MEDS ORDERED: DEXTROSE 50% 50 ML SYRINGE IV PRN (12:16)
[2025-08-07] MEDS ORDERED: PHARMACY GLYCEMIC MGMT CONSULT PRN (12:16)
[2025-08-07] MEDS ORDERED: GLUCAGON FOR INJ 1 MG VIAL SQ PRN (12:16)
[2025-08-07] MEDS ORDERED: GLUCOSE 40% GEL 15 GM TUBE PO PRN (12:16)
[2025-08-07] MEDS ORDERED: CARBOHYDRATES FOR HYPOGLYCEMIA PO PRN (12:16)
[2025-08-07] MEDS ORDERED: GLUCOSE 10 TAB/TUBE PO PRN (12:16)
[2025-08-07] MEDS: INSULIN ASPART PER UNIT CHARGE SC SCH (12:57)
--- NOTE | 2025-08-07 13:56 | Pharmacy Report ---
Pharmacy Glycemic Short Note 2 - Date of Service August 07, 2025 - Glycemic Short BSG Results (Last 24 hours): 08/06/25 08/07/25 08/07/25 15:15 06:20 12:56 Glucose 110 H 211 H POC Glucose 254 H OUTPATIENT ANTIDIABETIC REGIMEN: * glipizide 2.5mg PO qAM HbA1C: ASSESSMENT: * Pt is a 74 year old female admitted with a COPD exacerbation. History of DM2 on glipizide at home. Pharmacy consulted to assist with inpatient glycemic management. * Receiving IV steroids: methylprednisolone 40mg IV TID. Tolerating diet. * BSGs 211-254mg/dL today. * Begin Novolog moderate stress scale ACHS. Will hold basal for now pending response to Novolog coverage. PLAN FOR INPATIENT GLYCEMIC CONTROL: * Hold outpatient oral diabetes medications * Basal insulin * hold * Bolus insulin * NovoLog per scale ACHS or Q6hrs while NPO * Goal Range: Low 110 mg/dL - High 140 mg/dL * Correction Factor: 20mg/dL/unit * Nutritional / Prandial insulin per carb ratio of 1 unit per 7 grams CHO consumed
--- NOTE | 2025-08-07 14:22 | Electrocardiogram Report ---
Test Reason : Blood Pressure : */* mmHG Vent. Rate : 90 BPM Atrial Rate : 90 BPM P-R Int : 180 ms QRS Dur : 84 ms QT Int : 362 ms P-R-T Axes : 39 51 68 degrees QTcB Int : 442 ms Sinus rhythm with Premature atrial complexes 1st degree AV block Otherwise normal ECG When compared with ECG of 25-Apr-2025 14:56, Premature atrial complexes are now Present NM interval has decreased Confirmed by Sha Ortiz ([id number]) on 08/07/2025 2:22:10 PM Referred By: Confirmed By: Sha Ortiz
[2025-08-08 06:15] LABS: Hematocrit (blood only) 31.9 % (37.0-47.0); Hemoglobin 9.5 g/dL (12.0-16.0); Mean Corpuscular Hemoglobin 24.9 pg (25.0-34.0); Mean Corpuscular Volume 83.7 fL (80.0-100.0); Platelet Count 147 K/uL (130-400); RDW Standard Deviation 52.2 fL (36.4-46.3); Red Blood Count 3.81 M/uL (4.20-5.40); White Blood Count 12.88 K/ul (4.8-10.8)
[2025-08-08 06:36] LABS: Anion Gap 8.0 (3-11); Blood Urea Nitrogen 45.0 mg/dl (6-23); Calcium 8.6 mg/dl (8.6-10.3); Carbon Dioxide 26.0 mmol/L (21-32); Chloride 105.0 mmol/L (98-107); Creatinine Clr Calc Pharmacy 37.8 ml/min; Glucose 290.0 mg/dl (70-99(Fasting)); Potassium 4.4 mmol/L (3.5-5.1); Sodium 139.0 mmol/L (136-145)
[2025-08-08 06:44] LABS: Immature Granulocytes # (auto) 0.11 K/uL (0.01-0.20); Immature Granulocytes % (auto) 0.9 %; Ovalocytes 1+; Polychromasia 1+; Tear Drop Cells 1+
[2025-08-08 07:51] LABS: Hemoglobin A1C 6.0 % (4.5-5.6)
[2025-08-08] MEDS: LANTUS PER UNIT CHARGE SC ONE (08:35)
[2025-08-08] MEDS ORDERED: LACTATED RINGER'S 1,000 ML IV SCH (12:00)
--- NOTE | 2025-08-08 12:45 | Pharmacy Report ---
Pharmacy Glycemic Short Note 2 - Date of Service August 08, 2025 - Glycemic Short BSG Results (Last 24 hours): 08/07/25 08/07/25 08/07/25 12:56 16:24 19:59 Glucose POC Glucose 254 H 179 H 143 H 08/08/25 08/08/25 08/08/25 05:47 07:28 11:25 Glucose 290 H POC Glucose 277 H 122 H OUTPATIENT ANTIDIABETIC REGIMEN: * glipizide 2.5mg PO qAM HbA1C: 6% ASSESSMENT: 08/08: * BSGs 356-449-772-122mg/dL the last 24h. Received 18 units of bolus insulin yesterday. * Continues on methylprednisolone 40mg IV TID. Tolerating diet. * Given elevated fasting BSG, will add basal with Lantus 10 units X1. Reassess need to continue tomorrow. No change to Novolog. 08/07: * Pt is a 74 year old female admitted with a COPD exacerbation. History of DM2 on glipizide at home. Pharmacy consulted to assist with inpatient glycemic management. * Receiving IV steroids: methylprednisolone 40mg IV TID. Tolerating diet. * BSGs 211-254mg/dL today. * Begin Novolog moderate stress scale ACHS. Will hold basal for now pending response to Novolog coverage. PLAN FOR INPATIENT GLYCEMIC CONTROL: * Hold outpatient oral diabetes medications * Basal insulin * Lantus 10 units SQ X 1 - reassess in AM * Bolus insulin * NovoLog per scale ACHS or Q6hrs while NPO * Goal Range: Low 110 mg/dL - High 140 mg/dL * Correction Factor: 20mg/dL/unit * Nutritional / Prandial insulin per carb ratio of 1 unit per 7 grams CHO consumed
[2025-08-08] MEDS: NITROFURANTOIN MONOHYDRATE 100 MG CAP PO SCH (12:49)
--- NOTE | 2025-08-08 17:27 | Hospitalist Progress Note ---
Date of Service August 08, 2025 Assessment & Plan (1) Acute exacerbation of chronic obstructive pulmonary disease: (2) HTN (hypertension): (3) DMII (diabetes mellitus, type 2): (4) Depression: (5) Elevated brain natriuretic peptide (BNP) level: (6) HLD (hyperlipidemia): Plan Anika is a 74 y/o F PMHx COPD, a fib on Eliquis, HTN, T2DM, RLS who presented to ED this afternoon with progressively worsening SOB and SPENCE for 1 week and is admitted for management of acute COPD exacerbation. #COPD exacerbation cigarette smoke as possible causative factor for exacerbation able to review external [facility] pulm notes from (12/15/24)-->PFTs 09/2024 PRISM, moderate obstruction with mild gas transfer defect, OSAS and noncompliant with CPAP, hypoxic resp status on 3-4LPM night PLUS daytime CXR w/o acute disease EKG NSR with PACs scheduled DuoNebs q4h and q2h prn for SOB/wheezing methylprednisolone 40mg IV TID continue home inhalers dc ceftriaxone and doxycycline from ED - started azithromycin 500mg daily for 3 days for atypical coverage VBGs with overt acidosis-->Ph 7.36/pCO2 53/pO2 39/HCO3 30 on arrival TTE today to evaluate heart function BNP decreased to 174 ##elevated Cr has taken two prn doses of Lasix hold lasix pending TTE trend in am ##UTI UC with enterococcus faecalis empiric Macrobid pending final UC results #elevated BNP BNP 362 on admission, trend chest x-ray without acute HF findings can consider repeat echo if needed/no symptoms improvement-->no acute clinical signs of HF continue home furosemide 20mg po daily prn #atrial fibrillation anticoagulated with eliquis 5mg po bid rate control with metoprolol NSR on admission EKG. NSR 80s with PACs #T2DM A1c 04/25/25 = 5.9% hold home glipizide BSG ACHS with SSI coverage, pharm consult for basal as patient on IV steroid #HTN metoprolol 12.5mg po qAM losartan 25mg po qAM #HLD atorvastatin 40mg po qAM #depression bupropion 150mg po qAM DVT: eliquis as above GI: continue home protonix 40mg bid Dispo: PCU/tele admission, possible d/c tomorrow with steroid taper Admission and Anticipated Discharge Date Admission Date: August 06, 2025 Supervising Physician Co-Signing Physician Notes The patient was not seen by me. The chart was reviewed. Case discussed with HAKAN Dang. Agree with assessment and plan. Subjective Patient sitting up in bed this am. States she has no major complaints. Still slightly SOB when up walking. Relayed to patient she per her last [facility] note on 12/15/24 she was to be wearing oxygen during the day and at nighttime. She states she mostly only wears at night and that she was not aware she was to wear during the daytime hours. 2 step today with RT with RA saturation at 85%/2LNC saturation at 87%/3LNC saturation at 92. She is eating and drinking well. Review of Systems Review of Systems: All systems reviewed & are unremarkable except as noted in Subjective Physical Exam Physical Exam: GENERAL APPEARANCE: A&O. Sitting up at the bedside. NAD. SKIN: Normal color without rashes or lesions. Normal turgor. HEENT: Head AT/NC. Buccal mucosa is moist and pink. NECK: No jugular venous distention. No thyroid enlargement. There is no lymphadenopathy. HEART: RRR without m/g/r. LUNGS: Normal inspiratory effort. CTA without w/r/r. ABDOMEN: No guarding or rigidity. Normoactive BS in all four quadrants. Abdomen soft and NT. MSK: No bony gross/deformities throughout. ROM intact. EXTREMITIES: No edema, No peripheral cyanosis. Neuro: CN 2-12 grossly intact. No focal neuro deficits. PSYCHIATRIC: Normal affect. Eye contact is good. Speech is normal rate and content. Responses are appropriate. Results & Data Results & Data Vital Signs (Past 12 Hours) Vital Signs Temp Pulse Pulse Pulse Pulse Pulse Pulse 08/08/25 15:22 81 08/08/25 15:18 36.8 C 91 H 08/08/25 14:45 91 H 08/08/25 11:22 36.7 C 89 08/08/25 11:03 85 08/08/25 10:01 104 H 108 H 96 H 81 08/08/25 08:00 93 H 08/08/25 07:15 08/08/25 07:05 36.5 C 87 08/08/25 05:33 94 H Resp Resp Resp Resp Resp BP Pulse Ox 08/08/25 15:22 22 99 08/08/25 15:18 22 149/83 H 96 08/08/25 14:45 08/08/25 11:22 22 149/63 H 95 08/08/25 11:03 18 98 08/08/25 10:01 22 24 22 16 08/08/25 08:00 08/08/25 07:15 08/08/25 07:05 20 147/90 H 97 08/08/25 05:33 26 H 99 Pulse Ox Pulse Ox Pulse Ox Pulse Ox O2 Del Method O2 Flow Rate O2 Flow Rate 08/08/25 15:22 Nasal Cannula 3 08/08/25 15:18 Nasal Cannula 3 08/08/25 14:45 08/08/25 11:22 Nasal Cannula 3 08/08/25 11:03 Nasal Cannula 3 08/08/25 10:01 87 L 92 85 L 94 2 08/08/25 08:00 08/08/25 07:15 Nasal Cannula 3.5 08/08/25 07:05 Nasal Cannula 3.5 08/08/25 05:33 Nasal Cannula 3.5 O2 Flow Rate O2 Flow Rate 08/08/25 15:22 08/08/25 15:18 08/08/25 14:45 08/08/25 11:22 08/08/25 11:03 08/08/25 10:01 3 0 08/08/25 08:00 08/08/25 07:15 08/08/25 07:05 08/08/25 05:33 Laboratory Results Labs reviewed: CBC, BMP PG Care Time/CCT Total # of Minutes Spent Total Time Spent with Patient: Total time spent is greater than 50% in coordination of care (as documented) at patient's floor/unit and/or counseling patient: Coding Level of Care Code 21986 SUB INP/OBS CARE 2/35MIN Diagnoses Acute exacerbation of chronic obstructive pulmonary disease J44.1 HTN (hypertension) I10 DMII (diabetes mellitus, type 2) E11.9 Depression F32.A Elevated brain natriuretic peptide (BNP) level R79.89 HLD (hyperlipidemia) E78.5
[2025-08-08 22:52] VITALS: RESP 18
[2025-08-09 06:01] LABS: Hematocrit (blood only) 32.4 % (37.0-47.0); Hemoglobin 9.6 g/dL (12.0-16.0); Immature Granulocytes # (auto) 0.07 K/uL (0.01-0.20); Immature Granulocytes % (auto) 0.7 %; Mean Corpuscular Hemoglobin 25.1 pg (25.0-34.0); Mean Corpuscular Volume 84.8 fL (80.0-100.0); Platelet Count 138 K/uL (130-400); RDW Standard Deviation 53.0 fL (36.4-46.3); Red Blood Count 3.82 M/uL (4.20-5.40); White Blood Count 10.65 K/ul (4.8-10.8)
[2025-08-09 06:30] LABS: Anion Gap 9.0 (3-11); Blood Urea Nitrogen 54.0 mg/dl (6-23); Calcium 8.7 mg/dl (8.6-10.3); Carbon Dioxide 26.0 mmol/L (21-32); Chloride 107.0 mmol/L (98-107); Creatinine Clr Calc Pharmacy 35.1 ml/min; Glucose 220.0 mg/dl (70-99(Fasting)); Potassium 4.7 mmol/L (3.5-5.1); Sodium 142.0 mmol/L (136-145)
[2025-08-09] MEDS: ALENDRONATE SODIUM 70 MG TAB PO SCH (08:15)
[2025-08-09] MEDS: LANTUS PER UNIT CHARGE SC SCH (08:17)
--- NOTE | 2025-08-09 09:01 | XRay Report ---
TWO VIEW CHEST CLINICAL HISTORY: Dyspnea. FINDINGS: PA and lateral chest radiographs are compared to study dated 08/06/2025 and correlated with chest CT dated 08/06/2025. The heart is enlarged noting atherosclerotic calcification of the thoraci c aorta. There is prominence of the pulmonary vasculature. Atelectasis is seen at the lung bases. No airspace consolidation or pleural effusion is identified. There is no pneumothorax. The skeletal stru ctures are osteopenic. The bony thorax appears intact. Degenerative change is noted in the shoulders and spine. IMPRESSION: 1. Cardiomegaly with prominence of the pulmonary vasculature. Correlate clinically for evidence of mi ld fluid overload/congestive change. 2. No airspace consolidation or pleural effusion is identified. ACT 112: Negative or not required by law. Electronically signed by: John Foster M.D. 08/09/2025 8:59 AM
--- NOTE | 2025-08-09 11:04 | Pharmacy Report ---
Pharmacy Glycemic Short Note 2 - Date of Service August 09, 2025 - Glycemic Short BSG Results (Last 24 hours): 08/08/25 08/08/25 08/08/25 11:25 16:25 20:14 Glucose POC Glucose 122 H 156 H 188 H 08/09/25 08/09/25 05:25 07:18 Glucose 220 H POC Glucose 165 H OUTPATIENT ANTIDIABETIC REGIMEN: * glipizide 2.5mg PO qAM HbA1C: 6% ASSESSMENT: 08/09: * Methylprednisolone tapering from 40 mg IV TID to BID * AM fasting BSG above goal but trending down significantly from yesterday. Will split Lantus BID since patient is not on basal insulin as an outpatient and admin based on BSG * Post-prandial elevations noted yesterday. But will not make changes to Novolog since anticipate steroid taper may increase insulin sensitivity 08/08: * BSGs [id number]/dL the last 24h. Received 18 units of bolus insulin yesterday. * Continues on methylprednisolone 40mg IV TID. Tolerating diet. * Given elevated fasting BSG, will add basal with Lantus 10 units X1. Reassess need to continue tomorrow. No change to Novolog. 08/07: * Pt is a 74 year old female admitted with a COPD exacerbation. History of DM2 on glipizide at home. Pharmacy consulted to assist with inpatient glycemic management. * Receiving IV steroids: methylprednisolone 40mg IV TID. Tolerating diet. * BSGs 211-254mg/dL today. * Begin Novolog moderate stress scale ACHS. Will hold basal for now pending response to Novolog coverage. PLAN FOR INPATIENT GLYCEMIC CONTROL: * Hold outpatient oral diabetes medications * Basal insulin * Lantus 5 units BID (hold if BSG less than 140 mg/dL) * Bolus insulin * NovoLog per scale ACHS or Q6hrs while NPO * Goal Range: Low 110 mg/dL - High 140 mg/dL * Correction Factor: 20 mg/dL/unit * Nutritional / Prandial insulin per carb ratio of 1 unit per 7 grams CHO consumed
[2025-08-09 11:20] VITALS: BP 163/87; TEMP 98.1; O2SAT 99
--- NOTE | 2025-08-09 11:30 | XCELERA ---
[id number]
--- NOTE | 2025-08-09 11:53 | Discharge Summary ---
Discharge Summary Date of Service August 09, 2025 Principal Dx & Hospital Course #1 = Principal Diagnosis (1) Acute exacerbation of chronic obstructive pulmonary disease: (2) Acute kidney injury: (3) HTN (hypertension): (4) DMII (diabetes mellitus, type 2): (5) Depression: (6) Elevated brain natriuretic peptide (BNP) level: (7) HLD (hyperlipidemia): Iliana Donaldson is a 74 y/o F PMHx COPD, a fib on Eliquis, HTN, T2DM, RLS who presented to ED this afternoon with progressively worsening SOB and SPENCE for 1 week and is admitted for management of acute COPD exacerbation. #Acute COPD exacerbation Cigarette smoke as possible causative factor for exacerbation Patient is former tobacco cigarette smoker, but quit >10y ago Previous provider reviewed external [facility] pulm notes from (12/15/24)-->PFTs 09/2024 PRISM, moderate obstruction with mild gas transfer defect, OSAS and noncompliant with CPAP, hypoxic resp status on 3-4LPM night PLUS daytime EKG NSR with PACs Schedule DuoNebs q4h and q2h prn for SOB/wheezing Inpatient steroid regimen: Methylprednisolone 40mg IV TID Patient completed course of azithromycin 500 mg daily x 3 for atypical coverage in the hospital Continue home inhaler Will plan to discharge patient on prednisone taper #NICHELLE Elevated creatinine at 1.71 at time of discharge (baseline around 1.1) Suspect prerenal in the setting of Lasix use while in the hospital Note: Patient reports she does not normally take Lasix every daily as an outpatient (PRN) Hold Lasix, losartan, and potassium chloride supplement Recommend rechecking BMP in the next 2 to 3 days to ensure stability of renal function #UTI Clinically, patient denies urinary symptoms, but does report increased urinary frequency (could be due to Lasix use) Finalized UCx with enterococcus faecalis (with resistance to tetracyclines) H/o allergy to fluoroquinolones (hives) Will plan to discharge patient on Macrobid x 5 additional days #Elevated BNP BNP trend: 362 -> 174 -> 232 Patient appears euvolemic/clinically dry on exam Echocardiogram on 08/09/25 revealed LVEF at 60 to 65% with grade 1 diastolic dysfunction; no regional wall motion abnormalities appreciated Hold Lasix upon discharge #Atrial fibrillation Anticoagulated with eliquis 5mg po bid rate control with metoprolol NSR on admission EKG. NSR 80s with PACs #T2DM A1c 04/25/25 = 5.9% Resume home regimen upon discharge #HTN Continue Metoprolol 12.5mg po qAM Hold losartan in the setting of NICHELLE #HLD Continue atorvastatin 40mg po qAM #Depression Continue bupropion 150mg po qAM Day of discharge 08/09: Patient is hypertensive at 163/87; SpO2 99% on 3L NC; vitals otherwise stable. Mrs. Salvador reports she feels "a lot better" today compared to yesterday. She denies any shortness of breath, trouble breathing with exertion, or dizziness/lightheadedness when getting up out of bed. Patient is fairly adamant about being discharged home today. She lives with her son, who is her primary spout worker. She also reports she is on supplemental oxygen at baseline (3.5 to 4.0 L continuous). Patient reports that she also has an electric wheelchair at home to help with getting around. Patient reports resolution of all symptoms, and reports that she refuses to be in the hospital overnight on . She has a 3-month-old great granddaughter who she wants to spend [place] with tomorrow. We did discuss that patient had an acute kidney injury (creatinine level elevated at 1.71) on her labs this morning, and while it was recommended that she stay an additional night, she says she would prefer to have follow-up blood work in the next 2 to 3 days as an outpatient. She verbalized understanding that her kidney function could continue to worsen on an outpatient basis, but still expresses a strong desire to leave. She also reports that she has an upcoming appointment to have a kidney stone removed on 08/15, and is planning to have her blood work checked then. Patient reports no changes in urinary symptoms (still producing plenty of urine). She denies any lower back pain, burning with urination, or blood in her urine; she has had UTIs in the past, and often times does not even feel them. Additionally, patient reports she does not normally take her Lasix every day, but has been receiving it daily while in the hospital. She thinks this could be contributing to her increased urinary frequency. Other than that, she is fairly asymptomatic at this time, and again expresses a strong desire to return home. ROS: Patient endorses increased urinary frequency (attributes to Lasix use in the hos pital). Patient denies fever, chills, night sweats, lightheadedness/dizziness when standing, chest pain, chest palpitations, SOB at rest, SPENCE, pleuritic CP, cough, abdominal pain, lower back pain, N/V/D, burning with urination, blood in the urine or stool, lower extremity swelling, or decreased urinary frequency. Disposition: Discharge home Notes For Next Care Provider Hospitalized for acute COPD exacerbation. While symptoms improved, creatinine level elevated at 1.71 on discharge. While patient does have a urinary tract infection and history of kidney stones, suspect this is prerenal in the setting of Lasix use in the hospital, as patient appears clinically dry on discharge. Patient declined to stay an additional night to monitor renal function. Hold losartan, Lasix, and furosemide until seen for follow-up. Additionally, would strongly recommend weaning off of baclofen TID as tolerated. Recommend repeat BMP in the next 2 to 3 days to ensure stability. Admission HPI Per Admitting Provider Anika is a 74 y/o F PMHx COPD, a fib on Eliquis, HTN, T2DM, RLS who presented to ED this afternoon with progressively worsening SOB and SPENCE for 1 week. ADLs and ambulating around her home has been limited to dyspnea on exertion. States only able to take a couple of steps before stopping to rest. Associated with nonproductive cough. Denies any fevers or chills or recent sick contacts. She initially presented to [facility] urgent care ad O2 sats were in the 80s and therefore was sent to the ER for further evaluation. En route to ED, EMS gave Solu-Medrol 125mg IV and 1 DuoNeb tx. On 4 L O2 NC at baseline, but does not wear/use the oxygen when she is out of the home. Denies N/V/D, abdominal pain or appetite changes. Does note cramping in left calf with trace BL peripheral edema. ED showing CBC w/o leukocytosis. H&H 10.1 & 33.9 (baseline) Electrolytes wl. Cr. 1.22 (baseline). EKG with NSR and PACs. CXR no acute disease. In ED, received another DuoNeb and started on ceftriaxone and doxycycline. She will be admitted for COPD exacerbation. Admission Exam Per Admitting Provider General: uncomfortable appearing, however non-toxic. Sitting upright in bed. No acute distress. HEENT: NC/AT, EOMI, lips and mucous membranes are dry Cardio: NRRR, no murmur appreciated. Trace BL peripheral edema Lungs: CTA in BL upper lung zones. End-expiratory wheezes with diminished airflow in BL lung bases. No rhonchi or crackles. Increased work of breathing and conversational dyspnea. NC 4L on and running. Abdomen: soft, nontender w/o rebound or guarding, bowel sounds normoactive Skin: warm, dry, no apparent rashes or bruises MSK: no obvious deformities ; left calf w/o erythema, swelling or tenderness Neuro: A&O x4 ; no obvious focal neurologic deficits Discharge Exam General: no acute distress; non-toxic appearing; cooperative HEENT: normocephalic, atraumatic; PERRLA; vision and hearing intact Neck: supple; trachea midline Skin: warm, dry without signs of tenting; no cyanosis; no rashes, bruising, lesions, or erythema noted CV: chest wall NTP; RRR; S1/S2 normal; no murmurs/rubs/gallops; pulses intact and symmetric at radial, DP, and PT Lungs: no acute respiratory distress; symmetrical chest wall expansion; clear breath sounds across all lung moe w/o adventitious sounds; no wheezing ABD: Soft, NTP; BS present; no rebound/guarding; no distention MSK: no tics or fasciculations; no edema noted in the LEs b/l, nonerythematous Neuro: A&Ox3; normal mood and affect; fluent speech; sensation intact and symmetric in the LEs b/l Discharge Plan Discharge Items Patient Disposition: Home - Self-Care Reason For Visit: SOB Discharge Diagnosis: Acute COPD exacerbation, NICHELLE Condition on Discharge: Fair Activity: Resume your previous activity Non-emergency contact: Primary Care Provider and Colors Custodian Call non-emergency contact if: you have any medication questions, your symptoms worsen and you have a fever Follow-up/Referrals: Benoit Lozano M.D. [Primary Care Provider] - Diet: Carb Consistent or DM2 Addtl Attending Provider Instructions: You were hospitalized at [facility] from 08/06 to 08/09 for progressive/worsening shortness of breath x 1 week prior to arrival. Your labs and imaging were consistent with an acute episode of COPD exacerbation. You were treated with IV steroids and nebulizers while in the hospital, and reported gradual improvement in your symptoms. Additionally, you were treated with antibiotics for a urinary tract infection while in the hospital. We recommend that you continue to take the full course of antibiotics upon discharge. Given your vitals are currently stable, your white blood cell count is not elevated to indicate signs of severe infection, and you report significant improvement in your breathing, we feel that you are safe to return home at this time. New prescriptions on discharge: Nitrofurantoin ("Macrobid") 100 mg capsules twice daily x 5 days Prednisone 5 mg tablet taper x 8 additional days Please follow instructions on the label; start by taking 8 tablets (40 mg) on 08/10, and decrease by 1 tablet per day for each day thereafter (example: take 7 tablets or 35 mg on 08/11) We recommend that you follow-up with your PCP in the next 7 to 10 days for a transitional care appointment. Prior to his appointment, we recommend that you have blood work drawn to assess your kidney function. Please do NOT take the following medications until seen by your PCP for follow- up: Losartan 25 mg tablets Lasix 20 mg tablets Potassium chloride 10 mEq tablets We also recommend that you hold baclofen or only take it as needed over the next several days if possible. Please note that you have an acute kidney injury on discharge. We measure kidney function based on a blood test called "creatinine", which we want to be low or around your baseline. While your baseline creatinine is 1.1, it was elevated at 1.7 just prior to discharge. It is suspected that this elevation was due to Lasix use while in the hospital, and is recommended that you discontinue Lasix as an outpatient and have repeat blood work drawn prior to follow-up. If you develop any new or worsening symptoms, such as fever, chills, night sweats, chest pain, pain with deep breaths, trouble breathing with exertion, blood in your cough, burning with urination, new onset of lower back pain, or decreased urinary output, please return to the emergency department immediately. It was a pleasure taking care of you. Please reach out with any questions or concerns. Sincerely, The Hospital medicine team at [facility] Pending Studies at Discharge: No Stand-Alone Forms: My [facility] Medications and DC Order Prescriptions: New nitrofurantoin monohyd/m-cryst [Macrobid] 100 mg Capsule 100 mg PO BID 5 Days Qty: 10 0RF Rx Instructions: Take 1 capsule by mouth twice daily x 5 additional days prednisone 5 mg tablets,dose pack See Rx Instructions .ROUTE .COMPLEX Qty: 36 0RF Rx Instructions: prednisone 5 mg: take 8 tablets (40 mg) on Day 1; 7 tablets (35 mg) on Day 2; then decrease by 1 tablet every day until finished Continued albuterol sulfate 2.5 mg /3 mL (0.083 %) Solution For Nebulization 2.5 mg INHALATION Q4H PRN (Reason: Shortness Of Breath Or Wheezing) atorvastatin 40 mg tablet 40 mg PO QAM alendronate [Fosamax] 70 mg tablet 70 mg PO WK Patient Comments: thu Rx Instructions: WEDNESDAYS aspirin 81 mg Tablet,Delayed Release (Dr/Ec) 81 mg PO .9AM pantoprazole [Protonix] 40 mg tablet,delayed release (DR/EC) 40 mg PO BIDM montelukast [Singulair] 10 mg Tablet 10 mg PO QAM bupropion HCl [Wellbutrin XL] 150 mg tablet extended release 24 hr 150 mg PO QAM tiotropium bromide [Spiriva with HandiHaler] 18 mcg capsule, w/inhalation device 18 mcg Inhalation QAM Rx Instructions: TAKE 2 INHALATIONS DO NOT SWALLOW TAKE TWO INHALATIONS. DO NOT SWALLOW. fluticasone propion-salmeterol 250-50 mcg/dose blister with device 1 inh INHALATION BID oxycodone-acetaminophen 10-325 mg tablet 1 tab PO BID PRN (Reason: Pain, Severe) Combivent Respimat 20-100 mcg/actuation Mist 1 puff INHALATION QID PRN (Reason: Wheezing) Patient Comments: uses every morning and every night Rx Instructions: space evenly during waking hours ropinirole 4 mg Tablet 4 mg PO QPM Rx Instructions: administer 1-3 hours before bedtime with food. ipratropium-albuterol 0.5 mg-3 mg(2.5 mg base)/3 mL Solution For Nebulization 3 ml INHALATION Q6H PRN (Reason: Shortness Of Breath) ondansetron 8 mg tablet,disintegrating 8 mg translingual Q8H PRN (Reason: NAUSEA/VOMITING) glipizide 2.5 mg tablet extended release 24hr 2.5 mg PO QAM Rx Instructions: TAKE THIS MED 30 MINUTES BEFORE A MEAL. metoprolol succinate 25 mg tablet extended release 24 hr 12.5 mg PO QAM loratadine [Claritin] 10 mg Tablet 10 mg PO QAM pregabalin 100 mg capsule 100 mg PO BID docusate sodium 100 mg Capsule 100 mg PO BID PRN (Reason: Constipation) baclofen 5 mg Tablet 5 mg PO TID Eliquis 5 mg tablet 5 mg PO .AMHS Held potassium chloride [Klor-Con 10] 10 mEq tablet extended release 10 meq PO BID Hold Instructions: Resume on 08/23/25. Hold in the setting of NICHELLE until seen by PCP for follow-up furosemide [Lasix] 20 mg tablet 20 mg PO QAM Hold Instructions: Resume on 08/23/25. Hold in the setting of NICHELLE until seen by PCP for follow-up Patient Comments: don't always take every morning depending on daily schedule losartan 25 mg tablet 25 mg PO QAM Hold Instructions: Resume on 08/23/25. Hold in setting of NICHELLE until seen by PCP for follow-up Discontinued nitroglycerin [Nitrostat] 0.4 mg Tablet, Sublingual 0.4 mg sublingual DIRECTED MDD 3 DOSES/15 MINUTES PRN (Reason: Chest Pain) Discharge Orders: Discharge Order (Routine); Ordered 08/09/25 Ordered By: Wero Dickson/Other Patient Handouts: Managing Type 2 Diabetes Admission Data Admit Date/Time: 08/06/25 17:43 Attending Provider: Ender Briscoe Admit Provider: Padmini Barney Primary Care Provider: Benoit Lozano Other Providers: Ernesto Singleton Other Interventions: Discharge Summary Assessment (RN) Last Done: 08/09/25 12:17 Hospital Stay Data Consultations 08/06/25 17:10 ED Decision to Admit Stat Discharge Instructions Given to Patient (Per Discharging Provider) You were hospitalized at [facility] from 08/06 to 08/09 for progressive/worsening shortness of breath x 1 week prior to arrival. Your labs and imaging were consistent with an acute episode of COPD exacerbation. You were treated with IV steroids and nebulizers while in the hospital, and reported gradual improvement in your symptoms. Additionally, you were treated with antibiotics for a urinary tract infection while in the hospital. We recommend that you continue to take the full course of antibiotics upon discharge. Given your vitals are currently stable, your white blood cell count is not elevated to indicate signs of severe infection, and you report significant improvement in your breathing, we feel that you are safe to return home at this time. New prescriptions on discharge: Nitrofurantoin ("Macrobid") 100 mg capsules twice daily x 5 days Prednisone 5 mg tablet taper x 8 additional days Please follow instructions on the label; start by taking 8 tablets (40 mg) on 08/10, and decrease by 1 tablet per day for each day thereafter (example: take 7 tablets or 35 mg on 08/11) We recommend that you follow-up with your PCP in the next 7 to 10 days for a transitional care appointment. Prior to his appointment, we recommend that you have blood work drawn to assess your kidney function. Please do NOT take the following medications until seen by your PCP for follow- up: Losartan 25 mg tablets Lasix 20 mg tablets Potassium chloride 10 mEq tablets We also recommend that you hold baclofen or only take it as needed over the next several days if possible. Please note that you have an acute kidney injury on discharge. We measure kidney function based on a blood test called "creatinine", which we want to be low or around your baseline. While your baseline creatinine is 1.1, it was elevated at 1.7 just prior to discharge. It is suspected that this elevation was due to Lasix use while in the hospital, and is recommended that you discontinue Lasix as an outpatient and have repeat blood work drawn prior to follow-up. If you develop any new or worsening symptoms, such as fever, chills, night sweats, chest pain, pain with deep breaths, trouble breathing with exertion, blood in your cough, burning with urination, new onset of lower back pain, or decreased urinary output, please return to the emergency department immediately. It was a pleasure taking care of you. Please reach out with any questions or concerns. Sincerely, The Hospital medicine team at [facility] Total Time Total Time Spent Total Time Spent (In Minutes): 40 Coding Level of Care Code 88016 INP/OBS DISCH >30 MIN Diagnoses Acute exacerbation of chronic obstructive pulmonary disease J44.1 Acute kidney injury N17.9 HTN (hypertension) I10 DMII (diabetes mellitus, type 2) E11.9 Depression F32.A Elevated brain natriuretic peptide (BNP) level R79.89 HLD (hyperlipidemia) E78.5
[2025-08-09] MEDS: LACTATED RINGER'S 500 ML IV SCH (12:02)
[2025-08-09 12:19] VITALS: PULSE 97
== END 2025-08-09 14:00 | disposition home or self-care (01) ==
LOC: ED 15:05 → 2S 17:43 → SUATTDRO 17:43 → INTOOBSV 17:43 → 2S 18:21